=== PATIENT | female | born 1960 | race Caucasian/White ===

== ENCOUNTER → 2018-03-16 09:05 | Outpatient (CLI) | payer MEDICARE, BC, SELFPAY ==
--- NOTE | 2018-03-16 09:10 | US_ITS ---
US abdomen limited History: Ordering Physician:Montana Ibarra MD Patient Age: 57 years Comparison:None Findings: Pancreas:Unremarkable. No obvious mass or abnormal fluid collection. No ductal dilatation Liver:There is increased echogenicity of the liver with poor through transmission of sound consistent with fatty liver. Right Kidney:Unremarkable. Normal size and echogenicity. No hydronephrosis Gallbladder:No gallstones, gallbladder wall thickening, pericholecystic fluid, or biliary dilatation. There is a mild amount sludge within the gallbladder questioned clinical significance. Common bile duct is normal at 4 mm. Impression: 1. Hepatic steatosis. 2. No gallstones evident. Small amount of nonspecific gallbladder sludge
== END ==
PROVIDERS: PCP Internal Medicine Adolescent Medicine; Visit Provider Internal Medicine Adolescent Medicine
DX: R10.11 Right upper quadrant pain (principal)
CPT/HCPCS: 76705

== ENCOUNTER 2018-06-10 13:46 | Inpatient (IN) ==
--- NOTE | 2018-06-10 14:17 | Emergency Department Note ---
ED Disposition Clinical Impression: COPD exacerbation, Influenza B, Hypoxemia Disposition: Admitted As Inpatient Condition on Discharge: Fair Referrals: Mango Albert MD [Primary Care Provider] - - Critical Care Critical Care Time: Yes Attestation: On 06/10/18, the high probability of a clinically significant, sudden or life threatening deterioration of the following system(s) required my full and direct attention, intervention and personal management. The time I documented below is in addition to time spent performing reported procedures but includes the following listed in this critical care notation. Total Critical Care Time: 37 Vital system(s) involved:: Respiratory Failure My critical care processes included: Assessment & monitoring of V/S, Initial and Re-exams, Data Review/Interpretation, Coordinating Care, Medication Orders and management, Documentation Medical Decision Making - Papa Inquiry Pt receiving controlled substance: No Vital Signs: 06/10/18 14:02 06/10/18 14:15 06/10/18 16:16 Temperature 99.9 F H 101.1 F H 98.9 F Temperature Source Oral Oral Oral Pulse Rate [Left Radial] 101 H 82 Pulse Rate [Right Radial] 104 H Respiratory Rate 21 28 H 22 Blood Pressure [Right Arm] 131/63 136/65 116/80 Blood Pressure Mean [Right Arm] 85 88 92 Blood Pressure Source [Right Arm] Automatic Cuff Automatic Cuff Blood Pressure Position [Right Arm] Sitting Sitting 02 Sat by Pulse Oximetry 88 L 88 L 91 L Oxygen Delivery Method Room Air Room Air Room Air Oxygen Flow Rate (LPM) 06/10/18 16:35 06/10/18 17:02 06/10/18 17:40 Temperature Temperature Source Pulse Rate [Left Radial] 91 H Pulse Rate [Right Radial] Respiratory Rate Blood Pressure [Right Arm] 113/57 L 113/60 Blood Pressure Mean [Right Arm] 75 77 Blood Pressure Source [Right Arm] Automatic Cuff Automatic Cuff Blood Pressure Position [Right Arm] Sitting Sitting 02 Sat by Pulse Oximetry 91 L 92 L 87 L Oxygen Delivery Method Room Air Room Air Room Air Oxygen Flow Rate (LPM) 06/10/18 17:41 Temperature Temperature Source Pulse Rate [Left Radial] Pulse Rate [Right Radial] Respiratory Rate Blood Pressure [Right Arm] Blood Pressure Mean [Right Arm] Blood Pressure Source [Right Arm] Blood Pressure Position [Right Arm] 02 Sat by Pulse Oximetry 93 L Oxygen Delivery Method Nasal Cannula Oxygen Flow Rate (LPM) 3 - Lab Data Lab Results 06/10/18 14:15: Influenza Type A Ag Negative, Influenza Type B Ag Positive A 06/10/18 14:23: WBC 11.4 H, RBC 4.47, Hgb 14.1, Hct 42.8, MCV 95.6, MCH 31.5 H, MCHC 32.9, RDW 13.2, Plt Count 241, MPV 6.7 L, Neut % (Auto) 85.7 H, Lymph % (A uto) 9.5 L, [place] % (Auto) 4.4, Eos % (Auto) 0.1, Baso % (Auto) 0.2, Neut # (Auto) 9.7 H, Lymph # (Auto) 1.1, [place] # (Auto) 0.5, Eos # (Auto) 0.0, Baso # (Auto) 0.0, Total Counted 100, Neutrophils % (Manual) 88 H, Lymphocytes % (Manual) 2 L, Atypical Lymphs % 3.0, Monocytes % (Manual) 7, Platelet Estimate Normal, Stomatocytes 1+ 06/10/18 14:23: Sodium 133 L, Potassium 3.8, Chloride 96 L, Carbon Dioxide 26, Anion Gap 14.8, BUN 11, Creatinine 0.93, Estimated Creat Clear 113, Estimated GFR 62, Est GFR ( Amer) 75, Glucose 105, Calcium 8.8, Total Bilirubin 0.8, AST 27, ALT 38, Alkaline Phosphatase 77, Total Protein 7.9, Albumin 3.3 L, Globulin 4.6 H, Albumin/Globulin Ratio 0.7 L 06/10/18 14:23: Lactate 1.2 Result diagrams: 06/10/18 14:23 06/10/18 14:23 Orders (Tests/Meds): ED MEDICATIONS Generic Name Dose Route Start Last Admin Trade Name Freq PRN Reason Stop Dose Admin Sodium Chloride 10 ml 06/10/18 15:01 06/10/18 15:09 Saline Flush 10ml Syringe IV 07/10/18 15:00 10 ml NEEDED PRN Administration Maintain IV Site Discontinued Medications Generic Name Dose Route Start Last Admin Trade Name Freq PRN Reason Stop Dose Admin Acetaminophen 1,000 mg 06/10/18 14:20 06/10/18 14:30 Tylenol 500mg Tablet PO 06/10/18 14:21 1,000 mg ONCE ONE Administration Albuterol/Ipratropium 3 ml 06/10/18 16:37 06/10/18 16:38 Duoneb 3ml Neb IH 06/10/18 16:38 3 ml ONCE ONE Administration Methylprednisolone Sodium Succinate 125 mg 06/10/18 15:02 06/10/18 15:08 Solu-Medrol 125mg/2ml Vial IV 06/10/18 15:03 125 mg ONCE ONE Administration Ondansetron HCl 4 mg 06/10/18 15:12 06/10/18 15:20 Zofran 4mg/2ml Vial IV 06/10/18 15:13 4 mg ONCE ONE Administration Oseltamivir Phosphate 75 mg 06/10/18 15:12 06/10/18 15:26 Tamiflu 75mg Capsule PO 06/10/18 15:13 75 mg ONCE ONE Administration ORDERS Category Date Time Status Blood Culture Stat Micro 06/10/18 14:23 Received - Radiology Data #1 Image(s): Chest Image Reviewed: Yes I reviewed the patient's radiology image Atelectasis in the bases, no acute disease C7 - Physician Consults Physician Consulted: Bety Time: 18:06 Reason -: Admission Comment/Response: Agrees to admit the patient to the hospital. We discussed the patient's clinical information, including history, exam, laboratory and radiology results and ED course. Per hospital procedure, I will write temporary bridge inpatient orders on the patient. Specific orders requested by the admitting physician: No antibiotics. Continue oxygen, nebulizer treatments, steroids - Reevaluation(s) Time: 17:41 Reevaluation #1: Patient states she feels better, however I placed her on room air and her pulse ox went down to 87%. I recommend admission. General Adult HPI - General Stated complaint: SOA cough congested Time Seen by Provider: 06/10/18 14:17 Mode of Arrival: Wheelchair Source of Information: Patient Limitations: No Limitations Description of Symptoms (Recalled from ER Triage Doc. by RN): PT C/O SOA, COUGHING, HEADACHE, FEVER, BODYACHES, CHILLS THAT STARTED LAST NIGHT. PT REPORTS SHE HAS HAD A VIRUS FOR 2 WEEKS AND WAS EXPOSED TO THE FLU LAST WEEK. - History of Present Illness HPI narrative: Productive cough, fever, headache, body aches, rhinorrhea since last night. Prior to that has had URI symptoms for about 2 weeks. Went to the urgent treatment center, positive flu tests in the urgent treatment center, then sent here. Patient has a history of COPD. She is on Spiriva, pro-air, and Advair inhalers. She is not on oxygen at home. She is a smoker. She did not have a flu shot this year. - Related Data Home Medications Medication Instructions Recorded Confirmed Albuterol Sulfate [Proair Hfa 2 puff INHALATION Q6 06/10/18 06/10/18 90mcg/puff Inh] Atorvastatin Calcium [Atorvastatin 80 mg PO DAILY 06/10/18 06/10/18 80mg Tab] Citalopram Hydrobromide [Celexa 20 mg PO DAILY 06/10/18 06/10/18 20mg Tablet] Montelukast Sodium [Montelukast 10 mg PO DAILY 06/10/18 06/10/18 10mg Tab] Pantoprazole Sodium [Protonix 40mg 40 mg PO DAILY 06/10/18 06/10/18 tablet] Tiotropium [place] [Spiriva 1 puff INHALATION Q6 06/10/18 06/10/18 18mcg/puff inhaler] Trazodone HCl 50 mg PO HS 06/10/18 06/10/18 Allergies Allergy/AdvReac Type Severity Reaction Status Date / Time cephalexin [From KEFLEX] Allergy Mild Verified 06/10/18 14:30 Penicillins Allergy Mild Verified 06/10/18 14:22 [facility] History - Hepatitis A Screen Drug use history?: No High risk sexual behaviors?: No History of sexually transmitted infection?: No Currently employed?: No Childcare worker?: No Do you have indoor plumbing?: Yes Do you have electricity?: Yes Attestation statement:: This patient has been screened for Hepatitis A risk factors. I have reviewed the patient's past medical history: Yes - Social History Smoking Status: Current every day smoker Tobacco Type: cigarettes # Packs/Day (cigarettes): 1 Alcohol Intake: never Occupational Status: other - Psychiatric History Expresses thoughts of harming self/others: None Suicide Plan Description: No Plan ROS Obtained: Yes All systems reviewed & no additional complaints - Constitutional Constitutional: Reports body ache, Reports chills, Reports fever(s) - ENT Ears, Nose, Mouth, and Throat: Reports nasal discharge, Denies sore throat - Cardiovascular Cardiovascular: Denies chest pain - Respiratory Respiratory: Yes cough, Yes dyspnea, Yes excessive phlegm production - Gastrointestinal Gastrointestingal: Denies: diarrhea, vomiting Physical Exam - General General appearance: alert, in no apparent distress - Head Head exam: atraumatic, normocephalic - Eye Eye exam: Present: normal appearance, PERRL, EOMI - ENT ENT exam: Present: normal exam, normal oropharynx, mucous membranes moist - Neck Neck exam: Present: normal inspection, full ROM, trachea midline. Absent: meningismus - Chest Chest inspection: Present: normal inspection, symmetric chest wall rise - Respiratory Respiratory exam: Present: normal lung sounds bilaterally, wheezes. Absent: respiratory distress - Cardiovascular Cardiovascular exam: Present: normal rhythm, tachycardia, normal heart sounds - Abdominal Exam Abdominal exam: Present: soft. Absent: distention, tenderness - Extremities Exam Extremities exam: Present: normal inspection, full ROM - Neurological Exam Neurological exam: Present: alert, oriented X3 - Psychiatric Psychiatric exam: Present: normal affect, normal mood - Skin Skin exam: Present: warm, dry
[2018-06-10 14:42] LABS: Basophils % 0.2 % (0.1-2.0); Eosinophils % 0.1 % (0.1-12.0); Hematocrit 42.8 % (37.0-47.0); Hemoglobin 14.1 g/dL (12.2-16.2); Lymphocytes # 1.1 K/mm3 (0.7-4.5); Lymphocytes % 9.5 % (10-50); Mean Corpuscular HGB Conc 32.9 g/dL (31.8-35.4); Mean Corpuscular Hemoglobin 31.5 pg (27.0-31.2); Mean Corpuscular Volume 95.6 fl (81-99); Mean Platelet Volume 6.7 fl (7.4-10.4); Monocytes # 0.5 K/mm3 (0.1-1.0); Monocytes % 4.4 % (1.7-9.3); Neutrophils # 9.7 K/mm3 (1.8-7.8); Neutrophils % 85.7 % (37.0-80.0); Platelet Count 241 K/mm3 (142-424); Red Blood Count 4.47 M/mm3 (4.20-5.40); Red Cell Distribution Width 13.2 % (11.5-17.5); White Blood Count 11.4 K/mm3 (4.8-10.8)
[2018-06-10 14:56] LABS: Albumin Level 3.3 gm/dL (3.4-5.0); Albumin/Globulin Ratio 0.7 (1.1-1.8); Anion Gap 14.8 mEq/L (5-15); Bilirubin,Total 0.8 mg/dL (0.2-1.0); Calcium 8.8 mg/dL (8.5-10.1); Globulin 4.6 gm/dl (1.3-3.2); Potassium 3.8 mmoL/L (3.5-5.1); Total Protein,Serum 7.9 gm/dL (6.4-8.2)
[2018-06-10 15:01] LABS: Lymphocytes % 2 % (10-50); Monocytes % 7 % (2-9); Neutrophils % 88 % (42-76); Total Cells Counted 100
[2018-06-10 15:02] LABS: Stomatocytes 1+
--- NOTE | 2018-06-11 07:31 | Pharmacy Consult Notes ---
[facility] Pharmacy VTE Monitoring - Patient Demographics Admission date: 06/10/18 Report Date: 06/11/18 Time: 07:31 Allergies/Adverse Reactions: Patient Allergies cephalexin [From KEFLEX] Allergy (Mild, Verified 06/10/18 14:30) Penicillins Allergy (Mild, Verified 06/10/18 14:22) Height: 1.65 m Weight: 107.728 kg Patient Problems: Current Active Problems COPD exacerbation (Acute) Influenza B (Acute) Hypoxemia (Acute) - VTE Risk Labs: VTE Related Lab Results Hgb 14.1 g/dL (12.2-16.2) 06/10/18 14:23 Hct 42.8 % (37.0-47.0) 06/10/18 14:23 Plt Count 241 K/mm3 (142-424) 06/10/18 14:23 BUN 11 mg/dL (7-18) 06/10/18 14:23 Creatinine 0.93 mg/dL (0.55-1.02) 06/10/18 14:23 Estimated Creat Clear 113 mL/min (50-200) 06/10/18 14:23 Was VTE Risk Assessment Performed: Yes VTE Score: 5 VTE Risk Level: Low Risk - Prophylaxis VTE Prophylaxis Ordered?: Yes Types of VTE Prophylaxis: TEDS Knee High Location of Applied Device: Bilateral Lower Extremeties - VTE Diagnosis Confirmed Treatment or plan recommended: Continue Current Treatment
--- NOTE | 2018-06-11 08:24 | H&P/Discharge Summary ---
General - General Admission date:: 06/10/18 Discharge date: 06/11/18 *Admission Date: 06/10/18 *Chief complaint: Cough/shortness of air *History of present illness: 57-year-old white female with COPD, who is on ICS/lama/laba inhaler therapy at home who came to the emergency department with cough, wheezing and shortness of air. Found to have positive influenza B titer, chest x-ray was clear, but was wheezing and mildly hypoxic and was admitted to the hospital for oxygen therapy, IV fluids and nebulizer treatments with pulmonary toilet. [facility] History I have reviewed the patient's past medical history: Yes Medical History: Reports:: Chronic Obstructive Pulmonary Disease (COPD), Hyperlipidemia Denies:: Cancer, Diabetes Mellitus Type 1, Diabetes Mellitus Type 2, MRSA *Have you ever received a pneumonia vaccine?: Yes *Have you received a flu vaccine this season?: No Other Medical History: Reports: Hypothyroidism Comment:: Sleep apnea Laterality Cases: Bilateral: Carpal Tunnel Release, Other Other Surgeries: Yes: Colonoscopy, Dilation and Curettage, EGD, Other Amputation: No Fractures: No - *Social History Educational Level: Completed High School Smoking Status: Current every day smoker Tobacco Type: cigarettes # Packs/Day (cigarettes): 1 Alcohol Intake: never *Occupational Status:: disabled Housing: other Household Members: other *Travel in the last 8 weeks: None - Psychiatric History Expresses thoughts of harming self/others: None Suicide Plan Description: No Plan Family Hx:: Cancer, Diabetes, Hyperlipidemia, Hypertension, Stroke Review of Systems - Review of Systems Review of systems:: pertinent systems reviewed and negative unless documented below - Constitutional Reports body ache(s), Reports chills, Reports fever(s), Denies anorexia - Eyes Denies blind spots, Denies blurry vision - ENT Denies abnormal hearing - *Cardiovascular Reports shortness of breath, Reports shortness of breath with activity, Denies chest pain, Denies chest pain at rest, Denies generalized swelling, Denies irregular heart rhythm - *Respiratory Reports chest congestion, Reports cough, Reports shortness of breath, Reports shortness of breath with activity, Denies change in phlegm color - *Gastrointestinal Denies abdominal pain, Denies belching, Denies bloating - *Musculoskeletal Denies abnormal walking, Denies joint pain - Integumentary/Breasts Denies hair loss, Denies bleeding lesions Exam Vital signs and Labs for Last 24 Hours: Temp Pulse Resp BP Pulse Ox 98.1 F 75 18 106/54 L 90 L 06/11/18 04:00 06/11/18 06:02 06/11/18 04:00 06/11/18 04:00 06/11/18 06:02 Laboratory Results - last 24 hr 06/10/18 14:15: Influenza Type A Ag Negative, Influenza Type B Ag Positive A 06/10/18 14:23: WBC 11.4 H, RBC 4.47, Hgb 14.1, Hct 42.8, MCV 95.6, MCH 31.5 H, MCHC 32.9, RDW 13.2, Plt Count 241, MPV 6.7 L, Neut % (Auto) 85.7 H, Lymph % (Auto) 9.5 L, [place] % (Auto) 4.4, Eos % (Auto) 0.1, Baso % (Auto) 0.2, Neut # (Auto) 9.7 H, Lymph # (Auto) 1.1, [place] # (Auto) 0.5, Eos # (Auto) 0.0, Baso # (Auto) 0.0, Total Counted 100, Neutrophils % (Manual) 88 H, Lymphocytes % (Ma nual) 2 L, Atypical Lymphs % 3.0, Monocytes % (Manual) 7, Platelet Estimate Normal, Stomatocytes 1+ 06/10/18 14:23: Sodium 133 L, Potassium 3.8, Chloride 96 L, Carbon Dioxide 26, Anion Gap 14.8, BUN 11, Creatinine 0.93, Estimated Creat Clear 113, Estimated GFR 62, Est GFR ( Amer) 75, Glucose 105, Calcium 8.8, Total Bilirubin 0.8, AST 27, ALT 38, Alkaline Phosphatase 77, Total Protein 7.9, Albumin 3.3 L, Globulin 4.6 H, Albumin/Globulin Ratio 0.7 L 06/10/18 14:23: Lactate 1.2 I & O for Last 24 hours: Intake & Output 06/08/18 06/09/18 06/10/18 06/11/18 11:59 11:59 11:59 11:59 Intake Total 260 / 260 Balance 260 / 260 Weight 237 lb 8 oz Microbiology Reports for the Last 24 Hours: Microbiology 06/11/18 04:30 Sputum - Expectorated Sputum Gram Stain - Final Narrative: Patient is pleasant. Talkative. On room air and able to complete sentences. Eating breakfast well. ENT exam clear. No JVD. Lungs have some rhonchi but symmetric air movement with minimal expiratory wheezing. No crackles. Heart rate regular. No edema, no clubbing, no rash. Abdomen soft. Cranial nerves symmetric, peripheral nerve exam intact. Hospital Course Hospital Course: Patient was admitted overnight. This morning oxygen requirement is improving. Able to eat well and talk without shortness of air. Plan okay to discharge patient home on prednisone, Tamiflu for flu coverage and duo nebs. Short-term follow-up in our office. Results Labs on day of discharge: Labs from last 24 hours 06/10/18 06/10/18 06/10/18 14:23 14:23 14:23 WBC 11.4 H RBC 4.47 Hgb 14.1 Hct 42.8 MCV 95.6 MCH 31.5 H MCHC 32.9 RDW 13.2 Plt Count 241 MPV 6.7 L Neut % (Auto) 85.7 H Lymph % (Auto) 9.5 L [place] % (Auto) 4.4 Eos % (Auto) 0.1 Baso % (Auto) 0.2 Neut # (Auto) 9.7 H Lymph # (Auto) 1.1 [place] # (Auto) 0.5 Eos # (Auto) 0.0 Baso # (Auto) 0.0 Total Counted 100 Neutrophils % (Manual) 88 H Lymphocytes % (Manual) 2 L Atypical Lymphs % 3.0 Monocytes % (Manual) 7 Platelet Estimate Normal Stomatocytes 1+ Sodium 133 L Potassium 3.8 Chloride 96 L Carbon Dioxide 26 Anion Gap 14.8 BUN 11 Creatinine 0.93 Estimated Creat Clear 113 Estimated GFR 62 Est GFR ( Amer) 75 Glucose 105 Lactate 1.2 Calcium 8.8 Total Bilirubin 0.8 AST 27 ALT 38 Alkaline Phosphatase 77 Total Protein 7.9 Albumin 3.3 L Globulin 4.6 H Albumin/Globulin Ratio 0.7 L Influenza Type A Ag Influenza Type B Ag 06/10/18 14:15 WBC RBC Hgb Hct MCV MCH MCHC RDW Plt Count MPV Neut % (Auto) Lymph % (Auto) [place] % (Auto) Eos % (Auto) Baso % (Auto) Neut # (Auto) Lymph # (Auto) [place] # (Auto) Eos # (Auto) Baso # (Auto) Total Counted Neutrophils % (Manual) Lymphocytes % (Manual) Atypical Lymphs % Monocytes % (Manual) Platelet Estimate Stomatocytes Sodium Potassium Chloride Carbon Dioxide Anion Gap BUN Creatinine Estimated Creat Clear Estimated GFR Est GFR ( Amer) Glucose Lactate Calcium Total Bilirubin AST ALT Alkaline Phosphatase Total Protein Albumin Globulin Albumin/Globulin Ratio Influenza Type A Ag Negative Influenza Type B Ag Positive A DS: Diagnosis - Discharge Diagnosis (1) COPD exacerbation Status: Acute (2) Hypoxemia Status: Acute (3) Influenza B Status: Acute Discharge Medications - Medications for Discharge Home Medication List at Discharge: No Action Trazodone HCl 25 - 50 mg PO HS Tiotropium [place] [Spiriva 18mcg/puff inhaler] 1 puff INHALATION Q6H Pantoprazole Sodium [Protonix 40mg tablet] 40 mg PO DAILY Montelukast Sodium [Montelukast 10mg Tab] 10 mg PO HS Atorvastatin Calcium [Atorvastatin 80mg Tab] 80 mg PO DAILY Albuterol Sulfate [Proair Hfa 90mcg/puff Inh] 2 puff INHALATION Q6H Levothyroxine Sodium [Levothyroxine 150mcg (0.15mg) Tab] 150 mcg PO DAILY Citalopram Hydrobromide [Celexa] 40 mg PO DAILY Disposition Disposition: Home, Self-Care
== END 2018-06-11 10:21 | disposition home or self-care (01) | DRG 195 ==
LOC: UTC 13:46 → 2ND 18:21
PROVIDERS: ADMIT Internal Medicine Adolescent Medicine; ATTEND Internal Medicine Adolescent Medicine
CPT/HCPCS: J2405

== ENCOUNTER → 2018-12-13 08:12 | Outpatient (CLI) | payer MEDICARE, BC, SELFPAY ==
[2018-12-13 13:48] LABS: Hemoglobin A1C 6.2 % (0.0-7.0)
[2018-12-13 14:28] LABS: Alanine Aminotransferase 40 U/L (12-78); Albumin Level 3.5 gm/dL (3.4-5.0); Albumin/Globulin Ratio 0.9 (1.1-1.8); Alkaline Phosphatase 85 U/L (46-116); Anion Gap 13.3 mEq/L (5-15); Aspartate Amino Transferase 18 U/L (15-37); Bilirubin,Total 0.3 mg/dL (0.2-1.0); Blood Urea Nitrogen 12 mg/dL (7-18); Calcium 8.9 mg/dL (8.5-10.1); Carbon Dioxide 30 mmol/L (21.0-32.0); Chloride 102 mmol/L (98-107); Chol/HDL Ratio 2.8 (1-3.5); Cholesterol 160 mg/dL (140-200); Creatinine,Serum 0.82 mg/dL (0.55-1.02); Estimated Glomerular Filt Rate 71 ml/min (>60); GFR (African American) 86 ML/MIN (>60); Globulin 3.9 gm/dl (1.3-3.2); Glucose 100 mg/dL (74-106); HDL Cholesterol 57 mg/dL (29-89); LDL Cholesterol 87 mg/dL (0-130); Potassium 4.3 mmoL/L (3.5-5.1); Sodium 141 mmol/L (136-145); Thyroid Stimulating Hormone 3.87 uIU/ml (0.358-3.740); Total Protein,Serum 7.4 gm/dL (6.4-8.2); Triglycerides 81 mg/dL (30-200); VLDL Cholesterol 16 mg/dL (0-40)
== END ==
PROVIDERS: PCP Internal Medicine Adolescent Medicine; Visit Provider Internal Medicine Adolescent Medicine
DX: E11.69 Type 2 diabetes mellitus with other specified complication (principal); E78.2 Mixed hyperlipidemia; E03.9 Hypothyroidism, unspecified
CPT/HCPCS: 36415; 80053; 80061; 83036; 84443

== ENCOUNTER 2019-04-19 16:22 | Observation (INO) ==
--- NOTE | 2019-04-19 16:29 | Emergency Department Note ---
ED Disposition Clinical Impression: Acute exacerbation of chronic obstructive pulmonary disease (COPD), Hypoxia, Respiratory distress Right lower lobe pneumonia Qualifiers: Pneumonia type: due to unspecified organism Qualified Code(s): J18.9 - Pneumonia, unspecified organism Disposition: Admitted as Observation Condition on Discharge: Fair (Stable) Time of Disposition: 17:44 - Critical Care Critical Care Time: No Attestation: On 04/19/19, the high probability of a clinically significant, sudden or life threatening deterioration of the following system(s) required my full and direct attention, intervention and personal management. The time I documented below is in addition to time spent performing reported procedures but includes the following listed in this critical care notation. Medical Decision Making - Medical Records Medical records reviewed: Yes: I reviewed the patient's medical records. - Papa Inquiry Pt receiving controlled substance: No Papa was queried for this patient: No Vital Signs: 04/19/19 16:23 04/19/19 17:49 04/19/19 18:00 Temperature 99.9 F H Temperature Source Oral Pulse Rate 105 H Pulse Rate [Right] 110 H 100 H Respiratory Rate 26 H 24 Blood Pressure [Right Arm] 135/69 145/73 H Blood Pressure Mean [Right Arm] 91 97 Blood Pressure Source [Right Arm] Automatic Cuff Blood Pressure Position [Right Arm] Supine 02 Sat by Pulse Oximetry 91 L 93 L Oxygen Delivery Method Room Air Nasal Cannula Nasal Cannula Oxygen Flow Rate (LPM) 2 - Lab Data Lab Results 04/19/19 16:00: Troponin I < 0.02 04/19/19 16:00: WBC 15.3 H, RBC 4.50, Hgb 14.0, Hct 43.0, MCV 95.5, MCH 31.1, MCHC 32.6, RDW 13.7, Plt Count 301, MPV 7.7, Neut % (Auto) 79.8, Lymph % (Auto) 14.4, [place] % (Auto) 4.5, Eos % (Auto) 0.9, Baso % (Auto) 0.4, Neut # (Auto) 12.2 H, Lymph # (Auto) 2.2, [place] # (Auto) 0.7, Eos # (Auto) 0.1, Baso # (Auto) 0.1, Total Counted 100, Neutrophils % (Manual) 74, Band Neutrophils % 2.0, Lymphocytes % (Manual) 20, Monocytes % (Manual) 4, Platelet Estimate Normal, RBC Morphology Normal 04/19/19 16:00: Sodium 141, Potassium 4.2, Chloride 104, Carbon Dioxide 29, Anion Gap 12.2, BUN 10, Creatinine 1.04 H, Estimated Creat Clear 52, Estimated GFR 54 L, Est GFR ( Amer) 66, Glucose 105, Calcium 8.7 04/19/19 16:00: B-Natriuretic Peptide 30 04/19/19 16:00: Magnesium 1.8, Total Bilirubin 0.4, Direct Bilirubin 0.1, Indirect Bilirubin 0.3, AST 21, ALT 45, Alkaline Phosphatase 84, Total Protein 7.7, Albumin 3.5 04/19/19 16:32: Specimen Source Right radial, O2 % room air, ABG pH 7.43, ABG pCO2 42.0, ABG pO2 55.9 L, ABG HCO3 27.4 H, ABG Total CO2 28.7 H, ABG O2 Saturation 90, ABG Base Excess 3.1 H, Hardeep Test Acceptable 04/19/19 16:46: Influenza Type A Ag Negative, Influenza Type B Ag Negative 04/19/19 16:53: Urine Color Yellow, Urine Appearance Clear, Urine pH 7.0, Ur Specific [place] 1.020, Urine Protein Trace, Urine Glucose (UA) Negative, Urine Ketones Negative, Urine Blood 3+, Urine Nitrate Negative, Urine Bilirubin Negative, Urine Urobilinogen 1.0, Ur Leukocyte Esterase Trace, Urine RBC 10-20, Urine WBC 10-20, Ur Squamous Epith Cells 5-10, Amorphous Sediment Trace, Urine Bacteria None 04/19/19 17:04: Lactate 1.1 Result diagrams: 04/19/19 16:00 04/19/19 16:00 Orders (Tests/Meds): ED MEDICATIONS Generic Name Dose Route Start Last Admin Trade Name Freq PRN Reason Stop Dose Admin Levofloxacin/Dextrose 750 mg in 150 mls @ 100 mls/hr 04/19/19 17:45 04/19/19 17:38 Levofloxacin 750mg/150ml Premix IV 05/03/19 17:44 100 mls/hr Q24H WILTON Administration Protocol Sodium Chloride 10 ml 04/19/19 17:22 04/19/19 17:47 Rad-Saline Flush 10ml Syringe IV 05/19/19 17:21 10 ml NEEDED PRN Administration Maintain IV Site Sodium Chloride 10 ml 04/19/19 17:34 04/19/19 17:47 Rad-Saline Flush 10ml Syringe IV 05/19/19 17:33 10 ml NEEDED PRN Administration Maintain IV Site Discontinued Medications Generic Name Dose Route Start Last Admin Trade Name Kamq PRN Reason Stop Dose Admin Acetaminophen 1,000 mg 04/19/19 16:59 04/19/19 17:04 Tylenol 500mg Tablet PO 04/19/19 17:00 1,000 mg ONCE ONE Administration Albuterol Sulfate 10 mg 04/19/19 16:32 04/19/19 17:22 Albuterol 0.083% 2.5mg/3ml Neb IH 04/19/19 16:33 10 mg ONCE ONE Administration Ioversol 70 ml 04/19/19 17:22 04/19/19 17:35 Rad-Optiray 350 100ml Vial IV 04/19/19 17:23 70 ml ONCE ONE Administration Protocol Ioversol 70 ml 04/19/19 17:34 04/19/19 17:47 Rad-Optiray 350 100ml Vial IV 04/19/19 17:35 70 ml ONCE ONE Administration Protocol Methylprednisolone Sodium Succinate 125 mg 04/19/19 16:33 04/19/19 16:43 Solu-Medrol 125mg/2ml Vial IV 04/19/19 16:34 125 mg ONCE ONE Administration Ondansetron HCl 4 mg 04/19/19 16:30 04/19/19 16:43 Zofran 4mg/2ml Vial IV 04/19/19 16:31 4 mg ONCE ONE Administration Sodium Chloride 10 ml 04/19/19 17:22 04/19/19 17:35 Rad-Ns 50ml Vial IV 04/19/19 17:23 10 ml ONCE ONE Administration ORDERS Category Date Time Status CT Chest w/PE protocol [CT angio chest] Stat Cat Scan 04/19/19 16:34 Taken XR chest portable Stat Exams 04/19/19 16:30 Taken Troponin I Q3H Lab 04/19/19 19:30 Ordered Troponin I Q3H Lab 04/19/19 22:30 Ordered Blood Culture Stat Micro 04/19/19 17:04 Received Urine Culture Stat Micro 04/19/19 16:53 Received ECG Request by /Nse Stat Y 04/19/19 16:30 Ordered - Radiology Data #1 Image(s): Chest Image Reviewed: Yes I reviewed the patient's radiology image Patient's chest x-ray preliminarily read by myself: No free air. No effusion. Blunting of right costophrenic angle. Some haziness to the left costophrenic angle and a left lower lung field area laterally. - CT Data CT Scan: Chest Time Received: 18:29 Findings Narrative: CT angiography chest with IV contrast impression: 1. No discrete pulmonary emboli are seen, although enhancement is less than optimal. 2. Suspected right lower lobe infiltrate/infection, although more extensive pleural parenchymal scarring may have this appearance as well. 3. There is a 1.4 cm retro-cobbledpretracheal lymph node. 4. A follow-up exam is suggested if symptoms persist. - ECG Data Tracing #1 I reviewed this ECG and interpreted as documented below: (EKG at 4:27 PM showed sinus tachycardia with a rate of [address]-T changes noted.) Medical Decision Narrative: 16:46 I have evaluated this patient. EKG performed which showed a sinus tachycardia but otherwise was normal. Portable chest x-ray and cardiopulmonary labs ordered. I have also ordered an albuterol 10 mg nebulizer treatment to be given continuously over 1 hour. I have also ordered Solu-Medrol 125 mg IV push. 17:31 I have discussed this patient's case with her PCP Dr. Albert, will accept care/admission of this patient to observation. I have ordered Levaquin 750 mg IV piggyback, IV steroids and neb treatments for this patient. 18:30 patient reassessed and she appears improved also though she is still having end expiratory wheezing. She is ventilating better. I have discussed results of work-up, diagnosis and care plan with patient to include admission. Patient understands, agrees and all questions answered. Patient will now be admitted. Resp/SOB HPI - General Chief Complaint: Shortness of Breath/Dyspnea Stated Complaint: SOA Time Seen by Provider: 04/19/19 16:22 Mode of Arrival: EMS Source of Information: Patient, EMS Limitations: No Limitations - History of Present Illness Patient is here in emergency room from home via EMS complaining of shortness of breath. Patient has longstanding history of COPD. She does smoke. Patient states that she was down visiting family in [place] and started not feeling well yesterday. Patient states that she has had a productive cough with nasty phlegm since Monday. She began using Mucinex Monday night. She states that she pretty much laid around in bed all day yesterday because she did not feel well. She was driven home today here to [place]. Patient denies having any chest pain. She states that her shortness of breath is gotten worse and that she does have significant dyspnea on exertion. No fever. No chest pain. No abdominal pain. - Related Data Home Medications Medication Instructions Recorded Confirmed Albuterol Sulfate [Proair Hfa 2 puff INHALATION Q6H 06/10/18 06/11/18 90mcg/puff Inh] Atorvastatin Calcium [Atorvastatin 80 mg PO DAILY 06/10/18 06/10/18 80mg Tab] Montelukast Sodium [Montelukast 10 mg PO HS 06/10/18 06/11/18 10mg Tab] Pantoprazole Sodium [Protonix 40mg 40 mg PO DAILY 06/10/18 06/10/18 tablet] Tiotropium [place] [Spiriva 1 puff INHALATION Q6H 06/10/18 06/11/18 18mcg/puff inhaler] Trazodone HCl 25 - 50 mg PO HS 06/10/18 06/11/18 Citalopram Hydrobromide [Celexa] 40 mg PO DAILY 06/11/18 06/11/18 Levothyroxine Sodium 150 mcg PO DAILY 06/11/18 06/11/18 [Levothyroxine 150mcg (0.15mg) Tab] Previous Rx's Medication Instructions Recorded Ipratropium/Albuterol Sulfate 3 ml IH TID PRN #90 neb 06/11/18 [Duoneb 3mL neb] Oseltamivir Phosphate [Tamiflu 75 mg PO BID #10 capsule 06/11/18 75mg Capsule] Allergies Allergy/AdvReac Type Severity Reaction Status Date / Time cephalexin [From [facility]] Allergy Mild Verified 06/10/18 14:30 Penicillins Allergy Mild Verified 06/10/18 14:22 [facility] History - Hepatitis A Screen Drug use history?: No Attestation statement:: This patient has been screened for Hepatitis A risk factors. I have reviewed the patient's past medical history: Yes Medical History: Reports:: Chronic Obstructive Pulmonary Disease (COPD), Hyperlipidemia Denies:: Cancer, Diabetes Mellitus Type 1, Diabetes Mellitus Type 2, MRSA Other Medical History: Reports: Hypothyroidism Comment: Sleep apnea Laterality Cases: Bilateral: Carpal Tunnel Release, Other Other Surgeries: Yes: Colonoscopy, Dilation and Curettage, EGD, Other Amputation: No Fractures: No - Social History Smoking Status: Current every day smoker Tobacco Type: cigarettes # Packs/Day (cigarettes): 1 Alcohol Intake: never Occupational Status: disabled Housing: other Household Members: other Family Hx:: Cancer, Diabetes, Hyperlipidemia, Hypertension, Stroke ROS Obtained: Yes All systems reviewed & no additional complaints - Constitutional Constitutional: Reports system reviewed and no additional complaints, except as docu, Denies chills, Reports fatigue (The past 24 hours), Denies fever(s) - Eyes Eyes: Reports system reviewed and no additional complaints, except as docu - ENT Ears, Nose, Mouth, and Throat: Reports system reviewed and no additional complaints, except as docu - Cardiovascular Cardiovascular: Reports system reviewed and no additional complaints, except as docu, Reports as per HPI, Denies chest pain, Reports dyspnea, Reports dyspnea on exertion, Denies leg edema - Respiratory Respiratory: Yes system reviewed and no additional complaints, except as docu, Yes as per HPI, Yes cough (Cough is been productive with discolored phlegm.), Yes dyspnea, Yes dyspnea on exertion - Gastrointestinal Gastrointestingal: Reports: system reviewed and no additional complaints, except as docu, as per HPI. Denies: abdominal pain, nausea, vomiting - Genitourinary Female Genitourinary: Reports system reviewed and no additional complaints, except as docu, Reports as per HPI, Reports urinary frequency, Reports other (Dysuria) - Musculoskeletal Musculoskeletal: Reports system reviewed and no additional complaints, except as docu - Integumentary/Breasts Skin/Breast: Reports system reviewed and no additional complaints, except as docu - Neurologic Neurologic: Reports system reviewed and no additional complaints, except as docu - Endocrine Endocrine: Reports system reviewed and no additional complaints, except as docu - Hematologic/Lymphatic Henatologic/Lymphatic: Reports system reviewed and no additional complaints, except as docu - Allergic/Immunologic Allergic/Immunologic: Reports system reviewed and no additional complaints, except as docu Physical Exam - General General appearance: alert, other (Patient appears mildly dyspneic.) - Head Head exam: atraumatic, normocephalic, normal inspection - Eye Eye exam: Present: PERRL, EOMI - ENT ENT exam: Present: mucous membranes moist, other (No drainage from ears or nares.) - Neck Neck exam: Present: full ROM, trachea midline - Chest Chest inspection: Present: normal inspection, symmetric chest wall rise - Respiratory Respiratory exam: Present: other (She has noted have equally diminished breath sounds bilaterally with end expiratory wheezing at the bibasilar area posteriorly skilled nursing up. Patient's cough is harsh and rhonchus.) - Cardiovascular Cardiovascular exam: Present: tachycardia, normal heart sounds. Absent: sys tolic murmur, rubs, gallop, clicks - Abdominal Exam Abdominal exam: Present: soft, normal bowel sounds, other (Obese). Absent: distention, tenderness, guarding, rebound - Extremities Exam Extremities exam: Present: normal inspection, full ROM. Absent: tenderness, pedal edema, calf tenderness - Neurological Exam Neurological exam: Present: alert, oriented X3, CN II-XII intact - Psychiatric Psychiatric exam: Present: normal mood, anxious (Mildly) - Skin Skin exam: Present: warm, dry, intact. Absent: rash, diaphoresis
[2019-04-19 16:41] LABS: Basophils # 0.1 K/mm3 (0-0.2); Basophils % 0.4 % (0.1-2.0); Eosinophils # 0.1 K/mm3 (0.0-0.4); Eosinophils % 0.9 % (0.1-12.0); Lymphocytes # 2.2 K/mm3 (0.7-4.5); Lymphocytes % 14.4 % (10-50); Mean Corpuscular HGB Conc 32.6 g/dL (31.8-35.4); Mean Corpuscular Volume 95.5 fl (81-99); Mean Platelet Volume 7.7 fl (7.4-10.4); Monocytes # 0.7 K/mm3 (0.1-1.0); Monocytes % 4.5 % (1.7-9.3); Neutrophils # 12.2 K/mm3 (1.8-7.8); Neutrophils % 79.8 % (37.0-80.0); Platelet Count 301 K/mm3 (142-424); Red Cell Distribution Width 13.7 % (11.5-17.5); White Blood Count 15.3 K/mm3 (4.8-10.8)
[2019-04-19 16:46] LABS: ABG Base Excess 3.1 mmol/L (-2.4-2.3); ABG HCO3 27.4 mmhg (22.0-26.0); ABG Oxygen Saturation 90 % (90-100); ABG PH 7.43 mmol/L (7.35-7.45); ABG PO2 55.9 mmhg (80-100); ABG TCO2 28.7 mmhg (23-27)
[2019-04-19 16:48] LABS: Allen's Test Acceptable; Oxygen room air %
[2019-04-19 16:53] LABS: Lymphocytes % 20 % (10-50); Monocytes % 4 % (2-9); Neutrophils % 74 % (42-76); RBC Morphology Normal; Total Cells Counted 100
[2019-04-19 16:54] LABS: Anion Gap 12.2 mEq/L (5-15); Calcium 8.7 mg/dL (8.5-10.1)
[2019-04-19 16:57] LABS: Albumin Level 3.5 gm/dL (3.4-5.0); Bilirubin,Direct 0.1 mg/dL (0.0-0.2); Bilirubin,Indirect 0.3 mg/dL (0.0-0.9); Bilirubin,Total 0.4 mg/dL (0.2-1.0); Total Protein,Serum 7.7 gm/dL (6.4-8.2)
[2019-04-19 16:59] LABS: Microscopic, Urine URINE MICROSCOPIC (MICROSCOPIC)
[2019-04-19 17:01] LABS: Appearance,Urine CLEAR (Clear); Bilirubin,Urine Negative (Negative); Blood, Urine 3+ (Negative); Color,Urine YELLOW (Yellow); Glucose,Urine (UA) Negative (Negative); Ketones,Urine Negative (Negative); Leukocyte Esterase,Urine TRACE (Negative); Protein,Urine TRACE (Negative)
[2019-04-19 17:11] LABS: Amorphous Sediment,Urine Trace /lpf
[2019-04-20 07:24] LABS: Basophils % 0.1 % (0.1-2.0); Hematocrit 41.7 % (37.0-47.0); Hemoglobin 13.1 g/dL (12.2-16.2); Lymphocytes # 1.2 K/mm3 (0.7-4.5); Lymphocytes % 8.6 % (10-50); Mean Corpuscular HGB Conc 31.5 g/dL (31.8-35.4); Mean Platelet Volume 7.7 fl (7.4-10.4); Monocytes # 0.3 K/mm3 (0.1-1.0); Monocytes % 2.3 % (1.7-9.3); Neutrophils # 12.4 K/mm3 (1.8-7.8); Platelet Count 314 K/mm3 (142-424); Red Blood Count 4.21 M/mm3 (4.20-5.40); Red Cell Distribution Width 13.5 % (11.5-17.5); White Blood Count 13.9 K/mm3 (4.8-10.8)
[2019-04-20 07:32] LABS: Anion Gap 13.1 mEq/L (5-15); Calcium 8.5 mg/dL (8.5-10.1)
[2019-04-20 07:46] LABS: Lymphocytes % 7 % (10-50); Monocytes % 2 % (2-9); Neutrophils % 91 % (42-76); RBC Morphology Normal; Total Cells Counted 100
--- NOTE | 2019-04-20 09:08 | History & Physical Report ---
*Admission Date: 04/19/19 *Chief complaint: Cough/shortness of air *History of present illness: 58-year-old white female, afflicted with COPD, nicotine abuse and morbid obesity presented to the emergency department with cough, congestion, shortness of air and was found to be hypoxic. CTA revealed no evidence of pulmonary embolism but did reveal infiltrate in the right chest and significant evidence of pulmonary scarring, COPD and some very nonspecific pulmonary nodules. Given her wheezing, need for repetitive neb treatments and significant comorbidities she is admitted to hospital for further diagnostic testing and inpatient therapy. [facility] History I have reviewed the patient's past medical history: Yes Medical History: Reports:: Chronic Obstructive Pulmonary Disease (COPD), Hyperlipidemia Denies:: Cancer, Diabetes Mellitus Type 1, Diabetes Mellitus Type 2, MRSA *Have you ever received a pneumonia vaccine?: Yes *Have you received a flu vaccine this season?: Yes Other Medical History: Reports: Hypothyroidism, Liver Disease Laterality Cases: Bilateral: Carpal Tunnel Release, Other Other Surgeries: Yes: Colonoscopy, Dilation and Curettage, EGD, Tubal Ligation, Other Amputation: No Fractures: No - *Social History Educational Level: Completed High School Smoking Status: Current every day smoker Tobacco Type: cigarettes # Packs/Day (cigarettes): 1 Alcohol Intake: never *Occupational Status:: disabled Housing: other Household Members: other *Travel in the last 8 weeks: Inside the [place] Family Hx:: Cancer, Coronary Artery Disease, Diabetes, Heart Attack, Hyperlipidemia, Hypertension, Stroke, Thyroid Disorder Review of Systems - Review of Systems Review of systems:: pertinent systems reviewed and negative unless documented below - Constitutional Denies anorexia, Denies body ache(s) - Eyes Denies blind spots, Denies blurry vision - ENT Denies abnormal hearing, Denies dizziness, Denies dry mouth - *Cardiovascular Reports shortness of breath, Reports shortness of breath with activity, Denies chest pain, Denies chest pain with activity - *Respiratory Reports change in phlegm color, Reports chest congestion, Reports cough, Reports shortness of breath, Reports excessive phlegm production - *Gastrointestinal Denies abdominal pain, Denies change in stools - *Genitourinary Denies abnormal periods - *Musculoskeletal Denies abnormal walking Meds Home Medications Medication Instructions Recorded Confirmed Type Albuterol Sulfate [Proair Hfa 2 puff INHALATION Q6H 06/10/04/19/19 History 90mcg/puff Inh] Atorvastatin Calcium [Atorvastatin 80 mg PO HS 06/10/18 04/19/19 History 80mg Tab] Montelukast Sodium [Montelukast 10 mg PO HS 06/10/18 04/19/19 History 10mg Tab] Pantoprazole Sodium [Protonix 40mg 40 mg PO HS 06/10/18 04/19/19 History tablet] Citalopram Hydrobromide [Celexa] 40 mg PO HS 06/11/18 04/19/19 History Ipratropium/Albuterol Sulfate 3 ml IH TID PRN #90 neb 06/11/18 04/19/19 Rx [Duoneb 3mL neb] Levothyroxine Sodium 150 mcg PO DAILY 06/11/18 04/19/19 History [Levothyroxine 150mcg (0.15mg) Tab] Acyclovir [Zovirax 400mg tablet] 400 mg PO HS 04/19/19 04/19/19 History Fluticasone Propion/Salmeterol 1 each IH BID 04/19/19 04/19/19 History [[place] 250-50 Inhub] Umeclidinium [place] [Incruse 62.5 mcg IH DAILY 04/19/19 04/19/19 History Ellipta] Allergies Allergy/AdvReac Type Severity Reaction Status Date / Time cephalexin [[facility]] Allergy Mild Verified 06/10/18 14:30 Penicillins Allergy Mild Verified 06/10/18 14:22 Exam Vital signs and Labs for Last 24 Hours: Temp Pulse Resp BP Pulse Ox 97.5 F L 80 18 149/80 H 92 L 04/20/19 08:00 04/20/19 08:04 04/20/19 08:04 04/20/19 08:00 04/20/19 08:04 Laboratory Results - last 24 hr 04/19/19 16:00: Troponin I < 0.02 04/19/19 16:00: WBC 15.3 H, RBC 4.50, Hgb 14.0, Hct 43.0, MCV 95.5, MCH 31.1, MCHC 32.6, RDW 13.7, Plt Count 301, MPV 7.7, Neut % (Auto) 79.8, Lymph % (Auto) 14.4, [place] % (Auto) 4.5, Eos % (Auto) 0.9, Baso % (Auto) 0.4, Neut # (Auto) 12.2 H, Lymph # (Auto) 2.2, [place] # (Auto) 0.7, Eos # (Auto) 0.1, Baso # (Auto) 0.1, Total Counted 100, Neutrophils % (Manual) 74, Band Neutrophils % 2.0, Lymphocytes % (Manual) 20, Monocytes % (Manual) 4, Platelet Estimate Normal, RBC Morphology Normal 04/19/19 16:00: Sodium 141, Potassium 4.2, Chloride 104, Carbon Dioxide 29, Anion Gap 12.2, BUN 10, Creatinine 1.04 H, Estimated Creat Clear 52, Estimated GFR 54 L, Est GFR ( Amer) 66, Glucose 105, Calcium 8.7 04/19/19 16:00: B-Natriuretic Peptide 30 04/19/19 16:00: Magnesium 1.8, Total Bilirubin 0.4, Direct Bilirubin 0.1, Indirect Bilirubin 0.3, AST 21, ALT 45, Alkaline Phosphatase 84, Total Protein 7.7, Albumin 3.5 04/19/19 16:32: Specimen Source Right radial, O2 % room air, ABG pH 7.43, ABG pCO2 42.0, ABG pO2 55.9 L, ABG HCO3 27.4 H, ABG Total CO2 28.7 H, ABG O2 Saturation 90, ABG Base Excess 3.1 H, Hardeep Test Acceptable 04/19/19 16:46: Influenza Type A Ag Negative, Influenza Type B Ag Negative 04/19/19 16:53: Urine Color Yellow, Urine Appearance Clear, Urine pH 7.0, Ur Specific [place] 1.020, Urine Protein Trace, Urine Glucose (UA) Negative, Urine Ketones Negative, Urine Blood 3+, Urine Nitrate Negative, Urine Bilirubin Negative, Urine Urobilinogen 1.0, Ur Leukocyte Esterase Trace, Urine RBC 10-20, Urine WBC 10-20, Ur Squamous Epith Cells 5-10, Amorphous Sediment Trace, Urine Bacteria None 04/19/19 17:04: Lactate 1.1 04/19/19 19:41: Troponin I < 0.02 04/19/19 22:44: Troponin I < 0.02 04/20/19 06:50: WBC 13.9 H, RBC 4.21, Hgb 13.1, Hct 41.7, MCV 99.0, MCH 31.2, MCHC 31.5 L, RDW 13.5, Plt Count 314, MPV 7.7, Neut % (Auto) 89.0 H, Lymph % (Auto) 8.6 L, [place] % (Auto) 2.3, Eos % (Auto) 0.0 L, Baso % (Auto) 0.1, Neut # (Auto) 12.4 H, Lymph # (Auto) 1.2, [place] # (Auto) 0.3, Eos # (Auto) 0.0, Baso # (Auto) 0.0, Total Counted 100, Neutrophils % (Manual) 91 H, Lymphocytes % (Manual) 7 L, Monocytes % (Manual) 2, Platelet Estimate Normal, RBC Morphology Normal 04/20/19 06:50: Sodium 134 L, Potassium 4.1, Chloride 100, Carbon Dioxide 25, Anion Gap 13.1, BUN 11, Creatinine 0.96, Estimated Creat Clear 57, Estimated GFR 59, Est GFR ( Amer) 72, Glucose 241 H D, Calcium 8.5 I & O for Last 24 hours: Intake & Output 04/17/19 04/18/19 04/19/19 04/20/19 11:59 11:59 11:59 11:59 Intake Total 2203 / 2203 Output Total 600 / 600 Balance 1603 / 1603 Weight 252 lb 2 oz Microbiology Reports for the Last 24 Hours: Microbiology 04/19/19 17:55 Sputum - Endotracheal Wash Gram Stain - Final Narrative: Patient is awake, alert, oriented x3. Sitting up in the bed. Coughing up significant amounts of green/tia sputum. No JVD but her obesity limits accuracy of her exam. Heart rate regular. Abdomen soft, obesity noted. No edema or clubbing. Patient's lungs have diffuse wheezing, but better air entry than described yesterday in the ER note. Crackles and rhonchi in both middle lung arauz. Assessment and Plan (1) Morbid obesity Current visit: Yes Status: Acute Category: Medical Code(s): E66.01 - Morbid (severe) obesity due to excess calories Complicates all aspects of her care (2) Pulmonary nodules Current visit: Yes Status: Acute Category: Medical Code(s): R91.8 - Other nonspecific abnormal finding of lung field Nonspecific on CT, but will warrant further follow-up as an outpatient (3) Personal history of nicotine dependence Current visit: Yes Status: Acute Category: Medical Code(s): Z87.891 - Personal history of nicotine dependence Complicates her care, discussed cessation. Start nicotine patch (4) COPD exacerbation Current visit: Yes Status: Acute Category: Medical Code(s): J44.1 - Chronic obstructive pulmonary disease with (acute) exacerbation Requires IV steroids, antibiotics and enhanced pulmonary toilet. (5) Hypoxia Current visit: Yes Status: Acute Category: Medical Code(s): R09.02 - Hypoxemia Improving, continue oxygen supplementation (6) Respiratory distress Current visit: Yes Status: Acute Category: Medical Code(s): R06.03 - Acute respiratory distress (7) Right lower lobe pneumonia Current visit: Yes Status: Acute Qualifiers: Pneumonia type: due to unspecified organism Qualified Code(s): J18.9 - Pneumonia, unspecified organism Category: Medical Code(s): J18.9 - Pneumonia, unspecified organism Antibiotics on board. Await culture results.
--- NOTE | 2019-04-20 13:16 | Pharmacy Consult Notes ---
[facility] Pharmacy VTE Monitoring - Patient Demographics Admission date: 04/20/19 Report Date: 04/20/19 Time: 13:15 Allergies/Adverse Reactions: Patient Allergies cephalexin [From KEFLEX] Allergy (Mild, Verified 06/10/18 14:30) Penicillins Allergy (Mild, Verified 06/10/18 14:22) Height: 1.65 m Weight: 114.362 kg Patient Problems: Current Active Problems COPD exacerbation (Acute) Hypoxia (Acute) Respiratory distress (Acute) Right lower lobe pneumonia (Acute) Morbid obesity (Acute) Pulmonary nodules (Acute) Personal history of nicotine dependence (Acute) - VTE Risk Labs: VTE Related Lab Results Hgb 13.1 g/dL (12.2-16.2) 04/20/19 06:50 Hct 41.7 % (37.0-47.0) 04/20/19 06:50 Plt Count 314 K/mm3 (142-424) 04/20/19 06:50 BUN 11 mg/dL (7-18) 04/20/19 06:50 Creatinine 0.96 mg/dL (0.55-1.02) 04/20/19 06:50 Estimated Creat Clear 57 mL/min (50-200) 04/20/19 06:50 Was VTE Risk Assessment Performed: Yes VTE Score: 4 VTE Risk Level: Low Risk - Prophylaxis Types of VTE Prophylaxis: TEDS Knee High ([place] ORDER PLACED)
--- NOTE | 2019-04-20 19:06 | Electrocardiograph Report ---
APPROVED REPORT Exam: Resting ECG HR:105 bpm ECG Measurements Heart Rate 105 AXES MN 146 P 63 QRSd 84 QRS 49 QT 356 T59 QTc 470 <Conclusion> Sinus tachycardia Otherwise normal ECG Electronically signed by : Mango Albert, 04/20/2019 19:05:23
[2019-04-21 06:15] LABS: Basophils # 0.1 K/mm3 (0-0.2); Basophils % 0.2 % (0.1-2.0); Eosinophils % 0.2 % (0.1-12.0); Hematocrit 39.6 % (37.0-47.0); Hemoglobin 12.7 g/dL (12.2-16.2); Lymphocytes # 1.8 K/mm3 (0.7-4.5); Lymphocytes % 8.6 % (10-50); Mean Corpuscular Volume 95.4 fl (81-99); Mean Platelet Volume 7.3 fl (7.4-10.4); Monocytes # 0.8 K/mm3 (0.1-1.0); Monocytes % 3.6 % (1.7-9.3); Neutrophils # 18.2 K/mm3 (1.8-7.8); Neutrophils % 87.4 % (37.0-80.0); Platelet Count 365 K/mm3 (142-424); Red Blood Count 4.15 M/mm3 (4.20-5.40); Red Cell Distribution Width 13.6 % (11.5-17.5); White Blood Count 20.8 K/mm3 (4.8-10.8)
[2019-04-21 06:26] LABS: Lymphocytes % 5 % (10-50); Neutrophils % 88 % (42-76); RBC Morphology Normal; Total Cells Counted 100
--- NOTE | 2019-04-21 08:53 | Progress Note ---
Internal Medicine - PN: Subj *Date: 04/21/19 *Time: 08:52 Interval history: Overall patient has improved per nursing staff and per her report, sputum production is somewhat less. Less wheezing. Less tightness. Has been able to transition to the chair without significant shortness of air. Exam Vital signs and Labs for Last 24 Hours: Temp Pulse Resp BP Pulse Ox 97.6 F 89 20 140/77 92 L 04/21/19 08:00 04/21/19 08:00 04/21/19 08:00 04/21/19 08:00 04/21/19 08:00 Laboratory Results - last 24 hr 04/21/19 05:55: WBC 20.8 H* D, RBC 4.15 L, Hgb 12.7, Hct 39.6, MCV 95.4, MCH 30 .5, MCHC 32.0, RDW 13.6, Plt Count 365, MPV 7.3 L, Neut % (Auto) 87.4 H, Lymph % (Auto) 8.6 L, [place] % (Auto) 3.6, Eos % (Auto) 0.2, Baso % (Auto) 0.2, Neut # (Auto) 18.2 H, Lymph # (Auto) 1.8, [place] # (Auto) 0.8, Eos # (Auto) 0.0, Baso # (Auto) 0.1, Total Counted 100, Neutrophils % (Manual) 88 H, Band Neutrophils % 7.0, Lymphocytes % (Manual) 5 L, Platelet Estimate Normal, RBC Morphology Normal I & O for Last 24 hours: Intake & Output 04/18/19 04/19/19 04/20/19 04/21/19 11:59 11:59 11:59 11:59 Intake Total 2203 / 2203 2339 / 2339 Output Total 600 / 600 1250 / 1250 Balance 1603 / 1603 1089 / 1089 Weight 252 lb 2 oz 255 lb Microbiology Reports for the Last 24 Hours: Microbiology 04/19/19 17:55 Sputum - Endotracheal Wash Gram Stain - Final 04/19/19 17:55 Sputum - Endotracheal Wash Sputum Culture - Preliminary 04/19/19 16:53 Urine,Clean Catch Urine Culture - Preliminary NO GROWTH AFTER 24 HOURS Narrative: Still oxygen requiring. Still with wheezing and crackles in both lower lung arauz however tightness is much better and air movement is better. No tracheal deviation. Heart rate regular without murmurs. No clubbing, edema or cyanosis. Abdomen soft, obese. ENT exam otherwise clear. Assessment and Plan (1) Morbid obesity Current visit: Yes Status: Acute Category: Medical Code(s): E66.01 - Morb id (severe) obesity due to excess calories (2) Pulmonary nodules Current visit: Yes Status: Acute Category: Medical Code(s): R91.8 - Other nonspecific abnormal finding of lung field (3) Personal history of nicotine dependence Current visit: Yes Status: Acute Category: Medical Code(s): Z87.891 - Personal history of nicotine dependence (4) COPD exacerbation Current visit: Yes Status: Acute Category: Medical Code(s): J44.1 - Chron ic obstructive pulmonary disease with (acute) exacerbation (5) Hypoxia Current visit: Yes Status: Acute Category: Medical Code(s): R09.02 - Hypoxemia (6) Respiratory distress Current visit: Yes Status: Acute Category: Medical Code(s): R06.03 - Acute respiratory distress (7) Right lower lobe pneumonia Current visit: Yes Status: Acute Qualifiers: Pneumonia type: due to unspecified organism Qualified Code(s): J18.9 - Pneumonia, unspecified organism Category: Medical Code(s): J18.9 - Pneumonia, unspecified organism - Assessment and plan all Dx Assessment and Plan for all problems:: Overall improving but still requiring inpatient antibiotics, await sensitivity panels to assess for suitable transition to p.o. antibiotics at home. Transition from IV to p.o. steroids. Continue oxygen therapy and enhanced pulmonary toilet given her significant sputum production.
[2019-04-22 06:19] LABS: Anion Gap 12.8 mEq/L (5-15)
[2019-04-22 06:21] LABS: Basophils % 0.2 % (0.1-2.0); Eosinophils % 0.1 % (0.1-12.0); Hematocrit 40.2 % (37.0-47.0); Hemoglobin 12.6 g/dL (12.2-16.2); Lymphocytes # 2.3 K/mm3 (0.7-4.5); Lymphocytes % 13.5 % (10-50); Mean Corpuscular HGB Conc 31.3 g/dL (31.8-35.4); Mean Corpuscular Volume 96.4 fl (81-99); Mean Platelet Volume 7.2 fl (7.4-10.4); Monocytes # 0.9 K/mm3 (0.1-1.0); Monocytes % 5.3 % (1.7-9.3); Neutrophils # 13.8 K/mm3 (1.8-7.8); Neutrophils % 80.9 % (37.0-80.0); Platelet Count 343 K/mm3 (142-424); Red Blood Count 4.17 M/mm3 (4.20-5.40); Red Cell Distribution Width 13.6 % (11.5-17.5)
--- NOTE | 2019-04-22 08:22 | Discharge Summary ---
General - General Admission date:: 04/19/19 Discharge date: 04/22/19 HPI HPI: 58-year-old white female, afflicted with COPD, nicotine abuse and morbid obesity presented to the emergency department with cough, congestion, shortness of air and was found to be hypoxic. CTA revealed no evidence of pulmonary embolism but did reveal infiltrate in the right chest and significant evidence of pulmonary scarring, COPD and some very nonspecific pulmonary nodules. Given her wheezing, need for repetitive neb treatments and significant comorbidities she is admitted to hospital for further diagnostic testing and inpatient therapy. Hospital Course Hospital Course: Patient was admitted, placed on levofloxacin and did well, tolerated this medication well, placed on high-dose steroids, wheezing improved, sputum hector lawson was impressive and helped her feel much better with better air movement in her lungs. Blood cultures negative, sputum cultures nondiagnostic at the time of discharge. She improved very nicely, oxygen requirements diminished and this morning she was back to baseline at rest. She will be discharged home with antibiotics, steroids, nicotine patch after tobacco cessation counseling was accomplished and meds for her nebulizer machine. Advised her to take nebs 4 times daily. We will follow her up in our offices in [place] on . Objective Vital signs: Temp Pulse Resp BP Pulse Ox 97.6 F 98 H 17 137/73 90 L 04/22/19 04:00 04/22/19 05:12 04/22/19 04:00 04/22/19 04:00 04/22/19 05:12 Narrative: Patient up in chair, no distress, 92% oxygenation on room air. Oropharynx clear, no JVD but obesity limits her exam accuracy. Heart rate regular. Lungs much better with fairly good air entry. Minimal rhonchi with forced expiration. No edema or clubbing. Neurologically intact. Abdomen soft Results Labs on day of discharge: Labs from last 24 hours 04/22/19 04/22/19 05:28 05:28 WBC 17.0 H RBC 4.17 L Hgb 12.6 Hct 40.2 MCV 96.4 MCH 30.1 MCHC 31.3 L RDW 13.6 Plt Count 343 MPV 7.2 L Neut % (Auto) 80.9 H Lymph % (Auto) 13.5 [place] % (Auto) 5.3 Eos % (Auto) 0.1 Baso % (Auto) 0.2 Neut # (Auto) 13.8 H Lymph # (Auto) 2.3 [place] # (Auto) 0.9 Eos # (Auto) 0.0 Baso # (Auto) 0.0 Sodium 143 Potassium 3.8 Chloride 105 Carbon Dioxide 29 Anion Gap 12.8 BUN 14 D Creatinine 0.99 Estimated Creat Clear 55 Estimated GFR 57 L Est GFR ( Amer) 69 Glucose 162 H Calcium 8.0 L Preliminary micro results at discharge 04/19/19 17:04 Blood Culture - Preliminary Blood NO GROWTH AFTER 48 HOURS 04/19/19 17:04 Blood Culture - Preliminary Blood NO GROWTH AFTER 48 HOURS 04/19/19 17:55 Sputum Culture - Preliminary Sputum - Endotracheal Wash DS: Diagnosis - Discharge Diagnosis (1) Morbid obesity Status: Chronic (2) Pulmonary nodules Status: Chronic Problem details: Will need follow-up CT scan in 3 months as an outpatient (3) Personal history of nicotine dependence Status: Chronic (4) COPD exacerbation Status: Acute (5) Hypoxia Status: Acute (6) Respiratory distress Status: Acute (7) Right lower lobe pneumonia Status: Acute Discharge Plan - Patient Discharge Instructions ACTIVITY: Continue current activity DIET: low fat, low cholesterol Patient Instructions: DI for Chronic Obstructive Pulmonary Disease, DI for Pneumonia -- Adult - Follow up Plan Follow up with: Aubrie Ramírez APRN [Nurse Practitioner] - 04/25/19 Disposition: Home, Self-Alf Medications: Home Medications Medication Instructions Recorded Confirmed Type Albuterol Sulfate [Proair Hfa 2 puff INHALATION Q6H 06/10/18 04/19/19 History 90mcg/puff Inh] Atorvastatin Calcium [Atorvastatin 80 mg PO HS 06/10/18 04/19/19 History 80mg Tab] Montelukast Sodium [Montelukast 10 mg PO HS 06/10/18 04/19/19 History 10mg Tab] Pantoprazole Sodium [Protonix 40mg 40 mg PO HS 06/10/18 04/19/19 History tablet] Citalopram Hydrobromide [Celexa] 40 mg PO HS 06/11/18 04/19/19 History Levothyroxine Sodium 150 mcg PO DAILY 06/11/18 04/19/19 History [Levothyroxine 150mcg (0.15mg) Tab] Acyclovir [Zovirax 400mg tablet] 400 mg PO HS 04/19/19 04/19/19 History Fluticasone Propion/Salmeterol 1 each IH BID 04/19/19 04/19/19 History [Wixela 250-50 Inhub] Umeclidinium [place] [Incruse 62.5 mcg IH DAILY 04/19/19 04/19/19 History Ellipta] Ipratropium/Albuterol Sulfate 3 ml IH TID PRN #90 neb 04/22/19 Rx [Duoneb 3mL neb] Nicotine [Nicotine Patch 21 mg TD DAILY #30 patch 04/22/19 Rx 21mg/24hrs] levoFLOXacin [Levaquin 500mg 500 mg PO DAILY #7 tab 04/22/19 Rx tab] predniSONE [Deltasone 20mg 20 mg PO BID 7 Days #14 tab 04/22/19 Rx tablet] Prescriptions/Medication Reconciliation: New levoFLOXacin [Levaquin 500mg tab] 500 mg PO DAILY #7 tab predniSONE [Deltasone 20mg tablet] 20 mg PO BID 7 Days #14 tab Nicotine [Nicotine Patch 21mg/24hrs] 21 mg TD DAILY #30 patch Continued Pantoprazole Sodium [Protonix 40mg tablet] 40 mg PO HS Montelukast Sodium [Montelukast 10mg Tab] 10 mg PO HS Atorvastatin Calcium [Atorvastatin 80mg Tab] 80 mg PO HS Albuterol Sulfate [Proair Hfa 90mcg/puff Inh] 2 puff INHALATION Q6H Acyclovir [Zovirax 400mg tablet] 400 mg PO HS Levothyroxine Sodium [Levothyroxine 150mcg (0.15mg) Tab] 150 mcg PO DAILY Citalopram Hydrobromide [Celexa] 40 mg PO HS Umeclidinium [place] [Incruse Ellipta] 62.5 mcg IH DAILY Fluticasone Propion/Salmeterol [Wixela 250-50 Inhub] 1 each IH BID Ipratropium/Albuterol Sulfate [Duoneb 3mL neb] 3 ml IH TID PRN #90 neb PRN Reason: Wheezing - Problem Reconciliation Problems Reviewed?: Yes
[2019-04-22 09:02] LABS: Lymphocytes % 12 % (10-50); Monocytes % 6 % (2-9); Neutrophils % 82 % (42-76); RBC Morphology Normal; Total Cells Counted 100
== END 2019-04-22 12:14 | disposition home or self-care (01) ==
LOC: ER 16:22 → 2ND 16:22
PROVIDERS: ADMIT Internal Medicine Adolescent Medicine; ATTEND Internal Medicine Adolescent Medicine
CPT/HCPCS: 36415; 71010; 71045; 71275; 80048; 80076; 81001; 82803; 83605; 83735; 83880; 84484; 85007; 85025; 87040; 87070; 87086; 87205; 87275; 87276; 93005; 94640; 94761; 96367; 96374; 96375; 99284; G0378; J1956; J2405; Q9967

== ENCOUNTER 2020-04-06 07:02 | Observation (INO) | payer MEDICARE, BC, SELFPAY ==
[2020-04-06] VITALS (16 sets, daily range): BP systolic 126–154; BP diastolic 72–88; PULSE 85–105; RESP 16–26; TEMP 36.6–37.1; O2SAT 90–96; BMI 40.4; BMI 39.5
--- NOTE | 2020-04-06 07:04 | ECG_ITS ---
APPROVED REPORT Exam: Resting ECG HR:100 bpm ECG Measurements Heart Rate 100 AXES NV 154 P 68 QRSd 70 QRS 39 QT 348 T 57 QTc 448 Conclusion Normal sinus rhythm Nonspecific ST abnormality Abnormal ECG Electronically signed by : Mango Albert, 04/06/2020 22:43:29
--- NOTE | 2020-04-06 07:16 | XR_ITS ---
PROCEDURE: XR CHEST 2V CLINICAL HISTORY: soa Shortness of air, smoker COMPARISON: CR CXR CHEST(2 VIEWS-NOT PORTABLE) from 03/30/2015 CR CXR2V XR chest 2V from 06/10/2018 CR XR CHEST PORTABLE from 04/19/[address] ANGIO CHEST from 04/19/2019 FINDINGS: The cardiomediastinal silhouette and pulmonary vascularity are within normal limits. The lungs are clear without infiltrates, suspicious nodules, or pleural effusions. Changes of COPD. No acute bony findings. IMPRESSION: COPD. No change with no acute finding Dictated by: Hardeep Norton MD 04/06/2020 10:07 Hardeep Norton MD in [place] 04/06/2020 10:07
--- NOTE | 2020-04-06 07:19 | HMH.EDSOB ---
ED Disposition Clinical Impression: Acute exacerbation of chronic obstructive airways disease, Viral pneumonitis, Personal history of nicotine dependence, Severe sepsis with acute organ dysfunction Obesity Qualifiers: Obesity type: due to excess calories Obesity classification: adult class 3 (BMI >= 40) Serious obesity comorbidity presence: with serious comorbidity Body mass index: BMI 40.0-44.9 Qualified Code(s): E66.01 - Morbid (severe) obesity due to excess calories; Z68.41 - Body mass index [BMI]40.0-44.9, adult Respiratory failure with hypercapnia Qualifiers: Chronicity: acute on chronic Qualified Code(s): J96.22 - Acute and chronic respiratory failure with hypercapnia Disposition: Admitted As Inpatient Condition on Discharge: Good Referrals: Mango Albert MD [Primary Care Provider] - - Critical Care Critical Care Time: No Attestation: On 04/06/20, the high probability of a clinically significant, sudden or life threatening deterioration of the following system(s) required my full and direct attention, intervention and personal management. The time I documented below is in addition to time spent performing reported procedures but includes the following listed in this critical care notation. Medical Decision Making - Medical Records Medical records reviewed: Yes: I reviewed the patient's medical records. - Papa Inquiry Pt receiving controlled substance: No Vital Signs: 04/06/20 07:03 04/06/20 07:45 04/06/20 08:10 Temperature 98.7 F Temperature Source Oral Pulse Rate [Right] 105 H 94 H 95 H Respiratory Rate 26 H 18 22 Blood Pressure [Left Arm] 150/88 H 142/88 H 153/85 H Blood Pressure Mean [Left Arm] 108 106 107 Blood Pressure Source [Left Arm] Automatic Cuff Automatic Cuff Automatic Cuff Blood Pressure Position [Left Arm] Sitting Sitting Sitting 02 Sat by Pulse Oximetry 90 L 92 L 90 L Oxygen Delivery Method Room Air Nasal Cannula Oxygen Flow Rate (LPM) 2 04/06/20 08:51 04/06/20 09:44 Temperature Temperature Source Pulse Rate [Right] 93 H 95 H Respiratory Rate 22 20 Blood Pressure [Left Arm] 132/76 152/75 H Blood Pressure Mean [Left Arm] 94 100 Blood Pressure Source [Left Arm] Automatic Cuff Automatic Cuff Blood Pressure Position [Left Arm] Sitting 02 Sat by Pulse Oximetry 93 L 92 L Oxygen Delivery Method Nasal Cannula Nasal Cannula Oxygen Flow Rate (LPM) 2 3 - Lab Data Lab results reviewed: Yes: I reviewed the patient's lab results. Lab Results 04/06/20 07:00: WBC 12.8 H, RBC 4.82, Hgb 15.5, Hct 46.4, MCV 96.4, MCH 32.2 H, MCHC 33.4, RDW 14.3, Plt Count 301, MPV 7.0 L, Neut % (Auto) 73.5, Lymph % (Auto) 18.7, [place] % (Auto) 5.3, Eos % (Auto) 2.1, Baso % (Auto) 0.4, Neut # (Auto) 9.4 H, Lymph # (Auto) 2.4, [place] # (Auto) 0.7, Eos # (Auto) 0.3, Baso # (Auto) 0.1 04/06/20 07:00: Sodium 136, Potassium 4.1, Chloride 96 L, Carbon Dioxide 30, Anion Gap 14.1, BUN 8, Creatinine 0.80, Estimated Creat Clear 130, Estimated GFR 73, Est GFR ( Amer) 89, Glucose 119 H, Calcium 9.4, Total Bilirubin 0.7, AST 34, ALT 34, Alkaline Phosphatase 108, Troponin I < 0.01, C-Reactive Protein 26.3 H, Total Protein 8.3 H, Albumin 4.4, Globulin 3.9 H, Albumin/Globulin Ratio 1.1 04/06/20 07:00: SARS-CoV-2 IgG Ab (Rapid) Negative, SARS-CoV-2 IgM Ab (Rapid) Negative 04/06/20 07:00: ESR 18 04/06/20 07:00: Procalcitonin 0.113 04/06/20 07:16: Specimen Source Right radial, O2 % 1 lpm nc, ABG pH 7.38, ABG pCO2 47.9 H, ABG pO2 57.2 L, ABG HCO3 27.4 H, ABG Total CO2 28.9 H, ABG O2 Saturation 91, ABG Base Excess 2.2, Hardeep Test Acceptable 04/06/20 07:20: Chlamy pneumoniae PCR Not detected, Adenovirus (PCR) Not detected, B. pertussis DNA (PCR) Not detected, Coronavirus OC43 (PCR) Not detected, Coronavirus HKU1 (PCR) Not detected, Coronavirus 229E (PCR) Not detected, SARS-CoV-2 (PCR) Not detected, Coronavirus NL63 (PCR) Not detected, Human Metapneumovir PCR Not detected, Influenza A (H1) PCR Not detected, Influ A (H1N1/09) PCR
[2020-04-06 07:33] LABS: Adenovirus,PCR Not Detected (NotDetected); Bordetella Pertussis Not Detected (NotDetected); Chlamydophila Pneumoniae, PCR Not Detected (NotDetected); Coronavirus 19, PCR Not Detected (NotDetected); Coronavirus 229E Not Detected (NotDetected); Coronavirus NL63 Not Detected (NotDetected); Coronavirus OC43 Not Detected (NotDetected); Coronovirus HKU1,PCR Not Detected (NotDetected); Human Metapneumovirus Not Detected (NotDetected); Influenza A, PCR Not Detected (NotDetected); Influenza AH1, 2009 Not Detected (NotDetected); Influenza AH1, PCR Not Detected (NotDetected); Influenza AH3,PCR Not Detected (NotDetected); Influenza B, PCR Not Detected (NotDetected); Mycoplasma Pneumoniae, PCR Not Detected (NotDetected); Parainfluenza 1, PCR Not Detected (NotDetected); Parainfluenza 2, PCR Not Detected (NotDetected); Parainfluenza 3, PCR Not Detected (NotDetected); Parainfluenza 4, PCR Not Detected (NotDetected); Respiratory Syncytial Virus Not Detected (NotDetected)
[2020-04-06 07:48] LABS: Basophils # 0.1 K/mm3 (0-0.2); Basophils % 0.4 % (0.1-2.0); Eosinophils # 0.3 K/mm3 (0.0-0.4); Eosinophils % 2.1 % (0.1-12.0); Hematocrit 46.4 % (37.0-47.0); Hemoglobin 15.5 g/dL (12.2-16.2); Lymphocytes # 2.4 K/mm3 (0.7-4.5); Lymphocytes % 18.7 % (10-50); Mean Corpuscular HGB Conc 33.4 g/dL (31.8-35.4); Mean Corpuscular Hemoglobin 32.2 pg (27.0-31.2); Mean Corpuscular Volume 96.4 fl (81-99); Monocytes # 0.7 K/mm3 (0.1-1.0); Monocytes % 5.3 % (1.7-9.3); Neutrophils # 9.4 K/mm3 (1.8-7.8); Neutrophils % 73.5 % (37.0-80.0); Platelet Count 301 K/mm3 (142-424); Red Blood Count 4.82 M/mm3 (4.20-5.40); Red Cell Distribution Width 14.3 % (11.5-17.5); White Blood Count 12.8 K/mm3 (4.8-10.8)
[2020-04-06 07:59] LABS: Alanine Aminotransferase 34 U/L (12-78); Albumin Level 4.4 g/dl (3.5-5.0); Albumin/Globulin Ratio 1.1 (1.1-1.8); Alkaline Phosphatase 108 U/L (38-126); Anion Gap 14.1 mEq/L (5-15); Aspartate Amino Transferase 34 U/L (14-36); Bilirubin,Total 0.7 mg/dl (0.2-1.3); Blood Urea Nitrogen 8 mg/dl (7-17); Calcium 9.4 mg/dl (8.4-10.2); Carbon Dioxide 30 mmol/L (22.0-30.0); Chloride 96 mmol/L (98-107); Creatinine Clearance Estimated 130 mL/min (50-200); Estimated Glomerular Filt Rate 73 ml/min (>60); GFR (African American) 89 ML/MIN (>60); Globulin 3.9 g/dL (1.3-3.2); Glucose 119 mg/dl (74-100); Potassium 4.1 mmoL/L (3.5-5.1); Sodium 136 mmol/L (136-145); Total Protein,Serum 8.3 g/dl (6.3-8.2)
[2020-04-06 08:02] LABS: ABG Base Excess 2.2 mmol/L (-2.4-2.3); ABG HCO3 27.4 mmhg (22.0-26.0); ABG Oxygen Saturation 91 % (90-100); ABG PCO2 47.9 mmhg (35.0-45.0); ABG PH 7.38 mmol/L (7.35-7.45); ABG PO2 57.2 mmhg (80-100); ABG TCO2 28.9 mmhg (23-27)
[2020-04-06 08:04] LABS: C-Reactive Protein 26.3 mg/L (0-4)
[2020-04-06 08:05] LABS: Allen's Test Acceptable; Oxygen 1 LPM NC %; Source Right Radial
[2020-04-06 08:19] LABS: Coronavirus 19 IgG Antibody Negative (Negative); Coronavirus 19 IgM Antibody Negative (Negative); Procalcitonin 0.113 ng/mL (0.0-2.0)
[2020-04-06 08:20] LABS: Troponin I < 0.01 ng/ml (0.00-0.034)
[2020-04-06 08:28] LABS: Erythrocyte Sedimentation Rate 18 mm/hr (0-30)
[2020-04-06 08:50] LABS: Rhinovirus/Enterovirus Detected (NotDetected)
[2020-04-06 10:47] LABS: Lactic Acid 1.2 mmol/L (0.7-2.1)
[2020-04-06 10:57] LABS: NT Pro Brain Natriuretic Pep. 68.7 pg/mL (0-125)
[2020-04-06 11:04] LABS: Troponin I < 0.01 ng/ml (0.00-0.034)
[2020-04-06 11:04] LABS: Mycoplasma Pneumo IGM (Rapid) Non-Reactive (Non-Reactiv)
--- NOTE | 2020-04-06 11:04 | PC.NURSE ---
Notified care management of admission
--- NOTE | 2020-04-06 11:08 | PC.NURSE ---
Dr Cohn notified of Lactic results, stated patient was ok to be admitted without severe sepsis. Notified Care management.
--- NOTE | 2020-04-06 12:05 | CA_ITS ---
APPROVED REPORT EXAM: Comprehensive 2D, Doppler, and color-flow Echocardiogram Hide Splitter: REI MATHEWS Ht: 5 ft 5 in Wt: 243lbs BSA: 2.15 BP: 142/88 mmHg Indications: COPD, SOA, CHF, Smoker Echo Enhancing Agent Comments: Technically difficult exam: extra large body habitus with lung impedence 2D Dimensions LVOT 2.04 cm (M/F) 1.5-2.5 M-Mode Dimensions LA Diam 3.67 cm (1.9-4.0) LVDd 4.95 cm (3.5-5.7) Ao Diam 2.90 cm (2.0-3.7) LVDs 2.98 cm (3.5-5.7) PWd 1.00 cm (0.6-1.1) EF (Teich) 70.20% EPSs 0.81 cm FS 39.80% EDV (Teich) 115.50 mL ESV (Teich) 34.40 mL LV Diastology E Decel Time 200.00 (160-240 msec) E/A Ratio 1.00 MED E' 8.00 (< 7 cm/sec) MED A' 9.70 cm/s E'/MED E' Ratio 13.05 (>14) LAT E' 8.60 (<10 cm/sec) LAT A' 11.50 cm/s E/LAT E' Ratio 12.14 (>14) Aortic Valve AoV Peak Gabino. 143.00 (50-130 cm/s) AO Peak GR. 8.20 mmHg AO Mean GR. 4.80 (<5 mmHg) AO VTI 30.42 (18-25 cm) Mitral Valve MV E Max Gabino. 104.00 (40-130 cm/s) MV A Velocity 104.00 (40-130 cm/s) E/A Ratio 1.00 MV Decel. Time 200.00 (160-240 ms) MV PHT 59.00 ms Left Ventricle Technically difficult study because of the patient fact in poor acoustic windows, a repeat study with Definity contrast is recommended. Left atrium is mildly enlarged, left ventricle is normal size, mild concentric left ventricular hypertrophy visually estimated ejection fraction probably between 45 to 50%, segmental wall motion abnormalities cannot be excluded. Grade 1 diastolic dysfunction seen without tissue Doppler evidence of raise left atrial pressure. Right Ventricle Right atrium and right ventricle are mildly enlarged with normal contractility. Aortic Valve Aortic valve is minimally thickened and fibrosed, there is no aortic stenosis or aortic insufficiency. Mitral Valve Mitral valve is grossly normal, there is mild mitral regurgitation. Tricuspid Valve Tricuspid valve is grossly normal, there is mild tricuspid regurgitation, tricuspid regurgitation jet velocity is inadequate for calculation of the right ventricular systolic pressure. Pulmonic Valve Pulmonic valve is poorly visualized. Great Vessels Aortic root is normal size. Pericardium No significant pericardial effusion noted. Conclusion 1. Technically difficult study because of the patient factors and poor acoustic windows. Repeat study with Definity contrast is recommended. 2. Mildly biatrial enlargement, normal left ventricular size, mild concentric left ventricular hypertrophy, visually estimated ejection fraction between 45 to 50%, segmental wall motion abnormality cannot be excluded, grade 1 diastolic dysfunction seen without tissue Doppler evidence of raise left atrial pressure. 3. Mildly enlarged right ventricle with normal contractility. 4. Mild mitral and tricuspid regurgitation. 5. No significant pericardial effusion noted. Electronically signed by : Dennis Grant, 04/07/2020 05:57:00
--- NOTE | 2020-04-06 12:15 | PC.NURSE ---
Contacted House to see when bed would be available. Stated it should be shortly.
--- NOTE | 2020-04-06 12:18 | P.CONPHA_ITS ---
[facility] Pharmacy VTE Monitoring - Patient Demographics Admission date: 04/06/20 Report Date: 04/06/20 Time: 12:18 Allergies/Adverse Reactions: Patient Allergies cephalexin [From KEFLEX] Allergy (Mild, Verified 06/10/18 14:30) Penicillins Allergy (Mild, Verified 06/10/18 14:22) Height: 1.65 m Weight: 110.223 kg Patient Problems: Current Active Problems Personal history of nicotine dependence (Chronic) Acute exacerbation of chronic obstructive airways disease (Acute) Obesity (Acute) Viral pneumonitis (Acute) Respiratory failure with hypercapnia (Acute) Severe sepsis with acute organ dysfunction (Acute) - VTE Risk Labs: VTE Related Lab Results Hgb 15.5 g/dL (12.2-16.2) 04/06/20 07:00 Hct 46.4 % (37.0-47.0) 04/06/20 07:00 Plt Count 301 K/mm3 (142-424) 04/06/20 07:00 BUN 8 mg/dl (7-17) 04/06/20 07:00 Creatinine 0.80 mg/dl (0.52-1.04) 04/06/20 07:00 Estimated Creat Clear 130 mL/min (50-200) 04/06/20 07:00 - Prophylaxis VTE Prophylaxis Ordered?: Yes Types of VTE Prophylaxis: TEDS Knee High Location of Applied Device: Bilateral Lower Extremeties
--- NOTE | 2020-04-06 13:00 | PC.NURSE ---
Contacted 2nd floor to let them know patient was ready
--- NOTE | 2020-04-06 13:12 | PC.NURSE ---
patient has arrived to floor
[2020-04-06 14:11] LABS: Troponin I < 0.01 ng/ml (0.00-0.034)
--- NOTE | 2020-04-06 14:53 | HMH.PHAINT ---
MEDICATION RECONCILIATION COMPLETED ON PATIENT USING EXTERNAL FILL HISTORY FROM PHARMACY AND LIST FROM MD OFFICE. -BISI MICHAELD
--- NOTE | 2020-04-06 17:22 | HMH.HP ---
*Admission Date: 04/06/20 *Chief complaint: Cough/dyspnea *History of present illness: 59-year-old white female with history of asthma, does not use oxygen at home, does have nebulizer treatments at home but rarely uses them, who over the past couple of days become progressively more dyspneic, minimal chills, some other viral symptoms like nasal drainage. Came to the emergency department, leukocytosis was noted, relative hypoxia with oxygen requirement was noted-new for her, chest x-ray with patchy perihilar infiltrates. Coated testing was negative but PCR panel showed evidence of rhinitis/enterovirus-consistent with her clinical presentation of viral pneumonia and she was admitted to hospital for supportive care. [facility] History I have reviewed the patient's past medical history: Yes Medical History: Reports:: Chronic Obstructive Pulmonary Disease (COPD), Hyperlipidemia Denies:: Cancer, Diabetes Mellitus Type 1, Diabetes Mellitus Type 2, MRSA *Have you ever received a pneumonia vaccine?: Yes *Have you received a flu vaccine this season?: Yes Other Medical History: Reports: Hypothyroidism, Liver Disease, Thyroid Disease Laterality Cases: Bilateral: Carpal Tunnel Release, Other Other Surgeries: Yes: Colonoscopy, Dilation and Curettage, EGD, Tubal Ligation, Other Amputation: No Fractures: No - *Social History Last grade of school completed: High school graduate Smoking Status: Current every day smoker Tobacco Type: cigarettes # Packs/Day (cigarettes): 1 Alcohol Intake: never *Occupational Status:: disabled Housing: house Household Members: other *Travel in the last 8 weeks: None Family Hx:: No significant family history Review of Systems - Review of Systems Review of systems:: pertinent systems reviewed and negative unless documented below - *Respiratory Reports change in phlegm color, Reports shortness of breath, Reports shortness of breath with activity, Reports excessive phlegm production - *Neurologic Denies headache(s) Meds Home Medications Medication Instructions Recorded Confirmed Type Atorvastatin Calcium [Lipitor 80mg 80 mg PO HS 06/10/18 04/06/20 History Tab] Pantoprazole Sodium [Protonix 40mg 40 mg PO HS 06/10/18 04/06/20 History tablet] Citalopram Hydrobromide [Celexa] 40 mg PO HS 06/11/18 04/06/20 History Acyclovir [Zovirax 400mg tablet] 400 mg PO DAILY 04/19/19 04/06/20 History Fluticasone Propion/Salmeterol 1 puff IH BID 04/19/19 04/06/20 History [Wixela 250-50 Inhub] Umeclidinium [place] [Incruse 1 puff IH DAILY 04/19/19 04/06/20 History Ellipta] Albuterol Sulfate [Albuterol 2 puffs IH Q6HP PRN 04/06/20 04/06/20 History Sulfate Hfa] Buspirone HCl [Buspar 10mg 10 mg PO BID 04/06/20 04/06/20 History tablet] Levothyroxine Sodium 200 mcg PO DAILY 04/06/20 04/06/20 History [Levothyroxine 200mcg (0.2mg) Tab] Montelukast Sodium [Singulair 10mg 10 mg PO PM 04/06/20 04/06/20 History tablet] Allergies Allergy/AdvReac Type Severity Reaction Status Date / Time cephalexin [From Kionix] Allergy Mild Verified 06/10/18 14:30 Penicillins Allergy Mild Verified 06/10/18 14:22 Exam Vital signs and Labs for Last 24 Hours: Temp Pulse Resp BP Pulse Ox 98.6 F 85 17 148/83 H 93 L 04/06/20 13:25 04/06/20 14:40 04/06/20 13:25 04/06/20 13:25 04/06/20 14:40 Laboratory Results - last 24 hr 04/06/20 07:00: WBC 12.8 H, RBC 4.82, Hgb 15.5, Hct 46.4, MCV 96.4, MCH 32.2 H, MCHC 33.4, RDW 14.3, Plt Count 301, MPV 7.0 L, Neut % (Auto) 73.5, Lymph % (Auto) 18.7, [place] % (Auto) 5.3, Eos % (Auto) 2.1, Baso % (Auto) 0.4, Neut # (Auto) 9.4 H, Lymph # (Auto) 2.4, [place] # (Auto) 0.7, Eos # (Auto) 0.3, Baso # (Auto) 0.1 04/06/20 07:00: Sodium 136, Potassium 4.1, Chloride 96 L, Carbon Dioxide 30, Anion Gap 14.1, BUN 8, Creatinine 0.80, Estimated Creat Clear 130, Estimated GFR 73, Est GFR ( Amer) 89, Glucose 119 H, Calcium 9.4, Total Bilirubin 0.7, AST 34, ALT 34, Alkaline Ph
--- NOTE | 2020-04-06 17:25 | PC.NURSE ---
since arrival to floor patient has done well. no complaints. on 2l nasal cannula. rings out as needed. vitals stable. lungs noted to have some ronchi through out.
[2020-04-07] VITALS (9 sets, daily range): BP systolic 123–148; BP diastolic 60–79; PULSE 80–107; RESP 17–24; TEMP 36.4–36.8; O2SAT 90–92; BMI 40.0
--- NOTE | 2020-04-07 05:08 | PC.NURSE ---
pt has rested on and off t/o shift, has been tearful at times talking about family, expiratory wheezing heard on right, remains on 2L NC with O2 sat of 91%, respiration rate 19-24, no complaints of SOA or chest pain, HR 80-87
[2020-04-07 07:10] LABS: Basophils # 0.1 K/mm3 (0-0.2); Basophils % 0.3 % (0.1-2.0); Hematocrit 46.9 % (37.0-47.0); Hemoglobin 15.3 g/dL (12.2-16.2); Lymphocytes # 1.5 K/mm3 (0.7-4.5); Lymphocytes % 9.6 % (10-50); Mean Corpuscular HGB Conc 32.7 g/dL (31.8-35.4); Mean Corpuscular Volume 97.9 fl (81-99); Mean Platelet Volume 7.1 fl (7.4-10.4); Monocytes # 0.5 K/mm3 (0.1-1.0); Monocytes % 3.2 % (1.7-9.3); Neutrophils # 13.5 K/mm3 (1.8-7.8); Neutrophils % 86.8 % (37.0-80.0); Platelet Count 303 K/mm3 (142-424); Red Blood Count 4.79 M/mm3 (4.20-5.40); Red Cell Distribution Width 14.3 % (11.5-17.5); White Blood Count 15.6 K/mm3 (4.8-10.8)
[2020-04-07 07:16] LABS: MANUAL DIFFERENTIAL MANUAL DIFFERENTIAL (MANUAL DIFF)
[2020-04-07 07:26] LABS: Blood Urea Nitrogen 12 mg/dl (7-17); Calcium 9.4 mg/dl (8.4-10.2); Carbon Dioxide 30 mmol/L (22.0-30.0); Chloride 98 mmol/L (98-107); Creatinine Clearance Estimated 74 mL/min (50-200); Estimated Glomerular Filt Rate 85 ml/min (>60); GFR (African American) 103 ML/MIN (>60); Glucose 181 mg/dl (74-100); Magnesium 2.2 mg/dl (1.6-2.3); Sodium 134 mmol/L (136-145)
--- NOTE | 2020-04-07 08:18 | HMH.ACPN2 ---
Internal Medicine - PN: Subj *Date: 04/07/20 *Time: 08:18 Interval history: Ms. recio doing well this morning. Continues to complain of feeling fatigued and short of breath. Had a breathing treatment this morning but still feels quite tight. Tolerating breakfast, ambulating independently but dyspneic with exertion. Afebrile overnight. No nausea, vomiting, chest pain, diarrhea. Exam Vital signs and Labs for Last 24 Hours: Temp Pulse Resp BP Pulse Ox 97.8 F 96 H 24 123/60 91 L 04/07/20 04:00 04/07/20 06:07 04/07/20 04:00 04/07/20 04:00 04/07/20 06:07 Laboratory Results - last 24 hr 04/06/20 07:00: Troponin I < 0.01 04/06/20 07:00: SARS-CoV-2 IgG Ab (Rapid) Negative, SARS-CoV-2 IgM Ab (Rapid) Negative 04/06/20 07:00: ESR 18 04/06/20 07:00: Procalcitonin 0.113 04/06/20 07:00: Mycoplasma pneumon IgM Non-reactive 04/06/20 07:20: Chlamy pneumoniae PCR Not detected, Adenovirus (PCR) Not detected, B. pertussis DNA (PCR) Not detected, Coronavirus OC43 (PCR) Not detected, Coronavirus HKU1 (PCR) Not detected, Coronavirus 229E (PCR) Not detected, SARS-CoV-2 (PCR) Not detected, Coronavirus NL63 (PCR) Not detected, Human Metapneumovir PCR Not detected, Influenza A (H1) PCR Not detected, Influ A (H1N1/09) PCR Not detected, Influenza A (H3) PCR Not detected, Influenza Type A (PCR) Not detected, Influenza Type B (PCR) Not detected, M. pneumoniae (PCR) Not detected, Parainfluenza 1 (PCR) Not detected, Parainfluenza 2 (PCR) Not detected, Parainfluenza 3 (PCR) Not detected, Parainfluenza 4 (PCR) Not detected, RSV (PCR) Not detected, Entero/Rhino (PCR) Detected A 04/06/20 10:30: Troponin I < 0.01 04/06/20 10:30: NT-Pro-B Natriuret Pep 68.7 04/06/20 10:30: Lactate 1.2 04/06/20 13:30: Troponin I < 0.01 04/07/20 06:47: WBC 15.6 H, RBC 4.79, Hgb 15.3, Hct 46.9, MCV 97.9, MCH 32.0 H, MCHC 32.7, RDW 14.3, Plt Count 303, MPV 7.1 L, Neut % (Auto) 86.8 H, Lymph % (Auto) 9.6 L, Toole % (Auto) 3.2, Eos % (Auto) 0.0 L, Baso % (Auto) 0.3, Neut # (Auto) 13.5 H, Lymph # (Auto) 1.5, Toole # (Auto) 0.5, Eos # (Auto) 0.0, Baso # (Auto) 0.1 04/07/20 06:47: Sodium 134 L, Potassium 5.0 D, Chloride 98, Carbon Dioxide 30, Anion Gap 11.0, BUN 12 D, Creatinine 0.70, Estimated Creat Clear 74, Estimated GFR 85, Est GFR ( Amer) 103, Glucose 181 H D, Calcium 9.4, Magnesium 2.2 I & O for Last 24 hours: Intake & Output 04/04/20 04/05/20 04/06/20 04/07/20 23:59 23:59 23:59 23:59 Intake Total 1540 / 1660 907 / 907 Output Total 700 / 700 Balance 1540 / 1660 207 / 207 Weight 107.728 kg 109.032 kg - Constitutional mild distress, morbidly obese - *Routine HEENT Exam Head: Present: normocephalic Eye: Present: EOMI, PERRL ENT: Present: mucous membranes moist - *Routine Neck Exam Present: supple. Absent: lymphadenopathy - *Routine Respiratory Exam Present: prolonged expiratory phase, wheezes, diminished air movement. Absent: crackles - *Routine Cardiovascular Exam Present: RRR - *Routine Abdominal Exam Present: soft, normoactive bowel sounds. Absent: tenderness - *Routine Extremities Exam Absent: cyanosis, clubbing, edema - *Routine Skin Exam Present: warm. Absent: rash - *Routine Neurological Exam Present: alert, oriented X3 Assessment and Plan (1) Acute exacerbation of chronic obstructive airways disease Status: Acute Category: Medical Code(s): J44.1 - Chronic obstructive pulmonary disease with (acute) exacerbation (2) Obesity Status: Acute Qualifiers: Obesity type: due to excess calories Obesity classification: adult class 3 (BMI >= 40) Serious obesity comorbidity presence: with serious comorbidity Body mass index: BMI 40.0-44.9 Qualified Code(s): E66.01 - Morbid (severe) obesity due to excess calories; Z68.41 - Body mass index [BMI]40.0-44.9, adult Category: Medical Code(s): E66.9 - Obesity, unspecified Complicates all aspects of her care (3) Viral pneumonitis Status: Acute Category:
[2020-04-07 08:32] LABS: Eosinophils % 1 % (0-3); Lymphocytes % 10 % (10-50); Monocytes % 3 % (2-9); Neutrophils % 84 % (42-76); Platelet Estimate Normal; RBC Morphology Normal; Total Cells Counted 100
--- NOTE | 2020-04-07 19:59 | PC.NURSE ---
patient has done well this shift. patient is independent in room, lung arauz are not as tight as this morning. has had no complaints. appetite is good. vitals have been stable.
[2020-04-08 00:16] VITALS: PULSE 91
[2020-04-08 04:00] VITALS: BP 137/78; PULSE 56; RESP 18; TEMP 36.6; O2SAT 91
[2020-04-08 06:00] VITALS: BMI 40.0
[2020-04-08 06:08] VITALS: PULSE 82; PULSE 85; O2SAT 91
--- NOTE | 2020-04-08 06:24 | PC.NURSE ---
Pt is A&Ox4. Pt remains in droplet precautions for positive entero rhinovirus. Expiratory wheezing heard t/o all lung arauz per auscultation. Dry, non productive cough noted. Active bowel sounds in all 4 quads. No BM noted this shift. No other acute changes or complaints at this time.
[2020-04-08 07:36] LABS: Basophils # 0.1 K/mm3 (0-0.2); Basophils % 0.4 % (0.1-2.0); Eosinophils % 0.1 % (0.1-12.0); Hematocrit 47.3 % (37.0-47.0); Hemoglobin 14.8 g/dL (12.2-16.2); Lymphocytes # 1.9 K/mm3 (0.7-4.5); Lymphocytes % 10.1 % (10-50); Mean Corpuscular HGB Conc 31.3 g/dL (31.8-35.4); Mean Corpuscular Hemoglobin 30.9 pg (27.0-31.2); Mean Corpuscular Volume 98.6 fl (81-99); Mean Platelet Volume 7.3 fl (7.4-10.4); Monocytes # 0.9 K/mm3 (0.1-1.0); Monocytes % 4.9 % (1.7-9.3); Neutrophils # 15.6 K/mm3 (1.8-7.8); Neutrophils % 84.6 % (37.0-80.0); Platelet Count 324 K/mm3 (142-424); Red Blood Count 4.79 M/mm3 (4.20-5.40); Red Cell Distribution Width 14.4 % (11.5-17.5); White Blood Count 18.5 K/mm3 (4.8-10.8)
[2020-04-08 07:44] LABS: Anion Gap 11.5 mEq/L (5-15); Blood Urea Nitrogen 13 mg/dl (7-17); Carbon Dioxide 31 mmol/L (22.0-30.0); Chloride 95 mmol/L (98-107); Creatinine Clearance Estimated 74 mL/min (50-200); Estimated Glomerular Filt Rate 85 ml/min (>60); GFR (African American) 103 ML/MIN (>60); Glucose 141 mg/dl (74-100); Potassium 4.5 mmoL/L (3.5-5.1); Sodium 133 mmol/L (136-145)
[2020-04-08 07:57] LABS: MANUAL DIFFERENTIAL MANUAL DIFFERENTIAL (MANUAL DIFF)
[2020-04-08 08:00] VITALS: BP 145/76; PULSE 94; RESP 19; TEMP 36.9; O2SAT 88
--- NOTE | 2020-04-08 08:04 | HMH.DCSUM ---
General - General Admission date:: 04/06/20 Discharge date: 04/08/20 HPI HPI: 59-year-old white female with history of asthma, does not use oxygen at home, does have nebulizer treatments at home but rarely uses them, who over the past couple of days become progressively more dyspneic, minimal chills, some other viral symptoms like nasal drainage. Came to the emergency department, leukocytosis was noted, relative hypoxia with oxygen requirement was noted-new for her, chest x-ray with patchy perihilar infiltrates. Coated testing was negative but PCR panel showed evidence of rhinitis/enterovirus-consistent with her clinical presentation of viral pneumonia and she was admitted to hospital for supportive care. Hospital Course Hospital Course: Patient was admitted, placed on intravenous fluids, steroids and covered with azithromycin for atypical pathogens although the diagnosis of rhinovirus/enterovirus pneumonia was made. Patient improved slowly but in a stepwise fashion. Gram-positive diplococci were seen on her sputum Gram stain, culture pending this morning. This morning she is better, less wheezing, able to do her daily/self-care activities. She does have an oxygen requirement, with room air saturation of 88%. Plan will be to discharge home on 2 L nasal cannula. I will cover the possible pneumococcal pneumonia with cefdinir and azithromycin and we will send home on steroids. Refill her nebulizers, close follow-up in our office in 2 days. Objective Vital signs: Temp Pulse Resp BP Pulse Ox 97.8 F 85 18 137/78 91 L 04/08/20 04:00 04/08/20 06:08 04/08/20 04:00 04/08/20 04:00 04/08/20 06:08 no acute distress, morbidly obese - *Routine HEENT Exam Head: Present: normocephalic Eye: Present: EOMI, PERRL ENT: Present: mucous membranes moist - *Routine Neck Exam Present: supple - *Routine Respiratory Exam Present: wheezes (Minimal expiratory wheezes but much better than admission) - *Routine Cardiovascular Exam Present: RRR - *Routine Abdominal Exam Present: soft, normoactive bowel sounds. Absent: tenderness - *Routine Extremities Exam Absent: cyanosis, clubbing, edema - *Routine Skin Exam Present: warm. Absent: rash - Detailed Eye Exam Eyelids: Bilateral normal inspection Results Labs on day of discharge: Labs from last 24 hours 04/08/20 04/08/20 04/07/20 07:18 07:18 06:47 WBC 18.5 H RBC 4.79 Hgb 14.8 Hct 47.3 H MCV 98.6 MCH 30.9 MCHC 31.3 L RDW 14.4 Plt Count 324 MPV 7.3 L Neut % (Auto) 84.6 H Lymph % (Auto) 10.1 Hamilton % (Auto) 4.9 Eos % (Auto) 0.1 Baso % (Auto) 0.4 Neut # (Auto) 15.6 H Lymph # (Auto) 1.9 Hamilton # (Auto) 0.9 Eos # (Auto) 0.0 Baso # (Auto) 0.1 Total Counted 100 Neutrophils % (Manual) 84 H Band Neutrophils % 2.0 Lymphocytes % (Manual) 10 Monocytes % (Manual) 3 Eosinophils % (Manual) 1 Platelet Estimate Normal RBC Morphology Normal Sodium 133 L Potassium 4.5 Chloride 95 L Carbon Dioxide 31 H Anion Gap 11.5 BUN 13 Creatinine 0.70 Estimated Creat Clear 74 Estimated GFR 85 Est GFR ( Amer) 103 Glucose 141 H Calcium 9.0 DS: Diagnosis - Discharge Diagnosis (1) Acute exacerbation of chronic obstructive airways disease Status: Acute (2) Obesity Status: Chronic (3) Viral pneumonitis Status: Acute (4) Hypothyroid Status: Chronic Discharge Plan - Patient Discharge Instructions ACTIVITY: Continue current activity DIET: continue same diet - Follow up Plan Follow up with: Aubrie Ramírez APRN [Nurse Practitioner] - 04/10/20 Disposition: Home, Self-Alf Medications: Home Medications Medication Instructions Recorded Confirmed Type Atorvastatin Calcium [Lipitor 80mg 80 mg PO HS 06/10/18 04/06/20 History Tab] Pantoprazole Sodium [Protonix 40mg 40 mg PO HS 06/10/18
[2020-04-08 09:08] LABS: Lymphocytes % 9 % (10-50); Monocytes % 8 % (2-9); Neutrophils % 83 % (42-76); Total Cells Counted 100
[2020-04-08 09:09] LABS: Platelet Estimate Normal; RBC Morphology Normal
--- NOTE | 2020-04-08 09:09 | SW/DCPLANNER ---
PATIENT IS DISCHARGING HOME TODAY AND HAS A NEED FOR HOME 02... A PORTABLE TANK WILL BE DELIVERED TO HER ROOM PRIOR TO HER DISCHARGING HOME.. PATIENT CHOSE [facility] TO DELIVER THIS ...
== END 2020-04-08 10:45 | disposition home or self-care (01) ==
LOC: ER 10:03 → 2ND 14:16
PROVIDERS: Internal Medicine Adolescent Medicine; Admitting Provider Internal Medicine Adolescent Medicine; Emergency Provider Emergency Medicine; PCP Internal Medicine Adolescent Medicine; Visit Provider Internal Medicine Adolescent Medicine
DX: J44.1 Chronic obstructive pulmonary disease with (acute) exacerbation (principal); J96.01 Acute respiratory failure with hypoxia; B97.89 Other viral agents as the cause of diseases classified elsewhere; J12.89 Other viral pneumonia; E78.5 Hyperlipidemia, unspecified; E03.9 Hypothyroidism, unspecified; Z88.0 Allergy status to penicillin; Z88.8 Allergy status to other drugs, medicaments and biological substances; E66.01 Morbid (severe) obesity due to excess calories; Z68.41 Body mass index [BMI] 40.0-44.9, adult; Z79.51 Long term (current) use of inhaled steroids; Z79.899 Other long term (current) drug therapy; R07.9 Chest pain, unspecified; R06.9 Unspecified abnormalities of breathing
CPT/HCPCS: 36415; 71046; 80048; 80053; 82803; 83605; 83735; 83880; 84145; 84484; 85007; 85025; 85651; 86140; 86328; 86738; 87070; 87205; 87581; 87633; 87798; 93005; 93306; 94640; 96365; 96366; 96375; 99284; G0378; J0456; U0003

== ENCOUNTER → 2020-05-18 13:08 | Outpatient (CLI) | payer MEDICARE, BC, SELFPAY ==
--- NOTE | 2020-05-18 13:11 | CT_ITS ---
PROCEDURE: CT CHEST WO CON CLINICAL INDICATION: Tobacco abuse, mucopurulent chronic bronchitis Current smoker, Copd, Soa always, productive couch Prior cta chest 04/19/19 COMPARISON: CT CT ANGIO CHEST from 04/19/2019 TECHNIQUE: Axial images obtained with sagittal and coronal reformats. All CT scans at the facility use one or more dose reduction, viz: automated exposure control, ma/kV adjustment per patient size (including targeted exams where dose is matched to indication, i.e. head), or iterative reconstruction technique. FINDINGS: There are scattered small mediastinal lymph nodes which do not appear significantly changed.. No mediastinal or hilar mass or adenopathy. There are centrilobular emphysematous changes with COPD and scattered areas of scarring. There are few scattered small bilateral pulmonary opacities which are not significantly changed. Largest nodular opacities in the right upper lobe at 4 mm. There is some scarring in the right upper lobe posteriorly minimal nodularity is present in the right lower lobe posteriorly and medially and may be due to an area of scarring in the subpleural region image 43,44 and 45. No effusions or infiltrates. No central obstructing lesions. There is some nodularity involving the bronchus intermedius posteriorly on the right and could be due to some posterior layering mucus. This is seen on image 38 series 3 and measures approximately 3 mm. Minimal ground-glass attenuation is noted in the right lower lobe posteriorly and medially in the subpleural region. There is some stranding mucus in the left mainstem bronchus distally. There is a 4 mm noncalcified nodule in the superior segment of the right lower lobe not readily apparent on the previous exam. Image 34 series 3 Upper abdominal images show mild enlargement of the adrenal glands not significantly changed consistent with adenomatous involvement. No acute bony findings. IMPRESSION: 1. Centrilobular emphysema with COPD and scattered areas of scarring with stable small bilateral subpleural and parenchymal opacities which are mostly stable. A 4 mm nodules present in the superior segment of the right lower lobe not previously identified. Stability may be confirmed with follow-up 2. Small nodular opacity along the posterior aspect of the bronchus intermedius which could be due to some posterior layering mucus. Some stranding mucous is also noted in the left mainstem bronchus distally 3. Minimal ground-glass attenuation in the right lower lobe posteriorly Dictated by: Hardeep Norton MD 05/19/2020 11:48 Hardeep Norton MD in [place] 05/19/2020 11:48
== END ==
PROVIDERS: PCP Internal Medicine Adolescent Medicine; Visit Provider Nurse Practitioner Family
DX: J41.1 Mucopurulent chronic bronchitis (principal); Z72.0 Tobacco use
CPT/HCPCS: 71250

== ENCOUNTER → 2020-06-12 09:50 | Outpatient (CLI) | payer MEDICARE, BC, SELFPAY ==
[2020-06-12 14:06] LABS: Anion Gap 10.5 mEq/L (5-15); Blood Urea Nitrogen 9 mg/dl (7-17); Carbon Dioxide 31 mmol/L (22.0-30.0); Chloride 99 mmol/L (98-107); Estimated Glomerular Filt Rate 85 ml/min (>60); GFR (African American) 103 ML/MIN (>60); Glucose 90 mg/dl (74-100); Potassium 4.5 mmoL/L (3.5-5.1); Sodium 136 mmol/L (136-145)
[2020-06-12 14:14] LABS: Basophils # 0.1 K/mm3 (0-0.2); Basophils % 0.6 % (0.1-2.0); Eosinophils # 0.3 K/mm3 (0.0-0.4); Eosinophils % 3.1 % (0.1-12.0); Hematocrit 43.1 % (37.0-47.0); Hemoglobin 13.1 g/dL (12.2-16.2); Lymphocytes # 2.5 K/mm3 (0.7-4.5); Lymphocytes % 23.9 % (10-50); Mean Corpuscular HGB Conc 30.5 g/dL (31.8-35.4); Mean Corpuscular Hemoglobin 29.3 pg (27.0-31.2); Mean Corpuscular Volume 96.1 fl (81-99); Mean Platelet Volume 7.2 fl (7.4-10.4); Monocytes # 0.5 K/mm3 (0.1-1.0); Neutrophils % 67.4 % (37.0-80.0); Platelet Count 314 K/mm3 (142-424); Red Blood Count 4.48 M/mm3 (4.20-5.40); Red Cell Distribution Width 13.2 % (11.5-17.5); White Blood Count 10.4 K/mm3 (4.8-10.8)
[2020-06-12 14:35] LABS: Coronavirus 19 IgG Antibody Negative (Negative); Coronavirus 19 IgM Antibody Negative (Negative)
== END ==
PROVIDERS: Visit Provider Urology
DX: E66.01 Morbid (severe) obesity due to excess calories (principal); I42.9 Cardiomyopathy, unspecified; J44.9 Chronic obstructive pulmonary disease, unspecified; R06.00 Dyspnea, unspecified; R42 Dizziness and giddiness; Z68.41 Body mass index [BMI] 40.0-44.9, adult; Z82.49 Family history of ischemic heart disease and other diseases of the circulatory system; Z01.818 Encounter for other preprocedural examination; Z20.822 Contact with and (suspected) exposure to COVID-19
CPT/HCPCS: 36415; 80048; 85025; 86328

== ENCOUNTER 2020-06-15 07:47 | Day surgery (SDC) | payer MEDICARE, BC, SELFPAY ==
[2020-06-15] VITALS (11 sets, daily range): BP systolic 115–140; BP diastolic 58–80; PULSE 82–96; RESP 12–20; O2SAT 91–98; BMI 41.9
--- NOTE | 2020-06-15 07:03 | IR_ITS ---
APPROVED REPORT [facility] Manager: RADHA Hernandez RT (R) PROCEDURES Left heart catheterization Left ventriculogram Selective coronary angiogram INDICATION Angina pectoris, Abnormal echocardiogram with reduced ejection fraction Informed consent was obtained prior to the procedure. COMPLICATIONS None Estimated Blood Loss: Less than 10mls TECHNIQUE One percent lidocaine used to anesthetize the right anterior aspect of the wrist. The right radial artery was accessed via the Seldinger technique. A 6 Spanish sheath was placed in the right radial artery. 2.5 mg of verapamil, 800 mcg of nitroglycerin, 1mg Lidocaine and 5000 U Heparin were given through the arterial sheath. The trap catheter was also used to perform left heart catheterization, left ventriculogram and selective coronary angiogram. At the end of the procedure the sheath was removed good hemostasis was achieved using Traclet band, patient was transferred to the postop holding area in stable condition. ANGIOGRAPHIC RESULTS The left main artery Normal The left anterior descending artery Normal The circumflex artery Normal The right coronary artery Dominant normal The JOHN ventriculogram reveals Normal 65% The left ventricular end-diastolic pressure 22 mmHg IMPRESSION Normal coronary arteries Normal ejection fraction by LV gram Moderately elevated LVEDP consistent with diastolic dysfunction PLAN 1. Medical management Electronically signed by : Hernan Espitia, 06/15/2020 10:36:25
== END 2020-06-15 13:25 | disposition home or self-care (01) ==
LOC: CATHLAB 07:49
PROVIDERS: PCP Internal Medicine Adolescent Medicine; Visit Provider Internal Medicine
DX: E66.01 Morbid (severe) obesity due to excess calories (principal); I42.9 Cardiomyopathy, unspecified; J44.9 Chronic obstructive pulmonary disease, unspecified; R06.00 Dyspnea, unspecified; R42 Dizziness and giddiness; R93.1 Abnormal findings on diagnostic imaging of heart and coronary circulation; Z82.49 Family history of ischemic heart disease and other diseases of the circulatory system; Z79.51 Long term (current) use of inhaled steroids; Z79.899 Other long term (current) drug therapy; Z72.0 Tobacco use
CPT/HCPCS: 93458; 99152; C1725; C1769; J1644; Q9967

== ENCOUNTER → 2020-07-15 09:55 | Outpatient (CLI) | payer MEDICARE, BC, SELFPAY | PROVIDERS: PCP Internal Medicine Adolescent Medicine; Visit Provider Internal Medicine Pulmonary Disease | DX: R06.00 Dyspnea, unspecified (principal) | CPT/HCPCS: 94060; 94618; 94726; 94729 ==

== ENCOUNTER → 2020-07-24 11:31 | Outpatient (CLI) | payer MEDICARE, BC, SELFPAY ==
[2020-07-24 12:26] LABS: Chloride 90 mmol/L (98-107)
[2020-07-24 12:27] LABS: Sodium 129 mmol/L (136-145)
[2020-07-24 12:29] LABS: Blood Urea Nitrogen 8 mg/dl (7-17); Estimated Glomerular Filt Rate 85 ml/min (>60); GFR (African American) 103 ML/MIN (>60)
[2020-07-24 12:30] LABS: Calcium 9.4 mg/dl (8.4-10.2); Carbon Dioxide 28 mmol/L (22.0-30.0); Glucose 126 mg/dl (74-100)
== END ==
PROVIDERS: Visit Provider Physician Assistant
DX: E66.01 Morbid (severe) obesity due to excess calories (principal); I42.9 Cardiomyopathy, unspecified; J44.9 Chronic obstructive pulmonary disease, unspecified; R06.00 Dyspnea, unspecified; R93.1 Abnormal findings on diagnostic imaging of heart and coronary circulation; R94.30 Abnormal result of cardiovascular function study, unspecified; Z82.49 Family history of ischemic heart disease and other diseases of the circulatory system; Z68.41 Body mass index [BMI] 40.0-44.9, adult
CPT/HCPCS: 36415; 80048

== ENCOUNTER → 2020-08-06 10:20 | Outpatient (CLI) | payer MEDICARE, BC, SELFPAY ==
[2020-08-06 11:02] LABS: Chloride 92 mmol/L (98-107); Sodium 131 mmol/L (136-145)
[2020-08-06 11:04] LABS: Blood Urea Nitrogen 6 mg/dl (7-17); Estimated Glomerular Filt Rate 85 ml/min (>60); GFR (African American) 103 ML/MIN (>60)
[2020-08-06 11:05] LABS: Calcium 9.6 mg/dl (8.4-10.2); Carbon Dioxide 31 mmol/L (22.0-30.0); Glucose 135 mg/dl (74-100)
== END ==
PROVIDERS: Nurse Practitioner Family; Visit Provider Physician Assistant
DX: I10 Essential (primary) hypertension (principal); J44.9 Chronic obstructive pulmonary disease, unspecified
CPT/HCPCS: 36415; 80048

== ENCOUNTER → 2021-03-05 15:50 | Outpatient (CLI) | payer MEDICARE, BC, SELFPAY ==
[2021-03-05 16:30] LABS: Chloride 92 mmol/L (98-107)
[2021-03-05 16:31] LABS: Potassium 3.9 mmoL/L (3.5-5.1); Sodium 135 mmol/L (136-145)
[2021-03-05 16:33] LABS: Alanine Aminotransferase 54 U/L (12-78); Alkaline Phosphatase 107 U/L (38-126); Anion Gap 11.9 mEq/L (5-15); Aspartate Amino Transferase 58 U/L (14-36); Bilirubin,Total 0.4 mg/dl (0.2-1.3); Blood Urea Nitrogen 8 mg/dl (7-17); Carbon Dioxide 35 mmol/L (22.0-30.0); Estimated Glomerular Filt Rate 85 ml/min (>60); GFR (African American) 103 ML/MIN (>60)
[2021-03-05 16:34] LABS: Albumin Level 4.2 g/dl (3.5-5.0); Albumin/Globulin Ratio 1.4 (1.1-1.8); Calcium 9.4 mg/dl (8.4-10.2); Chol/HDL Ratio 3.9 (1-3.5); Cholesterol 176 mg/dl (140-200); Globulin 3.1 g/dL (1.3-3.2); Glucose 109 mg/dl (74-100); HDL Cholesterol 45 mg/dl (40-60); Total Protein,Serum 7.3 g/dl (6.3-8.2); Triglycerides 134 mg/dl (30-150); VLDL Cholesterol 27 mg/dL (0-40)
[2021-03-05 16:46] LABS: Direct LDL Cholesterol 110.36 mg/dL (100-129)
[2021-03-05 17:05] LABS: Thyroid Stimulating Hormone 1.79 uIU/mL (0.465-4.68)
[2021-03-05 18:46] LABS: Hemoglobin A1C 6.1 % (4.0-6.0)
== END ==
PROVIDERS: Visit Provider Internal Medicine Adolescent Medicine
DX: E11.69 Type 2 diabetes mellitus with other specified complication (principal); E78.2 Mixed hyperlipidemia; E03.9 Hypothyroidism, unspecified
CPT/HCPCS: 80053; 80061; 83036; 84443

== ENCOUNTER → 2021-09-13 15:10 | Outpatient (CLI) | payer MEDICARE, BC, SELFPAY ==
--- NOTE | 2021-09-13 15:16 | CT_ITS ---
FINAL REPORT CLINICAL HISTORY: TOBACCO ABUSE, smoker, 8 cigs a day for 40+ years, copd, emphysema, silica exposure COMPARISON: April 19, 2019 and May 18, 2020 FINDINGS: Low-Dose Chest CT CTDI vol (mGy): 2.90 DLP (mGy-cm): 104.73 Axial images were obtained from the lung apex to the mid abdomen by computed tomography. Low-dose protocol was utilized. FINDINGS: CHEST: There is no axillary adenopathy. There is no hilar or mediastinal adenopathy. The heart is proper size. There is no pericardial or pleural effusion. Limited images of the upper abdomen demonstrate bilateral adrenal gland enlargement favoring adenomas. Lung window images demonstrate mild changes of emphysema and mild pulmonary scarring. There are multiple less than 5 mm nodules which are stable. There is a new 7 mm right lower lobe nodule on image 54. IMPRESSION: New 7 mm right lower lobe nodule. Lung RADS category 4A. Recommend 3 month follow-up low-dose chest CT. Reviewed, Interpreted and Dictated by Víctor Negron III, MD Transcribed by Linda Abdi Authenticated and [facility]
== END ==
PROVIDERS: PCP Internal Medicine Adolescent Medicine; Visit Provider Nurse Practitioner Family
DX: Z87.891 Personal history of nicotine dependence (principal); Z12.2 Encounter for screening for malignant neoplasm of respiratory organs
CPT/HCPCS: 71271

== ENCOUNTER 2021-12-16 13:52 | Emergency (ER) | payer MEDICARE, BC, SELFPAY ==
[2021-12-16 14:00] VITALS: BP 126/39; PULSE 96; RESP 22; O2SAT 95; BMI 44.1
--- NOTE | 2021-12-16 14:06 | XR_ITS ---
FINAL REPORT TECHNIQUE: Chest PA & Lateral CLINICAL HISTORY: SOB COMPARISON: April 06, 2020 FINDINGS: 2 views of the chest were performed. The heart size is normal. The mediastinum is within normal limits. There are mild chronic changes in the lungs. There is no acute cardiopulmonary process. There are no pleural effusions. There is no pneumothorax. The bony thorax appears intact. IMPRESSION: No acute cardiopulmonary process. Reviewed, Interpreted and Dictated by Kristopher Breen MD Transcribed by Sanjeev Seth Authenticated and [facility]
[2021-12-16 14:50] VITALS: BP 131/69; PULSE 84; RESP 24; TEMP 36.7; O2SAT 95; BMI 44.1
--- NOTE | 2021-12-16 15:17 | EXP.UTC ---
Discharge Plan Disposition Patient Disposition: Home, Self-Care Condition: Good Prescriptions Prescriptions: New azithromycin [Zithromax Z-Oscar] 250 mg tablet See Rx Instructions .ROUTE .COMPLEX 5 Days Qty: 6 0RF Rx Instructions: For 250 mg dose pack: take 500 mg today (day 1), then 250 mg for 4 days (days 2-5) No Action venlafaxine 75 mg capsule,extended release 24hr 75 mg PO DAILY verapamil 180 mg capsule,ext rel. pellets 24 hr 180 mg PO DAILY Qty: 90 3RF bisoprolol fumarate 10 mg tablet 10 mg PO DAILY Qty: 90 3RF albuterol sulfate 90 mcg/actuation HFA aerosol inhaler 1 inh INHALATION QID PRN (Reason: shortness of breath or wheezing) 90 Days Qty: 8.5 3RF ipratropium-albuterol 0.5 mg-3 mg(2.5 mg base)/3 mL solution for nebulization 3 ml INHALATION QID PRN (Reason: shortness of breath or wheezing) Qty: 90 6RF Trelegy Ellipta 200-62.5-25 mcg blister with device 1 inh INHALATION DAILY 90 Days Qty: 60 3RF losartan-hydrochlorothiazide 50-12.5 mg tablet 1 tab PO DAILY Qty: 90 3RF buspirone 10 MG tablet 10 mg PO BID montelukast 10 MG tablet 10 mg PO PM levothyroxine 200 mcg tablet 175 mcg PO DAILY atorvastatin 80 MG tablet 80 mg PO HS pantoprazole 40 MG tablet,delayed release (DR/EC) 40 mg PO HS acyclovir 400 MG tablet 400 mg PO DAILY Referrals Follow up/Referrals: Mango Albert MD [Primary Care Provider] - See instructions Activity Restrictions/Add. Instructions Additional Instructions/Restrictions: *Monitor Temp, Over the counter Motrin or Tylenol as directed/as needed Tylenol every 4 hours and Motrin every 6 hours (as long as your family doctor has told you that you can take it) for fever or pain. and straight to ER if unable to lower temp less than 101.0 after medication given *Warm salt water gargles may help to soothe the throat *Throat Lozenges? *Warm fluids like tea with honey may help to soothe the throat? *Sleep elevated *Humidifier/Vaporizer Follow up IMMEDIATELY for new or worsening symptoms or no Noticeable improvement over the next 48-72 hours. 911 for difficulty breathing or swallowing Clinical Impressions Clinical Impression: Sinusitis Instructions Patient Instructions: Sinuspauline, DI for Sinusitis Discharge ED Provider: Lorelei Alfonso [facility] – [place] HPI General Stated complaint: SOA Mode of Arrival: Ambulatory Source of Information: Patient Limitations: No Limitations Time Seen by Provider: 12/16/21 15:17 Description of Symptoms (Recalled from Triage Doc. by RN): PATIENT C/O SOA, CONGESTION, AND COUGH. SHE STATES THAT SYMPTOMS STARTED 2 WEEKS AGO AND HAS GOTTEN WORSE THE PAST 2 DAYS HEENT Symptoms (Recalled from RN notes): No Resp Symptoms (Recalled from RN notes): Yes Skin Symptoms (Recalled from RN notes): No MS Symptoms (Recalled from RN notes): No Functional Status (Recalled from RN notes): WNL History of Present Illness Provider Complaint: Patient states that for the last 2 weeks she has been having sinus congestion and pressure States that she thought it was just allergies but now she is having drainage in the back of her throat that is causing her to cough States that she hasnt been coughing anything up but the drainage made her cough so much earlier that she felt a little SOA but not now States that she thought it was just allergies but now worried she may have a sinus infection Related Data Home Medications Medication Instructions Recorded Confirmed atorvastatin 80 mg tablet 80 mg PO HS Cholesterol 06/10/18 08/31/21 pantoprazole 40 mg tablet,delayed 40 mg PO HS GERD 06/10/18 08/31/21 release acyclovir 400 mg tablet 400 mg PO DAILY Infection 04/19/19 08/31/21 buspirone 10 mg tablet 10 mg PO BID MOOD 04/06/20 08/31/21 montelukast 10 mg tablet 10 mg PO PM Breathing problems 04/06/20 08/31/21 levothyroxine 200 mcg tablet 175 mcg PO DAILY THYROID 06/10/20 08/31/21 venlafaxine
[2021-12-16 15:55] VITALS: BP 131/69; PULSE 84; RESP 24; TEMP 36.7; O2SAT 95
== END 2021-12-16 16:02 | disposition home or self-care (01) ==
LOC: ER 13:59 → UTC 13:59 → ER 14:00 → UTC 14:02
PROVIDERS: Emergency Provider Nurse Practitioner; PCP Internal Medicine Adolescent Medicine
DX: R06.02 Shortness of breath (principal); R42 Dizziness and giddiness; R94.31 Abnormal electrocardiogram [ECG] [EKG]; R09.81 Nasal congestion; R00.0 Tachycardia, unspecified; R05.9 Cough, unspecified; I10 Essential (primary) hypertension; I51.9 Heart disease, unspecified; E78.5 Hyperlipidemia, unspecified; E11.9 Type 2 diabetes mellitus without complications; J44.9 Chronic obstructive pulmonary disease, unspecified; F32.A Depression, unspecified; F41.9 Anxiety disorder, unspecified; F17.210 Nicotine dependence, cigarettes, uncomplicated; Z79.51 Long term (current) use of inhaled steroids; Z79.899 Other long term (current) drug therapy; Z88.0 Allergy status to penicillin; Z88.1 Allergy status to other antibiotic agents; Z88.3 Allergy status to other anti-infective agents; Z82.49 Family history of ischemic heart disease and other diseases of the circulatory system
CPT/HCPCS: 71046; 96372; 99213; G0463

== ENCOUNTER → 2022-01-03 15:25 | Outpatient (CLI) | payer MEDICARE, BC, SELFPAY ==
--- NOTE | 2022-01-03 15:29 | CT_ITS ---
FINAL REPORT TECHNIQUE: Axial images were obtained from the lung apex to the mid abdomen by computed tomography. Coronal reformatted images were obtained. This study was performed with techniques to keep radiation doses as low as reasonably achievable, (ALARA). Individualized dose reduction techniques using automated exposure control or adjustment of mA and/or kV according to the patient''s size were employed. CLINICAL HISTORY: PULMONARY NODULE COMPARISON: September 13, 2021 FINDINGS: There is no axillary adenopathy. There is no hilar or mediastinal adenopathy. Heart size is normal. There is no pericardial or pleural effusion. On the lung window images there are moderate changes of emphysema with mild pulmonary scarring. There is a new left upper lobe nodule measuring 6 mm, well seen on image 36. There has been interval resolution of a 7 mm nodule in the right lower lobe seen on the prior exam. There are several other less than 5 mm pulmonary nodules which are visually stable. Limited images of the upper abdomen demonstrate fatty infiltration of the liver. There is bilateral adrenal gland enlargement favoring adenomas. IMPRESSION: New 6 mm left upper lobe nodule, most likely inflammatory but recommend follow-up in 6 months. Interval resolution of 7 mm nodule in right lower lobe. Several other less than 5 mm pulmonary nodules visually stable. Reviewed, Interpreted and Dictated by Víctor Negron III, MD Transcribed by Linda Abdi Authenticated and [facility]
== END ==
PROVIDERS: PCP Internal Medicine Adolescent Medicine; Visit Provider Nurse Practitioner Family
DX: R91.1 Solitary pulmonary nodule (principal)
CPT/HCPCS: 71250

== ENCOUNTER 2022-04-03 17:15 | Emergency (ER) | payer MEDICARE, BC, SELFPAY ==
[2022-04-03 17:16] VITALS: BP 139/94; PULSE 104; RESP 19; TEMP 37.2; O2SAT 94; BMI 45.7
--- NOTE | 2022-04-03 17:55 | ECG_ITS ---
APPROVED REPORT Exam: Resting ECG HR:103 bpm ECG Measurements Heart Rate 103 AXES AR 148 P 56 QRSd 82 QRS 48 QT 311 T 60 QTc 371 Conclusion SINUS TACHYCARDIA NONSPECIFIC ST & T-WAVE ABNORMALITY ABNORMAL RHYTHM ECG UNCONFIRMED REPORT Electronically signed by : Mango Albert MD 04/04/2022 19:24:55
--- NOTE | 2022-04-03 17:57 | XR_ITS ---
PROCEDURE INFORMATION: Exam: XR Chest Exam date and time: 04/03/2022 6:14 PM Age: 61 years old Clinical indication: Shortness of breath; Additional info: SOB TECHNIQUE: Imaging protocol: Radiologic exam of the chest. Views: 1 view. COMPARISON: CT CHEST WO CON 01/03/2022 3:29 PM FINDINGS: Lungs: Unremarkable. No consolidation. Pleural spaces: Unremarkable. No pleural effusion. No pneumothorax. Heart/Mediastinum: Unremarkable. No cardiomegaly. Bones/joints: Unremarkable. IMPRESSION: No acute findings.
[2022-04-03 18:03] VITALS: BP 129/65; PULSE 100; O2SAT 95
[2022-04-03 18:06] LABS: Basophils # 0.1 K/mm3 (0-0.2); Basophils % 0.4 % (0.1-2.0); Eosinophils # 0.2 K/mm3 (0.0-0.4); Hematocrit 35.3 % (37.0-47.0); Hemoglobin 11.5 g/dL (12.2-16.2); Lymphocytes # 2.2 K/mm3 (0.7-4.5); Mean Corpuscular HGB Conc 32.6 g/dL (31.8-35.4); Mean Corpuscular Hemoglobin 31.5 pg (27.0-31.2); Mean Corpuscular Volume 96.5 fl (81-99); Mean Platelet Volume 7.5 fl (7.4-10.4); Monocytes # 0.7 K/mm3 (0.1-1.0); Monocytes % 4.5 % (1.7-9.3); Neutrophils # 12.3 K/mm3 (1.8-7.8); Neutrophils % 80.1 % (37.0-80.0); Platelet Count 343 K/mm3 (142-424); Red Blood Count 3.65 M/mm3 (4.20-5.40); Red Cell Distribution Width 13.2 % (11.5-17.5); White Blood Count 15.4 K/mm3 (4.8-10.8)
[2022-04-03 18:08] LABS: Alanine Aminotransferase 45 U/L (12-78); Albumin Level 4.2 g/dl (3.5-5.0); Albumin/Globulin Ratio 1.1 (1.1-1.8); Alkaline Phosphatase 82 U/L (38-126); Anion Gap 11.8 mEq/L (5-15); Aspartate Amino Transferase 34 U/L (14-36); Bilirubin,Total 0.7 mg/dl (0.2-1.3); Blood Urea Nitrogen 10 mg/dl (7-17); Calcium 8.7 mg/dl (8.4-10.2); Carbon Dioxide 35 mmol/L (22.0-30.0); Chloride 91 mmol/L (98-107); Creatinine Clearance Estimated 52 mL/min (50-200); Estimated Glomerular Filt Rate 63 ml/min (>60); GFR (African American) 77 ML/MIN (>60); Globulin 3.9 g/dL (1.3-3.2); Glucose 128 mg/dl (74-100); Potassium 3.8 mmoL/L (3.5-5.1); Sodium 134 mmol/L (136-145); Total Protein,Serum 8.1 g/dl (6.3-8.2)
[2022-04-03 18:16] LABS: Lactic Acid 2.8 mmol/L (0.7-2.1)
[2022-04-03 18:17] LABS: MANUAL DIFFERENTIAL MANUAL DIFFERENTIAL (MANUAL DIFF)
[2022-04-03 18:21] LABS: Troponin I < 0.01 ng/ml (0.00-0.034)
[2022-04-03 18:27] LABS: Lymphocytes % 9 % (10-50); Monocytes % 2 % (2-9); Neutrophils % 82 % (42-76); Platelet Estimate Normal; RBC Morphology Normal; Total Cells Counted 100; Toxic Granulation 1+
[2022-04-03 18:31] VITALS: BP 125/67; PULSE 98; O2SAT 93
[2022-04-03 18:36] LABS: Reflex Lactic Add Lactic Reflex
[2022-04-03 19:01] VITALS: BP 139/61; PULSE 101; O2SAT 95
[2022-04-03 19:31] VITALS: BP 118/74; PULSE 96; O2SAT 94
[2022-04-03 19:40] VITALS: BP 118/74; PULSE 96; RESP 19; TEMP 36.7; O2SAT 95
--- NOTE | 2022-04-03 23:30 | HMH.EDGENADL ---
Discharge Plan Disposition Patient Disposition: Home, Self-Care Condition: Good Prescriptions Prescriptions: New azithromycin 500 mg tablet 500 mg PO DAILY 4 Days Qty: 4 0RF No Action venlafaxine 75 mg capsule,extended release 24hr 75 mg PO DAILY bisoprolol fumarate 10 mg tablet 10 mg PO DAILY Qty: 90 3RF albuterol sulfate 90 mcg/actuation HFA aerosol inhaler 1 inh INHALATION QID PRN (Reason: shortness of breath or wheezing) 90 Days Qty: 8.5 3RF ipratropium-albuterol 0.5 mg-3 mg(2.5 mg base)/3 mL solution for nebulization 3 ml INHALATION QID PRN (Reason: shortness of breath or wheezing) Qty: 90 6RF Trelegy Ellipta 200-62.5-25 mcg blister with device 1 inh INHALATION DAILY 90 Days Qty: 60 3RF losartan-hydrochlorothiazide 50-12.5 mg tablet 1 tab PO DAILY Qty: 90 3RF verapamil 180 mg capsule,ext rel. pellets 24 hr 180 mg PO DAILY Qty: 90 1RF buspirone 10 MG tablet 10 mg PO BID montelukast 10 MG tablet 10 mg PO PM levothyroxine 200 mcg tablet 175 mcg PO DAILY atorvastatin 80 MG tablet 80 mg PO HS pantoprazole 40 MG tablet,delayed release (DR/EC) 40 mg PO HS acyclovir 400 MG tablet 400 mg PO DAILY azithromycin [Zithromax Z-Oscar] 250 mg tablet See Rx Instructions .ROUTE .COMPLEX 5 Days Qty: 6 0RF Rx Instructions: For 250 mg dose pack: take 500 mg today (day 1), then 250 mg for 4 days (days 2-5) Referrals Follow up/Referrals: Provider,Referral, MD [Primary Care Provider] - See instructions Clinical Impressions Clinical Impression: COPD exacerbation Discharge ED Provider: Ellis Rodríguez General Adult HPI General Chief complaint: Shortness of Breath/Dyspnea Stated complaint: soa Time Seen by Provider: 04/03/22 17:35 Mode of Arrival: Wheelchair Source of Information: Patient Limitations: No Limitations Description of Symptoms (Recalled from ER Triage Doc. by RN): PT STATES SHE HAS HAD INCREASED SHORTNESS OF BREATH AND A PRODUCTIVE COUGH SINCE YESTERDAY History of Present Illness HPI narrative: Patient presents for evaluation of increased productive cough and shortness of breath. Patient has past history of COPD and frequent COPD exacerbations. She is now requiring more oxygen than she normally does at home. Related Data Home Medications Medication Instructions Recorded Confirmed atorvastatin 80 mg tablet 80 mg PO HS Cholesterol 06/10/18 03/15/22 pantoprazole 40 mg tablet,delayed 40 mg PO HS GERD 06/10/18 03/15/22 release acyclovir 400 mg tablet 400 mg PO DAILY Infection 04/19/19 03/15/22 buspirone 10 mg tablet 10 mg PO BID MOOD 04/06/20 03/15/22 montelukast 10 mg tablet 10 mg PO PM Breathing problems 04/06/20 03/15/22 levothyroxine 200 mcg tablet 175 mcg PO DAILY THYROID 06/10/20 03/15/22 venlafaxine 75 mg capsule,extended 75 mg PO DAILY 10/26/20 03/15/22 release 24 hr Previous Rx's Medication Instructions Recorded albuterol sulfate 90 mcg/actuation 1 inh inhalation QID PRN shortness 08/12/20 aerosol inhaler of breath or wheezing 90 days #8.5 grams fluticasone fur. 200 mcg-umeclid 1 inh inhalation DAILY 90 days #60 08/12/20 62.5 mcg-vilant 25 mcg ea inhalat.powder (Trelegy Ellipta) ipratropium 0.5 mg-albuterol 3 mg 3 ml inhalation QID PRN shortness 08/12/20 (2.5 mg base)/3 mL nebulization of breath or wheezing #90 mL soln bisoprolol fumarate 10 mg tablet 10 mg PO DAILY #90 tabs 08/31/21 losartan 50 mg-hydrochlorothiazide 1 tab PO DAILY #90 tabs 10/25/21 12.5 mg tablet azithromycin 250 mg tablet See Rx Instructions PO .COMPLEX 5 12/16/21 (Zithromax Z-Oscar) days #6 tabs verapamil 180 mg 24 hr 180 mg PO DAILY #90 caps 02/23/22 capsule,extended release azithromycin 500 mg tablet 500 mg PO DAILY COPD exacerbation 04/03/22 4 days #4 tabs Allergies Allergy/AdvReac Type Severity Reaction Status Date / Time cephalexin [From KEFLEX] Allergy Mild Verified 03/15/22 10:35 Penicillins All
== END 2022-04-03 19:43 | disposition home or self-care (01) ==
PROVIDERS: Emergency Provider Emergency Medicine
DX: J44.1 Chronic obstructive pulmonary disease with (acute) exacerbation (principal); F41.9 Anxiety disorder, unspecified; E11.9 Type 2 diabetes mellitus without complications; I50.30 Unspecified diastolic (congestive) heart failure; I11.0 Hypertensive heart disease with heart failure; E78.5 Hyperlipidemia, unspecified; Z82.49 Family history of ischemic heart disease and other diseases of the circulatory system; Z87.440 Personal history of urinary (tract) infections; F17.210 Nicotine dependence, cigarettes, uncomplicated
CPT/HCPCS: 71045; 80053; 83605; 84484; 85007; 85025; 87040; 93005; 96361; 96374; 96375; 99285; J2405

== ENCOUNTER 2023-01-12 09:01 | Emergency (ER) | payer MEDICARE, BC, SELFPAY ==
--- NOTE | 2023-01-12 09:01 | ECG_ITS ---
APPROVED REPORT Exam: Resting ECG HR:87 bpm ECG Measurements Heart Rate 87 AXES AK 175 P 70 QRSd 98 QRS 68 QT 369 T 72 QTc 413 Conclusion SINUS RHYTHM NONSPECIFIC T-WAVE ABNORMALITY BORDERLINE ECG UNCONFIRMED REPORT Electronically signed by : Mango Albert MD 01/12/2023 10:08:19
[2023-01-12 09:02] VITALS: BP 136/72; PULSE 88; RESP 22; TEMP 36.7; O2SAT 89; BMI 54.1
--- NOTE | 2023-01-12 09:05 | PC.NURSE ---
PT PLACED ON HOME O2 AT 3.5L/NC, ROOM AIR SAT 89%
--- NOTE | 2023-01-12 09:22 | XR_ITS ---
FINAL REPORT TECHNIQUE: Single view chest CLINICAL HISTORY: dyspnea copd x 3+ years former smoker COMPARISON: 04/03/2022 FINDINGS: A single view of the chest was obtained. The heart and mediastinum are within normal limits. There is right base opacity favored represent atelectasis or pneumonia. There is no pneumothorax. Osseous structures are unremarkable. IMPRESSION: Right base opacity, favor atelectasis or pneumonia. Reviewed, Interpreted and Dictated by Víctor Negron III, MD Transcribed by Sandy Osman Authenticated and [facility]
--- NOTE | 2023-01-12 09:24 | HMH.EDGENADL ---
Discharge Plan Disposition Patient Disposition: Home, Self-Care Prescriptions Prescriptions: New doxycycline hyclate 100 mg capsule 100 mg PO BID 10 Days Qty: 20 0RF benzonatate 100 mg capsule 100 mg PO TID PRN (Reason: cough) 5 Days Qty: 20 0RF albuterol sulfate 90 mcg/actuation HFA aerosol inhaler 4 inh inhalation Q4H PRN (Reason: shortness of breath or wheezing) Qty: 8.5 0RF Rx Instructions: 4 puffs every 4 hours for 48 hours then as needed for shortness of breath or wheezing following No Action venlafaxine 75 mg capsule,extended release 24hr 75 mg PO DAILY albuterol sulfate 90 mcg/actuation HFA aerosol inhaler 1 inh INHALATION QID PRN (Reason: shortness of breath or wheezing) 90 Days Qty: 8.5 3RF ipratropium-albuterol 0.5 mg-3 mg(2.5 mg base)/3 mL solution for nebulization 3 ml INHALATION QID PRN (Reason: shortness of breath or wheezing) Qty: 90 6RF Trelegy Ellipta 200-62.5-25 mcg blister with device 1 inh INHALATION DAILY 90 Days Qty: 60 3RF hydrochlorothiazide 25 mg tablet 25 mg PO DAILY Qty: 90 3RF losartan 50 mg tablet 50 mg PO DAILY Qty: 90 3RF bisoprolol fumarate 10 mg tablet See Rx Instructions .ROUTE .COMPLEX Qty: 90 3RF Dose Instruction: TAKE 1 TABLET BY MOUTH DAILY Rx Instructions: TAKE 1 TABLET BY MOUTH DAILY verapamil 180 mg capsule,ext rel. pellets 24 hr See Rx Instructions .ROUTE .COMPLEX Qty: 90 3RF Dose Instruction: TAKE 1 CAPSULE BY MOUTH ONCE DAILY Rx Instructions: TAKE 1 CAPSULE BY MOUTH ONCE DAILY buspirone 10 MG tablet 10 mg PO BID montelukast 10 MG tablet 10 mg PO PM levothyroxine 200 mcg tablet 200 mcg PO DAILY atorvastatin 80 MG tablet 80 mg PO HS pantoprazole 40 MG tablet,delayed release (DR/EC) 40 mg PO HS acyclovir 400 MG tablet 400 mg PO DAILY Referrals Follow up/Referrals: Provider,Referral, MD [Referring] - See instructions Activity Restrictions/Add. Instructions Additional Instructions/Restrictions: Turn with any worsening shortness of breath or other concerns. Clinical Impressions Clinical Impression: COPD exacerbation Discharge ED Provider: Farooq,J Blake General Adult HPI General Chief complaint: Shortness of Breath/Dyspnea Stated complaint: SOB Time Seen by Provider: 01/12/23 09:16 History of Present Illness HPI narrative: Patient is a 62-year-old female here with chest tightness and difficulty breathing and increased wheezing. She states she has a history of COPD exacerbation and this is what it feels like to her. She states that she never leaves her home she is not concerned about being exposed to any viral pathogen specifically any COVID or flu and she would not like to have a swab today. She states she called her primary care doctor had an azithromycin Z-Oscar that was called in without any significant improvement she states she normally requires steroids when she has these types of exacerbations. She denies any lower extremity swelling getting hemoptysis any fevers or chills any history of DVT or PE etc. Related Data Home Medications Medication Instructions Recorded Confirmed atorvastatin 80 mg tablet 80 mg PO HS Cholesterol 06/10/18 10/18/22 pantoprazole 40 mg tablet,delayed 40 mg PO HS GERD 06/10/18 10/18/22 release acyclovir 400 mg tablet 400 mg PO DAILY Infection 04/19/19 10/18/22 buspirone 10 mg tablet 10 mg PO BID MOOD 04/06/20 10/18/22 montelukast 10 mg tablet 10 mg PO PM Breathing problems 04/06/20 10/18/22 venlafaxine 75 mg capsule,extended 75 mg PO DAILY 10/26/20 10/18/22 release 24 hr levothyroxine 200 mcg tablet 200 mcg PO DAILY THYROID 10/18/22 10/18/22 Previous Rx's Medication Instructions Recorded albuterol sulfate 90 mcg/actuation 1 inh inhalation QID PRN shortness 08/12/20 aerosol inhaler of breath or wheezing 90 days #8.5 grams fluticasone fur. 200 mcg-umeclid 1 inh inhalation DAILY 90 days #
--- NOTE | 2023-01-12 09:29 | PC.NURSE ---
XR AT BEDSIDE
[2023-01-12 09:31] VITALS: BP 133/68; PULSE 86; RESP 20; O2SAT 98
[2023-01-12 09:34] LABS: Basophils % 0.3 % (0.1-2.0); Eosinophils # 0.1 K/mm3 (0.0-0.4); Eosinophils % 1.4 % (0.1-12.0); Hematocrit 31.5 % (37.0-47.0); Lymphocytes # 1.6 K/mm3 (0.7-4.5); Lymphocytes % 16.2 % (10-50); Mean Corpuscular HGB Conc 35.1 g/dL (31.8-35.4); Mean Corpuscular Hemoglobin 32.9 pg (27.0-31.2); Mean Corpuscular Volume 93.7 fl (81-99); Mean Platelet Volume 7.2 fl (7.4-10.4); Monocytes # 0.5 K/mm3 (0.1-1.0); Monocytes % 4.7 % (1.7-9.3); Neutrophils # 7.8 K/mm3 (1.8-7.8); Neutrophils % 77.4 % (37.0-80.0); Platelet Count 290 K/mm3 (142-424); Red Blood Count 3.36 M/mm3 (4.20-5.40); Red Cell Distribution Width 14.1 % (11.5-17.5); White Blood Count 10.1 K/mm3 (4.8-10.8)
[2023-01-12 09:36] LABS: Chloride 85 mmol/L (98-107); Sodium 128 mmol/L (136-145)
[2023-01-12 09:37] LABS: Potassium 4.4 mmoL/L (3.5-5.1)
[2023-01-12 09:39] LABS: Alanine Aminotransferase 62 U/L (12-78); Albumin Level 4.3 g/dl (3.5-5.0); Albumin/Globulin Ratio 1.1 (1.1-1.8); Alkaline Phosphatase 76 U/L (38-126); Anion Gap 10.4 mEq/L (5-15); Aspartate Amino Transferase 63 U/L (14-36); Bilirubin,Total 0.5 mg/dl (0.2-1.3); Blood Urea Nitrogen 14 mg/dl (7-17); Carbon Dioxide 37 mmol/L (22.0-30.0); Creatinine Clearance Estimated 52 mL/min (50-200); Estimated Glomerular Filt Rate 72 ml/min (>60); GFR (African American) 88 ML/MIN (>60); Globulin 3.8 g/dL (1.3-3.2); Total Protein,Serum 8.1 g/dl (6.3-8.2)
[2023-01-12 09:40] LABS: Calcium 8.8 mg/dl (8.4-10.2); Glucose 142 mg/dl (74-100)
[2023-01-12 09:49] LABS: NT Pro Brain Natriuretic Pep. 325 pg/mL (0-125)
[2023-01-12 10:08] LABS: Troponin I < 0.01 ng/ml (0.00-0.034)
[2023-01-12 10:35] VITALS: BP 136/79; PULSE 82; RESP 18; TEMP 36.7; O2SAT 96
== END 2023-01-12 10:35 | disposition home or self-care (01) ==
PROVIDERS: Emergency Provider Student in an Organized Health Care Education/Training Program; PCP Nurse Practitioner Family
DX: J44.1 Chronic obstructive pulmonary disease with (acute) exacerbation (principal); R06.02 Shortness of breath; F17.210 Nicotine dependence, cigarettes, uncomplicated; E78.5 Hyperlipidemia, unspecified; I10 Essential (primary) hypertension; F41.9 Anxiety disorder, unspecified; F32.A Depression, unspecified
CPT/HCPCS: 71045; 80053; 83880; 84484; 85025; 93005; 96372; 96374; 99284

== ENCOUNTER 2023-04-20 13:50 | Outpatient (CLI) | payer MEDICARE, BC, SELFPAY ==
--- NOTE | 2023-04-20 14:07 | XR_ITS ---
FINAL REPORT CLINICAL HISTORY: wheezing x 3 weeks smoker x 50 yrs copd asthma FINDINGS: TWO-VIEW CHEST The heart size is normal. The mediastinum is normal. There are mild chronic changes at the bases. There is no pneumothorax. IMPRESSION: No acute cardiopulmonary process. Reviewed, Interpreted and Dictated by Kristopher Breen MD Transcribed by Amber Gupta Authenticated and [facility]
[2023-04-20 14:40] LABS: Basophils # 0.1 K/mm3 (0-0.2); Basophils % 0.4 % (0.1-2.0); Eosinophils # 0.2 K/mm3 (0.0-0.4); Eosinophils % 1.6 % (0.1-12.0); Hematocrit 33.1 % (37.0-47.0); Hemoglobin 11.1 g/dL (12.2-16.2); Lymphocytes # 2.8 K/mm3 (0.7-4.5); Lymphocytes % 20.2 % (10-50); Mean Corpuscular HGB Conc 33.7 g/dL (31.8-35.4); Mean Corpuscular Hemoglobin 31.7 pg (27.0-31.2); Mean Platelet Volume 7.7 fl (7.4-10.4); Monocytes # 0.7 K/mm3 (0.1-1.0); Neutrophils % 72.8 % (37.0-80.0); Platelet Count 361 K/mm3 (142-424); Red Blood Count 3.52 M/mm3 (4.20-5.40); Red Cell Distribution Width 13.4 % (11.5-17.5); White Blood Count 13.8 K/mm3 (4.8-10.8)
[2023-04-20 14:55] LABS: Chloride 96 mmol/L (98-107); Sodium 136 mmol/L (136-145)
[2023-04-20 14:56] LABS: Potassium 3.7 mmoL/L (3.5-5.1)
[2023-04-20 14:58] LABS: Blood Urea Nitrogen 13 mg/dl (7-17); Estimated Glomerular Filt Rate 63 ml/min (>60); GFR (African American) 77 ML/MIN (>60)
[2023-04-20 14:59] LABS: Anion Gap 15.7 mEq/L (5-15); Carbon Dioxide 28 mmol/L (22.0-30.0); Glucose 91 mg/dl (74-100)
== END 2023-04-20 23:59 ==
LOC: LAB 13:51
PROVIDERS: PCP Nurse Practitioner Family; Visit Provider Nurse Practitioner
DX: E66.9 Obesity, unspecified (principal); E78.5 Hyperlipidemia, unspecified; I10 Essential (primary) hypertension; J44.9 Chronic obstructive pulmonary disease, unspecified; R06.00 Dyspnea, unspecified; R06.2 Wheezing; R94.30 Abnormal result of cardiovascular function study, unspecified; Z68.41 Body mass index [BMI] 40.0-44.9, adult
CPT/HCPCS: 36415; 71046; 80048; 85025

== ENCOUNTER 2023-05-05 10:39 | Outpatient (CLI) | payer MEDICARE, BC, SELFPAY ==
--- NOTE | 2023-05-05 10:39 | CA_ITS ---
APPROVED REPORT EXAM: Comprehensive 2D, Doppler, and color-flow Echocardiogram Embroidery Supervisor: Miguelina Sanon, RCS, RVS Ht: 5 ft 4 in Wt: 268lbs BSA: 2.22 BP: 140/68 mmHg Indications: COPD, Home O2, HTN, HLD, LAMBERT, Abn GXT 2D Dimensions IVSd 1.19 cm LVEF (Visual) 59.50 % PWd 1.29 cm LA Volume 58.70 mL LVDd 5.41 cm LA Volume Index 25.60 mL/m2 (M/F) 16-34 LVDs 3.68 cm EF AP4 34.20 % Left Atrium 3.68 cm GL Strain -21.0 % M-Mode Dimensions RVDd 3.01 cm (0.9-2.6) LVDd 4.84 cm (3.5-5.7) LVDs 3.16 cm (3.5-5.7) IVSd 1.30 cm (0.6-1.1) PWd 1.07 cm (0.6-1.1) EF (Teich) 63.80% EPSs 0.72 cm FS 34.70% EDV (Teich) 109.60 mL TAPSE 3.01 (<1.7) ESV (Teich) 39.70 mL LV Diastology E Decel Time 210 (160-240 msec) E/A Ratio 1.11 MED A' 9.60 cm/s LAT A' 11.10 cm/s Pulm Vein s 83.00 cm/sec Pulm Vein d 30.00 cm/sec Ar-A Duration 110.00 msec Aortic Valve LACEY Index 0.83 cm2/m2 AoV Peak Gabino. 161.0 (50-130 cm/s) AO Peak GR. 10.40 mmHg AO Mean GR. 6.00 (<5 mmHg) AO VTI 33.7 (18-25 cm) LACEY (VTI) 1.89 (2.5-4.5 cm2) Mitral Valve MV A Velocity 104.0 (40-130 cm/s) E/A Ratio 1.11 MV Mean Gr. 3.50 (<2mmHg) Tricuspid Valve TR P. Velocity 209.00 cm/s RAP Estimate 10.00 mmHg RVSP 27.40 mmHg Left Ventricle The left ventricle is normal size. The left ventricular systolic function is normal. The left ventricular ejection fraction is within the normal range. There is normal left ventricular wall thickness. There is normal LV segmental wall motion. The left ventricular diastolic function is normal. LVEF is 55%. Right Ventricle The right ventricle is mildly dilated. The right ventricular systolic function is normal. Atria The left atrium size is normal. The right atrium size is normal. There is no Doppler evidence of interatrial shunt. Aortic Valve The aortic valve is mildly thickened. There is no aortic valvular stenosis. Trace aortic regurgitation. Mitral Valve The mitral valve leaflets are mildly thickened. No evidence of mitral valve stenosis. Mild mitral regurgitation. Tricuspid Valve The tricuspid valve leaflets are thin and pliable. Mild tricuspid regurgitation. RVSP is 20-25 mmHg. Pulmonic Valve The pulmonic valve is not well-visualized. Mild pulmonic regurgitation. Great Vessels The aortic root is normal in size. The ascending aorta is not well-visualized. IVC is normal in size and collapses >50% with inspiration. Pericardium There is no pericardial effusion. Other Information Study Quality: Technically Difficult Conclusion Technically difficult study due to poor acoustic windows. Normal biventricular systolic function. Mild RV dilation. Mild MR, mild TR, mild PI. Electronically signed by : Denice Osullivan MD 05/08/2023 12:44:32
== END 2023-05-05 23:59 ==
LOC: RT 10:39
PROVIDERS: PCP Nurse Practitioner Family; Visit Provider Nurse Practitioner
DX: E66.9 Obesity, unspecified (principal); E78.5 Hyperlipidemia, unspecified; I10 Essential (primary) hypertension; J44.9 Chronic obstructive pulmonary disease, unspecified; R06.00 Dyspnea, unspecified; R06.2 Wheezing; R94.30 Abnormal result of cardiovascular function study, unspecified; R94.31 Abnormal electrocardiogram [ECG] [EKG]; Z68.41 Body mass index [BMI] 40.0-44.9, adult
CPT/HCPCS: 93306

== ENCOUNTER 2023-05-11 14:00 | Outpatient (CLI) | payer MEDICARE, BC, SELFPAY ==
[2023-05-11 15:00] LABS: Alanine Aminotransferase 41 U/L (12-78); Alkaline Phosphatase 71 U/L (38-126); Anion Gap 10.9 mEq/L (5-15); Aspartate Amino Transferase 43 U/L (14-36); Bilirubin,Direct 0.2 mg/dl (0.0-0.4); Bilirubin,Indirect 0.3 mg/dL (0.0-0.9); Bilirubin,Total 0.5 mg/dl (0.2-1.3); Bilirubin,Unconjugated 0.3 mg/dL (0.0-1.1); Blood Urea Nitrogen 12 mg/dl (7-17); Calcium 9.2 mg/dl (8.4-10.2); Carbon Dioxide 35 mmol/L (22.0-30.0); Chloride 95 mmol/L (98-107); Chol/HDL Ratio 4.5 (1-3.5); Cholesterol 180 mg/dl (140-200); Estimated Glomerular Filt Rate 63 ml/min (>60); GFR (African American) 77 ML/MIN (>60); Glucose 104 mg/dl (74-100); HDL Cholesterol 40 mg/dl (40-60); Magnesium 1.8 mg/dl (1.6-2.3); Potassium 3.9 mmoL/L (3.5-5.1); Sodium 137 mmol/L (136-145); Total Protein,Serum 7.3 g/dl (6.3-8.2); Triglycerides 148 mg/dl (30-150); VLDL Cholesterol 30 mg/dL (0-40)
[2023-05-11 19:32] LABS: Basophils % 0.2 % (0.1-2.0); Eosinophils # 0.2 K/mm3 (0.0-0.4); Hematocrit 33.8 % (37.0-47.0); Hemoglobin 11.2 g/dL (12.2-16.2); Lymphocytes # 2.2 K/mm3 (0.7-4.5); Lymphocytes % 20.1 % (10-50); Mean Corpuscular Hemoglobin 31.1 pg (27.0-31.2); Mean Corpuscular Volume 94.3 fl (81-99); Mean Platelet Volume 8.8 fl (7.4-10.4); Monocytes # 0.6 K/mm3 (0.1-1.0); Monocytes % 5.2 % (1.7-9.3); Neutrophils # 7.8 K/mm3 (1.8-7.8); Neutrophils % 72.5 % (37.0-80.0); Platelet Count 348 K/mm3 (142-424); Red Blood Count 3.59 M/mm3 (4.20-5.40); Red Cell Distribution Width 13.4 % (11.5-17.5); White Blood Count 10.8 K/mm3 (4.8-10.8)
== END 2023-05-11 23:59 ==
PROVIDERS: PCP Nurse Practitioner Family; Visit Provider Nurse Practitioner Family
DX: E78.5 Hyperlipidemia, unspecified (principal); I10 Essential (primary) hypertension; I51.89 Other ill-defined heart diseases; R06.00 Dyspnea, unspecified; R94.30 Abnormal result of cardiovascular function study, unspecified; R94.31 Abnormal electrocardiogram [ECG] [EKG]
CPT/HCPCS: 36415; 80048; 80061; 80076; 83735; 85025

== ENCOUNTER 2023-08-14 13:09 | Emergency (ER) | payer MEDICARE, BC, SELFPAY ==
[2023-08-14 13:10] VITALS: BP 115/56; PULSE 90; RESP 22; TEMP 36.6; O2SAT 93; BMI 42.4
[2023-08-14 13:38] VITALS: BP 107/54; PULSE 87; O2SAT 93
--- NOTE | 2023-08-14 14:00 | ED_ITS ---
Discharge Plan Disposition Patient Disposition: Home, Self-Care Prescriptions Prescriptions: No Action venlafaxine 75 mg capsule,extended release 24hr 75 mg PO DAILY furosemide [Lasix] 20 mg tablet 20 mg PO DAILY Qty: 30 5RF amlodipine 5 mg tablet PO levothyroxine 25 mcg tablet PO albuterol sulfate 90 mcg/actuation HFA aerosol inhaler 1 inh INHALATION QID PRN (Reason: shortness of breath or wheezing) 90 Days Qty: 8.5 3RF ipratropium-albuterol 0.5 mg-3 mg(2.5 mg base)/3 mL solution for nebulization 3 ml INHALATION QID PRN (Reason: shortness of breath or wheezing) Qty: 90 6RF Trelegy Ellipta 200-62.5-25 mcg blister with device 1 inh INHALATION DAILY 90 Days Qty: 60 3RF losartan 50 mg tablet 50 mg PO DAILY Qty: 90 3RF bisoprolol fumarate 10 mg tablet See Rx Instructions .ROUTE .COMPLEX Qty: 90 3RF Dose Instruction: TAKE 1 TABLET BY MOUTH DAILY Rx Instructions: TAKE 1 TABLET BY MOUTH DAILY verapamil 180 mg capsule,ext rel. pellets 24 hr See Rx Instructions .ROUTE .COMPLEX Qty: 90 3RF Dose Instruction: TAKE 1 CAPSULE BY MOUTH ONCE DAILY Rx Instructions: TAKE 1 CAPSULE BY MOUTH ONCE DAILY buspirone 10 MG tablet 10 mg PO BID montelukast 10 MG tablet 10 mg PO PM levothyroxine 200 mcg tablet 200 mcg PO DAILY doxycycline hyclate 100 mg capsule 100 mg PO BID 10 Days Qty: 20 0RF benzonatate 100 mg capsule 100 mg PO TID PRN (Reason: cough) 5 Days Qty: 20 0RF albuterol sulfate 90 mcg/actuation HFA aerosol inhaler 4 inh inhalation Q4H PRN (Reason: shortness of breath or wheezing) Qty: 8.5 0RF Rx Instructions: 4 puffs every 4 hours for 48 hours then as needed for shortness of breath or wheezing following atorvastatin 80 MG tablet 80 mg PO HS pantoprazole 40 MG tablet,delayed release (DR/EC) 40 mg PO HS acyclovir 400 MG tablet 400 mg PO DAILY Referrals Follow up/Referrals: Aubrie Garza, ROLL[employer]INTER [Primary Care Provider] - See instructions Activity Restrictions/Add. Instructions Additional Instructions/Restrictions: Please take your breathing treatments every 4 hours for the next 48 hours continue your doxycycline and you are given a long-acting steroid today. Please discuss with Marylu whether or not they can replace your oxygen concentrator at home and continue to use your alternative 1 until that is been fixed. Return to the emergency room with any significant worsening of your symptoms. I also recommend that you take your home pulse oximeter to your doctor's appointment next to make sure it is calibrated appropriately as he most likely had a false reading today as well. Clinical Impressions Clinical Impression: Breakage of medical center representative, Acute exacerbation of chronic obstructive pulmonary disease Discharge ED Provider: Nate Farooq General Adult HPI General Chief complaint: Shortness of Breath/Dyspnea Stated complaint: Low O2 Time Seen by Provider: 08/14/23 13:48 Mode of Arrival: Wheelchair Source of Information: Patient Limitations: No Limitations Description of Symptoms (Recalled from ER Triage Doc. by RN): 63 F presents from home with complaints of increased shortness of air for approximatley 1 week. She spoke to her PCP who prescribed an oral antibiotic for an allergy flair up. Patient wears 3.5 L/NC for COPD. She turned her oxygen up from 3.5 L to 6L since Monday and her oxygen saturation was only 79%-85%. NAD otherwise. History of Present Illness HPI narrative: Patient is a 63-year-old female presenting today with concern for her medical devices not working appropriately at home. She states she felt short of breath and noticed that she did not feel any airflow coming through her oxygen concentrator at which point she changed the tubing and ultimately changed to her secondary device at which point she started to feel better. However she had a home pulse oximeter and could not get her readings anywhere above 79%. This is never been calibrated externally. She called her primary care doctor they called in doxycycline on also asked for steroids but states she did not get any steroids which she states normally make her feel better. She also felt as though she had some allergy type symptoms. She currently states that she feels better than normal has not had increasing cough shortness of breath or wheezing but specifically asked for steroids at the moment. Related Data Home Medications Medication Instructions Recorded Confirmed atorvastatin 80 mg tablet 80 mg PO HS Cholesterol 06/10/18 05/11/23 pantoprazole 40 mg tablet,delayed 40 mg PO HS GERD 06/10/18 05/11/23 release acyclovir 400 mg tablet 400 mg PO DAILY Infection 04/19/19 05/11/23 buspirone 10 mg tablet 10 mg PO BID MOOD 04/06/20 05/11/23 montelukast 10 mg tablet 10 mg PO PM Breathing problems 04/06/20 05/11/23 venlafaxine 75 mg capsule,extended 75 mg PO DAILY 10/26/20 05/11/23 release 24 hr levothyroxine 200 mcg tablet 200 mcg PO DAILY THYROID 10/18/22 05/11/23 amlodipine 5 mg tablet mg PO 05/11/23 05/11/23 levothyroxine 25 mcg tablet mcg PO 05/11/23 05/11/23 Previous Rx's Medication Instructions Recorded albuterol sulfate 90 mcg/actuation 1 inh inhalation QID PRN shortness 08/12/20 aerosol inhaler of breath or wheezing 90 days #8.5 grams fluticasone fur. 200 mcg-umeclid 1 inh inhalation DAILY 90 days #60 08/12/20 62.5 mcg-vilant 25 mcg ea inhalat.powder (Trelegy Ellipta) ipratropium 0.5 mg-albuterol 3 mg 3 ml inhalation QID PRN shortness 08/12/20 (2.5 mg base)/3 mL nebulization of breath or wheezing #90 mL soln losartan 50 mg tablet 50 mg PO DAILY #90 tabs 11/04/22 bisoprolol fumarate 10 mg tablet See Rx Instructions .Route 12/20/22 .COMPLEX #90 tabs verapamil 180 mg 24 hr See Rx Instructions .Route 12/30/22 capsule,extended release .COMPLEX #90 caps albuterol sulfate 90 mcg/actuation 4 inh inhalation Q4H PRN shortness 01/12/23 aerosol inhaler of breath or wheezing #8.5 grams benzonatate 100 mg capsule 100 mg PO TID PRN cough 5 days #20 01/12/23 caps doxycycline hyclate 100 mg capsule 100 mg PO BID 10 days #20 caps 01/12/23 furosemide 20 mg tablet (Lasix) 20 mg PO DAILY #30 tabs 04/20/23 Allergies Allergy/AdvReac Type Severity Reaction Status Date / Time cephalexin [From KEFLEX] Allergy Mild Verified 05/11/23 13:33 Penicillins Allergy Mild Verified 05/11/23 13:33 [facility] Disclaimer: The information contained in this section may have been updated after the patient was seen, as this information can be updated by other users. Medical History Abnormal echocardiogram Anxiety Asthma COPD (chronic obstructive pulmonary disease) Depression Diabetes mellitus, type 2 Dizziness Dyspnea Elevated left ventricular end-diastolic pressure (LVEDP) Family history of heart disease Hyperlipidemia Hypertension Sinus tachycardia Urinary tract infection Social History Smoking Status: Current every day smoker tobacco type: cigarettes packs per day: 1 second hand exposure: Yes alcohol intake: never current occupational status: unemployed Travel in the last 8 weeks: Inside the [place] household members: other housing: house caffeine: Yes ROS Obtained: Yes All systems reviewed & no additional complaints except as documented Physical Exam General General appearance: alert and in no apparent distress Respiratory Respiratory exam: Present wheezes (Scant diffuse expiratory wheezing); Absent normal lung sounds bilaterally, respiratory distress, accessory muscle use or prolonged expiratory phase Cardiovascular Cardiovascular exam: Present regular rate and normal rhythm Neurological Exam Neurological exam: Present alert and oriented X3 Medical Decision Making Papa Inquiry Pt receiving controlled substance: No Vital Signs: 08/14/23 13:10 08/14/23 13:38 Temperature 98 F Temperature Source Oral Pulse Rate 87 Pulse Rate [Left] 90 Respiratory Rate 22 Blood Pressure 107/54 L Blood Pressure [Right Arm] 115/56 L Blood Pressure Mean [Right Arm] 75 Blood Pressure Source [Right Arm] Automatic Cuff Blood Pressure Position [Right Arm] Sitting 02 Sat by Pulse Oximetry 93 L 93 L Oxygen Delivery Method Nasal Cannula Oxygen Flow Rate (LPM) 3.5 Medical Decision Narrative: Very well-appearing 63-year-old female on her home 3 L nasal cannula oxygen saturations in the low 90s which is normal for her at this point. It sounds as if her oxygen concentration device at home was not working appropriately but she does have an alternative that she is currently using. I also believe that her home pulse oximeter was not getting a good reading I advised that she take this back to her doctor's office or back here to have it calibrated or to discard it. She is comfortable going back home she will call Marylu and see if she can have her original oxygen concentrator replaced. She did specifically asked for some steroid she has some scant wheezing was symptomatic a few days ago but do not feel that there is significant harm associated with this so I did give her a dose of dexamethasone. She was already started on doxycycline which she will continue. No further indication for viral workup or alternative explanation workup at this point. She was discharged in stable condition with return precautions emphasized. Critical Care Critical Care Time Critical Care Time: No
[2023-08-14] MEDS: DEXAMETHASONE 4MG/ML 5ML MDV 10 MG PO (14:02)
[2023-08-14 14:05] VITALS: BP 131/70; PULSE 76; RESP 20; TEMP 36.9; O2SAT 93
== END 2023-08-14 14:05 | disposition home or self-care (01) ==
PROVIDERS: Emergency Provider Student in an Organized Health Care Education/Training Program; PCP Nurse Practitioner Family
DX: J44.1 Chronic obstructive pulmonary disease with (acute) exacerbation (principal); Z99.81 Dependence on supplemental oxygen; F17.210 Nicotine dependence, cigarettes, uncomplicated
CPT/HCPCS: 99283

== ENCOUNTER 2023-08-19 21:30 | Emergency (ER) | payer MEDICARE, BC, SELFPAY ==
[2023-08-19 21:31] VITALS: BP 157/84; PULSE 99; RESP 20; TEMP 36.8; O2SAT 93; BMI 42.4
--- NOTE | 2023-08-19 21:47 | CT_ITS ---
PROCEDURE INFORMATION: Exam: CTA Chest With Contrast Exam date and time: 08/19/2023 10:56 PM Age: 63 years old Clinical indication: Shortness of breath; Additional info: Hemoptysis/cp/soa TECHNIQUE: Imaging protocol: Computed tomographic angiography of the chest with contrast. Exam focused on the arteries. 3D rendering (Not supervised by radiologist): MIP and/or 3D reconstructed images were created by the technologist. Radiation optimization: All CT scans at this facility use at least one of these dose optimization techniques: automated exposure control; mA and/or kV adjustment per patient size (includes targeted exams where dose is matched to clinical indication); or iterative reconstruction. Contrast material: ISOVUE; Contrast volume: 70 ml; Contrast route: INTRAVENOUS (IV); COMPARISON: CT ANGIO CHEST 04/19/2019 5:13 PM FINDINGS: Pulmonary arteries: Normal. No pulmonary emboli. Aorta: Unremarkable. No aortic aneurysm. No aortic dissection. Lungs: There are moderate emphysematous changes. There is mild reticular interstitial disease present. Stable scarring is present at the lung apices. There is a suspected right infrahilar mass, measuring approximately 3 cm, occluding the right lower lobe bronchus and causing complete right lower lobe collapse. Pleural spaces: There is a trace right pleural effusion. Heart: Unremarkable. No cardiomegaly. No pericardial effusion. Lymph nodes: Mediastinal lymphadenopathy with right paratracheal lymph node image 47 series 5 measuring 3.3 x 4.1 cm in subcarinal lymph node image 65 measuring 4.5 x 5.6 cm. 1.7 x 2.2 cm left axillary lymph node image 32 series 5. There is a prominent portacaval lymph node image 130 series 5 measuring 1.3 x 2.9 cm. Adrenal glands: There is adrenal hyperplasia noted which is similar to the prior exam however, there is a new 14 mm left adrenal nodule. Bones/joints: Unremarkable. No acute fracture. Soft tissues: Unremarkable. Other findings: Respiratory motion degrades the images. IMPRESSION: 1. Complete collapse of the right lower lobe secondary to right infrahilar mass which measures approximately 3 cm in size. There is associated significant mediastinal lymphadenopathy and a trace right pleural effusion. The finding are consistent with primary lung malignancy with local metastases. 2. New 14 mm left adrenal nodule may represent a metastatic lesion. 3. Enlarged left axillary and portacaval lymph nodes may represent metastatic disease. COMMENTS: The presence of pulmonary emphysema on CT is an independent risk factor for lung cancer. In the absence of a history or active diagnosis of lung cancer, it is recommended that this patient with emphysema be evaluated for enrollment in a low dose CT lung cancer screening program.
--- NOTE | 2023-08-19 21:48 | ECG_ITS ---
APPROVED REPORT Exam: Resting ECG HR:87 bpm ECG Measurements Heart Rate 87 AXES IL 165 P 67 QRSd 94 QRS 28 QT 385 T 55 QTc 429 Conclusion SINUS RHYTHM NORMAL ECG Electronically signed by : OCTAVIANO DWYER, 08/20/2023 00:53:00
--- NOTE | 2023-08-19 21:59 | ED_ITS ---
Discharge Plan Disposition Patient Disposition: Xfer Short-Term Hosp Condition: Fair Prescriptions Prescriptions: No Action venlafaxine 75 mg capsule,extended release 24hr 75 mg PO DAILY furosemide [Lasix] 20 mg tablet 20 mg PO DAILY Qty: 30 5RF amlodipine 5 mg tablet PO levothyroxine 25 mcg tablet PO albuterol sulfate 90 mcg/actuation HFA aerosol inhaler 1 inh INHALATION QID PRN (Reason: shortness of breath or wheezing) 90 Days Qty: 8.5 3RF ipratropium-albuterol 0.5 mg-3 mg(2.5 mg base)/3 mL solution for nebulization 3 ml INHALATION QID PRN (Reason: shortness of breath or wheezing) Qty: 90 6RF Trelegy Ellipta 200-62.5-25 mcg blister with device 1 inh INHALATION DAILY 90 Days Qty: 60 3RF losartan 50 mg tablet 50 mg PO DAILY Qty: 90 3RF bisoprolol fumarate 10 mg tablet See Rx Instructions .ROUTE .COMPLEX Qty: 90 3RF Dose Instruction: TAKE 1 TABLET BY MOUTH DAILY Rx Instructions: TAKE 1 TABLET BY MOUTH DAILY verapamil 180 mg capsule,ext rel. pellets 24 hr See Rx Instructions .ROUTE .COMPLEX Qty: 90 3RF Dose Instruction: TAKE 1 CAPSULE BY MOUTH ONCE DAILY Rx Instructions: TAKE 1 CAPSULE BY MOUTH ONCE DAILY buspirone 10 MG tablet 10 mg PO BID montelukast 10 MG tablet 10 mg PO PM levothyroxine 200 mcg tablet 200 mcg PO DAILY doxycycline hyclate 100 mg capsule 100 mg PO BID 10 Days Qty: 20 0RF benzonatate 100 mg capsule 100 mg PO TID PRN (Reason: cough) 5 Days Qty: 20 0RF albuterol sulfate 90 mcg/actuation HFA aerosol inhaler 4 inh inhalation Q4H PRN (Reason: shortness of breath or wheezing) Qty: 8.5 0RF Rx Instructions: 4 puffs every 4 hours for 48 hours then as needed for shortness of breath or wheezing following atorvastatin 80 MG tablet 80 mg PO HS pantoprazole 40 MG tablet,delayed release (DR/EC) 40 mg PO HS acyclovir 400 MG tablet 400 mg PO DAILY Referrals Follow up/Referrals: Aubrie Garza, [employer] [Primary Care Provider] - See instructions Clinical Impressions Clinical Impression: Lung mass, Compression atelectasis, Pleural effusion, Hemoptysis Discharge ED Provider: Kyler Ramsey General Adult HPI General Chief complaint: Upper Respiratory Infection Stated complaint: Coughing up blood Time Seen by Provider: 08/19/23 21:41 Mode of Arrival: Wheelchair Source of Information: Patient Limitations: No Limitations Description of Symptoms (Recalled from ER Triage Doc. by RN): Pt. presented to ED c/o coughing up blood 10-15 times today. reports blood clots dark in color, denies increased shotness of air. On 3 Liter O2 per NC at baseline History of Present Illness HPI narrative: This patient is a 63-year-old female with a history of COPD on 3.75 L nasal cannula at home, hypertension, hyperlipidemia, morbid obesity, and recent evaluation for COPD exacerbation 08/14/2023 presenting with concern for hemoptysis. Patient states that today, she began coughing up blood 10-15 times a day. She states that it small clots that are dark in color. No increase shortness of breath. She is stable on her home oxygen. She does note some pressure in her chest that she feels like a discomfort, but no other concerns noted. She denies any history of blood clots, clotting disorders, calf pain or swelling. She denies any use of anticoagulation. On medical record review, she was evaluated here 08/14/2023 for upper respiratory symptoms and was prescribed doxycycline and prednisone for upper respiratory infection. She reports she is still taking these. Related Data Home Medications Medication Instructions Recorded Confirmed atorvastatin 80 mg tablet 80 mg PO HS Cholesterol 06/10/18 05/11/23 pantoprazole 40 mg tablet,delayed 40 mg PO HS GERD 06/10/18 05/11/23 release acyclovir 400 mg tablet 400 mg PO DAILY Infection 04/19/19 05/11/23 buspirone 10 mg tablet 10 mg PO BID MOOD 04/06/20 05/11/23 montelukast 10 mg tablet 10 mg PO PM Breathing problems 04/06/20 05/11/23 venlafaxine 75 mg capsule,extended 75 mg PO DAILY 10/26/20 05/11/23 release 24 hr levothyroxine 200 mcg tablet 200 mcg PO DAILY THYROID 10/18/22 05/11/23 amlodipine 5 mg tablet mg PO 05/11/23 05/11/23 levothyroxine 25 mcg tablet mcg PO 05/11/23 05/11/23 Previous Rx's Medication Instructions Recorded albuterol sulfate 90 mcg/actuation 1 inh inhalation QID PRN shortness 08/12/20 aerosol inhaler of breath or wheezing 90 days #8.5 grams fluticasone fur. 200 mcg-umeclid 1 inh inhalation DAILY 90 days #60 08/12/20 62.5 mcg-vilant 25 mcg ea inhalat.powder (Trelegy Ellipta) ipratropium 0.5 mg-albuterol 3 mg 3 ml inhalation QID PRN shortness 08/12/20 (2.5 mg base)/3 mL nebulization of breath or wheezing #90 mL soln losartan 50 mg tablet 50 mg PO DAILY #90 tabs 11/04/22 bisoprolol fumarate 10 mg tablet See Rx Instructions .Route 12/20/22 .COMPLEX #90 tabs verapamil 180 mg 24 hr See Rx Instructions .Route 12/30/22 capsule,extended release .COMPLEX #90 caps albuterol sulfate 90 mcg/actuation 4 inh inhalation Q4H PRN shortness 01/12/23 aerosol inhaler of breath or wheezing #8.5 grams benzonatate 100 mg capsule 100 mg PO TID PRN cough 5 days #20 01/12/23 caps doxycycline hyclate 100 mg capsule 100 mg PO BID 10 days #20 caps 01/12/23 furosemide 20 mg tablet (Lasix) 20 mg PO DAILY #30 tabs 04/20/23 Allergies Allergy/AdvReac Type Severity Reaction Status Date / Time cephalexin [From KEFLEX] Allergy Mild Verified 05/11/23 13:33 Penicillins Allergy Mild Verified 05/11/23 13:33 [facility] Disclaimer: The information contained in this section may have been updated after the patient was seen, as this information can be updated by other users. Medical History Depression Anxiety Urinary tract infection Diabetes mellitus, type 2 Asthma Hyperlipidemia Hypertension Sinus tachycardia Elevated left ventricular end-diastolic pressure (LVEDP) Abnormal echocardiogram Family history of heart disease Dizziness Dyspnea COPD (chronic obstructive pulmonary disease) Social History Smoking Status: Former smoker tobacco type: cigarettes packs per day: 1 second hand exposure: Yes alcohol intake: never current occupational status: unemployed Travel in the last 8 weeks: Inside the [place] household members: other housing: house caffeine: Yes ROS Obtained: Yes All systems reviewed & no additional complaints except as documented Physical Exam General General appearance: alert, in no apparent distress and obese Head Head exam: atraumatic and normocephalic Eye Eye exam: Present normal appearance, PERRL and EOMI ENT ENT exam: Present normal exam, normal oropharynx, mucous membranes moist and normal external ear exam Neck Neck exam: Present normal inspection, full ROM and trachea midline; Absent tenderness Chest Chest inspection: Present normal inspection and symmetric chest wall rise; Absent tenderness Respiratory Respiratory exam: Present normal lung sounds bilaterally and other (Stable on home oxygen with normal breath sounds bilaterally. No increased work of breathing.); Absent respiratory distress, wheezes, stridor or accessory muscle use Cardiovascular Cardiovascular exam: Present regular rate and normal rhythm Abdominal Exam Abdominal exam: Present soft; Absent distention, tenderness or guarding Extremities Exam Extremities exam: Present normal inspection, full ROM and normal capillary refill; Absent tenderness or edema Back Exam Back exam: Present normal inspection and full ROM; Absent tenderness Neurological Exam Neurological exam: Present alert, oriented X3, CN II-XII intact and normal gait; Absent motor sensory deficit Psychiatric Psychiatric exam: Present normal affect and normal mood Skin Skin exam: Present warm and dry Medical Decision Making Medical Records Medical records reviewed: Yes I reviewed the patient's medical records. Papa Inquiry Pt receiving controlled substance: No Vital Signs: 08/19/23 21:31 Temperature 98.2 F Temperature Source Oral Pulse Rate [Right Radial] 99 H Respiratory Rate 20 Blood Pressure [Right Arm] 157/84 H Blood Pressure Mean [Right Arm] 108 Blood Pressure Source [Right Arm] Automatic Cuff Blood Pressure Position [Right Arm] Sitting 02 Sat by Pulse Oximetry 93 L Oxygen Delivery Method Nasal Cannula Lab Data Lab results reviewed: Yes I reviewed the patient's lab results. Lab Results 08/19/23 21:45: WBC 14.0 H, RBC 4.24, Hgb 12.3, Hct 38.9, MCV 91.8, MCH 29.0, M CHC 31.6 L, RDW 14.8, Plt Count 373, MPV 9.0, Neut % (Auto) 73.3, Lymph % (Auto) 19.8, [place] % (Auto) 4.5, Eos % (Auto) 1.6, Baso % (Auto) 0.7, Neut # (Auto) 10.3 H, Lymph # (Auto) 2.8, [place] # (Auto) 0.6, Eos # (Auto) 0.2, Baso # (Auto) 0.1, PT 10.5, INR 0.97, APTT 20.2 L, Sodium 136, Potassium 3.9, Chloride 91 L, Carbon Dioxide 36 H, Anion Gap 12.9, BUN 13, Creatinine 0.80, Estimated Creat Clear 51, Estimated GFR 72, Est GFR ( Amer) 87, Glucose 125 H, Calcium 8.9, Total Bilirubin 0.7, AST 49 H, ALT 34, Alkaline Phosphatase 79, Troponin I < 0.01, T otal Protein 8.3 H, Albumin 4.0, Globulin 4.3 H, Albumin/Globulin Ratio 0.9 L 08/19/23 21:45 08/19/23 21:45 Orders (Tests/Meds): ED MEDICATIONS Generic Name Dose Route Start Last Admin Trade Name Freq PRN Reason Stop Dose Admin Sodium Chloride 10 ml 08/19/23 23:02 08/19/23 23:03 Sodium Chloride 0.9% 10ml Syr (Rad Only) IV 09/18/23 23:01 10 ml NEEDED PRN Administration Maintain IV Site Discontinued Medications Generic Name Dose Route Start Last Admin Trade Name Freq PRN Reason Stop Dose Admin Iopamidol 70 ml 08/19/23 23:02 08/19/23 23:03 Iopamidol-370 (76%);100ml Bottle IV 08/19/23 23:03 70 ml ONCE ONE Administration Sodium Chloride 50 ml 08/19/23 23:02 08/19/23 23:03 0.9 % Sodium Chloride 50 Ml Vial IV 08/19/23 23:03 50 ml ONCE ONE Administration ORDERS Category Date Time Status CT angio chest PE protocol Stat Cat Scan 08/19/23 21:47 Completed Activated Partial Thrombo Time Stat Lab 08/19/23 21:45 Completed Complete Blood Count Auto Diff Stat Lab 08/19/23 21:45 Completed Comprehensive Metabolic Panel Stat Lab 08/19/23 21:45 Completed Prothrombin Time INR Stat Lab 08/19/23 21:45 Completed Troponin I Q3H Lab 08/20/23 01:00 Ordered Troponin I Q3H Lab 08/20/23 04:00 Ordered Troponin I Stat Lab 08/19/23 21:45 Completed ECG Data Tracing #1: I reviewed this ECG and interpreted as documented below: Normal sinus rhythm with a ventricular rate of [address] changes concerning for ischemia. Normal axis and intervals. ECG initial impression date: 08/19/23 ECG initial impression time: 22:05 HEART Score History (anamnesis): Slightly suspicious ECG: Normal Age: 45-65 years Risk factors: 3 or more risk factors Medical Decision Narrative: In summary, this patient is a 63-year-old female presenting to the Emergency Department for evaluation of hemoptysis. Differential diagnoses considered include but are not limited to bronchitis, bronchiectasis, PE, pneumonia, respiratory failure. Ruling out the most morbid conditions drove assessment. It should be noted patient's history includes COPD on 3 L nasal cannula which is not at goal therapy, as she is currently being treated for COPD exacerbation. This complicates all aspects of care by increasing patient's risk for morbidity. I reviewed patient's past medical records and noted recent evaluation for this as per HPI as well as prior evaluations by cardiology in the past. On exam, the patient is nontoxic-appearing with no increased work of breathing. She is alert and oriented and GCS of 15. She is doing well on her home oxygen. Workup included CBC, CMP, troponin, PT, PTT, EKG, and CTA PE protocol. I independently interpreted CTA prior to the radiologist read and noted lung mass with pleural effusion. Please see their read for final interpretation. Radiology notes concern for spiculated infrahilar mass that is causing compressive atelectasis with collapse of her right lower lobe and pleural effusion. Labs were obtained that demonstrated mild leukocytosis in the setting of steroid use without other acutely concerning abnormality. On reassessment, patient is resting comfortably. I had a long discussion with her regarding the findings. She stated she is not sure if she would ever want to undergo cancer treatment, as she watched her brother go through that. I advised that with the collapse of her lung and her significant pleural effusion as well as her symptoms consisting of moderate hemoptysis, I would recommend transfer for at least evaluation to come up with a further plan. She is agreeable. I had an indirect discussion with Dr. Wu at [facility] who accepted the patient for transfer for further evaluation and management. She was transported by EMS in stable condition Critical Care Critical Care Time Critical Care Time: No
[2023-08-19 22:13] LABS: Basophils # 0.1 K/mm3 (0-0.2); Basophils % 0.7 % (0.1-2.0); Eosinophils # 0.2 K/mm3 (0.0-0.4); Eosinophils % 1.6 % (0.1-12.0); Hematocrit 38.9 % (37.0-47.0); Hemoglobin 12.3 g/dL (12.2-16.2); Lymphocytes # 2.8 K/mm3 (0.7-4.5); Lymphocytes % 19.8 % (10-50); Mean Corpuscular HGB Conc 31.6 g/dL (31.8-35.4); Mean Corpuscular Volume 91.8 fl (81-99); Monocytes # 0.6 K/mm3 (0.1-1.0); Monocytes % 4.5 % (1.7-9.3); Neutrophils # 10.3 K/mm3 (1.8-7.8); Neutrophils % 73.3 % (37.0-80.0); Platelet Count 373 K/mm3 (142-424); Red Blood Count 4.24 M/mm3 (4.20-5.40); Red Cell Distribution Width 14.8 % (11.5-17.5)
[2023-08-19 22:16] LABS: Alanine Aminotransferase 34 U/L (12-78); Albumin/Globulin Ratio 0.9 (1.1-1.8); Alkaline Phosphatase 79 U/L (38-126); Aspartate Amino Transferase 49 U/L (14-36); Bilirubin,Total 0.7 mg/dl (0.2-1.3); Blood Urea Nitrogen 13 mg/dl (7-17); Calcium 8.9 mg/dl (8.4-10.2); Chloride 91 mmol/L (98-107); Creatinine Clearance Estimated 51 mL/min (50-200); Estimated Glomerular Filt Rate 72 ml/min (>60); GFR (African American) 87 ML/MIN (>60); Globulin 4.3 g/dL (1.3-3.2); Glucose 125 mg/dl (74-100); Potassium 3.9 mmoL/L (3.5-5.1); Sodium 136 mmol/L (136-145); Total Protein,Serum 8.3 g/dl (6.3-8.2)
[2023-08-19 22:23] LABS: Anion Gap 12.9 mEq/L (5-15); Carbon Dioxide 36 mmol/L (22.0-30.0)
[2023-08-19 22:44] LABS: Troponin I < 0.01 ng/ml (0.00-0.034)
[2023-08-19 22:51] LABS: Activated Partial Thrombo Time 20.2 seconds (22.8-30.6); INR 0.97 (0.9-1.1); Prothrombin Time 10.5 seconds (10.1-12.5)
[2023-08-19] MEDS: IOPAMIDOL-370 (76%);100ML BOTTLE 70 ML IV (23:03)
[2023-08-19] MEDS: SODIUM CHLORIDE 0.9% 10ML SYR (RAD ONLY) 10 ML IV (23:03)
[2023-08-19] MEDS: 0.9 % SODIUM CHLORIDE 50 ML VIAL IV (23:03)
--- NOTE | 2023-08-20 00:15 | PC.NURSE ---
Contacted in regards to a transfer. They will call back.
--- NOTE | 2023-08-20 01:14 | PC.NURSE ---
Report given to Debbie BERMUDEZ at [facility].
[2023-08-20 01:43] VITALS: BP 143/71; PULSE 87; RESP 17; TEMP 36.6; O2SAT 95
== END 2023-08-20 01:46 | disposition short-term general hospital (02) ==
PROVIDERS: Emergency Medicine; Emergency Provider Emergency Medicine; PCP Nurse Practitioner Family
DX: R04.2 Hemoptysis (principal); J98.11 Atelectasis; J90 Pleural effusion, not elsewhere classified; R91.8 Other nonspecific abnormal finding of lung field; R07.89 Other chest pain; J44.9 Chronic obstructive pulmonary disease, unspecified; I10 Essential (primary) hypertension; E78.5 Hyperlipidemia, unspecified; Z99.81 Dependence on supplemental oxygen; Z87.891 Personal history of nicotine dependence; E66.01 Morbid (severe) obesity due to excess calories; Z68.41 Body mass index [BMI] 40.0-44.9, adult
CPT/HCPCS: 71275; 80053; 84484; 85025; 85610; 85730; 93005; 99284; Q9967

== ENCOUNTER 2023-09-14 12:55 | Outpatient (CLI) | payer MEDICARE, BC, SELFPAY ==
[2023-09-14 13:02] VITALS: BMI 41.8
--- NOTE | 2023-09-14 13:09 | PC.NURSE ---
1309-collected labs via venipuncture stick in right ac with butterfly needle;pt d/c home md to call with results
[2023-09-14 13:20] LABS: Basophils % 0.8 % (0.1-2.0); Eosinophils % 0.8 % (0.1-12.0); Hematocrit 31.4 % (37.0-47.0); Lymphocytes # 1.4 K/mm3 (0.7-4.5); Lymphocytes % 71.5 % (10-50); MANUAL DIFFERENTIAL MANUAL DIFFERENTIAL (MANUAL DIFF); Mean Corpuscular Hemoglobin 29.7 pg (27.0-31.2); Mean Corpuscular Volume 92.7 fl (81-99); Mean Platelet Volume 9.2 fl (7.4-10.4); Monocytes # 0.1 K/mm3 (0.1-1.0); Monocytes % 4.2 % (1.7-9.3); Neutrophils # 0.5 K/mm3 (1.8-7.8); Neutrophils % 22.8 % (37.0-80.0); Platelet Count 165 K/mm3 (142-424); Red Blood Count 3.38 M/mm3 (4.20-5.40); Red Cell Distribution Width 15.6 % (11.5-17.5)
[2023-09-14 13:30] LABS: Chloride 97 mmol/L (98-107); Potassium 3.4 mmoL/L (3.5-5.1); Sodium 138 mmol/L (136-145)
[2023-09-14 13:33] LABS: Alanine Aminotransferase 68 U/L (12-78); Albumin Level 3.7 g/dl (3.5-5.0); Albumin/Globulin Ratio 1.2 (1.1-1.8); Alkaline Phosphatase 103 U/L (38-126); Anion Gap 7.4 mEq/L (5-15); Aspartate Amino Transferase 35 U/L (14-36); Bilirubin,Total 0.2 mg/dl (0.2-1.3); Blood Urea Nitrogen 9 mg/dl (7-17); Carbon Dioxide 37 mmol/L (22.0-30.0); Creatinine Clearance Estimated 51 mL/min (50-200); Estimated Glomerular Filt Rate 72 ml/min (>60); GFR (African American) 87 ML/MIN (>60); Total Protein,Serum 6.7 g/dl (6.3-8.2)
[2023-09-14 13:34] LABS: Glucose 138 mg/dl (74-100)
[2023-09-14 13:52] LABS: Hypochromasia 1+; Lymphocytes % 72 % (10-50); Monocytes % 4 % (2-9); Neutrophils % 20 % (42-76); Platelet Estimate Normal; Total Cells Counted 25
== END 2023-09-14 13:10 | disposition home or self-care (01) ==
LOC: INF 12:56
PROVIDERS: PCP Internal Medicine Adolescent Medicine; Visit Provider Internal Medicine Medical Oncology
DX: C34.31 Malignant neoplasm of lower lobe, right bronchus or lung (principal); F17.290 Nicotine dependence, other tobacco product, uncomplicated
CPT/HCPCS: 36415; 80053; 85007; 85025; 85027

== ENCOUNTER 2023-09-25 09:59 | Outpatient (CLI) | payer MEDICARE, BC, SELFPAY ==
[2023-09-25] VITALS (14 sets, daily range): BP systolic 127–154; BP diastolic 63–88; PULSE 78–102; RESP 18–19; TEMP 36.4; O2SAT 99; BMI 41.8
[2023-09-25 10:31] LABS: Basophils % 0.4 % (0.1-2.0); Eosinophils % 0.3 % (0.1-12.0); Hematocrit 29.8 % (37.0-47.0); Hemoglobin 9.9 g/dL (12.2-16.2); Lymphocytes # 1.3 K/mm3 (0.7-4.5); Lymphocytes % 15.8 % (10-50); Mean Corpuscular HGB Conc 33.3 g/dL (31.8-35.4); Mean Corpuscular Volume 90.3 fl (81-99); Mean Platelet Volume 7.1 fl (7.4-10.4); Monocytes # 0.4 K/mm3 (0.1-1.0); Monocytes % 5.2 % (1.7-9.3); Neutrophils # 6.3 K/mm3 (1.8-7.8); Neutrophils % 78.3 % (37.0-80.0); Platelet Count 595 K/mm3 (142-424); Red Cell Distribution Width 17.2 % (11.5-17.5)
[2023-09-25 10:36] LABS: Chloride 90 mmol/L (98-107); Potassium 3.7 mmoL/L (3.5-5.1); Sodium 131 mmol/L (136-145)
[2023-09-25 10:39] LABS: Alanine Aminotransferase 31 U/L (12-78); Albumin Level 3.7 g/dl (3.5-5.0); Albumin/Globulin Ratio 1.2 (1.1-1.8); Alkaline Phosphatase 105 U/L (38-126); Anion Gap 8.7 mEq/L (5-15); Aspartate Amino Transferase 34 U/L (14-36); Bilirubin,Total 0.4 mg/dl (0.2-1.3); Blood Urea Nitrogen 6 mg/dl (7-17); Carbon Dioxide 36 mmol/L (22.0-30.0); Creatinine Clearance Estimated 51 mL/min (50-200); Estimated Glomerular Filt Rate 72 ml/min (>60); GFR (African American) 87 ML/MIN (>60); Globulin 3.2 g/dL (1.3-3.2); Total Protein,Serum 6.9 g/dl (6.3-8.2)
[2023-09-25 10:40] LABS: Calcium 8.7 mg/dl (8.4-10.2); Glucose 133 mg/dl (74-100)
[2023-09-25] MEDS: ONDANSETRON 4MG ODT 16 MG (11:10)
[2023-09-25] MEDS: DEXAMETHASONE 4MG TABLET 12 MG (11:10)
[2023-09-25] MEDS: 0.9 % SODIUM CHLORIDE 100 ML IV (11:10)
[2023-09-25] MEDS: APREPITANT 125MG/80MG TRIFOLD PACK 1 PACKET PO (11:10)
[2023-09-25] MEDS: SODIUM CHLORIDE 0.9% IV ×3 (11:43→13:34)
[2023-09-25] MEDS: ETOPOSIDE IV (11:43)
[2023-09-25] MEDS: CARBOPLATIN IV (12:52)
[2023-09-25] MEDS: ATEZOLIZUMAB IV (13:34)
== END 2023-09-25 15:00 | disposition home or self-care (01) ==
LOC: INF 10:00
PROVIDERS: PCP Internal Medicine Adolescent Medicine; Visit Provider Internal Medicine Medical Oncology
DX: C34.31 Malignant neoplasm of lower lobe, right bronchus or lung (principal); F17.290 Nicotine dependence, other tobacco product, uncomplicated; Z51.11 Encounter for antineoplastic chemotherapy; Z79.634 Long term (current) use of topoisomerase inhibitor; Z79.899 Other long term (current) drug therapy
CPT/HCPCS: 80053; 85025; 96413; 96415; 96417; J8501; J9022; J9045; J9181

== ENCOUNTER 2023-09-26 10:11 | Outpatient (CLI) | payer MEDICARE, BC, SELFPAY ==
[2023-09-26] MEDS: ONDANSETRON 4MG ODT 16 MG (10:30)
[2023-09-26] MEDS: [UNRECOGNIZED DRUG - SUPPLY] 1 EACH NOTAPPLIC (10:37)
[2023-09-26] MEDS: 0.9 % SODIUM CHLORIDE 50 ML 100 ML IV (10:38)
[2023-09-26] MEDS: ETOPOSIDE IV (11:00)
[2023-09-26] MEDS: SODIUM CHLORIDE 0.9% IV (11:00)
[2023-09-26 11:07] VITALS: BP 130/63; PULSE 80; RESP 18; TEMP 36.6; O2SAT 95
[2023-09-26 11:15] VITALS: BP 139/67; PULSE 77; RESP 18
[2023-09-26 11:30] VITALS: BP 133/74; PULSE 75; RESP 18
[2023-09-26 11:45] VITALS: BP 146/69; PULSE 75; RESP 18
[2023-09-26 12:20] VITALS: BP 138/73; PULSE 76; RESP 18; O2SAT 98
== END 2023-09-26 12:20 | disposition home or self-care (01) ==
LOC: INF 10:12
PROVIDERS: PCP Internal Medicine Adolescent Medicine; Visit Provider Internal Medicine Medical Oncology
DX: C34.31 Malignant neoplasm of lower lobe, right bronchus or lung (principal); F17.290 Nicotine dependence, other tobacco product, uncomplicated; Z79.634 Long term (current) use of topoisomerase inhibitor; Z51.11 Encounter for antineoplastic chemotherapy
CPT/HCPCS: 96413; J9181

== ENCOUNTER 2023-09-27 09:57 | Outpatient (CLI) | payer MEDICARE, BC, SELFPAY ==
[2023-09-27] MEDS: ONDANSETRON 4MG ODT 16 MG SL (10:15)
[2023-09-27] MEDS: SODIUM CHLORIDE 0.9% 50ML BAG 50 ML IV (10:24)
[2023-09-27] MEDS: SODIUM CHLORIDE 0.9% 10ML FLUSH SYRINGE 10 ML IV (10:24)
[2023-09-27] MEDS: SODIUM CHLORIDE 0.9% IV (10:41)
[2023-09-27] MEDS: ETOPOSIDE IV (10:41)
[2023-09-27 10:45] VITALS: BP 131/68; PULSE 78; RESP 18; TEMP 36.6; O2SAT 97
[2023-09-27 11:00] VITALS: BP 116/72; PULSE 77
[2023-09-27 11:15] VITALS: BP 124/70; PULSE 76
[2023-09-27 11:30] VITALS: BP 128/63; PULSE 72
[2023-09-27 11:50] VITALS: BP 131/64; PULSE 75
--- NOTE | 2023-09-27 12:55 | DIET.NUTRFU ---
Received consult for 1st dose of chemo, left message and contact information for any dietary concerns. Reviewing chart she has lost weight down 6% in 5moonths with CBW 113kg.
== END 2023-09-27 12:00 | disposition home or self-care (01) ==
LOC: INF 09:58
PROVIDERS: PCP Internal Medicine Adolescent Medicine; Visit Provider Internal Medicine Medical Oncology
DX: C34.31 Malignant neoplasm of lower lobe, right bronchus or lung (principal); F17.290 Nicotine dependence, other tobacco product, uncomplicated; Z79.634 Long term (current) use of topoisomerase inhibitor; Z51.11 Encounter for antineoplastic chemotherapy
CPT/HCPCS: 96413; J9181

== ENCOUNTER 2023-10-16 09:00 | Outpatient (CLI) | payer MEDICARE, BC, SELFPAY ==
--- NOTE | 2023-10-16 09:06 | CT_ITS ---
FINAL REPORT TECHNIQUE: After the administration of intravenous contrast, axial images through the chest were performed by computed tomography.This study was performed with techniques to keep radiation doses as low as reasonably achievable, (ALARA). Individualized dose reduction techniques using automated exposure control or adjustment of mA and/or kV according to the patient''s size were employed. CLINICAL HISTORY: lung cancer, follow-up COMPARISON: 08/19/2023 FINDINGS: Emphysema is noted. There is resolved right lower lobe collapse compared to the prior exam. There is a soft tissue mass of the right subcarinal and right infrahilar regions which is significantly improved. The residual lesion measures 26 x 17 mm and previously measured 59 x 37 mm. There is necrotic appearing lower right paratracheal adenopathy measuring 26 x 19 mm which previously measured 48 x 35 mm. Other right paratracheal lymph nodes show significant improvement. A small pericardial effusion has increased from the prior exam. There is left axillary adenopathy measuring 10 x 9 mm that previously measured 22 x 18 mm. IMPRESSION: 1. Significant improvement in right hilar/mediastinal mass with resolved postobstructive changes. 2. Other sites of adenopathy, improved. 3. No new sites of disease. Reviewed, Interpreted and Dictated by Stone Donnelly MD Transcribed by Gretchen Diaz Authenticated and [facility]
--- NOTE | 2023-10-16 09:06 | CT_ITS ---
FINAL REPORT TECHNIQUE: Oral and IV contrast enhanced exam. This study was performed with techniques to keep radiation doses as low as reasonably achievable (ALARA). Individualized dose reduction techniques using automated exposure control or adjustment of mA and/or kV according to the patient's size were employed. CLINICAL HISTORY: LUNG CANCER FINDINGS: Abdomen: There is mild bilateral adrenal enlargement which is nonspecific. Right adrenal thickening measures up to 10 mm. This is unchanged and likely represents hyperplasia. There is a new hyperdense nodule in the left adrenal gland measuring 7 mm. This is nonspecific. The gallbladder is unremarkable. Remaining solid abdominal organs are unremarkable. There is an enlarged central abdominal wall hernia containing fat. No bowel obstruction is present. There is no free air. No fluid collection is seen. There is no adenopathy. Pelvis: The appendix is normal. The uterus and ovaries are unremarkable. No bowel wall thickening is present. There is no free fluid. There is a small right inguinal hernia containing fat. IMPRESSION: Interval development of nonspecific 7 mm left adrenal nodule could represent metastatic disease, including treated metastasis, or an adenoma. Continued follow-up is recommended. Reviewed, Interpreted and Dictated by Stone Donnelly MD Transcribed by Gretchen Diaz Authenticated and [facility]
[2023-10-16] MEDS: BARIUM SULFATE(READI-CAT2);450ML BOTTLE 450 ML PO (09:47)
[2023-10-16] MEDS: IOPAMIDOL-370 (76%);100ML BOTTLE 75 ML IV (09:47)
[2023-10-16] MEDS: SODIUM CHLORIDE 0.9% 10ML SYR (RAD ONLY) 10 ML IV (09:47)
== END 2023-10-16 23:59 | disposition home or self-care (01) ==
LOC: RAD 09:01
PROVIDERS: PCP Internal Medicine Adolescent Medicine; Visit Provider Internal Medicine Medical Oncology
DX: C34.91 Malignant neoplasm of unspecified part of right bronchus or lung (principal); E11.9 Type 2 diabetes mellitus without complications; Z79.899 Other long term (current) drug therapy
CPT/HCPCS: 71260; 74177; Q9967

== ENCOUNTER 2023-10-17 08:55 | Outpatient (CLI) | payer MEDICARE, BC, SELFPAY ==
[2023-10-17 09:13] VITALS: BMI 41.8
[2023-10-17 09:30] LABS: Basophils # 0.1 K/mm3 (0-0.2); Basophils % 0.8 % (0.1-2.0); Eosinophils % 0.2 % (0.1-12.0); Hematocrit 26.9 % (37.0-47.0); Hemoglobin 8.7 g/dL (12.2-16.2); Lymphocytes # 2.4 K/mm3 (0.7-4.5); Lymphocytes % 27.1 % (10-50); Mean Corpuscular HGB Conc 32.3 g/dL (31.8-35.4); Mean Corpuscular Hemoglobin 29.9 pg (27.0-31.2); Mean Corpuscular Volume 92.5 fl (81-99); Mean Platelet Volume 8.2 fl (7.4-10.4); Monocytes # 0.8 K/mm3 (0.1-1.0); Monocytes % 8.7 % (1.7-9.3); Neutrophils # 5.7 K/mm3 (1.8-7.8); Neutrophils % 63.3 % (37.0-80.0); Platelet Count 605 K/mm3 (142-424); Red Cell Distribution Width 19.9 % (11.5-17.5)
[2023-10-17 09:38] LABS: Alanine Aminotransferase 45 U/L (12-78); Albumin Level 3.9 g/dl (3.5-5.0); Albumin/Globulin Ratio 1.1 (1.1-1.8); Alkaline Phosphatase 84 U/L (38-126); Anion Gap 10.3 mEq/L (5-15); Aspartate Amino Transferase 40 U/L (14-36); Bilirubin,Total 0.4 mg/dl (0.2-1.3); Blood Urea Nitrogen 14 mg/dl (7-17); Calcium 9.1 mg/dl (8.4-10.2); Carbon Dioxide 32 mmol/L (22.0-30.0); Chloride 98 mmol/L (98-107); Creatinine Clearance Estimated 51 mL/min (50-200); Estimated Glomerular Filt Rate 63 ml/min (>60); GFR (African American) 76 ML/MIN (>60); Globulin 3.7 g/dL (1.3-3.2); Glucose 122 mg/dl (74-100); Potassium 3.3 mmoL/L (3.5-5.1); Sodium 137 mmol/L (136-145); Total Protein,Serum 7.6 g/dl (6.3-8.2)
[2023-10-17] MEDS: APREPITANT 125MG/80MG TRIFOLD PACK 1 PACKET PO (10:09)
[2023-10-17] MEDS: DEXAMETHASONE 4MG TABLET 12 MG (10:09)
[2023-10-17] MEDS: ONDANSETRON 4MG ODT 16 MG (10:09)
[2023-10-17] MEDS: 0.9 % SODIUM CHLORIDE 100 ML 25 ML IV (10:10)
[2023-10-17] MEDS: 0.9 % SODIUM CHLORIDE 100 ML 200 ML IV (10:41)
[2023-10-17] MEDS: ATEZOLIZUMAB IV (10:41)
[2023-10-17] MEDS: SODIUM CHLORIDE 0.9% IV ×3 (10:41→13:01)
[2023-10-17 10:45] VITALS: BP 131/65; PULSE 81; RESP 18; TEMP 36.8; O2SAT 99
[2023-10-17 11:34] LABS: Total Iron Binding Capacity 284 ug/dL (265-497)
[2023-10-17 11:50] VITALS: BP 130/62; PULSE 85
[2023-10-17] MEDS: ETOPOSIDE IV (11:52)
[2023-10-17 11:55] VITALS: BP 131/61; PULSE 87
[2023-10-17 12:02] LABS: Ferritin 201 ng/ml (11.1-264)
[2023-10-17 13:00] VITALS: BP 137/72; PULSE 84
[2023-10-17] MEDS: CARBOPLATIN IV (13:01)
[2023-10-17 13:40] VITALS: BP 135/83; PULSE 87
[2023-10-17 16:19] LABS: Iron 58 ug/dL (37-170)
== END 2023-10-17 13:50 | disposition home or self-care (01) ==
PROVIDERS: PCP Internal Medicine Adolescent Medicine; Visit Provider Internal Medicine Medical Oncology
DX: C34.31 Malignant neoplasm of lower lobe, right bronchus or lung (principal); F17.290 Nicotine dependence, other tobacco product, uncomplicated; Z79.634 Long term (current) use of topoisomerase inhibitor; Z79.899 Other long term (current) drug therapy; Z51.11 Encounter for antineoplastic chemotherapy; Z51.12 Encounter for antineoplastic immunotherapy
CPT/HCPCS: 80053; 82728; 83540; 83550; 85025; 96413; 96415; 96417; J8501; J9022; J9045; J9181

== ENCOUNTER 2023-10-18 10:33 | Outpatient (CLI) | payer MEDICARE, BC, SELFPAY ==
[2023-10-18] MEDS: SODIUM CHLORIDE 0.9% 10ML FLUSH SYRINGE 10 ML IV (11:00)
[2023-10-18] MEDS: ONDANSETRON 4MG ODT 16 MG SL (11:00)
[2023-10-18] MEDS: SODIUM CHLORIDE 0.9% IV (11:30)
[2023-10-18] MEDS: ETOPOSIDE IV (11:30)
[2023-10-18 11:40] VITALS: BP 141/68; PULSE 78; RESP 18; TEMP 36.7; O2SAT 100
[2023-10-18] MEDS: 0.9 % SODIUM CHLORIDE 50 ML 25 ML IV (11:40)
[2023-10-18 11:55] VITALS: BP 123/62; PULSE 75
[2023-10-18 12:10] VITALS: BP 131/56; PULSE 71
[2023-10-18 12:25] VITALS: BP 136/64; PULSE 75
[2023-10-18 12:40] VITALS: BP 129/66; PULSE 74
[2023-10-18 12:50] VITALS: BP 131/63; PULSE 75
== END 2023-10-18 13:10 | disposition home or self-care (01) ==
LOC: INF 10:35
PROVIDERS: PCP Internal Medicine Medical Oncology; Visit Provider Internal Medicine Medical Oncology
DX: Z51.11 Encounter for antineoplastic chemotherapy (principal); C34.90 Malignant neoplasm of unspecified part of unspecified bronchus or lung; Z79.899 Other long term (current) drug therapy
CPT/HCPCS: 96413; J9181

== ENCOUNTER 2023-10-19 10:41 | Outpatient (CLI) | payer MEDICARE, BC, SELFPAY ==
[2023-10-19] MEDS: SODIUM CHLORIDE 0.9% 50ML BAG 50 ML IV (10:50)
[2023-10-19] MEDS: ONDANSETRON 4MG ODT 16 MG SL (10:50)
[2023-10-19] MEDS: SODIUM CHLORIDE 0.9% 10ML FLUSH SYRINGE 10 ML IV (10:50)
[2023-10-19] MEDS: ETOPOSIDE IV (11:16)
[2023-10-19] MEDS: SODIUM CHLORIDE 0.9% IV (11:16)
[2023-10-19 11:25] VITALS: BP 132/59; PULSE 81; RESP 18; TEMP 36.7; O2SAT 100
[2023-10-19 11:40] VITALS: BP 129/64; PULSE 79
[2023-10-19 11:55] VITALS: BP 132/62; PULSE 84
[2023-10-19 12:10] VITALS: BP 133/67; PULSE 84
[2023-10-19 12:25] VITALS: BP 138/56; PULSE 87
== END 2023-10-19 12:35 | disposition home or self-care (01) ==
LOC: INF 10:42
PROVIDERS: Visit Provider Internal Medicine Medical Oncology
DX: Z51.11 Encounter for antineoplastic chemotherapy (principal); Z79.899 Other long term (current) drug therapy; C34.90 Malignant neoplasm of unspecified part of unspecified bronchus or lung
CPT/HCPCS: 96413; J9181

== ENCOUNTER 2023-11-07 08:53 | Outpatient (CLI) | payer MEDICARE, BC, SELFPAY ==
[2023-11-07] VITALS (19 sets, daily range): BP systolic 111–131; BP diastolic 52–80; PULSE 81–93; RESP 16–20; TEMP 36.3–36.8; O2SAT 97–99; BMI 38.9
[2023-11-07 09:23] LABS: Basophils % 0.4 % (0.1-2.0); Eosinophils % 0.7 % (0.1-12.0); Hematocrit 22.2 % (37.0-47.0); Hemoglobin 7.1 g/dL (12.2-16.2); Lymphocytes # 1.7 K/mm3 (0.7-4.5); Lymphocytes % 25.3 % (10-50); Mean Corpuscular Hemoglobin 31.6 pg (27.0-31.2); Mean Corpuscular Volume 98.8 fl (81-99); Mean Platelet Volume 7.7 fl (7.4-10.4); Monocytes # 0.5 K/mm3 (0.1-1.0); Monocytes % 7.1 % (1.7-9.3); Neutrophils # 4.4 K/mm3 (1.8-7.8); Neutrophils % 66.5 % (37.0-80.0); Platelet Count 369 K/mm3 (142-424); Red Blood Count 2.24 M/mm3 (4.20-5.40); Red Cell Distribution Width 23.3 % (11.5-17.5); White Blood Count 6.6 K/mm3 (4.8-10.8)
[2023-11-07 09:31] LABS: Albumin Level 3.9 g/dl (3.5-5.0); Chloride 97 mmol/L (98-107); Potassium 3.3 mmoL/L (3.5-5.1); Sodium 135 mmol/L (136-145)
[2023-11-07 09:33] LABS: Blood Urea Nitrogen 3 mg/dl (7-17); Creatinine Clearance Estimated 95 mL/min (50-200); Estimated Glomerular Filt Rate 63 ml/min (>60); GFR (African American) 76 ML/MIN (>60)
[2023-11-07 09:34] LABS: Alanine Aminotransferase 34 U/L (12-78); Albumin/Globulin Ratio 1.1 (1.1-1.8); Alkaline Phosphatase 95 U/L (38-126); Anion Gap 9.3 mEq/L (5-15); Aspartate Amino Transferase 35 U/L (14-36); Bilirubin,Total 0.6 mg/dl (0.2-1.3); Calcium 8.3 mg/dl (8.4-10.2); Carbon Dioxide 32 mmol/L (22.0-30.0); Globulin 3.4 g/dL (1.3-3.2); Glucose 131 mg/dl (74-100); Total Protein,Serum 7.3 g/dl (6.3-8.2)
[2023-11-07 10:04] LABS: Thyroid Stimulating Hormone 0.13 uIU/mL (0.465-4.68)
[2023-11-07] MEDS: 0.9 % SODIUM CHLORIDE 250 ML 25 ML IV (10:15)
== END 2023-11-07 23:59 | disposition home or self-care (01) ==
LOC: INF 08:54
PROVIDERS: PCP Internal Medicine Adolescent Medicine; Visit Provider Internal Medicine Medical Oncology
DX: C34.90 Malignant neoplasm of unspecified part of unspecified bronchus or lung (principal); Z79.899 Other long term (current) drug therapy
CPT/HCPCS: 36430; 80053; 84443; 85025; 86850; P9016

== ENCOUNTER 2023-11-08 09:47 | Outpatient (CLI) | payer MEDICARE, BC, SELFPAY ==
[2023-11-08] VITALS (13 sets, daily range): BP systolic 126–144; BP diastolic 58–73; PULSE 79–88; RESP 18; TEMP 36.7; O2SAT 98
== END 2023-11-08 13:30 | disposition home or self-care (01) ==
LOC: INF 09:48
PROVIDERS: PCP Internal Medicine Adolescent Medicine; Visit Provider Internal Medicine Medical Oncology
DX: Z51.11 Encounter for antineoplastic chemotherapy (principal); C34.11 Malignant neoplasm of upper lobe, right bronchus or lung; C79.31 Secondary malignant neoplasm of brain; Z79.634 Long term (current) use of topoisomerase inhibitor; Z79.899 Other long term (current) drug therapy; Z87.891 Personal history of nicotine dependence
CPT/HCPCS: 96413; 96415; 96417; J8501; J8540; J9022; J9045; J9181; Q0162

== ENCOUNTER 2023-11-09 09:37 | Outpatient (CLI) | payer MEDICARE, BC, SELFPAY ==
[2023-11-09] MEDS: ONDANSETRON 4MG ODT 16 MG SL (09:58)
[2023-11-09] MEDS: SODIUM CHLORIDE 0.9% 50ML BAG 50 ML IV (09:59)
[2023-11-09] MEDS: SODIUM CHLORIDE 0.9% IV (10:29)
[2023-11-09] MEDS: ETOPOSIDE IV (10:29)
[2023-11-09 10:35] VITALS: BP 106/56; PULSE 83; RESP 18; TEMP 36.8; O2SAT 98
[2023-11-09 10:50] VITALS: BP 125/66; PULSE 71
[2023-11-09 11:05] VITALS: BP 125/63; PULSE 74
[2023-11-09 11:20] VITALS: BP 129/70; PULSE 76
[2023-11-09 11:40] VITALS: BP 125/66; PULSE 71
== END 2023-11-09 23:59 | disposition home or self-care (01) ==
LOC: INF 09:38
PROVIDERS: PCP Internal Medicine Adolescent Medicine; Visit Provider Internal Medicine Medical Oncology
DX: Z51.11 Encounter for antineoplastic chemotherapy (principal); C34.90 Malignant neoplasm of unspecified part of unspecified bronchus or lung; Z79.899 Other long term (current) drug therapy
CPT/HCPCS: 96413; J7030; J9181; Q0162

== ENCOUNTER 2023-11-10 09:37 | Outpatient (CLI) | payer MEDICARE, BC, SELFPAY ==
[2023-11-10] MEDS: ONDANSETRON 4MG ODT 16 MG SL (09:45)
[2023-11-10] MEDS: SODIUM CHLORIDE 0.9% 50ML BAG 50 ML IV (09:45)
[2023-11-10] MEDS: SODIUM CHLORIDE 0.9% IV (10:18)
[2023-11-10] MEDS: ETOPOSIDE IV (10:18)
[2023-11-10 10:25] VITALS: BP 128/65; PULSE 85; RESP 18; TEMP 36.7; O2SAT 98
[2023-11-10] MEDS: SODIUM CHLORIDE 0.9% 10ML FLUSH SYRINGE 10 ML IV (10:28)
[2023-11-10 10:40] VITALS: BP 131/72; PULSE 84
[2023-11-10 10:55] VITALS: BP 142/73; PULSE 79
[2023-11-10 11:10] VITALS: BP 130/68; PULSE 82
[2023-11-10 11:25] VITALS: BP 134/75; PULSE 81
== END 2023-11-10 11:35 | disposition home or self-care (01) ==
LOC: INF 09:39
PROVIDERS: PCP Internal Medicine Adolescent Medicine; Visit Provider Internal Medicine Medical Oncology
DX: C34.90 Malignant neoplasm of unspecified part of unspecified bronchus or lung (principal)
CPT/HCPCS: 96413; J7030; J9181; Q0162

== ENCOUNTER 2023-11-23 09:04 | Outpatient (CLI) | payer MEDICARE, BC, SELFPAY ==
--- NOTE | 2023-11-23 09:08 | CT_ITS ---
FINAL REPORT TECHNIQUE: After the administration of oral and intravenous contrast, axial images were obtained through the abdomen and pelvis by computed tomography. The study was performed with techniques to keep radiation dose as low as reasonably achievable, (ALARA). Individual dose reduction techniques using automated exposure control or adjustment of mA and/or kV according to the patient's size were employed. CLINICAL HISTORY: lung cancer COMPARISON: 10/16/2023 FINDINGS: Abdomen: The lung bases are clear. The liver parenchyma is homogeneous. The gallbladder is present. The spleen is at the upper limits of normal in size. The pancreas is unremarkable. Lobular nodules are noted in the adrenals bilaterally consistent with benign adenomas. The kidneys are unremarkable. There is a fat containing midline anterior abdominal wall hernia. Hernia defect measures 2.3 cm and contains only fat. The aorta is normal in caliber. There is no free fluid or adenopathy. Pelvis: The appendix is not identified. The urinary bladder is unremarkable. The uterus is present lies midline. There is no free fluid or adenopathy. IMPRESSION: Hernia with a 2.4 cm defect in the anterior abdominal wall. Stable multiple nodules in the adrenals bilaterally. These could represent adenomas or treated metastases. Continued follow-up recommended. Reviewed, Interpreted and Dictated by Kristopher Breen MD Transcribed by Millie Barclay Authenticated and . [facility]
--- NOTE | 2023-11-23 09:09 | CT_ITS ---
FINAL REPORT TECHNIQUE: Routine axial images were obtained from the lung apices to below the diaphragm following IV contrast administration. Individualized dose reduction techniques using automated exposure control or adjustment of the mA and/or kV according to the patient size were employed. CLINICAL HISTORY: LUNG CANCER COMPARISON: 10/16/2023 FINDINGS: The mediastinal vasculature is adequately opacified. There are right paratracheal lymph nodes measuring up to 2.1 x 1.5 cm and previously measured 2.8 x 2.3 cm. The previously noted infiltrate of soft tissue in the right hilum and subcarinal region has improved. Scarring is noted at the lung apices. There are moderate changes of centrilobular emphysema. Calcified granulomas are noted in the right lung base. There is a small pericardial effusion measuring 1.2 cm in depth, more evident than on the prior exam. IMPRESSION: Improved soft tissue masses in the right paratracheal, right hilar, and subcarinal regions consistent with resolving neoplasia. Slight increase in size of pericardial effusion. Reviewed, Interpreted and Dictated by Kristopher Breen MD Transcribed by Millie Barclay Authenticated and [facility]
[2023-11-23] MEDS: SODIUM CHLORIDE 0.9% 10ML SYR (RAD ONLY) 10 ML IV (09:55)
[2023-11-23] MEDS: IOPAMIDOL-370 (76%);100ML BOTTLE 75 ML IV (09:55)
== END 2023-11-23 23:59 | disposition home or self-care (01) ==
LOC: RAD 09:05
PROVIDERS: PCP Internal Medicine Adolescent Medicine; Visit Provider Internal Medicine Medical Oncology
DX: C34.90 Malignant neoplasm of unspecified part of unspecified bronchus or lung (principal)
CPT/HCPCS: 71260; 74177; Q9967

== ENCOUNTER 2023-11-28 08:55 | Outpatient (CLI) | payer MEDICARE, BC, SELFPAY ==
[2023-11-28] VITALS (8 sets, daily range): BP systolic 135–177; BP diastolic 67–81; PULSE 82–85; RESP 18–19; TEMP 36.6; O2SAT 98–99; BMI 38.2
[2023-11-28 09:17] LABS: Basophils % 0.5 % (0.1-2.0); Eosinophils % 0.2 % (0.1-12.0); Hematocrit 22.3 % (37.0-47.0); Hemoglobin 7.2 g/dL (12.2-16.2); Lymphocytes # 1.3 K/mm3 (0.7-4.5); Mean Corpuscular HGB Conc 32.5 g/dL (31.8-35.4); Mean Corpuscular Hemoglobin 32.1 pg (27.0-31.2); Mean Corpuscular Volume 98.7 fl (81-99); Mean Platelet Volume 9.6 fl (7.4-10.4); Monocytes # 0.4 K/mm3 (0.1-1.0); Monocytes % 8.1 % (1.7-9.3); Neutrophils # 3.2 K/mm3 (1.8-7.8); Neutrophils % 64.2 % (37.0-80.0); Platelet Count 190 K/mm3 (142-424); Red Blood Count 2.26 M/mm3 (4.20-5.40); Red Cell Distribution Width 21.5 % (11.5-17.5); White Blood Count 4.9 K/mm3 (4.8-10.8)
[2023-11-28 09:29] LABS: Alanine Aminotransferase 41 U/L (12-78); Albumin Level 3.7 g/dl (3.5-5.0); Albumin/Globulin Ratio 0.9 (1.1-1.8); Alkaline Phosphatase 97 U/L (38-126); Anion Gap 9.9 mEq/L (5-15); Aspartate Amino Transferase 40 U/L (14-36); Bilirubin,Total 0.8 mg/dl (0.2-1.3); Blood Urea Nitrogen 3 mg/dl (7-17); Calcium 7.9 mg/dl (8.4-10.2); Carbon Dioxide 31 mmol/L (22.0-30.0); Chloride 97 mmol/L (98-107); Creatinine Clearance Estimated 94 mL/min (50-200); Estimated Glomerular Filt Rate 72 ml/min (>60); GFR (African American) 87 ML/MIN (>60); Glucose 146 mg/dl (74-100); Sodium 135 mmol/L (136-145); Total Protein,Serum 7.7 g/dl (6.3-8.2)
[2023-11-28 09:30] LABS: Potassium 2.9 mmoL/L (3.5-5.1)
--- NOTE | 2023-11-28 10:20 | PC.NURSE ---
1020-k.maria fernanda sweet here to witness type and cross collected by winston young
== END 2023-11-28 13:05 | disposition home or self-care (01) ==
LOC: INF 08:56
PROVIDERS: Visit Provider Internal Medicine Medical Oncology
DX: Z51.11 Encounter for antineoplastic chemotherapy (principal); C34.11 Malignant neoplasm of upper lobe, right bronchus or lung; C79.31 Secondary malignant neoplasm of brain; Z79.899 Other long term (current) drug therapy
CPT/HCPCS: 80053; 85025; 86850; 96366; 96367; 96413; J9022

== ENCOUNTER 2023-11-29 09:05 | Outpatient (CLI) | payer MEDICARE, BC, SELFPAY ==
[2023-11-29] VITALS (17 sets, daily range): BP systolic 109–148; BP diastolic 53–77; PULSE 80–93; RESP 17–19; TEMP 36.2–36.6; O2SAT 98–100
[2023-11-29] MEDS: SODIUM CHLORIDE 0.9% 250ML BAG 250 ML IV (09:30)
== END 2023-11-29 14:30 | disposition home or self-care (01) ==
LOC: INF 09:07
PROVIDERS: PCP Nurse Practitioner Family; Visit Provider Internal Medicine Medical Oncology
DX: Z51.11 Encounter for antineoplastic chemotherapy (principal); C34.90 Malignant neoplasm of unspecified part of unspecified bronchus or lung; Z79.899 Other long term (current) drug therapy
CPT/HCPCS: 36430; P9016

== ENCOUNTER 2023-12-06 09:21 | Outpatient (CLI) | payer MEDICARE, BC, SELFPAY ==
[2023-12-06 09:22] VITALS: BMI 36.9
--- NOTE | 2023-12-06 09:23 | PC.NURSE ---
0923-collected labs via venipuncture stick in right ac butterfly needle;pt to wait on results.
[2023-12-06 09:41] LABS: Alanine Aminotransferase 29 U/L (12-78); Albumin Level 3.8 g/dl (3.5-5.0); Albumin/Globulin Ratio 0.9 (1.1-1.8); Alkaline Phosphatase 98 U/L (38-126); Anion Gap 7.7 mEq/L (5-15); Aspartate Amino Transferase 37 U/L (14-36); Bilirubin,Total 1.2 mg/dl (0.2-1.3); Blood Urea Nitrogen 4 mg/dl (7-17); Calcium 8.6 mg/dl (8.4-10.2); Carbon Dioxide 33 mmol/L (22.0-30.0); Chloride 99 mmol/L (98-107); Creatinine Clearance Estimated 90 mL/min (50-200); Estimated Glomerular Filt Rate 72 ml/min (>60); GFR (African American) 87 ML/MIN (>60); Globulin 4.2 g/dL (1.3-3.2); Glucose 129 mg/dl (74-100); Potassium 3.7 mmoL/L (3.5-5.1); Sodium 136 mmol/L (136-145)
== END 2023-12-06 09:58 | disposition home or self-care (01) ==
LOC: INF 09:22
PROVIDERS: PCP Internal Medicine Adolescent Medicine; Visit Provider Internal Medicine Medical Oncology
DX: C34.00 Malignant neoplasm of unspecified main bronchus (principal)
CPT/HCPCS: 36415; 80053

== ENCOUNTER 2023-12-14 12:44 | Outpatient (CLI) | payer MEDICARE, BC, SELFPAY ==
--- NOTE | 2023-12-14 | MR_ITS ---
FINAL REPORT CLINICAL HISTORY: LUNG CANCER, eval for mets COMPARISON: None FINDINGS: Multiplanar MR imaging of the brain was performed without and with contrast. Mild global atrophy is present. There are several enhancing lesions in the cerebellar hemispheres bilaterally, the largest in the superior left cerebellum, 8 mm, best seen on image #22 of series 10. There is also a posterior left cerebellar enhancing lesion, 8 mm in size, with peripheral enhancement best seen on image #9 of series 9. There is a third 4 mm superior right cerebellar enhancing mass, image #22 of series 10. There is a right occipital lobe 3 mm enhancing mass, image 14 of series 9. There is a 2 mm medial left occipital enhancing lesion, image #12 of series 9. No abnormal extra-axial fluid collection is seen. There is no evidence of shift of the midline structures. No area of abnormal restricted diffusion is identified. Normal major vessel vascular flow voids are noted. There is extensive abnormal signal in the mastoid air cells bilaterally consistent with mastoiditis. IMPRESSION: At least 5 enhancing lesions in the cerebellum and occipital lobes bilaterally, the left measuring 8 mm in size. These are worrisome for metastases in this patient with a clinical history of lung cancer. Extensive normal signal in the mastoid air cells bilaterally, consistent with mastoiditis. Reviewed, Interpreted and Dictated by Kristopher Breen MD Transcribed by Lawanda Del Toro Authenticated and . [facility]
[2023-12-14] MEDS: GADOTERIDOL INJ 20ML SYRINGE 21 ML IV (13:27)
[2023-12-14] MEDS: SODIUM CHLORIDE 0.9% 10ML SYR (RAD ONLY) 10 ML IV (13:27)
== END 2023-12-14 23:59 | disposition home or self-care (01) ==
LOC: RAD 12:44
PROVIDERS: PCP Internal Medicine Adolescent Medicine; Visit Provider Internal Medicine Medical Oncology
DX: C34.90 Malignant neoplasm of unspecified part of unspecified bronchus or lung (principal)
CPT/HCPCS: 70553; A9576

== ENCOUNTER 2023-12-19 09:20 | Outpatient (CLI) | payer MEDICARE, BC, SELFPAY ==
[2023-12-19 09:24] VITALS: BMI 36.9
[2023-12-19 09:40] LABS: Basophils % 0.3 % (0.1-2.0); Eosinophils # 0.2 K/mm3 (0.0-0.4); Eosinophils % 1.9 % (0.1-12.0); Hematocrit 29.9 % (37.0-47.0); Hemoglobin 9.8 g/dL (12.2-16.2); Lymphocytes # 1.4 K/mm3 (0.7-4.5); Lymphocytes % 12.6 % (10-50); Mean Corpuscular HGB Conc 32.7 g/dL (31.8-35.4); Mean Corpuscular Hemoglobin 33.8 pg (27.0-31.2); Mean Corpuscular Volume 103.5 fl (81-99); Mean Platelet Volume 7.1 fl (7.4-10.4); Monocytes # 0.5 K/mm3 (0.1-1.0); Monocytes % 4.8 % (1.7-9.3); Neutrophils # 8.8 K/mm3 (1.8-7.8); Neutrophils % 80.5 % (37.0-80.0); Platelet Count 232 K/mm3 (142-424); Red Blood Count 2.89 M/mm3 (4.20-5.40); Red Cell Distribution Width 18.7 % (11.5-17.5)
[2023-12-19 09:43] LABS: Chloride 97 mmol/L (98-107)
[2023-12-19 09:44] LABS: Albumin Level 4.4 g/dl (3.5-5.0); Potassium 3.2 mmoL/L (3.5-5.1); Sodium 134 mmol/L (136-145)
[2023-12-19 09:46] LABS: Blood Urea Nitrogen 6 mg/dl (7-17); Creatinine Clearance Estimated 90 mL/min (50-200); Estimated Glomerular Filt Rate 56 ml/min (>60); GFR (African American) 68 ML/MIN (>60)
[2023-12-19 09:47] LABS: Alanine Aminotransferase 33 U/L (12-78); Alkaline Phosphatase 94 U/L (38-126); Anion Gap 7.2 mEq/L (5-15); Aspartate Amino Transferase 40 U/L (14-36); Bilirubin,Total 1.4 mg/dl (0.2-1.3); Calcium 9.1 mg/dl (8.4-10.2); Carbon Dioxide 33 mmol/L (22.0-30.0); Globulin 4.2 g/dL (1.3-3.2); Glucose 139 mg/dl (74-100); Total Protein,Serum 8.6 g/dl (6.3-8.2)
== END 2023-12-19 10:00 | disposition home or self-care (01) ==
LOC: INF 09:22
PROVIDERS: Visit Provider Internal Medicine Medical Oncology
DX: R91.8 Other nonspecific abnormal finding of lung field (principal)
CPT/HCPCS: 36415; 80053; 85025

== ENCOUNTER 2024-01-11 09:19 | Outpatient (CLI) | payer MEDICARE, BC, SELFPAY ==
[2024-01-11 09:25] VITALS: BMI 34.9
[2024-01-11 09:36] LABS: Basophils % 0.5 % (0.1-2.0); Eosinophils # 0.3 K/mm3 (0.0-0.4); Eosinophils % 4.2 % (0.1-12.0); Hematocrit 30.3 % (37.0-47.0); Hemoglobin 10.3 g/dL (12.2-16.2); Lymphocytes % 14.2 % (10-50); Mean Corpuscular Hemoglobin 34.2 pg (27.0-31.2); Mean Corpuscular Volume 100.6 fl (81-99); Mean Platelet Volume 7.5 fl (7.4-10.4); Monocytes # 0.3 K/mm3 (0.1-1.0); Monocytes % 4.5 % (1.7-9.3); Neutrophils # 5.4 K/mm3 (1.8-7.8); Neutrophils % 76.5 % (37.0-80.0); Platelet Count 242 K/mm3 (142-424); Red Blood Count 3.01 M/mm3 (4.20-5.40); Red Cell Distribution Width 15.6 % (11.5-17.5); White Blood Count 7.1 K/mm3 (4.8-10.8)
[2024-01-11 09:47] LABS: Albumin Level 4.2 g/dl (3.5-5.0); Chloride 96 mmol/L (98-107); Sodium 139 mmol/L (136-145)
[2024-01-11 09:50] LABS: Alanine Aminotransferase 30 U/L (12-78); Albumin/Globulin Ratio 1.1 (1.1-1.8); Alkaline Phosphatase 76 U/L (38-126); Aspartate Amino Transferase 31 U/L (14-36); Bilirubin,Total 0.8 mg/dl (0.2-1.3); Blood Urea Nitrogen 5 mg/dl (7-17); Calcium 9.3 mg/dl (8.4-10.2); Carbon Dioxide 34 mmol/L (22.0-30.0); Creatinine Clearance Estimated 85 mL/min (50-200); Estimated Glomerular Filt Rate 63 ml/min (>60); GFR (African American) 76 ML/MIN (>60); Glucose 137 mg/dl (74-100); Total Protein,Serum 8.2 g/dl (6.3-8.2)
[2024-01-11 10:07] LABS: T4 (Thyroxine) 16.5 ug/dl (5.53-11.0)
[2024-01-11 10:21] LABS: Thyroid Stimulating Hormone 1.57 uIU/mL (0.465-4.68)
[2024-01-11] MEDS: ATEZOLIZUMAB IV (10:32)
[2024-01-11] MEDS: SODIUM CHLORIDE 0.9% IV (10:32)
[2024-01-11] MEDS: SODIUM CHLORIDE 0.9% 50ML BAG 50 ML IV (10:32)
[2024-01-11 10:40] VITALS: BP 119/72; PULSE 79; RESP 18; O2SAT 99
[2024-01-11 11:55] VITALS: BP 155/84; PULSE 78; RESP 18; O2SAT 99
== END 2024-01-11 11:55 | disposition home or self-care (01) ==
LOC: INF 09:21
PROVIDERS: Visit Provider Internal Medicine Medical Oncology
DX: R91.8 Other nonspecific abnormal finding of lung field (principal); Z79.899 Other long term (current) drug therapy
CPT/HCPCS: 80053; 84436; 84443; 85025; 96413; J9022

== ENCOUNTER 2024-02-01 08:50 | Outpatient (CLI) | payer MEDICARE, BC, SELFPAY ==
[2024-02-01 09:14] LABS: Basophils % 0.4 % (0.1-2.0); Eosinophils # 0.2 K/mm3 (0.0-0.4); Eosinophils % 2.6 % (0.1-12.0); Hematocrit 32.9 % (37.0-47.0); Hemoglobin 11.4 g/dL (12.2-16.2); Lymphocytes # 1.5 K/mm3 (0.7-4.5); Lymphocytes % 17.6 % (10-50); Mean Corpuscular HGB Conc 34.7 g/dL (31.8-35.4); Mean Corpuscular Hemoglobin 34.8 pg (27.0-31.2); Mean Corpuscular Volume 100.4 fl (81-99); Mean Platelet Volume 7.4 fl (7.4-10.4); Monocytes # 0.4 K/mm3 (0.1-1.0); Monocytes % 4.8 % (1.7-9.3); Neutrophils # 6.2 K/mm3 (1.8-7.8); Neutrophils % 74.6 % (37.0-80.0); Platelet Count 254 K/mm3 (142-424); Red Blood Count 3.28 M/mm3 (4.20-5.40); White Blood Count 8.3 K/mm3 (4.8-10.8)
[2024-02-01 09:17] LABS: Albumin Level 4.3 g/dl (3.5-5.0); Chloride 98 mmol/L (98-107); Potassium 3.5 mmoL/L (3.5-5.1); Sodium 137 mmol/L (136-145)
[2024-02-01 09:20] LABS: Alanine Aminotransferase 25 U/L (12-78); Alkaline Phosphatase 90 U/L (38-126); Anion Gap 12.5 mEq/L (5-15); Aspartate Amino Transferase 29 U/L (14-36); Bilirubin,Total 0.7 mg/dl (0.2-1.3); Blood Urea Nitrogen 9 mg/dl (7-17); Calcium 9.4 mg/dl (8.4-10.2); Carbon Dioxide 30 mmol/L (22.0-30.0); Estimated Glomerular Filt Rate 63 ml/min (>60); GFR (African American) 76 ML/MIN (>60); Globulin 4.1 g/dL (1.3-3.2); Glucose 131 mg/dl (74-100); Total Protein,Serum 8.4 g/dl (6.3-8.2)
[2024-02-01 09:52] LABS: Thyroid Stimulating Hormone 0.48 uIU/mL (0.465-4.68)
[2024-02-01] MEDS: ATEZOLIZUMAB IV (10:38)
[2024-02-01] MEDS: SODIUM CHLORIDE 0.9% IV (10:38)
[2024-02-01] MEDS: SODIUM CHLORIDE 0.9% 50ML BAG 50 ML IV (10:38)
[2024-02-01 10:45] VITALS: BP 145/73; PULSE 78; RESP 19; O2SAT 99
[2024-02-01 11:55] VITALS: BP 150/84; PULSE 75; RESP 19; O2SAT 99
[2024-02-01 12:34] LABS: Free T4 (Free Thyroxine) 1.95 ng/dl (0.78-2.19)
== END 2024-02-01 11:55 | disposition home or self-care (01) ==
LOC: INF 08:51
PROVIDERS: PCP Internal Medicine Adolescent Medicine; Visit Provider Internal Medicine Medical Oncology
DX: E07.9 Disorder of thyroid, unspecified (principal); C34.90 Malignant neoplasm of unspecified part of unspecified bronchus or lung
CPT/HCPCS: 80053; 84439; 84443; 85025; 96413; J9022

== ENCOUNTER 2024-02-20 07:09 | Outpatient (CLI) | payer MEDICARE, BC, SELFPAY ==
--- NOTE | 2024-02-20 07:17 | CT_ITS ---
FINAL REPORT TECHNIQUE: Thin section axial images were obtained through the abdomen after intravenous contrast. Oral contrast was given. Reconstruction images were obtained from the axial data. Exam was performed using dose reduction techniques. CLINICAL HISTORY: efficacy HX OF LUNG CANCER COMPARISON: 11/23/2023 FINDINGS: The liver is homogeneous. The gallbladder is present. The spleen and pancreas are unremarkable. Bilateral adrenal nodules are unchanged. There is no hydronephrosis or solid renal mass. Abdominal GI tract is without acute abnormality. Mildly enlarged portal lymph nodes are unchanged. There is a stable fat-containing ventral hernia above the umbilicus. The appendix is unremarkable. The uterus is unremarkable for age. There is no evidence of pelvic lymphadenopathy or ascites. IMPRESSION: Stable nodules. Stable, mildly enlarged portal lymph nodes. Additional chronic findings. No new abnormality. Reviewed, Interpreted and Dictated by Carmen Hermosillo MD Transcribed by Amber Gupta Authenticated and [facility]
--- NOTE | 2024-02-20 07:17 | CT_ITS ---
FINAL REPORT TECHNIQUE: Thin section axial images were obtained from the thoracic inlet through the upper abdomen after intravenous contrast injection. Reconstruction images were obtained from the axial data. Exam was performed using dose reduction technique. CLINICAL HISTORY: efficacy HX OF LUNG CANCER COMPARISON: 11/23/2023 FINDINGS: There is no evidence of active Richard lymphadenopathy. There has been interval improvement in the precarinal lymphadenopathy now measuring 15 mm, previously measured 21 mm on remeasurement. Right paratracheal lymph node is nearly completely resolved. Mildly enlarged right hilar lymph node is stable. Subcarinal lymphadenopathy has improved. There is no pleural effusion. There has been no change in the pericardial effusion. Changes of emphysema are identified. Bilateral upper lobe scar is unchanged. There is a right lower lobe subpleural nodule measuring 5 mm well-seen on image 57, stable. There is a 4 mm left lower lobe subpleural nodule well-seen on image 59, stable. New, subpleural nodule is seen in the right costophrenic angle. Finding is best seen on image 68. There is mild compression deformity of an upper thoracic vertebral body which is stable. IMPRESSION: Improved lymphadenopathy. Stable pericardial effusion. New, right costophrenic angle nodular opacity which could be atelectasis. Recommend chest CT follow-up in 3 months. Reviewed, Interpreted and Dictated by Carmen eHrmosillo MD Transcribed by Amber Gupta Authenticated and [facility]
[2024-02-20] MEDS: SODIUM CHLORIDE 0.9% 10ML SYR (RAD ONLY) 10 ML IV (08:40)
[2024-02-20] MEDS: IOPAMIDOL-370 (76%);100ML BOTTLE 75 ML IV (08:41)
--- NOTE | 2024-02-20 09:00 | PC.NURSE ---
pt didnt needed anything today to early for labs for appt next week
== END 2024-02-20 09:00 | disposition home or self-care (01) ==
PROVIDERS: PCP Internal Medicine Adolescent Medicine; Visit Provider Internal Medicine Medical Oncology
DX: R91.8 Other nonspecific abnormal finding of lung field (principal)
CPT/HCPCS: 71260; 74177; Q9967

== ENCOUNTER 2024-02-29 10:09 | Outpatient (CLI) | payer MEDICARE, BC, SELFPAY ==
[2024-02-29 10:11] VITALS: BMI 33.2
[2024-02-29 10:31] LABS: Basophils # 0.1 K/mm3 (0-0.2); Basophils % 0.8 % (0.1-2.0); Eosinophils # 0.2 K/mm3 (0.0-0.4); Eosinophils % 2.7 % (0.1-12.0); Hematocrit 33.9 % (37.0-47.0); Hemoglobin 11.9 g/dL (12.2-16.2); Lymphocytes # 1.5 K/mm3 (0.7-4.5); Lymphocytes % 19.7 % (10-50); Mean Corpuscular HGB Conc 35.1 g/dL (31.8-35.4); Mean Corpuscular Hemoglobin 34.5 pg (27.0-31.2); Mean Corpuscular Volume 98.3 fl (81-99); Mean Platelet Volume 7.3 fl (7.4-10.4); Monocytes # 0.4 K/mm3 (0.1-1.0); Monocytes % 5.9 % (1.7-9.3); Neutrophils # 5.4 K/mm3 (1.8-7.8); Neutrophils % 70.9 % (37.0-80.0); Platelet Count 263 K/mm3 (142-424); Red Blood Count 3.45 M/mm3 (4.20-5.40); Red Cell Distribution Width 13.7 % (11.5-17.5); White Blood Count 7.6 K/mm3 (4.8-10.8)
[2024-02-29 10:34] LABS: Albumin Level 4.2 g/dl (3.5-5.0); Chloride 98 mmol/L (98-107)
[2024-02-29 10:35] LABS: Potassium 3.4 mmoL/L (3.5-5.1); Sodium 138 mmol/L (136-145)
[2024-02-29 10:37] LABS: Alanine Aminotransferase 20 U/L (12-78); Anion Gap 9.4 mEq/L (5-15); Aspartate Amino Transferase 27 U/L (14-36); Blood Urea Nitrogen 7 mg/dl (7-17); Carbon Dioxide 34 mmol/L (22.0-30.0); Creatinine Clearance Estimated 81 mL/min (50-200); Estimated Glomerular Filt Rate 63 ml/min (>60); GFR (African American) 76 ML/MIN (>60)
[2024-02-29 10:38] LABS: Albumin/Globulin Ratio 1.1 (1.1-1.8); Alkaline Phosphatase 81 U/L (38-126); Bilirubin,Total 0.5 mg/dl (0.2-1.3); Calcium 9.2 mg/dl (8.4-10.2); Globulin 3.8 g/dL (1.3-3.2); Glucose 103 mg/dl (74-100)
[2024-02-29 11:09] LABS: Thyroid Stimulating Hormone 0.45 uIU/mL (0.465-4.68)
[2024-02-29] MEDS: ATEZOLIZUMAB IV (11:49)
[2024-02-29] MEDS: SODIUM CHLORIDE 0.9% IV (11:49)
[2024-02-29] MEDS: SODIUM CHLORIDE 0.9% 50ML BAG 50 ML IV (11:49)
[2024-02-29 12:05] VITALS: BP 135/78; PULSE 79; RESP 18; TEMP 36.4; O2SAT 99
[2024-02-29 13:15] VITALS: BP 145/75; PULSE 77; RESP 18; O2SAT 99
[2024-03-01 14:12] LABS: Adrenocorticotropic Hormone 12.3 pg/mL (7.2-63.3)
== END 2024-02-29 13:15 | disposition home or self-care (01) ==
LOC: INF 10:10
PROVIDERS: PCP Internal Medicine Adolescent Medicine; Visit Provider Internal Medicine Medical Oncology
DX: C34.90 Malignant neoplasm of unspecified part of unspecified bronchus or lung (principal); Z79.899 Other long term (current) drug therapy
CPT/HCPCS: 80053; 82024; 82533; 84443; 85025; 96413; J9022

== ENCOUNTER 2024-03-15 13:57 | Outpatient (CLI) | payer MEDICARE, BC, SELFPAY ==
--- NOTE | 2024-03-15 13:58 | MR_ITS ---
FINAL REPORT TECHNIQUE: Multiplanar MR, without and with gadolinium enhancement CLINICAL HISTORY: hx lung and brain cancer. COMPARISON: 12/14/2023 FINDINGS: Diffusion sequences show no signal abnormality to indicate acute infarct. There are multiple enhancing lesions in the cerebellum, greater on the left than on the right, presumed metastases in this patient with known lung carcinoma. There is a ring-enhancing lesion in the posterior left cerebellum best seen on image #21, measuring 7 mm in size, stable. There is a second ring-enhancing lesion in the superior left cerebellum best seen on image #18, measuring 8 mm in size, also stable. There is a stable small right occipital enhancing lesion, 3 mm in size. There is evidence of a prior left occipital craniotomy with encephalomalacia, unchanged. There is mild left cerebellar and occipital lobe edema, stable. There is a single new 2 mm focus of enhancement in the right frontal lobe, best seen on image #18 of the axial images. There is no evidence of hemorrhage. The ventricles are normal in size. IMPRESSION: One new enhancing 2 mm focus is present in the right frontal lobe, best seen on image #18 of the axial images. No other new metastases are seen. The other metastases are stable without evidence of hemorrhage or significant mass effect. Reviewed, Interpreted and Dictated by Stone Donnelly MD Transcribed by Lawanda Del Toro Authenticated and [facility]
[2024-03-15] MEDS: SODIUM CHLORIDE 0.9% 10ML SYR (RAD ONLY) 10 ML IV (15:04)
[2024-03-15] MEDS: GADOTERIDOL INJ 20ML SYRINGE 18 ML IV (15:04)
== END 2024-03-15 23:59 | disposition home or self-care (01) ==
LOC: RAD 13:58
PROVIDERS: PCP Internal Medicine Adolescent Medicine; Visit Provider Internal Medicine Medical Oncology
DX: R91.8 Other nonspecific abnormal finding of lung field (principal); Z85.841 Personal history of malignant neoplasm of brain; Z85.118 Personal history of other malignant neoplasm of bronchus and lung
CPT/HCPCS: 70553; A9576

== ENCOUNTER 2024-03-21 10:06 | Outpatient (CLI) | payer MEDICARE, BC, SELFPAY ==
[2024-03-21 10:32] LABS: Hemoglobin 11.2 g/dL (12.2-16.2); Red Blood Count 3.37 M/mm3 (4.20-5.40); White Blood Count 7.1 K/mm3 (4.8-10.8)
[2024-03-21 10:33] LABS: Basophils % 0.4 % (0.1-2.0); Eosinophils % 2.7 % (0.1-12.0); Hematocrit 33.8 % (37.0-47.0); Lymphocytes % 18.7 % (10-50); Mean Corpuscular HGB Conc 33.1 g/dL (31.8-35.4); Mean Corpuscular Hemoglobin 33.2 pg (27.0-31.2); Mean Corpuscular Volume 100.3 fl (81-99); Mean Platelet Volume 8.3 fl (7.4-10.4); Monocytes % 7.5 % (1.7-9.3); Neutrophils % 70.4 % (37.0-80.0); Platelet Count 182 K/mm3 (142-424); Red Cell Distribution Width 12.4 % (11.5-17.5)
[2024-03-21 10:34] LABS: Eosinophils # 0.2 K/mm3 (0.0-0.4); Lymphocytes # 1.3 K/mm3 (0.7-4.5); Monocytes # 0.5 K/mm3 (0.1-1.0)
[2024-03-21 10:54] LABS: Albumin Level 4.3 g/dl (3.5-5.0); Chloride 97 mmol/L (98-107); Potassium 3.8 mmoL/L (3.5-5.1); Sodium 134 mmol/L (136-145)
[2024-03-21 10:57] LABS: Alanine Aminotransferase 23 U/L (12-78); Albumin/Globulin Ratio 1.2 (1.1-1.8); Alkaline Phosphatase 84 U/L (38-126); Anion Gap 7.8 mEq/L (5-15); Aspartate Amino Transferase 27 U/L (14-36); Bilirubin,Total 0.5 mg/dl (0.2-1.3); Blood Urea Nitrogen 12 mg/dl (7-17); Carbon Dioxide 33 mmol/L (22.0-30.0); Estimated Glomerular Filt Rate 72 ml/min (>60); GFR (African American) 87 ML/MIN (>60); Globulin 3.7 g/dL (1.3-3.2)
[2024-03-21 10:58] LABS: Calcium 9.5 mg/dl (8.4-10.2); Glucose 99 mg/dl (74-100)
[2024-03-21] MEDS: SODIUM CHLORIDE 0.9% IV (11:12)
[2024-03-21] MEDS: ATEZOLIZUMAB IV (11:12)
[2024-03-21] MEDS: SODIUM CHLORIDE 0.9% 50ML BAG 50 ML IV (11:12)
[2024-03-21 11:15] VITALS: BP 126/84; PULSE 77; RESP 18; TEMP 36.7; O2SAT 97
[2024-03-21 11:30] VITALS: BP 117/64; PULSE 72
[2024-03-21 11:45] VITALS: BP 130/68; PULSE 68
[2024-03-21 12:00] VITALS: BP 137/71; PULSE 72
[2024-03-21 12:18] VITALS: BP 133/70; PULSE 70
== END 2024-03-21 12:25 | disposition home or self-care (01) ==
LOC: INF 10:07
PROVIDERS: Visit Provider Internal Medicine Medical Oncology
DX: C34.90 Malignant neoplasm of unspecified part of unspecified bronchus or lung (principal)
CPT/HCPCS: 80053; 85025; 96413; J9022

== ENCOUNTER 2024-04-11 09:45 | Outpatient (CLI) | payer MEDICARE, BC, SELFPAY ==
[2024-04-11 09:48] VITALS: BMI 33.3
[2024-04-11 10:24] LABS: Basophils % 0.4 % (0.1-2.0); Eosinophils # 0.2 K/mm3 (0.0-0.4); Eosinophils % 1.9 % (0.1-12.0); Hematocrit 33.3 % (37.0-47.0); Hemoglobin 11.4 g/dL (12.2-16.2); Lymphocytes # 1.3 K/mm3 (0.7-4.5); Lymphocytes % 15.9 % (10-50); Mean Corpuscular HGB Conc 34.2 g/dL (31.8-35.4); Mean Corpuscular Hemoglobin 33.7 pg (27.0-31.2); Mean Corpuscular Volume 98.5 fl (81-99); Mean Platelet Volume 8.8 fl (7.4-10.4); Monocytes # 0.6 K/mm3 (0.1-1.0); Monocytes % 6.9 % (1.7-9.3); Neutrophils # 6.3 K/mm3 (1.8-7.8); Neutrophils % 74.7 % (37.0-80.0); Platelet Count 203 K/mm3 (142-424); Red Blood Count 3.38 M/mm3 (4.20-5.40); Red Cell Distribution Width 12.6 % (11.5-17.5); White Blood Count 8.4 K/mm3 (4.8-10.8)
[2024-04-11 10:34] LABS: Albumin Level 4.5 g/dl (3.5-5.0); Chloride 94 mmol/L (98-107); Sodium 133 mmol/L (136-145)
[2024-04-11 10:35] LABS: Potassium 4.1 mmoL/L (3.5-5.1)
[2024-04-11 10:37] LABS: Alanine Aminotransferase 24 U/L (12-78); Alkaline Phosphatase 80 U/L (38-126); Anion Gap 12.1 mEq/L (5-15); Aspartate Amino Transferase 32 U/L (14-36); Bilirubin,Total 0.6 mg/dl (0.2-1.3); Blood Urea Nitrogen 9 mg/dl (7-17); Carbon Dioxide 31 mmol/L (22.0-30.0); Creatinine Clearance Estimated 81 mL/min (50-200); Estimated Glomerular Filt Rate 101 ml/min (>60); GFR (African American) 122 ML/MIN (>60)
[2024-04-11 10:38] LABS: Albumin/Globulin Ratio 1.3 (1.1-1.8); Calcium 9.6 mg/dl (8.4-10.2); Globulin 3.6 g/dL (1.3-3.2); Glucose 101 mg/dl (74-100); Total Protein,Serum 8.1 g/dl (6.3-8.2)
[2024-04-11] MEDS: SODIUM CHLORIDE 0.9% 50ML BAG 50 ML IV (11:20)
[2024-04-11] MEDS: ATEZOLIZUMAB IV (11:20)
[2024-04-11] MEDS: SODIUM CHLORIDE 0.9% IV (11:20)
[2024-04-11 11:25] VITALS: BP 138/69; PULSE 72; RESP 17; O2SAT 100
[2024-04-11 11:40] VITALS: BP 145/75; PULSE 70; RESP 16
[2024-04-11 11:55] VITALS: BP 139/78; PULSE 70; RESP 16
[2024-04-11 12:10] VITALS: BP 140/77; PULSE 70; RESP 16
[2024-04-11 12:25] VITALS: BP 150/81; PULSE 73; RESP 17
== END 2024-04-11 12:40 | disposition home or self-care (01) ==
LOC: INF 09:46
PROVIDERS: PCP Internal Medicine Adolescent Medicine; Visit Provider Internal Medicine Medical Oncology
DX: R91.8 Other nonspecific abnormal finding of lung field (principal)
CPT/HCPCS: 80053; 85025; 96413; J9022

== ENCOUNTER 2024-04-29 12:46 | Outpatient (CLI) | payer MEDICARE, BC, SELFPAY ==
--- NOTE | 2024-04-29 12:53 | MR_ITS ---
FINAL REPORT CLINICAL HISTORY: Oncology Radiation. F/U MRI BRAIN FROM 03/15/2024 COMPARISON: 03/23/2024 FINDINGS: Multiplanar MR imaging of the brain was performed without and with contrast. There is moderate abnormal signal noted in the deep white matter bilaterally, without enhancement after contrast administration. There is a small focus of increased signal in the right occipital lobe on diffusion-weighted images, however this is not seen on the ADC images and likely represents T2 shine through. There is a tiny focus of enhancement in the right parietal white matter, best seen on image #18 of series 7, stable. There is a 4 mm enhancing right occipital cortical mass, best seen on image #14 of series 11, also stable. There are 2 contiguous lesions in the superior left cerebellum that measure up to 9 mm in size, the more inferior of which is slightly more conspicuous than seen on the prior exam. There is a tiny superior right cerebellar enhancing focus, best seen on image #17 of series 12, slightly more conspicuous as well. No abnormal extra-axial fluid collection is seen. The ventricular size is within normal limits. There is no evidence of shift of the midline structures. The posterior fossa and brainstem have an unremarkable appearance. No area of abnormal restricted diffusion is identified. Normal major vessel vascular flow voids are noted. IMPRESSION: Multiple small enhancing foci are present in the right parietal white matter and in the cerebellum bilaterally, most of which are stable in size. 2 of the lesions as described above are slightly more conspicuous than seen on the prior exam. Reviewed, Interpreted and Dictated by Kristopher Breen MD Transcribed by Lawanda Del Toro Authenticated and [facility]
[2024-04-29] MEDS: GADOTERIDOL INJ 20ML SYRINGE 17 ML IV (13:48)
[2024-04-29] MEDS: SODIUM CHLORIDE 0.9% 10ML SYR (RAD ONLY) 10 ML IV (13:48)
== END 2024-04-29 23:59 | disposition home or self-care (01) ==
LOC: RAD 12:47
PROVIDERS: PCP Internal Medicine Adolescent Medicine; Visit Provider Internal Medicine Medical Oncology
DX: C34.90 Malignant neoplasm of unspecified part of unspecified bronchus or lung (principal)
CPT/HCPCS: 70553; A9576

== ENCOUNTER 2024-05-02 09:56 | Outpatient (CLI) | payer MEDICARE, BC, SELFPAY ==
[2024-05-02 09:58] VITALS: BMI 32.4
[2024-05-02 10:29] LABS: Basophils % 0.5 % (0.1-2.0); Eosinophils # 0.2 K/mm3 (0.0-0.4); Eosinophils % 2.2 % (0.1-12.0); Hematocrit 34.5 % (37.0-47.0); Hemoglobin 11.1 g/dL (12.2-16.2); Lymphocytes # 1.4 K/mm3 (0.7-4.5); Lymphocytes % 16.3 % (10-50); Mean Corpuscular HGB Conc 32.2 g/dL (31.8-35.4); Mean Corpuscular Hemoglobin 32.3 pg (27.0-31.2); Mean Corpuscular Volume 100.3 fl (81-99); Monocytes # 0.5 K/mm3 (0.1-1.0); Monocytes % 5.8 % (1.7-9.3); Neutrophils # 6.5 K/mm3 (1.8-7.8); Neutrophils % 74.9 % (37.0-80.0); Platelet Count 232 K/mm3 (142-424); Red Blood Count 3.44 M/mm3 (4.20-5.40); Red Cell Distribution Width 12.6 % (11.5-17.5); White Blood Count 8.7 K/mm3 (4.8-10.8)
[2024-05-02 10:35] LABS: Albumin Level 4.2 g/dl (3.5-5.0); Chloride 95 mmol/L (98-107); Sodium 139 mmol/L (136-145)
[2024-05-02 10:36] LABS: Potassium 4.1 mmoL/L (3.5-5.1)
[2024-05-02 10:38] LABS: Alanine Aminotransferase 21 U/L (12-78); Albumin/Globulin Ratio 1.1 (1.1-1.8); Alkaline Phosphatase 90 U/L (38-126); Aspartate Amino Transferase 24 U/L (14-36); Bilirubin,Total 0.5 mg/dl (0.2-1.3); Blood Urea Nitrogen 12 mg/dl (7-17); Creatinine Clearance Estimated 79 mL/min (50-200); Estimated Glomerular Filt Rate 84 ml/min (>60); GFR (African American) 102 ML/MIN (>60); Globulin 3.8 g/dL (1.3-3.2)
[2024-05-02 10:39] LABS: Calcium 9.2 mg/dl (8.4-10.2); Glucose 98 mg/dl (74-100)
[2024-05-02 10:45] LABS: Anion Gap 15.1 mEq/L (5-15); Carbon Dioxide 33 mmol/L (22.0-30.0)
[2024-05-02 11:10] LABS: Thyroid Stimulating Hormone 0.39 uIU/mL (0.465-4.68)
[2024-05-02] MEDS: SODIUM CHLORIDE 0.9% 50ML BAG 50 ML IV (11:29)
[2024-05-02] MEDS: ATEZOLIZUMAB IV (11:30)
[2024-05-02] MEDS: SODIUM CHLORIDE 0.9% IV (11:30)
[2024-05-02 11:35] VITALS: BP 113/67; PULSE 70; RESP 17; TEMP 35.5; O2SAT 99
[2024-05-02 11:50] VITALS: BP 94/54; PULSE 77; RESP 17
[2024-05-02 12:05] VITALS: BP 116/55; PULSE 74; RESP 16
[2024-05-02 12:20] VITALS: BP 106/56; PULSE 76; RESP 16
[2024-05-02 12:35] VITALS: BP 119/58; PULSE 74; RESP 16
== END 2024-05-02 12:50 | disposition home or self-care (01) ==
LOC: INF 09:58
PROVIDERS: PCP Internal Medicine Adolescent Medicine; Visit Provider Internal Medicine Medical Oncology
DX: C34.11 Malignant neoplasm of upper lobe, right bronchus or lung (principal); Z79.899 Other long term (current) drug therapy; Z51.11 Encounter for antineoplastic chemotherapy
CPT/HCPCS: 80053; 82024; 82533; 84443; 85025; 96413; J9022

== ENCOUNTER 2024-05-22 13:03 | Outpatient (CLI) | payer MEDICARE, BC, SELFPAY ==
--- NOTE | 2024-05-22 13:07 | CT_ITS ---
FINAL REPORT TECHNIQUE: Axial CT with contrast with 3-D MIP reconstruction This study was performed with techniques to keep radiation doses as low as reasonably achievable, (ALARA). Individualized dose reduction techniques using automated exposure control or adjustment of mA and/or kV according to the patient''s size were employed. CLINICAL HISTORY: LUNG CANCER COMPARISON: 02/20/2024 FINDINGS: There are small clustered nodules in the right lower lobe which are new from prior exam. This is best seen on images 55-56 and measure up to 4 mm. Soft tissue nodule in the right lower lobe peribronchial region on image 55 measures 16 mm which is new/increased from prior exam. There is mild right apical scarring. There is right precarinal adenopathy measuring 16 x 13 mm, previously measured 20 x 18 mm. There is an improved pericardial effusion. There is no pleural effusion. There is no pneumothorax. IMPRESSION: New nodularity within the right lung which may be neoplastic or inflammatory. Recommend chest CT with contrast follow-up in 3 months. Nodules are too small for imaging guided biopsy. Reviewed, Interpreted and Dictated by Stone Donnelly MD Transcribed by Sandy Osman Authenticated and [facility]
--- NOTE | 2024-05-22 13:07 | CT_ITS ---
FINAL REPORT TECHNIQUE: After the administration of intravenous contrast, axial images were obtained through the abdomen and pelvis by computed tomography. This study was performed with technique to keep radiation doses as low as reasonably achievable, (ALARA). Individualized dose reduction techniques using automated exposure control or adjustment of the MA and/or KV according to the patient's size were employed. CLINICAL HISTORY: LUNG CANCER COMPARISON: 02/20/2024 FINDINGS: Abdomen: The liver is normal in size and attenuation. The spleen is unremarkable. There is stable, mild adrenal enlargement which is nonspecific. The pancreas is unremarkable. The kidneys enhance appropriately. The aorta is normal in caliber. There is no free fluid. There are stable, mildly enlarged portacaval lymph nodes which are likely benign. Central abdominal wall hernia containing fat is again seen. Hernia sac measures 7.2 cm, unchanged. Pelvis: The appendix is normal. Uterus is normal for patient's age. The urinary bladder is unremarkable. There is no free fluid or adenopathy. IMPRESSION: Stable exam without evidence of metastatic disease Reviewed, Interpreted and Dictated by Stone Donnelly MD Transcribed by Sandy Osman Authenticated and [facility]
[2024-05-22] MEDS: SODIUM CHLORIDE 0.9% 10ML SYR (RAD ONLY) 10 ML IV (13:41)
[2024-05-22] MEDS: BARIUM SULFATE(READI-CAT2);450ML BOTTLE 450 ML PO (13:41)
[2024-05-22] MEDS: IOPAMIDOL-370 (76%);100ML BOTTLE 75 ML IV (13:41)
== END 2024-05-22 23:59 | disposition home or self-care (01) ==
LOC: RAD 13:05
PROVIDERS: PCP Internal Medicine Adolescent Medicine; Visit Provider Internal Medicine Medical Oncology
DX: C34.91 Malignant neoplasm of unspecified part of right bronchus or lung (principal)
CPT/HCPCS: 71260; 74177; Q9967

== ENCOUNTER 2024-05-23 09:09 | Outpatient (CLI) | payer MEDICARE, BC, SELFPAY ==
[2024-05-23 09:11] VITALS: BMI 32.1
[2024-05-23 09:33] LABS: Basophils % 0.4 % (0.1-2.0); Eosinophils # 0.2 K/mm3 (0.0-0.4); Eosinophils % 2.1 % (0.1-12.0); Hematocrit 32.5 % (37.0-47.0); Hemoglobin 10.6 g/dL (12.2-16.2); Lymphocytes # 1.4 K/mm3 (0.7-4.5); Lymphocytes % 19.1 % (10-50); Mean Corpuscular HGB Conc 32.6 g/dL (31.8-35.4); Mean Corpuscular Hemoglobin 31.9 pg (27.0-31.2); Mean Corpuscular Volume 97.9 fl (81-99); Mean Platelet Volume 8.2 fl (7.4-10.4); Monocytes # 0.5 K/mm3 (0.1-1.0); Monocytes % 7.1 % (1.7-9.3); Platelet Count 180 K/mm3 (142-424); Red Blood Count 3.32 M/mm3 (4.20-5.40); Red Cell Distribution Width 12.5 % (11.5-17.5); White Blood Count 7.1 K/mm3 (4.8-10.8)
[2024-05-23 09:47] LABS: Alanine Aminotransferase 22 U/L (12-78); Albumin Level 4.3 g/dl (3.5-5.0); Albumin/Globulin Ratio 1.2 (1.1-1.8); Alkaline Phosphatase 77 U/L (38-126); Anion Gap 7.8 mEq/L (5-15); Aspartate Amino Transferase 24 U/L (14-36); Bilirubin,Total 0.3 mg/dl (0.2-1.3); Blood Urea Nitrogen 9 mg/dl (7-17); Calcium 9.3 mg/dl (8.4-10.2); Carbon Dioxide 36 mmol/L (22.0-30.0); Chloride 95 mmol/L (98-107); Creatinine Clearance Estimated 79 mL/min (50-200); Estimated Glomerular Filt Rate 84 ml/min (>60); GFR (African American) 102 ML/MIN (>60); Globulin 3.6 g/dL (1.3-3.2); Glucose 132 mg/dl (74-100); Potassium 3.8 mmoL/L (3.5-5.1); Sodium 135 mmol/L (136-145); Total Protein,Serum 7.9 g/dl (6.3-8.2)
[2024-05-23] MEDS: ATEZOLIZUMAB IV (10:39)
[2024-05-23] MEDS: SODIUM CHLORIDE 0.9% IV (10:39)
[2024-05-23] MEDS: SODIUM CHLORIDE 0.9% 50ML BAG 50 ML IV (10:40)
[2024-05-23 10:45] VITALS: BP 134/68; PULSE 72; RESP 18; TEMP 36.7; O2SAT 98
[2024-05-23 12:00] VITALS: BP 132/72; PULSE 78; RESP 18; O2SAT 98
== END 2024-05-23 12:10 | disposition home or self-care (01) ==
LOC: INF 09:11
PROVIDERS: PCP Internal Medicine Adolescent Medicine; Visit Provider Internal Medicine Medical Oncology
DX: R91.8 Other nonspecific abnormal finding of lung field (principal); Z79.899 Other long term (current) drug therapy
CPT/HCPCS: 80053; 82024; 82533; 84443; 85025; 96413; J9022

== ENCOUNTER 2024-06-13 08:39 | Outpatient (CLI) | payer MEDICARE, BC, SELFPAY ==
[2024-06-13 08:43] VITALS: BMI 32.3
[2024-06-13 09:09] LABS: Basophils % 0.2 % (0.1-2.0); Eosinophils # 0.3 K/mm3 (0.0-0.4); Eosinophils % 2.8 % (0.1-12.0); Hemoglobin 12.2 g/dL (12.2-16.2); Lymphocytes # 1.4 K/mm3 (0.7-4.5); Lymphocytes % 15.6 % (10-50); Mean Corpuscular Hemoglobin 32.4 pg (27.0-31.2); Mean Corpuscular Volume 98.1 fl (81-99); Mean Platelet Volume 8.4 fl (7.4-10.4); Monocytes # 0.5 K/mm3 (0.1-1.0); Monocytes % 5.5 % (1.7-9.3); Neutrophils # 6.7 K/mm3 (1.8-7.8); Neutrophils % 75.8 % (37.0-80.0); Platelet Count 205 K/mm3 (142-424); Red Blood Count 3.77 M/mm3 (4.20-5.40); Red Cell Distribution Width 12.4 % (11.5-17.5); White Blood Count 8.9 K/mm3 (4.8-10.8)
[2024-06-13 09:58] LABS: Albumin Level 4.7 g/dl (3.5-5.0); Chloride 94 mmol/L (98-107); Potassium 4.1 mmoL/L (3.5-5.1); Sodium 138 mmol/L (136-145)
[2024-06-13 10:01] LABS: Alanine Aminotransferase 21 U/L (12-78); Albumin/Globulin Ratio 1.1 (1.1-1.8); Alkaline Phosphatase 91 U/L (38-126); Anion Gap 9.1 mEq/L (5-15); Aspartate Amino Transferase 23 U/L (14-36); Bilirubin,Total 0.4 mg/dl (0.2-1.3); Blood Urea Nitrogen 11 mg/dl (7-17); Calcium 9.5 mg/dl (8.4-10.2); Carbon Dioxide 39 mmol/L (22.0-30.0); Creatinine Clearance Estimated 79 mL/min (50-200); Estimated Glomerular Filt Rate 84 ml/min (>60); GFR (African American) 102 ML/MIN (>60); Globulin 4.1 g/dL (1.3-3.2); Glucose 91 mg/dl (74-100); Total Protein,Serum 8.8 g/dl (6.3-8.2)
[2024-06-13] MEDS: SODIUM CHLORIDE 0.9% IV (10:29)
[2024-06-13] MEDS: SODIUM CHLORIDE 0.9% 50ML BAG 50 ML IV (10:29)
[2024-06-13] MEDS: SODIUM CHLORIDE 0.9% 10ML FLUSH SYRINGE 10 ML IV (10:29)
[2024-06-13] MEDS: ATEZOLIZUMAB IV (10:29)
[2024-06-13 10:32] LABS: Thyroid Stimulating Hormone 0.18 uIU/mL (0.465-4.68)
[2024-06-13 10:38] VITALS: BP 138/63; PULSE 66; RESP 18; TEMP 36.7; O2SAT 100
[2024-06-13 11:40] VITALS: BP 131/68; PULSE 75; RESP 18; TEMP 36.7; O2SAT 98
[2024-06-14 14:12] LABS: Adrenocorticotropic Hormone 12.6 pg/mL (7.2-63.3)
== END 2024-06-13 11:45 | disposition home or self-care (01) ==
LOC: INF 08:40
PROVIDERS: PCP Internal Medicine Adolescent Medicine; Visit Provider Internal Medicine Medical Oncology
DX: C34.90 Malignant neoplasm of unspecified part of unspecified bronchus or lung (principal); Z79.899 Other long term (current) drug therapy
CPT/HCPCS: 80053; 82024; 82533; 84443; 85025; 96413; J9022

== ENCOUNTER 2024-07-04 09:15 | Outpatient (CLI) | payer MEDICARE, BC, SELFPAY ==
[2024-07-04 09:17] VITALS: BMI 32.3
[2024-07-04 09:30] LABS: Basophils # 0.1 K/mm3 (0-0.2); Basophils % 0.5 % (0.1-2.0); Eosinophils # 0.3 K/mm3 (0.0-0.4); Eosinophils % 2.6 % (0.1-12.0); Hemoglobin 11.3 g/dL (12.2-16.2); Lymphocytes # 1.6 K/mm3 (0.7-4.5); Lymphocytes % 15.9 % (10-50); Mean Corpuscular HGB Conc 32.3 g/dL (31.8-35.4); Mean Corpuscular Hemoglobin 31.7 pg (27.0-31.2); Mean Platelet Volume 8.2 fl (7.4-10.4); Monocytes # 0.6 K/mm3 (0.1-1.0); Monocytes % 6.5 % (1.7-9.3); Neutrophils # 7.3 K/mm3 (1.8-7.8); Neutrophils % 74.3 % (37.0-80.0); Nucleated Red Blood Cells # 0 10^3/uL; Nucleated Red Blood Cells % 0 %; Platelet Count 199 K/mm3 (142-424); Red Blood Count 3.57 M/mm3 (4.20-5.40); Red Cell Distribution Width 12.2 % (11.5-17.5); Red Cell Distribution Width-SD 44.1 fL; White Blood Count 9.9 K/mm3 (4.8-10.8)
[2024-07-04 09:45] LABS: Albumin Level 3.9 g/dl (3.5-5.0); Chloride 92 mmol/L (98-107); Potassium 4.1 mmoL/L (3.5-5.1); Sodium 135 mmol/L (136-145)
[2024-07-04 09:48] LABS: Alanine Aminotransferase 19 U/L (12-78); Alkaline Phosphatase 80 U/L (38-126); Aspartate Amino Transferase 25 U/L (14-36); Bilirubin,Total 0.4 mg/dl (0.2-1.3); Blood Urea Nitrogen 7 mg/dl (7-17); Calcium 9.2 mg/dl (8.4-10.2); Creatinine Clearance Estimated 79 mL/min (50-200); Estimated Glomerular Filt Rate 84 ml/min (>60); GFR (African American) 102 ML/MIN (>60); Glucose 105 mg/dl (74-100); Total Protein,Serum 7.9 g/dl (6.3-8.2)
[2024-07-04 09:54] LABS: Anion Gap 13.1 mEq/L (5-15); Carbon Dioxide 34 mmol/L (22.0-30.0)
[2024-07-04 10:19] LABS: Thyroid Stimulating Hormone 6.83 uIU/mL (0.465-4.68)
[2024-07-04] MEDS: SODIUM CHLORIDE 0.9% IV (10:44)
[2024-07-04] MEDS: ATEZOLIZUMAB IV (10:44)
[2024-07-04 11:30] VITALS: BP 135/80; PULSE 77
[2024-07-04] MEDS: SODIUM CHLORIDE 0.9% 50ML BAG 50 ML IV (12:07)
[2024-07-04] MEDS: SODIUM CHLORIDE 0.9% 10ML FLUSH SYRINGE 10 ML IV (12:07)
--- OUTSIDE RECORDS SUMMARY | 2024-07-04 23:04 | XMS_ITS | Data Portability ---
Author Organization [place] [facility] Address [address] [place] [address] Care Team Providers Care Vice President Global Digital Marketing Name Role Phone LALIT PAINTER Referring Provider [phone] RENETTA MAZARIEGOS Radiation Oncologist Assessment Encounter Date Assessment Date Assessment LastModified by Organization Details LastModified Time 10/02/2023 10/02/2023 Radiation Therapy Current Dose:2700 Dose Planned:3000 CHEMOTHERAPYyes last week: Type: REVIEWED: Port Film: Y Dosimetry: Y Isodose: Y [email or web address] Not available 10/02/2023 13:57:00 10/03/2023 10/03/2023 Treatment summary: She was treated with whole-brain radiation with IMRT technique utilizing 6 mV photon beam with hippocampal shielding utilizing 2 arcs received a dose of 3000 cGy delivered by 10 fractions between 09/19/2023 and completed on 10/03/2023. Will return to see us in 1 month for follow-up. Later on she might be candidate for possible consolidation therapy for her lung primary depending on response to chemotherapy. Thanks for allowing us participate in the care of this pleasant patient. [email or web address] Not available 10/03/2023 14:02:25 11/06/2023 11/06/2023 Patient doing reasonably well continued to have severe COPD getting 4 cycles of chemotherapy tomorrow she will check with Dr. Painter about future timing of repeat MRI of the brain has a follow-up as well as CT scan of the chest. In the meantime will see her in 2 months for a follow-up unless she had new developments such as progression of brain metastasis. Also she had good the response to chemotherapy she might be a candidate for adjuvant radiation to her residual disease in the lung. Interview and review of records lasted for 30 minutes. Thanks for allowing us participate in the care of this pleasant patient. [email or web address] Not available 11/06/2023 13:37:05 01/10/2024 01/10/2024 Patient continued to be followed by Dr. Patel will return to see us in 3 months will obtain results of recent MRI of the brain in the future she might need local radiation for residual disease in the lung. Interview and review of records lasted for 30 minutes. Thanks for allowing us participate in the care of this pleasant patient. We reviewed her MRI report on 12/14/2023 showing marked improvement in the previously noted lesions in the brain other lesions are also smaller in size was at least 5 enhancing lesions in the cerebellum and occipital lobes bilaterally the left measure 8 mm in size. At this time will not consider additional brain radiation unless she had more symptoms or focal neurological signs. [email or web address] Not available 01/10/2024 14:10:44 04/04/2024 04/04/2024 Case was discussed with Dr. Painter. The new lesion in the right frontal lobe is too small for consideration of additional stereotactic therapy since benefit might be small might cause some risk at this time we will continue on surveillance she will return to see us in 1 month for a follow-up with a repeat MRI of the brain with and without contrast if there is progression of the lesion right frontal lobe or other new lesions she might be considered for additional therapy for brain metastasis. In the meantime if her primary is controlled with the immunotherapy she might be candidate for consolidation radiation therapy to residual disease in the lungs. Patient is agreeable with this planning. Interview and review her records lasted for 40 minutes. Thanks for allowing us participate in the care of this pleasant patient. [email or web address] Not available 04/04/2024 12:32:20 Plan of Treatment Reminders Order Date Submit Date Provider Last Modified By Organization Details Last Modified Time Details Appointments None recorded. Lab None recorded. Referral None recorded. Procedures None recorded. Surgeries None recorded. Imaging MRI, brain, w/wo contrast - To be scheduled on or around 05/02/20242024 [id number] [facility] [address], [place], [address], 10:17:19 Medication Orders Magic Mouthwash w/ Nystatin 2023 024 [facility], [address] [facility] [place], [id number], 15:28:47 Patient TargetsNo targets recorded. Patient Instructions Encounter Date Encounter Id Patient Instructions Last Modified By Organization Details Last Modified Time 10/02/2023 [id number] Patient tolerating treatments well apart she developed oral mucositis with some blisters in her mouth not related to her brain radiation however she had chemotherapy by Dr. Painter last week they give her magic formula but she was not able to get it from the pharmacy we will order another 1 for her today she will finish her radiation therapy to the brain tomorrow she had no headaches continued to use oxygen continuously. [email or web address] Not available 10/02/2023 13:58:17 Reason for Referral None Reported. Results Created Date Observation Date Name Description Value Unit Range Abnormal Flag Note LastModifiedBy Organization Detail LastModifiedTime 01/10/20 24 12/14/2023 MRI, brain + brain stem, w/ contr ast No observ ation record ed. [facility] Director [facility] Financial Services [address], [place], [address], 01/10/2024 14:01:21 04/16/19 25 03/15/2024 MRI, brain , w/wo contr ast No observ ation record ed. [email or web address] Not Available 03/28 09:44:05 05/24/19 25 04/29/2024 MRI, brain , w/wo contr ast No observ ation record ed. [facility] Director [facility] Financial Services [address], [place], [address], 05/27/2024 07:48:22 Result Notes None recorded. Problems Name Problem SNOMED Code Status Onset Date Resolution Date Notes Provider Name and Address Organization Details Recorded Time Small cell carcinoma of lung 620814930 Active 024 CASEY Acevedo - KATHIE - [place] & [place] 4 09:44:19 Metastatic malignant neoplasm to brain 25283960 Active 024 CASEY Acevedo [facility] & [place] 4 09:44:41 Acute mucositis 284100987 Active 024 CASEY Acevedo [facility] & [place] 4 13:51:43 Problem Notes None recorded. Procedures Surgical History Date Name Laterality Status Provider Name and Address Organization Details Recorded Time 08/31/19 24 endoscopic endobronchial ultrasonography guided transbronchial needle aspiration of mediastinal lymph node completed Fatoumata VÁZQUEZ [facility] & [place] 09/08/2023 10:42:33 08/21/19 24 craniotomy completed Fatoumata VÁZQUEZ [facility] & [place] 09/08/2023 10:42:09 Carpal tunnel surgery completed Fatoumata VÁZQUEZ [facility] & [place] 09/08/2023 10:41:49 Imaging Results Imaging Date Name Status LastModified by Organiz ation Details LastModified Time 12/14/2023 MRI, brain + brain stem, w/ contrast [facility] Director Of Patient Financial Services [address], [place], [address], 01/10/2024 14:01:21 03/15/2024 MRI, brain, [facility] Information not available 04/16/2024 09:44:05 04/29/2024 MRI, brain, w/wo contrast active [facility] Director Of Patient Financial Services [address], [place], [address], 05/27/2024 07:48:22 Procedure Notes None recorded. Medical Equipment None Reported. Allergies Allergen ID Allergen Name Allergen Category Reaction Reaction Severity Criticality Documentation Date Start Date Code Code System Note Provider Name and Address Organization Details Recorded Time 599842 Product containin g penicilli n (product) medicatio n Not available Not available Not available 09/08/2023 62044 8001 SNOMED CASEY Acevedo [facility] & [place] 4 13:53:29 939836 Keflex medicatio n Not available Not available Not available 09/08/202381267 7 RxNorm Fatoumata weller [place] - [facility] - [place] & [place] 4 10:54:06 Medications Name Sig Start Date Stop Date Status Note LastModified by Organization Details LastModified Time Magic Mouthwash w/ Nystatin 10 ml PO Swish and Swallow every 3 hrs PRN 2023 active Not Available Not Available Not Avai lable maalox/diph enhydramine 12.5/5/ lidocaine 2% visc SWISH AND SWALLOW 10ML EVERY THREE HOURS NEEDED active Not Available Not Available No t Available losartan 50 mg tablet active Not Available Not Available No t Available levothyroxi ne 175 mcg tablet active Not Available Not Available Not Available atorvastati n 80 mg tablet active Not Available Not Available Not Available nystatin 100,000 unit/mL oral suspension USE 5 ML BY MOUTH 4 TIMES DAILY FOR 15 DAYS active Not Available Not Available No t Available potassium chloride ER 10 mEq capsule,ext ended release active Not Available Not Available Not Available venlafaxine ER 75 mg capsule,ext ended release 24 hr active Not Available Not Available Not Available doxycycline hyclate 100 mg capsule active Not Available Not Available N ot Available ipratropium 0.5 mg-albutero l 3 mg (2.5 mg base)/3 mL nebulizatio n soln active Not Available Not Available Not Available cetirizine 10 mg tablet Take 1 tablet every day by oral route. active Not Available Not Available No t Available azithromyci n 250 mg tablet TAKE 2 TABLETS BY MOUTH ON DAY 1, AND THEN TAKE 1 TABLET BY MOUTH ONCE A DAY ON DAY 2 THROUGH DAY 5 active Not Available Not Available No t Available nystatin 100,000 unit/gram topical ointment active Not Available Not Available Not Available fluconazole 150 mg tablet active Not Available Not Available Not Available ondansetron HCl 8 mg tablet TAKE 1 TABLET BY MOUTH TWICE DAILY TAKE ON DAY 4 OF CYCLE AND THEN TAKE NEEDED active Not Available Not Available No t Available famotidine 40 mg tablet TAKE 1 TABLET BY MOUTH ONCE DAILY AT BEDTIME active Not Available Not Available No t Available prednisone 20 mg tablet TAKE 3 TABLETS BY MOUTH ONCE DAILY FOR 2 DAYS, THEN 2 TABLETS ONCE DAILY FOR 2 DAYS, THEN 1 TABLET ONCE DAILY FOR 1 DAY 11/05 completed Not Available Not Available Not Available clonazepam 0.5 mg tablet active Not Available Not Available Not Available potassium chloride ER 10 mEq tablet,exte nded release active Not Available Not Available Not Available amlodipine 5 mg tablet active Not Available Not Available Not Available prochlorper azine maleate 10 mg tablet TAKE 1 TABLET BY MOUTH EVERY 6 HOURS NEEDED FOR NAUSEA AND VOMITING active Not Available Not Available No t Available acyclovir 400 mg tablet active Not Available Not Available Not Available levothyroxi ne 25 mcg tablet active Not Available Not Available Not Available bisoprolol fumarate 10 mg tablet active Not Available Not Available No t Available bisoprolol fumarate 5 mg tablet TAKE 1 TABLET BY MOUTH ONCE DAILY AT NIGHT FOR 21 DAYS active Not Available Not Available No t Available verapamil ER 180 mg 24 hr capsule,ext ended release active Not Available Not Available Not Available potassium chloride ER 20 mEq tablet,exte nded release(par t/cryst) active Not Available Not Available Not Available benzonatate 100 mg capsule active Not Available Not Available Not Available doxycycline monohydrate 100 mg capsule TAKE 1 CAPSULE BY MOUTH TWICE DAILY FOR 10 DAYS active Not Available Not Available No t Available dexamethaso ne 2 mg tablet TAKE 1 TABLET BY MOUTH ONCE DAILY FOR 7 DAYS 11/05 completed Not Available Not Available Not Available pantoprazol e 40 mg tablet,chun yed release active Not Available Not Available Not Available dexamethaso ne 4 mg tablet active Not Available Not Available Not Available buspirone 10 mg tablet TAKE 1 TABLET BY MOUTH THREE TIMES DAILY active Not Available Not Available No t Available montelukast 10 mg tablet active Not Available Not Available Not Available levothyroxi ne 200 mcg tablet active Not Available Not Available Not Available hydrochloro thiazide 25 mg tablet active Not Available Not Available No t Available furosemide 20 mg tablet 11/05 completed Not Available Not Available Not Available methylpredn isolone 4 mg tablets in a dose pack active Not Available Not Available Not Available albuterol sulfate HFA 90 mcg/actuati on aerosol inhaler active Not Available Not Available Not Available losartan 50 mg-hydrochl orothiazide 12.5 mg tablet active Not Available Not Available Not Available ketoconazol e 2 % topical cream active Not Available Not Available Not Available losartan 100 mg tablet TAKE 1 TABLET BY MOUTH ONCE DAILY AT NIGHT FOR 21 DAYS active Not Available Not Available No t Available doxycycline hyclate 100 mg tablet active Not Available Not Available No t Available amoxicillin 875 mg-ok alves clavulanate 125 mg tablet TAKE 1 TABLET BY MOUTH TWICE DAILY FOR 1 DAY active Not Available Not Available No t Available oxycodone 5 mg tablet TAKE 1 TABLET BY MOUTH EVERY 4 HOURS NEEDED FOR MODERATE OR SEVERE PAIN (FIRST DO TYLENOL) FOR UP TO 3 DAYS active Not Available Not Available No t Available Vitamin B1 TAKE 1 DAILY 11/05 completed Not Available Not Available Not Available Vitamin B12 1 TAB DAILY 11/05 completed Not Available Not Available Not Available sodium chloride 1,000 mg soluble tablet TAKE 1 TABLET BY MOUTH TWICE DAILY WITH MEALS active Not Available Not Available No t Available naloxone 4 mg/actuatio n nasal spray ADMINISTE R A SINGLE SPRAY IN ONE NOSTRIL UPON SIGNS OF OPIOID OVERDOSE. CALL 911. REPEAT AFTER 3 MINUTES IF NO RESPONSE. active Not Available Not Available No t Available Ozempic 0.25 mg or 0.5 mg (2 mg/1.5 mL) subcutaneou s pen injector 11/05 completed Not Available Not Available Not Available Trelegy Ellipta 200 mcg-62.5 mcg-25 mcg powder for inhalation active Not Available Not Available N ot Available Vitals Date Recorded Oxygen saturation Oxygen saturation in Arterial blood by Pulse oximetry Inhaled oxygen flow rate Heart rate Respiratory rate Systolic blood pressure Diastolic blood pressure Provider Name and Address Organization Details Last Updated DateTime 4 95 % 95 % 4 L/min 86 /min 19 /min 119 mm[Hg] 66 mm[Hg] Fatoumata VÁZQUEZ [facility] 4 13:45:57 Date Recorded Body weight Body temperature Oxygen saturation Oxygen saturation in Arterial blood by Pulse oximetry Heart rate Respiratory rate Systolic blood pressure Diastolic blood pressure Provider Name and Address Organization Details Last Updated DateTime 4 338119. 68 g 97.5 [degF] 98 % 98 % 96 /min 19 /min 125 mm[Hg] 67 mm[Hg] Fatoumata Ron [facility] 4 13:28:04 Date Recorded Body temperature Oxygen saturation Oxygen saturation in Arterial blood by Pulse oximetry Inhaled oxygen flow rate Heart rate Respiratory rate Systolic blood pressure Diastolic blood pressure Provider Name and Address Organization Details Last Updated DateTime 4 97 [degF] 99 % 99 % 3 L/min 82 /min 20 /min 125 mm[Hg] 68 mm[Hg] Fatoumata Lozada [facility] & [place] 4 13:52:57 Date Recorded Body weight Body temperature Oxygen saturation Oxygen saturation in Arterial blood by Pulse oximetry Heart rate Respiratory rate Systolic blood pressure Diastolic blood pressure Provider Name and Address Organization Details Last Updated DateTime 5 56639.2 2 g 97.3 [degF] 95 % 95 % 87 /min 19 /min 154 mm[Hg] 72 mm[Hg] Fatoumatabeth Lozada [facility] & [place] 5 12:14:43 Social History Question Answer Notes LastModified by Organizat ion Details LastModified Time Tobacco Smoking Status Former Smoker Fatoumatabeth Lozada [facility] & [place] 09/08/2023 10:41:23 Do You Or Have You Ever Used E-cigarettes Or Vape? Current User Of Electronic Cigarettes Information not available 09/08/2023 When Did You Quit Smoking? 1-5yearssincel astcigarette 6 Months Ago Information not available 09/08/2023 What Was The Date Of Your Most Recent Tobacco Screening? 09/08/2023 Information not available 09/08/2023 What Is Your Current Pack Years? 30ormorepackye ars 75 Pack Years Information not available 09/08/2023 At What Age Did You Start Smoking Tobacco? 12 Information not available 09/08/2023 How Much Tobacco Do You Smoke? No Information not available 09/08/2023 Has Tobacco Cessation Counseling Been Provided? No Information not available 09/08/2023 How Many Years Have You Smoked Tobacco? 50 Information not available 09/08/2023 Do You Or Have You Ever Used Any Other Forms Of Tobacco Or Nicotine? Yes Information not available 09/08/2023 Sex: Unknown Functional Status None recorded. Mental Status None recorded. Family History Relationship Description Onset Age of this Age Resolved Age Notes LastModified by Organization Details LastModified Time Mother Malignant tumor of breast 85 nparkerrose Not available 08/25 10:38:50 Father Malignant tumor of lung 65 nparkerrose Not available 08/25 10:39:15 Brother Diabetes mellitus nparkerrose Not available 08/25 10:39:33 Sister Diabetes mellitus nparkerrose Not available 08/25 10:39:34 Medical History Condition Response None Y Gynecological HistoryNo gynecological history recorded. Obstetrics History GPAL:G 0 P 0 0 0 0 Past Encounters Encounter ID Performer Location Encounter Start Date Encounter Closed Date Diagnosis/Indication Diagnosis SNOMED-CT Code Diagnosis ICD10 Code Diagnosis Note [id number] [facility] [address] [facility] 09/08/[facility]23 09:37:05 09/08/2023 10:46:00 Small cell carcinoma of lung 070172932 C34.90 Metastatic malignant neoplasm to brain 87296096 C79.31 [id number] Renetta Mazariegos MD [place] [address] 8 09/13/2023 13:19:24 09/13/2023 15:32:20 Metastatic malignant neoplasm to brain 09107613 C79.31 Small cell carcinoma of lung 421324527 C34.90 [id number] [facility] [place] [address] 8 09/19/2023 13:36:21 09/19/2023 14:37:37 Small cell carcinoma of lung 494359690 C34.90 Metastatic malignant neoplasm to brain 74389369 C79.31 [id number] Renetta Mazariegos MD [place] [address] 8 09/20/2023 13:28:45 09/20/2023 14:17:44 Metastatic malignant neoplasm to brain 08838359 C79.31 Small cell carcinoma of lung 179246302 C34.90 [id number] Renetta Mazariegos MD [place] [address] 8 09/21/2023 13:39:23 09/21/2023 14:06:20 Small cell carcinoma of lung 935035698 C34.90 Metastatic malignant neoplasm to brain 24175210 C79.31 [id number] Renetta Mazariegos MD [place] [address] 8 09/24/2023 10:05:25 09/24/2023 10:59:16 Metastatic malignant neoplasm to brain 43262477 C79.31 Small cell carcinoma of lung 502606554 C34.90 [id number] Renetta Mazariegos MD [place] [address] 8 09/25/2023 08:19:34 09/25/2023 09:39:32 Small cell carcinoma of lung 041399178 C34.90 Metastatic malignant neoplasm to brain 10106653 C79.31 [id number] Renetta Mazariegos MD [place] [address] 8 09/22/2023 10:50:20 09/22/2023 11:24:40 Metastatic malignant neoplasm to brain 15713267 C79.31 [id number] Renetta Mazariegos MD [place] [address] 8 09/26/2023 08:24:03 09/26/2023 09:27:30 Metastatic malignant neoplasm to brain 72014206 C79.31 Small cell carcinoma of lung 341052025 C34.90 [id number] Renetta Mazariegos MD [place] [address] 8 09/27/2023 08:12:42 09/27/2023 11:08:08 Small cell carcinoma of lung 860288532 C34.90 Metastatic malignant neoplasm to brain 31515040 C79.31 [id number] Renetta Mazariegos MD [place] [address] 8 10/02/2023 13:36:53 10/02/2023 14:14:11 Small cell carcinoma of lung 323474260 C34.90 Metastatic malignant neoplasm to brain 90841613 C79.31 Acute mucositis 54823134 8 K12.30 [id number] Renetta Mazariegos MD [place] [address] 8 10/03/2023 13:36:12 10/03/2023 15:41:36 Small cell carcinoma of lung 871420578 C34.90 Metastatic malignant neoplasm to brain 91815000 C79.31 [id number] Renetta Mazariegos MD [place] [address] 8 11/06/2023 13:00:38 11/06/2023 14:00:15 Small cell carcinoma of lung 362541662 C34.90 Metastatic malignant neoplasm to brain 28587513 C79.31 [id number] Renetta Mazariegos MD [place] [address] 8 01/10/2024 13:38:12 01/10/2024 15:03:23 Metastatic malignant neoplasm to brain 91827281 C79.31 Small cell carcinoma of lung 866943943 C34.90 [id number] Renetta Mazariegos MD [place] [address] 8 04/04/2024 11:58:19 04/04/2024 12:41:56 Metastatic malignant neoplasm to brain 71043630 C79.31 Small cell carcinoma of lung 360414538 C34.90 Health Concerns Section Related Observation LastModified by Organization Detai ls LastModified Time None Recorded Concern Status LastModified by Organization Details LastModified Time None Recorded Advance Directives Directive None Recorded Payers Encounter Date Sequence Insurance Name Policy Number Policy Richards Covered Member ID Richards Member ID Guarantor Name 10/02/2023 2 [place] [id number] Shantal Stanford [id number] Shantal Stanford 10/02/2023 1 [place] Shantal Stanford [id number] Shantal Stanford 10/03/2023 2 [place] [id number] Shantal Welch Bach [id number] Shantal Stanford 10/03/2023 1 [place] Shantal L Bach [id number] Shantal Stanford 11/06/2023 2 [place] [id number] Shantal L Bach [id number] Shantal Stanford 11/06/2023 1 [place] Shantal L Bach [id number] Shantal Stanford 01/10/2024 2 [place] [id number] Shantal L Bach [id number] Shantal Stanford 01/10/2024 1 [place] Shantal L Bach [id number] Shantal Stanford 04/04/2024 2 [place] [id number] Shantal L Bach [id number] Shantal Stanford 04/04/2024 1 [place] Shantal Welch Bach [id number] Shantal Stanford Notes Date Note Type Note Provider Name and Address Organization Details Recorded Time 10/03/2023 text/html Patient complete d her radiation and was well tolerated with no side effects.She will return to see us in 1 month for a follow-up where she continue her chemotherapy under the care of Dr. 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 Painter tomorrow for the 4 cycles she continued to have severe COPD using oxygen 24 hours has no cough no hemoptysis no chest pain no headaches except pain in the left occipital sites at post previous craniotomy she has no focal sensory or motor changes no other complaints. 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 Painter the results will be obtained she is going to see Dr. Orozco tomorrow probably will be restarted on immunotherapy had history of COPD on 24 hour use of oxygen no significant headaches no visual disturbance no motor or sensory changes in the upper or lower limbs. eRnetta Mazariegos MD [address], [place], [address], [facility] & [place] 01/10/2024 14:10:49 04/04/2024 text/html Thanks Dr. Painter for allowing us to evaluate Mrs. 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 Recent MRI of the brain with and without contrast on 03/15/2024 as a follow-up showed other metastatic previously treated lesions are stable without evidence of hemorrhage or significant mass effect whenever there was a new enhancing 2 mm focus in the right frontal lobe. Patient came to see us for possibility of any need for additional radiation therapy to the brain especially the right frontal lobe 2 mm lesions. Patient had no new symptoms apart from numbness in the outer to fingers of both hands she has no headaches no visual disturbance no cough she remain on oxygen 24 hours a day for her COPD no difficulty walking. No memory loss. Renetta Mazariegos MD [address], [place], [address], [place] [facility] & [place] 04/04/2024 12:32:39 OBGyn Episode No OBEpisode recorded.
== END 2024-07-04 12:08 | disposition home or self-care (01) ==
LOC: INF 09:16
PROVIDERS: PCP Internal Medicine Adolescent Medicine; Visit Provider Internal Medicine Medical Oncology
DX: Z51.11 Encounter for antineoplastic chemotherapy (principal); C34.11 Malignant neoplasm of upper lobe, right bronchus or lung
CPT/HCPCS: 80053; 82024; 82533; 84443; 85025; 96413; J7050; J9022

== ENCOUNTER 2024-07-05 15:04 | Inpatient (IN) | payer MEDICARE, BC, SELFPAY ==
[2024-07-05] VITALS (9 sets, daily range): BP systolic 98–125; BP diastolic 53–62; PULSE 72–121; RESP 18–29; TEMP 36.7–37.4; O2SAT 93–98; BMI 33.3; BMI 33.6
--- NOTE | 2024-07-05 15:25 | ECG_ITS ---
APPROVED REPORT Exam: Resting ECG HR:118 bpm ECG Measurements Heart Rate [address] 152 P -44 QRSd 94 QRS 39 QT 434 T 63 QTc 504 Conclusion Sinus tachycardia No obvious acute ischemic change Electronically signed by : SINAN FERGUSON, 07/05/2024 19:51:24
--- NOTE | 2024-07-05 15:27 | XR_ITS ---
FINAL REPORT CLINICAL HISTORY: weak, unsteady COMPARISON: 04/20/2023 FINDINGS: Consolidation in the right upper lobe abutting the minor fissure is compatible with pneumonia. The left lung is clear. Mediastinum is unremarkable. Heart size is normal. IMPRESSION: Lobar pneumonia right upper lobe. Continued chest imaging follow-up recommended. Reviewed, Interpreted and Dictated by Stone Donnelly MD Transcribed by Millie Barclay Authenticated and [facility]
[2024-07-05 15:40] LABS: Microscopic, Urine URINE MICROSCOPIC (MICROSCOPIC)
--- NOTE | 2024-07-05 15:41 | CT_ITS ---
PROCEDURE INFORMATION: Exam: CT Head Without And With Contrast Exam date and time: 07/05/2024 4:40 PM Age: 63 years old Clinical indication: Altered mental status/memory loss; Additional info: Fall, AMS, screen for progression of disease TECHNIQUE: Imaging protocol: Computed tomography of the head without and with contrast. Radiation optimization: All CT scans at this facility use at least one of these dose optimization techniques: automated exposure control; mA and/or kV adjustment per patient size (includes targeted exams where dose is matched to clinical indication); or iterative reconstruction. Contrast material: ISOVUE; Contrast volume: 100 ml; Contrast route: IV; COMPARISON: No relevant prior studies available. FINDINGS: Brain: No acute intracranial hemorrhage. No midline shift or significant intracranial mass effect. No definite pathologic intracranial enhancement. There is asymmetric low density at the left cerebellum. Small focus of left occipital lobe encephalomalacia. Cerebral ventricles: No ventriculomegaly. Paranasal sinuses: Mild paranasal sinus disease. Mastoid air cells: Partial opacification of the bilateral mastoid air cells. Bones: Left calvarial postoperative change. No acute fracture. Soft tissues: Unremarkable. IMPRESSION: 1. Metastatic disease described on report for MRI brain dated 04/29/2024 poorly demonstrated on current study secondary to technique. MRI brain with and without may be considered. 2. Asymmetric low density at the left cerebellum. This would also be better evaluated with MRI. 3. Negative for acute intracranial hemorrhage.
[2024-07-05 15:42] LABS: Basophils # 0.1 K/mm3 (0-0.2); Basophils % 0.3 % (0.1-2.0); Hematocrit 31.2 % (37.0-47.0); Hemoglobin 10.3 g/dL (12.2-16.2); Lymphocytes % 4.4 % (10-50); Mean Corpuscular Hemoglobin 32.1 pg (27.0-31.2); Mean Corpuscular Volume 97.2 fl (81-99); Mean Platelet Volume 8.7 fl (7.4-10.4); Monocytes # 1.3 K/mm3 (0.1-1.0); Monocytes % 5.8 % (1.7-9.3); Neutrophils # 20.3 K/mm3 (1.8-7.8); Neutrophils % 88.4 % (37.0-80.0); Nucleated Red Blood Cells # 0 10^3/uL; Nucleated Red Blood Cells % 0 %; Platelet Count 182 K/mm3 (142-424); Red Blood Count 3.21 M/mm3 (4.20-5.40); Red Cell Distribution Width 12.8 % (11.5-17.5); Red Cell Distribution Width-SD 45.5 fL; White Blood Count 22.9 K/mm3 (4.8-10.8)
[2024-07-05 15:44] LABS: MANUAL DIFFERENTIAL MANUAL DIFFERENTIAL (MANUAL DIFF)
[2024-07-05 15:44] LABS: VBG Base Excess 1.7 mmol/L (-2.4-2.3); VBG HCO3 25.9 mmol/L (23-30); VBG Oxygen Saturation 96.3 % (50-70); VBG PH 7.44 mmol/L (7.31-7.41); VBG PO2 84.2 mmol/L (28-40); VBG Total CO2 27.1 mmol/L (23-27)
[2024-07-05 15:45] LABS: Appearance,Urine CLEAR (Clear); Blood, Urine Negative (Negative); Color,Urine YELLOW (Yellow); Glucose,Urine (UA) Negative (Negative); Ketones,Urine 1+ (Negative); Leukocyte Esterase,Urine Negative (Negative); Nitrate,Urine Negative (Negative); Protein,Urine 2+ (Negative)
[2024-07-05 15:48] LABS: Specific Gravity, Urine 1.025 (1.005-1.030)
[2024-07-05 15:52] LABS: Albumin Level 3.9 g/dl (3.5-5.0); Chloride 89 mmol/L (98-107); Sodium 129 mmol/L (136-145)
[2024-07-05 15:54] LABS: Lactate Venous 4.2 mmol/L (0.4-2.0)
[2024-07-05 15:55] LABS: Alanine Aminotransferase 31 U/L (12-78); Alkaline Phosphatase 64 U/L (38-126); Aspartate Amino Transferase 37 U/L (14-36); Bilirubin,Total 1.3 mg/dl (0.2-1.3); Blood Urea Nitrogen 24 mg/dl (7-17); Calcium 8.5 mg/dl (8.4-10.2); Carbon Dioxide 29 mmol/L (22.0-30.0); Creatinine Clearance Estimated 35 mL/min (50-200); Estimated Glomerular Filt Rate 21 ml/min (>60); GFR (African American) 26 ML/MIN (>60); Globulin 3.9 g/dL (1.3-3.2); Glucose 117 mg/dl (74-100); Total Protein,Serum 7.8 g/dl (6.3-8.2)
[2024-07-05 16:01] LABS: Activated Partial Thrombo Time 29.7 seconds (22.8-30.6)
[2024-07-05 16:02] LABS: Magnesium 0.9 mg/dl (1.6-2.3)
[2024-07-05 16:03] LABS: INR 1.11 (0.9-1.1); Prothrombin Time 12.3 seconds (10.1-12.5)
[2024-07-05 16:05] LABS: Bilirubin,Urine 1+ (Negative)
[2024-07-05 16:11] LABS: Troponin I < 0.01 ng/ml (0.00-0.034)
[2024-07-05] MEDS: MAGNESIUM OXIDE 400MG TABLET 800 MG PO (16:12)
[2024-07-05] MEDS: LACTATED RINGERS 1000ML 1,710 ML 855 ML IV (16:12)
[2024-07-05 16:14] LABS: T4 (Thyroxine) 7.1 ug/dl (5.53-11.0)
--- NOTE | 2024-07-05 16:23 | HMH.EDGENADL ---
Discharge Plan Disposition Patient Disposition: Admitted Chief Complaint: Weakness Prescriptions Prescriptions: No Action fluconazole 150 mg tablet 150 mg PO Q3D Qty: 3 0RF amlodipine 5 mg tablet 5 mg PO DAILY clonazepam 0.5 mg tablet 0.5 mg PO DAILY losartan 100 mg tablet 100 mg PO DAILY naloxone 4 mg/actuation spray,non-aerosol 4 mg intranasal DIRECTED losartan 50 mg tablet 50 mg PO DAILY venlafaxine 75 mg capsule,extended release 24hr 75 mg PO QAM bisoprolol fumarate 5 mg tablet 5 mg PO DAILY levothyroxine 175 mcg tablet 175 mcg PO DAILY Qty: 90 3RF albuterol sulfate 90 mcg/actuation HFA aerosol inhaler 1 inh INHALATION QID PRN (Reason: shortness of breath or wheezing) 90 Days Qty: 8.5 3RF ipratropium-albuterol 0.5 mg-3 mg(2.5 mg base)/3 mL solution for nebulization 3 ml INHALATION QID PRN (Reason: shortness of breath or wheezing) Qty: 90 6RF Trelegy Ellipta 200-62.5-25 mcg blister with device 1 inh INHALATION DAILY 90 Days Qty: 60 3RF acyclovir 400 mg tablet 400 mg PO DAILY Qty: 30 5RF Rx Instructions: take one tablet daily buspirone 10 MG tablet 10 mg PO BID montelukast 10 MG tablet 10 mg PO PM albuterol sulfate 90 mcg/actuation HFA aerosol inhaler 4 inh inhalation Q4H PRN (Reason: shortness of breath or wheezing) Qty: 8.5 0RF Rx Instructions: 4 puffs every 4 hours for 48 hours then as needed for shortness of breath or wheezing following atorvastatin 80 MG tablet 80 mg PO HS pantoprazole 40 MG tablet,delayed release (DR/EC) 40 mg PO HS bisoprolol fumarate 10 mg tablet 10 mg PO DAILY verapamil 180 mg capsule,ext rel. pellets 24 hr 180 mg PO DAILY potassium chloride 20 mEq tablet,ER particles/crystals 30 meq PO DAILY Referrals Follow up/Referrals: Mango Albert MD [Primary Care Provider] - See instructions Clinical Impressions Clinical Impression: Sepsis, Right upper lobe pneumonia, Acute hyponatremia, Hypomagnesemia Print Language Print Language: Samoan Discharge ED Provider: Jerman Cuadra General Adult HPI General Chief complaint: Weakness Stated complaint: unsteady gait,confused,fell Time Seen by Provider: 07/05/24 15:17 Mode of Arrival: Wheelchair Source of Information: Patient and Relative Description of Symptoms (Recalled from ER Triage Doc. by RN): pt presents to ED with sister for inability to walk, confusion, weakness. symptoms began yesterday. History of Present Illness HPI narrative: Please note that above description of symptoms, in this electronic medical record under categorization of recalled from ER triage doctor by RN are reflective of an initial nursing assessment, however, is not reflective of my full history and physical exam that was personally taken and clarified. Consequentially, this preceding description of symptoms, which may include the patient's categorized chief complaint in the EMR, do not reflect my personal clinical impression, and the ultimate description of history of present illness and patient stated complaints should be deferred to this section of the note. Unless stated otherwise or congruent with this section of the note, additional signs, symptoms, or incongruence should be interpreted as inaccurate with my clinical impression. Related Data Home Medications ?Medication ?Instructions ?Recorded ?Confirmed atorvastatin 80 mg tablet 80 mg PO HS Cholesterol 06/10/18 07/04/24 pantoprazole 40 mg tablet,delayed 40 mg PO HS GERD 06/10/18 07/04/24 release buspirone 10 mg tablet 10 mg PO BID MOOD 04/06/20 07/04/24 montelukast 10 mg tablet 10 mg PO PM Breathing problems 04/06/20 07/04/24 amlodipine 5 mg tablet 5 mg PO DAILY 05/11/23 07/04/24 clonazepam 0.5 mg tablet 0.5 mg PO DAILY 09/06/23 07/04/24 losartan 100 mg tablet 100 mg PO DAILY 09/06/23 07/04/24 naloxone 4 mg/actuation nasal spray 4 mg intranasal DIRECTED 09/06/23 07/04/24 bisoprolol fumarate 5 mg tablet 5 mg PO DAILY 11/28/23 07/04/24 losartan 50 mg tablet 50 mg PO DAILY 11/28/23 07/04/24 venlafaxine 75 mg capsule,extended 75 mg PO QAM 11/28/23 07/04/24 release 24 hr bisoprolol fumarate 10 mg tablet 10 mg PO DAILY 05/02/24 07/04/24 potassium chloride 20 mEq 30 meq PO DAILY 05/02/24 07/04/24 tablet,extended release(part/cryst) verapamil 180 mg 24 hr 180 mg PO DAILY 05/02/24 07/04/24 capsule,extended release Previous Rx's ?Medication ?Instructions ?Recorded albuterol sulfate 90 mcg/actuation 1 inh inhalation QID PRN shortness 08/12/20 aerosol inhaler of breath or wheezing 90 days #8.5 grams fluticasone fur. 200 mcg-umeclid 1 inh inhalation DAILY 90 days #60 08/12/20 62.5 mcg-vilant 25 mcg ea inhalat.powder (Trelegy Ellipta) ipratropium 0.5 mg-albuterol 3 mg 3 ml inhalation QID PRN shortness 08/12/20 (2.5 mg base)/3 mL nebulization of breath or wheezing #90 mL soln albuterol sulfate 90 mcg/actuation 4 inh inhalation Q4H PRN shortness 01/12/23 aerosol inhaler of breath or wheezing #8.5 grams levothyroxine 175 mcg tablet 175 mcg PO DAILY thyroid #90 tabs 11/29/23 acyclovir 400 mg tablet 400 mg PO DAILY Infection #30 tabs 12/06/23 fluconazole 150 mg tablet 150 mg PO Q3D 3 doses #3 tabs 04/11/24 Allergies Allergy/AdvReac Type Severity Reaction Status Date / Time cephalexin (From KEFLEX) Allergy Mild Verified 07/04/24 09:51 Penicillins Allergy Mild Verified 07/04/24 09:51 [facility] Disclaimer: The information contained in this section may have been updated after the patient was seen, as this information can be updated by other users. Medical History Depression Anxiety Urinary tract infection Diabetes mellitus, type 2 Asthma Hyperlipidemia Hypertension Sinus tachycardia Elevated left ventricular end-diastolic pressure (LVEDP) Abnormal echocardiogram Family history of heart disease Dizziness Dyspnea COPD (chronic obstructive pulmonary disease) Surgical History History of thyroid surgery History of surgery on upper extremity History of tubal ligation H/O dilation and curettage Family History Other Asthma COPD (chronic obstructive pulmonary disease) Cancer Diabetes Heart attack Hypertension Stroke Social History Smoking Status: Former smoker tobacco type: cigarettes packs per day: 1 second hand exposure: Yes alcohol intake: never current occupational status: unemployed Travel in the last 8 weeks: None household members: other housing: house caffeine: Yes Have you lived/traveled outside US in past 30 days?: No Contact w/someone who lives/traveled outside US past 30 days?: No Exposure to someone with infectious disease in past 14 days?: No Do you have a fever (greater than 100.4 F or 38 C)?: No Have you tested positive for COVID-19: No Exposed to someone with COVID-19 in past 14 days?: No Do you have a sore throat?: No Do you have a cough?: No Do you have any weakness?: No Do you have any diarrhea?: No Are you experiencing any unusual bleeding?: No Do you have any muscle aches/pain?: No Do you have any abdominal pain?: No Are you experiencing loss of taste or smell?: No Other Medical History Have you received the Flu Vaccine for this season: Yes Have you received the Pneumonia Vaccine: No ROS Obtained: Yes All systems reviewed & no additional complaints except as documented Physical Exam General General appearance: alert and in no apparent distress Head Head exam: atraumatic and normocephalic Eye Eye exam: Present normal appearance, PERRL and EOMI Neck Neck exam: Present normal inspection, full ROM and trachea midline Respiratory Respiratory exam: Present wheezes (Isolated wheezes right upper lobe anteriorly and posteriorly); Absent respiratory distress, stridor, accessory muscle use or prolonged expiratory phase Cardiovascular Cardiovascular exam: Present normal rhythm, tachycardia and other (Pulses equal symmetric in upper and lower extremities) Abdominal Exam Abdominal exam: Present soft; Absent distention, tenderness or pulsatile mass Extremities Exam Extremities exam: Absent edema Neurological Exam Neurological exam: Present alert, oriented X3 and CN II-XII intact; Absent motor sensory deficit Skin Skin exam: Present warm and dry; Absent diaphoresis or erythema Medical Decision Making Medical Records Medical records reviewed: Yes I reviewed the patient's medical records. Screening: Per USPSTF and CDC recommendations, given the prevalence of disease in our region, it is our hospital?s policy to screen for HIV and viral Hepatitis for all patients aged 18 and over and those with ongoing risk factors. Papa Inquiry Pt receiving controlled substance: No Papa was queried for this patient: No Vital Signs: 07/05/24 15:39 07/05/24 16:00 07/05/24 16:30 Temperature 99.4 F Temperature Source Oral Pulse Rate 121 H 112 H Pulse Rate [Left Radial] 118 H Respiratory Rate 29 H 20 Blood Pressure 100/57 L 101/61 L Blood Pressure [Right Arm] 117/62 Blood Pressure Mean [Right Arm] 80 02 Sat by Pulse Oximetry 97 95 97 Oxygen Delivery Method Nasal Cannula Room Air Room Air Oxygen Flow Rate (LPM) 4 Lab Data Lab Results 07/05/24 15:35: WBC 22.9 H* D, RBC 3.21 L, Hgb 10.3 L, Hct 31.2 L, MCV 97.2, MCH 32.1 H, MCHC 33.0, RDW 12.8, Plt Count 182, MPV 8.7, Neut % (Auto) 88.4 H, Lymph % (Auto) 4.4 L, [place] % (Auto) 5.8, Eos % (Auto) 0.0 L, Baso % (Auto) 0.3, Neut # (Auto) 20.3 H, Lymph # (Auto) 1.0, [place] # (Auto) 1.3 H, Eos # (Auto) 0.0, Baso # (Auto) 0.1, Total Counted 100, Neutrophils % (Manual) 76, Band Neutrophils % 3.0, Lymphocytes % (Manual) 7 L, Monocytes % (Manual) 6, Metamyelocytes % 5.0 H, Myelocytes % 3 H, Platelet Estimate Normal, Giant Platelets 1+, Polychromasia 1+, Poikilocytosis 1+, Basophilic Stippling 1+, Target Cells 1+, Stomatocytes 1+, PT 12.3, INR 1.11 H, APTT 29.7, Sodium 129 L, Potassium 4.0, Chloride 89 L, Carbon Dioxide 29, Anion Gap 15.0, BUN 24 H D, Creatinine 2.30 H D, Estimated Creat Clear 35, Estimated GFR 21 L, Est GFR ( Amer) 26 L D, Glucose 117 H, Calcium 8.5, Magnesium 0.9 L, Total Bilirubin 1.3, AST 37 H D, ALT 31 D, Alkaline Phosphatase 64, Troponin I < 0.01, Total Protein 7.8, Albumin 3.9, Globulin 3.9 H, Albumin/Globulin Ratio 1.0 L, TSH 5.65 H, Thyroxine (T4) 7.1, HCV Ab NEEL w/Rflx PCR Qn Negative, HIV Ag/Ab Combo Qual Negative 07/05/24 15:39: VBG pH 7.44 H, VBG pCO2 39.0, VBG pO2 84.2 H, VBG HCO3 25.9, VBG Total CO2 27.1 H, VBG O2 Saturation 96.3 H, VBG Base Excess 1.7, VBG Lactic Acid 4.2 H, Urine Color Yellow, Urine Appearance Clear, Urine pH 5.0, Ur Specific [place] 1.025, Urine Protein 2+ A, Urine Glucose (UA) Negative, Urine Ketones 1+, Urine Blood Negative, Urine Nitrate Negative, Urine Bilirubin 1+ A, Urine Urobilinogen 1.0, Ur Leukocyte Esterase Negative, Urine RBC None, Urine WBC 5-10, Ur Squamous Epith Cells 3-5, Calcium Oxalate Crystal 1+, Urine Bacteria 4+, Fine Granular Casts 3-5, Coarse Granular Casts 3-5 07/05/24 15:35 07/05/24 15:35 Orders (Tests/Meds): ED MEDICATIONS Generic Name Dose Route Start Last Admin Trade Name Freq PRN Reason Stop Dose Admin Lactated Ringer's 1,710 mls @ 855 mls/hr 07/05/24 15:49 07/05/24 16:12 Lactated Ringer's 1000 Ml Bag 30 ml/kg infuse over 2 hr (1710 ml) 07/05/24 17:48 855 mls/hr IV Administration .Q2H ONE Vancomycin/PEG/NA[place]/Lysine/Water 1.5 gm in 300 mls @ 150 mls/hr 07/05/24 16:00 Vancomycin 1.5gm/300ml (Peg) Premix IV 07/05/24 17:59 ONCE ONE Miscellaneous 1 each 07/05/24 16:00 07/05/24 16:36 Vancomycin Consult Request NOTAPPLIC 08/04/24 15:59 1 each [facility] Administration Discontinued Medications Generic Name Dose Route Start Last Admin Trade Name Freq PRN Reason Stop Dose Admin Lactated Ringer's 1,000 mls @ 999 mls/hr 07/05/24 15:31 07/05/24 16:05 Lactated Ringer's 1000 Ml Bag IV 07/05/24 16:31 Not Given .Q1H1M ONE Levofloxacin/Dextrose 750 mg in 150 mls @ 100 mls/hr 07/05/24 15:49 Levofloxacin 750mg/150ml Premix IV 07/05/24 17:18 ONCE ONE Metronidazole 500 mg in 100 mls @ 100 mls/hr 07/05/24 15:49 07/05/24 16:54 Flagyl 500mg/100ml Ivpb IV 07/05/24 16:48 100 mls/hr ONCE ONE Administration Magnesium Sulfate 2 gm in 50 mls @ 50 mls/hr 07/05/24 16:02 07/05/24 16:30 Magnesium Sulfate 2gm/50ml Premix IV 07/05/24 17:01 50 mls/hr ONCE ONE Administration Magnesium Sulfate 2 gm in 50 mls @ 50 mls/hr 07/05/24 16:03 07/05/24 17:40 Magnesium Sulfate 2gm/50ml Premix IV 07/05/24 17:02 50 mls/hr ONCE ONE Administration Iopamidol 100 ml 07/05/24 16:45 07/05/24 16:46 Iopamidol-370 (76%);100ml Bottle IV 07/05/24 16:46 100 ml ONCE ONE Administration Magnesium Oxide 800 mg 07/05/24 16:02 07/05/24 16:12 Magnesium Oxide 400mg Tablet PO 07/05/24 16:03 800 mg ONCE ONE Administration Sodium Chloride 10 ml 07/05/24 16:45 07/05/24 16:46 Sodium Chloride 0.9% 10ml Syr (Rad Only) IV 07/05/24 16:46 10 ml ONCE ONE Administration ORDERS Category Date Time Status CT head/brain wo/w con Stat Cat Scan 07/05/24 15:41 Completed XR chest portable Stat Exams 07/05/24 15:27 Completed Complete Blood Count Auto Diff Stat Lab 07/05/24 15:35 Completed Comprehensive Metabolic Panel Stat Lab 07/05/24 15:35 Completed HIV Combo Stat Lab 07/05/24 15:35 Completed Hepatitis C Ab Qual. W/ RFX Stat Lab 07/05/24 15:35 Completed Magnesium Stat Lab 07/05/24 15:35 Completed PT INR [Prothrombin Time INR] Stat Lab 07/05/24 15:35 Completed PTT [Activated Partial Thrombo Time] Stat Lab 07/05/24 15:35 Completed T4 (Thyroxine) Stat Lab 07/05/24 15:35 Completed TSH [Thyroid Stimulating Hormone] Stat Lab 07/05/24 15:35 Completed Troponin I Q3H Lab 07/05/24 18:30 Ordered Troponin I Q3H Lab 07/05/24 21:30 Ordered Troponin I Stat Lab 07/05/24 15:35 Completed Urinalysis and Microscopic Stat Lab 07/05/24 15:39 Completed Blood Culture Stat Micro 07/05/24 16:25 Received Urine Culture Stat Micro 07/05/24 15:39 Received Venous Blood Gas Stat RT 07/05/24 15:39 Completed Medical Decision Narrative: 63-year-old female history of high tension hyperlipidemia, COPD, 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 Family states that patient has been getting progressively weak over the past few days. Yesterday, family walked in and saw patient laying on the floor with her back and head against a chair. Patient has been acting normally, but has been extremely weak, intermittently confused, and not really eating or drinking much. Patient denies any current symptoms. History was obtained via conversation with patient and family. On arrival, patient hemodynamically stable, alert, oriented to person and place, appropriate, GCS 15, moving all extremities spontaneously, pupils equal and reactive to light. Full physical exam performed and significant for chronically ill-appearing female no acute distress. Isolated right upper lobe wheezes, otherwise normal breath sounds. Abdomen is soft, nontender, nondistended. Cardiac exam tachycardic, but no murmurs gallops or rubs. No lower extremity edema.. Differential includes pneumonia, UTI, sepsis, metabolic abnormality, endocrinologic abnormality, progression of disease, intracranial hemorrhage, intracranial mass, among others. Patient placed on continuous cardiac monitoring and continuous pulse ox with initial blood pressure 117/62, heart rate 118, saturation 97% on 4 L nasal cannula breathing about 30 times per minute. Independent interpretation of EKG shows sinus tachycardia 118 bpm with VA 152, QRS 94, QTc 504. No acute ischemic change and normal axis. Chest x-ray performed. On independent interpretation, patient has a large lobar pneumonia in the right upper lobe. Patient was given sepsis fluid bolus, vancomycin, Levaquin, Flagyl for symptomatic management and correction of underlying abnormalities. Workup independently interpreted and significant for leukocytosis nearly 23,000 with elevated neutrophils and monocytes. Patient's coags normal. VBG with mild alkalosis, but normal CO2, normal bicarb. Lactic acidosis of 4.2. Patient also has mild hyponatremia acutely 129 down from 135 just yesterday. Creatinine elevated at 2.3 and BUN 24. Patient's magnesium low at 0.9, this was repleted IV and p.o. with 4 g IV and 800 mg p.o. magnesium oxide. Urinalysis nonactionable. On independent interpretation of CT imaging, no intracranial abnormality. See radiology read for full review of final results. On reevaluation, patient vital signs significantly improved including blood pressure and heart rate. Still mentating appropriately. Tissue perfusion reassessment performed within 3 hours, patient mentating, following commands, good capillary refill and hemodynamically stable. Hospital medicine contacted and case was discussed at length for admission for altered mental status, weakness in the setting of lobar pneumonia, hypomagnesemia and hyponatremia. Because patient high risk for clinical decompensation, deemed appropriate for inpatient admission. Results were relayed to patient who voiced understanding and patient was agreeable to inpatient admission and management. Patient was admitted to the hospital for further definitive management. Over Short And Damage Clerk disclaimer Much of this encounter note is an electronic finisher merchant products spoken language to printed text. Electronic finisher merchant products of the spoken language may permit errors. Although I have reviewed the note, some errors may still exist. Critical Care Critical Care Time Critical Care Time: Yes (sepsis) Attestation: On 07/05/24, the high probability of a clinically significant, sudden or life threatening deterioration of the following system(s) required my full and direct attention, intervention and personal management. The time I documented below is in addition to time spent performing reported procedures but includes the following listed in this critical care notation. Total Time Total Critical Care Time: 35
[2024-07-05 16:27] LABS: Thyroid Stimulating Hormone 5.65 uIU/mL (0.465-4.68)
[2024-07-05] MEDS: MAGNESIUM SULFATE IN WATER 2 GM/50 ML PIGGYBACK IV ×2 (16:30→17:40)
[2024-07-05 16:34] LABS: Bacteria,Urine 4+ /lpf; Calcium Oxalate Crystals,Urine 1+ /lpf
[2024-07-05] MEDS: VANCOMYCIN CONSULT REQUEST 1 EACH NOTAPPLIC (16:36)
[2024-07-05] MEDS: SODIUM CHLORIDE 0.9% 10ML SYR (RAD ONLY) 10 ML IV (16:46)
[2024-07-05] MEDS: IOPAMIDOL-370 (76%);100ML BOTTLE 100 ML IV (16:46)
[2024-07-05] MEDS: METRONIDAZ/SOD CHL 500 MG/100 ML PIGGYBACK 100 MG IV (16:54)
[2024-07-05 17:07] LABS: HIV Combo NEGATIVE (Negative)
[2024-07-05 17:15] LABS: Hepatitis C Ab Qual. W/ RFX NEGATIVE (Negative)
[2024-07-05 17:21] LABS: Lymphocytes % 7 % (10-50); Monocytes % 6 % (2-9); Total Cells Counted 100
[2024-07-05 17:22] LABS: Platelet Estimate Normal; Poikilocytosis 1+
[2024-07-05 17:23] LABS: Basophilic Stippling 1+; Stomatocytes 1+; Target Cells 1+
[2024-07-05 17:24] LABS: Polychromasia 1+
[2024-07-05 17:25] LABS: Giant Platelets 1+; Myelocytes % 3 (0-1); Neutrophils % 76 % (42-76)
[2024-07-05] MEDS: LEVOFLOXACIN/D5W 750 MG/150 ML 750 MG/150 ML PIGGYBACK 100 MG IV (18:17)
--- NOTE | 2024-07-05 18:18 | PC.NURSE ---
report called to pedrito on second floor
--- NOTE | 2024-07-05 18:37 | PC.NURSE ---
arrived by stretcher from ED
--- NOTE | 2024-07-05 18:45 | PC.NURSE ---
. speaking with patient.
[2024-07-05 19:13] LABS: Troponin I < 0.01 ng/ml (0.00-0.034)
--- NOTE | 2024-07-05 19:15 | PC.NURSE ---
Aox 3, up with assistance times 2 to chair, bed alarm active, 20g l ac sl, 20g r ac LR @ 5O, report give to night nurse.
[2024-07-05 19:53] LABS: Reflex Lactic Add Lactic Reflex
[2024-07-05] MEDS: VANCOMYCIN/WATER FOR INJ (PEG) 1.5 GM/300 ML PIGGYBACK IV (20:48)
--- NOTE | 2024-07-05 21:15 | PC.NURSE ---
Patient is unsure of medications she takes at home, stated sister has access to medications, called sister, sister looked throughout house and is unsure of where her medications and she has no idea what she takes. Med rec completed based on external list.
--- NOTE | 2024-07-05 21:18 | PC.NURSE ---
Patient alert and oriented. When asking admission questions, ask who patient would want use to call if she could not maker her own decisions, patient stated nobody.
[2024-07-05 22:07] LABS: Troponin I < 0.01 ng/ml (0.00-0.034)
[2024-07-05 23:38] LABS: Reflex Lactic (2 hrs) Add Lactic Reflex
[2024-07-06] VITALS (9 sets, daily range): BP systolic 110–137; BP diastolic 57–70; PULSE 90–106; RESP 16–18; TEMP 36.4–36.8; O2SAT 92–98; BMI 34.0
[2024-07-06 00:10] LABS: Lactic Acid Follow up (RFLX 2) 2.5 mmol/L (0.7-2.1)
--- NOTE | 2024-07-06 03:11 | P.HP_ITS ---
<Statement entered by Aditya Hawthorne MD - 07/06/24 14:07> I personally examined the patient and agree with the plan of care as outlined by the [employer]. History of Present Illness *Admission Date: 07/05/24 *Reason for visit:: Generalized weakness *History of present illness: A 63-year-old female with a history of hyperlipidemia, chronic obstructive pulmonary disease, stage IV lung cancer with brain metastases, type 2 diabetes, congestive heart failure, and hypothyroidism presents with weakness, a fall, and altered mental status. Family reports the patient has become progressively weaker over the past few days. Yesterday, they found her lying on the floor with her back and head against a chair. They note she has been acting normally but is extremely weak, intermittently confused, and has had minimal oral intake of food or fluids. The patient denies any current symptoms. History was obtained from both the patient and family, who are deemed reliable. On examination, the patient is hemodynamically stable, alert, and oriented to person and place, with a [place] Coma Scale of 15. She is moving all extremities spontaneously, with pupils equal and reactive to light. Vital signs include blood pressure 117/62 mmHg, heart rate 118 bpm, oxygen saturation 97% on 4 L nasal cannula, and respiratory rate of 30 breaths per minute. Physical exam reveals a chronically ill-appearing female in no acute distress. Lung exam shows isolated right upper lobe wheezes with otherwise normal breath sounds. Abdomen is soft, nontender, and nondistended. Cardiac exam is notable for tachycardia without murmurs, gallops, or rubs. No lower extremity edema is present. Diagnostic workup reveals leukocytosis of 22,900 with elevated neutrophils (88.4%) and monocytes (1.3 absolute). Venous blood gas shows mild alkalosis (pH 7.44), normal pCO2 (39 mmHg), normal bicarbonate (25.9 mmol/L), and elevated lactic acid (4.2 mmol/L). Electrolytes demonstrate hyponatremia (sodium 129 mmol/L, down from 135 mmol/L yesterday) and low magnesium (0.9 mg/dL). Renal function is impaired with creatinine 2.3 mg/dL, BUN 24 mg/dL, and estimated GFR 21 mL/min/1.73m?. Thyroid function tests show elevated TSH (5.65 mIU/L) with normal T4 (7.1 mcg/dL). Coagulation studies are normal (INR 1.11, APTT 29.7 seconds). . Electrocardiogram shows sinus tachycardia at 118 bpm with prolonged QTc (504 ms) but no ischemic changes. Chest X-ray and chest CT, independently interpreted, reveal right upper lobe consolidation consistent with pneumonia, with new small nodules in the right lung noted on CT, possibly neoplastic or inflammatory. Head CT shows no acute intracranial hemorrhage, with known brain metastases poorly visualized (previously seen on MRI 04/29/2024) and asymmetric low density in the left cerebellum, better evaluated with MRI. In the emergency department, the patient received a sepsis fluid bolus, intravenous vancomycin, levofloxacin, and metronidazole for suspected pneumonia and sepsis. Magnesium was repleted with 4 g intravenous magnesium sulfate and 800 mg oral magnesium oxide for hypomagnesemia. On reevaluation, vital signs have improved, including blood pressure and heart rate, with the patient mentating appropriately, following commands, and demonstrating good capillary refill. [facility] Disclaimer: The information contained in this section may have been updated after the patient was seen, as this information can be updated by other users. Medical History Metastasis to brain Lung cancer Depression Anxiety Urinary tract infection Asthma Hyperlipidemia Hypertension Sinus tachycardia Elevated left ventricular end-diastolic pressure (LVEDP) Abnormal echocardiogram Family history of heart disease Dizziness Dyspnea COPD (chronic obstructive pulmonary disease) Surgical History History of thyroid surgery History of surgery on upper extremity History of tubal ligation H/O dilation and curettage Family History Other Asthma COPD (chronic obstructive pulmonary disease) Cancer Diabetes Heart attack Hypertension Stroke Social History (Updated 07/05/24 @ 19:22 by Caroline Paulino RN) Smoking Status: Former smoker tobacco type: cigarettes packs per day: 1 second hand exposure: Yes alcohol intake: never current occupational status: unemployed Travel in the last 8 weeks: None household members: other housing: house caffeine: Yes Have you lived/traveled outside [place] in past 30 days?: No Contact w/someone who lives/traveled outside [place] past 30 days?: No Exposure to someone with infectious disease in past 14 days?: No Do you have a fever (greater than 100.4 F or 38 C)?: No Have you tested positive for COVID-19: No Exposed to someone with COVID-19 in past 14 days?: No Do you have a sore throat?: No Do you have a cough?: No Do you have any weakness?: No Are you experiencing any nausea/vomitting?: No Do you have any diarrhea?: No Are you experiencing any unusual bleeding?: No Do you have any muscle aches/pain?: No Do you have any abdominal pain?: No Are you experiencing loss of taste or smell?: No Other Medical History Have you received the Flu Vaccine for this season: No Have you received the Pneumonia Vaccine: No Review of Systems Review of Systems Review of systems (narrative): 13 point review of systems negative except as listed in [facility] Meds Home Medications and Allergies Home Medications ?Medication ?Instructions ?Recorded ?Confirmed ?Type atorvastatin 80 mg tablet 80 mg PO HS Cholesterol 06/10/18 07/04/24 History pantoprazole 40 mg tablet,delayed 40 mg PO HS GERD 06/10/18 07/05/24 History release buspirone 10 mg tablet 10 mg PO BID MOOD 04/06/20 07/05/24 History montelukast 10 mg tablet 10 mg PO PM Breathing problems 04/06/20 07/05/24 History albuterol sulfate 90 mcg/actuation 1 inh inhalation QID PRN shortness 08/12/20 07/04/24 Rx aerosol inhaler of breath or wheezing 90 days #8.5 grams fluticasone fur. 200 mcg-umeclid 1 inh inhalation DAILY 90 days #60 08/12/20 07/05/24 Rx 62.5 mcg-vilant 25 mcg ea inhalat.powder (Trelegy Ellipta) ipratropium 0.5 mg-albuterol 3 mg 3 ml inhalation QID PRN shortness 08/12/20 07/05/24 Rx (2.5 mg base)/3 mL nebulization of breath or wheezing #90 mL soln albuterol sulfate 90 mcg/actuation 4 inh inhalation Q4H PRN shortness 01/12/23 07/04/24 Rx aerosol inhaler of breath or wheezing #8.5 grams amlodipine 5 mg tablet 5 mg PO DAILY 05/11/23 07/04/24 History clonazepam 0.5 mg tablet 0.5 mg PO DAILY 09/06/23 07/05/24 History losartan 100 mg tablet 100 mg PO DAILY 09/06/23 07/04/24 History naloxone 4 mg/actuation nasal spray 4 mg intranasal DIRECTED 09/06/23 07/04/24 History bisoprolol fumarate 5 mg tablet 5 mg PO DAILY 11/28/23 07/05/24 History losartan 50 mg tablet 50 mg PO DAILY 11/28/23 07/04/24 History venlafaxine 75 mg capsule,extended 75 mg PO QAM 11/28/23 07/05/24 History release 24 hr levothyroxine 175 mcg tablet 175 mcg PO DAILY thyroid #90 tabs 11/29/23 07/05/24 Rx acyclovir 400 mg tablet 400 mg PO DAILY Infection #30 tabs 12/06/23 07/04/24 Rx fluconazole 150 mg tablet 150 mg PO Q3D 3 doses #3 tabs 04/11/24 07/04/24 Rx bisoprolol fumarate 10 mg tablet 10 mg PO DAILY 05/02/24 07/04/24 History potassium chloride 20 mEq 30 meq PO DAILY 05/02/24 07/04/24 History tablet,extended release(part/cryst) verapamil 180 mg 24 hr 180 mg PO DAILY 05/02/24 07/04/24 History capsule,extended release New Prescriptions to Start Prescriptions: Allergies Allergy/AdvReac Type Severity Reaction Status Date / Time cephalexin (From [employer] Allergy Mild Verified 07/04/24 09:51 Penicillins Allergy Mild Verified 07/04/24 09:51 Exam Data for Last 24 hours Vital signs and Labs for Last 24 Hours: Temp Pulse Resp BP Pulse Ox O2 Del Method O2 Flow Rate 98.1 F 108 H 18 125/59 L 96 Nasal Cannula 4 07/05/24 23:48 07/05/24 23:48 07/05/24 23:48 07/05/24 23:48 07/05/24 23:48 07/05/24 23:48 07/05/24 23:48 Laboratory Results - last 24 hr 07/05/24 15:35: WBC 22.9 H* D, RBC 3.21 L, Hgb 10.3 L, Hct 31.2 L, MCV 97.2, MCH 32.1 H, MCHC 33.0, RDW 12.8, Plt Count 182, MPV 8.7, Neut % (Auto) 88.4 H, Lymph % (Auto) 4.4 L, Williams % (Auto) 5.8, Eos % (Auto) 0.0 L, Baso % (Auto) 0.3, Neut # (Auto) 20.3 H, Lymph # (Auto) 1.0, Williams # (Auto) 1.3 H, Eos # (Auto) 0.0, Baso # (Auto) 0.1, Total Counted 100, Neutrophils % (Manual) 76, Band Neutrophils % 3.0, Lymphocytes % (Manual) 7 L, Monocytes % (Manual) 6, Metamyelocytes % 5.0 H, Myelocytes % 3 H, Platelet Estimate Normal, Giant Platelets 1+, Polychromasia 1+, Poikilocytosis 1+, Basophilic Stippling 1+, Target Cells 1+, Stomatocytes 1+, PT 12.3, INR 1.11 H, APTT 29.7, Sodium 129 L, Potassium 4.0, Chloride 89 L, Carbon Dioxide 29, Anion Gap 15.0, BUN 24 H D, Creatinine 2.30 H D, Estimated Creat Clear 35, Estimated GFR 21 L, Est GFR ( Amer) 26 L D, Glucose 117 H , Calcium 8.5, Magnesium 0.9 L, Total Bilirubin 1.3, AST 37 H D, ALT 31 D, Alkaline Phosphatase 64, Troponin I < 0.01, Total Protein 7.8, Albumin 3.9, Glob ulin 3.9 H, Albumin/Globulin Ratio 1.0 L, TSH 5.65 H, Thyroxine (T4) 7.1, HCV Ab NEEL w/Rflx PCR Qn Negative, HIV Ag/Ab Combo Qual Negative 07/05/24 15:39: VBG pH 7.44 H, VBG pCO2 39.0, VBG pO2 84.2 H, VBG HCO3 25.9, VBG Total CO2 27.1 H, VBG O2 Saturation 96.3 H, VBG Base Excess 1.7, VBG Lactic Acid 4.2 H, Urine Color Yellow, Urine Appearance Clear, Urine pH 5.0, Ur Specific [place] 1.025, Urine Protein 2+ A, Urine Glucose (UA) Negative, Urine Ketones 1+, Urine Blood Negative, Urine Nitrate Negative, Urine Bilirubin 1+ A, Urine Urobilinogen 1.0, Ur Leukocyte Esterase Negative, Urine RBC None, Urine WBC 5- 10, Ur Squamous Epith Cells 3-5, Calcium Oxalate Crystal 1+, Urine Bacteria 4+, Fine Granular Casts 3-5, Coarse Granular Casts 3-5 07/05/24 18:29: Troponin I < 0.01 07/05/24 21:32: Lactate 3.0 H, Troponin I < 0.01 07/05/24 23:50: Lactate 2.5 H I & O for Last 24 hours: Intake & Output 07/03/24 07/04/24 07/05/24 07/06/24 23:59 23:59 23:59 23:59 Output Total 0 / 0 Balance 0 / 0 Weight 91.626 kg Constitutional Constitutional: obese and chronically ill appearing *Routine HEENT Exam Head: Present normocephalic Eye: Present EOMI and PERRL ENT: Present mucous membranes moist *Routine Neck Exam Neck: Present supple; Absent lymphadenopathy *Routine Respiratory Exam Respiratory: Present decreased breath sounds (Right upper lobe) *Routine Cardiovascular Exam Cardiovascular: Present tachycardia *Routine Abdominal Exam Abdominal: Present soft, normoactive bowel sounds and obese; Absent tenderness *Routine Rectal Exam Rectal:: deferred *Routine Genitalia Exam Genitalia:: deferred *Routine Extremities Exam Extremities: Absent cyanosis, clubbing or edema *Routine Skin Exam Skin: Present warm; Absent rash *Routine Neurological Exam Neurological: Present alert and oriented X3 Assessment and Plan *Assessment and plan (1) Hypomagnesemia: Status: Acute Category: Medical Code(s): E83.42 - Hypomagnesemia (2) Acute hyponatremia: Status: Acute Category: Medical Code(s): E87.1 - Hypo-osmolality and hyponatremia (3) Right upper lobe pneumonia: Status: Acute Category: Medical Code(s): J18.9 - Pneumonia, unspecified organism (4) Sepsis: Status: Acute Category: Medical Code(s): A41.9 - Sepsis, unspecified organism (5) Lung mass: Status: Acute Category: Medical Code(s): R91.8 - Other nonspecific abnormal finding of lung field (6) Acute exacerbation of chronic obstructive pulmonary disease: Status: Acute Category: Medical Code(s): J44.1 - Chronic obstructive pulmonary disease with (acute) exacerbation (7) Hypothyroid: Status: Chronic Qualifiers: Hypothyroidism type: acquired Qualified Code(s): E03.9 - Hypothyroidism, unspecified Category: Medical Code(s): E03.9 - Hypothyroidism, unspecified Plan * Right Upper Lobe Pneumonia: Right upper lobe consolidation on chest X-ray and CT, with leukocytosis (WBC 22,900, 88.4% neutrophils), tachycardia (heart rate 118 bpm), and lactic acidosis (4.2 mmol/L), indicative of bacterial pneumonia in a patient with stage IV lung cancer and COPD. * Continue intravenous vancomycin, levofloxacin, and metronidazole for broad- spectrum coverage of community-acquired and healthcare-associated pneumonia, pending culture results. * Maintain oxygen at 4 L nasal cannula to keep saturation above 92%, titrating as needed. * Monitor respiratory rate and oxygen requirements every 4 hours. * Obtain sputum culture to guide antibiotic therapy. * Repeat chest X-ray in 48 hours or sooner if clinical deterioration. * Consult pulmonology for management given underlying lung cancer and COPD. * Sepsis (Suspected, Secondary to Pneumonia): Elevated lactate (4.2 mmol/L), leukocytosis, and tachycardia meeting sepsis criteria, with improvement post- fluid bolus. * Administer additional 30 mL/kg normal saline bolus if lactate remains elevated or hypotension recurs. * Monitor lactate every 4?6 hours until normalized (<2 mmol/L). * Assess tissue perfusion (capillary refill, mentation) every 3?4 hours. * Continue broad-spectrum antibiotics as above. * Check blood cultures for growth. * Altered Mental Status and Weakness: Intermittent confusion and progressive weakness over days, with recent fall, in a patient with brain metastases; head CT shows no acute hemorrhage but notes asymmetric low density in the left cerebellum and poorly visualized metastases, suggesting possible contribution from malignancy or metabolic issues. * Monitor neurological status every 8 hours, assessing orientation and [place] Coma Scale. * Order brain MRI with and without contrast, as recommended by radiology, to evaluate cerebellar abnormality and metastases. * Consider dexamethasone 4 mg IV daily for possible peritumoral edema, pending clinical findings * Implement fall precautions (bed alarms, low bed, nonslip socks). * Stage IV Lung Cancer with Brain Metastases: Known metastatic disease with new right lung nodules on chest CT (possibly neoplastic or inflammatory) and brain metastases poorly seen on CT, with cerebellar low density requiring MRI follow-up. * Consult oncology for inpatient evaluation, including management of new nodules and brain metastases. * Follow up chest CT with contrast in 3 months, as recommended, to reassess nodules. * Discuss goals of care with patient and family, given high-risk prognosis. * Coordinate with pulmonology for symptom management. * Hyponatremia (Sodium 129 mmol/L): Acute drop from 135 mmol/L yesterday, likely due to syndrome of inappropriate antidiuretic hormone secretion (SIADH) from lung cancer, pneumonia, or CHF, with poor oral intake. * Restrict free water intake to 1 L/day. * Administer normal saline at maintenance rate, avoiding rapid correction. * Recheck sodium every 6?8 hours, targeting correction rate <8 mmol/L per 24 hours. * Consult endocrinology if no improvement or SIADH confirmed. * Hypomagnesemia (Magnesium 0.9 mg/dL): Low magnesium, potentially contributing to weakness and prolonged QTc (504 ms). * Continue repletion with 2 g intravenous magnesium sulfate every 8 hours until level >1.8 mg/dL. * Administer 400 mg oral magnesium oxide twice daily for maintenance. * Recheck magnesium level in 12 hours. * Monitor electrocardiogram for QTc changes; consider switching levofloxacin to alternative if QTc worsens. * Acute Kidney Injury (Creatinine 2.3 mg/dL, GFR 21 mL/min/1.73m?): Elevated creatinine and BUN (24 mg/dL), likely prerenal from dehydration or sepsis, in a patient with diabetes and CHF. * Continue normal saline resuscitation as needed for sepsis and hyponatremia. * Monitor urine output every 4 hours, targeting >0.5 mL/kg/hour. * Recheck creatinine and BUN in 12?24 hours. * Avoid nephrotoxic agents (contrast dye, nonsteroidal anti-inflammatory drugs). * Mild Anemia (Hemoglobin 10.3 g/dL, Hematocrit 31.2%): Chronic anemia, likely anemia of chronic disease from lung cancer, with no active bleeding. * Observe without transfusion, given hemodynamic stability. * Recheck complete blood count in 24 hours to ensure stability. * Plan outpatient workup with iron studies and erythropoietin levels if persistent. * Hypothyroidism (TSH 5.65 mIU/L, T4 7.1 mcg/dL): Mildly elevated TSH with normal T4, suggesting subclinical hypothyroidism or inadequate levothyroxine dosing. * Review home levothyroxine dose and confirm compliance. * Recheck TSH and free T4 in 24?48 hours if clinically indicated. * Congestive Heart Failure: No signs of decompensation (no edema, normal breath sounds aside from pneumonia), but at risk given tachycardia and comorbidities. * Monitor for fluid overload (daily weights, intake/output). * Continue home diuretic regimen unless renal function worsens. * Recheck B-type natriuretic peptide if dyspnea or edema develops. * Type 2 Diabetes: Glucose mildly elevated (117 mg/dL), with minimal oral intake. * Monitor fingerstick glucose ACHS * Administer sliding-scale insulin * Reorder home regimen * Resume home diabetes regimen once oral intake improves. * Chronic Obstructive Pulmonary Disease: Stable on 4 L oxygen, with right upper lobe wheezes likely due to pneumonia. * Administer albuterol-ipratropium nebulizer every 4 hours as needed for wheezing. * Monitor respiratory status with pneumonia management. * Consult pulmonology as above. Disposition: * Admit to hospital medicine service for management of pneumonia, sepsis, and altered mental status. * Maintain continuous cardiac monitoring and pulse oximetry. * Monitor vital signs per unit standard * Offer acetaminophen as needed for discomfort, avoiding sedatives. * Consult dietitian for nutritional support to improve oral intake. * Educate patient and family on diagnoses, inpatient plan, and prognosis.
[2024-07-06] MEDS: IPRATROPIUM/ALBUTEROL 3 ML NEB IH ×2 (03:15→07:16)
[2024-07-06] MEDS: LACTATED RINGERS 1000ML 1,000 ML 75 ML IV (03:53)
[2024-07-06 06:32] LABS: POC Glucose,Bedside 117 (70-110)
--- NOTE | 2024-07-06 06:40 | INFXCTL.NOTE ---
patient desats with ambulation or activity.
--- NOTE | 2024-07-06 06:54 | PC.NURSE ---
patient has fluctuated between 3.5-5L NC
[2024-07-06 07:08] LABS: Basophils % 0.2 % (0.1-2.0); Eosinophils % 0.1 % (0.1-12.0); Hematocrit 28.3 % (37.0-47.0); Hemoglobin 9.4 g/dL (12.2-16.2); Lymphocytes # 1.2 K/mm3 (0.7-4.5); Mean Corpuscular HGB Conc 33.2 g/dL (31.8-35.4); Mean Corpuscular Volume 96.3 fl (81-99); Mean Platelet Volume 8.7 fl (7.4-10.4); Monocytes # 0.8 K/mm3 (0.1-1.0); Monocytes % 4.3 % (1.7-9.3); Neutrophils # 16.6 K/mm3 (1.8-7.8); Neutrophils % 86.8 % (37.0-80.0); Nucleated Red Blood Cells # 0 10^3/uL; Nucleated Red Blood Cells % 0 %; Platelet Count 164 K/mm3 (142-424); Red Blood Count 2.94 M/mm3 (4.20-5.40); Red Cell Distribution Width 12.6 % (11.5-17.5); Red Cell Distribution Width-SD 44.3 fL; White Blood Count 19.1 K/mm3 (4.8-10.8)
[2024-07-06 07:16] LABS: MANUAL DIFFERENTIAL MANUAL DIFFERENTIAL (MANUAL DIFF)
[2024-07-06 08:22] LABS: Chloride 88 mmol/L (98-107); Potassium 3.6 mmoL/L (3.5-5.1); Sodium 128 mmol/L (136-145)
[2024-07-06 08:25] LABS: Blood Urea Nitrogen 23 mg/dl (7-17); Creatinine Clearance Estimated 75 mL/min (50-200); Estimated Glomerular Filt Rate 50 ml/min (>60); GFR (African American) 61 ML/MIN (>60); Magnesium 2.1 mg/dl (1.6-2.3)
[2024-07-06 08:26] LABS: Anion Gap 11.6 mEq/L (5-15); Calcium 8.3 mg/dl (8.4-10.2); Carbon Dioxide 32 mmol/L (22.0-30.0); Glucose 105 mg/dl (74-100)
--- NOTE | 2024-07-06 08:42 | EXP.PHA.CONS ---
Pharmacy Consult Date: 07/06/24 Time: 08:42 Referring provider: DR. CHAMBERLAIN Reason for Consult:: VANCOMYCIN DOSING Allergies Allergy/AdvReac Type Severity Reaction Status Date / Time cephalexin (From KEFLEX) Allergy Mild Verified 07/04/24 09:51 Penicillins Allergy Mild Verified 07/04/24 09:51 Home Medications ?Medication ?Instructions ?Recorded ?Confirmed ?Type atorvastatin 80 mg tablet 80 mg PO HS Cholesterol 06/10/18 07/04/24 History pantoprazole 40 mg tablet,delayed 40 mg PO HS GERD 06/10/18 07/05/24 History release buspirone 10 mg tablet 10 mg PO BID MOOD 04/06/20 07/05/24 History montelukast 10 mg tablet 10 mg PO PM Breathing problems 04/06/20 07/05/24 History albuterol sulfate 90 mcg/actuation 1 inh inhalation QID PRN shortness 08/12/20 07/04/24 Rx aerosol inhaler of breath or wheezing 90 days #8.5 grams fluticasone fur. 200 mcg-umeclid 1 inh inhalation DAILY 90 days #60 08/12/20 07/05/24 Rx 62.5 mcg-vilant 25 mcg ea inhalat.powder (Trelegy Ellipta) ipratropium 0.5 mg-albuterol 3 mg 3 ml inhalation QID PRN shortness 08/12/20 07/05/24 Rx (2.5 mg base)/3 mL nebulization of breath or wheezing #90 mL soln albuterol sulfate 90 mcg/actuation 4 inh inhalation Q4H PRN shortness 01/12/23 07/04/24 Rx aerosol inhaler of breath or wheezing #8.5 grams amlodipine 5 mg tablet 5 mg PO DAILY 05/11/23 07/04/24 History clonazepam 0.5 mg tablet 0.5 mg PO DAILY 09/06/23 07/05/24 History losartan 100 mg tablet 100 mg PO DAILY 09/06/23 07/04/24 History naloxone 4 mg/actuation nasal spray 4 mg intranasal DIRECTED 09/06/23 07/04/24 History bisoprolol fumarate 5 mg tablet 5 mg PO DAILY 11/28/23 07/05/24 History losartan 50 mg tablet 50 mg PO DAILY 11/28/23 07/04/24 History venlafaxine 75 mg capsule,extended 75 mg PO QAM 11/28/23 07/05/24 History release 24 hr levothyroxine 175 mcg tablet 175 mcg PO DAILY thyroid #90 tabs 11/29/23 07/05/24 Rx acyclovir 400 mg tablet 400 mg PO DAILY Infection #30 tabs 12/06/23 07/04/24 Rx fluconazole 150 mg tablet 150 mg PO Q3D 3 doses #3 tabs 04/11/24 07/04/24 Rx bisoprolol fumarate 10 mg tablet 10 mg PO DAILY 05/02/24 07/04/24 History potassium chloride 20 mEq 30 meq PO DAILY 05/02/24 07/04/24 History tablet,extended release(part/cryst) verapamil 180 mg 24 hr 180 mg PO DAILY 05/02/24 07/04/24 History capsule,extended release New Prescriptions to Start Prescriptions: Height: 1.65 m Weight: 92.533 kg Laboratory Results:: Laboratory Results - last 24 hr 07/05/24 15:35: WBC 22.9 H* D, RBC 3.21 L, Hgb 10.3 L, Hct 31.2 L, MCV 97.2, MCH 32.1 H, MCHC 33.0, RDW 12.8, Plt Count 182, MPV 8.7, Neut % (Auto) 88.4 H, Lymph % (Auto) 4.4 L, Brewster % (Auto) 5.8, Eos % (Auto) 0.0 L, Baso % (Auto) 0.3, Neut # (Auto) 20.3 H, Lymph # (Auto) 1.0, Brewster # (Auto) 1.3 H, Eos # (Auto) 0.0, Baso # (Auto) 0.1, Total Counted 100, Neutrophils % (Manual) 76, Band Neutrophils % 3.0, Lymphocytes % (Manual) 7 L, Monocytes % (Manual) 6, Metamyelocytes % 5.0 H, Myelocytes % 3 H, Platelet Estimate Normal, Giant Platelets 1+, Polychromasia 1+, Poikilocytosis 1+, Basophilic Stippling 1+, Target Cells 1+, Stomatocytes 1+, PT 12.3, INR 1.11 H, APTT 29.7, Sodium 129 L, Potassium 4.0, Chloride 89 L, Carbon Dioxide 29, Anion Gap 15.0, BUN 24 H D, Creatinine 2.30 H D, Estimated Creat Clear 35, Estimated GFR 21 L, Est GFR ( Amer) 26 L D, Glucose 117 H, Calcium 8.5, Magnesium 0.9 L, Total Bilirubin 1.3, AST 37 H D, ALT 31 D, Alkaline Phosphatase 64, Troponin I < 0.01, Total Protein 7.8, Albumin 3.9, Globulin 3.9 H, Albumin/Globulin Ratio 1.0 L, TSH 5.65 H, Thyroxine (T4) 7.1, HCV Ab NEEL w/Rflx PCR Qn Negative, HIV Ag/Ab Combo Qual Negative 07/05/24 15:39: VBG pH 7.44 H, VBG pCO2 39.0, VBG pO2 84.2 H, VBG HCO3 25.9, VBG Total CO2 27.1 H, VBG O2 Saturation 96.3 H, VBG Base Excess 1.7, VBG Lactic Acid 4.2 H, Urine Color Yellow, Urine Appearance Clear, Urine pH 5.0, Ur Specific [place] 1.025, Urine Protein 2+ A, Urine Glucose (UA) Negative, Urine Ketones 1+, Urine Blood Negative, Urine Nitrate Negative, Urine Bilirubin 1+ A, Urine Urobilinogen 1.0, Ur Leukocyte Esterase Negative, Urine RBC None, Urine WBC 5-10, Ur Squamous Epith Cells 3-5, Calcium Oxalate Crystal 1+, Urine Bacteria 4+, Fine Granular Casts 3-5, Coarse Granular Casts 3-5 07/05/24 18:29: Troponin I < 0.01 07/05/24 21:32: Lactate 3.0 H, Troponin I < 0.01 07/05/24 23:50: Lactate 2.5 H 07/06/24 06:15: POC Glucose 117 H 07/06/24 06:40: WBC 19.1 H, RBC 2.94 L, Hgb 9.4 L, Hct 28.3 L, MCV 96.3, MCH 32.0 H, MCHC 33.2, RDW 12.6, Plt Count 164, MPV 8.7, Neut % (Auto) 86.8 H, Lymph % (Auto) 6.0 L, Brewster % (Auto) 4.3, Eos % (Auto) 0.1, Baso % (Auto) 0.2, Neut # (Auto) 16.6 H, Lymph # (Auto) 1.2, Brewster # (Auto) 0.8, Eos # (Auto) 0.0, Baso # (Auto) 0.0, Sodium 128 L, Potassium 3.6, Chloride 88 L, Carbon Dioxide 32 H, Anion Gap 11.6, BUN 23 H, Creatinine 1.10 H D, Estimated Creat Clear 75, Estimated GFR 50 L, Est GFR ( Amer) 61 D, Glucose 105 H, Calcium 8.3 L, Magnesium 2.1 D Medical History: Medical History (Updated 07/05/24 @ 19:22 by Caroline Paulino RN) Metastasis to brain Lung cancer Depression Anxiety Urinary tract infection Asthma Hyperlipidemia Hypertension Sinus tachycardia Elevated left ventricular end-diastolic pressure (LVEDP) Abnormal echocardiogram Family history of heart disease Dizziness Dyspnea COPD (chronic obstructive pulmonary disease) Assessment and Plan Assessment and plan all Dx Assessment and Plan for all problems:: Pharmacokinetic dosing service Objective: Patient: Floor: Age: 63 yo Serum creatinine: 2.30 mg/dL Height: 65.0 Inches Weight (kg): 92.5 Assessment: IBW (kg): 57.00 Dosing wt(kg): 92.5 Estimated Creatinine clearance (ml/min): 22.2 CRCL method: Cockcroft and Gault using ibw(default). Drug selected: Vancomycin Loading dose (mg): Vd (liters): 74.0 (factor used: 0.8 L/kg) Balwinder (hr-1): 0.023 Half life (hrs): 30.14 CLvanco=?? 1.702 L/hr Recommended dose: 1250 mg Interval: 36 hrs Infusion time (hrs): 2.0 Predicted peak (mcg/mL): 29.3 Predicted trough (mcg/mL): 13.40 Total body weight is being used for vancomycin dosing. Recommendations: Give Vancomycin 1250 mg q 36 hrs with an expected Cpeak of 29.3 mcg/ml and an expected Ctrough of 13.40 mcg/ml AUC 0-24 /LARRY Data: LARRY 0.5 mcg/mL:?? AUC/LARRY:? 979.2 LARRY 1.0 mcg/mL:?? AUC/LARRY:? 489.6 --------- LARRY 1.5 mcg/mL:?? AUC/LARRY:? 326.4 LARRY 2.0 mcg/mL:?? AUC/LARRY:? 244.8 Thank you for the consult, will continue to follow. -VICENTE HAMEED, BISID
[2024-07-06] MEDS: LEVOTHYROXINE 175MCG (0.175MG) TAB 175 MCG PO (08:54)
[2024-07-06] MEDS: AMLODIPINE 5MG TABLET 5 MG PO (08:54)
[2024-07-06] MEDS: FLUTICASONE/UMECLIDIN/VILANTER 200/62.5/25MCG INHALER 1 PUFF IH (08:54)
[2024-07-06] MEDS: MEROPENEM 1 GM in 0.9 % SODIUM CHLORIDE 100 ML IV ×2 (08:54→20:20)
[2024-07-06 09:52] LABS: Procalcitonin 8.39 ng/mL (0.0-2.0)
--- NOTE | 2024-07-06 09:56 | HMH.PHAINT1 ---
Pharmacy Intervention Comments: MEDICATION RECONCILIATION COMPLETED ON PATIENT USING EXTERNAL FILL HISTORY FROM PHARMACY. -VICENTE HAMEED, BISID
[2024-07-06 10:00] LABS: Lymphocytes % 14 % (10-50); Monocytes % 6 % (2-9); Neutrophils % 51 % (42-76); RBC Morphology Normal; Total Cells Counted 100
[2024-07-06 10:01] LABS: Platelet Estimate Normal
[2024-07-06 11:39] LABS: POC Glucose,Bedside 120 (70-110)
[2024-07-06] MEDS: VENLAFAXINE XR 75MG CAPSULE 75 MG PO (12:32)
[2024-07-06] MEDS: BUSPIRONE HCL 10 MG TABLET PO ×2 (12:32→20:20)
[2024-07-06] MEDS: VERAPAMIL SR 180MG TABLET 180 MG PO (12:32)
[2024-07-06 12:39] LABS: Hemoglobin A1C 4.6 % (4.0-6.0)
--- NOTE | 2024-07-06 13:21 | HMH.PTEV ---
Physical Therapy Evaluation Rehab PT IP Evaluation Start: 07/06/24 12:03 Freq: ONCE Status: Active Protocol: Document 07/06/24 13:06 HARRIETTRUDY (Rec: 07/06/24 13:21 JOSIAHCLEVELANDTRUDY [id number]) Subjective/History History History Per H&P, A 63-year-old female with a history of hyperlipidemia, chronic obstructive pulmonary disease, stage IV lung cancer with brain metastases, type 2 diabetes, congestive heart failure, and hypothyroidism presents with weakness, a fall , and altered mental status. Family reports the patient has become progressively weaker over the past few days. Yesterday, they found her lying on the floor with her back and head against a chair. They note she has been acting normally but is extremely weak, intermittently confused, and has had minimal oral intake of food or fluids. The patient denies any current symptoms. History was obtained from both the patient and family, who are deemed reliable. Subjective Subjective Pt is alert and oriented to PPT. Pt reports that she lives in an apartment with her sister. She reports that her sister does all of the cooking /cleaning. Pt reports that she has a walker, cane and wheelchair. She reports that she occasionally uses the wheelchair but not the other devices. The pt reports that she has had a few falls in the past few months but her recent fall was the worst. Pt reports that she thinks she will start using the walker. New diagnosis of cancer in past 12 No months? [facility] [address] [address] How much help from another person do you currently need... Turning from your back to your side None while in a flat bed without using bedrails? Moving from lying on back to sitting on None the side of a flat bed without using bedrails? Moving to and from a bed to a chair ( A little including a wheelchair)? Standing up from a chair using your arms A little ? (e.g., wheelchair, bedside chair) Walking in hospital room? A little Climbing 3-5 steps with a railing? A little Mobility Score 20 Mobility Level [facility] Mobility Calculator Mobility 6 Walk 10 steps or more Rehab PT IP Eval Objective Appearance Patient Behavior Appropriate,Patient Baseline Patient Orientation Person,Place,Time Difficulty following instructions none Speech Pattern Clear,Patient Baseline Ambulation Patient Able to Ambulate Yes Ambulation Observation IP General Gait Pattern Observation Shuffling Step Ambulation Distance (feet) 8 Ambulation Assistive Device None Ambulation Ability Contact Guard/Hand Hold Balance Ability to Arise Able, uses arms to help Sitting Balance Steady, safe Standing Balance Steady, wide stance Dynamic Sitting Balance Ability Normal Dynamic Standing Balance Ability Good Transfers Bed Transfer Ability Supervision/Stand by Chair Transfer Ability Contact Guard/Hand Hold Sit to Stand Bed Transfer Ability Contact Guard/Hand Hold Sit to Stand Chair Transfer Ability Contact Guard/Hand Hold Rehab PT IP prob,goals,plan Problems Date of Evaluation: 07/06/24 PT IP Problems Bed Mobility,Transfers,Gait, Balance,Self care,Safety Rehab Potential Rehab Potential Good Equipment Needs Assistive Devices None / NA Plan PT Intervention Plan Bed Mobility,Transfers,Gait, Balance,Self care,Safety, Therapeutic Exercise PT Plan Frequency BID Duration LOS Discharge Goals Bed Transfer Ability Independent Sit to Stand Chair Transfer Ability Independent Ambulation Assistive Device None Ambulation Distance (feet) 100 Discharge Plan PT Discharge Plan PT is recommending discharge to home with home health, upon discharge from the hospital. Pt would also benefit from skilled PT during her acute stay to help pt return to [facility] and to prevent further injury /falls. Eval Complexity Eval Charge Codes 81704 - High Complexity PHYSICIAN CERTIFICATION: I certify the specified therapy services for Shantal Stanford are required, authorized, and reviewed every 30 days.
--- OUTSIDE RECORDS SUMMARY | 2024-07-06 14:29 | XMS_ITS | Data Portability ---
Author Organization [place] - [facility] Address [address] [place] [address] Care Team Providers Care Pipeline Gang Supervisor Name Role Phone LALIT PAINTER Referring Provider RENETTA MAZARIEGOS Radiation Oncologist Assessment Encounter Date [...] be scheduled on or around 05/02/20242024 [address] [place] [id number] [facility] [address], [place], [address], 10:17:19 Medication Orders Magic Mouthwash w/ Nystatin 2023 024 [facility], [address] [facility] [place], [id number], 15:28:47 Patient TargetsNo targets recorded. Patient Instructions Encounter Date Encounter Id Patient Instructions Last Modified By Organization Details Last Modified Time 10/02/2023 [id number] Patient tolerating treatments well apart she developed [...] contr ast No observ ation [facility] ed. [facility] [address] [place] [address], [place], [id number], 01/10/2024 14:01:21 04/16/19 25 03/15/2024 MRI, brain , w/wo contr ast No observ ation record ed. [email or web address] Not Available 03/28 09:44:05 05/24/19 25 04/29/2024 MRI, brain , w/wo contr ast No observ ation [facility] ed. [facility] [employer] [address], [place], [id number], 05/27/2024 07:48:22 Result Notes None recorded. Problems Name Problem SNOMED Code Status Onset Date Resolution Date Notes Provider Name and Address Organization Details Recorded Time Small cell carcinoma of lung 790526094 Active 024 CASEY Acevedo - KATH[place] - [place] & [place] 4 09:44:19 Metastatic malignant neoplasm to brain 07703632 Active 024 CASEY Acevedo [facility] & [place] 4 09:44:41 Acute mucositis 913729834 Active 024 CASEY Acevedo [facility] & [place] 4 13:51:43 Problem Notes None recorded. Procedures Surgical History Date Name Laterality Status Provider Name and Address Organization Details Recorded Time 08/31/19 24 endoscopic endobronchial ultrasonography guided transbronchial needle aspiration of mediastinal lymph node completed Fatoumata VÁZQUEZ [facility] & [place] 09/08/2023 10:42:33 08/21/19 24 craniotomy completed Fatoumata VÁZQUEZ [facility] & [place] 09/08/2023 10:42:09 Carpal tunnel surgery completed Fatoumata VÁZQUEZ [facility] & [place] 09/08/2023 10:41:49 Imaging Results Imaging Date Name Status LastModified by Organiz ation Details LastModified Time 12/14/2023 MRI, brain + brain stem, w/ contrast [facility] [employer] [address], [place], [address], 01/10/2024 14:01:21 03/15/2024 [facility], brain, w/wo [facility] not available 04/16/2024 09:44:05 04/29/2024 MRI, brain, w/wo contrast active [facility] [employer] [address], [place], [address], 05/27/2024 07:48:22 Procedure Notes None recorded. Medical Equipment None Reported. Allergies Allergen ID Allergen Name Allergen Category Reaction Reaction Severity Criticality Documentation Date Start Date Code Code System Note Provider Name and Address Organization Details Recorded Time 122623 Product containin g penicilli n (product) medicatio n Not available Not available Not available 09/08/2023 43997 8001 SNOMED CASEY Acevedo [facility] & [place] 4 13:53:29 296371 Keflex medicatio n Not available Not available Not available 09/08/202353354 7 RxNorm Fatoumata weller MD - [facility] - [place] & [place] 4 10:54:06 Medications Name Sig Start Date [...] /min 119 mm[Hg] 66 mm[Hg] Fatoumata VÁZQUEZ [facility] 4 13:45:57 Date Recorded Body weight Body temperature Oxygen saturation Oxygen saturation in Arterial blood by Pulse oximetry Heart rate Respiratory rate Systolic blood pressure Diastolic blood pressure Provider Name and Address Organization Details Last Updated DateTime 4 616025. 68 g 97.5 [degF] 98 % 98 % 96 /min 19 /min 125 mm[Hg] 67 mm[Hg] Fatoumata Ron [facility] 4 13:28:04 Date Recorded Body temperature Oxygen saturation Oxygen saturation in Arterial blood by Pulse oximetry Inhaled oxygen flow rate Heart rate Respiratory rate Systolic blood pressure Diastolic blood pressure Provider Name and Address Organization Details Last Updated DateTime 4 97 [degF] 99 % 99 % 3 L/min 82 /min 20 /min 125 mm[Hg] 68 mm[Hg] Fatoumata Lozada [facility] & [place] 4 13:52:57 Date Recorded Body weight Body temperature Oxygen saturation Oxygen saturation in Arterial blood by Pulse oximetry Heart rate Respiratory rate Systolic blood pressure Diastolic blood pressure Provider Name and Address Organization Details Last Updated DateTime 5 24615.2 2 g 97.3 [degF] 95 % 95 % 87 /min 19 /min 154 mm[Hg] 72 mm[Hg] Fatoumatabeth Lozada [facility] & [place] 5 12:14:43 Social History Question Answer Notes LastModified by Organizat ion Details LastModified Time Tobacco Smoking Status Former Smoker Fatoumatabeth Lozada [facility] & [place] 09/08/2023 10:41:23 Do You Or Have You [...] SNOMED-CT Code Diagnosis ICD10 Code Diagnosis Note [id number] [facility] [address] 8 09/08/2023 09:37:05 09/08/2023 10:46:00 Small cell carcinoma of lung 535920616 C34.90 Metastatic malignant neoplasm to brain 26989285 C79.31 [id number] Renetta Mazariegos [place] [address] 8 09/13/2023 13:19:24 09/13/2023 15:32:20 Metastatic malignant neoplasm to brain 94764447 C79.31 Small cell carcinoma of lung 493117384 C34.90 [id number] [facility] [place] [address] 8 09/19/2023 13:36:21 09/19/2023 14:37:37 Small cell carcinoma of lung 392784985 C34.90 Metastatic malignant neoplasm to brain 21393633 C79.31 [id number] Renetta Mazariegos [place] [address] 8 09/20/2023 13:28:45 09/20/2023 14:17:44 Metastatic malignant neoplasm to brain 28500660 C79.31 Small cell carcinoma of lung 123514883 C34.90 [id number] Renetta Mazariegos MD [place] [address] 8 09/21/2023 13:39:23 09/21/2023 14:06:20 Small cell carcinoma of lung 373398632 C34.90 Metastatic malignant neoplasm to brain 73236943 C79.31 [id number] Renetta Mazariegos MD [place] [address] 8 09/24/2023 10:05:25 09/24/2023 10:59:16 Metastatic malignant neoplasm to brain 72363645 C79.31 Small cell carcinoma of lung 261340043 C34.90 [id number] Renetta Mazariegos MD [place] [address] 8 09/25/2023 08:19:34 09/25/2023 09:39:32 Small cell carcinoma of lung 013078646 C34.90 Metastatic malignant neoplasm to brain 05866440 C79.31 [id number] Renetta Mazariegos MD [place] [address] 8 09/22/2023 10:50:20 09/22/2023 11:24:40 Metastatic malignant neoplasm to brain 18254884 C79.31 [id number] Renetta Mazariegos MD [place] [address] 8 09/26/2023 08:24:03 09/26/2023 09:27:30 Metastatic malignant neoplasm to brain 55613610 C79.31 Small cell carcinoma of lung 416352899 C34.90 [id number] Renetta Mazariegos MD [place] [address] 8 09/27/2023 08:12:42 09/27/2023 11:08:08 Small cell carcinoma of lung 726440027 C34.90 Metastatic malignant neoplasm to brain 50174070 C79.31 [id number] Renetta Mazariegos MD [place] [address] 8 10/02/2023 13:36:53 10/02/2023 14:14:11 Small cell carcinoma of lung 980821452 C34.90 Metastatic malignant neoplasm to brain 70574858 C79.31 Acute mucositis 08123512 8 K12.30 [id number] Renetta Mazariegos MD [place] [address] 8 10/03/2023 13:36:12 10/03/2023 15:41:36 Small cell carcinoma of lung 651366389 C34.90 Metastatic malignant neoplasm to brain 74916246 C79.31 [id number] Renetta Mazariegos MD [place] [address] 8 11/06/2023 13:00:38 11/06/2023 14:00:15 Small cell carcinoma of lung 634077218 C34.90 Metastatic malignant neoplasm to brain 73741938 C79.31 [id number] Renetta Mazariegos MD [place] [address] 8 01/10/2024 13:38:12 01/10/2024 15:03:23 Metastatic malignant neoplasm to brain 88748482 C79.31 Small cell carcinoma of lung 867898859 C34.90 [id number] Renetta Mazariegos MD [place] [address] 8 04/04/2024 11:58:19 04/04/2024 12:41:56 Metastatic malignant neoplasm to brain 08733952 C79.31 Small cell carcinoma of lung 398872324 C34.90 Health Concerns Section Related Observation LastModified by Organization Detai ls LastModified Time None Recorded Concern Status LastModified by Organization Details LastModified Time None Recorded Advance Directives Directive None Recorded Payers Encounter Date Sequence Insurance Name Policy Number Policy Richards Covered Member ID Richards Member ID Guarantor Name 10/02/2023 2 [place] [id number] Shantal Stanford [id number] Shantal Stanford 10/02/2023 1 [place] Shantal Stanford [id number] Shantal Stanford 10/03/2023 2 [place] [id number] Shantal Welch Bach [id number] Shantal Stanford 10/03/2023 1 [place] Shantal L Bach [id number] Shantal Stanford 11/06/2023 2 [place] [id number] Shantal L Bach [id number] Shantal Stanford 11/06/2023 1 [place] Shantal L Bach [id number] Shantal Stanford 01/10/2024 2 [place] [id number] Shantal L Bach [id number] Shantal Stanford 01/10/2024 1 [place] Shantal L Bach [id number] Shantal Stanford 04/04/2024 2 [place] [id number] Shantal L Bach [id number] Shantal Stanford 04/04/2024 1 [place] Shantal Welch Bach [id number] Shantal Stanford Notes Date Note Type [...] 24 hours a day. Renetta Mazariegos MD [address] [place] [address],[address], [place], [address], [place] [facility] [place] [facility] [place] 10/03/2023 14:02:36 11/06/2023 text/html Patient is here [...] changes no other complaints. Renetta Mazariegos MD [address] [place] [address],[address], [place], [address], [facility] & [place] 11/06/2023 13:38:36 01/10/2024 text/html Patient is here [...] changes in the upper or lower limbs. Renetta Mazariegos MD [address], [place], [address], [facility] & [place] 01/10/2024 14:10:49 04/04/2024 text/html Thanks Dr. Painter [...] No memory loss. Renetta Mazariegos MD [address] [facility],[address], [place], [address], [place] [facility] & [place] 04/04/2024 12:32:39 OBGyn Episode No OBEpisode recorded.
--- NOTE | 2024-07-06 17:37 | P.PN_ITS ---
Subjective *Date: 07/06/24 *Time: 17:37 Interval history: Patient feels slightly better today, improved energy. Still requiring 3.5 L nasal cannula. Continue IV vancomycin, meropenem. Exam Data for Last 24 hours Vital signs and Labs for Last 24 Hours: Temp Pulse Resp BP Pulse Ox O2 Del Method O2 Flow Rate 97.8 F 90 18 118/70 94 L Nasal Cannula 3.5 07/06/24 16:00 07/06/24 16:00 07/06/24 16:00 07/06/24 16:00 07/06/24 16:00 07/06/24 16:00 07/06/24 15:00 Laboratory Results - last 24 hr 07/05/24 18:29: Troponin I < 0.01 07/05/24 21:32: Lactate 3.0 H, Troponin I < 0.01 07/05/24 23:50: Lactate 2.5 H 07/06/24 06:15: POC Glucose 117 H 07/06/24 06:40: WBC 19.1 H, RBC 2.94 L, Hgb 9.4 L, Hct 28.3 L, MCV 96.3, MCH 32.0 H, MCHC 33.2, RDW 12.6, Plt Count 164, MPV 8.7, Neut % (Auto) 86.8 H, Lymph % (Auto) 6.0 L, [place] % (Auto) 4.3, Eos % (Auto) 0.1, Baso % (Auto) 0.2, Neut # (Auto) 16.6 H, Lymph # (Auto) 1.2, [place] # (Auto) 0.8, Eos # (Auto) 0.0, Baso # (Auto) 0.0, Total Counted 100, Neutrophils % (Manual) 51, Band Neutrophils % 29.0 H, Lymphocytes % (Manual) 14, Monocytes % (Manual) 6, Platelet Estimate Normal, RBC Morphology Normal, Sodium 128 L, Potassium 3.6, Chloride 88 L, Carbon Dioxide 32 H, Anion Gap 11.6, BUN 23 H, Creatinine 1.10 H D, Estimated Creat Clear 75, Estimated GFR 50 L, Est GFR ( Amer) 61 D, Glucose 105 H, Hemoglobin A1c 4.6, Calcium 8.3 L, Magnesium 2.1 D, Procalcitonin 8.39 H, Free T4 1.00 04/12/25 11:30: POC Glucose 120 H I & O for Last 24 hours: Intake & Output 07/03/24 07/04/24 07/05/24 07/06/24 23:59 23:59 23:59 23:59 Intake Total 750 / 750 Output Total 0 / 0 0 / 0 Balance 0 / 540 750 / 750 Weight 91.626 kg 92.533 kg Microbiology Reports for the Last 24 Hours: Microbiology 07/05/24 16:25 Blood Blood Culture - Preliminary NO GROWTH AFTER 24 HOURS 07/05/24 16:10 Blood Blood Culture - Preliminary NO GROWTH AFTER 24 HOURS Assessment and Plan *Assessment and plan (1) Acute hyponatremia: Status: Acute Category: Medical Code(s): E87.1 - Hypo-osmolality and hyponatremia (2) Right upper lobe pneumonia: Status: Acute Category: Medical Code(s): J18.9 - Pneumonia, unspecified organism (3) Sepsis: Status: Acute Category: Medical Code(s): A41.9 - Sepsis, unspecified organism (4) Lung mass: Status: Acute Category: Medical Code(s): R91.8 - Other nonspecific abnormal finding of lung field (5) Acute exacerbation of chronic obstructive pulmonary disease: Status: Acute Category: Medical Code(s): J44.1 - Chronic obstructive pulmonary disease with (acute) exacerbation (6) Hypothyroid: Status: Chronic Qualifiers: Hypothyroidism type: acquired Qualified Code(s): E03.9 - Hypothyroidism, unspecified Category: Medical Code(s): E03.9 - Hypothyroidism, unspecified Plan Shantal Stanford is a 63-year-old female with a medical history of metastatic lung cancer to brain who presented with generalized weakness, shortness of breath and was admitted for sepsis secondary to right upper lobe pneumonia. #Acute hypoxic respiratory failure #Sepsis #Community-acquired pneumonia #Metastatic small cell lung carcinoma #Generalized weakness ? Progressive weakness over the past week, was not able to get up from floor after a fall. ? Unfortunately, patient has extensive small cell lung carcinoma with suspected metastasis to the brain. Follows with Dr. Painter and is on maintenance atezolizumab. At this time, patient would like to continue chemotherapy. ? CXR shows right upper lobe pneumonia, initial WBC 23. Procalcitonin today 8.39. ? WBC improving to 19 today, patient also feels better. Continues to require 3.5 L nasal cannula, wean as tolerated. ? Continue vancomycin, meropenem day 1 (allergic to penicillins, cephalosporins). ? Follow-up MRSA screen, sputum, blood, urine culture. Sputum will be induced. ? Follow-up CBC, CMP, ESR, CRP, procalcitonin in the morning. ? PT recommended home health on discharge. #Hyponatremia #Suspected SIADH ? Sodium 128 today, suspect SIADH from pneumonia/lung cancer. ? Encourage p.o. intake. ? Follow-up urine, serum osmolarity. #WILBER ? Creatinine 1.4 initially, improved to 1.1 with IV fluid resuscitation. #COPD ? Continue home Trelegy. DuoNebs as needed. #Hypothyroidism ? Continue home levothyroxine 175 mcg. TSH slightly elevated 5.65, but acceptable in the setting of acute illness. #HFpEF ? Currently euvolemic. Hold diuretics in the setting of sepsis. #Type 2 diabetes ? Hemoglobin A1c 4.6%. Supratherapeutic for age, risk of hypoglycemia especially in the setting of insulin use. ? Discontinue sliding scale insulin, ACHS glucose checks. ? Recommend discontinuing home insulin. #Anxiety/depression ? Continue home buspirone, venlafaxine. #GERD ? Continue home PPI. DNR DVT prophylaxis: Lovenox 40 mg
[2024-07-06] MEDS: PANTOPRAZOLE 40MG TABLET 40 MG PO (20:20)
[2024-07-06] MEDS: MONTELUKAST SODIUM 10MG TAB 10 MG PO (20:20)
[2024-07-06 20:47] LABS: MRSA DNA PCR Negative (Negative)
[2024-07-07] VITALS (7 sets, daily range): BP systolic 109–143; BP diastolic 56–78; PULSE 80–98; RESP 16–18; TEMP 36.4–36.7; O2SAT 92–98; BMI 33.4
--- NOTE | 2024-07-07 04:15 | PC.NURSE ---
Patient is alert and oriented. She was observed to have eyes closed, respirations even/unlabored on 3.5 L of oxygen via nasal cannula, and no apparent distress throughout the majority of the night. Upon assessment, she stated that she feels much better compared to yesterday. She did complain of shortness of breath once earlier this shift, and she requested to have a breathing treatment. Duoneb was given once per MAY with a satisfactory outcome. Patient reports having a nonproductive cough at this time; sputum sample remains uncollected thus far. Upon auscultation of her lungs, coarse crackles were heard in the left, diminished sounds heard throughout. Heart and bowel sounds within normal findings. Normal sinus rhythm on telemetry. Afebrile. A firm, painless herniation was noted across the patient's upper abdomen. The patient stated that she has been having a poor appetite since cancer treatment regimen. Patient has been getting up with minimal assistance and is using a walker during ambulation; she tolerates this well. At this time, the patient is resting in bed without any further complaints. No new needs at this time. Bed alarm on. Call light within reach.
[2024-07-07] MEDS: LEVOTHYROXINE 175MCG (0.175MG) TAB 175 MCG PO (06:28)
[2024-07-07] MEDS: FLUTICASONE/UMECLIDIN/VILANTER 200/62.5/25MCG INHALER 1 PUFF IH (07:00)
[2024-07-07 07:56] LABS: Basophils % 0.2 % (0.1-2.0); Eosinophils # 0.1 K/mm3 (0.0-0.4); Eosinophils % 0.7 % (0.1-12.0); Hemoglobin 9.7 g/dL (12.2-16.2); Lymphocytes # 0.8 K/mm3 (0.7-4.5); Lymphocytes % 5.5 % (10-50); Mean Corpuscular HGB Conc 32.3 g/dL (31.8-35.4); Mean Corpuscular Hemoglobin 31.4 pg (27.0-31.2); Mean Corpuscular Volume 97.1 fl (81-99); Mean Platelet Volume 8.9 fl (7.4-10.4); Monocytes # 0.6 K/mm3 (0.1-1.0); Neutrophils # 13.6 K/mm3 (1.8-7.8); Neutrophils % 88.6 % (37.0-80.0); Nucleated Red Blood Cells # 0 10^3/uL; Nucleated Red Blood Cells % 0 %; Platelet Count 183 K/mm3 (142-424); Red Blood Count 3.09 M/mm3 (4.20-5.40); Red Cell Distribution Width 12.7 % (11.5-17.5); Red Cell Distribution Width-SD 45.5 fL; White Blood Count 15.3 K/mm3 (4.8-10.8)
[2024-07-07 08:04] LABS: MANUAL DIFFERENTIAL MANUAL DIFFERENTIAL (MANUAL DIFF)
[2024-07-07 08:13] LABS: Chloride 90 mmol/L (98-107)
[2024-07-07 08:14] LABS: Albumin Level 3.2 g/dl (3.5-5.0); Potassium 3.2 mmoL/L (3.5-5.1); Sodium 134 mmol/L (136-145)
[2024-07-07 08:16] LABS: Alanine Aminotransferase 18 U/L (12-78); Anion Gap 9.2 mEq/L (5-15); Aspartate Amino Transferase 28 U/L (14-36); Bilirubin,Total 0.6 mg/dl (0.2-1.3); Blood Urea Nitrogen 14 mg/dl (7-17); Carbon Dioxide 38 mmol/L (22.0-30.0); Creatinine Clearance Estimated 82 mL/min (50-200); Estimated Glomerular Filt Rate 84 ml/min (>60); GFR (African American) 102 ML/MIN (>60)
[2024-07-07 08:17] LABS: Albumin/Globulin Ratio 0.9 (1.1-1.8); Alkaline Phosphatase 82 U/L (38-126); Calcium 8.6 mg/dl (8.4-10.2); Globulin 3.5 g/dL (1.3-3.2); Glucose 124 mg/dl (74-100); Total Protein,Serum 6.7 g/dl (6.3-8.2)
[2024-07-07 08:39] LABS: C-Reactive Protein 346.5 mg/L (0-4)
[2024-07-07] MEDS: VENLAFAXINE XR 75MG CAPSULE 75 MG PO (09:00)
[2024-07-07] MEDS: BUSPIRONE HCL 10 MG TABLET PO ×2 (09:00→12:07)
[2024-07-07] MEDS: VERAPAMIL SR 180MG TABLET 180 MG PO (09:00)
[2024-07-07] MEDS: MEROPENEM 1 GM in 0.9 % SODIUM CHLORIDE 100 ML IV (09:00)
[2024-07-07 09:01] LABS: Erythrocyte Sedimentation Rate 131 mm/hr (0-30)
[2024-07-07 09:55] LABS: Procalcitonin 5.36 ng/mL (0.0-2.0)
[2024-07-07 09:58] LABS: Lymphocytes % 4 % (10-50); Monocytes % 4 % (2-9); Neutrophils % 72 % (42-76); Total Cells Counted 100
[2024-07-07 09:59] LABS: Platelet Estimate Normal; RBC Morphology Normal
[2024-07-07] MEDS: IPRATROPIUM/ALBUTEROL 3 ML NEB IH (10:42)
[2024-07-07] MEDS: SODIUM CHLORIDE 3% 15ML NEB 3 ML IH (10:42)
--- NOTE | 2024-07-07 12:18 | EXP.DC.SUM ---
General Admission date:: 07/05/24 HPI HPI HPI: A 63-year-old female with a history of hyperlipidemia, chronic obstructive pulmonary disease, stage IV lung cancer with brain metastases, type 2 diabetes, congestive heart failure, and hypothyroidism presents with weakness, a fall, and altered mental status. Family reports the patient has become progressively weaker over the past few days. Yesterday, they found her lying on the floor with her back and head against a chair. They note she has been acting normally but is extremely weak, intermittently confused, and has had minimal oral intake of food or fluids. The patient denies any current symptoms. History was obtained from both the patient and family, who are deemed reliable. On examination, the patient is hemodynamically stable, alert, and oriented to person and place, with a Ruth Coma Scale of 15. She is moving all extremities spontaneously, with pupils equal and reactive to light. Vital signs include blood pressure 117/62 mmHg, heart rate 118 bpm, oxygen saturation 97% on 4 L nasal cannula, and respiratory rate of 30 breaths per minute. Physical exam reveals a chronically ill-appearing female in no acute distress. Lung exam shows isolated right upper lobe wheezes with otherwise normal breath sounds. Abdomen is soft, nontender, and nondistended. Cardiac exam is notable for tachycardia without murmurs, gallops, or rubs. No lower extremity edema is present. Diagnostic workup reveals leukocytosis of 22,900 with elevated neutrophils (88.4%) and monocytes (1.3 absolute). Venous blood gas shows mild alkalosis (pH 7.44), normal pCO2 (39 mmHg), normal bicarbonate (25.9 mmol/L), and elevated lactic acid (4.2 mmol/L). Electrolytes demonstrate hyponatremia (sodium 129 mmol/L, down from 135 mmol/L yesterday) and low magnesium (0.9 mg/dL). Renal function is impaired with creatinine 2.3 mg/dL, BUN 24 mg/dL, and estimated GFR 21 mL/min/1.73m?. Thyroid function tests show elevated TSH (5.65 mIU/L) with normal T4 (7.1 mcg/dL). Coagulation studies are normal (INR 1.11, APTT 29.7 seconds). . Electrocardiogram shows sinus tachycardia at 118 bpm with prolonged QTc (504 ms) but no ischemic changes. Chest X-ray and chest CT, independently interpreted, reveal right upper lobe consolidation consistent with pneumonia, with new small nodules in the right lung noted on CT, possibly neoplastic or inflammatory. Head CT shows no acute intracranial hemorrhage, with known brain metastases poorly visualized (previously seen on MRI 04/29/2024) and asymmetric low density in the left cerebellum, better evaluated with MRI. In the emergency department, the patient received a sepsis fluid bolus, intravenous vancomycin, levofloxacin, and metronidazole for suspected pneumonia and sepsis. Magnesium was repleted with 4 g intravenous magnesium sulfate and 800 mg oral magnesium oxide for hypomagnesemia. On reevaluation, vital signs have improved, including blood pressure and heart rate, with the patient mentating appropriately, following commands, and demonstrating good capillary refill. Hospital Course Hospital Course Hospital Course: Shantal Stanford is a 63-year-old female with a medical history of metastatic lung cancer to brain who presented with generalized weakness, shortness of breath and was admitted for sepsis secondary to right upper lobe pneumonia. # Chronic hypoxic respiratory failure #Sepsis #Community-acquired pneumonia #Metastatic small cell lung carcinoma #Generalized weakness ? Progressive weakness over the past week, was not able to get up from floor after a fall. ? Unfortunately, patient has extensive small cell lung carcinoma with suspected metastasis to the brain. Follows with Dr. Painter and is on maintenance atezolizumab. At this time, patient would like to continue chemotherapy. ? CXR shows right upper lobe pneumonia, initial WBC 23. Procalcitonin today 8.39. ? Likely improved with vancomycin, meropenem. MRSA screen, blood cultures negative. Insignificant sputum output for culture. ? Discharged with levofloxacin for 4 more days. On baseline oxygen 3.5 L. ? PT recommended home health on discharge. ? Continue regular follow-ups with Dr. Painter with oncology. #WILBER ? Creatinine 1.4 initially, improved to 1.1 with IV fluid resuscitation. #COPD ? Continue home Trelegy. #Hypothyroidism ? Continue home levothyroxine 175 mcg. TSH slightly elevated 5.65, but acceptable in the setting of acute illness. #HFpEF ? Currently euvolemic. Continue home regimen. #Anxiety/depression ? Continue home buspirone, venlafaxine. #GERD ? Continue home PPI. Total time spent on discharge: 32 minutes on chart review, counseling, documentation, and direct care with patient. Exam Data for Last 24 hours Vital signs and Labs for Last 24 Hours: Temp Pulse Resp BP Pulse Ox O2 Del Method O2 Flow Rate 97.9 F 87 17 109/56 L 97 Nasal Cannula 4 07/07/24 12:06 07/07/24 12:06 07/07/24 12:06 07/07/24 12:06 07/07/24 12:06 07/07/24 12:06 07/07/24 12:06 Laboratory Results - last 24 hr 07/06/24 04:06: Urine Sodium 11.0 L 07/06/24 06:40: Hemoglobin A1c 4.6, Free T4 1.00 07/06/24 18:11: MRSA (PCR) Negative 07/07/24 06:55: WBC 15.3 H, RBC 3.09 L, Hgb 9.7 L, Hct 30.0 L, MCV 97.1, MCH 31.4 H, MCHC 32.3, RDW 12.7, Plt Count 183, MPV 8.9, Neut % (Auto) 88.6 H, Lymph % (Auto) 5.5 L, [place] % (Auto) 4.0, Eos % (Auto) 0.7, Baso % (Auto) 0.2, Neut # (Auto) 13.6 H, Lymph # (Auto) 0.8, [place] # (Auto) 0.6, Eos # (Auto) 0.1, Baso # (Auto) 0.0, Total Counted 100, Neutrophils % (Manual) 72, Band Neutrophils % 20.0 H, Lymphocytes % (Manual) 4 L, Monocytes % (Manual) 4, Platelet Estimate Normal, RBC Morphology Normal, ESR 131 H, Sodium 134 L, Potassium 3.2 L, Chloride 90 L, Carbon Dioxide 38 H, Anion Gap 9.2, BUN 14 D, Creatinine 0.70 D, Estimated Creat Clear 82, Estimated GFR 84, Est GFR ( Amer) 102 D, Glucose 124 H, Calcium 8.6, Magnesium 2.0, Total Bilirubin 0.6, AST 28, ALT 18 D, Alkaline Phosphatase 82, C-Reactive Protein 346.5 H, Total Protein 6.7, Albumin 3.2 L, Globulin 3.5 H, Albumin/Globulin Ratio 0.9 L, Procalcitonin 5.36 H I & O for Last 24 hours: Intake & Output 07/04/24 07/05/24 07/06/24 07/07/24 23:59 23:59 23:59 23:59 Intake Total 1050 / 1330 280 / 280 Output Total 0 / 0 0 / 0 0 / 0 Balance 0 / 540 1050 / 1330 280 / 280 Weight 91.626 kg 92.533 kg 90.945 kg Microbiology Reports for the Last 24 Hours: Microbiology 07/05/24 16:25 Blood Blood Culture - Preliminary NO GROWTH AFTER 24 HOURS 07/05/24 16:10 Blood Blood Culture - Preliminary NO GROWTH AFTER 24 HOURS Constitutional Constitutional: no acute distress *Routine HEENT Exam Head: Present normocephalic Eye: Present EOMI and PERRL ENT: Present mucous membranes moist *Routine Neck Exam Neck: Present supple; Absent lymphadenopathy *Routine Respiratory Exam Respiratory: Present crackles *Routine Cardiovascular Exam Cardiovascular: Present RRR *Routine Abdominal Exam Abdominal: Present soft and normoactive bowel sounds; Absent tenderness *Routine Extremities Exam Extremities: Absent cyanosis, clubbing or edema *Routine Skin Exam Skin: Present warm; Absent rash *Routine Neurological Exam Neurological: Present alert and oriented X3 Results Data Completed and Pending Labs on day of discharge: Labs from last 24 hours 07/07/24 07/06/24 07/06/24 06:55 18:11 06:40 WBC 15.3 H RBC 3.09 L Hgb 9.7 L Hct 30.0 L MCV 97.1 MCH 31.4 H MCHC 32.3 RDW 12.7 Plt Count 183 MPV 8.9 Neut % (Auto) 88.6 H Lymph % (Auto) 5.5 L [place] % (Auto) 4.0 Eos % (Auto) 0.7 Baso % (Auto) 0.2 Neut # (Auto) 13.6 H Lymph # (Auto) 0.8 [place] # (Auto) 0.6 Eos # (Auto) 0.1 Baso # (Auto) 0.0 Total Counted 100 Neutrophils % (Manual) 72 Band Neutrophils % 20.0 H Lymphocytes % (Manual) 4 L Monocytes % (Manual) 4 Platelet Estimate Normal RBC Morphology Normal ESR 131 H Sodium 134 L Potassium 3.2 L Chloride 90 L Carbon Dioxide 38 H Anion Gap 9.2 BUN 14 D Creatinine 0.70 D Estimated Creat Clear 82 Estimated GFR 84 Est GFR ( Amer) 102 D Glucose 124 H Hemoglobin A1c 4.6 Calcium 8.6 Magnesium 2.0 Total Bilirubin 0.6 AST 28 ALT 18 D Alkaline Phosphatase 82 C-Reactive Protein 346.5 H Total Protein 6.7 Albumin 3.2 L Globulin 3.5 H Albumin/Globulin Ratio 0.9 L Procalcitonin 5.36 H Free T4 1.00 Urine Sodium MRSA (PCR) Negative 07/06/24 04:06 WBC RBC Hgb Hct MCV MCH MCHC RDW Plt Count MPV Neut % (Auto) Lymph % (Auto) [place] % (Auto) Eos % (Auto) Baso % (Auto) Neut # (Auto) Lymph # (Auto) [place] # (Auto) Eos # (Auto) Baso # (Auto) Total Counted Neutrophils % (Manual) Band Neutrophils % Lymphocytes % (Manual) Monocytes % (Manual) Platelet Estimate RBC Morphology ESR Sodium Potassium Chloride Carbon Dioxide Anion Gap BUN Creatinine Estimated Creat Clear Estimated GFR Est GFR ( Amer) Glucose Hemoglobin A1c Calcium Magnesium Total Bilirubin AST ALT Alkaline Phosphatase C-Reactive Protein Total Protein Albumin Globulin Albumin/Globulin Ratio Procalcitonin Free T4 Urine Sodium 11.0 L MRSA (PCR) Preliminary micro results at discharge 07/05/24 16:25 Blood Culture - Preliminary Blood NO GROWTH AFTER 24 HOURS 07/05/24 16:10 Blood Culture - Preliminary Blood NO GROWTH AFTER 24 HOURS DS: Diagnosis Discharge Diagnosis (1) Acute hyponatremia: Status: Acute Code(s): E87.1 - Hypo-osmolality and hyponatremia (2) Right upper lobe pneumonia: Status: Acute Code(s): J18.9 - Pneumonia, unspecified organism (3) Sepsis: Status: Acute Code(s): A41.9 - Sepsis, unspecified organism (4) Lung mass: Status: Acute Code(s): R91.8 - Other nonspecific abnormal finding of lung field (5) Acute exacerbation of chronic obstructive pulmonary disease: Status: Acute Code(s): J44.1 - Chronic obstructive pulmonary disease with (acute) exacerbation (6) Hypothyroid: Status: Chronic Code(s): E03.9 - Hypothyroidism, unspecified Qualifiers: Hypothyroidism type: acquired Qualified Code(s): E03.9 - Hypothyroidism, unspecified Meds Home Medications and Allergies Home Medications ?Medication ?Instructions ?Recorded ?Confirmed ?Type pantoprazole 40 mg tablet,delayed 40 mg PO HS 06/10/18 07/05/24 History release buspirone 10 mg tablet 10 mg PO TID 04/06/20 07/06/24 History montelukast 10 mg tablet 10 mg PO HS 04/06/20 07/06/24 History fluticasone fur. 200 mcg-umeclid 1 inh inhalation DAILY 90 days #60 08/12/20 07/05/24 Rx 62.5 mcg-vilant 25 mcg ea inhalat.powder (Trelegy Ellipta) clonazepam 0.5 mg tablet 0.5 mg PO BIDP PRN Anxiety 09/06/23 07/06/24 History bisoprolol fumarate 5 mg tablet 5 mg PO DAILY 11/28/23 07/05/24 History venlafaxine 75 mg capsule,extended 75 mg PO DAILY 11/28/23 07/06/24 History release 24 hr levothyroxine 175 mcg tablet 175 mcg PO DAILY thyroid #90 tabs 11/29/23 07/05/24 Rx ipratropium 0.5 mg-albuterol 3 mg 3 ml inhalation QIDP PRN shortness 07/06/24 07/06/24 History (2.5 mg base)/3 mL nebulization of breath or wheezing soln verapamil 180 mg 24 hr 180 mg PO DAILY 07/06/24 07/06/24 History capsule,extended release levofloxacin 750 mg tablet 750 mg PO 1100 4 days #4 tabs 07/07/24 Rx New Prescriptions to Start Prescriptions: levofloxacin Aditya Hawthorne Allergies Allergy/AdvReac Type Severity Reaction Status Date / Time cephalexin (From KEFLEX) Allergy Mild Verified 07/04/24 09:51 Penicillins Allergy Mild Verified 07/04/24 09:51 Discharge Plan Disposition Patient Disposition: Home Health Service Condition: Fair Discharge Order Discharge Orders: Discharge Order (Routine); Ordered 07/07/24 Ordered By: Aditya Hawthorne Follow up Plan Follow up with: Mahendra Painter MD [Staff Physician] - Enter time for follow up Prescriptions/Medication Reconciliation: New levofloxacin 750 mg Tablet 750 mg PO 1100 4 Days Qty: 4 0RF Continued clonazepam 0.5 mg tablet 0.5 mg PO BIDP PRN (Reason: Anxiety) venlafaxine 75 mg capsule,extended release 24hr 75 mg PO DAILY levothyroxine 175 mcg tablet 175 mcg PO DAILY Qty: 90 3RF Trelegy Ellipta 200-62.5-25 mcg blister with device 1 inh INHALATION DAILY 90 Days Qty: 60 3RF buspirone 10 MG tablet 10 mg PO TID montelukast 10 MG tablet 10 mg PO HS pantoprazole 40 MG tablet,delayed release (DR/EC) 40 mg PO HS verapamil 180 mg capsule,ext rel. pellets 24 hr 180 mg PO DAILY Patient Comments: TAKE 1 CAPSULE BY MOUTH ONCE DAILY ipratropium-albuterol 0.5 mg-3 mg(2.5 mg base)/3 mL solution for nebulization 3 ml INHALATION QIDP PRN (Reason: shortness of breath or wheezing) Held bisoprolol fumarate 5 mg tablet 5 mg PO DAILY Hold Instructions: Resume on 07/21/24. Your blood pressure and heart rate were stable without this medication. Please talk to your PCP before restarting this medication. Problem Reconciliation Problems Reviewed?: Yes Patient Discharge Instructions Patient Instructions: Pneumonia--Adult, Sepsis Print Language: Danish Providers Primary Care Provider: Mango Albert Admit Provider: Aditya Hawthorne Attending Provider: Aditya Hawthorne
[2024-07-07] MEDS: levoFLOXacin 750 MG TABLET PO (12:35)
[2024-07-07] MEDS: POTASSIUM CHLORIDE 20MEQ TAB 40 MEQ PO (12:38)
--- NOTE | 2024-07-08 09:53 | SW/DCPLANNER ---
Addendum entered by Georgiana Plummer 07/08/24 11:57: [facility] is able to accept patient. Original Note: Spoke with patient on the phone. Patient stated that she is doing well. patient stated that she hasnt called yet to schedule a follow up appointment with Dr Painter but plans on doing so here later. Patient stated that she is going to have someone go and pickle sorter her medicine from [facility]. Patient stated that she has no concerns or questions at this time. Eber Reed Spoke with patient stated that she is interested in home health services and that she doesnt have a preference on where to send her info to. I will send her information to [facility] and update when i hear back to see if they can accpet patient. Eber Reed
--- NOTE | 2024-07-08 15:33 | PC.NURSE ---
Jessica in lab called stating they were unable to run osmolarity. Dr. Hawthorne notified.
[2024-07-10 06:37] LABS: Osmolality, Urine 235 mOsmol/kg (.)
== END 2024-07-07 15:29 | disposition home health service (06) | DRG 871 ==
LOC: ER 17:47 → 2ND 18:21 → ER 18:56 → 2ND 07-06 06:11
PROVIDERS: Nurse Practitioner Family; Admitting Provider Student in an Organized Health Care Education/Training Program; Emergency Provider Emergency Medicine; PCP Internal Medicine Adolescent Medicine; Visit Provider Student in an Organized Health Care Education/Training Program
DX: A41.9 Sepsis, unspecified organism (principal); J18.9 Pneumonia, unspecified organism; E87.1 Hypo-osmolality and hyponatremia; J44.1 Chronic obstructive pulmonary disease with (acute) exacerbation; C34.90 Malignant neoplasm of unspecified part of unspecified bronchus or lung; C79.31 Secondary malignant neoplasm of brain; I50.30 Unspecified diastolic (congestive) heart failure; N17.9 Acute kidney failure, unspecified; E83.42 Hypomagnesemia; R91.8 Other nonspecific abnormal finding of lung field; E03.9 Hypothyroidism, unspecified; Z77.22 Contact with and (suspected) exposure to environmental tobacco smoke (acute) (chronic); E78.5 Hyperlipidemia, unspecified; I11.0 Hypertensive heart disease with heart failure; R00.0 Tachycardia, unspecified; D72.829 Elevated white blood cell count, unspecified; F41.9 Anxiety disorder, unspecified; F32.A Depression, unspecified; K21.9 Gastro-esophageal reflux disease without esophagitis; E11.9 Type 2 diabetes mellitus without complications; E66.9 Obesity, unspecified; Z74.1 Need for assistance with personal care; R53.1 Weakness; R41.82 Altered mental status, unspecified; Z91.81 History of falling; Z98.890 Other specified postprocedural states; Z82.49 Family history of ischemic heart disease and other diseases of the circulatory system; Z82.3 Family history of stroke; Z80.9 Family history of malignant neoplasm, unspecified; Z83.3 Family history of diabetes mellitus; Z82.5 Family history of asthma and other chronic lower respiratory diseases; Z79.51 Long term (current) use of inhaled steroids; Z79.890 Hormone replacement therapy; Z79.899 Other long term (current) drug therapy; Z88.1 Allergy status to other antibiotic agents; Z88.0 Allergy status to penicillin; Z68.33 Body mass index [BMI] 33.0-33.9, adult; Z99.89 Dependence on other enabling machines and devices; Z79.60 Long term (current) use of unspecified immunomodulators and immunosuppressants
CPT/HCPCS: 36415; 70470; 71045; 80048; 80053; 81001; 82803; 82962; 83036; 83605; 83735; 83930; 83935; 84145; 84436; 84439; 84443; 84484; 84540; 85007; 85025; 85610; 85651; 85730; 86140; 86803; 87040; 87070; 87086; 87205; 87389; 87641; 93005; 94640; 97163; 99291; J1836; J1956; J2185; J3372; J3475; J7120; Q9967

== ENCOUNTER 2024-07-16 13:41 | Outpatient (CLI) | payer MEDICARE, BC, SELFPAY ==
--- OUTSIDE RECORDS SUMMARY | 2024-07-16 13:44 | XMS_ITS | Data Portability ---
Author Organization [place] - [facility] Address [address] [place] [address] Care Team Providers Care Ticket Scheduler Name Role Phone LALIT PAINTER Referring Provider RENETTA MAZARIEGOS Radiation Oncologist [phone] Assessment Encounter Date Assessment Date Assessment LastModified [...] be scheduled on or around 05/02/20242024 025 [place] [id number] [facility] [address], [place], [address], 10:17:19 Medication Orders Magic Mouthwash w/ Nystatin 2023 024 [facility], [address] [facility] [place], [id number], 15:28:47 Patient TargetsNo targets recorded. Patient Instructions Encounter Date Encounter Id Patient Instructions Last Modified By Organization Details Last Modified Time 10/02/2023 [id number] Patient tolerating treatments well apart she developed [...] contr ast No observ ation [facility]. [facility] [address], [place], [id number], 01/10/2024 14:01:21 04/16/19 25 03/15/2024 MRI, brain , w/wo contr ast No observ ation record ed. nparkerrose Not Available 03/28 09:44:05 05/24/19 25 04/29/2024 MRI, brain , w/wo contr ast No observ ation [facility]. [facility] [address], [place], [address], 05/27/2024 07:48:22 Result Notes None recorded. Problems Name Problem SNOMED Code Status Onset Date Resolution Date Notes Provider Name and Address Organization Details Recorded Time Small cell carcinoma of lung 563329078 Active 024 CASEY Acevedo - KATH[place] - [place] & [place] 4 09:44:19 Metastatic malignant neoplasm to brain 40189526 Active 024 CASEY Acevedo [facility] & [place] 4 09:44:41 Acute mucositis 070688532 Active 024 CASEY Acevedo [facility] & [place] 4 13:51:43 Problem Notes None recorded. Procedures Surgical History Date Name Laterality Status Provider Name and Address Organization Details Recorded Time 08/31/19 24 endoscopic endobronchial ultrasonography guided transbronchial needle aspiration of mediastinal lymph node completed Fatoumata VÁZQUEZ [facility] & [place] 09/08/2023 10:42:33 08/21/19 24 craniotomy completed Fatoumata VÁZQUEZ [facility] & [place] 09/08/2023 10:42:09 Carpal tunnel surgery completed Fatoumata VÁZQUEZ [facility] & [place] 09/08/2023 10:41:49 Imaging Results Imaging Date Name Status LastModified by Organiz ation Details LastModified Time 12/14/2023 MRI, brain + brain stem, w/ contrast [facility] Dairy Equipment Specialist [address], [place], [address], 01/10/2024 14:01:21 03/15/2024 MRI, brain, w/wo contrast [facility] not available 04/16/2024 09:44:05 04/29/2024 MRI, brain, w/wo contrast active [facility] Dairy Equipment Specialist [address], [place], [address], 05/27/2024 07:48:22 Procedure Notes None recorded. Medical Equipment None Reported. Allergies Allergen ID Allergen Name Allergen Category Reaction Reaction Severity Criticality Documentation Date Start Date Code Code System Note Provider Name and Address Organization Details Recorded Time 493339 Product containin g penicilli n (product) medicatio n Not available Not available Not available 09/08/2023 29290 8001 SNOMED CASEY Acevedo [facility] & [place] 4 13:53:29 056279 Keflex medicatio n Not available Not available Not available 09/08/202304507 7 RxNorm Fatoumata weller [place] [facility] - [place] & [place] 4 10:54:06 Medications Name Sig Start Date [...] /min 119 mm[Hg] 66 mm[Hg] Fatoumata VÁZQUEZ [facility] 4 13:45:57 Date Recorded Body weight Body temperature Oxygen saturation Oxygen saturation in Arterial blood by Pulse oximetry Heart rate Respiratory rate Systolic blood pressure Diastolic blood pressure Provider Name and Address Organization Details Last Updated DateTime 4 865399. 68 g 97.5 [degF] 98 % 98 % 96 /min 19 /min 125 mm[Hg] 67 mm[Hg] Fatoumata Ron [facility] 4 13:28:04 Date Recorded Body temperature Oxygen saturation Oxygen saturation in Arterial blood by Pulse oximetry Inhaled oxygen flow rate Heart rate Respiratory rate Systolic blood pressure Diastolic blood pressure Provider Name and Address Organization Details Last Updated DateTime 4 97 [degF] 99 % 99 % 3 L/min 82 /min 20 /min 125 mm[Hg] 68 mm[Hg] Fatoumata Lozada [facility] & [place] 4 13:52:57 Date Recorded Body weight Body temperature Oxygen saturation Oxygen saturation in Arterial blood by Pulse oximetry Heart rate Respiratory rate Systolic blood pressure Diastolic blood pressure Provider Name and Address Organization Details Last Updated DateTime 5 14661.2 2 g 97.3 [degF] 95 % 95 % 87 /min 19 /min 154 mm[Hg] 72 mm[Hg] Fatoumatabeth Lozada [facility] & [place] 5 12:14:43 Social History Question Answer Notes LastModified by Organizat ion Details LastModified Time Tobacco Smoking Status Former Smoker Fatoumatabeth Lozada [facility] & [place] 09/08/2023 10:41:23 Do You Or Have You [...] SNOMED-CT Code Diagnosis ICD10 Code Diagnosis Note [id number] [facility] [address] 8 09/08/2023 09:37:05 09/08/2023 10:46:00 Small cell carcinoma of lung 972036265 C34.90 Metastatic malignant neoplasm to brain 55362176 C79.31 [id number] Renetta Mazariegos MD [place] [address] 8 09/13/2023 13:19:24 09/13/2023 15:32:20 Metastatic malignant neoplasm to brain 10570021 C79.31 Small cell carcinoma of lung 626381739 C34.90 [id number] [facility] [place] [address] 8 09/19/2023 13:36:21 09/19/2023 14:37:37 Small cell carcinoma of lung 934539870 C34.90 Metastatic malignant neoplasm to brain 75020052 C79.31 [id number] Renetta Mazariegos MD [place] [address] 8 09/20/2023 13:28:45 09/20/2023 14:17:44 Metastatic malignant neoplasm to brain 50883770 C79.31 Small cell carcinoma of lung 835972442 C34.90 [id number] Renetta Mazariegos MD [place] [address] 8 09/21/2023 13:39:23 09/21/2023 14:06:20 Small cell carcinoma of lung 964339024 C34.90 Metastatic malignant neoplasm to brain 75632153 C79.31 [id number] Renetta Mazariegos MD [place] [address] 8 09/24/2023 10:05:25 09/24/2023 10:59:16 Metastatic malignant neoplasm to brain 28872239 C79.31 Small cell carcinoma of lung 794452203 C34.90 [id number] Renetta Mazariegos MD [place] [address] 8 09/25/2023 08:19:34 09/25/2023 09:39:32 Small cell carcinoma of lung 643966011 C34.90 Metastatic malignant neoplasm to brain 87153996 C79.31 [id number] Renetta Mazariegos MD [place] [address] 8 09/22/2023 10:50:20 09/22/2023 11:24:40 Metastatic malignant neoplasm to brain 37266780 C79.31 [id number] Renetta Mazariegos MD [place] [address] 8 09/26/2023 08:24:03 09/26/2023 09:27:30 Metastatic malignant neoplasm to brain 19130191 C79.31 Small cell carcinoma of lung 370407889 C34.90 [id number] Renetta aMzariegos MD [place] [address] 8 09/27/2023 08:12:42 09/27/2023 11:08:08 Small cell carcinoma of lung 950343727 C34.90 Metastatic malignant neoplasm to brain 28311483 C79.31 [id number] Renetta Mazariegos MD [place] [address] 8 10/02/2023 13:36:53 10/02/2023 14:14:11 Small cell carcinoma of lung 633565822 C34.90 Metastatic malignant neoplasm to brain 39592858 C79.31 Acute mucositis 86086312 8 K12.30 [id number] Renetta Mazariegos MD [place] [address] 8 10/03/2023 13:36:12 10/03/2023 15:41:36 Small cell carcinoma of lung 170080450 C34.90 Metastatic malignant neoplasm to brain 03700552 C79.31 [id number] Renetta Mazariegos MD [place] [address] 8 11/06/2023 13:00:38 11/06/2023 14:00:15 Small cell carcinoma of lung 097652816 C34.90 Metastatic malignant neoplasm to brain 56116235 C79.31 [id number] Renetta Mazariegos MD [place] [address] 8 01/10/2024 13:38:12 01/10/2024 15:03:23 Metastatic malignant neoplasm to brain 94807383 C79.31 Small cell carcinoma of lung 426653988 C34.90 [id number] Renetta Mazariegos MD [place] [address] 8 04/04/2024 11:58:19 04/04/2024 12:41:56 Metastatic malignant neoplasm to brain 78507968 C79.31 Small cell carcinoma of lung 362090520 C34.90 Health Concerns Section Related Observation LastModified by Organization Detai ls LastModified Time None Recorded Concern Status LastModified by Organization Details LastModified Time None Recorded Advance Directives Directive None Recorded Payers Encounter Date Sequence Insurance Name Policy Number Policy Richards Covered Member ID Richards Member ID Guarantor Name 10/02/2023 2 [place] [id number] Shantal Stanford [id number] Shantal Stanford 10/02/2023 1 [place] Shantal Stanford [id number] Shantal Stanford 10/03/2023 2 [place] [id number] Shantal Welch Bach [id number] Shantal Stanford 10/03/2023 1 [place] Shantal L Bach [id number] Shantal Stanford 11/06/2023 2 [place] [id number] Shantal L Bach [id number] Shantal Stanford 11/06/2023 1 [place] Shantal L Bach [id number] Shantal Stanford 01/10/2024 2 [place] [id number] Shantal L Bach [id number] Shantal Stanford 01/10/2024 1 [place] Shantal L Bach [id number] Shantal Stanford 04/04/2024 2 [place] [id number] Shantal L Bach [id number] Shantal Stanford 04/04/2024 1 [place] Shantal Welch Bach [id number] Shantal Stanford Notes Date Note Type [...] 24 hours a day. Renetta Mazariegos MD [address] [place] [address],[address], [place], [address], [place] [facility] & [place] 10/03/2023 14:02:36 11/06/2023 text/html Patient is here [...] changes no other complaints. Renetta Mazariegos MD [address] [place] [address],[address], [place], [address], [facility] & [place] 11/06/2023 13:38:36 01/10/2024 text/html Patient is here [...] or lower limbs. Renetta Mazariegos MD [address] [facility] [address], [place], [address], [facility] & [place] 01/10/2024 14:10:49 04/04/2024 text/html Thanks Dr. Painter [...] No memory loss. Renetta Mazariegos MD [address] [facility],[address], [place], [address], [place] [facility] [facility] & [place] 04/04/2024 12:32:39 OBGyn Episode No OBEpisode recorded.
--- NOTE | 2024-07-16 14:00 | MR_ITS ---
FINAL REPORT CLINICAL HISTORY: F/U lung AND BRAIN cancer COMPARISON: 04/29/2024 FINDINGS: Multiplanar MR imaging of the brain was performed without and with contrast. Midline structures are intact. There is abnormal signal throughout the white matter bilaterally consistent with chronic microvascular ischemia. Tiny focus of enhancement previously seen in the right parietal lobe is not visualized on today's exam. There is a small enhancing focus in the right occipital lobe measuring 4 mm on image 13 of series 10 which is stable. There is a tiny focus of enhancement in the superior right cerebellar hemisphere seen on image 6 of series 10 which is also stable. There are 2 contiguous foci in the superior left cerebellar hemisphere extending to the tentorium on axial imaging measuring up to 14 x 8 mm. This is best seen on series 10, image 7 and is slightly larger than on prior exam. There is mucoperiosteal thickening of the maxillary sinuses. Abnormal signal seen in the mastoid air cells consistent with chronic mastoiditis. IMPRESSION: Lesions of the left cerebellar hemisphere which have increased from prior exam likely due to progressive metastatic disease. Reviewed, Interpreted and Dictated by Kristopher Breen MD Transcribed by Sandy Osman Authenticated and [facility]
[2024-07-16] MEDS: GADOTERIDOL INJ 20ML SYRINGE 18 ML IV (14:32)
[2024-07-16] MEDS: SODIUM CHLORIDE 0.9% 10ML SYR (RAD ONLY) 10 ML IV (14:32)
== END 2024-07-16 23:59 | disposition home or self-care (01) ==
LOC: RAD 13:42
PROVIDERS: PCP Internal Medicine Adolescent Medicine; Visit Provider Internal Medicine Medical Oncology
DX: C34.91 Malignant neoplasm of unspecified part of right bronchus or lung (principal)
CPT/HCPCS: 70553; A9576

== ENCOUNTER 2024-07-18 09:28 | Outpatient (CLI) | payer MEDICARE, BC, SELFPAY ==
--- OUTSIDE RECORDS SUMMARY | 2024-07-18 09:31 | XMS_ITS | Data Portability ---
Author Organization [place] - [facility] Address [address] [place] [address] Care Team Providers Care Ball Warper Tender Name Role Phone LALIT PAINTER Referring Provider [...] be scheduled on or around 05/02/20242024 025 [place] [address] [facility] [address], [place], [address], 10:17:19 Medication Orders Magic Mouthwash w/ Nystatin 2023 024 [facility], [address] [facility] [place], [id number], 15:28:47 Patient TargetsNo targets recorded. Patient Instructions Encounter Date Encounter Id Patient Instructions Last Modified By Organization Details Last Modified Time 10/02/2023 [id number] Patient tolerating treatments well apart she developed [...] contr ast No observ ation [facility]. [facility] [address], [place], [address], 01/10/2024 14:01:21 04/16/19 25 03/15/2024 MRI, brain , w/wo contr ast No observ ation record ed. nparkerrose Not Available 03/28 09:44:05 05/24/19 25 04/29/2024 MRI, brain , w/wo contr ast No observ ation [facility] ed. [facility] [address], [place], [address], 05/27/2024 07:48:22 Result Notes None recorded. Problems Name Problem SNOMED Code Status Onset Date Resolution Date Notes Provider Name and Address Organization Details Recorded Time Small cell carcinoma of lung 729703233 Active 024 CASEY Acevedo - KATHIE - [place] & [place] 4 09:44:19 Metastatic malignant neoplasm to brain 81528994 Active 024 CASEY Acevedo [facility] & [place] 4 09:44:41 Acute mucositis 357053023 Active 024 CASEY Acevedo [facility] & [place] 4 13:51:43 Problem Notes None recorded. Procedures Surgical History Date Name Laterality Status Provider Name and Address Organization Details Recorded Time 08/31/19 24 endoscopic endobronchial ultrasonography guided transbronchial needle aspiration of mediastinal lymph node completed Fatoumata VÁZQUEZ [facility] & [place] 09/08/2023 10:42:33 08/21/19 24 craniotomy completed Fatoumata VÁZQUEZ [facility] & [place] 09/08/2023 10:42:09 Carpal tunnel surgery completed Fatoumata VÁZQUEZ [facility] & [place] 09/08/2023 10:41:49 Imaging Results Imaging Date Name Status LastModified by Organiz ation Details LastModified Time 12/14/2023 MRI, brain + brain stem, w/ contrast [facility] Transit Operations Supervisor [address], [place], [address], 01/10/2024 14:01:21 03/15/2024 MRI, brain, w/wo contrast [facility] Information not available 04/16/2024 09:44:05 04/29/2024 MRI, brain, w/wo contrast active [facility] Transit Operations Supervisor [address], [place], [address], 05/27/2024 07:48:22 Procedure Notes None recorded. Medical Equipment None Reported. Allergies Allergen ID Allergen Name Allergen Category Reaction Reaction Severity Criticality Documentation Date Start Date Code Code System Note Provider Name and Address Organization Details Recorded Time 207364 Product containin g penicilli n (product) medicatio n Not available Not available Not available 09/08/2023 71828 8001 SNOMED CASEY Acevedo [facility] & [place] 4 13:53:29 951758 Keflex medicatio n Not available Not available Not available 09/08/202368655 7 RxNorm Fatoumata weller [place] [facility] - [place] & [place] 4 10:54:06 Medications Name Sig Start Date [...] /min 119 mm[Hg] 66 mm[Hg] Fatoumata VÁZQUEZ [facility] 4 13:45:57 Date Recorded Body weight Body temperature Oxygen saturation Oxygen saturation in Arterial blood by Pulse oximetry Heart rate Respiratory rate Systolic blood pressure Diastolic blood pressure Provider Name and Address Organization Details Last Updated DateTime 4 895355. 68 g 97.5 [degF] 98 % 98 % 96 /min 19 /min 125 mm[Hg] 67 mm[Hg] Fatoumata Ron LPNT [facility] 4 13:28:04 Date Recorded Body temperature Oxygen saturation Oxygen saturation in Arterial blood by Pulse oximetry Inhaled oxygen flow rate Heart rate Respiratory rate Systolic blood pressure Diastolic blood pressure Provider Name and Address Organization Details Last Updated DateTime 4 97 [degF] 99 % 99 % 3 L/min 82 /min 20 /min 125 mm[Hg] 68 mm[Hg] Fatoumata Lozada [facility] & [place] 4 13:52:57 Date Recorded Body weight Body temperature Oxygen saturation Oxygen saturation in Arterial blood by Pulse oximetry Heart rate Respiratory rate Systolic blood pressure Diastolic blood pressure Provider Name and Address Organization Details Last Updated DateTime 5 01394.2 2 g 97.3 [degF] 95 % 95 % 87 /min 19 /min 154 mm[Hg] 72 mm[Hg] Fatoumatabeth Lozada [facility] & [place] 5 12:14:43 Social History Question Answer Notes LastModified by Organizat ion Details LastModified Time Tobacco Smoking Status Former Smoker Fatoumatabeth Lozada [facility] & [place] 09/08/2023 10:41:23 Do You Or Have You [...] SNOMED-CT Code Diagnosis ICD10 Code Diagnosis Note [id number] [facility] [address] 8 09/08/2023 09:37:05 09/08/2023 10:46:00 Small cell carcinoma of lung 482868701 C34.90 Metastatic malignant neoplasm to brain 31567072 C79.31 [id number] Renetta Mazariegos MD [place] [address] 8 09/13/2023 13:19:24 09/13/2023 15:32:20 Metastatic malignant neoplasm to brain 32244157 C79.31 Small cell carcinoma of lung 296145554 C34.90 [id number] [facility] [place] [address] 8 09/19/2023 13:36:21 09/19/2023 14:37:37 Small cell carcinoma of lung 622373688 C34.90 Metastatic malignant neoplasm to brain 46408093 C79.31 [id number] Renetta Mazariegos MD [place] [address] 8 09/20/2023 13:28:45 09/20/2023 14:17:44 Metastatic malignant neoplasm to brain 92826645 C79.31 Small cell carcinoma of lung 799930275 C34.90 [id number] Renetta Mazariegos MD [place] [address] 8 09/21/2023 13:39:23 09/21/2023 14:06:20 Small cell carcinoma of lung 374999921 C34.90 Metastatic malignant neoplasm to brain 89530279 C79.31 [id number] Renetta Mazariegos MD [place] [address] 8 09/24/2023 10:05:25 09/24/2023 10:59:16 Metastatic malignant neoplasm to brain 88053497 C79.31 Small cell carcinoma of lung 264683734 C34.90 [id number] Renetta Mazariegos MD [place] [address] 8 09/25/2023 08:19:34 09/25/2023 09:39:32 Small cell carcinoma of lung 059822364 C34.90 Metastatic malignant neoplasm to brain 42235287 C79.31 [id number] Renetta Mazariegos MD [place] [address] 8 09/22/2023 10:50:20 09/22/2023 11:24:40 Metastatic malignant neoplasm to brain 32723775 C79.31 [id number] Renetta Mazariegos MD [place] [address] 8 09/26/2023 08:24:03 09/26/2023 09:27:30 Metastatic malignant neoplasm to brain 06340825 C79.31 Small cell carcinoma of lung 919712220 C34.90 [id number] Renetta Mazariegos MD [place] [address] 8 09/27/2023 08:12:42 09/27/2023 11:08:08 Small cell carcinoma of lung 499397071 C34.90 Metastatic malignant neoplasm to brain 28063964 C79.31 [id number] Renetta Mazariegos MD [place] [address] 8 10/02/2023 13:36:53 10/02/2023 14:14:11 Small cell carcinoma of lung 822721303 C34.90 Metastatic malignant neoplasm to brain 99088898 C79.31 Acute mucositis 35819444 8 K12.30 [id number] Renetta Mazariegos MD [place] [address] 8 10/03/2023 13:36:12 10/03/2023 15:41:36 Small cell carcinoma of lung 603727909 C34.90 Metastatic malignant neoplasm to brain 08005757 C79.31 [id number] Renetta Mazariegos MD [place] [address] 8 11/06/2023 13:00:38 11/06/2023 14:00:15 Small cell carcinoma of lung 475237284 C34.90 Metastatic malignant neoplasm to brain 26105996 C79.31 [id number] Renetta Mazariegos MD [place] [address] 8 01/10/2024 13:38:12 01/10/2024 15:03:23 Metastatic malignant neoplasm to brain 31605636 C79.31 Small cell carcinoma of lung 110163506 C34.90 [id number] Renetta Mazariegos MD [place] [address] 8 04/04/2024 11:58:19 04/04/2024 12:41:56 Metastatic malignant neoplasm to brain 90237714 C79.31 Small cell carcinoma of lung 495637243 C34.90 Health Concerns Section Related Observation LastModified by Organization Detai ls LastModified Time None Recorded Concern Status LastModified by Organization Details LastModified Time None Recorded Advance Directives Directive None Recorded Payers Encounter Date Sequence Insurance Name Policy Number Policy Richards Covered Member ID Richards Member ID Guarantor Name 10/02/2023 2 [place] [id number] Shantal Stanford [id number] Shantal Stanford 10/02/2023 1 [place] Shantal Stanford [id number] Shantal Stanford 10/03/2023 2 [place] [id number] Shantal Welch Bach [id number] Shantal Stanford 10/03/2023 1 [place] Shantal L Bach [id number] Shantal Stanford 11/06/2023 2 [place] [id number] Shantal L Bach [id number] Shantal Stanford 11/06/2023 1 [place] Shantal L Bach [id number] Shantal Stanford 01/10/2024 2 [place] [id number] Shantal L Bach [id number] Shantal Stanford 01/10/2024 1 [place] Shantal L Bach [id number] Shantal Stanford 04/04/2024 2 [place] [id number] Shantal L Bach [id number] Shantal Stanford 04/04/2024 1 [place] Shantal Welch Bach [id number] Shantal Stanford Notes Date Note Type [...] 24 hours a day. Renetta Mazariegos MD [address] [place] [address],[address], [place], [address], [place] & [place] 10/03/2023 14:02:36 11/06/2023 text/html Patient is here [...] changes no other complaints. Renetta Mazariegos MD [address] [place] [address],[address], [place], [address], [facility] & [place] 11/06/2023 13:38:36 01/10/2024 text/html Patient is here [...] or lower limbs. Renetta Mazariegos MD [address], [place], [address], [facility] & [place] 01/10/2024 14:10:49 04/04/2024 text/html Thanks Dr. Painter [...] No memory loss. Renetta Mazariegos MD [address] [facility],[address], [place], [address], [place] [facility] [facility] & [place] 04/04/2024 12:32:39 OBGyn Episode No OBEpisode recorded.
[2024-07-18] MEDS: IOPAMIDOL-370 (76%);100ML BOTTLE 75 ML IV (09:51)
[2024-07-18] MEDS: SODIUM CHLORIDE 0.9% 10ML SYR (RAD ONLY) 10 ML IV (09:51)
--- NOTE | 2024-07-18 10:00 | CT_ITS ---
FINAL REPORT TECHNIQUE: Thin section axial images were obtained from the thoracic inlet through the upper abdomen after intravenous contrast injection. Reconstruction images were obtained from the axial data. Exam was performed using dose reduction technique. This study was performed with techniques to keep radiation doses as low as reasonably achievable (ALARA). Individualized dose reduction techniques using automated exposure control or adjustment of mA and/or kV according to the patient's size were employed. CLINICAL HISTORY: lung cancer COMPARISON: 05/22/2024 FINDINGS: There is no axillary lymphadenopathy. There is a large precarinal lymph node measuring 21 mm, was previously 17. There is a right hilar node as well, 22 mm in size, was previously 14. There is no left hilar adenopathy. There is no pleural effusion. A small pericardial effusion is present, increased since the prior exam. The left lung is clear. There has been interval development of ground glass opacities and airspace disease in the right upper lobe, more pronounced inferiorly and posteriorly, consistent with pneumonia. There is a right lower lobe nodule seen on image #54 of series 4, which measures 16 mm, was previously 17 mm. There is a cluster of nodules in the right lower lobe that were new on the prior CT of 05/22/2024, which are stable in appearance. There is a subpleural nodule on image #57 in the right lower lobe is unchanged. No acute osseous abnormality. IMPRESSION: New right upper lobe pneumonia, with lymphadenopathy that is favored to be reactive. Recommend [address] to confirm resolution. Otherwise stable exam when compared to prior. Reviewed, Interpreted and Dictated by Carmen Hermosillo MD Transcribed by Lawanda Del Toro Authenticated and [facility][1]
--- NOTE | 2024-07-18 10:00 | CT_ITS ---
FINAL REPORT TECHNIQUE: Thin section axial images are obtained through the abdomen and pelvis after intravenous contrast. Reconstruction images were obtained from the axial data. Exam was performed using dose reduction techniques. This study was performed with techniques to keep radiation doses as low as reasonably achievable (ALARA). Individualized dose reduction techniques using automated exposure control or adjustment of mA and/or kV according to the patient's size were employed. CLINICAL HISTORY: Lung Cancer COMPARISON: 05/22/2024 FINDINGS: LIVER: Homogeneous. No focal lesion. The mildly enlarged periportal lymph nodes remain unchanged. GALLBLADDER/BILIARY SYSTEM: Gallbladder is present. No gallstones. No biliary dilatation. SPLEEN: Unremarkable. PANCREAS: Unremarkable. ADRENALS: There are stable bilateral adrenal nodules. KIDNEYS/URETERS/BLADDER: No hydronephrosis, renal mass, or renal stone. Unremarkable urinary bladder. GI TRACT: No small bowel obstruction or dilatation. The appendix is not visualized, however there are no secondary signs of adjacent inflammatory change. Diverticulosis of the colon is noted, without evidence of acute diverticulitis. PELVIC ORGANS: The uterus is present. LYMPH NODES/RETROPERITONEUM/MESENTERY: No lymphadenopathy. No abdominal aortic aneurysm. ABDOMINAL WALL: There is a stable midline ventral hernia containing only fat, above the umbilicus. FREE FLUID: No ascites. BONES: No acute osseous abnormality. IMPRESSION: Stable bilateral adrenal nodules. Mildly enlarged periportal lymph nodes, unchanged since the prior CT. Reviewed, Interpreted and Dictated by Carmen Hermosillo MD Transcribed by Lawanda Del Toro Authenticated and [facility]
== END 2024-07-18 23:59 | disposition home or self-care (01) ==
LOC: RAD 09:29
PROVIDERS: PCP Internal Medicine Adolescent Medicine; Visit Provider Internal Medicine Medical Oncology
DX: C34.91 Malignant neoplasm of unspecified part of right bronchus or lung (principal)
CPT/HCPCS: 71260; 74177; Q9967

== ENCOUNTER 2024-07-25 09:13 | Outpatient (CLI) | payer MEDICARE, BC, SELFPAY ==
--- OUTSIDE RECORDS SUMMARY | 2024-07-25 09:16 | XMS_ITS | Data Portability ---
Author Organization [place] - [facility] Address [address] [place] [address] Care Team Providers Care Answering Service Operator Name Role Phone LALIT PAINTER Referring Provider DEBBI LAWSON Radiation Oncologist Assessment Encounter Date Assessment Date [...] Organization Details Last Modified Time Details Appointments OV EST 15 2024 01:30P Kevon Lawson MD Not available Not available Not available Lab None recorded. Referral None recorded. Procedures None recorded. Surgeries None recorded. Imaging MRI, brain, w/wo contrast - To be scheduled on or around 5 2024 025 [facility], [address] [facility] [address], [place], [address], 05/24/2024 10:17:19 Medication Orders Magic Mouthwash w/ Nystatin 2023 024 LAURA Aden [facility], [facility], [address] [place] [address] Sudhakar Andersen[place], [id number], 10/02/2023 15:28:47 Patient TargetsNo targets recorded. Patient Instructions Encounter Date Encounter Id Patient Instructions Last Modified By Organization Details Last Modified Time 10/02/2023 [id number] Patient tolerating treatments well apart she developed [...] contr ast No observ ation record ed. [email or web address] [facility] [address] [place] [address] [address] [place], [address], 01/10/2024 14:01:21 04/16/19 25 03/15/2024 MRI, brain , w/wo contr ast No observ ation record ed. [email or web address] Not Available 03/28 09:44:05 05/24/19 25 04/29/2024 MRI, brain , w/wo contr ast No observ ation record ed. [facility] [address], [place], [address], 05/27/2024 07:48:22 07/19/19 25 07/16/2024 MRI, brain , w/wo contr ast No observ ation record ed. [place] [address], [place], [address], 07/18/2024 11:24:43 Result Notes None recorded. Problems Name Problem SNOMED Code Status Onset Date Resolution Date Notes Provider Name and Address Organization Details Recorded Time Small cell carcinoma of lung 390208771 Active 024 Fatoumata weller, [place] [facility] - [place] & [place] 4 09:44:19 Metastatic malignant neoplasm to brain 16402837 Active 024 Fatoumata weller, [place] - [facility] - [place] [facility] [place] 4 09:44:41 Acute mucositis 535361306 Active 024 Fatoumata weller, [place] [facility] - [place] [facility] [place] 4 13:51:43 Problem Notes None recorded. Procedures Surgical History Date Name Laterality Status Provider Name and Address Organization Details Recorded Time 08/31/19 24 endoscopic endobronchial ultrasonography guided transbronchial needle aspiration of mediastinal lymph node completed Fatoumatabeth Ron [facility] - [place] [facility] [place] 09/08/2023 10:42:33 08/21/19 24 craniotomy completed Fatoumata Ron [facility] - [place] [facility] [place] 09/08/2023 10:42:09 Carpal tunnel surgery completed Fatoumata Ron [facility] - [place] [facility] [place] 09/08/2023 10:41:49 Imaging Results Imaging Date Name Status LastModified by Organiz ation Details LastModified Time 12/14/2023 MRI, brain + brain stem, w/ contrast completed [email or web address] [facility] [address], [place], [id number], 01/10/2024 14:01:21 03/15/2024 MRI, brain, w/wo contrast completed Information not available 04/16/2024 09:44:05 04/29/2024 MRI, brain, w/wo contrast active [facility] [address], [place], [address], 05/27/2024 07:48:22 07/16/2024 MRI, brain, w/wo contrast completed [facility] [address], [place], [place], [address], 07/18/2024 11:24:43 Procedure Notes None recorded. Medical Equipment None Reported. Allergies Allergen ID Allergen Name Allergen Category Reaction Reaction Severity Criticality Documentation Date Start Date Code Code System Note Provider Name and Address Organization Details Recorded Time 930848 Product containin g penicilli n (product) medicatio n Not available Not available Not available 09/08/2023 19790 8001 SNOMED Fatoumata weller, [place] - [facility] & [place] 4 13:53:29 288471 Keflex medicatio n Not available Not available Not available 09/08/2023 02470 7 RxNorm Fatoumata weller, [place] - [facility] & [place] 4 10:54:06 Medications Name Sig Start Date [...] Available Not Available pantoprazol e 40 mg tablet,chnu yed release active Not Available Not Available [...] Not Available No t Available amoxicillin 875 mg-potassiu m clavulanate 125 mg tablet TAKE 1 TABLET [...] 19 /min 119 mm[Hg] 66 mm[Hg] Fatoumata PEÑA [facility] [place] 4 13:45:57 Date Recorded Body weight Body temperature Oxygen saturation Oxygen saturation in Arterial blood by Pulse oximetry Heart rate Respiratory rate Systolic blood pressure Diastolic blood pressure Provider Name and Address Organization Details Last Updated DateTime 4 409322. 68 g 97.5 [degF] 98 % 98 % 96 /min 19 /min 125 mm[Hg] 67 mm[Hg] Fatoumata PEÑA [facility] & [place] 4 13:28:04 Date Recorded Body temperature Oxygen saturation Oxygen saturation in Arterial blood by Pulse oximetry Inhaled oxygen flow rate Heart rate Respiratory rate Systolic blood pressure Diastolic blood pressure Provider Name and Address Organization Details Last Updated DateTime 4 97 [degF] 99 % 99 % 3 L/min 82 /min 20 /min 125 mm[Hg] 68 mm[Hg] Fatoumatabeth Lozada [facility] & [place] 4 13:52:57 Date Recorded Body weight Body temperature Oxygen saturation Oxygen saturation in Arterial blood by Pulse oximetry Heart rate Respiratory rate Systolic blood pressure Diastolic blood pressure Provider Name and Address Organization Details Last Updated DateTime 5 57587.2 2 g 97.3 [degF] 95 % 95 % 87 /min 19 /min 154 mm[Hg] 72 mm[Hg] Fatoumata Lozada [facility] & [place] 5 12:14:43 Social History Question Answer Notes LastModified by Organizat ion Details LastModified Time Tobacco Smoking Status Former Smoker Fatoumata Lozada [facility] & [place] 09/08/2023 10:41:23 Do You Or Have You [...] [email or web address] Not available 08/25 10:38:50 Father Malignant neoplasm of lung 65 [email or web address] Not available 08/25 [...] SNOMED-CT Code Diagnosis ICD10 Code Diagnosis Note [id number] [facility] [address] [address] 09/08/2023 09:37:05 09/08/2023 10:46:00 Small cell carcinoma of lung 010737528 C34.90 Metastatic malignant neoplasm to brain 95752964 C79.31 [id number] MD ALBERTO Cast [place] [address] [place] [address] 09/13/2023 13:19:24 09/13/2023 15:32:20 Metastatic malignant neoplasm to brain 08581696 C79.31 Small cell carcinoma of lung 008502912 C34.90 [id number] MD ALBERTO [facility] [address] [address] 09/19/2023 13:36:21 09/19/2023 14:37:37 Small cell carcinoma of lung 543059023 C34.90 Metastatic malignant neoplasm to brain 40734231 C79.31 [id number] Debbi Lawson MD [place] [address] 8 09/20/2023 13:28:45 09/20/2023 14:17:44 Metastatic malignant neoplasm to brain 34090388 C79.31 Small cell carcinoma of lung 176210409 C34.90 [id number] Debbi Lawson MD [place] [address] 8 09/21/2023 13:39:23 09/21/2023 14:06:20 Small cell carcinoma of lung 190637051 C34.90 Metastatic malignant neoplasm to brain 59697849 C79.31 [id number] Debbi Lawson MD [place] [address] 8 09/24/2023 10:05:25 09/24/2023 10:59:16 Metastatic malignant neoplasm to brain 28522738 C79.31 Small cell carcinoma of lung 229171630 C34.90 [id number] Debbi Lawson MD [place] [address] 8 09/25/2023 08:19:34 09/25/2023 09:39:32 Small cell carcinoma of lung 933937592 C34.90 Metastatic malignant neoplasm to brain 84479734 C79.31 [id number] Debbi Lawson MD [place] [address] 8 09/22/2023 10:50:20 09/22/2023 11:24:40 Metastatic malignant neoplasm to brain 90627018 C79.31 [id number] Debbi Lawson MD [place] [address] 8 09/26/2023 08:24:03 09/26/2023 09:27:30 Metastatic malignant neoplasm to brain 26893390 C79.31 Small cell carcinoma of lung 496821325 C34.90 [id number] Debbi Lawson MD [place] [address] 8 09/27/2023 08:12:42 09/27/2023 11:08:08 Small cell carcinoma of lung 547544275 C34.90 Metastatic malignant neoplasm to brain 33191728 C79.31 [id number] Debbi Lawson MD [place] [address] 8 10/02/2023 13:36:53 10/02/2023 14:14:11 Small cell carcinoma of lung 783052903 C34.90 Metastatic malignant neoplasm to brain 07490429 C79.31 Acute mucositis 29191884 8 K12.30 [id number] Debbi Lawson MD [place] [address] 8 10/03/2023 13:36:12 10/03/2023 15:41:36 Small cell carcinoma of lung 592747722 C34.90 Metastatic malignant neoplasm to brain 53536203 C79.31 [id number] Debbi Lawson MD [place] [address] 8 11/06/2023 13:00:38 11/06/2023 14:00:15 Small cell carcinoma of lung 743377845 C34.90 Metastatic malignant neoplasm to brain 55410439 C79.31 [id number] Debbi Lawson MD [place] [address] 8 01/10/2024 13:38:12 01/10/2024 15:03:23 Metastatic malignant neoplasm to brain 17397621 C79.31 Small cell carcinoma of lung 967334896 C34.90 [id number] Debbi Lawson MD [place] [address] 8 04/04/2024 11:58:19 04/04/2024 12:41:56 Metastatic malignant neoplasm to brain 69520610 C79.31 Small cell carcinoma of lung 101731533 C34.90 Health Concerns Section Related Observation LastModified by Organization Detai ls LastModified Time None Recorded Concern Status LastModified by Organization Details LastModified Time None Recorded Advance Directives Directive None Recorded Payers Encounter Date Sequence Insurance Name Policy Number Policy Richards Covered Member ID Richards Member ID Guarantor Name 10/02/2023 2 [place] [id number] Shantal Welch Bach [id number] Shantal Stanford 10/02/2023 1 [place] Shantal Stanford [id number] Shantal Stanford 10/03/2023 2 [place] [id number] Shantal Stanford [id number] Shantal Stanford 10/03/2023 1 [place] Shantal Stanford [id number] Shantal Stanford 11/06/2023 2 [place] [id number] Shantal Stanford [id number] Shantal Stanford 11/06/2023 1 [place] Shantal Welch Bach [id number] Shantal Stanford 01/10/2024 2 [place] [id number] Shantal Stanford [id number] Shantal Stanford 01/10/2024 1 [place] Shantal Welch Bach [id number] Shantal Stanford 04/04/2024 2 [place] [id number] Shantal Stanford [id number] Shantal Stanford 04/04/2024 1 [place] Shantal Welch Bach [id number] Shantal Stanford Notes Date Note Type [...] to use oxygen 24 hours a day. Debbi Lawson MD [address] [place] [address],[address], [place], [address], [facility] 10/03/2023 14:02:36 11/06/2023 text/html Patient is here [...] sensory or motor changes no other complaints. Debbi Lawson MD [address] [place] [address],[address], [place], [address], [facility] & [place] 11/06/2023 13:38:36 01/10/2024 text/html Patient is here [...] changes in the upper or lower limbs. Debbi Lawson MD [address] [place] [address],[address], [place], [address], [facility] & [place] 01/10/2024 14:10:49 04/04/2024 text/html Thanks Dr. Painter [...] COPD no difficulty walking. No memory loss. Debbi Lawson MD [address] [place] [address],[address], [place], [address], [place] [facility] & [place] 04/04/2024 12:32:39 OBGyn Episode No OBEpisode recorded.
[2024-07-25 09:30] VITALS: BMI 33.4
[2024-07-25 10:35] LABS: Basophils % 0.3 % (0.1-2.0); Eosinophils # 0.2 Kmm3 (0.0-0.4); Eosinophils % 2.3 % (0.1-12.0); Hemoglobin 9.9 g/dL (12.2-16.2); Lymphocytes # 1.2 K/mm3 (0.7-4.5); Lymphocytes % 17.7 % (10-50); Mean Corpuscular HGB Conc 31.9 g/dL (31.8-35.4); Mean Corpuscular Hemoglobin 30.8 pg (27.0-31.2); Mean Corpuscular Volume 96.6 fl (81-99); Mean Platelet Volume 8.2 fl (7.4-10.4); Monocytes # 0.6 K/mm3 (0.1-1.0); Monocytes % 8.8 % (1.7-9.3); Neutrophils # 4.8 K/mm3 (1.8-7.8); Neutrophils % 70.6 % (37.0-80.0); Nucleated Red Blood Cells # 0 10^3/uL; Nucleated Red Blood Cells % 0 %; Platelet Count 269 K/mm3 (142-424); Red Blood Count 3.21 M/mm3 (4.20-5.40); Red Cell Distribution Width 12.8 % (11.5-17.5); Red Cell Distribution Width-SD 45.7 fL; White Blood Count 6.9 K/mm3 (4.8-10.8)
[2024-07-25 10:46] LABS: Alanine Aminotransferase 13 U/L (12-78); Alkaline Phosphatase 86 U/L (38-126); Anion Gap 5.2 mEq/L (5-15); Aspartate Amino Transferase 22 U/L (14-36); Bilirubin,Total 0.5 mg/dl (0.2-1.3); Blood Urea Nitrogen 8 mg/dl (7-17); Calcium 9.3 mg/dl (8.4-10.2); Carbon Dioxide 36 mmol/L (22.0-30.0); Chloride 97 mmol/L (98-107); Creatinine Clearance Estimated 82 mL/min (50-200); Estimated Glomerular Filt Rate 72 ml/min (>60); GFR (African American) 87 ML/MIN (>60); Globulin 3.9 g/dL (1.3-3.2); Glucose 99 mg/dl (74-100); Potassium 4.2 mmoL/L (3.5-5.1); Sodium 134 mmol/L (136-145); Total Protein,Serum 7.9 g/dl (6.3-8.2)
[2024-07-25] MEDS: SODIUM CHLORIDE 0.9% IV (11:15)
[2024-07-25] MEDS: ATEZOLIZUMAB IV (11:15)
[2024-07-25 11:17] LABS: Thyroid Stimulating Hormone 4.12 uIU/mL (0.465-4.68)
[2024-07-25 11:20] VITALS: BP 138/71; PULSE 78; RESP 18; TEMP 36.7; O2SAT 99
[2024-07-25 11:50] VITALS: BP 134/63; PULSE 74
[2024-07-25 12:20] VITALS: BP 130/65; PULSE 73; RESP 18; TEMP 36.7; O2SAT 99
== END 2024-07-25 23:59 | disposition home or self-care (01) ==
LOC: INF 09:15
PROVIDERS: PCP Internal Medicine Adolescent Medicine; Visit Provider Internal Medicine Medical Oncology
DX: R91.8 Other nonspecific abnormal finding of lung field (principal); Z79.899 Other long term (current) drug therapy
CPT/HCPCS: 80053; 82533; 84443; 85025; 96413; J9022

== ENCOUNTER 2024-08-13 10:53 | Outpatient (CLI) | payer MEDICARE, BC, SELFPAY ==
--- OUTSIDE RECORDS SUMMARY | 2024-08-13 10:56 | XMS_ITS | Data Portability ---
Author Organization [place] - [facility] Address [address] [place] [address] Care Team Providers Care Central Station Operator Name Role Phone LALIT PAINTER Referring Provider [phone] RENETTA LAWSON Radiation Oncologist Assessment Encounter Date Assessment Date Assessment LastModified by Organization Details LastModified Time 10/03/2023 10/03/2023 Treatment summary: She was treated [...] pleasant patient. [email or web address] Not available 04/04/2024 12:32:20 07/25/2024 07/25/2024 Case was discussed with Dr. Patel who saw her this morning because of minimal changes in the recent MRI with a history of previous whole-brain radiation stable lung disease at this time there is no need to consider her for additional brain radiation 2 small sites of lesions in the cerebellum however repeat MRI be done in the future if this progressed will consider her for palliative brain radiotherapy. Patient will return to see us in 2 months for a follow-up. Interview and review of records lasted for 30 minutes. Thanks for allowing us participate in the care of this pleasant patient. [email or web address] Not available 07/25/2024 13:59:40 Plan of Treatment Reminders Order Date Submit Date Provider Last Modified By Organization Details Last Modified Time Details Appointments None recorded. Lab None recorded. Referral None recorded. Procedures None recorded. Surgeries None recorded. Imaging MRI, brain, w/wo contrast - To be scheduled on or around 05/02/20242024 025 [facility] [address], [place], [address], 10:17:19 Medication Orders None recorded. Patient TargetsNo targets recorded. Patient InstructionsNo instructions recorded. Reason for Referral None Reported. Results Created Date Observation Date Name Description Value Unit Range Abnormal Flag Note LastModifiedBy Organization Detail LastModifiedTime 01/10/20 24 12/14/2023 MRI, brain + brain stem, w/ contr ast No observ ation record ed. [email or web address] Critical Power Technician [address] [place] [address] [address], [place], [address], 01/10/2024 14:01:21 04/16/19 25 03/15/2024 MRI, brain , w/wo contr ast No observ ation record ed. [email or web address] Not Available 03/28 09:44:05 05/24/19 25 04/29/2024 MRI, brain , w/wo contr ast No observ ation record ed. [facility] Critical Power Technician [address] [place] [address] [address], [place], [address], 05/27/2024 07:48:22 07/19/19 25 07/16/2024 MRI, brain , w/wo contr ast No observ ation record ed. [address], [place], [address], 07/18/2024 11:24:43 Result Notes None recorded. Problems Name Problem SNOMED Code Status Onset Date Resolution Date Notes Provider Name and Address Organization Details Recorded Time Small cell carcinoma of lung 903658543 Active 024 CASEY Acevedo - [place] & [place] 4 09:44:19 Metastatic malignant neoplasm to brain 48972687 Active 024 CASEY Acevedo - [place] [facility] [place] 4 09:44:41 Acute mucositis 173274237 Active 024 CASEY Acevedo - [facility] & [place] 13:51:43 Problem Notes None recorded. Procedures Surgical History Date Name Laterality Status Provider Name and Address Organization Details Recorded Time 08/31/19 24 endoscopic endobronchial ultrasonography guided transbronchial needle aspiration of mediastinal lymph node completed Fatoumata PEÑA - [facility] & [place] 09/08/2023 10:42:33 08/21/19 24 craniotomy completed Fatoumata PEÑA - [facility] & [place] 09/08/2023 10:42:09 Carpal tunnel surgery completed Fatoumata Ron [facility] & [place] 09/08/2023 10:41:49 Imaging Results Imaging Date Name Status LastModified by Organiz ation Details LastModified Time 12/14/2023 MRI, brain + brain stem, w/ contrast completed [email or web address] [facility] Critical Power Technician [address], [place], [address], 01/10/2024 14:01:21 03/15/2024 MRI, brain, w/wo contrast completed Information not available 04/16/2024 09:44:05 04/29/2024 MRI, brain, w/wo contrast active [facility] Critical Power Technician [address], [place], [address], 05/27/2024 07:48:22 07/16/2024 MRI, brain, w/wo contrast completed [facility] [address], [place], [address], 07/18/2024 11:24:43 Procedure Notes None recorded. Medical Equipment None Reported. Allergies Allergen ID Allergen Name Allergen Category Reaction Reaction Severity Criticality Documentation Date Start Date Code Code System Note Provider Name and Address Organization Details Recorded Time 554044 Product containin g penicilli n (product) medicatio n Not available Not available Not available 09/08/2023 53796 8001 SNOMED CASEY Acevedo [facility] - [place] [facility] [place] 4 13:53:29 022565 Keflex medicatio n Not available Not available Not available 09/08/202357104 7 RxNorm CASEY Acevedo - [facility] - [place] [facility] [place] 4 10:54:06 Medications Name Sig Start Date Stop Date Status Note LastModified by Organization Details LastModified Time Magic Mouthwash w/ Nystatin 10 ml PO Swish and Swallow every 3 hrs PRN 07/25 completed Not Available Not Available Not Available maalox/diph enhydramine 12.5/5/ lidocaine 2% visc SWISH AND SWALLOW 10ML EVERY THREE HOURS NEEDED 07/25 completed Not Available Not Available Not Available losartan 50 mg tablet 07/25 completed Not Available Not Available Not Available levothyroxi ne 175 mcg tablet 07/25 completed Not Available Not Available Not Available atorvastati n 80 mg tablet active Not Available Not Available Not Available nystatin 100,000 unit/mL oral suspension USE 5 ML BY MOUTH 4 TIMES DAILY FOR 15 DAYS 07/25 completed Not Available Not Available Not Available potassium chloride ER 10 mEq capsule,ext ended release 07/25 completed Not Available Not Available Not Available venlafaxine ER 75 mg capsule,ext ended release 24 hr active Not Available Not Available Not Available doxycycline hyclate 100 mg capsule 07/25 completed Not Available Not Available Not Available ipratropium 0.5 mg-albutero l 3 mg [...] TABLET BY MOUTH ONCE DAILY AT BEDTIME 07/25 completed Not Available Not Available Not Available prednisone 20 mg tablet TAKE 3 TABLETS BY MOUTH ONCE DAILY FOR 2 DAYS, THEN 2 TABLETS ONCE DAILY FOR 2 DAYS, THEN 1 TABLET ONCE DAILY FOR 1 DAY 11/05 completed Not Available Not Available Not Available clonazepam 0.5 mg tablet active Not Available Not Available Not Available potassium chloride ER 10 mEq tablet,exte nded release 07/25 completed Not Available Not Available Not Available amlodipine 5 mg tablet 07/25 completed Not Available Not Available Not Available prochlorper azine maleate 10 mg tablet TAKE 1 TABLET BY MOUTH EVERY 6 HOURS NEEDED FOR NAUSEA AND VOMITING active Not Available Not Available No t Available acyclovir 400 mg tablet 07/25 completed Not Available Not Available Not Available levothyroxi ne 25 mcg tablet 07/25 completed Not Available Not Available Not Available bisoprolol fumarate 10 mg tablet 07/25 completed Not Available Not Available Not Available bisoprolol fumarate 5 mg tablet TAKE 1 TABLET BY MOUTH ONCE DAILY AT NIGHT FOR 21 DAYS 07/25 completed Not Available Not Available Not Available verapamil ER 180 mg 24 hr capsule,ext ended release active Not Available Not Available Not Available potassium chloride ER 20 mEq tablet,exte nded release(par t/cryst) 07/25 completed Not Available Not Available Not Available benzonatate 100 mg capsule active Not Available Not Available Not Available doxycycline monohydrate 100 mg capsule TAKE 1 CAPSULE BY MOUTH TWICE DAILY FOR 10 DAYS 07/25 completed Not Available Not Available Not Available dexamethaso ne 2 mg tablet TAKE 1 TABLET BY MOUTH ONCE DAILY FOR 7 DAYS 11/05 completed Not Available Not Available Not Available pantoprazol e 40 mg tablet,chun yed release active Not Available Not Available Not Available levothyroxi ne 125 mcg tablet Take 1 tablet every day by oral route. active Not Available Not Available No t Available dexamethaso ne 4 mg tablet 07/25 completed Not Available Not Available Not Available buspirone 10 mg tablet TAKE 1 TABLET BY MOUTH THREE TIMES DAILY active Not Available Not Available No t Available montelukast 10 mg tablet active Not Available Not Available Not Available levothyroxi ne 200 mcg tablet 07/25 completed Not Available Not Available Not Available hydrochloro thiazide 25 mg tablet 07/25 completed Not Available Not Available Not Available furosemide 20 mg tablet 11/05 completed Not Available Not Available Not Available methylpredn isolone 4 mg tablets in a dose pack 07/25 completed Not Available Not Available Not Available albuterol sulfate HFA 90 mcg/actuati on aerosol inhaler active Not Available Not Available Not Available losartan 50 mg-hydrochl orothiazide 12.5 mg tablet 07/25 completed Not Available Not Available Not Available ketoconazol e 2 % topical cream active Not Available Not Available Not Available losartan 100 mg tablet TAKE 1 TABLET BY MOUTH ONCE DAILY AT NIGHT FOR 21 DAYS 07/25 completed Not Available Not Available Not Available doxycycline hyclate 100 mg tablet 07/25 completed Not Available Not Available Not Available amoxicillin 875 mg-potassiu m clavulanate 125 mg tablet TAKE 1 TABLET BY MOUTH TWICE DAILY FOR 1 DAY 07/25 completed Not Available Not Available Not Available oxycodone 5 mg tablet TAKE 1 [...] TABLET BY MOUTH TWICE DAILY WITH MEALS 07/25 completed Not Available Not Available Not Available naloxone 4 mg/actuatio n nasal spray [...] Available N ot Available Vitals Date Recorded Body weight Body temperature Oxygen saturation Oxygen saturation in Arterial blood by Pulse oximetry Heart rate Respiratory rate Systolic blood pressure Diastolic blood pressure Provider Name and Address Organization Details Last Updated DateTime 140197. 68 g 97.5 [degF] 98 % 98 % 96 /min 19 /min 125 mm[Hg] 67 mm[Hg] Fatoumata PEÑA [facility] & [place] 4 13:28:04 Date Recorded Body temperature Oxygen saturation Oxygen saturation in Arterial blood by Pulse oximetry Inhaled oxygen flow rate Heart rate Respiratory rate Systolic blood pressure Diastolic blood pressure Provider Name and Address Organization Details Last Updated DateTime 4 97 [degF] 99 % 99 % 3 L/min 82 /min 20 /min 125 mm[Hg] 68 mm[Hg] Fatoumata PEÑA [facility] & [place] 4 13:52:57 Date Recorded Body weight Body temperature Oxygen saturation Oxygen saturation in Arterial blood by Pulse oximetry Heart rate Respiratory rate Systolic blood pressure Diastolic blood pressure Provider Name and Address Organization Details Last Updated DateTime 5 59280.2 2 g 97.3 [degF] 95 % 95 % 87 /min 19 /min 154 mm[Hg] 72 mm[Hg] Fatoumata PEÑA [facility] & [place] 5 12:14:43 Date Recorded Body weight Body temperature Oxygen saturation Oxygen saturation in Arterial blood by Pulse oximetry Inhaled oxygen flow rate Heart rate Respiratory rate Systolic blood pressure Diastolic blood pressure Provider Name and Address Organization Details Last Updated DateTime 5 87361.3 g 97.2 [degF] 95 % 95 % 3 L/min 84 /min 19 /min 143 mm[Hg] 69 mm[Hg] Fatoumatabeth PEÑA [facility] & [place] 5 13:51:00 Social History Question Answer Notes LastModified by Organizat ion Details LastModified Time Tobacco Smoking Status Former Smoker Fatoumata Lozada [facility] [place] [facility] & [place] 09/08/2023 10:41:23 When Did You Quit Smoking? 1-5yearssin celastcigar ette 6 Months Ago Information not available 09/08/2023 What Was The Date Of Your Most Recent Tobacco Screening? 09/08/2023 Information not available 09/08/2023 What Is Your Current Pack Years? 30ormorepac kyears 75 Pack Years Information not available 09/08/2023 At What Age Did You Start Smoking Tobacco? 12 Information not available 09/08/2023 How Much Tobacco Do You Smoke? No Information not available 09/08/2023 Has Tobacco Cessation Counseling Been Provided? No Information not available 09/08/2023 How Many Years Have You Smoked Tobacco? 50 Information not available 09/08/2023 Sex: Unknown Functional Status Question Answer Note LastModified by Organizat ion Details LastModified Time Do you or have you ever used any other forms of tobacco or nicotine? Yes Information not available 09/08/2023 Do you or have you ever used e-cigarettes or vape? Current user of electronic cigarettes Information not available 09/08/2023 Mental Status None recorded. Family History Relationship [...] SNOMED-CT Code Diagnosis ICD10 Code Diagnosis Note [id number] MD ALBERTO [address] [place] [address] 09/08/2023 09:37:05 09/08/2023 10:46:00 Small cell carcinoma of lung 795412739 C34.90 Metastatic malignant neoplasm to brain 82238954 C79.31 [id number] MD ALBERTO [address] [place] [address] 09/13/2023 13:19:24 09/13/2023 15:32:20 Metastatic malignant neoplasm to brain 95198541 C79.31 Small cell carcinoma of lung 474563982 C34.90 [id number] Renetta Lawson MD [place] [address] 8 09/19/2023 13:36:21 09/19/2023 14:37:37 Small cell carcinoma of lung 959889149 C34.90 Metastatic malignant neoplasm to brain 70281067 C79.31 [id number] Renetta Lawson MD [place] [address] 8 09/20/2023 13:28:45 09/20/2023 14:17:44 Metastatic malignant neoplasm to brain 53519619 C79.31 Small cell carcinoma of lung 077673075 C34.90 [id number] Renetta Lawson MD [place] [address] 8 09/21/2023 13:39:23 09/21/2023 14:06:20 Small cell carcinoma of lung 446112573 C34.90 Metastatic malignant neoplasm to brain 24317283 C79.31 [id number] Renetta Lawson MD [place] [address] 8 09/24/2023 10:05:25 09/24/2023 10:59:16 Metastatic malignant neoplasm to brain 52279609 C79.31 Small cell carcinoma of lung 480055152 C34.90 [id number] Renetta Lawson MD [place] [address] 8 09/25/2023 08:19:34 09/25/2023 09:39:32 Small cell carcinoma of lung 865556184 C34.90 Metastatic malignant neoplasm to brain 97007796 C79.31 [id number] Renetta Lawson MD [place] [address] 8 09/22/2023 10:50:20 09/22/2023 11:24:40 Metastatic malignant neoplasm to brain 05720703 C79.31 [id number] Renetta Lawson MD [place] [address] 8 09/26/2023 08:24:03 09/26/2023 09:27:30 Metastatic malignant neoplasm to brain 38317508 C79.31 Small cell carcinoma of lung 559682421 C34.90 [id number] Renetta Lawson MD [place] [address] 8 09/27/2023 08:12:42 09/27/2023 11:08:08 Small cell carcinoma of lung 116746944 C34.90 Metastatic malignant neoplasm to brain 51833814 C79.31 [id number] Renetta Lawson MD [place] [address] 8 10/02/2023 13:36:53 10/02/2023 14:14:11 Small cell carcinoma of lung 371018003 C34.90 Metastatic malignant neoplasm to brain 66702413 C79.31 Acute mucositis 93130311 8 K12.30 [id number] Renetta Lawson MD [place] [address] 8 10/03/2023 13:36:12 10/03/2023 15:41:36 Small cell carcinoma of lung 444380330 C34.90 Metastatic malignant neoplasm to brain 44574861 C79.31 [id number] Renetta Lawson MD [place] [address] 8 11/06/2023 13:00:38 11/06/2023 14:00:15 Small cell carcinoma of lung 781501026 C34.90 Metastatic malignant neoplasm to brain 40253496 C79.31 [id number] Renetta Lawson MD [place] [address] 8 01/10/2024 13:38:12 01/10/2024 15:03:23 Metastatic malignant neoplasm to brain 36788725 C79.31 Small cell carcinoma of lung 645759170 C34.90 [id number] [facility] [address] [place] [address] 04/04/2024 11:58:19 04/04/2024 12:41:56 Metastatic malignant neoplasm to brain 08753685 C79.31 Small cell carcinoma of lung 678440026 C34.90 [id number] [facility] [address] [place] [address] 07/25/2024 13:49:05 07/25/2024 14:07:17 Metastatic malignant neoplasm to brain 10381976 C79.31 Small cell carcinoma of lung 379720222 C34.90 Health Concerns Section Related Observation LastModified by Organization Detai ls LastModified Time None Recorded Concern Status LastModified by Organization Details LastModified Time None Recorded Advance Directives Directive None Recorded Payers Insurance Date Sequence Insurance Name Policy Number Policy Richards Covered Member ID Richards Member ID Guarantor Name 07/25/2024 1 [place] Shantal Stanford [id number] Shantal Stanford 07/25/2024 [place] Shantal Stanford [id number] Shantal Stanford 07/25/2024 2 [place] [id number] Shantal Stanford [id number] Shantal Stanford Notes Date Note Type Note [...] use oxygen 24 hours a day. Renetta Lawson MD [address] [place] [address],[address], [place], [address], [facility] & [place] 10/03/2023 14:02:36 11/06/2023 text/html Patient is here [...] or motor changes no other complaints. Renetta Lawson MD [address] [place] [address],[address], [place], [address], [facility] & [place] 11/06/2023 13:38:36 01/10/2024 text/html Patient is here [...] in the upper or lower limbs. Renetta Lawson MD [address] [place] [address] Drive,[address], [place], [address], [facility] & [place] 01/10/2024 14:10:49 04/04/2024 text/html Thanks Dr. Painter [...] no difficulty walking. No memory loss. 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 Painter recent MRI of the brain on 07/16/2024 showed a small enhancing focus in the right occipital lobe measuring 4 mm and a tiny focus of enhancement in the superior right cerebellar hemisphere which is also stable and 2 contiguous foci in the superior left cerebellar hemisphere measuring up 14 x 8 mm patient continued to use oxygen 24 hours had no cough no headache no visual disturbance no sensory or motor changes in the upper or lower limbs. Renetta Lawson MD [address], [place], [address], [facility] - [facility] & [place] 07/25/2024 13:59:51 OBGyn Episode No OBEpisode recorded.
--- OUTSIDE RECORDS SUMMARY | 2024-08-13 10:57 | XMS_ITS | Continuity of Care Document ---
Author Organization [place] - [place] - [facility] Address [address] [place] [address] Care Team Providers Care Bark Peeler Name Role Phone LALIT PAINTER Referring Provider [phone] RENETTA [place]SON Radiation Oncologist [phone] Assessment Encounter Date Assessment Date Assessment LastModified by Organization Details LastModified Time 07/25/2024 07/25/2024 Case was discussed with Dr. [...] Details Last Modified Time Details Appointments None record ed. Lab None record ed. Referral None record ed. Procedures None record ed. Surgeries None record ed. Imaging None record ed. Medication Orders None record ed. Patient TargetsNo targets recorded. Patient InstructionsNo instructions recorded. Reason for Referral None Reported. Results Created Date Observation Date Name Description Value Unit Range Abnormal Flag Note LastModifiedBy Organization Detail LastModifiedTime 07/19/1907/16/2024 MRI, brain , w/wo contr ast No observ ation record ed. [facility] [address], [place], [address], 07/18/2024 11:24:43 Result Notes None recorded. Problems Name Problem SNOMED Code Status Onset Date Resolution Date Notes Provider Name and Address Organization Details Recorded Time Small cell carcinoma of lung 944454515 Active 024 CASEY Acevedo [facility] & [place] 4 09:44:19 Metastatic malignant neoplasm to brain 38118330 Active 024 CASEY Acevedo [facility] & [place] 4 09:44:41 Acute mucositis 316886990 Active 024 CASEY Acevedo [facility] & [place] 4 13:51:43 Problem Notes None recorded. Procedures Surgical History Date Name Laterality Status Provider Name and Address Organization Details Recorded Time 08/31/19 24 endoscopic endobronchial ultrasonography guided transbronchial needle aspiration of mediastinal lymph node completed Fatoumata VÁZQUEZ [facility] & [place] 09/08/2023 10:42:33 08/21/19 24 craniotomy completed Fatoumata VÁZQUEZ [facility] & [place] 09/08/2023 10:42:09 Carpal tunnel surgery completed Fatoumata VÁZQUEZ [facility] & [place] 09/08/2023 10:41:49 Imaging Results None recorded. Procedure Notes None recorded. Medical Equipment None Reported. Allergies Allergen ID Allergen Name Allergen Category Reaction Reaction Severity Criticality Documentation Date Start Date Code Code System Note Provider Name and Address Organization Details Recorded Time 874633 Product containin g penicilli n (product) medicatio n Not available Not available Not available 09/08/2023 81867 8001 SNOMED CASEY Acevedo [facility] & [place] 4 13:53:29 816503 Keflex medicatio n Not available Not available Not available 09/08/202338286 7 RxNorm CASEY Acevedo [place] & [place] 4 10:54:06 Medications Name Sig [...] Available Not Available Not Available amoxicillin 875 mg-ok m clavulanate 125 mg tablet TAKE 1 [...] Address Organization Details Last Updated DateTime 5 78923.3 g 97.2 [degF] 95 % 95 % 3 L/min 84 /min 19 /min 143 mm[Hg] 69 mm[Hg] Fatoumata VÁZQUEZ [facility] & [place] 13:51:00 Social History Question Answer Notes LastModified by Organizat ion Details LastModified Time Tobacco Smoking Status Former [facility] [place] 09/08/2023 10:41:23 When Did You Quit Smoking? 1-5yearssin celastcizaida ette 6 Months Ago Information not available 09/08/2023 What Was The Date Of Your Most Recent Tobacco Screening? 09/08/2023 Information not available 09/08/2023 What Is Your Current Pack Years? 30ormorepaestephania miless 75 Pack Years Information not available 09/08/2023 [...] SNOMED-CT Code Diagnosis ICD10 Code Diagnosis Note [id number] MD ALBERTO [facility] [address] [place] [address] 07/25/2024 13:49:05 07/25/2024 14:07:17 Metastatic malignant neoplasm to brain 94260063 C79.31 Small cell carcinoma of lung 793369568 C34.90 Health Concerns Section Related Observation LastModified by Organization Detai ls LastModified Time None Recorded Concern Status LastModified by Organization Details LastModified Time None Recorded Payers Encounter Date Sequence Insurance Name Policy Number Policy Richards Covered Member ID Richards Member ID Guarantor Name 07/25/2024 2 [place] [id number] Shantal Stanford [id number] Shantal Stanford 07/25/2024 1 [place] Shantal Stanford [id number] Shantal Stanford Notes Date Note Type Note Provider Name and Address Organization Details Recorded Time 07/25/2024 text/html Patient is here for a [...] 3 weeks ago she was hospitalized at [facility] with pneumonia and sepsis she improved CT [...] or lower limbs. Renetta Lawson MD [address] [facility],[address], [place], [address], [facility] - [place] & [place] 07/25/2024 13:59:51 OBGyn Episode No OBEpisode recorded.
[2024-08-13 11:34] LABS: Basophils # 0.1 K/mm3 (0-0.2); Basophils % 0.6 % (0.1-2.0); Eosinophils # 0.2 Kmm3 (0.0-0.4); Eosinophils % 2.6 % (0.1-12.0); Hematocrit 31.7 % (37.0-47.0); Hemoglobin 9.9 g/dL (12.2-16.2); Immature Granulocytes # 0.02 10^3uL; Immature Granulocytes % 0.3 %; Lymphocytes % 12.9 % (10-50); Mean Corpuscular HGB Conc 31.2 g/dL (31.8-35.4); Mean Corpuscular Volume 96.1 fl (81-99); Mean Platelet Volume 8.9 fl (7.4-10.4); Monocytes # 0.5 K/mm3 (0.1-1.0); Monocytes % 5.8 % (1.7-9.3); Neutrophils # 6.2 K/mm3 (1.8-7.8); Neutrophils % 77.8 % (37.0-80.0); Nucleated Red Blood Cells # 0.02 10^3/uL; Nucleated Red Blood Cells % 0.3 %; Platelet Count 249 K/mm3 (142-424); Red Cell Distribution Width 13.3 % (11.5-17.5); Red Cell Distribution Width-SD 47.2 fL
[2024-08-13 11:37] LABS: Albumin Level 4.2 g/dl (3.5-5.0); Chloride 94 mmol/L (98-107); Sodium 135 mmol/L (136-145)
[2024-08-13 11:38] LABS: Potassium 3.3 mmoL/L (3.5-5.1)
[2024-08-13 11:40] LABS: Alanine Aminotransferase 18 U/L (12-78); Albumin/Globulin Ratio 1.1 (1.1-1.8); Alkaline Phosphatase 89 U/L (38-126); Anion Gap 11.3 mEq/L (5-15); Aspartate Amino Transferase 26 U/L (14-36); Bilirubin,Total 0.3 mg/dl (0.2-1.3); Blood Urea Nitrogen 8 mg/dl (7-17); Calcium 9.2 mg/dl (8.4-10.2); Carbon Dioxide 33 mmol/L (22.0-30.0); Estimated Glomerular Filt Rate 84 ml/min (>60); GFR (African American) 102 ML/MIN (>60); Globulin 3.9 g/dL (1.3-3.2); Glucose 107 mg/dl (74-100); Total Protein,Serum 8.1 g/dl (6.3-8.2)
[2024-08-13 12:11] LABS: Thyroid Stimulating Hormone 6.37 uIU/mL (0.465-4.68)
[2024-08-13] MEDS: ATEZOLIZUMAB IV (12:16)
[2024-08-13] MEDS: SODIUM CHLORIDE 0.9% IV (12:16)
[2024-08-13 12:20] VITALS: BP 148/68; PULSE 70; RESP 18; O2SAT 96
[2024-08-13] MEDS: SODIUM CHLORIDE 0.9% 50ML BAG 50 ML IV (12:20)
[2024-08-13 13:25] VITALS: BP 158/90; PULSE 75; RESP 19; O2SAT 96
[2024-08-14 14:47] LABS: Adrenocorticotropic Hormone 10.2 pg/mL (7.2-63.3)
== END 2024-08-13 13:25 | disposition home or self-care (01) ==
LOC: INF 10:55
PROVIDERS: PCP Internal Medicine Adolescent Medicine; Visit Provider Internal Medicine Medical Oncology
DX: R91.8 Other nonspecific abnormal finding of lung field (principal); Z79.899 Other long term (current) drug therapy
CPT/HCPCS: 80053; 82024; 82533; 84443; 85025; 96413; J9022

== ENCOUNTER 2024-09-05 11:31 | Outpatient (CLI) | payer MEDICARE, BC, SELFPAY ==
[2024-09-05 11:35] VITALS: BMI 32.1
--- NOTE | 2024-09-05 12:02 | PC.NURSE ---
Pt presents prior to md appt for iv/labs. Iv attempted x 2 sticks-1 to each ac. Iv obtained blood return, but unable to thread catheter. Blood drawn for labs as ordered per md and specimen sent to lab for analysis. Unable to obtain iv access at this time, sites secured with 2x2 gauze and coban. Pt to attend md appt and return for scheduled tx. Will reevaluate for iv access once pt returns.
[2024-09-05 12:05] LABS: Basophils % 0.4 % (0.1-2.0); Eosinophils # 0.3 Kmm3 (0.0-0.4); Eosinophils % 3.9 % (0.1-12.0); Hematocrit 32.6 % (37.0-47.0); Hemoglobin 10.4 g/dL (12.2-16.2); Immature Granulocytes # 0.02 10^3uL; Immature Granulocytes % 0.3 %; Lymphocytes # 1.2 K/mm3 (0.7-4.5); Lymphocytes % 16.1 % (10-50); Mean Corpuscular HGB Conc 31.9 g/dL (31.8-35.4); Mean Corpuscular Hemoglobin 30.1 pg (27.0-31.2); Mean Corpuscular Volume 94.2 fl (81-99); Mean Platelet Volume 8.8 fl (7.4-10.4); Monocytes # 0.6 K/mm3 (0.1-1.0); Neutrophils # 5.1 K/mm3 (1.8-7.8); Neutrophils % 71.3 % (37.0-80.0); Nucleated Red Blood Cells # 0 10^3/uL; Nucleated Red Blood Cells % 0 %; Platelet Count 220 K/mm3 (142-424); Red Blood Count 3.46 M/mm3 (4.20-5.40); Red Cell Distribution Width 13.5 % (11.5-17.5); Red Cell Distribution Width-SD 46.6 fL; White Blood Count 7.1 K/mm3 (4.8-10.8)
[2024-09-05 12:19] LABS: Alanine Aminotransferase 20 U/L (12-78); Albumin Level 4.4 g/dl (3.5-5.0); Albumin/Globulin Ratio 0.9 (1.1-1.8); Alkaline Phosphatase 77 U/L (38-126); Anion Gap 6.3 mEq/L (5-15); Aspartate Amino Transferase 32 U/L (14-36); Bilirubin,Total 0.7 mg/dl (0.2-1.3); Blood Urea Nitrogen 9 mg/dl (7-17); Calcium 9.1 mg/dl (8.4-10.2); Carbon Dioxide 37 mmol/L (22.0-30.0); Chloride 93 mmol/L (98-107); Creatinine Clearance Estimated 76 mL/min (50-200); Estimated Glomerular Filt Rate 84 ml/min (>60); GFR (African American) 102 ML/MIN (>60); Globulin 4.9 g/dL (1.3-3.2); Glucose 89 mg/dl (74-100); Potassium 4.3 mmoL/L (3.5-5.1); Sodium 132 mmol/L (136-145); Total Protein,Serum 9.3 g/dl (6.3-8.2)
[2024-09-05 12:50] LABS: Thyroid Stimulating Hormone 5.43 uIU/mL (0.465-4.68)
[2024-09-05] MEDS: SODIUM CHLORIDE 0.9% 50ML BAG 50 ML IV (13:10)
[2024-09-05] MEDS: SODIUM CHLORIDE 0.9% 10ML FLUSH SYRINGE 10 ML IV (13:10)
--- OUTSIDE RECORDS SUMMARY | 2024-09-05 13:19 | XMS_ITS | Data Portability ---
Author Organization [place] - [facility] Address [address] [place] [address] Care Team Providers Care Truck Trailer Mechanic Name Role Phone LALIT PAINTER Referring Provider RENETTA LAWSON Radiation Oncologist Assessment Encounter Date [...] be scheduled on or around 05/02/20242024 025 [facility] [address], [place], [address], 10:17:19 Medication Orders None recorded. Patient TargetsNo targets recorded. Patient InstructionsNo instructions recorded. Reason for Referral None Reported. Results Created Date Observation Date Name Description Value Unit Range Abnormal Flag Note LastModifiedBy Organization Detail LastModifiedTime 01/10/20 24 12/14/2023 MRI, brain + brain stem, w/ contr ast No observ ation record ed. [email or web address] [employer] [address] [place] [address] [address], [place], [address], 01/10/2024 14:01:21 04/16/19 25 03/15/2024 MRI, brain , w/wo contr ast No observ ation record ed. [email or web address] Not Available 03/28 09:44:05 05/24/19 25 04/29/2024 MRI, brain , w/wo contr ast No observ ation record ed. [facility] [employer]ap [employer] Architect [address] [place] [address] [address], [place], [address], 05/27/2024 07:48:22 07/19/19 25 07/16/2024 MRI, brain , w/wo contr ast No observ ation record ed. [address], [place], [address], 07/18/2024 11:24:43 Result Notes None recorded. Problems Name Problem SNOMED Code Status Onset Date Resolution Date Notes Provider Name and Address Organization Details Recorded Time Small cell carcinoma of lung 912433570 Active 024 CASEY Acevedo - [place] & [place] 4 09:44:19 Metastatic malignant neoplasm to brain 28920320 Active 024 CASE[place] Acevedo - [place] & [place] 4 09:44:41 Acute mucositis 460984339 Active 024 CASEY Acevedo [facility] & [place] 4 13:51:43 Problem Notes None recorded. Procedures Surgical History Date Name Laterality Status Provider Name and Address Organization Details Recorded Time 08/31/19 24 endoscopic endobronchial ultrasonography guided transbronchial needle aspiration of mediastinal lymph node completed Fatoumata VÁZQUEZ [facility] & [place] 09/08/2023 10:42:33 08/21/19 24 craniotomy completed Fatoumata VÁZQUEZ [facility] & [place] 09/08/2023 10:42:09 Carpal tunnel surgery completed Fatoumata VÁZQUEZ [facility] & [place] 09/08/2023 10:41:49 Imaging Results None recorded. Procedure Notes None recorded. Medical Equipment None Reported. Allergies Allergen ID Allergen Name Allergen Category Reaction Reaction Severity Criticality Documentation Date Start Date Code Code System Note Provider Name and Address Organization Details Recorded Time 004691 Product containin g penicilli n (product) medicatio n Not available Not available Not available 09/08/2023 59092 8001 SNOMED CASEY Acevedo [facility] & [place] 4 13:53:29 155149 Keflex medicatio n Not available Not available Not available 09/08/2023 15234 7 RxNorm CASEY Acevedo [facility] & [place] 4 10:54:06 Medications Name Sig Start Date Stop Date Status Note LastModified by Organization Details LastModified Time maalox/diph enhydramine 12.5/5/ lidocaine 2% visc SWISH AND SWALLOW 10ML EVERY THREE HOURS NEEDED 07/25 completed Not Available Not Available Not Available Magic Mouthwash w/ Nystatin 10 ml PO [...] Address Organization Details Last Updated DateTime 5 25382.2 2 g 97.3 [degF] 95 % 95 % 87 /min 19 /min 154 mm[Hg] 72 mm[Hg] Fatoumata PEÑA [facility] 5 12:14:43 Date Recorded Body weight Body temperature Oxygen saturation Oxygen saturation in Arterial blood by Pulse oximetry Inhaled oxygen flow rate Heart rate Respiratory rate Systolic blood pressure Diastolic blood pressure Provider Name and Address Organization Details Last Updated DateTime 5 29681.3 g 97.2 [degF] 95 % 95 % 3 L/min 84 /min 19 /min 143 mm[Hg] 69 mm[Hg] Fatoumata PEÑA [facility] 5 13:51:00 Date Recorded Body weight Body temperature Oxygen saturation Oxygen saturation in Arterial blood by Pulse oximetry Heart rate Respiratory rate Systolic blood pressure Diastolic blood pressure Provider Name and Address Organization Details Last Updated DateTime 4 759057. 68 g 97.5 [degF] 98 % 98 % 96 /min 19 /min 125 mm[Hg] 67 mm[Hg] Fatoumata PEÑA [facility] & [place] 4 13:28:04 Date Recorded Body temperature Oxygen saturation Oxygen saturation in Arterial blood by Pulse oximetry Inhaled oxygen flow rate Heart rate Respiratory rate Systolic blood pressure Diastolic blood pressure Provider Name and Address Organization Details Last Updated DateTime 4 97 [degF] 99 % 99 % 3 L/min 82 /min 20 /min 125 mm[Hg] 68 mm[Hg] Fatoumata PEÑA [facility] & [place] 4 13:52:57 Social History Question Answer Notes LastModified by Organizat ion Details LastModified Time Tobacco Smoking Status Former Smoker Fatoumata Lozada [facility] & [place] 09/08/2023 10:41:23 When Did You Quit Smoking? [...] SNOMED-CT Code Diagnosis ICD10 Code Diagnosis Note [id number] [facility] [place] [address] 8 09/08/2023 09:37:05 09/08/2023 10:46:00 Small cell carcinoma of lung 745170383 C34.90 Metastatic malignant neoplasm to brain 88628044 C79.31 [id number] Renetta Lawson MD [place] [address] 8 09/13/2023 13:19:24 09/13/2023 15:32:20 Metastatic malignant neoplasm to brain 54592367 C79.31 Small cell carcinoma of lung 564887744 C34.90 [id number] Renetta Lawson MD [place] [address] 8 09/19/2023 13:36:21 09/19/2023 14:37:37 Small cell carcinoma of lung 459579483 C34.90 Metastatic malignant neoplasm to brain 20209573 C79.31 [id number] [facility] [place] [address] 8 09/20/2023 13:28:45 09/20/2023 14:17:44 Metastatic malignant neoplasm to brain 98445785 C79.31 Small cell carcinoma of lung 628534725 C34.90 [id number] Renetta Lawson MD [place] [address] 8 09/21/2023 13:39:23 09/21/2023 14:06:20 Small cell carcinoma of lung 647512835 C34.90 Metastatic malignant neoplasm to brain 76342064 C79.31 [id number] Renetta Lawson MD [place] [address] 8 09/24/2023 10:05:25 09/24/2023 10:59:16 Metastatic malignant neoplasm to brain 24348294 C79.31 Small cell carcinoma of lung 622588838 C34.90 [id number] Renetta Lawson MD [place] [address] 8 09/25/2023 08:19:34 09/25/2023 09:39:32 Small cell carcinoma of lung 933745630 C34.90 Metastatic malignant neoplasm to brain 07862400 C79.31 [id number] Renetta Lawson MD [place] [address] 8 09/22/2023 10:50:20 09/22/2023 11:24:40 Metastatic malignant neoplasm to brain 64083046 C79.31 [id number] Renetta Lawson MD [place] [address] 8 09/26/2023 08:24:03 09/26/2023 09:27:30 Metastatic malignant neoplasm to brain 80628086 C79.31 Small cell carcinoma of lung 772132116 C34.90 [id number] Renetta Lawson MD [place] [address] 8 09/27/2023 08:12:42 09/27/2023 11:08:08 Small cell carcinoma of lung 308108408 C34.90 Metastatic malignant neoplasm to brain 88324127 C79.31 [id number] Renetta Lawson MD [place] [address] 8 10/02/2023 13:36:53 10/02/2023 14:14:11 Small cell carcinoma of lung 974547101 C34.90 Metastatic malignant neoplasm to brain 88570846 C79.31 Acute mucositis 72919622 8 K12.30 [id number] Renetta Lawson MD [place] [address] 8 10/03/2023 13:36:12 10/03/2023 15:41:36 Small cell carcinoma of lung 234420170 C34.90 Metastatic malignant neoplasm to brain 85088010 C79.31 [id number] Renetta Lawson MD [place] [address] 8 11/06/2023 13:00:38 11/06/2023 14:00:15 Small cell carcinoma of lung 577226640 C34.90 Metastatic malignant neoplasm to brain 70692655 C79.31 [id number] Renetta Lawson MD [place] [address] 8 01/10/2024 13:38:12 01/10/2024 15:03:23 Metastatic malignant neoplasm to brain 30717065 C79.31 Small cell carcinoma of lung 306170917 C34.90 [id number] Renetta Lawson MD [place] [address] 8 04/04/2024 11:58:19 04/04/2024 12:41:56 Metastatic malignant neoplasm to brain 02384806 C79.31 Small cell carcinoma of lung 940203053 C34.90 [id number] Renetta Lawson MD [place] [address] 8 07/25/2024 13:49:05 07/25/2024 14:07:17 Metastatic malignant neoplasm to brain 30179072 C79.31 Small cell carcinoma of lung 383356369 C34.90 Health Concerns Section Related Observation LastModified by Organization Detai ls LastModified Time None Recorded Concern Status LastModified by Organization Details LastModified Time None Recorded Advance Directives Directive None Recorded Payers Insurance Date Sequence Insurance Name Policy Number Policy Richards Covered Member ID Richards Member ID Guarantor Name 07/25/2024 1 [place] Shantal Stanford [id number] Shantalarvin Stanford 07/25/2024 [place] - [place] Shantal Stanford [id number] Shantal Abdoulaye 07/25/2024 2 [place] [id number] Shantal Stanford [id number] Shantal Abdoulaye Notes Date Note Type Note Provider Name [...] 24 hours a day. Renetta Lawson MD [address] [place] [address],[address], [place], [address], [facility] 10/03/2023 14:02:36 11/06/2023 text/html Patient is here [...] changes no other complaints. Renetta Lawson MD [address] [place] [address],[address], [place], [address], [facility] & [place] 11/06/2023 13:38:36 01/10/2024 text/html Patient is [...] upper or lower limbs. Renetta Lawson MD [facility] [employer] [facility],[address], [place], [address], [facility] 01/10/2024 14:10:49 04/04/2024 text/html Thanks Dr. Painter [...] walking. No memory loss. Renetta Lawson MD [address] [facility],[address], [place], [address], [place] [facility] & [place] 04/04/2024 12:32:39 07/25/2024 text/html Patient is here [...] 3 weeks ago she was hospitalized at [facility] with pneumonia and sepsis she [...] upper or lower limbs. Renetta Lawson MD [address] [place] [address],[address], [place], [address], [place] [facility] & [place] 07/25/2024 13:59:51 OBGyn Episode No OBEpisode recorded.
--- OUTSIDE RECORDS SUMMARY | 2024-09-05 13:19 | XMS_ITS | Continuity of Care Document ---
Author Organization [place] - [place] [facility] Address [address] [place] [address] Care Team Providers Care Turf Farmer Name Role Phone LALIT PAINTER Referring Provider RENETTA LAWSON Radiation Oncologist Assessment Encounter Date Assessment Date Assessment LastModified by Organization Details LastModified Time 07/25/2024 07/25/2024 Case was discussed with Dr. Paetl who saw her this morning because of [...] No observ ation record ed. [facility] [address], [place], [address], 07/18/2024 11:24:43 Result Notes None recorded. Problems Name Problem SNOMED Code Status Onset Date Resolution Date Notes Provider Name and Address Organization Details Recorded Time Small cell carcinoma of lung 197071257 Active 024 [place] Acevedo [facility] & [place] 4 09:44:19 Metastatic malignant neoplasm to brain 81758539 Active 024 CASEY Acevedo [facility] & [place] 4 09:44:41 Acute mucositis 739271135 Active 024 CASEY Acevedo [facility] & [place] 4 13:51:43 Problem Notes None recorded. Procedures Surgical History Date Name Laterality Status Provider Name and Address Organization Details Recorded Time 08/31/19 24 endoscopic endobronchial ultrasonography guided transbronchial needle aspiration of mediastinal lymph node completed Fatoumata VÁZQUEZ [facility] & [place] 09/08/2023 10:42:33 08/21/19 24 craniotomy completed Fatoumata VÁZQUEZ [facility] & [place] 09/08/2023 10:42:09 Carpal tunnel surgery completed Fatoumata VÁZQUEZ [facility] & [place] 09/08/2023 10:41:49 Imaging Results None recorded. Procedure Notes None recorded. Medical Equipment None Reported. Allergies Allergen ID Allergen Name Allergen Category Reaction Reaction Severity Criticality Documentation Date Start Date Code Code System Note Provider Name and Address Organization Details Recorded Time 637449 Product containin g penicilli n (product) medicatio n Not available Not available Not available 09/08/2023 96777 8001 SNOMED CASEY Acevedo [facility] & [place] 4 13:53:29 008551 Keflex medicatio n Not available Not available Not available 09/08/202371540 7 RxNorm CASEY Acevedo [place] & [place] 4 10:54:06 Medications Name Sig Start Date [...] Address Organization Details Last Updated DateTime 5 49632.3 g 97.2 [degF] 95 % 95 % 3 L/min 84 /min 19 /min 143 mm[Hg] 69 mm[Hg] Fatoumata VÁZQUEZ [facility] & [place] 13:51:00 Social History Question Answer Notes LastModified by Organizat ion Details LastModified Time Tobacco Smoking Status Former Smoker [facility] & [place] 09/08/2023 10:41:23 When Did You Quit Smoking? [...] SNOMED-CT Code Diagnosis ICD10 Code Diagnosis Note [id number] MD [facility] [address] [place] [address] 07/25/2024 13:49:05 07/25/2024 14:07:17 Metastatic malignant neoplasm to brain 03671745 C79.31 Small cell carcinoma of lung 187209046 C34.90 Health Concerns Section Related Observation LastModified by Organization Detai ls LastModified Time None Recorded Concern Status LastModified by Organization Details LastModified Time None Recorded Payers Encounter Date Sequence Insurance Name Policy Number Policy Richards Covered Member ID Richards Member ID Guarantor Name 07/25/2024 2 [place] [id number] Shantal Rebekah Stanford [id number] Shantal Stanford 07/25/2024 1 [place] Shantal Stanford [id number] Shantal Stanford Notes Date Note Type [...] 3 weeks ago she was hospitalized at [facility] with pneumonia and sepsis she [...] lower limbs. Renetta Lawson MD [address] [facility],[address], [place], [address], [place] & [place] 07/25/2024 13:59:51 OBGyn Episode No OBEpisode recorded.
[2024-09-05 13:28] VITALS: BP 143/75; PULSE 87; RESP 22; TEMP 36.7; O2SAT 97
[2024-09-05] MEDS: ATEZOLIZUMAB IV (13:28)
[2024-09-05] MEDS: SODIUM CHLORIDE 0.9% IV (13:28)
[2024-09-05 13:58] VITALS: BP 140/76; PULSE 80; RESP 22; O2SAT 97
[2024-09-05 14:45] VITALS: BP 143/80; PULSE 77; RESP 20; O2SAT 96
== END 2024-09-05 14:45 | disposition home or self-care (01) ==
LOC: INF 11:33
PROVIDERS: PCP Internal Medicine Adolescent Medicine; Visit Provider Internal Medicine Medical Oncology
DX: C34.90 Malignant neoplasm of unspecified part of unspecified bronchus or lung (principal); R91.8 Other nonspecific abnormal finding of lung field; Z79.899 Other long term (current) drug therapy
CPT/HCPCS: 80053; 82533; 84443; 85025; 96413; J9022

== ENCOUNTER 2024-09-26 09:40 | Outpatient (CLI) | payer MEDICARE, BC, SELFPAY ==
--- OUTSIDE RECORDS SUMMARY | 2024-06-29 17:30 | XMS_ITS ---
Author Organization [facility] Address [address] [place] [address] Care Team Providers Care [employer] Principal Name Role Phone Mango Albert Primary Care Provider Migration, Provider Unavailable Unavailable Allergies Allergen (clinical drug ingredient) Drug/Non Drug Allergy documented on EMR Reaction Allergy Type Onset Date Status levetiracetam Keppra Unknown Drug Allergy Act farideh Penicillin Unknown Drug Allergy Active REAS[facility] FOR VISIT [facility] Encounter Medications Medication SIG (Take, Route, Frequency, Duration) Notes Start Date End Date Status Vitamin D3 25 MCG 1 tab(s) orally once a day Active Vitamin B1 50 MG 1 TAB(S) ORALLY ONCE A DAY *Please review and pick correct strength-formulat ion from [employer] options. If intended option is not shown, [...] MOUTH INHALED EVERY 2 HOURS DIRECTED . AUTOMOTIVE MANUFACTURER RECOMMENDS NOT TO EXCEED 12 INHALATIONS A [...] a day; Duration: 90 days Active Nystatin 604726 UNIT/ML 5 ML orally 4 times a day; Duration: 15 days swish and swallow 09/22/2023 Active Nystatin 947690 UNIT/GM 1 denise applied topically 2 times a day 09/14/2023 Active Protonix 40 MG TAKE 1 TABLET BY MOUTH DAILY orally once a day; Duration: 90 days Active Atorvastatin Calcium 80 MG 1 tab(s) orally once a day; Duration: 90 Active Euthyrox 200 MCG (0.2 MG) 1 TAB(S) ORALLY ONCE A DAY; Duration: 90 DAYS *Please review and pick correct strength-formulat ion from [employer] options. If intended option is not shown, discontinue and re-order from Quick Search* Active Synthroid 25 MCG 1 tab(s) orally once a day; Duration: 90 days Active Trelegy Ellipta 200 MCG-62.5 MCG-25 MCG/INH 1 PUFF(S) INHALED ONCE A DAY; Duration: 90 DAYS *Please review and pick correct strength-formulat ion from [employer] options. If intended option is not shown, [...] Active Encounters Encounter Location Date Provider Diagnosis [facility] [address] [facility] [address] [place] [address] 06/29/2024 Provider Migration Depression with anxiety F41.8 [...] MOUTH INHALED EVERY 2 HOURS DIRECTED . AUTOMOTIVE MANUFACTURER RECOMMENDS NOT TO EXCEED 12 INHALATIONS A [...] once a day; Duration: 90 days Nystatin 438875 UNIT/ML 5 ML orally 4 times a [...] Duration: 90 days 12/25/2023 Progress Notes * Sahntal LEON LDOB:1960 (64 yo F)Acc No.[id number]:06/29/2024 Patient: Shantal POTTER Provider: Cody Oneil :1960 A ge:63 Y S ex:Female Date:06/29/2024 Address:[address] [place], [place] [id number] Pcp:Mango Albert Subjective: * Chief Complaints: * 1 . [facility] En[facility]. * Medical History: * Medications: [...] *Please review and pick correct strength-formulation from [facility] options. If intended option is not shown, [...] *Please review and pick correct strength-formulation from [employer] options. If intended option is not shown, discontinue and re-order from Quick Search*, Taking Famotidine 40 MG Tablet 1 tab(s) orally once a day (at bedtime) , Taking Trelegy Ellipta 200 MCG-62.5 MCG-25 MCG/INH POWDER 1 PUFF(S) INHALED ONCE A DAY , Notes to Pharmacist: *Please review and pick correct [facility]ulation from [facility] options. If intended option is not shown, discontinue and re-order from Quick Search*, Taking Nystatin 710844 UNIT/GM Ointment 1 denise applied topically 2 [...] 3. S ore throat Start Nystatin Suspension, 128715 UNIT/ML, 5 ML, orally, 4 times a [...] MOUTH INHALED EVERY 2 HOURS DIRECTED . AUTOMOTIVE MANUFACTURER RECOMMENDS NOT TO EXCEED 12 INHALATIONS A [...] Electronic signature of Prov ider Migration on 09/26/2024 at 09:47 AM EDT Sign off status: Pending * Provider: Cody albright Migration Date: 0 06/29/2024 Generated for Printi ng/Corinna/Melitting on: 0 09/26/2024 09:47 AM EDT
--- OUTSIDE RECORDS SUMMARY | 2024-09-26 09:47 | XMS_ITS ---
Author Organization Healthcare Address [address] [place] [address] Care Team Providers Care Intake Rn Name Role Phone Mango Albert MD Primary Care Provider [phone] Active Problems Problem Noted Date Diagnosed Date Small cell lung cancer 09/02/2023 Acute cough 08/28/2023 Hemoptysis 08/20/2023 Class III obesity with body mass index (BMI) of 40.0 or higher 08/20/2023 Neoplasm, metastatic 08/20/2023 Current Treatment and Therapy Plans No current plan information found. Past Treatment and Therapy Plans Oncology Treatment Plan Name Start Date Discontinue Date Treatment Medications Discontinue Reason Plan Provider Cycles CARBOplatin / Etoposide Daily x 3 / Atezolizumab Every 21 Days 09/03/2023 12/05/2023 atezolizumab (Tecentriq)CARB Oplatin (Paraplatin)CAR BOplatin (Paraplatin) IVPB (by AUC: GOG-COCKCROFT GAULT)Etoposide (Toposar)etopos rickey (Vepesid) IVPB Other (See Comments) Rachael Everett MD 1 of 4 cycles started
--- OUTSIDE RECORDS SUMMARY | 2024-09-26 09:48 | XMS_ITS | Clinical Summary ---
Author Organization [facility] Address [address] [place] [address] Care Team Providers Care Component Assembler Name Role Phone Mango Albert MD Primary Care Provider [phone] Allergies Active Allergy Reactions Criticality Noted Date Comments Cephalexin Nausea Medium 08/20/2023 Penicillins Nausea Medium 08/20/2023 Medications acyclovir (Zovirax) 400 MG tablet Take 1 tablet (400 mg) by mouth every night. 4 Active albuterol 108 (90 Base) MCG/ACT inhaler Inhale 2 puffs every 4 (four) hours if needed for wheezing or shortness of breath. 4 Active amLODIPine (Norvasc) 5 MG tablet Take 1 tablet (5 mg) by mouth every night. 4 Active atorvastatin (Lipitor) 80 MG tablet Take 1 tablet (80 mg) by mouth every night. 4 Active clonazePAM (KlonoPIN) 0.5 MG tablet Take 1 tablet (0.5 mg) by mouth 2 (two) times a day. 4 Active Trelegy Ellipta 200-62.5-25 MCG/ACT aerosol powder Inhale 1 puff 1 (one) time each day in the morning. 4 Active ipratropium-al buterol (Duo-Neb) 0.5-2.5 mg/3 mL nebulizer solution Take 3 mL by nebulization every 6 (six) hours if needed for wheezing or shortness of breath. 4 Active levothyroxine (Synthroid, Levoxyl) 200 MCG tablet Take 1 tablet (200 mcg) by mouth 1 (one) time each day before breakfast. Combine with 1 tablet of levothyroxine 25mcg for a total of 225mcg every morning. 4 Active levothyroxine (Synthroid, Levoxyl) 25 MCG tablet Take 1 tablet (25 mcg) by mouth 1 (one) time each day before breakfast. Combine with 1 tablet of levothyroxine 200mcg for a total of 225mcg every morning. 4 Active venlafaxine XR (Effexor-XR) 75 MG 24 hr capsule Take 1 capsule (75 mg) by mouth every night. 4 Active pantoprazole (Protonix) 40 MG EC tablet Take 1 tablet (40 mg) by mouth every night. 4 Active montelukast (Singulair) 10 MG tablet Take 1 tablet (10 mg) by mouth every night. 4 Active Multiple Vitamins-Denham als (multivitamin with minerals) tablet Take 1 tablet by mouth 1 (one) time each day. Active Cholecalcifero l (D3 PO) Take 1 capsule by mouth 1 (one) time each day. Active Thiamine HCl (B-1 PO) Take 1 tablet by mouth 1 (one) time each day. Active Cyanocobalamin (B-12 PO) Take 1 tablet by mouth 1 (one) time each day. Active cetirizine (ZyrTEC) 10 MG tablet Take 1 tablet (10 mg) by mouth every night. Active fluticasone (Flonase) 50 MCG/ACT nasal spray Administer 2 sprays into each nostril every night. Shake gently. Before first use, prime pump. After use, clean tip and replace cap. Active busPIRone (Buspar) 10 MG tablet Take 1 tablet (10 mg) by mouth 2 (two) times a day. 4 Active losartan (Cozaar) 100 MG tablet Take 1 tablet (100 mg) by mouth every night for 21 days. 21 tablet 4 Active bisoprolol (Zebeta) 5 MG tablet Take 1 tablet (5 mg) by mouth every night for 21 days. 21 tablet 4 Active dexamethasone (Decadron) 2 MG tablet Take 1 tablet (2 mg) by mouth 1 (one) time each day for 7 days. 7 tablet 4 Active naloxone (Narcan) 4 mg/0.1 mL nasal spray 1. Give 1 spray in nostril for no/slow breathing or cannot wake after opioid use 2. Call 911 3. Repeat in other nostril if symptoms continue 1 each 4 Active Active Problems Problem Noted Date Diagnosed Date Small cell lung cancer 09/02/2023 Acute cough 08/28/2023 Hemoptysis 08/20/2023 Class III obesity with body mass index (BMI) of 40.0 or higher 08/20/2023 Neoplasm, metastatic 08/20/2023 Immunizations Immunization Administration Dates Next Due Influenza, injectable, quadrivalent, preservativ e free 01/12/2023,12/20/2018 Influenza, recombinant, quad rivalent, injectable, preservative free 02/26/2021,11/26/2019 Erasto COVID-19 Vaccine (Blue Cap) 18+ 11/27/19 21 Pneumococcal Conjugate PCV 13 04/10/2017 Social History Tobacco Use Types Packs/Day Years Used Date Smoking Tobacco: Former Cigarettes Smokeless Tobacco: Never Tobacco Cessation:Counseling Given: Not Answered Alcohol Use Standard Drinks/Week Comments Never 0 (1 standard drink = 0.6 oz pur e alcohol) Humiliation, Afraid, Rape, and Kick questionnair e Answer Date Recorded Within the last year, have y ou been afraid of your partner or ex-partner? No 08/27/2023 Within the last year, have y ou been humiliated or emotionally abused in other ways by your partner or ex-partner? No Within the last year, have y ou been kicked, hit, slapped, or otherwise physically hurt by your partner or ex-partner? No 08/27/2023 Within the last year, have y ou been raped or forced to have any kind of sexual activity by your partner or ex-partner? No 08/27/2023 Hunger Vital Sign Answer Date Recorded Within the past 12 months, y ou worried that your food would run out before you got the money to buy more. Never true 08/27/19 24 Within the past 12 months, t he food you bought just didn't last and you didn't have money to get more. Never true 08/27/2023 PRAPARE - Transportation Answer Date Re corded In the past 12 months, has l ack of transportation kept you from medical appointments or from getting medications? No 04/2023 In the past 12 months, has l ack of transportation kept you from meetings, work, or from getting things needed for daily living? No 08/27/2023 Housing Stability Vital Sign Answer Cristian e Recorded In the last 12 months, was t here a time when you were not able to pay the mortgage or rent on time? No 08/27/2023 [address] of Places Lived in the Last Year Not on f ile 08/27/2023 In the last 12 months, was t here a time when you did not have a steady place to sleep or slept in a jail (including now)? No 08/27/2023 Utilities Answer Date Recorded In the past 12 months has th e electric, gas, oil, or water company threatened to shut off services in your home? No 08/27/2023 Comments No Sex and Gender Information Value Date Recorded Sex Assigned at Female 08/21/2023 12:54 AM EDT Legal Sex Female 7:30 PM EDT Gender Identity Female 08/21/2023 12:54 AM EDT Sexual Orientation Not on file Last Filed Vital Signs Vital Sign Reading Time Taken Comments Blood Pressure 137/78 09/05/2023 2:00 PM EDT Pulse 85 09/05/2023 2:00 PM EDT Temperature 36.4 C (97.5 F) 09/05/2023 2:00 PM EDT Respiratory Rate 18 09/05/2023 11:13 AM EDT Oxygen Saturation 95% 09/05/2023 2:00 PM EDT Inhaled Oxygen Concentration - - Weight 114 kg (251 lb 8.7 oz) 08/31/2023 5:17 PM EDT Height 165.1 cm (5' 5 ) 08/21/2023 7:45 AM EDT Body Mass Index 41.86 08/21/2023 7:45 AM EDT Plan of Treatment Health Maintenance Due Date Last Done Comments [facility]-Bone Density Scan 1959 [facility]-Depression Screening 1959 [facility]-Medicare Annual Wellness (AWV) 1960 [facility]-/Child/Adol SDOH Screenings 1960 [facility]- SDOH Screenings 07/31/1977 [facility]-Adult SDOH Screenings 07/31/1977 [facility]-DTaP,Tdap,and Td Vaccines (1 - Tdap) 07/31/1978 [facility]-Zoster Vaccines (1 of 2) 07/31/1978 [facility]-Pap Smear 07/31/1980 [facility]-Cervical Cancer Screening 07/31/1989 [facility]-HPV/Cotest 07/31/1989 CT Colonography 07/31/2004 Colonoscopy 07/31/2004 FIT-DNA 07/31/2004 FIT 07/31/2004 FOBT 07/31/2004 Sigmoidoscopy 07/31/2004 [facility]-Colorectal Cancer Screening 07/31/2004 [facility]-Breast Cancer Screening 07/31/2009 [facility]-Pneumococcal Vaccine: 50+ Years (2 of 2 - PPSV23) 06/05/2017 04/10/2017 [facility]-RSV Vaccine: 60+ Years or (1 - Risk 60-74 years 1-dose series) 2019 [id number]-58 Vaccine (2 - Erasto risk series) 12/24/2020 11/26/2020 [facility]-Influenza Vaccine (#1) 11/25/202401/12, 02/26/2021, 11/26/2019, Additional history exists [facility]-Hepatitis C Screening Completed 08/20/2023 [facility]-Obesity Intervention Completed 08/20/2023 HPV Vaccines Aged Out No longer eligi ble based on patient's age to complete this topic [facility]-HIB Vaccines Aged Out No longer e ligible based on patient's age to complete this topic [facility]-Hepatitis A Vaccines Aged Out No longer eligible based on patient's age to complete this topic [facility]-IPV Vaccines Aged Out No longer e ligible based on patient's age to complete this topic [facility]-Rotavirus Vaccines Aged Out No lo nger eligible based on patient's age to complete this topic Medical Devices Implanted Type Area Certified Phlebotomist Device Identifier Shelf Expiration Date Model / Serial / Lot Graft Dura Repair 2x2 Synthecel - [id number] Implanted:Qty: 1 on 08/23/2023 by Nahum Peterson MD at [facility] Left: Brain [employer] [id number] 10/24/2025 [id number] / / [id number] Cover, Neuro Ketan Lp 17mm - [id number] Implanted:Qty: 1 on 08/23/2023 by Nahum Peterson MD at [facility]-[id number] / / Plate, 2 Hole Low Profile - [id number] Implanted:Qty: 1 on 08/23/2023 by Nahum Peterson MD at [facility]-[id number] / / Screw Ti Matrixneuro Selfdrill 4mm - [id number] Implanted:Qty: 1 on 08/23/2023 by Nahum Peterson MD at [facility]247954 [id number] .[id number] / / Procedures Procedure Name Priority Date/Time Associated Diagnosis Comments HEPATITIS C ANTIBODY - ED W/REFLEX TO HCV QUANT PCR STAT 08/20/2023 6:36 AM EDT from Last 3 Months or Most Recently Relevant to Health Maintenance Results * Hepatitis C Antibody - ED (08/20/2023 6:36 AM EDT) Hepatitis C Antibody Negative Negative 08/20/2023 7:37 AM EDT [facility] Blood Venous blood specimen / Unknown Venipuncture / Unknown 08/20/2023 6:36 AM EDT 08/20/2023 6:58 AM EDT Neftaly Botello MD LAB BLOOD ORDERABLES Final Re sult [facility] [address] [place] [address] from Last 3 Months or Most Recently Relevant to Health Maintenance Insurance MEDICARE ANTHEM Advance Directives * Full Code (Latest Code Status on File) Date Activated Date Inactivated Comments 08/20/2023 1:42 PM 09/05/2023 7:24 PM Question Answer Comments Patient has decision-making capacity? Yes Care Teams Component Assembler Relationship Specialty Start Date End Date Mango Albert MD [address] [place] [address] PCP - General Internal Medicine 08/20/23
--- OUTSIDE RECORDS SUMMARY | 2024-09-26 09:48 | XMS_ITS | Patient Health Record ---
Author Organization [facility] Address [address] [facility] [address] [facility] [address] [place] [address] Care Team Providers Care Breaster Name Role Phone Mango Albert Primary Care Provider [phone] Aubrie Garza Unavailable [phone] Migration, Provider Unavailable Unavailable Allergies Allergen (clinical drug ingredient) Drug/Non Drug Allergy documented on EMR Reaction Allergy Type Onset Date Status levetiracetam Keppra Unknown Drug Allergy Act farideh Penicillin Unknown Drug Allergy Active Reason For Referral No Information Medications Medication SIG (Take, Route, Frequency, Duration) Notes Start Date End Date Status Trelegy Ellipta 200-62.5-25 MCG/ACT USE 1 INHALATION BY MOUTH ONCE DAILY; Duration: 90 Active Euthyrox 125 MCG 1 TAB(S) ORALLY ONCE A DAY; Duration: 90 days *Please review and pick correct strength-formulatio n from [facility] [employer] options. If intended option is not shown, discontinue and re-order from Quick Search* Active Venlafaxine HCl ER 75 MG TAKE 1 CAPSULE BY MOUTH ONCE DAILY; Duration: 90 Active clonazePAM 0.5 MG 1 tab(s) orally 2 times a day; Duration: 90 days 12/25/2023 Active Ipratropium-Albutero l 0.5-2.5 (3) MG/3ML 3 mL by nebulizer 4 times a day; Duration: 90 days Active Atorvastatin Calcium 80 MG 1 tab(s) orally once a day; Duration: 90 Active Pantoprazole Sodium 40 MG TAKE 1 TABLET BY MOUTH ONCE DAILY; Duration: 90 Active oxyCODONE HCl 5 MG 1 tab(s) orally every 6 hours prn; Duration: 30 days Metastatic lung cancer pain 07/22/2024 Active busPIRone HCl 10 MG 1 tab(s) orally 3 times a day; Duration: 90 days Active Potassium 99 MG 1 tablet Orally Once a day Active Montelukast Sodium 10 MG TAKE 1 TABLET BY MOUTH ONCE DAILY; Duration: 90 Active Atezolizumab 840 MG/14ML as directed Intravenous Active Albuterol Sulfate HFA 108 (90 Base) MCG/ACT 1 puff as needed Inhalation every 4 hrs; Duration: 30 days Active Immunizations Vaccine Route Administration Date Status Comme [facility] Prevnar PCV-13 (Pneumococcal conjugate 13) IM Intramuscular 04/10/2017 Administered Pneumovax 23 IM Intramuscular 12/22/2015 Administered Influenza (Fluzone)--Medicare only IM Intramuscular 12/22/2015 Administered FLUZONE 6MO - OLDER IM Intramuscular 12/20/2018 Administer ed Flublok IM Intramuscular 11/26/2019 Administered Flublok IM Intramuscular 02/26/2021 Administered Social History Tobacco Use: Social History Observation Description Date Details (start date - stop date) Former Smoker NA - NA Smoking: Question Answer Notes Are you a: former smoker How long has it been since you last smoked? < 1 month Section Notes: Lives with a room mate. Lives with a room mate. Lives with a room mate. Lives with a room mate. Lives with a room mate. Lives with a room mate. Lives with a room mate. Lives with a room mate. Lives with a room mate. Lives with a room mate. Lives with a room mate. Lives with a room mate. Lives with a room mate. Lives with a room mate. Lives with a room mate. Lives with a room mate. Lives with a room mate. Lives with a room mate. Lives with a room mate. Lives with a room mate. Lives with a room mate. Lives with a room mate. Lives with a room mate. Lives with a room mate. Lives with a room mate. Lives with a room mate. Problems Problem Type SNOMED Code ICD Code Onset Dates Problem Status W/U Status Risk Notes Problem Type 2 diabetes mellitus with other specified complication (E11.69) Active confirmed Problem Mixed hyperlipidemia (294303039) Mixed hyperlipidemia (E78.2) Active confirmed Problem Hypomagnesemia (371461548) Hypomagnesemia (E83.42) Active confirmed Problem Obstructive sleep apnea syndrome (disorder) (62003790) Obstructive sleep apnea (adult) (pediatric) (G47.33) Active confirmed Problem Essential hypertension (83694434) Essential (primary) hypertension (I10) Active confirmed Problem Mucopurulent chronic bronchitis (75433800) Mucopurulent chronic bronchitis (J41.1) Active confirmed Problem Gwbni-te-qfgypku hypoxemic respiratory failure (22753584387411309) Acute and chronic respiratory failure with hypoxia (J96.21) Active confirmed Problem Nicotine dependence (13458425) Personal history of nicotine dependence (Z87.891) Active confirmed Problem Mixed anxiety and depressive disorder (307703739) Depression with anxiety (F41.8) Active confirmed Problem Gastroesophageal reflux disease (982692254) GERD without esophagitis (K21.9) Active confirmed Problem Tobacco abuse (2013442106) Tobacco abuse (Z72.0) Active confirmed Problem Acute exacerbation o f chronic obstructive airways disease (602337744) COPD exacerbation (J44.1) Active confirmed Problem Obese class II (579839130765577) BMI 39.0-39.9,adult (Z68.39) Active confirmed Problem Gastroesophageal reflux disease with esophagitis (disorder) (297798269) GERD with esophagitis (K21.0) Active confirmed Problem COPD - Chronic obstructive pulmonary disease (40663105) Chronic obstructive pulmonary disease, unspecified COPD type (J44.9) Active confirmed Problem Acquired hypothyroidism (720126354) Acquired hypothyroidism (E03.9) Active confirmed Problem Morbid obesity (072956084) Morbid obesity due to excess calories (E66.01) Active confirmed Problem Insomnia disorder related to another mental disorder (45758980) Psychophysiological insomnia (F51.04) Active confirmed Problem Body mass index 40+ - severely obese (974112561) Body mass index (BMI) of 40.1-44.9 in adult (Z68.41) Active confirmed Problem Pulmonary nodule (722456919) Pulmonary nodule (R91.1) Active confirmed Problem Dysphagia (96197568) Dysphagia, unspecified type (R13.10) Active confirmed Problem Obstructive sleep apnea syndrome (88756221) DANNY on CPAP (G47.33) Active confirmed Problem Familial hypercholesterolemia (489246264) Familial hypercholesterolemia (E78.01) Active confirmed Problem Tobacco use (415115260) Tobacco use disorder (F17.200) Active confirmed Problem Acute exacerbation o f chronic obstructive airways disease (994573918) Acute exacerbation of chronic obstructive pulmonary disease (COPD) (J44.1) Active confirmed Problem Chronic obstructive lung disease co-occurrent with acute bronchitis (397045988887321) Acute bronchitis with chronic obstructive pulmonary disease (COPD) (J44.0) Active confirmed Problem Recurrent major depression (09145402) Major depressive disorder, recurrent episode with anxious distress (F33.9) Active confirmed Problem Small cell lung cancer (189847577) Small cell lung cancer (C34.90) Active confirmed Problem Metastasis to brain (46723603) Metastasis to brain (C79.31) Active confirmed Vital Signs Heart Rate 88 /min 07/22/2024 Temperature 97.6 degrees Fahrenheit 07/22/2024 Blood pressure diastolic 72 mm Hg 07/22/2024 Height 5 ft 5 in in 07/22/2024 Blood pressure systolic 126 mm Hg 07/22/2024 Weight 193 lbs 07/22/2024 BMI 32.11 kg/m2 07/22/2024 Encounters Encounter Location Date Provider Diagnosis [facility] [address] [facility] [address] [place] [address] 06/29/2024 Provider Migration Depression with anxiety F41.8 ; Major depressive disorder, recurrent episode with anxious distress F33.9 and Sore throat J02.9 [facility] [address] [address] 07/22/2024 Aubrie McZoees Small cell lung canc er C34.90 ; Encounter for Medicare annual wellness exam Z00.00 ; Metastasis to brain C79.31 ; Depression with anxiety F41.8 ; Type 2 diabetes mellitus with other specified complication E11.69 ; Hyponatremia E87.1 ; Hypomagnesemia E83.42 ; Acquired hypothyroidism E03.9 ; Mixed hyperlipidemia E78.2 ; Obstructive sleep apnea (adult) (pediatric) G47.33 and Essential (primary) hypertension I10 [facility] [address] [facility] [address] [place] [address] 09/29/2023 Mango Albert [facility] [address] [place] [address] 10/02/2023 Mango Besson [facility] [address] [place] [address] 10/04/2023 Mango Besson [facility] [address] [place] [address] 10/06/2023 Mango Besson [facility] [address] [place] [address] 10/11/2023 Mango Besson [facility] [address] [place] [address] 10/17/2023 Aubrie McNees [facility] [address] [place] [address] 10/31/2023 Aubrie McNees [facility] [address] [place] [address] 12/06/2023 Aubrie McNees [facility] [address] [place] [address] 12/25/2023 Mango Besson Major depressive disorder, recurrent episode with anxious distress F33.9 [facility] [address] [place] [address] 12/25/2023 Aubrie McNees [facility] [address] [place] [address] 07/09/2024 Mango Besson [facility] [address] [place] [address] 07/22/2024 Aubrie McNees [facility] [address] [place] [address] 07/22/2024 Mango Besson Assessments Encounter Date Diagnosis (ICD Code) Assessment Notes Treatment Notes Treatment Clinical Notes Section Notes 12/25/2023 Major depressive disorder, recurrent episode with anxious distress (ICD-10 - F33.9) 06/29/2024 Depression with anxiety (ICD-10 - F41.8) 06/29/2024 Major depressive disorder, recurrent episode with anxious distress (ICD-10 - F33.9) 07/22/2024 Encounter for Medicare annual wellness exam (ICD-10 - Z00.00) Declines PVM Immunizations- flu and pneumonia utd 07/22/2024 Small cell lung cancer (ICD-10 - C34.90) Oncology note reviewed Overall has tolerated treatments well so far Keep FU with oncology for infusions Oxycodone PRN CSA updated. rayna report reviewed and is appropriate - discussed ongoing use of controlled medication and safety associated with these medications 07/22/2024 Metastasis to brain (ICD-10 - C79.31) See plan above 06/29/2024 Sore throat (ICD-10 - J02.9) 07/22/2024 Depression with anxiety (ICD-10 - F41.8) Patient is confused about her medications. She believes that she stopped her venalafaxine after discharge from [facility] due to confusion from d/c medication list. Advised her to check her meds against our updated list that we provided her today and call back and let me know. No changes made today. Has klonopin for PRN use 07/22/2024 Type 2 diabetes mellitus with other specified complication (ICD-10 - E11.69) Will check A1c with upcoming oncology labs 07/22/2024 Hyponatremia (ICD-10 - E87.1) Hyponatremia secondary to lung cancer On sodium replacement at home Repeat CMP with upcoming oncology labs. 07/22/2024 Hypomagnesemia (ICD-10 - E83.42) Magnesium replacement during inpatient stay Will repeat with upcoming labs to confirm stability 07/22/2024 Acquired hypothyroidism (ICD-10 - E03.9) Recent TSH around 6 Synthroid increased, will recheck at FU 07/22/2024 Mixed hyperlipidemia (ICD-10 - E78.2) On statin, tolerates well 07/22/2024 Obstructive sleep apnea (adult) (pediatric) (ICD-10 - G47.33) Tolerates CPAP with improvement of daytime somnolence 07/22/2024 Essential (primary) hypertension (ICD-10 - I10) BLood pressure at goal. No indication to restart beta patti at this time Plan Of Treatment Pending Test Test Name Order Date Mammogram : Bilateral 01/15/2018 Mammogram : Bilateral 11/01/2012 H-BUN 12/22/2015 H-CREATININE SERUM 12/22/2015 H-LIPID PANEL 06/19/2014 H-TSH 06/23/2014 C-CMP 06/24/2013 C-CMP 09/05/2016 C-CMP 05/01/2020 C-CMP 05/07/2013 C-LIPID PANEL 05/07/2013 C-LIPID PANEL 05/01/2020 C-LIPID PANEL 06/24/2013 C-LIPID PANEL 09/05/2016 C-TSH 09/05/2016 C-TSH 06/24/2013 C-TSH 08/17/2015 C-TSH 05/07/2013 C-HGBA1C 09/05/2016 C-HGBA1C 07/01/2013 M-Comprehensive Metabolic Panel 09/04/19 22 M-Comprehensive Metabolic Panel 11/23/19 19 M-Comprehensive Metabolic Panel 07/23/19 25 M-Hemoglobin A1C 11/22/2018 M-Hemoglobin A1C 09/03/2021 M-Hemoglobin A1C 07/22/2024 M-Magnesium 07/22/2024 M-Lipid Panel 11/22/2018 M-Lipid Panel 09/03/2021 M-Thyroid Stimulating Hormone 09/03/2021 M-Thyroid Stimulating Hormone 11/22/2018 Insurance Providers Payer Name Payer Address Payer Phone Subscriber Number Group Number Insured Name Patient Relationship to Insured Coverage Start Date Coverage End Date [place] [address] [place] [address] [id number] Shantal Stanford Self - patient is the insured [facility] [address] [place] [address] [id number] Shantal Stanford Self - patient is the insured [employer] [address] [place] [address] ACL Shantal Stanford Self - patient is the insured Medications Administered Medication Instructions Date of Administration Dosage Notes Kenalog 40mg 05/25/2018 40 mg Triamcinolone Acetonide 40mg Injection 02/05/2018 1 mL Triamcinolone Acetonide 40mg Injection 11/22/2018 1 mL Triamcinolone Acetonide 40mg Injection 11/12/2019 1 mL Triamcinolone Acetonide 40mg Injection 01/13/2020 1 mL Triamcinolone Acetonide 40mg Injection 06/12/2020 1 mL Kenalog 12/27/2012 1 Kenalog 07/10/2014 1 Medical (General) History Medical History History ICD Code hypothyroidism COPD Hyperlipidemia GERD Obesity Depression Tobacco abuse DANNY Herpes labialis stage 4 lung and brain cancer Surgical History Surgery Date(Month/Year) partial thyroidectomy D&C tubal ligation carpal tunnel partha hands x3 right shoulder x1 left shoulder x 2 Colonoscopy - NML 2010 2 lesion removed on brain 08/20/23 Hospitalization History Reason Date(Month/Year) [facility] Pneumonia 07/11- - stage 4 cancer 08/17-09/05/2023 rhinovirus 03/2020 [facility]-pneumonia 03/2019 pneumonia 03/2015 COPD 2013 above
--- OUTSIDE RECORDS SUMMARY | 2024-09-26 09:48 | XMS_ITS | Data Portability ---
Author Organization [place] - [facility] Address [address] [place] [address] Care Team Providers Care Cone Cleaner Name Role Phone LALIT PAINTER Referring Provider [...] be scheduled on or around 05/02/20242024 025 [facility], [address] [facility] [address], [place], [address], 10:17:19 Medication Orders None recorded. Patient TargetsNo targets recorded. Patient InstructionsNo instructions recorded. Reason for Referral None Reported. Results Created Date Observation Date Name Description Value Unit Range Abnormal Flag Note LastModifiedBy Organization Detail LastModifiedTime 01/10/20 24 12/14/2023 MRI, brain + brain stem, w/ contr ast No observ ation record ed. [email or web address] Machine Operator Helper [facility] [address], [place], [address], 01/10/2024 14:01:21 04/16/19 25 03/15/2024 MRI, brain , w/wo contr ast No observ ation record ed. [email or web address] Not Available 03/28 09:44:05 05/24/19 25 04/29/2024 MRI, brain , w/wo contr ast No observ ation record ed. [facility] Machine Operator Helper [address] [facility] [address], [place], [address], 05/27/2024 07:48:22 07/19/19 25 07/16/2024 MRI, brain , w/wo contr ast No observ ation record ed. [address], [place], [address], 07/18/2024 11:24:43 Result Notes None recorded. Problems Name Problem SNOMED Code Status Onset Date Resolution Date Notes Provider Name and Address Organization Details Recorded Time Small cell carcinoma of lung 053207169 Active 024 [place] Acevedo - [place] [facility] [place] 4 09:44:19 Metastatic malignant neoplasm to brain 45379579 Active 024 [place] Acevedo [facility] & [place] 4 09:44:41 Acute mucositis 314020221 Active 024 [place] Acevedo [facility] & [place] 4 13:51:43 Problem Notes None recorded. Procedures Surgical History Date Name Laterality Status Provider Name and Address Organization Details Recorded Time 08/31/19 24 endoscopic endobronchial ultrasonography guided transbronchial needle aspiration of mediastinal lymph node completed Fatoumata VÁZQUEZ [facility] & [place] 09/08/2023 10:42:33 08/21/19 24 craniotomy completed Fatoumata VÁZQUEZ [facility] & [place] 09/08/2023 10:42:09 Carpal tunnel surgery completed Fatoumata VÁZQUEZ [facility] & [place] 09/08/2023 10:41:49 Imaging Results None recorded. Procedure Notes None recorded. Medical Equipment None Reported. Allergies Allergen ID Allergen Name Allergen Category Reaction Reaction Severity Criticality Documentation Date Start Date Code Code System Note Provider Name and Address Organization Details Recorded Time 656495 Product containin g penicilli n (product) medicatio n Not available Not available Not available 09/08/2023 99634 8001 SNOMED [place] Acevedo [facility] & [place] 4 13:53:29 018949 Keflex medicatio n Not available Not available Not available 09/08/2023 52693 7 RxNorm [place] Acevedo [facility] & [place] 4 10:54:06 Medications Name Sig Start Date [...] Pulse oximetry Heart rate Respiratory rate Systolic And Diastolic Provider Name and Address Organization Details Last Updated DateTime 5 73672.2 2 g 97.3 [degF] 95 % 95 % 87 /min 19 /min 154/72 mm[Hg] Fatoumata VÁZQUEZ - [facility] 5 12:14:43 Date Recorded Body weight Body temperature Oxygen saturation Oxygen saturation in Arterial blood by Pulse oximetry Inhaled oxygen flow rate Heart rate Respiratory rate Systolic And Diastolic Provider Name and Address Organization Details Last Updated DateTime 5 03742.3 g 97.2 [degF] 95 % 95 % 3 L/min 84 /min 19 /min 143/69 mm[Hg] Fatoumata VÁZQUEZ [facility] 5 13:51:00 Date Recorded Body weight Body temperature Oxygen saturation Oxygen saturation in Arterial blood by Pulse oximetry Heart rate Respiratory rate Systolic And Diastolic Provider Name and Address Organization Details Last Updated DateTime 4 073504. 68 g 97.5 [degF] 98 % 98 % 96 /min 19 /min 125/67 mm[Hg] Fatoumata Ron LPNT [facility] & [place] 4 13:28:04 Date Recorded Body temperature Oxygen saturation Oxygen saturation in Arterial blood by Pulse oximetry Inhaled oxygen flow rate Heart rate Respiratory rate Systolic And Diastolic Provider Name and Address Organization Details Last Updated DateTime 4 97 [degF] 99 % 99 % 3 L/min 82 /min 20 /min 125/68 mm[Hg] Fatoumata PEÑA KATHIE [facility] & [place] 4 13:52:57 Social History Question Answer Notes LastModified by [employer] Details LastModified Time Tobacco Smoking Status Former Smoker Fatoumata Lozada [facility], [place] [facility] [place] 09/08/2023 10:41:23 When Did You Quit Smoking? 1-5yearssin celastcigar ette 6 Months Ago Information not available 09/08/2023 What Was The Date Of Your Most Recent Tobacco Screening? 09/08/2023 Information not available 09/08/2023 What Is Your Current Pack Years? 30ormorepac gingers 75 Pack Years Information not available 09/08/2023 [...] Status Question Answer Note LastModified by [employer] Details LastModified Time Do you or have [...] SNOMED-CT Code Diagnosis ICD10 Code Diagnosis Note [id number] [facility] [place] [address] 8 09/08/2023 09:37:05 09/08/2023 10:46:00 Small cell carcinoma of lung 925899409 C34.90 Metastatic malignant neoplasm to brain 66851659 C79.31 [id number] Renetta Lawson MD [place] [address] 8 09/13/2023 13:19:24 09/13/2023 15:32:20 Metastatic malignant neoplasm to brain 32161080 C79.31 Small cell carcinoma of lung 797140714 C34.90 [id number] Renetta Lawson MD [place] [address] 8 09/19/2023 13:36:21 09/19/2023 14:37:37 Small cell carcinoma of lung 460096742 C34.90 Metastatic malignant neoplasm to brain 31018771 C79.31 [id number] Renetta Lawson MD [place] [address] 8 09/20/2023 13:28:45 09/20/2023 14:17:44 Metastatic malignant neoplasm to brain 78077488 C79.31 Small cell carcinoma of lung 393882862 C34.90 [id number] Renetta Lawson MD [place] [address] 8 09/21/2023 13:39:23 09/21/2023 14:06:20 Small cell carcinoma of lung 547168198 C34.90 Metastatic malignant neoplasm to brain 13949684 C79.31 [id number] Renetta Lawson MD [place] [address] 8 09/24/2023 10:05:25 09/24/2023 10:59:16 Metastatic malignant neoplasm to brain 99801252 C79.31 Small cell carcinoma of lung 681219183 C34.90 [id number] Renetta Lawson MD [place] [address] 8 09/25/2023 08:19:34 09/25/2023 09:39:32 Small cell carcinoma of lung 774518583 C34.90 Metastatic malignant neoplasm to brain 86014393 C79.31 [id number] Renetta Lawson MD [place] [address] 8 09/22/2023 10:50:20 09/22/2023 11:24:40 Metastatic malignant neoplasm to brain 39697681 C79.31 [id number] Renetta Lawson MD [place] [address] 8 09/26/2023 08:24:03 09/26/2023 09:27:30 Metastatic malignant neoplasm to brain 70242397 C79.31 Small cell carcinoma of lung 156530641 C34.90 [id number] Renetta Lawson MD [place] [address] 8 09/27/2023 08:12:42 09/27/2023 11:08:08 Small cell carcinoma of lung 541608141 C34.90 Metastatic malignant neoplasm to brain 56716378 C79.31 [id number] Renetta Lawson MD [place] [address] 8 10/02/2023 13:36:53 10/02/2023 14:14:11 Small cell carcinoma of lung 939867456 C34.90 Metastatic malignant neoplasm to brain 64349390 C79.31 Acute mucositis 75834055 8 K12.30 [id number] Renetta Lawson MD [place] [address] 8 10/03/2023 13:36:12 10/03/2023 15:41:36 Small cell carcinoma of lung 601826704 C34.90 Metastatic malignant neoplasm to brain 62538254 C79.31 [id number] Renetta Lawson MD [place] [address] 8 11/06/2023 13:00:38 11/06/2023 14:00:15 Small cell carcinoma of lung 243093046 C34.90 Metastatic malignant neoplasm to brain 66352990 C79.31 [id number] Renetta Lawson MD [place] [address] 8 01/10/2024 13:38:12 01/10/2024 15:03:23 Metastatic malignant neoplasm to brain 47240914 C79.31 Small cell carcinoma of lung 658657677 C34.90 [id number] Renetta Lawson MD [place] [address] 8 04/04/2024 11:58:19 04/04/2024 12:41:56 Metastatic malignant neoplasm to brain 35973881 C79.31 Small cell carcinoma of lung 307322306 C34.90 [id number] Renetta Lawson MD [place] [address] 8 07/25/2024 13:49:05 07/25/2024 14:07:17 Metastatic malignant neoplasm to brain 28433853 C79.31 Small cell carcinoma of lung 066447591 C34.90 Health Concerns Section Related Observation LastModified by Organization Detai ls LastModified Time None Recorded Concern Status LastModified by Organization Details LastModified Time None Recorded Advance Directives Directive None Recorded Payers Insurance Date Sequence Insurance Name Policy Number Policy Richards Covered Member ID Richards Member ID Guarantor Name 07/25/2024 1 [place] Shantal Stanford [id number] Shantalarvin Stanford 07/25/2024 [place] - [place] ([place]ARE) Shantal Stanford [id number] Shantal Abdoulaye 07/25/2024 2 [place] [id number] Shantal Stanford [id number] Shantal Abdoulaye Notes Date Note Type [...] 24 hours a day. Renetta Lawson MD [address] [place] [address],[address], [place], [address], [facility] 10/03/2023 14:02:36 11/06/2023 text/html Patient is here [...] changes no other complaints. Renetta Lawson MD [address] [place] [address],[address], [place], [address], [facility] & [place] 11/06/2023 13:38:36 01/10/2024 text/html Patient is here [...] upper or lower limbs. Renetta Lawson MD [address] [place] [address],[address], [place], [address], [facility] 01/10/2024 14:10:49 04/04/2024 text/html Thanks Dr. Painter [...] walking. No memory loss. Renetta Lawson MD [address] [place] [address],[address], [place], [address], [place] - LPNT [facility] 04/04/2024 12:32:39 07/25/2024 text/html Patient is here [...] 3 weeks ago she was hospitalized at [facility] with pneumonia and sepsis [...] or lower limbs. Renetta Lawson MD [address] [facility],[address], [place], [address], [place] - LP[facility] & [place] 07/25/2024 13:59:51 OBGyn Episode No OBEpisode recorded.
[2024-09-26 10:17] LABS: Hematocrit 30.6 % (37.0-47.0); Hemoglobin 9.6 g/dL (12.2-16.2); Immature Granulocytes % 0.3 %; Mean Corpuscular HGB Conc 31.4 g/dL (31.8-35.4); Mean Corpuscular Hemoglobin 29.6 pg (27.0-31.2); Mean Corpuscular Volume 94.4 fl (81-99); Nucleated Red Blood Cells % 0 %; Platelet Count 256 K/mm3 (142-424); Red Blood Count 3.24 M/mm3 (4.20-5.40); Red Cell Distribution Width-SD 45.4 fL; White Blood Count 6.5 K/mm3 (4.8-10.8)
[2024-09-26 10:23] LABS: Chloride 90 mmol/L (98-107)
[2024-09-26 10:24] LABS: Albumin Level 4.4 g/dl (3.5-5.0); Potassium 4.2 mmoL/L (3.5-5.1); Sodium 136 mmol/L (136-145)
[2024-09-26 10:26] LABS: Alanine Aminotransferase 15 U/L (12-78); Blood Urea Nitrogen 8 mg/dl (7-17); Creatinine,Serum 0.80 mg/dl (0.52-1.04); Estimated Glomerular Filt Rate 72 ml/min (>60); GFR (African American) 87 ML/MIN (>60)
[2024-09-26 10:27] LABS: Albumin/Globulin Ratio 1.0 (1.1-1.8); Alkaline Phosphatase 82 U/L (38-126); Anion Gap 11.2 mEq/L (5-15); Aspartate Amino Transferase 25 U/L (14-36); Bilirubin,Total 0.4 mg/dl (0.2-1.3); Calcium 9.4 mg/dl (8.4-10.2); Carbon Dioxide 39 mmol/L (22.0-30.0); Globulin 4.5 g/dL (1.3-3.2); Glucose 93 mg/dl (74-100); Total Protein,Serum 8.9 g/dl (6.3-8.2)
[2024-09-26 10:57] LABS: Thyroid Stimulating Hormone 5.00 uIU/mL (0.465-4.68)
[2024-09-26 11:42] VITALS: BP 147/79; PULSE 75; RESP 18; TEMP 36.2; O2SAT 95
[2024-09-26] MEDS: SODIUM CHLORIDE 0.9% IV (11:42)
[2024-09-26] MEDS: ATEZOLIZUMAB IV (11:42)
[2024-09-26] MEDS: SODIUM CHLORIDE 0.9% 10ML FLUSH SYRINGE 10 ML IV (12:01)
[2024-09-26 12:22] VITALS: BP 151/77; PULSE 72; RESP 18; O2SAT 95
[2024-09-26 12:55] VITALS: BP 141/70; PULSE 78; RESP 18; O2SAT 96
== END 2024-09-26 12:55 | disposition home or self-care (01) ==
LOC: INF 09:42
PROVIDERS: PCP Internal Medicine Adolescent Medicine; Visit Provider Internal Medicine Medical Oncology
DX: C34.90 Malignant neoplasm of unspecified part of unspecified bronchus or lung (principal)
CPT/HCPCS: 80053; 82024; 82533; 84443; 85025; 96413; J7050; J9022

== ENCOUNTER 2024-10-10 12:25 | Outpatient (CLI) | payer MEDICARE, BC, SELFPAY ==
--- OUTSIDE RECORDS SUMMARY | 2024-06-29 17:30 | XMS_ITS ---
Author Organization [facility] Address [address] [place] [address] Care Team Providers Care Extras Casting Director Name Role Phone Mango Albert Primary Care Provider [phone] Migration, Provider Unavailable Unavailable Allergies Allergen (clinical drug ingredient) Drug/Non Drug Allergy documented on EMR Reaction Allergy Type Onset Date Status levetiracetam Keppra Unknown Drug Allergy Act farideh Penicillin Unknown Drug Allergy Active REAS[facility] FOR VISIT [facility] Encounter Medications Medication SIG (Take, Route, Frequency, Duration) Notes Start Date End Date Status Vitamin D3 25 MCG 1 tab(s) orally once a day Active Vitamin B1 50 MG 1 TAB(S) ORALLY ONCE A DAY *Please review and pick correct strength-formulat ion from [facility] options. If intended option [...] MOUTH INHALED EVERY 2 HOURS DIRECTED . PAINT SPRAYER SANDBLASTER RECOMMENDS NOT TO EXCEED 12 INHALATIONS A [...] a day; Duration: 90 days Active Nystatin 872477 UNIT/ML 5 ML orally 4 times a day; Duration: 15 days swish and swallow 09/22/2023 Active Nystatin 495629 UNIT/GM 1 denise applied topically 2 times a day 09/14/2023 Active Protonix 40 MG TAKE 1 TABLET BY MOUTH DAILY orally once a day; Duration: 90 days Active Atorvastatin Calcium 80 MG 1 tab(s) orally once a day; Duration: 90 Active Euthyrox 200 MCG (0.2 MG) 1 TAB(S) ORALLY ONCE A DAY; Duration: 90 DAYS *Please review and pick correct strength-formulat ion from [employer] options. If intended option is not shown, discontinue and re-order from Quick Search* Active Synthroid 25 MCG 1 tab(s) orally once a day; Duration: 90 days Active Trelegy Ellipta 200 MCG-62.5 MCG-25 MCG/INH 1 PUFF(S) INHALED ONCE A DAY; Duration: 90 DAYS *Please review and pick correct strength-formulat ion from [employer] options. If intended option is not shown, [...] Active Encounters Encounter Location Date Provider Diagnosis [facility] [place] [address] [facility] [address] [place] [address] 06/29/2024 Provider Migration Depression with anxiety F41.8 [...] MOUTH INHALED EVERY 2 HOURS DIRECTED . PAINT SPRAYER SANDBLASTER RECOMMENDS NOT TO EXCEED 12 INHALATIONS A [...] once a day; Duration: 90 days Nystatin 899703 UNIT/ML 5 ML orally 4 times a [...] * Shantal LEON LDOB:1960 (64 yo F)Acc No.[id number]:06/29/2024 Patient: Shantal POTTER Provider: Cody Oneil :1960 A ge:63 Y S ex:Female Date:06/29/2024 Address:[address] [place], [place] [id number] Pcp:Mango Albert Subjective: * Chief Complaints: * 1 . [facility] En[facility]. * Medical History: * [...] *Please review and pick correct strength-formulation from [facility] options. If intended option is not [...] *Please review and pick correct strength-formulation from [employer] options. If intended option is not shown, discontinue and re-order from Quick Search*, Taking Famotidine 40 MG Tablet 1 tab(s) orally once a day (at bedtime) , Taking Trelegy Ellipta 200 MCG-62.5 MCG-25 MCG/INH POWDER 1 PUFF(S) INHALED ONCE A DAY , Notes to Pharmacist: *Please review and pick correct strength-formulation from [employer] options. If intended option is not shown, discontinue and re-order from Quick Search*, Taking Nystatin 588664 UNIT/GM Ointment 1 denise applied topically 2 [...] 3. S ore throat Start Nystatin Suspension, 664037 UNIT/ML, 5 ML, orally, 4 times a [...] MOUTH INHALED EVERY 2 HOURS DIRECTED . PAINT SPRAYER SANDBLASTER RECOMMENDS NOT TO EXCEED 12 INHALATIONS A [...] Electronic signature of Prov ider Migration on 10/10/2024 at 12:27 PM EDT Sign off status: Pending * Provider: Cody albright Migration Date: 0 06/29/2024 Generated for Printi ng/Corinna/Melitting on: 0 10/10/2024 12:27 PM EDT
--- OUTSIDE RECORDS SUMMARY | 2024-09-03 20:00 | XMS_ITS | Clinical Summary ---
Author Organization Unknown Care Team Providers Care Thread Singer Name Role Phone ARUN NICKERSON, MAREK Unavailable Unavailable DIONISIO RN, OCTAVIANO Unavailable Unavailable JACKLYN ARTISN, STEPH Unavailable Unavailtruong BAKER PT, MAREK Unavailable Unavailable LIDYA BATTERY TECHNICIAN, MIREYA Unavailable Unavailable ELENI OT, DAVID Unavailable Unavailable Payers Payer Name Policy Type Policy Number Effective Date Expira tion Date MEDICARE.[facility] [id number] Problems Condition Name Condition Details Condition Category Status Onset Date Resolution Date Last Treatment Date Treating Clinician Comments PNEUMONIA, UNSPECIFIED ORGANISM Active 07-11 00:00: 00 CHR OBSTRUCTIVE PULMON DISEASE WITH (ACUTE) LOWER RESP INFCT Active 07-11 00:00: 00 CHRONIC OBSTRUCTIVE PULMONARY DISEASE W (ACUTE) EXACERBATION Active 07-11 00:00: 00 ACUTE AND CHRONIC RESPIRATORY FAILURE WITH HYPOXIA Active 07-11 00:00: 00 HYPOMAGNESEM IA Active 07-11 00:00: 00 HYPO-OSMOLAL ITY AND HYPONATREMIA Active 07-11 00:00: 00 MALIGNANT NEOPLASM OF UNSP PART OF UNSP BRONCHUS OR LUNG Active 07-11 00:00: 00 SECONDARY MALIGNANT NEOPLASM OF BRAIN Active 07-11 00:00: 00 ANEMIA IN NEOPLASTIC DISEASE Active 07-11 00:00: 00 HYPERTENSIVE HEART DISEASE WITH HEART FAILURE Active 03-27 00:00: 00 UNSPECIFIED DIASTOLIC (CONGESTIVE) HEART FAILURE Active 03-27 00:00: 00 ACUTE KIDNEY FAILURE, UNSPECIFIED Active 03-27 00:00: 00 TYPE 2 DIABETES MELLITUS WITHOUT COMPLICATION S Active 03-27 00:00: 00 HYPOTHYROIDI SM, UNSPECIFIED Active 03-27 00:00: 00 HYPERLIPIDEM IA, UNSPECIFIED Active 03-27 00:00: 00 DEPRESSION, UNSPECIFIED Active 03-27 00:00: 00 ANXIETY DISORDER, UNSPECIFIED Active 03-27 00:00: 00 GASTRO-ESOPH AGEAL REFLUX DISEASE WITHOUT ESOPHAGITIS Active 03-27 00:00: 00 CARE HOME (CURRENT) USE OF INHALED STEROIDS Active 03-27 00:00: 00 DEPENDENCE ON SUPPLEMENTAL OXYGEN Active 07-11 00:00: 00 PERSONAL HISTORY OF NICOTINE DEPENDENCE Active 03-27 00:00: 00 HISTORY OF FALLING Active 03-27 00:00: 00 Allergies, Adverse Reactions, Alerts Allergy Name Allergy Type Status Severity Reaction(s) Onset Date Inactive Date Treating Clinician Comments KEFLEX Propensity to adverse reactions Active 07-11 10:35: 33 PENICILLINS Propensity to adverse reactions Active 07-11 10:35: 46 Medications Ordered Medication Name Filled Medication Name Start Date Stop Date Current Medication? Ordering Clinician Indication Dosage Frequency Signature (SIG) Comments Components levofloxaci n 750 mg tablet 07-08 00:00: 00 07-18 23:59 :00 No [id number] ANTIBIOTIC 1 tablet DAILY 1 tablet DAILY (route: oral) Med Classific ation: Anti-Infe ctive Agents bisoprolol fumarate 5 mg tablet 06-11 00:00: 00 07-11 00:00 :00 No [id number] Per instruc tions Per instructio ns (route: oral) Med Classific ation: Cardiovas cular Therapy Agents albuterol sulfate HFA 90 mcg/actuati on aerosol inhaler 07-11 00:00: 00 Yes [id number] LUNGS 1 puff EVERY 4 HOURS 1 puff EVERY 4 HOURS (route: inhalation ) Med Classific ation: Respirato ry Therapy Agents atorvastati n 80 mg tablet 07-11 00:00: 00 Yes [id number] CHOLESTEROL 1 tablet DAILY 1 tablet DAILY (route: oral) Med Classific ation: Cardiovas cular Therapy Agents buspirone 10 mg tablet 07-11 00:00: 00 Yes [id number] DEPRESSION 1 tablet 3 TIMES DAILY 1 tablet 3 TIMES DAILY (route: oral) Med Classific ation: Central Nervous System Agents ipratropium 0.5 mg-albutero l 2.5 mg/2.5 mL solution for nebulizatio n 07-11 00:00: 00 Yes [id number] LUNGS 3 mg EVERY 6 HOURS 3 mg EVERY 6 HOURS (route: inhalation ) Med Classific ation: Respirato ry Therapy Agents levothyroxi ne 125 mcg capsule 07-11 00:00: 00 Yes [id number] THYROID 1 capsule DAILY 1 capsule DAILY (route: oral) Med Classific ation: Endocrine montelukast 10 mg tablet 07-11 00:00: 00 Yes [id number] ALLERGIES 1 tablet DAILY 1 tablet DAILY (route: oral) Med Classific ation: Respirato ry Therapy Agents oxycodone 5 mg tablet 07-11 00:00: 00 Yes [id number] PAIN 1 tablet EVERY 6 HOURS 1 tablet EVERY 6 HOURS (route: oral) Med Classific ation: Analgesic , Anti-infl ammatory or Antipyret ic oxygen gas for inhalation 07-11 00:00: 00 Yes [id number] OXYGEN 3.5 Liter O2 - CONTINUOUS 3.5 Liter O2 - CONTINUOUS (route: inhalation ) Med Classific ation: Medical Supplies and Durable Medical Equipment (DME) pantoprazol e 40 mg tablet,chun yed release 07-11 00:00: 00 Yes [id number] REFLUX 1 tablet DAILY 1 tablet DAILY (route: oral) Med Classific ation: Gastroint estinal Therapy Agents potassium chloride ER 20 mEq tablet,exte nded release 07-11 00:00: 00 Yes [id number] SUPPLEMENT 1 tablet DAILY 1 tablet DAILY (route: oral) Med Classific ation: Electroly te Balance-N utritiona l Products Trelegy Ellipta 200 mcg-62.5 mcg-25 mcg powder for inhalation 07-11 00:00: 00 Yes [id number] LUNGS 2 inhalat ion 2 TIMES DAILY 2 inhalation 2 TIMES DAILY (route: inhalation ) Med Classific ation: Respirato ry Therapy Agents venlafaxine 75 mg tablet 07-11 00:00: 00 Yes [id number] DEPRESSION 1 tablet DAILY 1 tablet DAILY (route: oral) Med Classific ation: Central Nervous System Agents Vital Signs Vital Name Observation Time Observation Value Commen ts Temperature 2024-09-04 15:59:00.000 97.2 [degF] Temperature 2024-09-03 12:15:00.000 97.6 [degF] Temperature 2024-08-27 16:15:00.000 97.6 [degF] Temperature 2024-08-27 11:56:00.000 97.4 [degF] Temperature 2024-08-23 09:43:00.000 97.8 [degF] Temperature 2024-08-22 11:38:00.000 97.4 [degF] Temperature 2024-08-09 13:26:00.000 97.4 [degF] Temperature 2024-08-02 09:09:00.000 96.5 [degF] Temperature 2024 10:05:00.000 97.6 [degF] Temperature 2024-07-26 09:08:00.000 97.1 [degF] Temperature 2024-07-19 13:00:00.000 98 [degF] Temperature 2024-07-17 13:16:00.000 97.9 [degF] Temperature 2024-07-12 16:20:00.000 97.7 [degF] Temperature 2024-07-11 19:15:00.000 98.9 [degF] Height 2024-07-11 10:16:08.000 65 [in_us] Pulse 2024-09-04 15:59:00.000 72 /min Pulse 2024-09-03 12:15:00.000 86 /min Pulse 2024-08-27 16:15:00.000 93 /min Pulse 2024-08-27 11:56:00.000 95 /min Pulse 2024-08-23 09:43:00.000 85 /min Pulse 2024-08-22 11:38:00.000 93 /min Pulse 2024-08-09 13:26:00.000 83 /min Pulse 2024-08-02 09:09:00.000 67 /min Pulse 2024 10:05:00.000 88 /min Pulse 2024-07-26 09:08:00.000 86 /min Pulse 2024-07-19 13:00:00.000 100 /min Pulse 2024-07-17 13:16:00.000 74 /min Pulse 2024-07-12 16:20:00.000 87 /min Pulse 2024-07-11 19:15:00.000 100 /min O2 Saturation (%) 2024-09-04 15:59:00.000 100 % O2 Saturation (%) 2024-09-03 12:15:00.000 100 % O2 Saturation (%) 2024-08-27 16:15:00.000 99 % O2 Saturation (%) 2024-08-27 11:56:00.000 99 % O2 Saturation (%) 2024-08-23 09:43:00.000 99 % O2 Saturation (%) 2024-08-22 11:38:00.000 97 % O2 Saturation (%) 2024-08-09 13:26:00.000 99 % O2 Saturation (%) 2024-08-02 09:09:00.000 100 % O2 Saturation (%) 2024 10:05:00.000 99 % O2 Saturation (%) 2024-07-26 09:14:00.000 98 % O2 Saturation (%) 2024-07-19 13:00:00.000 100 % O2 Saturation (%) 2024-07-17 13:16:00.000 98 % O2 Saturation (%) 2024-07-12 16:20:00.000 97 % O2 Saturation (%) 2024-07-11 19:15:00.000 95 % Respirations 2024-09-04 15:59:00.000 16 /min Respirations 2024-09-03 12:15:00.000 20 /min Respirations 2024-08-27 16:15:00.000 18 /min Respirations 2024-08-27 11:56:00.000 18 /min Respirations 2024-08-23 09:43:00.000 18 /min Respirations 2024-08-22 11:38:00.000 16 /min Respirations 2024-08-09 13:26:00.000 18 /min Respirations 2024-08-02 09:09:00.000 17 /min Respirations 2024 10:05:00.000 16 /min Respirations 2024-07-26 09:08:00.000 17 /min Respirations 2024-07-19 13:00:00.000 20 /min Respirations 2024-07-17 13:16:00.000 15 /min Respirations 2024-07-12 16:20:00.000 18 /min Respirations 2024-07-11 19:15:00.000 20 /min Weight (lbs) 2024-09-03 12:22:00.000 190.4 [lb_av] Weight (lbs) 2024-08-27 11:57:00.000 190 [lb_av] Weight (lbs) 2024-08-22 11:42:00.000 190 [lb_av] Weight (lbs) 2024-08-09 13:26:00.000 188 [lb_av] Weight (lbs) 2024-08-02 09:18:00.000 188 [lb_av] Weight (lbs) 2024-07-26 09:15:00.000 189.6 [lb_av] Systolic Blood Pressure 2024-09-04 15:59:00.000 122 mm [Hg] Systolic Blood Pressure 2024-09-03 12:15:00.000 132 mm [Hg] Systolic Blood Pressure 2024-08-27 16:15:00.000 122 mm [Hg] Systolic Blood Pressure 2024-08-27 11:56:00.000 121 mm [Hg] Systolic Blood Pressure 2024-08-23 09:43:00.000 134 mm [Hg] Systolic Blood Pressure 2024-08-22 11:38:00.000 136 mm [Hg] Systolic Blood Pressure 2024-08-09 13:26:00.000 126 mm [Hg] Systolic Blood Pressure 2024-08-02 09:09:00.000 132 mm [Hg] Systolic Blood Pressure 2024 10:05:00.000 124 mm [Hg] Systolic Blood Pressure 2024-07-26 09:08:00.000 128 mm [Hg] Systolic Blood Pressure 2024-07-19 13:00:00.000 122 mm [Hg] Systolic Blood Pressure 2024-07-17 13:16:00.000 122 mm [Hg] Systolic Blood Pressure 2024-07-12 16:20:00.000 122 mm [Hg] Systolic Blood Pressure 2024-07-11 19:15:00.000 128 mm [Hg] Diastolic Blood Pressure 2024-09-04 15:59:00.000 68 mm [Hg] Diastolic Blood Pressure 2024-09-03 12:15:00.000 78 mm [Hg] Diastolic Blood Pressure 2024-08-27 16:15:00.000 72 mm [Hg] Diastolic Blood Pressure 2024-08-27 11:56:00.000 71 mm [Hg] Diastolic Blood Pressure 2024-08-23 09:43:00.000 82 mm [Hg] Diastolic Blood Pressure 2024-08-22 11:38:00.000 72 mm [Hg] Diastolic Blood Pressure 2024-08-09 13:26:00.000 82 mm [Hg] Diastolic Blood Pressure 2024-08-02 09:09:00.000 76 mm [Hg] Diastolic Blood Pressure 2024 10:05:00.000 76 mm [Hg] Diastolic Blood Pressure 2024-07-26 09:08:00.000 72 mm [Hg] Diastolic Blood Pressure 2024-07-19 13:00:00.000 74 mm [Hg] Diastolic Blood Pressure 2024-07-17 13:16:00.000 64 mm [Hg] Diastolic Blood Pressure 2024-07-12 16:20:00.000 74 mm [Hg] Diastolic Blood Pressure 2024-07-11 19:15:00.000 80 mm [Hg] Plan of Treatment Planned Activity Planned Date Details Comments Future Scheduled Test RN TO OBSE RVE, ASSESS, EVALUATE, AND DEVELOP AN INDIVIDUALIZED PLAN OF CARE. AGENCY MAY ACCEPT ORDERS FROM CONSULTING PHYSICIANS LALIT ANSARI. RN TO OBSERVE AND ASSESS, TRANSMISSION BUILDER/TRANSACTION PROCESSOR TO OBSERVE FOR RISK FOR FALLS AND INSTRUCT IN FALL PREVENTION, HOME SAFETY, MEDICATION MANAGEMENT, INFECTION PREVENTION, AND NUTRITION MANAGEMENT. RN/TRANSMISSION BUILDER/TRANSACTION PROCESSOR NURSE MAY PERFORM O2 SATURATION LEVEL ON ADMISSION AND PRN FOR DYSPNEA FOR RN TO ASSESS/TRANSMISSION BUILDER TO OBSERVE PATIENT, WITH NOTIFICATION TO THE PHYSICIAN IF SATURATION IS 90% IN THE ABSENCE OF MORE SPECIFIC PARAMETERS FROM THE PHYSICIAN. AGENCY MAY PERFORM A RESUMPTION OF CARE VISIT FOLLOWING ANY HOSPITAL ADMISSION. RN/TRANSMISSION BUILDER/TRANSACTION PROCESSOR TO MONITOR CO-MORBID CONDITIONS LISTED ON THE PLAN OF CARE AND ANY NEW CONDITIONS THAT PRESENT THEMSELVES DURING THIS EPISODE TO IDENTIFY CHANGES AND INTERVENE TO MINIMIZE COMPLICATIONS. [code = RN TO OBSERVE, ASSESS, EVALUATE, AND DEVELOP AN INDIVIDUALIZED PLAN OF CARE. AGENCY MAY ACCEPT ORDERS FROM CONSULTING PHYSICIANS MAREK DIAS, LALIT AMOS. RN TO OBSERVE AND ASSESS, TRANSMISSION BUILDER/TRANSACTION PROCESSOR TO OBSERVE FOR RISK FOR FALLS AND INSTRUCT IN FALL PREVENTION, HOME SAFETY, MEDICATION MANAGEMENT, INFECTION PREVENTION, AND NUTRITION MANAGEMENT. RN/TRANSMISSION BUILDER/TRANSACTION PROCESSOR NURSE MAY PERFORM O2 SATURATION LEVEL ON ADMISSION AND PRN FOR DYSPNEA FOR RN TO ASSESS/TRANSMISSION BUILDER TO OBSERVE PATIENT, WITH NOTIFICATION TO THE PHYSICIAN IF SATURATION IS 90% IN THE ABSENCE OF MORE SPECIFIC PARAMETERS FROM THE PHYSICIAN. AGENCY MAY PERFORM A RESUMPTION OF CARE VISIT FOLLOWING ANY HOSPITAL ADMISSION. RN/TRANSMISSION BUILDER/TRANSACTION PROCESSOR TO MONITOR CO-MORBID CONDITIONS LISTED ON THE PLAN OF CARE AND ANY NEW CONDITIONS THAT PRESENT THEMSELVES DURING THIS EPISODE TO IDENTIFY CHANGES AND INTERVENE TO MINIMIZE COMPLICATIONS.] Future Scheduled Test MEDICATION MANAGEMENT; RN/TRANSMISSION BUILDER/TRANSACTION PROCESSOR TO REVIEW MEDICATIONS FOR INTERACTIONS, EFFECTIVENESS OF DRUG THERAPY, AND SIGNS/SYMPTOMS OF ADVERSE REACTIONS. MAY INSTRUCT AND REINFORCE MEDICATION TEACHING RELATED TO THE USE OF MEDICATIONS, DOSAGE, FREQUENCY, PURPOSE, SIDE EFFECTS, AND TO REPORT COMPLICATIONS. [code = MEDICATION MANAGEMENT; RN/TRANSMISSION BUILDER/TRANSACTION PROCESSOR TO REVIEW MEDICATIONS FOR INTERACTIONS, EFFECTIVENESS OF DRUG THERAPY, AND SIGNS/SYMPTOMS OF ADVERSE REACTIONS. MAY INSTRUCT AND REINFORCE MEDICATION TEACHING RELATED TO THE USE OF MEDICATIONS, DOSAGE, FREQUENCY, PURPOSE, SIDE EFFECTS, AND TO REPORT COMPLICATIONS.] Future Scheduled Test RISK FOR H OSPITALIZATION; RN TO ASSESS/TEACH, TRANSACTION PROCESSOR/TRANSMISSION BUILDER TO OBSERVE/TEACH PATIENT/CAREGIVER ON RISK FOR HOSPITALIZATION/EMERGENCY ROOM VISITS, TEACH SIGNS AND SYMPTOMS THAT PUT PATIENT AT RISK, WHEN TO NOTIFY NURSE/PHYSICIAN OF COMPLICATIONS/DECLINE, AND WHEN TO CALL 911. [code = RISK FOR HOSPITALIZATION; RN TO ASSESS/TEACH, TRANSACTION PROCESSOR/TRANSMISSION BUILDER TO OBSERVE/TEACH PATIENT/CAREGIVER ON RISK FOR HOSPITALIZATION/EMERGENCY ROOM VISITS, TEACH SIGNS AND SYMPTOMS THAT PUT PATIENT AT RISK, WHEN TO NOTIFY NURSE/PHYSICIAN OF COMPLICATIONS/DECLINE, AND WHEN TO CALL 911.] Future Scheduled Test CARDIOVASC ULAR SYSTEM; RN TO ASSESS/TEACH, TRANSMISSION BUILDER/TRANSACTION PROCESSOR TO OBSERVE/TEACH RELATED TO ALTERED CARDIOVASCULAR STATUS TO MINIMIZE COMPLICATIONS AND REDUCE HOSPITALIZATION. [code = CARDIOVASCULAR SYSTEM; RN TO ASSESS/TEACH, TRANSMISSION BUILDER/TRANSACTION PROCESSOR TO OBSERVE/TEACH RELATED TO ALTERED CARDIOVASCULAR STATUS TO MINIMIZE COMPLICATIONS AND REDUCE HOSPITALIZATION.] Future Scheduled Test HEART FAIL URE; RN TO ASSESS/TEACH, TRANSMISSION BUILDER/TRANSACTION PROCESSOR TO OBSERVE/TEACH CARDIOPULMONARY SYSTEM TO IDENTIFY SIGNS OF DECOMPENSATION AND INTERVENE TO MINIMIZE THE SEVERITY OF FLUID OVERLOAD. OBSERVE PATIENT ABILITY TO MONITOR AND RECORD DAILY WEIGHTS AND VITAL SIGNS, INCLUDING PULSE AND BLOOD PRESSURE; RECORD PATIENT REPORTED WEIGHT, OR WEIGH PATIENT NEEDED. REPORT INCREASED EDEMA OR WEIGHT GAIN OF >2 LBS IN 1 DAY OR >5 LBS IN 1 WEEK OR 5LBS OR MORE OVER TARGET WEIGHT. MAY MEASURE ABDOMINAL GIRTH IF UNABLE TO WEIGH. SCALES AND BP MONITOR TO BE PROVIDED IF NEEDED. [code = HEART FAILURE; RN TO ASSESS/TEACH, TRANSMISSION BUILDER/TRANSACTION PROCESSOR TO OBSERVE/TEACH CARDIOPULMONARY SYSTEM TO IDENTIFY SIGNS OF DECOMPENSATION AND INTERVENE TO MINIMIZE THE SEVERITY OF FLUID OVERLOAD. OBSERVE PATIENT ABILITY TO MONITOR AND RECORD DAILY WEIGHTS AND VITAL SIGNS, INCLUDING PULSE AND BLOOD PRESSURE; RECORD PATIENT REPORTED WEIGHT, OR WEIGH PATIENT NEEDED. REPORT INCREASED EDEMA OR WEIGHT GAIN OF >2 LBS IN 1 DAY OR >5 LBS IN 1 WEEK OR 5LBS OR MORE OVER TARGET WEIGHT. MAY MEASURE ABDOMINAL GIRTH IF UNABLE TO WEIGH. SCALES AND BP MONITOR TO BE PROVIDED IF NEEDED.] Future Scheduled Test HYPERTENSI ON MANAGEMENT; RN TO ASSESS AND TEACH, TRANSMISSION BUILDER/TRANSACTION PROCESSOR TO OBSERVE AND TEACH WARNING SIGNS AND SYMPTOMS TO AVOID HOSPITALIZATION. [code = HYPERTENSION MANAGEMENT; RN TO ASSESS AND TEACH, TRANSMISSION BUILDER/TRANSACTION PROCESSOR TO OBSERVE AND TEACH WARNING SIGNS AND SYMPTOMS TO AVOID HOSPITALIZATION.] Future Scheduled Test RESPIRATOR Y SYSTEM MANAGEMENT; RN TO ASSESS AND TEACH, TRANSMISSION BUILDER/TRANSACTION PROCESSOR TO OBSERVE AND TEACH RELATED TO ALTERED RESPIRATORY STATUS TO MINIMIZE COMPLICATIONS AND REDUCE HOSPITALIZATION. [code = RESPIRATORY SYSTEM MANAGEMENT; RN TO ASSESS AND TEACH, TRANSMISSION BUILDER/TRANSACTION PROCESSOR TO OBSERVE AND TEACH RELATED TO ALTERED RESPIRATORY STATUS TO MINIMIZE COMPLICATIONS AND REDUCE HOSPITALIZATION.] Future Scheduled Test COPD MANAG EMENT; RN TO ASSESS AND TEACH, TRANSMISSION BUILDER/TRANSACTION PROCESSOR TO OBSERVE AND TEACH SIGNS/SYMPTOMS OF COPD EXACERBATION AND PROVIDE EARLY INTERVENTIONS TO MINIMIZE RISK OF HOSPITALIZATION. RN/TRANSMISSION BUILDER/TRANSACTION PROCESSOR TO INSTRUCT ON SELF-CARE MANAGEMENT INCLUDING BREATHING TECHNIQUES, AIRWAY CLEARANCE, AND PROPER USE OF COPD MEDICATIONS. RN TO ASSESS AND TEACH, TRANSMISSION BUILDER/TRANSACTION PROCESSOR TO OBSERVE AND TEACH PATIENT/CAREGIVER ABILITY TO MONITOR AND RECORD VITAL SIGNS INCLUDING PULSE OXIMETRY AND BLOOD PRESSURE. PULSE OXIMETER AND BP MONITOR TO BE PROVIDED IF NEEDED [code = COPD MANAGEMENT; RN TO ASSESS AND TEACH, TRANSMISSION BUILDER/TRANSACTION PROCESSOR TO OBSERVE AND TEACH SIGNS/SYMPTOMS OF COPD EXACERBATION AND PROVIDE EARLY INTERVENTIONS TO MINIMIZE RISK OF HOSPITALIZATION. RN/TRANSMISSION BUILDER/TRANSACTION PROCESSOR TO INSTRUCT ON SELF-CARE MANAGEMENT INCLUDING BREATHING TECHNIQUES, AIRWAY CLEARANCE, AND PROPER USE OF COPD MEDICATIONS. RN TO ASSESS AND TEACH, TRANSMISSION BUILDER/TRANSACTION PROCESSOR TO OBSERVE AND TEACH PATIENT/CAREGIVER ABILITY TO MONITOR AND RECORD VITAL SIGNS INCLUDING PULSE OXIMETRY AND BLOOD PRESSURE. PULSE OXIMETER AND BP MONITOR TO BE PROVIDED IF NEEDED ] Future Scheduled Test ASTHMA MAN AGEMENT; RN TO ASSESS AND TEACH, TRANSMISSION BUILDER/TRANSACTION PROCESSOR TO OBSERVE AND TEACH ASTHMA MANAGEMENT AND PROVIDE EARLY INTERVENTIONS TO MINIMIZE RISK OF HOSPITALIZATION [code = ASTHMA MANAGEMENT; RN TO ASSESS AND TEACH, TRANSMISSION BUILDER/TRANSACTION PROCESSOR TO OBSERVE AND TEACH ASTHMA MANAGEMENT AND PROVIDE EARLY INTERVENTIONS TO MINIMIZE RISK OF HOSPITALIZATION] Future Scheduled Test OXYGEN THE RAPY; RN/TRANSMISSION BUILDER/TRANSACTION PROCESSOR TO INSTRUCT ON OXYGEN MANAGEMENT INCLUDING: ADMINISTRATION AT 3.5L/MIN VIA NC CONTINUOUS, CARE OF EQUIPMENT AND SAFETY. [code = OXYGEN THERAPY; RN/TRANSMISSION BUILDER/TRANSACTION PROCESSOR TO INSTRUCT ON OXYGEN MANAGEMENT INCLUDING: ADMINISTRATION AT 3.5L/MIN VIA NC CONTINUOUS, CARE OF EQUIPMENT AND SAFETY.] Future Scheduled Test SKIN INTEG RITY RN TO ASSESS AND TEACH, TRANSMISSION BUILDER/TRANSACTION PROCESSOR TO OBSERVE AND TEACH INTEGUMENTARY STATUS TO IDENTIFY CHANGES AND INTERVENE TO MINIMIZE COMPLICATIONS. PROVIDE SKILLED TEACHING OF GENERAL WOUND AND SKIN CARE AND PREVENTION RELATED TO POTENTIAL FOR OR ACTUAL ALTERED SKIN INTEGRITY [code = SKIN INTEGRITY RN TO ASSESS AND TEACH, TRANSMISSION BUILDER/TRANSACTION PROCESSOR TO OBSERVE AND TEACH INTEGUMENTARY STATUS TO IDENTIFY CHANGES AND INTERVENE TO MINIMIZE COMPLICATIONS. PROVIDE SKILLED TEACHING OF GENERAL WOUND AND SKIN CARE AND PREVENTION RELATED TO POTENTIAL FOR OR ACTUAL ALTERED SKIN INTEGRITY ] Future Scheduled Test PAIN MANAG EMENT; RN TO ASSESS AND TEACH, TRANSACTION PROCESSOR/TRANSMISSION BUILDER TO OBSERVE AND TEACH AND PROVIDE EDUCATION ON PAIN MANAGEMENT TECHNIQUES. [code = PAIN MANAGEMENT; RN TO ASSESS AND TEACH, TRANSACTION PROCESSOR/TRANSMISSION BUILDER TO OBSERVE AND TEACH AND PROVIDE EDUCATION ON PAIN MANAGEMENT TECHNIQUES.] Future Scheduled Test GENITOURIN VAMSHI MANAGEMENT; RN TO ASSESS AND TEACH, TRANSMISSION BUILDER/TRANSACTION PROCESSOR TO OBSERVE AND TEACH RELATED TO ALTERED GENITOURINARY STATUS TO MINIMIZE COMPLICATIONS AND REDUCE HOSPITALIZATION. [code = GENITOURINARY MANAGEMENT; RN TO ASSESS AND TEACH, TRANSMISSION BUILDER/TRANSACTION PROCESSOR TO OBSERVE AND TEACH RELATED TO ALTERED GENITOURINARY STATUS TO MINIMIZE COMPLICATIONS AND REDUCE HOSPITALIZATION.] Future Scheduled Test URINARY TR ACT INFECTION MANAGEMENT; RN/TRANSACTION PROCESSOR/TRANSMISSION BUILDER TO PROVIDE SKILLED TEACHING AND SELF- CARE MANAGEMENT RELATED TO UTI TO MINIMIZE COMPLICATIONS AND REDUCE THE RISK OF HOSPITALIZATION. [code = URINARY TRACT INFECTION MANAGEMENT; RN/TRANSACTION PROCESSOR/TRANSMISSION BUILDER TO PROVIDE SKILLED TEACHING AND SELF- CARE MANAGEMENT RELATED TO UTI TO MINIMIZE COMPLICATIONS AND REDUCE THE RISK OF HOSPITALIZATION.] Future Scheduled Test FALL REDUC TION MANAGEMENT; RN TO ASSESS AND OBSERVE, TRANSMISSION BUILDER/TRANSACTION PROCESSOR TO OBSERVE FALL RISK FACTORS AND EDUCATE PATIENT/CAREGIVER ON STRATEGIES TO MINIMIZE THE RISK OF FALLING. [code = FALL REDUCTION MANAGEMENT; RN TO ASSESS AND OBSERVE, TRANSMISSION BUILDER/TRANSACTION PROCESSOR TO OBSERVE FALL RISK FACTORS AND EDUCATE PATIENT/CAREGIVER ON STRATEGIES TO MINIMIZE THE RISK OF FALLING.] Future Scheduled Test CANCER MAN AGEMENT; RN TO ASSESS AND TEACH, TRANSACTION PROCESSOR/TRANSMISSION BUILDER TO OBSERVE AND TEACH AND PROVIDE EDUCATION ON CANCER. [code = CANCER MANAGEMENT; RN TO ASSESS AND TEACH, TRANSACTION PROCESSOR/TRANSMISSION BUILDER TO OBSERVE AND TEACH AND PROVIDE EDUCATION ON CANCER.] Future Scheduled Test PRN VISITS ; NUMBER OF RN/TRANSMISSION BUILDER/TRANSACTION PROCESSOR VISITS: 2 RN/TRANSMISSION BUILDER/TRANSACTION PROCESSOR TO PERFORM: CARDIOPULMONARY STATUS FOR THE FOLLOWING REASONS: WEIGHT GAIN, SWELLING, INCREASED SHORTNESS OF BREATH, COUGH, FEVER, CONFUSION, [code = PRN VISITS; NUMBER OF RN/TRANSMISSION BUILDER/TRANSACTION PROCESSOR VISITS: 2 RN/TRANSMISSION BUILDER/TRANSACTION PROCESSOR TO PERFORM: CARDIOPULMONARY STATUS FOR THE FOLLOWING REASONS: WEIGHT GAIN, SWELLING, INCREASED SHORTNESS OF BREATH, COUGH, FEVER, CONFUSION, ] Future Scheduled Test PHYSICAL T HERAPIST TO EVALUATE FOR GAIT ENDURANCE STRENGTH [code = PHYSICAL THERAPIST TO EVALUATE FOR GAIT ENDURANCE STRENGTH ] Future Scheduled Test DIABETES M ANAGEMENT; RN TO ASSESS AND TEACH, TRANSACTION PROCESSOR/TRANSMISSION BUILDER TO OBSERVE AND TEACH INSTRUCTIONS OF DIABETIC CARE TO INCLUDE: DIET LOW CARB, SKIN CARE, SIGNS AND SYMPTOMS OF HYPO/HYPERGLYCEMIA, PROPER ADMINISTRATION OF DIABETIC MEDICATION. RN/TRANSACTION PROCESSOR/TRANSMISSION BUILDER TO INSTRUCT ON DIABETIC FOOT CARE AND MONITOR FOR SKIN LESIONS ON LOWER EXTREMITIES. BLOOD GLUCOSE TESTING PRN FREQ. RN TO ASSESS AND TEACH, TRANSACTION PROCESSOR/TRANSMISSION BUILDER TO OBSERVE AND TEACH PATIENT/CAREGIVER ABILITY TO PERFORM AND RECORD BLOOD GLUCOSE TESTING ORDERED AND TO REPORT ABNORMAL FINDINGS TO PHYSICIAN. RN/TRANSACTION PROCESSOR/TRANSMISSION BUILDER MAY PERFORM BLOOD GLUCOSE TEST NEEDED. RN/TRANSACTION PROCESSOR/TRANSMISSION BUILDER TO REPORT TO PHYSICIAN BLOOD GLUCOSE READINGS GREATER THAN 400 OR LESS THAN 60 RN/TRANSACTION PROCESSOR/TRANSMISSION BUILDER TO INSTRUCT PATIENT ON IMPORTANCE OF HGBA1C MONITORING, KIDNEY FUNCTION TEST, EYE AND FOOT EXAMS. [code = DIABETES MANAGEMENT; RN TO ASSESS AND TEACH, TRANSACTION PROCESSOR/TRANSMISSION BUILDER TO OBSERVE AND TEACH INSTRUCTIONS OF DIABETIC CARE TO INCLUDE: DIET LOW CARB, SKIN CARE, SIGNS AND SYMPTOMS OF HYPO/HYPERGLYCEMIA, PROPER ADMINISTRATION OF DIABETIC MEDICATION. RN/TRANSACTION PROCESSOR/TRANSMISSION BUILDER TO INSTRUCT ON DIABETIC FOOT CARE AND MONITOR FOR SKIN LESIONS ON LOWER EXTREMITIES. BLOOD GLUCOSE TESTING PRN FREQ. RN TO ASSESS AND TEACH, TRANSACTION PROCESSOR/TRANSMISSION BUILDER TO OBSERVE AND TEACH PATIENT/CAREGIVER ABILITY TO PERFORM AND RECORD BLOOD GLUCOSE TESTING ORDERED AND TO REPORT ABNORMAL FINDINGS TO PHYSICIAN. RN/TRANSACTION PROCESSOR/TRANSMISSION BUILDER MAY PERFORM BLOOD GLUCOSE TEST NEEDED. RN/TRANSACTION PROCESSOR/TRANSMISSION BUILDER TO REPORT TO PHYSICIAN BLOOD GLUCOSE READINGS GREATER THAN 400 OR LESS THAN 60 RN/TRANSACTION PROCESSOR/TRANSMISSION BUILDER TO INSTRUCT PATIENT ON IMPORTANCE OF HGBA1C MONITORING, KIDNEY FUNCTION TEST, EYE AND FOOT EXAMS.] Future Scheduled Test AGENCY MAY PERFORM A RESUMPTION OF CARE VISIT FOLLOWING ANY HOSPITAL ADMISSION. PT TO EVALUATE, OBSERVE / ASSESS, AND MONITOR, BATTERY TECHNICIAN TO OBSERVE AND MONITOR, PROVIDE SKILLED THERAPEUTIC INTERVENTION, ACTIVITY, EDUCATION, AND TRAINING TO ADDRESS; PT/BATTERY TECHNICIAN TO PROVIDE GAIT TRAINING FOR IMPROVED MOBILITY AND /OR TO NORMALIZE GAIT PATTERN NEUROMUSCULAR RE-EDUCATION / BALANCE / POSTURAL CONTROL (PT) THERAPEUTIC EXERCISES AND ESTABLISHING A HOME EXERCISE PROGRAM (PT/BATTERY TECHNICIAN) SIT TO/FROM STAND TRANSFERS (PT/BATTERY TECHNICIAN) PT / BATTERY TECHNICIAN TO EDUCATE PATIENT / CAREGIVER ON OXYGEN MANAGEMENT PT / BATTERY TECHNICIAN MAY EDUCATE ON PAIN MANAGEMENT CLINICALLY INDICATED, INCLUDING NON-PHARMACOLOGICAL PAIN REDUCTION TECHNIQUES PT / BATTERY TECHNICIAN TO MONITOR FOR HYPO/HYPERGLYCEMIA AND CONDUCT ROUTINE FOOT INSPECTIONS. RECORD PATIENT REPORTED BLOOD SUGAR LEVELS AND NOTIFY PHYSICIAN AND/OR THE RN CLINICAL P[employer]ING [employer] SUPERVISOR FOR PHYSICIAN NOTIFICATION IF BLOOD SUGAR LEVELS ARE OUTSIDE ORDERED PARAMETERS. TEACH PATIENT/CAREGIVER ON DAILY FOOT INSPECTIONS PT TO ASSESS / BATTERY TECHNICIAN TO MONITOR CARDIO/RESPIRATORY SYSTEM; AND NOTIFY THE PHYSICIAN AND/OR THE RN CLINICAL PICKING [employer]W SUPERVISOR FOR PHYSICIAN NOTIFICATION FOR EARLY SIGNS AND SYMPTOMS OF EXACERBATION OR DETERIORATION. PT/BATTERY TECHNICIAN TO IDENTIFY FALL RISK FACTORS; EDUCATE THE PATIENT/CAREGIVER ON WAYS TO REDUCE FALL RISK FACTORS AND ESTABLISH HOME EXERCISE PROGRAM TO MINIMIZE FALL RISK. MAY TEACH THE PATIENT FLOOR RECOVERY WHEN CLINICALLY APPROPRIATE PT TO ASSESS / BATTERY TECHNICIAN TO MONITOR FOR HEART FAILURE EXACERBATION AND RECORD PATIENT REPORTED WEIGHT, AND NOTIFY THE PHYSICIAN AND/OR THE RN CLINICAL PICKING [employer] SUPERVISOR FOR PHYSICIAN NOTIFICATION OF HF EXACERBATION (2LB WEIGHT GAIN IN 1 DAY, 5LBS IN A WEEK OR 5 LBS OVER BASELINE; INCREASED SOB, EDEMA, NEEDING MORE PILLOWS AT NIGHT, CRACKLES IN BASIS OF THE LUNGS OR PMI SHIFT) [code = AGENCY MAY PERFORM A RESUMPTION OF CARE VISIT FOLLOWING ANY HOSPITAL ADMISSION. PT TO EVALUATE, OBSERVE / ASSESS, AND MONITOR, BATTERY TECHNICIAN TO OBSERVE AND MONITOR, PROVIDE SKILLED THERAPEUTIC INTERVENTION, ACTIVITY, EDUCATION, AND TRAINING TO ADDRESS; PT/BATTERY TECHNICIAN TO PROVIDE GAIT TRAINING FOR IMPROVED MOBILITY AND /OR TO NORMALIZE GAIT PATTERN NEUROMUSCULAR RE-EDUCATION / BALANCE / POSTURAL CONTROL (PT) THERAPEUTIC EXERCISES AND ESTABLISHING A HOME EXERCISE PROGRAM (PT/BATTERY TECHNICIAN) SIT TO/FROM STAND TRANSFERS (PT/BATTERY TECHNICIAN) PT / BATTERY TECHNICIAN TO EDUCATE PATIENT / CAREGIVER ON OXYGEN MANAGEMENT PT / BATTERY TECHNICIAN MAY EDUCATE ON PAIN MANAGEMENT CLINICALLY INDICATED, INCLUDING NON-PHARMACOLOGICAL PAIN REDUCTION TECHNIQUES PT / BATTERY TECHNICIAN TO MONITOR FOR HYPO/HYPERGLYCEMIA AND CONDUCT ROUTINE FOOT INSPECTIONS. RECORD PATIENT REPORTED BLOOD SUGAR LEVELS AND NOTIFY PHYSICIAN AND/OR THE RN CLINICAL PICKING [employer] SUPERVISOR FOR PHYSICIAN NOTIFICATION IF BLOOD SUGAR LEVELS ARE OUTSIDE ORDERED PARAMETERS. TEACH PATIENT/CAREGIVER ON DAILY FOOT INSPECTIONS PT TO ASSESS / BATTERY TECHNICIAN TO MONITOR CARDIO/RESPIRATORY SYSTEM; AND NOTIFY THE PHYSICIAN AND/OR THE RN CLINICAL PICKING [employer] SUPERVISOR FOR PHYSICIAN NOTIFICATION FOR EARLY SIGNS AND SYMPTOMS OF EXACERBATION OR DETERIORATION. PT/BATTERY TECHNICIAN TO IDENTIFY FALL RISK FACTORS; EDUCATE THE PATIENT/CAREGIVER ON WAYS TO REDUCE FALL RISK FACTORS AND ESTABLISH HOME EXERCISE PROGRAM TO MINIMIZE FALL RISK. MAY TEACH THE PATIENT FLOOR RECOVERY WHEN CLINICALLY APPROPRIATE PT TO ASSESS / BATTERY TECHNICIAN TO MONITOR FOR HEART FAILURE EXACERBATION AND RECORD PATIENT REPORTED WEIGHT, AND NOTIFY THE PHYSICIAN AND/OR THE RN CLINICAL PICKING [employer] SUPERVISOR FOR PHYSICIAN NOTIFICATION OF HF EXACERBATION (2LB WEIGHT GAIN IN 1 DAY, 5LBS IN A WEEK OR 5 LBS OVER BASELINE; INCREASED SOB, EDEMA, NEEDING MORE PILLOWS AT NIGHT, CRACKLES IN BASIS OF THE LUNGS OR PMI SHIFT) ] Goal 2024-09-04 Patient Goal - G ET STRENGTH BACK IN HER LEGS Goal Provider Goal - A PLAN OF CARE WILL BE ESTABLISHED THAT MEETS THE PATIENTS NEEDS. PATIENT WILL DEMONSTRATE OXYGEN SATURATION WITHIN NORMAL LIMITS OR PATIENTS OPTIMAL LEVEL ESTABLISHED BY THE PHYSICIAN THROUGHOUT CARE. CHANGES TO CO-MORBID CONDITIONS AND ANY NEW CONDITIONS WILL BE IDENTIFIED AND REPORTED TO THE PHYSICIAN. Goal Provider Goal - PATIENT/CAREGIVER TO VERBALIZE, AND CONSISTENTLY DEMONSTRATE EFFECTIVE, SAFE MANAGEMENT OF MEDICATION INCLUDING KNOWLEDGE OF EFFECTIVENESS, POTENTIAL SIDE EFFECTS AND DRUG REACTIONS AND WHEN TO CONTACT THE APPROPRIATE CARE PROVIDER. PATIENT/CAREGIVER WILL BE ABLE TO VERBALIZE UNDERSTANDING OF MEDICATION REGIMEN AND ACCURATELY TAKE MEDICATIONS PRESCRIBED WITHOUT ADVERSE EFFECTS BY 09/06/24. Goal Provider Goal - PATIENT/CAREGIVER WILL VERBALIZE UNDERSTANDING OF SIGNS AND SYMPTOMS THAT PUT THE PATIENT AT RISK FOR HOSPITALIZATION /EMERGENCY ROOM VISITS, WHEN TO NOTIFY NURSE/PHYSICIAN OF COMPLICATIONS/DECLINE AND WHEN TO CALL 911. Goal Provider Goal - PATIENT / CAREGIVER WILL VERBALIZE/DEMONSTRATE UNDERSTANDING OF MEASURES TO MANAGE ALTERED CARDIOVASCULAR STATUS BY 09/06/24. Goal Provider Goal - PATIENT / CAREGIVER WILL VERBALIZE/DEMONSTRATE AN ABILITY TO ADHERE TO SELF-MANAGEMENT OF HF TO MINIMIZE COMPLICATIONS AND AVOID HOSPITALIZATION BY 09/06/24. Goal Provider Goal - PATIENT / CAREGIVER WILL VERBALIZE/DEMONSTRATE AN ABILITY TO ADHERE TO SELF-MANAGEMENT OF HTN TO MINIMIZE COMPLICATIONS AND AVOID HOSPITALIZATION BY 09/06/24. Goal Provider Goal - PATIENT / CAREGIVER WILL VERBALIZE/DEMONSTRATE UNDERSTANDING OF MEASURES TO MANAGE ALTERED RESPIRATORY STATUS BY 09/06/24. Goal Provider Goal - PATIENT / CAREGIVER WILL VERBALIZE/DEMONSTRATE AN ABILITY TO ADHERE TO SELF-MANAGEMENT OF COPD TO MINIMIZE COMPLICATIONS AND AVOID HOSPITALIZATION BY 09/06/24. Goal Provider Goal - PATIENT/CAREGIVER WILL VERBALIZE/ DEMONSTRATE AN ABILITY TO ADHERE TO SELF-MANAGEMENT OF ASTHMA TO MINIMIZE COMPLICATIONS AND AVOID HOSPITALIZATIONS BY 09/06/24. Goal Provider Goal - PATIENT/CAREGIVER WILL VERBALIZE/DEMONSTRATE UNDERSTANDING OF CARE AND MANAGEMENT OF OXYGEN THERAPY BY 09/06/24. Goal Provider Goal - CHANGES IN SKIN INTEGRITY STATUS WILL BE IDENTIFIED AND REPORTED TO THE PHYSICIAN FOR PROMPT INTERVENTION. PATIENT / CAREGIVER WILL VERBALIZE/DEMONSTRATE ADEQUATE KNOWLEDGE OF INTEGUMENTARY STATUS AND APPROPRIATE MEASURES TO PROMOTE SKIN INTEGRITY AND PREVENT INJURY BY 09/06/24. Goal Provider Goal - PATIENT / CAREGIVER WILL VERBALIZE / DEMONSTRATE UNDERSTANDING OF PAIN CONTROL MEASURES BY 09/06/24. Goal Provider Goal - PATIENT / CAREGIVER WILL VERBALIZE/DEMONSTRATE UNDERSTANDING OF MEASURES TO MANAGE ALTERED GENITOURINARY STATUS BY 09/06/24. Goal Provider Goal - PATIENT/CAREGIVER WILL VERBALIZE/DEMONSTRATE UNDERSTANDING OF CARE AND MANAGEMENT OF URINARY TRACT INFECTION BY 09/06/24. Goal Provider Goal - PATIENT/CAREGIVER WILL VERBALIZE/DEMONSTRATE UNDERSTANDING OF FALL RISK FACTORS AND IMPLEMENT STRATEGIES TO MINIMIZE FALL RISK. PATIENT/CAREGIVER WILL VERBALIZE/DEMONSTRATE AN ABILITY TO ADHERE TO FALL REDUCTION SELF-MANAGEMENT AND LIFE-STYLE CHANGES BY 09/06/24. Goal Provider Goal - PATIENT / CAREGIVER WILL VERBALIZE/DEMONSTRATE UNDERSTANDING OF MEASURES TO MINIMIZE COMPLICATIONS AND REDUCE HOSPITALIZATION RELATED TO CANCER BY 09/06/24. Goal Provider Goal - Goal Provider Goal - Goal Provider Goal - PATIENT / CAREGIVER WILL VERBALIZE / DEMONSTRATE AN ABILITY TO ADHERE TO SELF-MANAGEMENT OF DIABETES MANAGEMENT BY 09/06/24. Goal Provider Goal - PT STG: AMBULATION TO PROGRESS FROM CGA TO SBA AND FROM 20 TO 100FT WITH IMPROVED GAIT PATTERN WITHIN 3 WEEKS. PT LTG: AMB TO PROGRESS TO IND AND SAFE WITH RW ON EVEN AND UNEVEN SURFACES X 300 FT IN ORDER TO SAFELY ACCESS VEHICLE FOR MEDICAL APPTS WITHIN 9 WEEKS. PT LTG: PATIENT WILL DEMONSTRATE REDUCED FALL RISK EVIDENCED BY IMPROVED SELF- SELECTED WALKING SPEED (SSWS CUT SCORE 0.6 TO 0.9 INDICATES MODERATE FALL RISK, 0.6 M/S INDICATES HIGH FALL RISK) FROM 0.4 TO 0.8 M/S WITHIN 9 WEEKS. PT STG: COMPLETE A TUG TEST WITHIN 4 WEEKS. PT STG: IND WITH HEP WITHIN 2 WEEKS. PT STG: LLE TO PROGRESS FROM -3 TO 3/5 WITHIN 4 WEEKS. PT LTG: PATIENT WILL DEMONSTRATE INCREASED STRENGTH OF BILATERAL LOWER EXTREMITIES TO +3/5 THROUGHOUT WITHIN 9 WEEKS IN ORDER TO SAFELY COMPLETE MOBILITY AND ADL'S. PT STG: PATIENT WILL DEMONSTRATE IMPROVED ABILITY TO PERFORM SIT TO/FROM STAND TRANSFERS TO REDUCE THE RISK OF SKIN BREAKDOWN AND REDUCE FALL RISK FROM CGA TO SBA WITHIN 3 WEEKS. PT LTG: TRANSFERS TO PROGRESS TO IND AND SAFE WITHIN 7 WEEKS. PT GOAL: PATIENT/CAREGIVER WILL DEMONSTRATE UNDERSTANDING OF OXYGEN SAFETY, CARE, AND MANAGEMENT BY END OF EPISODE AND PATIENT WILL MAINTAIN SAFE OXYGEN LEVELS DURING ACTIVITY PT GOAL: PATIENT WILL DEMONSTRATE UNDERSTANDING OF PAIN MANAGEMENT TECHNIQUES EVIDENCED BY REDUCED PAIN WITHIN 4 WEEKS. PATIENTS BLOOD SUGAR WILL REMAIN WELL CONTROLLED WITH SELF-MANAGEMENT THROUGHOUT EPISODE OF CARE. PT LTG: PATIENT WILL NOT EXPERIENCE CARDIAC OR RESPIRATORY COMPLICATIONS THROUGHOUT THE EPISODE OF CARE. PT LTG: PATIENT/CAREGIVER WILL DEMONSTRATE ADHERENCE TO FALL REDUCTION SELF-MANAGEMENT AND REDUCING FALL RISK FACTORS TO MINIMIZE FALL RISK BY END OF EPISODE. PT GOAL: PATIENTS HEART FAILURE WILL REMAIN WELL CONTROLLED THROUGHOUT EPISODE OF CARE. Reason for Visit INDEPENDENT IN THE HOME Encounters Start Date/Time End Date/Time Encounter Type Admission Type Attending Clinicians [facility] Facility Care Department Encounter ID Discharge Date Discharge Status Discharge Condition Discharge Reason Percent Goals Met 2024-07-11 00:00:00 2024-09-04 00:00:00 Outpatient NEW ADMISSION [facility] [id number] 2024-09-04 00:00:00 DISCHARGE TO HOME OR SELF CARE [facility]DEPENDEN T IN THE HOME HH - NO LONGER REQUIRES SKILLED CARE 90.70
--- OUTSIDE RECORDS SUMMARY | 2024-09-03 20:00 | XMS_ITS | Clinical Summary ---
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 Active 03-27 00:00: 00 SHELTER (CURRENT) USE OF INHALED STEROIDS Active 03-27 [...] 07-08 00:00: 00 07-18 23:59 :00 No [id number] ANTIBIOTIC 1 tablet DAILY 1 tablet DAILY (route: oral) Med Classific ation: Anti-Infe ctive Agents bisoprolol fumarate 5 mg tablet 06-11 00:00: 00 07-11 00:00 :00 No [id number] Per instruc tions Per instructio ns (route: oral) Med Classific ation: Cardiovas cular Therapy Agents albuterol sulfate HFA 90 mcg/actuati on aerosol inhaler 07-11 00:00: 00 Yes [id number] LUNGS 1 puff EVERY 4 HOURS 1 puff EVERY 4 HOURS (route: inhalation ) Med Classific ation: Respirato ry Therapy Agents atorvastati n 80 mg tablet 07-11 00:00: 00 Yes [id number] CHOLESTEROL 1 tablet DAILY 1 tablet DAILY (route: oral) Med Classific ation: Cardiovas cular Therapy Agents buspirone 10 mg tablet 07-11 00:00: 00 Yes [id number] DEPRESSION 1 tablet 3 TIMES DAILY 1 tablet 3 TIMES DAILY (route: oral) Med Classific ation: Central Nervous System Agents ipratropium 0.5 mg-albutero l 2.5 mg/2.5 mL solution for nebulizatio n 07-11 00:00: 00 Yes [id number] LUNGS 3 mg EVERY 6 HOURS 3 mg EVERY 6 HOURS (route: inhalation ) Med Classific ation: Respirato ry Therapy Agents levothyroxi ne 125 mcg capsule 07-11 00:00: 00 Yes [id number] THYROID 1 capsule DAILY 1 capsule DAILY (route: oral) Med Classific ation: Endocrine montelukast 10 mg tablet 07-11 00:00: 00 Yes [id number] ALLERGIES 1 tablet DAILY 1 tablet DAILY (route: oral) Med Classific ation: Respirato ry Therapy Agents oxycodone 5 mg tablet 07-11 00:00: 00 Yes [id number] PAIN 1 tablet EVERY 6 HOURS 1 tablet EVERY 6 HOURS (route: oral) Med Classific ation: Analgesic , Anti-infl ammatory or Antipyret ic oxygen gas for inhalation 07-11 00:00: 00 Yes [id number] OXYGEN 3.5 Liter O2 - CONTINUOUS 3.5 Liter O2 - CONTINUOUS (route: inhalation ) Med Classific ation: Medical Supplies and Durable Medical Equipment (DME) pantoprazol e 40 mg tablet,chun yed release 07-11 00:00: 00 Yes [id number] REFLUX 1 tablet DAILY 1 tablet DAILY (route: oral) Med Classific ation: Gastroint estinal Therapy Agents potassium chloride ER 20 mEq tablet,exte nded release 07-11 00:00: 00 Yes [id number] SUPPLEMENT 1 tablet DAILY 1 tablet DAILY (route: oral) Med Classific ation: Electroly te Balance-N utritiona l Products Trelegy Ellipta 200 mcg-62.5 mcg-25 mcg powder for inhalation 07-11 00:00: 00 Yes [id number] LUNGS 2 inhalat ion 2 TIMES DAILY 2 inhalation 2 TIMES DAILY (route: inhalation ) Med Classific ation: Respirato ry Therapy Agents venlafaxine 75 mg tablet 07-11 00:00: 00 Yes [id number] DEPRESSION 1 tablet DAILY 1 tablet DAILY [...] LALIT ANSARI. RN TO OBSERVE AND ASSESS, SUPERVISOR MALT HOUSE/SSAS DEVELOPER TO OBSERVE FOR RISK FOR FALLS AND INSTRUCT IN FALL PREVENTION, HOME SAFETY, MEDICATION MANAGEMENT, INFECTION PREVENTION, AND NUTRITION MANAGEMENT. RN/SUPERVISOR MALT HOUSE/SSAS DEVELOPER NURSE MAY PERFORM O2 SATURATION LEVEL ON ADMISSION AND PRN FOR DYSPNEA FOR RN TO ASSESS/SUPERVISOR MALT HOUSE TO OBSERVE PATIENT, WITH NOTIFICATION TO THE PHYSICIAN IF SATURATION IS 90% IN THE ABSENCE OF MORE SPECIFIC PARAMETERS FROM THE PHYSICIAN. AGENCY MAY PERFORM A RESUMPTION OF CARE VISIT FOLLOWING ANY HOSPITAL ADMISSION. RN/SUPERVISOR MALT HOUSE/SSAS DEVELOPER TO MONITOR CO-MORBID CONDITIONS LISTED ON THE PLAN OF CARE AND ANY NEW CONDITIONS THAT PRESENT THEMSELVES DURING THIS EPISODE TO IDENTIFY CHANGES AND INTERVENE TO MINIMIZE COMPLICATIONS. [code = RN TO OBSERVE, ASSESS, EVALUATE, AND DEVELOP AN INDIVIDUALIZED PLAN OF CARE. AGENCY MAY ACCEPT ORDERS FROM CONSULTING PHYSICIANS MAREK DIAS, LALIT AMOS. RN TO OBSERVE AND ASSESS, SUPERVISOR MALT HOUSE/SSAS DEVELOPER TO OBSERVE FOR RISK FOR FALLS AND INSTRUCT IN FALL PREVENTION, HOME SAFETY, MEDICATION MANAGEMENT, INFECTION PREVENTION, AND NUTRITION MANAGEMENT. RN/SUPERVISOR MALT HOUSE/SSAS DEVELOPER NURSE MAY PERFORM O2 SATURATION LEVEL ON ADMISSION AND PRN FOR DYSPNEA FOR RN TO ASSESS/SUPERVISOR MALT HOUSE TO OBSERVE PATIENT, WITH NOTIFICATION TO THE PHYSICIAN IF SATURATION IS 90% IN THE ABSENCE OF MORE SPECIFIC PARAMETERS FROM THE PHYSICIAN. AGENCY MAY PERFORM A RESUMPTION OF CARE VISIT FOLLOWING ANY HOSPITAL ADMISSION. RN/SUPERVISOR MALT HOUSE/SSAS DEVELOPER TO MONITOR CO-MORBID CONDITIONS LISTED ON THE PLAN OF CARE AND ANY NEW CONDITIONS THAT PRESENT THEMSELVES DURING THIS EPISODE TO IDENTIFY CHANGES AND INTERVENE TO MINIMIZE COMPLICATIONS.] Future Scheduled Test MEDICATION MANAGEMENT; RN/SUPERVISOR MALT HOUSE/SSAS DEVELOPER TO REVIEW MEDICATIONS FOR INTERACTIONS, EFFECTIVENESS OF DRUG THERAPY, AND SIGNS/SYMPTOMS OF ADVERSE REACTIONS. MAY INSTRUCT AND REINFORCE MEDICATION TEACHING RELATED TO THE USE OF MEDICATIONS, DOSAGE, FREQUENCY, PURPOSE, SIDE EFFECTS, AND TO REPORT COMPLICATIONS. [code = MEDICATION MANAGEMENT; RN/SUPERVISOR MALT HOUSE/SSAS DEVELOPER TO REVIEW MEDICATIONS FOR INTERACTIONS, EFFECTIVENESS OF DRUG THERAPY, AND SIGNS/SYMPTOMS OF ADVERSE REACTIONS. MAY INSTRUCT AND REINFORCE MEDICATION TEACHING RELATED TO THE USE OF MEDICATIONS, DOSAGE, FREQUENCY, PURPOSE, SIDE EFFECTS, AND TO REPORT COMPLICATIONS.] Future Scheduled Test RISK FOR H OSPITALIZATION; RN TO ASSESS/TEACH, SSAS DEVELOPER/SUPERVISOR MALT HOUSE TO OBSERVE/TEACH PATIENT/CAREGIVER ON RISK FOR HOSPITALIZATION/EMERGENCY ROOM VISITS, TEACH SIGNS AND SYMPTOMS THAT PUT PATIENT AT RISK, WHEN TO NOTIFY NURSE/PHYSICIAN OF COMPLICATIONS/DECLINE, AND WHEN TO CALL 911. [code = RISK FOR HOSPITALIZATION; RN TO ASSESS/TEACH, SSAS DEVELOPER/SUPERVISOR MALT HOUSE TO OBSERVE/TEACH PATIENT/CAREGIVER ON RISK FOR HOSPITALIZATION/EMERGENCY ROOM VISITS, TEACH SIGNS AND SYMPTOMS THAT PUT PATIENT AT RISK, WHEN TO NOTIFY NURSE/PHYSICIAN OF COMPLICATIONS/DECLINE, AND WHEN TO CALL 911.] Future Scheduled Test CARDIOVASC ULAR SYSTEM; RN TO ASSESS/TEACH, SUPERVISOR MALT HOUSE/SSAS DEVELOPER TO OBSERVE/TEACH RELATED TO ALTERED CARDIOVASCULAR STATUS TO MINIMIZE COMPLICATIONS AND REDUCE HOSPITALIZATION. [code = CARDIOVASCULAR SYSTEM; RN TO ASSESS/TEACH, SUPERVISOR MALT HOUSE/SSAS DEVELOPER TO OBSERVE/TEACH RELATED TO ALTERED CARDIOVASCULAR STATUS TO MINIMIZE COMPLICATIONS AND REDUCE HOSPITALIZATION.] Future Scheduled Test HEART FAIL URE; RN TO ASSESS/TEACH, SUPERVISOR MALT [employer]SE/SSAS DEVELOPER TO OBSERVE/TEACH CARDIOPULMONARY SYSTEM TO IDENTIFY SIGNS [...] [code = HEART FAILURE; RN TO ASSESS/TEACH, SUPERVISOR MALT [employer]SE/SSAS DEVELOPER TO OBSERVE/TEACH CARDIOPULMONARY SYSTEM TO IDENTIFY SIGNS [...] ON MANAGEMENT; RN TO ASSESS AND TEACH, SUPERVISOR MALT [employer]SE/SSAS DEVELOPER TO OBSERVE AND TEACH WARNING SIGNS AND SYMPTOMS TO AVOID HOSPITALIZATION. [code = HYPERTENSION MANAGEMENT; RN TO ASSESS AND TEACH, SUPERVISOR MALT [employer]SE/SSAS DEVELOPER TO OBSERVE AND TEACH WARNING SIGNS AND SYMPTOMS TO AVOID HOSPITALIZATION.] Future Scheduled Test RESPIRATOR Y SYSTEM MANAGEMENT; RN TO ASSESS AND TEACH, SUPERVISOR MALT [employer]SE/SSAS DEVELOPER TO OBSERVE AND TEACH RELATED TO ALTERED RESPIRATORY STATUS TO MINIMIZE COMPLICATIONS AND REDUCE HOSPITALIZATION. [code = RESPIRATORY SYSTEM MANAGEMENT; RN TO ASSESS AND TEACH, SUPERVISOR MALT HOUSE/SSAS DEVELOPER TO OBSERVE AND TEACH RELATED TO ALTERED RESPIRATORY STATUS TO MINIMIZE COMPLICATIONS AND REDUCE HOSPITALIZATION.] Future Scheduled Test COPD MANAG EMENT; RN TO ASSESS AND TEACH, SUPERVISOR MALT HOUSE/SSAS DEVELOPER TO OBSERVE AND TEACH SIGNS/SYMPTOMS OF COPD EXACERBATION AND PROVIDE EARLY INTERVENTIONS TO MINIMIZE RISK OF HOSPITALIZATION. RN/SUPERVISOR MALT HOUSE/SSAS DEVELOPER TO INSTRUCT ON SELF-CARE MANAGEMENT INCLUDING BREATHING TECHNIQUES, AIRWAY CLEARANCE, AND PROPER USE OF COPD MEDICATIONS. RN TO ASSESS AND TEACH, SUPERVISOR MALT [employer]SE/SSAS DEVELOPER TO OBSERVE AND TEACH PATIENT/CAREGIVER ABILITY TO MONITOR AND RECORD VITAL SIGNS INCLUDING PULSE OXIMETRY AND BLOOD PRESSURE. PULSE OXIMETER AND BP MONITOR TO BE PROVIDED IF NEEDED [code = COPD MANAGEMENT; RN TO ASSESS AND TEACH, SUPERVISOR MALT HOUSE/SSAS DEVELOPER TO OBSERVE AND TEACH SIGNS/SYMPTOMS OF COPD EXACERBATION AND PROVIDE EARLY INTERVENTIONS TO MINIMIZE RISK OF HOSPITALIZATION. RN/SUPERVISOR MALT HOUSE/SSAS DEVELOPER TO INSTRUCT ON SELF-CARE MANAGEMENT INCLUDING BREATHING TECHNIQUES, AIRWAY CLEARANCE, AND PROPER USE OF COPD MEDICATIONS. RN TO ASSESS AND TEACH, SUPERVISOR MALT HOUSE/SSAS DEVELOPER TO OBSERVE AND TEACH PATIENT/CAREGIVER ABILITY TO MONITOR AND RECORD VITAL SIGNS INCLUDING PULSE OXIMETRY AND BLOOD PRESSURE. PULSE OXIMETER AND BP MONITOR TO BE PROVIDED IF NEEDED ] Future Scheduled Test ASTHMA MAN AGEMENT; RN TO ASSESS AND TEACH, SUPERVISOR MALT HOUSE/SSAS DEVELOPER TO OBSERVE AND TEACH ASTHMA MANAGEMENT AND PROVIDE EARLY INTERVENTIONS TO MINIMIZE RISK OF HOSPITALIZATION [code = ASTHMA MANAGEMENT; RN TO ASSESS AND TEACH, SUPERVISOR MALT HOUSE/SSAS DEVELOPER TO OBSERVE AND TEACH ASTHMA MANAGEMENT AND PROVIDE EARLY INTERVENTIONS TO MINIMIZE RISK OF HOSPITALIZATION] Future Scheduled Test OXYGEN THE RAPY; RN/SUPERVISOR MALT HOUSE/SSAS DEVELOPER TO INSTRUCT ON OXYGEN MANAGEMENT INCLUDING: ADMINISTRATION AT 3.5L/MIN VIA NC CONTINUOUS, CARE OF EQUIPMENT AND SAFETY. [code = OXYGEN THERAPY; RN/SUPERVISOR MALT HOUSE/SSAS DEVELOPER TO INSTRUCT ON OXYGEN MANAGEMENT INCLUDING: ADMINISTRATION AT 3.5L/MIN VIA NC CONTINUOUS, CARE OF EQUIPMENT AND SAFETY.] Future Scheduled Test SKIN INTEG RITY RN TO ASSESS AND TEACH, SUPERVISOR MALT HOUSE/SSAS DEVELOPER TO OBSERVE AND TEACH INTEGUMENTARY STATUS TO IDENTIFY CHANGES AND INTERVENE TO MINIMIZE COMPLICATIONS. PROVIDE SKILLED TEACHING OF GENERAL WOUND AND SKIN CARE AND PREVENTION RELATED TO POTENTIAL FOR OR ACTUAL ALTERED SKIN INTEGRITY [code = SKIN INTEGRITY RN TO ASSESS AND TEACH, SUPERVISOR MALT HOUSE/SSAS DEVELOPER TO OBSERVE AND TEACH INTEGUMENTARY STATUS TO IDENTIFY CHANGES AND INTERVENE TO MINIMIZE COMPLICATIONS. PROVIDE SKILLED TEACHING OF GENERAL WOUND AND SKIN CARE AND PREVENTION RELATED TO POTENTIAL FOR OR ACTUAL ALTERED SKIN INTEGRITY ] Future Scheduled Test PAIN MANAG EMENT; RN TO ASSESS AND TEACH, SSAS DEVELOPER/SUPERVISOR MALT HOUSE TO OBSERVE AND TEACH AND PROVIDE EDUCATION ON PAIN MANAGEMENT TECHNIQUES. [code = PAIN MANAGEMENT; RN TO ASSESS AND TEACH, SSAS DEVELOPER/SUPERVISOR MALT HOUSE TO OBSERVE AND TEACH AND PROVIDE EDUCATION ON PAIN MANAGEMENT TECHNIQUES.] Future Scheduled Test GENITOURIN VAMSHI MANAGEMENT; RN TO ASSESS AND TEACH, SUPERVISOR MALT HOUSE/SSAS DEVELOPER TO OBSERVE AND TEACH RELATED TO ALTERED GENITOURINARY STATUS TO MINIMIZE COMPLICATIONS AND REDUCE HOSPITALIZATION. [code = GENITOURINARY MANAGEMENT; RN TO ASSESS AND TEACH, SUPERVISOR MALT HOUSE/SSAS DEVELOPER TO OBSERVE AND TEACH RELATED TO ALTERED GENITOURINARY STATUS TO MINIMIZE COMPLICATIONS AND REDUCE HOSPITALIZATION.] Future Scheduled Test URINARY TR ACT INFECTION MANAGEMENT; RN/SSAS DEVELOPER/SUPERVISOR MALT HOUSE TO PROVIDE SKILLED TEACHING AND SELF- CARE MANAGEMENT RELATED TO UTI TO MINIMIZE COMPLICATIONS AND REDUCE THE RISK OF HOSPITALIZATION. [code = URINARY TRACT INFECTION MANAGEMENT; RN/SSAS DEVELOPER/SUPERVISOR MALT HOUSE TO PROVIDE SKILLED TEACHING AND SELF- CARE MANAGEMENT RELATED TO UTI TO MINIMIZE COMPLICATIONS AND REDUCE THE RISK OF HOSPITALIZATION.] Future Scheduled Test FALL REDUC TION MANAGEMENT; RN TO ASSESS AND OBSERVE, SUPERVISOR MALT HOUSE/SSAS DEVELOPER TO OBSERVE FALL RISK FACTORS AND EDUCATE PATIENT/CAREGIVER ON STRATEGIES TO MINIMIZE THE RISK OF FALLING. [code = FALL REDUCTION MANAGEMENT; RN TO ASSESS AND OBSERVE, SUPERVISOR MALT HOUSE/SSAS DEVELOPER TO OBSERVE FALL RISK FACTORS AND EDUCATE PATIENT/CAREGIVER ON STRATEGIES TO MINIMIZE THE RISK OF FALLING.] Future Scheduled Test CANCER MAN AGEMENT; RN TO ASSESS AND TEACH, SSAS DEVELOPER/SUPERVISOR MALT HOUSE TO OBSERVE AND TEACH AND PROVIDE EDUCATION ON CANCER. [code = CANCER MANAGEMENT; RN TO ASSESS AND TEACH, SSAS DEVELOPER/SUPERVISOR MALT HOUSE TO OBSERVE AND TEACH AND PROVIDE EDUCATION ON CANCER.] Future Scheduled Test PRN VISITS ; NUMBER OF RN/SUPERVISOR MALT HOUSE/SSAS DEVELOPER VISITS: 2 RN/SUPERVISOR MALT HOUSE/SSAS DEVELOPER TO PERFORM: CARDIOPULMONARY STATUS FOR THE FOLLOWING REASONS: WEIGHT GAIN, SWELLING, INCREASED SHORTNESS OF BREATH, COUGH, FEVER, CONFUSION, [code = PRN VISITS; NUMBER OF RN/SUPERVISOR MALT HOUSE/SSAS DEVELOPER VISITS: 2 RN/SUPERVISOR MALT HOUSE/SSAS DEVELOPER TO PERFORM: CARDIOPULMONARY STATUS FOR THE FOLLOWING REASONS: WEIGHT GAIN, SWELLING, INCREASED SHORTNESS OF BREATH, COUGH, FEVER, CONFUSION, ] Future Scheduled Test PHYSICAL T HERAPIST TO EVALUATE FOR GAIT ENDURANCE STRENGTH [code = PHYSICAL THERAPIST TO EVALUATE FOR GAIT ENDURANCE STRENGTH ] Future Scheduled Test DIABETES M ANAGEMENT; RN TO ASSESS AND TEACH, SSAS DEVELOPER/SUPERVISOR MALT HOUSE TO OBSERVE AND TEACH INSTRUCTIONS OF DIABETIC CARE TO INCLUDE: DIET LOW CARB, SKIN CARE, SIGNS AND SYMPTOMS OF HYPO/HYPERGLYCEMIA, PROPER ADMINISTRATION OF DIABETIC MEDICATION. RN/SSAS DEVELOPER/SUPERVISOR MALT HOUSE TO INSTRUCT ON DIABETIC FOOT CARE AND MONITOR FOR SKIN LESIONS ON LOWER EXTREMITIES. BLOOD GLUCOSE TESTING PRN FREQ. RN TO ASSESS AND TEACH, SSAS DEVELOPER/SUPERVISOR MALT HOUSE TO OBSERVE AND TEACH PATIENT/CAREGIVER ABILITY TO PERFORM AND RECORD BLOOD GLUCOSE TESTING ORDERED AND TO REPORT ABNORMAL FINDINGS TO PHYSICIAN. RN/SSAS DEVELOPER/SUPERVISOR MALT HOUSE MAY PERFORM BLOOD GLUCOSE TEST NEEDED. RN/SSAS DEVELOPER/SUPERVISOR MALT HOUSE TO REPORT TO PHYSICIAN BLOOD GLUCOSE READINGS GREATER THAN 400 OR LESS THAN 60 RN/SSAS DEVELOPER/SUPERVISOR MALT HOUSE TO INSTRUCT PATIENT ON IMPORTANCE OF HGBA1C MONITORING, KIDNEY FUNCTION TEST, EYE AND FOOT EXAMS. [code = DIABETES MANAGEMENT; RN TO ASSESS AND TEACH, SSAS DEVELOPER/SUPERVISOR MALT HOUSE TO OBSERVE AND TEACH INSTRUCTIONS OF DIABETIC CARE TO INCLUDE: DIET LOW CARB, SKIN CARE, SIGNS AND SYMPTOMS OF HYPO/HYPERGLYCEMIA, PROPER ADMINISTRATION OF DIABETIC MEDICATION. RN/SSAS DEVELOPER/SUPERVISOR MALT HOUSE TO INSTRUCT ON DIABETIC FOOT CARE AND MONITOR FOR SKIN LESIONS ON LOWER EXTREMITIES. BLOOD GLUCOSE TESTING PRN FREQ. RN TO ASSESS AND TEACH, SSAS DEVELOPER/SUPERVISOR MALT HOUSE TO OBSERVE AND TEACH PATIENT/CAREGIVER ABILITY TO PERFORM AND RECORD BLOOD GLUCOSE TESTING ORDERED AND TO REPORT ABNORMAL FINDINGS TO PHYSICIAN. RN/SSAS DEVELOPER/SUPERVISOR MALT HOUSE MAY PERFORM BLOOD GLUCOSE TEST NEEDED. RN/SSAS DEVELOPER/SUPERVISOR MALT HOUSE TO REPORT TO PHYSICIAN BLOOD GLUCOSE READINGS GREATER THAN 400 OR LESS THAN 60 RN/SSAS DEVELOPER/SUPERVISOR MALT HOUSE TO INSTRUCT PATIENT ON IMPORTANCE OF HGBA1C MONITORING, KIDNEY FUNCTION TEST, EYE AND FOOT EXAMS.] Future Scheduled Test AGENCY MAY PERFORM A RESUMPTION OF CARE VISIT FOLLOWING ANY HOSPITAL ADMISSION. PT TO EVALUATE, OBSERVE / ASSESS, AND MONITOR, WASH OIL COOLER OPERATOR TO OBSERVE AND MONITOR, PROVIDE SKILLED THERAPEUTIC INTERVENTION, ACTIVITY, EDUCATION, AND TRAINING TO ADDRESS; PT/WASH OIL COOLER OPERATOR TO PROVIDE GAIT TRAINING FOR IMPROVED MOBILITY AND /OR TO NORMALIZE GAIT PATTERN NEUROMUSCULAR RE-EDUCATION / BALANCE / POSTURAL CONTROL (PT) THERAPEUTIC EXERCISES AND ESTABLISHING A HOME EXERCISE PROGRAM (PT/WASH OIL COOLER OPERATOR) SIT TO/FROM STAND TRANSFERS (PT/WASH OIL COOLER OPERATOR) PT / WASH OIL COOLER OPERATOR TO EDUCATE PATIENT / CAREGIVER ON OXYGEN MANAGEMENT PT / WASH OIL COOLER OPERATOR MAY EDUCATE ON PAIN MANAGEMENT CLINICALLY INDICATED, INCLUDING NON-PHARMACOLOGICAL PAIN REDUCTION TECHNIQUES PT / WASH OIL COOLER OPERATOR TO MONITOR FOR HYPO/HYPERGLYCEMIA AND CONDUCT ROUTINE FOOT INSPECTIONS. RECORD PATIENT REPORTED BLOOD SUGAR LEVELS AND NOTIFY PHYSICIAN AND/OR THE RN CLINICAL COMMERCIAL CARPENTER FOR PHYSICIAN NOTIFICATION IF BLOOD SUGAR LEVELS ARE OUTSIDE ORDERED PARAMETERS. TEACH PATIENT/CAREGIVER ON DAILY FOOT INSPECTIONS PT TO ASSESS / WASH OIL COOLER OPERATOR TO MONITOR CARDIO/RESPIRATORY SYSTEM; AND NOTIFY THE PHYSICIAN AND/OR THE RN CLINICAL COMMERCIAL CARPENTER FOR PHYSICIAN NOTIFICATION FOR EARLY SIGNS AND SYMPTOMS OF EXACERBATION OR DETERIORATION. PT/WASH OIL COOLER OPERATOR TO IDENTIFY FALL RISK FACTORS; EDUCATE THE PATIENT/CAREGIVER ON WAYS TO REDUCE FALL RISK FACTORS AND ESTABLISH HOME EXERCISE PROGRAM TO MINIMIZE FALL RISK. MAY TEACH THE PATIENT FLOOR RECOVERY WHEN CLINICALLY APPROPRIATE PT TO ASSESS / WASH OIL COOLER OPERATOR TO MONITOR FOR HEART FAILURE EXACERBATION AND RECORD PATIENT REPORTED WEIGHT, AND NOTIFY THE PHYSICIAN AND/OR THE RN CLINICAL COMMERCIAL CARPENTER FOR PHYSICIAN NOTIFICATION OF HF EXACERBATION (2LB WEIGHT GAIN IN 1 DAY, 5LBS IN A WEEK OR 5 LBS OVER BASELINE; INCREASED SOB, EDEMA, NEEDING MORE PILLOWS AT NIGHT, CRACKLES IN BASIS OF THE LUNGS OR PMI SHIFT) [code = AGENCY MAY PERFORM A RESUMPTION OF CARE VISIT FOLLOWING ANY HOSPITAL ADMISSION. PT TO EVALUATE, OBSERVE / ASSESS, AND MONITOR, WASH OIL COOLER OPERATOR TO OBSERVE AND MONITOR, PROVIDE SKILLED THERAPEUTIC INTERVENTION, ACTIVITY, EDUCATION, AND TRAINING TO ADDRESS; PT/WASH OIL COOLER OPERATOR TO PROVIDE GAIT TRAINING FOR IMPROVED MOBILITY AND /OR TO NORMALIZE GAIT PATTERN NEUROMUSCULAR RE-EDUCATION / BALANCE / POSTURAL CONTROL (PT) THERAPEUTIC EXERCISES AND ESTABLISHING A HOME EXERCISE PROGRAM (PT/WASH OIL COOLER OPERATOR) SIT TO/FROM STAND TRANSFERS (PT/WASH OIL COOLER OPERATOR) PT / WASH OIL COOLER OPERATOR TO EDUCATE PATIENT / CAREGIVER ON OXYGEN MANAGEMENT PT / WASH OIL COOLER OPERATOR MAY EDUCATE ON PAIN MANAGEMENT CLINICALLY INDICATED, INCLUDING NON-PHARMACOLOGICAL PAIN REDUCTION TECHNIQUES PT / WASH OIL COOLER OPERATOR TO MONITOR FOR HYPO/HYPERGLYCEMIA AND CONDUCT ROUTINE FOOT INSPECTIONS. RECORD PATIENT REPORTED BLOOD SUGAR LEVELS AND NOTIFY PHYSICIAN AND/OR THE RN CLINICAL COMMERCIAL CARPENTER FOR PHYSICIAN NOTIFICATION IF BLOOD SUGAR LEVELS ARE OUTSIDE ORDERED PARAMETERS. TEACH PATIENT/CAREGIVER ON DAILY FOOT INSPECTIONS PT TO ASSESS / WASH OIL COOLER OPERATOR TO MONITOR CARDIO/RESPIRATORY SYSTEM; AND NOTIFY THE PHYSICIAN AND/OR THE RN CLINICAL COMMERCIAL CARPENTER FOR PHYSICIAN NOTIFICATION FOR EARLY SIGNS AND SYMPTOMS OF EXACERBATION OR DETERIORATION. PT/WASH OIL COOLER OPERATOR TO IDENTIFY FALL RISK FACTORS; EDUCATE THE PATIENT/CAREGIVER ON WAYS TO REDUCE FALL RISK FACTORS AND ESTABLISH HOME EXERCISE PROGRAM TO MINIMIZE FALL RISK. MAY TEACH THE PATIENT FLOOR RECOVERY WHEN CLINICALLY APPROPRIATE PT TO ASSESS / WASH OIL COOLER OPERATOR TO MONITOR FOR HEART FAILURE EXACERBATION AND RECORD PATIENT REPORTED WEIGHT, AND NOTIFY THE PHYSICIAN AND/OR THE RN CLINICAL COMMERCIAL CARPENTER FOR PHYSICIAN NOTIFICATION OF HF EXACERBATION (2LB [...] Date/Time Encounter Type Admission Type Attending Clinicians [facility] Facility Care Department Encounter ID Discharge Date Discharge Status Discharge Condition Discharge Reason Percent Goals Met 2024-07-11 00:00:00 2024-09-04 00:00:00 Outpatient NEW ADMISSION DIONISIOOCTAV[facility] [id number] 2024-09-04 00:00:00 DISCHARGE TO HOME OR SELF CARE INDEPENDEN T IN THE HOME HH - NO LONGER REQUIRES SKILLED CARE 90.70
--- OUTSIDE RECORDS SUMMARY | 2024-10-10 12:27 | XMS_ITS ---
Author Organization Healthcare Address [address] [place] [address] Care Team Providers Care Supervisor Laboratory Name Role Phone Mango Albert MD Primary Care Provider [phone] Active Problems Problem Noted Date Diagnosed Date [...]
--- OUTSIDE RECORDS SUMMARY | 2024-10-10 12:28 | XMS_ITS | Patient Health Record ---
Author Organization [facility] Address [address] [facility] [address] [facility] [address] [place] [address] Care Team Providers Care Silverware Etcher Name Role Phone Mango Albert Primary Care Provider Aubrie Garza Unavailable [phone] Migration, Provider Unavailable Unavailable Allergies Allergen (clinical [...] review and pick correct strength-formulatio n from Media [employer]efined[employer] options. If intended option is not shown, [...] Immunizations Vaccine Route Administration Date Status Comme nts Flublok IM Intramuscular 11/26/2019 Administered Flublok IM Intramuscular 02/26/2021 Administered FLUZONE 6MO - OLDER IM Intramuscular 12/20/2018 Administer ed Influenza (Fluzone)--Medicare only IM Intramuscular 12/22/2015 Administered Pneumovax 23 IM Intramuscular 12/22/2015 Administered Prevnar PCV-13 (Pneumococcal conjugate 13) IM Intramuscular 04/10/2017 Administered Social History Tobacco Use: Social History [...] complication (E11.69) Active confirmed Problem Mixed hyperlipidemia (077272166) Mixed hyperlipidemia (E78.2) Active confirmed Problem Hypomagnesemia (407810976) Hypomagnesemia (E83.42) Active confirmed Problem Obstructive sleep apnea syndrome (disorder) (95259592) Obstructive sleep apnea (adult) (pediatric) (G47.33) Active confirmed Problem Essential hypertension (98660637) Essential (primary) hypertension (I10) Active confirmed Problem Mucopurulent chronic bronchitis (26988551) Mucopurulent chronic bronchitis (J41.1) Active confirmed Problem Hvzrx-cu-ebjvgeb hypoxemic respiratory failure (95847351620007790) Acute and chronic respiratory failure with hypoxia (J96.21) Active confirmed Problem Nicotine dependence (81199057) Personal history of nicotine dependence (Z87.891) Active confirmed Problem Mixed anxiety and depressive disorder (735215926) Depression with anxiety (F41.8) Active confirmed Problem Gastroesophageal reflux disease (565664598) GERD without esophagitis (K21.9) Active confirmed Problem Tobacco abuse (2564347971) Tobacco abuse (Z72.0) Active confirmed Problem Acute exacerbation o f chronic obstructive airways disease (074651299) COPD exacerbation (J44.1) Active confirmed Problem Obese class II (900397023457325) BMI 39.0-39.9,adult (Z68.39) Active confirmed Problem Gastroesophageal reflux disease with esophagitis (disorder) (496542886) GERD with esophagitis (K21.0) Active confirmed Problem COPD - Chronic obstructive pulmonary disease (06257495) Chronic obstructive pulmonary disease, unspecified COPD type (J44.9) Active confirmed Problem Acquired hypothyroidism (484198706) Acquired hypothyroidism (E03.9) Active confirmed Problem Morbid obesity (945788980) Morbid obesity due to excess calories (E66.01) Active confirmed Problem Insomnia disorder related to another mental disorder (48434711) Psychophysiological insomnia (F51.04) Active confirmed Problem Body mass index 40+ - severely obese (275191764) Body mass index (BMI) of 40.1-44.9 in adult (Z68.41) Active confirmed Problem Pulmonary nodule (528394993) Pulmonary nodule (R91.1) Active confirmed Problem Dysphagia (96214603) Dysphagia, unspecified type (R13.10) Active confirmed Problem Obstructive sleep apnea syndrome (81998137) DANNY on CPAP (G47.33) Active confirmed Problem Familial hypercholesterolemia (687985848) Familial hypercholesterolemia (E78.01) Active confirmed Problem Tobacco use (460532998) Tobacco use disorder (F17.200) Active confirmed Problem Acute exacerbation o f chronic obstructive airways disease (125326578) Acute exacerbation of chronic obstructive pulmonary disease (COPD) (J44.1) Active confirmed Problem Chronic obstructive lung disease co-occurrent with acute bronchitis (711491830386335) Acute bronchitis with chronic obstructive pulmonary disease (COPD) (J44.0) Active confirmed Problem Recurrent major depression (28618466) Major depressive disorder, recurrent episode with anxious distress (F33.9) Active confirmed Problem Small cell lung cancer (931738659) Small cell lung cancer (C34.90) Active confirmed Problem Metastasis to brain (36038505) Metastasis to brain (C79.31) Active confirmed Vital Signs Heart Rate 88 /min 07/22/2024 Temperature 97.6 degrees Fahrenheit 07/22/2024 Blood pressure diastolic 72 mm Hg 07/22/2024 Height 5 ft 5 in in 07/22/2024 Blood pressure systolic 126 mm Hg 07/22/2024 Weight 193 lbs 07/22/2024 BMI 32.11 kg/m2 07/22/2024 Encounters Encounter Location Date Provider Diagnosis [facility] [address] [facility] [address] [place] [address] 06/29/2024 Provider Migration Depression with anxiety F41.8 ; Major depressive disorder, recurrent episode with anxious distress F33.9 and Sore throat J02.9 [facility] [address] [address] 07/22/2024 Aubrie McZoees Small cell lung canc er C34.90 ; Encounter for Medicare annual wellness exam Z00.00 ; Metastasis to brain C79.31 ; Depression with anxiety F41.8 ; Type 2 diabetes mellitus with other specified complication E11.69 ; Hyponatremia E87.1 ; Hypomagnesemia E83.42 ; Acquired hypothyroidism E03.9 ; Mixed hyperlipidemia E78.2 ; Obstructive sleep apnea (adult) (pediatric) G47.33 and Essential (primary) hypertension I10 [facility] [address] [place] [address] [facility] [address] [place] [address] 10/11/2023 Mango Albert [facility] [address] [place] [address] 10/17/2023 Aubrie McNees [facility] [address] [place], [place] [address] 10/31/2023 Aubrie McNees [facility] [address] [place] [address] 12/06/2023 Aubrie McNees [facility] [address] [place] [address] 12/25/2023 Mango Beskashmir Major depressive disorder, recurrent episode with anxious distress F33.9 [facility] [address], [place] [address] 12/25/2023 Aubrie McNees [facility] [address] [place] [address] 07/09/2024 Mango Besson [facility] [address] [place] [address] 07/22/2024 Aubrie McNees [facility] [address] [place] [address] 07/22/2024 Mango Albert Assessments Encounter Date Diagnosis (ICD Code) Assessment [...] she stopped her venalafaxine after discharge from [facility] due to confusion from d/c medication [...] 12/22/2015 H-LIPID PANEL 06/19/2014 H-TSH 06/23/2014 C-CMP 05/01/2020 C-CMP 05/07/2013 C-CMP 09/05/2016 C-CMP 06/24/2013 C-LIPID PANEL 05/07/2013 C-LIPID PANEL 09/05/2016 C-LIPID PANEL 06/24/2013 C-LIPID PANEL 05/01/2020 C-TSH 08/17/2015 C-TSH 06/24/2013 C-TSH 05/07/2013 C-TSH 09/05/2016 C-HGBA1C 09/05/2016 C-HGBA1C 07/01/2013 M-Comprehensive Metabolic Panel 07/23/19 25 M-Comprehensive Metabolic Panel 09/04/19 22 M-Comprehensive Metabolic Panel 11/23/19 19 M-Hemoglobin A1C 11/22/2018 M-Hemoglobin A1C 07/22/2024 M-Hemoglobin A1C 09/03/2021 M-Magnesium 07/22/2024 M-Lipid Panel 09/03/2021 M-Lipid Panel 11/22/2018 M-Thyroid Stimulating Hormone 11/22/2018 M-Thyroid Stimulating Hormone 09/03/2021 Insurance Providers Payer Name Payer Address Payer Phone Subscriber Number Group Number Insured Name Patient Relationship to Insured Coverage Start Date Coverage End Date [place] [address] [place] [address] [id number] Shantal Stanford Self - patient is the insured [facility] [address] [place] [address] [id number] Shantal Stanford Self - patient is the insured [employer] [address] [place] [address] ACL Shantal Stanford Self - patient is [...] 08/20/23 Hospitalization History Reason Date(Month/Year) [facility] Pneumonia 07/11- [place] - stage 4 cancer 08/17-09/05/2023 rhinovirus 03/2020 [facility]-pneumonia 03/2019 pneumonia 03/2015 COPD 2013 above
--- OUTSIDE RECORDS SUMMARY | 2024-10-10 12:28 | XMS_ITS | Data Portability ---
Author Organization [place] - [facility] Address [address] [place] [address] Care Team Providers Care Cart Pusher Name Role Phone LALIT PAINTER Referring Provider [...] be scheduled on or around 05/02/20242024 025 [facility], [address] [facility] [address], [place], [address], 10:17:19 Medication Orders None recorded. Patient TargetsNo targets recorded. Patient InstructionsNo instructions recorded. Reason for Referral None Reported. Results Created Date Observation Date Name Description Value Unit Range Abnormal Flag Note LastModifiedBy Organization Detail LastModifiedTime 01/10/20 24 12/14/2023 MRI, brain + brain stem, w/ contr ast No observ ation record ed. [facility] [place] [facility] [address], [place], [address], 01/10/2024 14:01:21 04/16/19 25 03/15/2024 MRI, brain , w/wo contr ast No observ ation record ed. [email or web address] Not Available 03/28 09:44:05 05/24/19 25 04/29/2024 MRI, brain , w/wo contr ast No observ ation record ed. [facility] [place] [address] [facility] [address], [place], [address], 05/27/2024 07:48:22 07/19/19 25 07/16/2024 MRI, brain , w/wo contr ast No observ ation record ed. [address], [place], [address], 07/18/2024 11:24:43 Result Notes None recorded. Problems Name Problem SNOMED Code Status Onset Date Resolution Date Notes Provider Name and Address Organization Details Recorded Time Small cell carcinoma of lung 632405104 Active 024 [place] Ace[place] - [place] & [place] 4 09:44:19 Metastatic malignant neoplasm to brain 25806557 Active 024 [place] Acevedo [facility] & [place] 4 09:44:41 Acute mucositis 804040702 Active 024 [place] [facility] & [place] 4 13:51:43 Problem Notes None recorded. Procedures Surgical History Date Name Laterality Status Provider Name and Address Organization Details Recorded Time 08/31/19 24 endoscopic endobronchial ultrasonography guided transbronchial needle aspiration of mediastinal lymph node completed Fatoumata VÁZQUEZ [facility] & [place] 09/08/2023 10:42:33 08/21/19 24 craniotomy completed Fatoumata VÁZQUEZ [facility] & [place] 09/08/2023 10:42:09 Carpal tunnel surgery completed Fatoumata VÁZQUEZ [facility] & [place] 09/08/2023 10:41:49 Imaging Results None recorded. Procedure Notes None recorded. Medical Equipment None Reported. Allergies Allergen ID Allergen Name Allergen Category Reaction Reaction Severity Criticality Documentation Date Start Date Code Code System Note Provider Name and Address Organization Details Recorded Time 253835 Product containin g penicilli n (product) medicatio n Not available Not available Not available 09/08/2023 29637 8001 SNOMED [place] Acevedo [facility] & [place] 4 13:53:29 495431 Keflex medicatio n Not available Not available Not available 09/08/2023 25019 7 RxNorm [place] [facility] & [place] 4 10:54:06 Medications Name Sig Start Date [...] Address Organization Details Last Updated DateTime 5 55181.2 2 g 97.3 [degF] 95 % 95 % 87 /min 19 /min 154/72 mm[Hg] Fatoumata VÁZQUEZ - [facility] 5 12:14:43 Date Recorded Body weight Body temperature Oxygen saturation Oxygen saturation in Arterial blood by Pulse oximetry Inhaled oxygen flow rate Heart rate Respiratory rate Systolic And Diastolic Provider Name and Address Organization Details Last Updated DateTime 5 95016.3 g 97.2 [degF] 95 % 95 % 3 L/min 84 /min 19 /min 143/69 mm[Hg] Fatoumata VÁZQUEZ [facility] 5 13:51:00 Date Recorded Body weight Body temperature Oxygen saturation Oxygen saturation in Arterial blood by Pulse oximetry Heart rate Respiratory rate Systolic And Diastolic Provider Name and Address Organization Details Last Updated DateTime 4 196903. 68 g 97.5 [degF] 98 % 98 % 96 /min 19 /min 125/67 mm[Hg] Fatoumata Ron LPNT [facility] & [place] 4 13:28:04 Date Recorded Body temperature Oxygen saturation Oxygen saturation in Arterial blood by Pulse oximetry Inhaled oxygen flow rate Heart rate Respiratory rate Systolic And Diastolic Provider Name and Address Organization Details Last Updated DateTime 4 97 [degF] 99 % 99 % 3 L/min 82 /min 20 /min 125/68 mm[Hg] Fatoumata PEÑA KATHIE [facility] & [place] 4 13:52:57 Social History Question Answer Notes LastModified by [employer] Details LastModified Time Tobacco Smoking Status Former Smoker Fatoumata Lozada [facility], [place] [facility] [place] 09/08/2023 10:41:23 When Did You Quit Smoking? [...] Status Question Answer Note LastModified by Organizat Wash[employer] Details LastModified Time Do you or have [...] SNOMED-CT Code Diagnosis ICD10 Code Diagnosis Note [id number] Renetta Lawson MD [facility] [place] [address] 8 09/08/2023 09:37:05 09/08/2023 10:46:00 Small cell carcinoma of lung 229156386 C34.90 Metastatic malignant neoplasm to brain 11616948 C79.31 [id number] Renetta Lawson MD [place] [address] 8 09/13/2023 13:19:24 09/13/2023 15:32:20 Metastatic malignant neoplasm to brain 97793739 C79.31 Small cell carcinoma of lung 847065416 C34.90 [id number] Renetta Lawson MD [place] [address] 8 09/19/2023 13:36:21 09/19/2023 14:37:37 Small cell carcinoma of lung 829998032 C34.90 Metastatic malignant neoplasm to brain 52843027 C79.31 [id number] Renetta Lawson MD [place] [address] 8 09/20/2023 13:28:45 09/20/2023 14:17:44 Metastatic malignant neoplasm to brain 01109201 C79.31 Small cell carcinoma of lung 978458246 C34.90 [id number] Renetta Lawson MD [place] [address] 8 09/21/2023 13:39:23 09/21/2023 14:06:20 Small cell carcinoma of lung 873572045 C34.90 Metastatic malignant neoplasm to brain 53595862 C79.31 [id number] Renetta Lawson MD [place] [address] 8 09/24/2023 10:05:25 09/24/2023 10:59:16 Metastatic malignant neoplasm to brain 18107203 C79.31 Small cell carcinoma of lung 517995853 C34.90 [id number] Renetta Lawson MD [place] [address] 8 09/25/2023 08:19:34 09/25/2023 09:39:32 Small cell carcinoma of lung 454826255 C34.90 Metastatic malignant neoplasm to brain 58590511 C79.31 [id number] Renetta Lawson MD [place] [address] 8 09/22/2023 10:50:20 09/22/2023 11:24:40 Metastatic malignant neoplasm to brain 32479433 C79.31 [id number] Renetta Lawson MD [place] [address] 8 09/26/2023 08:24:03 09/26/2023 09:27:30 Metastatic malignant neoplasm to brain 77688472 C79.31 Small cell carcinoma of lung 140299357 C34.90 [id number] Renetta Lawson MD [place] [address] 8 09/27/2023 08:12:42 09/27/2023 11:08:08 Small cell carcinoma of lung 865032005 C34.90 Metastatic malignant neoplasm to brain 44288540 C79.31 [id number] Renetta Lawson MD [place] [address] 8 10/02/2023 13:36:53 10/02/2023 14:14:11 Small cell carcinoma of lung 208939875 C34.90 Metastatic malignant neoplasm to brain 62521317 C79.31 Acute mucositis 28892169 8 K12.30 [id number] Renetta Lawson MD [place] [address] 8 10/03/2023 13:36:12 10/03/2023 15:41:36 Small cell carcinoma of lung 408842054 C34.90 Metastatic malignant neoplasm to brain 49550728 C79.31 [id number] Renetta Lawson MD [place] [address] 8 11/06/2023 13:00:38 11/06/2023 14:00:15 Small cell carcinoma of lung 181705366 C34.90 Metastatic malignant neoplasm to brain 60581185 C79.31 [id number] Renetta Lawson MD [place] [address] 8 01/10/2024 13:38:12 01/10/2024 15:03:23 Metastatic malignant neoplasm to brain 74714479 C79.31 Small cell carcinoma of lung 187325690 C34.90 [id number] Renetta Lawson MD [place] [address] 8 04/04/2024 11:58:19 04/04/2024 12:41:56 Metastatic malignant neoplasm to brain 48001151 C79.31 Small cell carcinoma of lung 608139355 C34.90 [id number] Renetta Lawson MD [place] [address] 8 07/25/2024 13:49:05 07/25/2024 14:07:17 Metastatic malignant neoplasm to brain 41598222 C79.31 Small cell carcinoma of lung 788705749 C34.90 Health Concerns Section Related Observation LastModified by Organization Detai ls LastModified Time None Recorded Concern Status LastModified by Organization Details LastModified Time None Recorded Advance Directives Directive None Recorded Payers Insurance Date Sequence Insurance Name Policy Number Policy Richards Covered Member ID Richards Member ID Guarantor Name 07/25/2024 1 [place] Shantal Stanford [id number] Shantalarvin Stanford 07/25/2024 [place] - [place] ([place]ARE[place] Shantal Stanford [id number] Shantal Abdoulaye 07/25/2024 2 [place] [id number] Shantal Stanford [id number] Shantal Abdoulaye Notes Date Note Type [...] to use oxygen 24 hours a day. Renetat Lawson MD [address] [place] [address],[address], [place], [address], [facility] 10/03/2023 14:02:36 11/06/2023 text/html Patient [...] changes no other complaints. Renetta Lawson MD [address] [place] [address],[address], [place], [address], [facility] & [place] 11/06/2023 13:38:36 01/10/2024 text/html Patient is here [...] upper or lower limbs. Renetta Lawson MD [address] [place] [address],[address], [place], [address], [facility] 01/10/2024 14:10:49 04/04/2024 text/html Thanks [...] walking. No memory loss. Renetta Lawson MD [address] [place] [address],[address], [place], [address], [place] - LPNT [facility] 04/04/2024 12:32:39 07/25/2024 text/html Patient is here [...] 3 weeks ago she was hospitalized at [facility] with pneumonia and sepsis she improved [...] or lower limbs. Renetta Lawson MD [address] [facility],[address], [place], [address], [place] - LPNT [facility] & [place] 07/25/2024 13:59:51 OBGyn Episode No OBEpisode recorded.
--- OUTSIDE RECORDS SUMMARY | 2024-10-10 12:28 | XMS_ITS | Clinical Summary ---
Author Organization [facility] Address [address] [place] [address] Care Team Providers Care Aws Consultant Name Role Phone Mango Albert MD Primary Care Provider [phone] Allergies Active Allergy Reactions Criticality Noted Date [...] by mouth every night. 4 Active Multiple Vitamins-[place] als (multivitamin with minerals) tablet Take 1 [...] place to sleep or slept in a snf (including now)? No 08/27/2023 Utilities Answer Date [...] - Risk 60-74 years 1-dose series) 2019 [id number] Vaccine (2 - Erasto risk series) 12/24/2020 [...] this topic Medical Devices Implanted Type Area Pet Supplies Salesperson Device Identifier Shelf Expiration Date Model / Serial / Lot Graft Dura Repair 2x2 Synthecel - [id number] Implanted:Qty: 1 on 08/23/2023 by Nahum Peterson MD at [facility] Left: Brain Agrican [id number] 10/24/2025 [id number] .[id number] / / [id number] Cover, Neuro [place] Lp 17mm - [id number] Implanted:Qty: 1 on 08/23/2023 by Nahum Peterson MD at [facility]-544719 [id number] / / Plate, 2 Hole Low Profile - [id number] Implanted:Qty: 1 on 08/23/2023 by Nahum Peterson MD at [facility]-[id number] [id number] / / Screw Ti Matrixneuro Selfdrill 4mm - [id number] Implanted:Qty: 1 on 08/23/2023 by Nahum Peterson MD at [facility]110803 [id number] .[id number] / / Procedures Procedure Name Priority Date/Time Associated Diagnosis Comments HEPATITIS C ANTIBODY - ED W/REFLEX TO HCV QUANT PCR STAT 08/20/2023 6:36 AM EDT from Last 3 Months or Most Recently Relevant to Health Maintenance Results * Hepatitis C Antibody - ED (08/20/2023 6:36 AM EDT) Hepatitis C Antibody Negative Negative 08/20/2023 7:37 AM EDT [facility] Blood Venous blood specimen / Unknown Venipuncture / Unknown 08/20/2023 6:36 AM EDT 08/20/2023 6:58 AM EDT Neftaly Botello MD LAB BLOOD ORDERABLES Final Re sult [facility] [address] [place] [address] from Last 3 Months or Most Recently Relevant to Health Maintenance Insurance MEDICARE ANTHEM Advance Directives * Full Code (Latest Code Status on File) Date Activated Date Inactivated Comments 08/20/2023 1:42 PM 09/05/2023 7:24 PM Question Answer Comments Patient has decision-making capacity? Yes Care Teams Aws Consultant Relationship Specialty Start Date End Date Mango Albert MD [address] [place] [address] PCP - General Internal Medicine 08/20/23
--- NOTE | 2024-10-10 13:00 | MR_ITS ---
FINAL REPORT TECHNIQUE: Multiplanar MR, without and with gadolinium enhancement CLINICAL HISTORY: lung cancer f/u for brain cancer headaches , dizziness 17 ml prohance COMPARISON: 07/16/2024 FINDINGS: Diffusion sequences show no signal abnormality to indicate acute infarct. There is a dominant enhancing lesion in the left central cerebellum. The region of enhancement measures 22 x 16 mm in size, was previously 14 x 8 mm in size. There is also an increase in the adjacent vasogenic edema. There is moderate mass effect on the fourth ventricle which has increased from the prior exam although no evidence of hydronephrosis is identified. There is a small enhancing lesion in the right parietal-occipital area measuring 4 mm in size, stable. There is a small lateral right cerebellar lesion measuring 3 mm, best seen on image #18, similar to the prior exam. No new enhancing lesions are identified. There is enhancement in the left frontal calvarium measuring up to 9 mm in size, stable. There are postoperative changes in the left occipital region with encephalomalacia in the left posterior cerebellum. No recurrent masses are identified. There is confluent periventricular signal identified, that may be secondary to ischemic microvascular change or post therapeutic change. IMPRESSION: 1. Dominant enhancing left central cerebellar lesion has increased in size and is producing more mass effect than seen on the prior exam. 2. The other metastases are stable when compared to the prior exam. Reviewed, Interpreted and Dictated by Stone Donnelly MD Transcribed by Lawanda Del Toro Authenticated and [facility]
[2024-10-10] MEDS: SODIUM CHLORIDE 0.9% 10ML SYR (RAD ONLY) 10 ML IV (13:19)
[2024-10-10] MEDS: GADOTERIDOL INJ 20ML SYRINGE 17 ML IV (13:19)
== END 2024-10-10 23:59 | disposition home or self-care (01) ==
LOC: RAD 12:26
PROVIDERS: PCP Internal Medicine Adolescent Medicine; Visit Provider Internal Medicine Medical Oncology
DX: C34.90 Malignant neoplasm of unspecified part of unspecified bronchus or lung (principal); C79.31 Secondary malignant neoplasm of brain
CPT/HCPCS: 70553; A9576

== ENCOUNTER 2024-10-15 12:31 | Outpatient (CLI) | payer MEDICARE, BC, SELFPAY ==
--- OUTSIDE RECORDS SUMMARY | 2024-10-15 12:34 | XMS_ITS | Clinical Summary ---
Author Organization Healthcare Address [address] [place] [address] Care Team Providers Care Materials Technician Name Role Phone Mango Albert MD Primary Care Provider [phone] Allergies Active Allergy Reactions Criticality Noted Date [...] by mouth every night. 4 Active Multiple Vitamins-[place] als (multivitamin with minerals) tablet Take 1 [...] place to sleep or slept in a senior living (including now)? No 08/27/2023 Utilities Answer Date [...] - Risk 60-74 years 1-dose series) 2019 [id number] Vaccine (2 - Erasto risk series) 12/24/2020 [...] this topic Medical Devices Implanted Type Area Supervisor Smoke Control Device Identifier Shelf Expiration Date Model / Serial / Lot Graft Dura Repair 2x2 Synthecel - [id number] Implanted:Qty: 1 on 08/23/2023 by Nahum Peterson MD at [facility] Left: Brain [id number] [facility]-[id number] 10/24/2025 [id number].400.025 .[id number] / / [id number] Cover, Neuro [place] Lp 17mm - [id number] Implanted:Qty: 1 on 08/23/2023 by Nahum Peterson MD at [facility]-[id number] [id number] / / Plate, 2 Hole Low Profile - [id number] Implanted:Qty: 1 on 08/23/2023 by Nahum Peterson MD at [facility]-[id number] / / Screw Ti Matrixneuro Selfdrill 4mm - [id number] Implanted:Qty: 1 on 08/23/2023 by Nahum Peterson MD at [facility]648072 [id number] .[id number] / / Procedures Procedure Name Priority Date/Time Associated Diagnosis Comments HEPATITIS C ANTIBODY - ED W/REFLEX TO HCV QUANT PCR STAT 08/20/2023 6:36 AM EDT from Last 3 Months or Most Recently Relevant to Health Maintenance Results * Hepatitis C Antibody - ED (08/20/2023 6:36 AM EDT) Hepatitis C Antibody Negative Negative 08/20/2023 7:37 AM EDT [facility] Blood Venous blood specimen / Unknown Venipuncture / Unknown 08/20/2023 6:36 AM EDT 08/20/2023 6:58 AM EDT Neftaly Botello MD LAB BLOOD ORDERABLES Final Re sult [facility] [address] [place] [address] from Last 3 Months or Most Recently Relevant to Health Maintenance Insurance MEDICARE ANTHEM Advance Directives * Full Code (Latest Code Status on File) Date Activated Date Inactivated Comments 08/20/2023 1:42 PM 09/05/2023 7:24 PM Question Answer Comments Patient has decision-making capacity? Yes Care Teams Materials Technician Relationship Specialty Start Date End Date Mango Albert MD [address] [place] [address] PCP - General Internal Medicine 08/20/23
--- OUTSIDE RECORDS SUMMARY | 2024-10-15 12:34 | XMS_ITS ---
Author Organization Healthcare Address [address] [place] [address] Care Team Providers Care Human Resources Operations Manager Name Role Phone Mango Albert MD Primary Care Provider [phone] Active Problems Problem Noted Date Diagnosed Date [...]
--- OUTSIDE RECORDS SUMMARY | 2024-10-15 12:34 | XMS_ITS | Data Portability ---
Author Organization [place] - [facility] Address [address] [place] [address] Care Team Providers Care Lead Sharepoint Developer Name Role Phone LALIT PAINTER Referring Provider [...] be scheduled on or around 05/02/20242024 025 [facility], [address] [facility] [address], [place], [address], 10:17:19 Medication Orders None recorded. Patient TargetsNo targets recorded. Patient InstructionsNo instructions recorded. Reason for Referral None Reported. Results Created Date Observation Date Name Description Value Unit Range Abnormal Flag Note LastModifiedBy Organization Detail LastModifiedTime 01/10/20 24 12/14/2023 MRI, brain + brain stem, w/ contr ast No observ ation record ed. [facility] [place] Former [facility] [address], [place], [address], 01/10/2024 14:01:21 04/16/19 25 03/15/2024 MRI, brain , w/wo contr ast No observ ation record ed. [email or web address] Not Available 03/28 09:44:05 05/24/19 25 04/29/2024 MRI, brain , w/wo contr ast No observ ation record ed. [facility] [place] Former [address] [facility] [address], [place], [address], 05/27/2024 07:48:22 07/19/19 25 07/16/2024 MRI, brain , w/wo contr ast No observ ation record ed. [address], [place], [address], 07/18/2024 11:24:43 Result Notes None recorded. Problems Name Problem SNOMED Code Status Onset Date Resolution Date Notes Provider Name and Address Organization Details Recorded Time Small cell carcinoma of lung 489945476 Active 024 [place] Ace[place] - [place] [facility] [place] 4 09:44:19 Metastatic malignant neoplasm to brain 27452698 Active 024 [place] Acevedo [facility] [place] 4 09:44:41 Acute mucositis 272091361 Active 024 [place] Acevedo [facility] [place] 4 13:51:43 Problem Notes None recorded. Procedures Surgical History Date Name Laterality Status Provider Name and Address Organization Details Recorded Time 08/31/19 24 endoscopic endobronchial ultrasonography guided transbronchial needle aspiration of mediastinal lymph node completed Fatoumata VÁZQUEZ [facility] [place] 09/08/2023 10:42:33 08/21/19 24 craniotomy completed Fatoumata VÁZQUEZ [facility] [place] 09/08/2023 10:42:09 Carpal tunnel surgery completed Fatoumata VÁZQUEZ [facility] [place] 09/08/2023 10:41:49 Imaging Results None recorded. Procedure Notes None recorded. Medical Equipment None Reported. Allergies Allergen ID Allergen Name Allergen Category Reaction Reaction Severity Criticality Documentation Date Start Date Code Code System Note Provider Name and Address Organization Details Recorded Time 475121 Product containin g penicilli n (product) medicatio n Not available Not available Not available 09/08/2023 48239 8001 SNOMED [place] Acevedo [facility] [place] 4 13:53:29 707419 Keflex medicatio n Not available Not available Not available 09/08/2023 95182 7 RxNorm [place] Acevedo [facility] [place] 4 10:54:06 Medications Name Sig [...] Address Organization Details Last Updated DateTime 5 33236.2 2 g 97.3 [degF] 95 % 95 % 87 /min 19 /min 154/72 mm[Hg] Fatoumata VÁZQUEZ - [facility] 5 12:14:43 Date Recorded Body weight Body temperature Oxygen saturation Oxygen saturation in Arterial blood by Pulse oximetry Inhaled oxygen flow rate Heart rate Respiratory rate Systolic And Diastolic Provider Name and Address Organization Details Last Updated DateTime 5 15171.3 g 97.2 [degF] 95 % 95 % 3 L/min 84 /min 19 /min 143/69 mm[Hg] Fatoumata VÁZQUEZ [facility] 5 13:51:00 Date Recorded Body weight Body temperature Oxygen saturation Oxygen saturation in Arterial blood by Pulse oximetry Heart rate Respiratory rate Systolic And Diastolic Provider Name and Address Organization Details Last Updated DateTime 4 239934. 68 g 97.5 [degF] 98 % 98 % 96 /min 19 /min 125/67 mm[Hg] Fatoumata Ron LPNT [facility] [place] 4 13:28:04 Date Recorded Body temperature Oxygen saturation Oxygen saturation in Arterial blood by Pulse oximetry Inhaled oxygen flow rate Heart rate Respiratory rate Systolic And Diastolic Provider Name and Address Organization Details Last Updated DateTime 4 97 [degF] 99 % 99 % 3 L/min 82 /min 20 /min 125/68 mm[Hg] Fatoumata PEÑA KATHIE [facility] [place] 4 13:52:57 Social History Question Answer Notes LastModified by [employer] Details LastModified Time Tobacco Smoking Status Former Smoker Fatoumata Lozada [facility] [place] [facility] [place] 09/08/2023 10:41:23 When Did You [...] Status Question Answer Note LastModified by Organizat [place] Details LastModified Time Do you or have [...] SNOMED-CT Code Diagnosis ICD10 Code Diagnosis Note [id number] [facility] [place] [address] 8 09/08/2023 09:37:05 09/08/2023 10:46:00 Small cell carcinoma of lung 995428078 C34.90 Metastatic malignant neoplasm to brain 35807967 C79.31 [id number] Renetta Lawson MD [place] [address] 8 09/13/2023 13:19:24 09/13/2023 15:32:20 Metastatic malignant neoplasm to brain 84631175 C79.31 Small cell carcinoma of lung 994202651 C34.90 [id number] Renetta Lawson MD [place] [address] 8 09/19/2023 13:36:21 09/19/2023 14:37:37 Small cell carcinoma of lung 477685496 C34.90 Metastatic malignant neoplasm to brain 70013546 C79.31 [id number] Renetta Lawson MD [place] [address] 8 09/20/2023 13:28:45 09/20/2023 14:17:44 Metastatic malignant neoplasm to brain 95380780 C79.31 Small cell carcinoma of lung 146845721 C34.90 [id number] Renetta Lawson MD [place] [address] 8 09/21/2023 13:39:23 09/21/2023 14:06:20 Small cell carcinoma of lung 354822400 C34.90 Metastatic malignant neoplasm to brain 81960682 C79.31 [id number] Renetta Lawson MD [place] [address] 8 09/24/2023 10:05:25 09/24/2023 10:59:16 Metastatic malignant neoplasm to brain 83973142 C79.31 Small cell carcinoma of lung 255108493 C34.90 [id number] Renetta Lawson MD [place] [address] 8 09/25/2023 08:19:34 09/25/2023 09:39:32 Small cell carcinoma of lung 331160169 C34.90 Metastatic malignant neoplasm to brain 30357470 C79.31 [id number] Renetta Lawson MD [place] [address] 8 09/22/2023 10:50:20 09/22/2023 11:24:40 Metastatic malignant neoplasm to brain 22691912 C79.31 [id number] Renetta Lawson MD [place] [address] 8 09/26/2023 08:24:03 09/26/2023 09:27:30 Metastatic malignant neoplasm to brain 43686315 C79.31 Small cell carcinoma of lung 502147851 C34.90 [id number] Renetta Lawson MD [place] [address] 8 09/27/2023 08:12:42 09/27/2023 11:08:08 Small cell carcinoma of lung 328902948 C34.90 Metastatic malignant neoplasm to brain 66628294 C79.31 [id number] Renetta Lawson MD [place] [address] 8 10/02/2023 13:36:53 10/02/2023 14:14:11 Small cell carcinoma of lung 948230806 C34.90 Metastatic malignant neoplasm to brain 22995211 C79.31 Acute mucositis 01163657 8 K12.30 [id number] Renetta Lawson MD [place] [address] 8 10/03/2023 13:36:12 10/03/2023 15:41:36 Small cell carcinoma of lung 186540287 C34.90 Metastatic malignant neoplasm to brain 16330162 C79.31 [id number] Renetta Lawson MD [place] [address] 8 11/06/2023 13:00:38 11/06/2023 14:00:15 Small cell carcinoma of lung 804292835 C34.90 Metastatic malignant neoplasm to brain 99877900 C79.31 [id number] Renetta Lawson MD [place] [address] 8 01/10/2024 13:38:12 01/10/2024 15:03:23 Metastatic malignant neoplasm to brain 66043398 C79.31 Small cell carcinoma of lung 154349997 C34.90 [id number] Renetta Lawson MD [place] [address] 8 04/04/2024 11:58:19 04/04/2024 12:41:56 Metastatic malignant neoplasm to brain 58608019 C79.31 Small cell carcinoma of lung 454724742 C34.90 [id number] Renetta Lawson MD [place] [address] 8 07/25/2024 13:49:05 07/25/2024 14:07:17 Metastatic malignant neoplasm to brain 31622548 C79.31 Small cell carcinoma of lung 249678235 C34.90 Health Concerns Section Related Observation LastModified by Organization Detai ls LastModified Time None Recorded Concern Status LastModified by Organization Details LastModified Time None Recorded Advance Directives Directive None Recorded Payers Insurance Date Sequence Insurance Name Policy Number Policy Richards Covered Member ID Richards Member ID Guarantor Name 07/25/2024 1 [place] Shantal Stanford [id number] Shantalarvin Stanford 07/25/2024 [place] - [place] ([place]ARE) Shantal Stanford [id number] Shantal Abdoulaye 07/25/2024 2 [place]) [id number] Shantal Stanford [id number] Shantal Abdoulaye Notes Date Note Type [...] 24 hours a day. Renetta Lawson MD [address] [place] [address],[address], [place], [address], [facility] 10/03/2023 14:02:36 11/06/2023 text/html Patient is here [...] changes no other complaints. Renetta Lawson MD [address] [place] [address],[address], [place], [address], [facility] & [place] 11/06/2023 13:38:36 01/10/2024 [...] upper or lower limbs. Renetta Lawson MD [address] [place] [address],[address], [place], [address], [facility] 01/10/2024 14:10:49 04/04/2024 text/html Thanks Dr. Painter [...] walking. No memory loss. Renetta Lawson MD [address] [place] [address],[address], [place], [address], [place] - LPNT [facility] 04/04/2024 12:32:39 07/25/2024 text/html Patient is here [...] or lower limbs. Renetta Lawson MD [address] [facility],[address], [place], [address], [place] - LPNT [facility] [place] 07/25/2024 13:59:51 OBGyn Episode No OBEpisode recorded.
[2024-10-15] MEDS: BARIUM SULFATE(READI-CAT2);450ML BOTTLE 450 ML PO (12:57)
[2024-10-15] MEDS: SODIUM CHLORIDE 0.9% 10ML SYR (RAD ONLY) 10 ML IV (12:57)
[2024-10-15] MEDS: IOPAMIDOL-370 (76%);100ML BOTTLE 75 ML IV (12:58)
--- NOTE | 2024-10-15 13:00 | CT_ITS ---
FINAL REPORT TECHNIQUE: After the administration of intravenous contrast, axial images through the chest were performed by computed tomography.This study was performed with techniques to keep radiation doses as low as reasonably achievable, (ALARA). Individualized dose reduction techniques using automated exposure control or adjustment of mA and/or kV according to the patient''s size were employed. CLINICAL HISTORY: lung cancer COMPARISON: 06/29/2023 FINDINGS: Previously seen right upper lobe infiltrate is resolved but there is a component of residual disease. There is minimal ill-defined nodular densities in the bilateral lower lobe posteriorly, new from prior exam. Findings are favored to be inflammatory. Similar densities are seen in the right middle lobe is favored to be inflammatory. Finding is best seen on image 65. There is right hilar adenopathy measuring 35 x 21 mm, previously measured 24 x 16 mm. There is no mediastinal or hilar adenopathy. There is increasing pericardial effusion which is moderate in size. Pericardial fluid overlying the apex measures up to 9 mm in thickness, was 6 mm. There is no pleural effusion. IMPRESSION: Partial improvement of right upper lobe pneumonia. Residual consolidation remains posteriorly. New nodular densities scattered within the lung bases, likely inflammatory nodules. Increasing right hilar adenopathy, nonspecific but may be reactive or neoplastic. Reviewed, Interpreted and Dictated by Stone Donnelly MD Transcribed by Amber Gupta Authenticated and [facility]
--- NOTE | 2024-10-15 13:00 | CT_ITS ---
FINAL REPORT TECHNIQUE: Oral and IV contrast enhanced exam This study was performed with techniques to keep radiation doses as low as reasonably achievable, (ALARA). Individualized dose reduction techniques using automated exposure control or adjustment of mA and/or kV according to the patient''s size were employed. CLINICAL HISTORY: lung cancer COMPARISON: 07/19/2023 FINDINGS: Abdomen: There is stable bilateral adrenal enlargement, favor adenomas or hyperplasia. Remaining solid organs are unremarkable. The gallbladder is unremarkable. No bowel obstruction is present. There is no free air. No fluid collection is seen. There are borderline enlarged portacaval lymph nodes, stable. There is a supraumbilical hernia containing fat, stable from prior exam. Pelvis: The appendix is normal. No mass or adenopathy. There is a small right inguinal hernia. No bowel wall thickening is present. There is no free fluid. IMPRESSION: No acute intra-abdominal findings. No convincing metastatic disease. Reviewed, Interpreted and Dictated by Stone Donnelly MD Transcribed by Amber Gupta Authenticated and . [facility]
== END 2024-10-15 23:59 | disposition home or self-care (01) ==
LOC: RAD 12:32
PROVIDERS: PCP Internal Medicine Adolescent Medicine; Visit Provider Internal Medicine Medical Oncology
DX: C34.90 Malignant neoplasm of unspecified part of unspecified bronchus or lung (principal); J18.9 Pneumonia, unspecified organism; R91.8 Other nonspecific abnormal finding of lung field; R59.0 Localized enlarged lymph nodes
CPT/HCPCS: 71260; 74177; Q9967

== ENCOUNTER 2024-10-17 10:23 | Outpatient (CLI) | payer MEDICARE, BC, SELFPAY ==
--- OUTSIDE RECORDS SUMMARY | 2024-06-29 17:30 | XMS_ITS ---
Author Organization [facility] Address [address] [place] [address] Care Team Providers Care Vocational Coordinator Name Role Phone Mango Albert Primary Care Provider Migration, Provider Unavailable Unavailable Allergies Allergen (clinical drug ingredient) Drug/Non Drug Allergy documented on EMR Reaction Allergy Type Onset Date Status levetiracetam Keppra Unknown Drug Allergy Act farideh Penicillin Unknown Drug Allergy Active [facility]AS[facility] FOR VISIT [facility] Encounter Medications Medication SIG (Take, Route, Frequency, Duration) Notes Start Date End Date Status Vitamin D3 25 MCG 1 tab(s) orally once a day Active Vitamin B1 50 MG 1 TAB(S) ORALLY ONCE A DAY *Please review and pick correct strength-formulat ion from [facility] options. If intended option is not [...] MOUTH INHALED EVERY 2 HOURS DIRECTED . OFFICE ASSISTANCE RECOMMENDS NOT TO EXCEED 12 INHALATIONS A [...] a day; Duration: 90 days Active Nystatin 724815 UNIT/ML 5 ML orally 4 times a day; Duration: 15 days swish and swallow 09/22/2023 Active Nystatin 511619 UNIT/GM 1 denise applied topically 2 times a day 09/14/2023 Active Protonix 40 MG TAKE 1 TABLET BY MOUTH DAILY orally once a day; Duration: 90 days Active Atorvastatin Calcium 80 MG 1 tab(s) orally once a day; Duration: 90 Active Euthyrox 200 MCG (0.2 MG) 1 TAB(S) ORALLY ONCE A DAY; Duration: 90 DAYS *Please review and pick correct strength-formulat ion from [employer] options. If intended option is not shown, discontinue and re-order from Quick Search* Active Synthroid 25 MCG 1 tab(s) orally once a day; Duration: 90 days Active Trelegy Ellipta 200 MCG-62.5 MCG-25 MCG/INH 1 PUFF(S) INHALED ONCE A DAY; Duration: 90 DAYS *Please review and pick correct strength-formulat ion from [employer] options. If intended option is not shown, [...] Active Encounters Encounter Location Date Provider Diagnosis [facility] [place] [address] [facility] [address] [place] [address] 06/29/2024 Provider Migration Depression with anxiety F41.8 [...] MOUTH INHALED EVERY 2 HOURS DIRECTED . OFFICE ASSISTANCE RECOMMENDS NOT TO EXCEED 12 INHALATIONS A [...] once a day; Duration: 90 days Nystatin 111946 UNIT/ML 5 ML orally 4 times a [...] * Shantal LEON LDOB:1960 (64 yo F)Acc No.[id number]:06/29/2024 Patient: Shantal POTTER Provider: Cody Oneil :1960 A ge:63 Y S ex:Female Date:06/29/2024 Address:[address] [place], [place] [id number] Pcp:Mango Albert Subjective: * Chief Complaints: * 1 . [facility] Conversion Encounter. * Medical History: * Medications: [...] *Please review and pick correct strength-formulation from [facility] options. If intended option is not shown, [...] *Please review and pick correct strength-formulation from [employer] options. If intended option is not shown, discontinue and re-order from Quick Search*, Taking Famotidine 40 MG Tablet 1 tab(s) orally once a day (at bedtime) , Taking Trelegy Ellipta 200 MCG-62.5 MCG-25 MCG/INH POWDER 1 PUFF(S) INHALED ONCE A DAY , Notes to Pharmacist: *Please review and pick correct strength-formulation from [employer] options. If intended option is not shown, discontinue and re-order from Quick Search*, Taking Nystatin 151229 UNIT/GM Ointment 1 denise applied topically 2 [...] 3. S ore throat Start Nystatin Suspension, 325851 UNIT/ML, 5 ML, orally, 4 times a [...] MOUTH INHALED EVERY 2 HOURS DIRECTED . OFFICE ASSISTANCE RECOMMENDS NOT TO EXCEED 12 INHALATIONS A [...] Electronic signature of Prov ider Migration on 10/17/2024 at 10:32 AM EDT Sign off status: Pending * Provider: Cody albright Migration Date: 0 06/29/2024 Generated for Printi ng/Corinna/Melitting on: 0 10/17/2024 10:32 AM EDT
--- OUTSIDE RECORDS SUMMARY | 2024-09-03 20:00 | XMS_ITS | Clinical Summary ---
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 03-27 00:00: 00 JAIL (CURRENT) USE OF INHALED STEROIDS Active 03-27 [...] 07-08 00:00: 00 07-18 23:59 :00 No [id number] ANTIBIOTIC 1 tablet DAILY 1 tablet DAILY (route: oral) Med Classific ation: Anti-Infe ctive Agents bisoprolol fumarate 5 mg tablet 06-11 00:00: 00 07-11 00:00 :00 No [id number] Per instruc tions Per instructio ns (route: oral) Med Classific ation: Cardiovas cular Therapy Agents albuterol sulfate HFA 90 mcg/actuati on aerosol inhaler 07-11 00:00: 00 Yes [id number] LUNGS 1 puff EVERY 4 HOURS 1 puff EVERY 4 HOURS (route: inhalation ) Med Classific ation: Respirato ry Therapy Agents atorvastati n 80 mg tablet 07-11 00:00: 00 Yes [id number] CHOLESTEROL 1 tablet DAILY 1 tablet DAILY (route: oral) Med Classific ation: Cardiovas cular Therapy Agents buspirone 10 mg tablet 07-11 00:00: 00 Yes [id number] DEPRESSION 1 tablet 3 TIMES DAILY 1 tablet 3 TIMES DAILY (route: oral) Med Classific ation: Central Nervous System Agents ipratropium 0.5 mg-albutero l 2.5 mg/2.5 mL solution for nebulizatio n 07-11 00:00: 00 Yes [id number] LUNGS 3 mg EVERY 6 HOURS 3 mg EVERY 6 HOURS (route: inhalation ) Med Classific ation: Respirato ry Therapy Agents levothyroxi ne 125 mcg capsule 07-11 00:00: 00 Yes [id number] THYROID 1 capsule DAILY 1 capsule DAILY (route: oral) Med Classific ation: Endocrine montelukast 10 mg tablet 07-11 00:00: 00 Yes [id number] ALLERGIES 1 tablet DAILY 1 tablet DAILY (route: oral) Med Classific ation: Respirato ry Therapy Agents oxycodone 5 mg tablet 07-11 00:00: 00 Yes [id number] PAIN 1 tablet EVERY 6 HOURS 1 tablet EVERY 6 HOURS (route: oral) Med Classific ation: Analgesic , Anti-infl ammatory or Antipyret ic oxygen gas for inhalation 07-11 00:00: 00 Yes [id number] OXYGEN 3.5 Liter O2 - CONTINUOUS 3.5 Liter O2 - CONTINUOUS (route: inhalation ) Med Classific ation: Medical Supplies and Durable Medical Equipment (DME) pantoprazol e 40 mg tablet,chun yed release 07-11 00:00: 00 Yes [id number] REFLUX 1 tablet DAILY 1 tablet DAILY (route: oral) Med Classific ation: Gastroint estinal Therapy Agents potassium chloride ER 20 mEq tablet,exte nded release 07-11 00:00: 00 Yes [id number] SUPPLEMENT 1 tablet DAILY 1 tablet DAILY (route: oral) Med Classific ation: Electroly te Balance-N utritiona l Products Trelegy Ellipta 200 mcg-62.5 mcg-25 mcg powder for inhalation 07-11 00:00: 00 Yes [id number] LUNGS 2 inhalat ion 2 TIMES DAILY 2 inhalation 2 TIMES DAILY (route: inhalation ) Med Classific ation: Respirato ry Therapy Agents venlafaxine 75 mg tablet 07-11 00:00: 00 Yes [id number] DEPRESSION 1 tablet DAILY 1 tablet DAILY [...] LALIT ANSARI. RN TO OBSERVE AND ASSESS, KILN FIRER/INSPECTOR ELEVATORS TO OBSERVE FOR RISK FOR FALLS AND INSTRUCT IN FALL PREVENTION, HOME SAFETY, MEDICATION MANAGEMENT, INFECTION PREVENTION, AND NUTRITION MANAGEMENT. RN/KILN FIRER/INSPECTOR ELEVATORS NURSE MAY PERFORM O2 SATURATION LEVEL ON ADMISSION AND PRN FOR DYSPNEA FOR RN TO ASSESS/KILN FIRER TO OBSERVE PATIENT, WITH NOTIFICATION TO THE PHYSICIAN IF SATURATION IS 90% IN THE ABSENCE OF MORE SPECIFIC PARAMETERS FROM THE PHYSICIAN. AGENCY MAY PERFORM A RESUMPTION OF CARE VISIT FOLLOWING ANY HOSPITAL ADMISSION. RN/KILN FIRER/INSPECTOR ELEVATORS TO MONITOR CO-MORBID CONDITIONS LISTED ON THE PLAN OF CARE AND ANY NEW CONDITIONS THAT PRESENT THEMSELVES DURING THIS EPISODE TO IDENTIFY CHANGES AND INTERVENE TO MINIMIZE COMPLICATIONS. [code = RN TO OBSERVE, ASSESS, EVALUATE, AND DEVELOP AN INDIVIDUALIZED PLAN OF CARE. AGENCY MAY ACCEPT ORDERS FROM CONSULTING PHYSICIANS MAREK DIAS, LALIT AMOS. RN TO OBSERVE AND ASSESS, KILN FIRER/INSPECTOR ELEVATORS TO OBSERVE FOR RISK FOR FALLS AND INSTRUCT IN FALL PREVENTION, HOME SAFETY, MEDICATION MANAGEMENT, INFECTION PREVENTION, AND NUTRITION MANAGEMENT. RN/KILN FIRER/INSPECTOR ELEVATORS NURSE MAY PERFORM O2 SATURATION LEVEL ON ADMISSION AND PRN FOR DYSPNEA FOR RN TO ASSESS/KILN FIRER TO OBSERVE PATIENT, WITH NOTIFICATION TO THE PHYSICIAN IF SATURATION IS 90% IN THE ABSENCE OF MORE SPECIFIC PARAMETERS FROM THE PHYSICIAN. AGENCY MAY PERFORM A RESUMPTION OF CARE VISIT FOLLOWING ANY HOSPITAL ADMISSION. RN/KILN FIRER/INSPECTOR ELEVATORS TO MONITOR CO-MORBID CONDITIONS LISTED ON THE PLAN OF CARE AND ANY NEW CONDITIONS THAT PRESENT THEMSELVES DURING THIS EPISODE TO IDENTIFY CHANGES AND INTERVENE TO MINIMIZE COMPLICATIONS.] Future Scheduled Test MEDICATION MANAGEMENT; RN/KILN FIRER/INSPECTOR ELEVATORS TO REVIEW MEDICATIONS FOR INTERACTIONS, EFFECTIVENESS OF DRUG THERAPY, AND SIGNS/SYMPTOMS OF ADVERSE REACTIONS. MAY INSTRUCT AND REINFORCE MEDICATION TEACHING RELATED TO THE USE OF MEDICATIONS, DOSAGE, FREQUENCY, PURPOSE, SIDE EFFECTS, AND TO REPORT COMPLICATIONS. [code = MEDICATION MANAGEMENT; RN/KILN FIRER/INSPECTOR ELEVATORS TO REVIEW MEDICATIONS FOR INTERACTIONS, EFFECTIVENESS OF DRUG THERAPY, AND SIGNS/SYMPTOMS OF ADVERSE REACTIONS. MAY INSTRUCT AND REINFORCE MEDICATION TEACHING RELATED TO THE USE OF MEDICATIONS, DOSAGE, FREQUENCY, PURPOSE, SIDE EFFECTS, AND TO REPORT COMPLICATIONS.] Future Scheduled Test RISK FOR H OSPITALIZATION; RN TO ASSESS/TEACH, INSPECTOR ELEVATORS/KILN FIRER TO OBSERVE/TEACH PATIENT/CAREGIVER ON RISK FOR HOSPITALIZATION/EMERGENCY ROOM VISITS, TEACH SIGNS AND SYMPTOMS THAT PUT PATIENT AT RISK, WHEN TO NOTIFY NURSE/PHYSICIAN OF COMPLICATIONS/DECLINE, AND WHEN TO CALL 911. [code = RISK FOR HOSPITALIZATION; RN TO ASSESS/TEACH, INSPECTOR ELEVATORS/KILN FIRER TO OBSERVE/TEACH PATIENT/CAREGIVER ON RISK FOR HOSPITALIZATION/EMERGENCY ROOM VISITS, TEACH SIGNS AND SYMPTOMS THAT PUT PATIENT AT RISK, WHEN TO NOTIFY NURSE/PHYSICIAN OF COMPLICATIONS/DECLINE, AND WHEN TO CALL 911.] Future Scheduled Test CARDIOVASC ULAR SYSTEM; RN TO ASSESS/TEACH, KILN FIRER/INSPECTOR ELEVATORS TO OBSERVE/TEACH RELATED TO ALTERED CARDIOVASCULAR STATUS TO MINIMIZE COMPLICATIONS AND REDUCE HOSPITALIZATION. [code = CARDIOVASCULAR SYSTEM; RN TO ASSESS/TEACH, KILN FIRER/INSPECTOR ELEVATORS TO OBSERVE/TEACH RELATED TO ALTERED CARDIOVASCULAR STATUS TO MINIMIZE COMPLICATIONS AND REDUCE HOSPITALIZATION.] Future Scheduled Test HEART FAIL URE; RN TO ASSESS/TEACH, KILN FIRER/INSPECTOR ELEVATORS TO OBSERVE/TEACH CARDIOPULMONARY SYSTEM TO IDENTIFY SIGNS [...] [code = HEART FAILURE; RN TO ASSESS/TEACH, KILN FIRER/INSPECTOR ELEVATORS TO OBSERVE/TEACH CARDIOPULMONARY SYSTEM TO IDENTIFY SIGNS [...] ON MANAGEMENT; RN TO ASSESS AND TEACH, KILN FIRER/INSPECTOR ELEVATORS TO OBSERVE AND TEACH WARNING SIGNS AND SYMPTOMS TO AVOID HOSPITALIZATION. [code = HYPERTENSION MANAGEMENT; RN TO ASSESS AND TEACH, KILN FIRER/INSPECTOR ELEVATORS TO OBSERVE AND TEACH WARNING SIGNS AND SYMPTOMS TO AVOID HOSPITALIZATION.] Future Scheduled Test RESPIRATOR Y SYSTEM MANAGEMENT; RN TO ASSESS AND TEACH, KILN FIRER/INSPECTOR ELEVATORS TO OBSERVE AND TEACH RELATED TO ALTERED RESPIRATORY STATUS TO MINIMIZE COMPLICATIONS AND REDUCE HOSPITALIZATION. [code = RESPIRATORY SYSTEM MANAGEMENT; RN TO ASSESS AND TEACH, KILN FIRER/INSPECTOR ELEVATORS TO OBSERVE AND TEACH RELATED TO ALTERED RESPIRATORY STATUS TO MINIMIZE COMPLICATIONS AND REDUCE HOSPITALIZATION.] Future Scheduled Test COPD MANAG EMENT; RN TO ASSESS AND TEACH, KILN FIRER/INSPECTOR ELEVATORS TO OBSERVE AND TEACH SIGNS/SYMPTOMS OF COPD EXACERBATION AND PROVIDE EARLY INTERVENTIONS TO MINIMIZE RISK OF HOSPITALIZATION. RN/KILN FIRER/INSPECTOR ELEVATORS TO INSTRUCT ON SELF-CARE MANAGEMENT INCLUDING BREATHING TECHNIQUES, AIRWAY CLEARANCE, AND PROPER USE OF COPD MEDICATIONS. RN TO ASSESS AND TEACH, KILN FIRER/INSPECTOR ELEVATORS TO OBSERVE AND TEACH PATIENT/CAREGIVER ABILITY TO MONITOR AND RECORD VITAL SIGNS INCLUDING PULSE OXIMETRY AND BLOOD PRESSURE. PULSE OXIMETER AND BP MONITOR TO BE PROVIDED IF NEEDED [code = COPD MANAGEMENT; RN TO ASSESS AND TEACH, KILN FIRER/INSPECTOR ELEVATORS TO OBSERVE AND TEACH SIGNS/SYMPTOMS OF COPD EXACERBATION AND PROVIDE EARLY INTERVENTIONS TO MINIMIZE RISK OF HOSPITALIZATION. RN/KILN FIRER/INSPECTOR ELEVATORS TO INSTRUCT ON SELF-CARE MANAGEMENT INCLUDING BREATHING TECHNIQUES, AIRWAY CLEARANCE, AND PROPER USE OF COPD MEDICATIONS. RN TO ASSESS AND TEACH, KILN FIRER/INSPECTOR ELEVATORS TO OBSERVE AND TEACH PATIENT/CAREGIVER ABILITY TO MONITOR AND RECORD VITAL SIGNS INCLUDING PULSE OXIMETRY AND BLOOD PRESSURE. PULSE OXIMETER AND BP MONITOR TO BE PROVIDED IF NEEDED ] Future Scheduled Test ASTHMA MAN AGEMENT; RN TO ASSESS AND TEACH, KILN FIRER/INSPECTOR ELEVATORS TO OBSERVE AND TEACH ASTHMA MANAGEMENT AND PROVIDE EARLY INTERVENTIONS TO MINIMIZE RISK OF HOSPITALIZATION [code = ASTHMA MANAGEMENT; RN TO ASSESS AND TEACH, KILN FIRER/INSPECTOR ELEVATORS TO OBSERVE AND TEACH ASTHMA MANAGEMENT AND PROVIDE EARLY INTERVENTIONS TO MINIMIZE RISK OF HOSPITALIZATION] Future Scheduled Test OXYGEN THE RAPY; RN/KILN FIRER/INSPECTOR ELEVATORS TO INSTRUCT ON OXYGEN MANAGEMENT INCLUDING: ADMINISTRATION AT 3.5L/MIN VIA NC CONTINUOUS, CARE OF EQUIPMENT AND SAFETY. [code = OXYGEN THERAPY; RN/KILN FIRER/INSPECTOR ELEVATORS TO INSTRUCT ON OXYGEN MANAGEMENT INCLUDING: ADMINISTRATION AT 3.5L/MIN VIA NC CONTINUOUS, CARE OF EQUIPMENT AND SAFETY.] Future Scheduled Test SKIN INTEG RITY RN TO ASSESS AND TEACH, KILN FIRER/INSPECTOR ELEVATORS TO OBSERVE AND TEACH INTEGUMENTARY STATUS TO IDENTIFY CHANGES AND INTERVENE TO MINIMIZE COMPLICATIONS. PROVIDE SKILLED TEACHING OF GENERAL WOUND AND SKIN CARE AND PREVENTION RELATED TO POTENTIAL FOR OR ACTUAL ALTERED SKIN INTEGRITY [code = SKIN INTEGRITY RN TO ASSESS AND TEACH, KILN FIRER/INSPECTOR ELEVATORS TO OBSERVE AND TEACH INTEGUMENTARY STATUS TO IDENTIFY CHANGES AND INTERVENE TO MINIMIZE COMPLICATIONS. PROVIDE SKILLED TEACHING OF GENERAL WOUND AND SKIN CARE AND PREVENTION RELATED TO POTENTIAL FOR OR ACTUAL ALTERED SKIN INTEGRITY ] Future Scheduled Test PAIN MANAG EMENT; RN TO ASSESS AND TEACH, INSPECTOR ELEVATORS/KILN FIRER TO OBSERVE AND TEACH AND PROVIDE EDUCATION ON PAIN MANAGEMENT TECHNIQUES. [code = PAIN MANAGEMENT; RN TO ASSESS AND TEACH, INSPECTOR ELEVATORS/KILN FIRER TO OBSERVE AND TEACH AND PROVIDE EDUCATION ON PAIN MANAGEMENT TECHNIQUES.] Future Scheduled Test GENITOURIN VAMSHI MANAGEMENT; RN TO ASSESS AND TEACH, KILN FIRER/INSPECTOR ELEVATORS TO OBSERVE AND TEACH RELATED TO ALTERED GENITOURINARY STATUS TO MINIMIZE COMPLICATIONS AND REDUCE HOSPITALIZATION. [code = GENITOURINARY MANAGEMENT; RN TO ASSESS AND TEACH, KILN FIRER/INSPECTOR ELEVATORS TO OBSERVE AND TEACH RELATED TO ALTERED GENITOURINARY STATUS TO MINIMIZE COMPLICATIONS AND REDUCE HOSPITALIZATION.] Future Scheduled Test URINARY TR ACT INFECTION MANAGEMENT; RN/INSPECTOR ELEVATORS/KILN FIRER TO PROVIDE SKILLED TEACHING AND SELF- CARE MANAGEMENT RELATED TO UTI TO MINIMIZE COMPLICATIONS AND REDUCE THE RISK OF HOSPITALIZATION. [code = URINARY TRACT INFECTION MANAGEMENT; RN/INSPECTOR ELEVATORS/KILN FIRER TO PROVIDE SKILLED TEACHING AND SELF- CARE MANAGEMENT RELATED TO UTI TO MINIMIZE COMPLICATIONS AND REDUCE THE RISK OF HOSPITALIZATION.] Future Scheduled Test FALL REDUC TION MANAGEMENT; RN TO ASSESS AND OBSERVE, KILN FIRER/INSPECTOR ELEVATORS TO OBSERVE FALL RISK FACTORS AND EDUCATE PATIENT/CAREGIVER ON STRATEGIES TO MINIMIZE THE RISK OF FALLING. [code = FALL REDUCTION MANAGEMENT; RN TO ASSESS AND OBSERVE, KILN FIRER/INSPECTOR ELEVATORS TO OBSERVE FALL RISK FACTORS AND EDUCATE PATIENT/CAREGIVER ON STRATEGIES TO MINIMIZE THE RISK OF FALLING.] Future Scheduled Test CANCER MAN AGEMENT; RN TO ASSESS AND TEACH, INSPECTOR ELEVATORS/KILN FIRER TO OBSERVE AND TEACH AND PROVIDE EDUCATION ON CANCER. [code = CANCER MANAGEMENT; RN TO ASSESS AND TEACH, INSPECTOR ELEVATORS/KILN FIRER TO OBSERVE AND TEACH AND PROVIDE EDUCATION ON CANCER.] Future Scheduled Test PRN VISITS ; NUMBER OF RN/KILN FIRER/INSPECTOR ELEVATORS VISITS: 2 RN/KILN FIRER/INSPECTOR ELEVATORS TO PERFORM: CARDIOPULMONARY STATUS FOR THE FOLLOWING REASONS: WEIGHT GAIN, SWELLING, INCREASED SHORTNESS OF BREATH, COUGH, FEVER, CONFUSION, [code = PRN VISITS; NUMBER OF RN/KILN FIRER/INSPECTOR ELEVATORS VISITS: 2 RN/KILN FIRER/INSPECTOR ELEVATORS TO PERFORM: CARDIOPULMONARY STATUS FOR THE FOLLOWING REASONS: WEIGHT GAIN, SWELLING, INCREASED SHORTNESS OF BREATH, COUGH, FEVER, CONFUSION, ] Future Scheduled Test PHYSICAL T HERAPIST TO EVALUATE FOR GAIT ENDURANCE STRENGTH [code = PHYSICAL THERAPIST TO EVALUATE FOR GAIT ENDURANCE STRENGTH ] Future Scheduled Test DIABETES M ANAGEMENT; RN TO ASSESS AND TEACH, INSPECTOR ELEVATORS/KILN FIRER TO OBSERVE AND TEACH INSTRUCTIONS OF DIABETIC CARE TO INCLUDE: DIET LOW CARB, SKIN CARE, SIGNS AND SYMPTOMS OF HYPO/HYPERGLYCEMIA, PROPER ADMINISTRATION OF DIABETIC MEDICATION. RN/INSPECTOR ELEVATORS/KILN FIRER TO INSTRUCT ON DIABETIC FOOT CARE AND MONITOR FOR SKIN LESIONS ON LOWER EXTREMITIES. BLOOD GLUCOSE TESTING PRN FREQ. RN TO ASSESS AND TEACH, INSPECTOR ELEVATORS/KILN FIRER TO OBSERVE AND TEACH PATIENT/CAREGIVER ABILITY TO PERFORM AND RECORD BLOOD GLUCOSE TESTING ORDERED AND TO REPORT ABNORMAL FINDINGS TO PHYSICIAN. RN/INSPECTOR ELEVATORS/KILN FIRER MAY PERFORM BLOOD GLUCOSE TEST NEEDED. RN/INSPECTOR ELEVATORS/KILN FIRER TO REPORT TO PHYSICIAN BLOOD GLUCOSE READINGS GREATER THAN 400 OR LESS THAN 60 RN/INSPECTOR ELEVATORS/KILN FIRER TO INSTRUCT PATIENT ON IMPORTANCE OF HGBA1C MONITORING, KIDNEY FUNCTION TEST, EYE AND FOOT EXAMS. [code = DIABETES MANAGEMENT; RN TO ASSESS AND TEACH, INSPECTOR ELEVATORS/KILN FIRER TO OBSERVE AND TEACH INSTRUCTIONS OF DIABETIC CARE TO INCLUDE: DIET LOW CARB, SKIN CARE, SIGNS AND SYMPTOMS OF HYPO/HYPERGLYCEMIA, PROPER ADMINISTRATION OF DIABETIC MEDICATION. RN/INSPECTOR ELEVATORS/KILN FIRER TO INSTRUCT ON DIABETIC FOOT CARE AND MONITOR FOR SKIN LESIONS ON LOWER EXTREMITIES. BLOOD GLUCOSE TESTING PRN FREQ. RN TO ASSESS AND TEACH, INSPECTOR ELEVATORS/KILN FIRER TO OBSERVE AND TEACH PATIENT/CAREGIVER ABILITY TO PERFORM AND RECORD BLOOD GLUCOSE TESTING ORDERED AND TO REPORT ABNORMAL FINDINGS TO PHYSICIAN. RN/INSPECTOR ELEVATORS/KILN FIRER MAY PERFORM BLOOD GLUCOSE TEST NEEDED. RN/INSPECTOR ELEVATORS/KILN FIRER TO REPORT TO PHYSICIAN BLOOD GLUCOSE READINGS GREATER THAN 400 OR LESS THAN 60 RN/INSPECTOR ELEVATORS/KILN FIRER TO INSTRUCT PATIENT ON IMPORTANCE OF HGBA1C MONITORING, KIDNEY FUNCTION TEST, EYE AND FOOT EXAMS.] Future Scheduled Test AGENCY MAY PERFORM A RESUMPTION OF CARE VISIT FOLLOWING ANY HOSPITAL ADMISSION. PT TO EVALUATE, OBSERVE / ASSESS, AND MONITOR, MANAGER OF OPERATIONS TO OBSERVE AND MONITOR, PROVIDE SKILLED THERAPEUTIC INTERVENTION, ACTIVITY, EDUCATION, AND TRAINING TO ADDRESS; PT/MANAGER OF OPERATIONS TO PROVIDE GAIT TRAINING FOR IMPROVED MOBILITY AND /OR TO NORMALIZE GAIT PATTERN NEUROMUSCULAR RE-EDUCATION / BALANCE / POSTURAL CONTROL (PT) THERAPEUTIC EXERCISES AND ESTABLISHING A HOME EXERCISE PROGRAM (PT/MANAGER OF OPERATIONS) SIT TO/FROM STAND TRANSFERS (PT/MANAGER OF OPERATIONS) PT / MANAGER OF OPERATIONS TO EDUCATE PATIENT / CAREGIVER ON OXYGEN MANAGEMENT PT / MANAGER OF OPERATIONS MAY EDUCATE ON PAIN MANAGEMENT CLINICALLY INDICATED, INCLUDING NON-PHARMACOLOGICAL PAIN REDUCTION TECHNIQUES PT / MANAGER OF OPERATIONS TO MONITOR FOR HYPO/HYPERGLYCEMIA AND CONDUCT ROUTINE FOOT INSPECTIONS. RECORD PATIENT REPORTED BLOOD SUGAR LEVELS AND NOTIFY PHYSICIAN AND/OR THE RN CLINICAL COMPONENT DESIGN ENGINEER FOR PHYSICIAN NOTIFICATION IF BLOOD SUGAR LEVELS ARE OUTSIDE ORDERED PARAMETERS. TEACH PATIENT/CAREGIVER ON DAILY FOOT INSPECTIONS PT TO ASSESS / MANAGER OF OPERATIONS TO MONITOR CARDIO/RESPIRATORY SYSTEM; AND NOTIFY THE PHYSICIAN AND/OR THE RN CLINICAL COMPONENT DESIGN ENGINEER FOR PHYSICIAN NOTIFICATION FOR EARLY SIGNS AND SYMPTOMS OF EXACERBATION OR DETERIORATION. PT/MANAGER OF OPERATIONS TO IDENTIFY FALL RISK FACTORS; EDUCATE THE PATIENT/CAREGIVER ON WAYS TO REDUCE FALL RISK FACTORS AND ESTABLISH HOME EXERCISE PROGRAM TO MINIMIZE FALL RISK. MAY TEACH THE PATIENT FLOOR RECOVERY WHEN CLINICALLY APPROPRIATE PT TO ASSESS / MANAGER OF OPERATIONS TO MONITOR FOR HEART FAILURE EXACERBATION AND RECORD PATIENT REPORTED WEIGHT, AND NOTIFY THE PHYSICIAN AND/OR THE RN CLINICAL COMPONENT DESIGN ENGINEER FOR PHYSICIAN NOTIFICATION OF HF EXACERBATION (2LB WEIGHT GAIN IN 1 DAY, 5LBS IN A WEEK OR 5 LBS OVER BASELINE; INCREASED SOB, EDEMA, NEEDING MORE PILLOWS AT NIGHT, CRACKLES IN BASIS OF THE LUNGS OR PMI SHIFT) [code = AGENCY MAY PERFORM A RESUMPTION OF CARE VISIT FOLLOWING ANY HOSPITAL ADMISSION. PT TO EVALUATE, OBSERVE / ASSESS, AND MONITOR, MANAGER OF OPERATIONS TO OBSERVE AND MONITOR, PROVIDE SKILLED THERAPEUTIC INTERVENTION, ACTIVITY, EDUCATION, AND TRAINING TO ADDRESS; PT/MANAGER OF OPERATIONS TO PROVIDE GAIT TRAINING FOR IMPROVED MOBILITY AND /OR TO NORMALIZE GAIT PATTERN NEUROMUSCULAR RE-EDUCATION / BALANCE / POSTURAL CONTROL (PT) THERAPEUTIC EXERCISES AND ESTABLISHING A HOME EXERCISE PROGRAM (PT/MANAGER OF OPERATIONS) SIT TO/FROM STAND TRANSFERS (PT/MANAGER OF OPERATIONS) PT / MANAGER OF OPERATIONS TO EDUCATE PATIENT / CAREGIVER ON OXYGEN MANAGEMENT PT / MANAGER OF OPERATIONS MAY EDUCATE ON PAIN MANAGEMENT CLINICALLY INDICATED, INCLUDING NON-PHARMACOLOGICAL PAIN REDUCTION TECHNIQUES PT / MANAGER OF OPERATIONS TO MONITOR FOR HYPO/HYPERGLYCEMIA AND CONDUCT ROUTINE FOOT INSPECTIONS. RECORD PATIENT REPORTED BLOOD SUGAR LEVELS AND NOTIFY PHYSICIAN AND/OR THE RN CLINICAL COMPONENT DESIGN ENGINEER FOR PHYSICIAN NOTIFICATION IF BLOOD SUGAR LEVELS ARE OUTSIDE ORDERED PARAMETERS. TEACH PATIENT/CAREGIVER ON DAILY FOOT INSPECTIONS PT TO ASSESS / MANAGER OF OPERATIONS TO MONITOR CARDIO/RESPIRATORY SYSTEM; AND NOTIFY THE PHYSICIAN AND/OR THE RN CLINICAL COMPONENT DESIGN ENGINEER FOR PHYSICIAN NOTIFICATION FOR EARLY SIGNS AND SYMPTOMS OF EXACERBATION OR DETERIORATION. PT/MANAGER OF OPERATIONS TO IDENTIFY FALL RISK FACTORS; EDUCATE THE PATIENT/CAREGIVER ON WAYS TO REDUCE FALL RISK FACTORS AND ESTABLISH HOME EXERCISE PROGRAM TO MINIMIZE FALL RISK. MAY TEACH THE PATIENT FLOOR RECOVERY WHEN CLINICALLY APPROPRIATE PT TO ASSESS / MANAGER OF OPERATIONS TO MONITOR FOR HEART FAILURE EXACERBATION AND RECORD PATIENT REPORTED WEIGHT, AND NOTIFY THE PHYSICIAN AND/OR THE RN CLINICAL COMPONENT DESIGN ENGINEER FOR PHYSICIAN NOTIFICATION OF HF EXACERBATION (2LB [...] Date/Time Encounter Type Admission Type Attending Clinicians [facility] Care Department Encounter ID Discharge Date Discharge Status Discharge Condition Discharge Reason Percent Goals Met 2024-07-11 00:00:00 2024-09-04 00:00:00 Outpatient NEW ADMISSION [facility] [id number] 2024-09-04 00:00:00 DISCHARGE TO HOME OR SELF CARE INDEPENDEN T IN THE HOME HH - NO LONGER REQUIRES SKILLED CARE 90.70
--- OUTSIDE RECORDS SUMMARY | 2024-10-17 10:33 | XMS_ITS | Clinical Summary ---
Author Organization Healthcare Address [address] [place] [address] Care Team Providers Care Pump House Operator Name Role Phone Mango Albert MD Primary Care Provider [phone] Allergies Active Allergy Reactions Criticality Noted Date [...] by mouth every night. 4 Active Multiple Vitamins-[place] als (multivitamin with minerals) tablet Take 1 [...] place to sleep or slept in a care home (including now)? No 08/27/2023 Utilities Answer Date [...] - Risk 60-74 years 1-dose series) 2019 [id number] Vaccine (2 - Erasto risk series) 12/24/2020 [...] this topic Medical Devices Implanted Type Area Limehouse Worker Device Identifier Shelf Expiration Date Model / Serial / Lot Graft Dura Repair 2x2 [employer] - [id number] Implanted:Qty: 1 on 08/23/2023 by Nahum Peterson MD at [facility] Left: Brain [employer] [facility]-[id number] 10/24/2025 [id number] .[id number] / / [id number] Cover, Neuro Snelling Lp 17mm - [id number] Implanted:Qty: 1 on 08/23/2023 by Nahum Peterson MD at [facility]-[id number] / / Plate, 2 Hole Low Profile - [id number] Implanted:Qty: 1 on 08/23/2023 by Nahum Peterson MD at [facility]-194536 [id number] / / Screw Ti Matrixneuro Selfdrill 4mm - [id number] Implanted:Qty: 1 on 08/23/2023 by Nahum Peterson MD at [facility]417535 [id number] .[id number] / / Procedures Procedure Name Priority Date/Time Associated Diagnosis Comments HEPATITIS C ANTIBODY - ED W/REFLEX TO HCV QUANT PCR STAT 08/20/2023 6:36 AM EDT from Last 3 Months or Most Recently Relevant to Health Maintenance Results * Hepatitis C Antibody - ED (08/20/2023 6:36 AM EDT) Hepatitis C Antibody Negative Negative 08/20/2023 7:37 AM EDT [facility] Blood Venous blood specimen / Unknown Venipuncture / Unknown 08/20/2023 6:36 AM EDT 08/20/2023 6:58 AM EDT Neftaly Botello MD LAB BLOOD ORDERABLES Final Re sult [facility] [address] [place] [address] from Last 3 Months or Most Recently Relevant to Health Maintenance Insurance MEDICARE ANTHEM Advance Directives * Full Code (Latest Code Status on File) Date Activated Date Inactivated Comments 08/20/2023 1:42 PM 09/05/2023 7:24 PM Question Answer Comments Patient has decision-making capacity? Yes Care Teams Pump House Operator Relationship Specialty Start Date End Date Mango Albert MD [address] [place] [address] PCP - General Internal Medicine 08/20/23
--- OUTSIDE RECORDS SUMMARY | 2024-10-17 10:33 | XMS_ITS | Patient Health Record ---
Author Organization [facility] Address [address] [facility] [address] [facility] [address] [place] [address] Care Team Providers Care Slate Splitter Name Role Phone Mango Albert Primary Care Provider [phone] Aubrie Garza Unavailable [phone] Migration, Provider Unavailable Unavailable Allergies Allergen (clinical [...] review and pick correct strength-formulatio n from get2playan options. If intended option is not shown, [...] Immunizations Vaccine Route Administration Date Status Comme [facility] Prevnar PCV-13 (Pneumococcal conjugate 13) IM [...] complication (E11.69) Active confirmed Problem Mixed hyperlipidemia (848457843) Mixed hyperlipidemia (E78.2) Active confirmed Problem Hypomagnesemia (249187393) Hypomagnesemia (E83.42) Active confirmed Problem Obstructive sleep apnea syndrome (disorder) (62200914) Obstructive sleep apnea (adult) (pediatric) (G47.33) Active confirmed Problem Essential hypertension (90823170) Essential (primary) hypertension (I10) Active confirmed Problem Mucopurulent chronic bronchitis (77296844) Mucopurulent chronic bronchitis (J41.1) Active confirmed Problem Etzrb-fk-mvpnhsj hypoxemic respiratory failure (45179032101870637) Acute and chronic respiratory failure with hypoxia (J96.21) Active confirmed Problem Nicotine dependence (77115593) Personal history of nicotine dependence (Z87.891) Active confirmed Problem Mixed anxiety and depressive disorder (003778998) Depression with anxiety (F41.8) Active confirmed Problem Gastroesophageal reflux disease (241538622) GERD without esophagitis (K21.9) Active confirmed Problem Tobacco abuse (8207732633) Tobacco abuse (Z72.0) Active confirmed Problem Acute exacerbation o f chronic obstructive airways disease (913723059) COPD exacerbation (J44.1) Active confirmed Problem Obese class II (574501428016979) BMI 39.0-39.9,adult (Z68.39) Active confirmed Problem Gastroesophageal reflux disease with esophagitis (disorder) (614099008) GERD with esophagitis (K21.0) Active confirmed Problem COPD - Chronic obstructive pulmonary disease (89561040) Chronic obstructive pulmonary disease, unspecified COPD type (J44.9) Active confirmed Problem Acquired hypothyroidism (168568951) Acquired hypothyroidism (E03.9) Active confirmed Problem Morbid obesity (302316187) Morbid obesity due to excess calories (E66.01) Active confirmed Problem Insomnia disorder related to another mental disorder (76227813) Psychophysiological insomnia (F51.04) Active confirmed Problem Body mass index 40+ - severely obese (169993169) Body mass index (BMI) of 40.1-44.9 in adult (Z68.41) Active confirmed Problem Pulmonary nodule (995299377) Pulmonary nodule (R91.1) Active confirmed Problem Dysphagia (73258584) Dysphagia, unspecified type (R13.10) Active confirmed Problem Obstructive sleep apnea syndrome (99710020) DANNY on CPAP (G47.33) Active confirmed Problem Familial hypercholesterolemia (509544179) Familial hypercholesterolemia (E78.01) Active confirmed Problem Tobacco use (013330392) Tobacco use disorder (F17.200) Active confirmed Problem Acute exacerbation o f chronic obstructive airways disease (195858300) Acute exacerbation of chronic obstructive pulmonary disease (COPD) (J44.1) Active confirmed Problem Chronic obstructive lung disease co-occurrent with acute bronchitis (221699673687951) Acute bronchitis with chronic obstructive pulmonary disease (COPD) (J44.0) Active confirmed Problem Recurrent major depression (09769917) Major depressive disorder, recurrent episode with anxious distress (F33.9) Active confirmed Problem Small cell lung cancer (919384739) Small cell lung cancer (C34.90) Active confirmed Problem Metastasis to brain (02784080) Metastasis to brain (C79.31) Active confirmed Vital Signs Heart Rate 88 /min 07/22/2024 Temperature 97.6 degrees Fahrenheit 07/22/2024 Blood pressure diastolic 72 mm Hg 07/22/2024 Height 5 ft 5 in in 07/22/2024 Blood pressure systolic 126 mm Hg 07/22/2024 Weight 193 lbs 07/22/2024 BMI 32.11 kg/m2 07/22/2024 Encounters Encounter Location Date Provider Diagnosis [facility] [address] [facility] [address] [place] [address] 06/29/2024 Provider Migration Depression with anxiety F41.8 ; Major depressive disorder, recurrent episode with anxious distress F33.9 and Sore throat J02.9 [facility] [place] [address] [address] 07/22/2024 Aubrie Garza Small cell lung canc er C34.90 ; Encounter for Medicare annual wellness exam Z00.00 ; Metastasis to brain C79.31 ; Depression with anxiety F41.8 ; Type 2 diabetes mellitus with other specified complication E11.69 ; Hyponatremia E87.1 ; Hypomagnesemia E83.42 ; Acquired hypothyroidism E03.9 ; Mixed hyperlipidemia E78.2 ; Obstructive sleep apnea (adult) (pediatric) G47.33 and Essential (primary) hypertension I10 [facility] [address] [facility] [address] [place] [address] 10/31/2023 Aubriedenis Garza [facility] [place] [address] [place] [address] [place] [address] 12/06/2023 Aubrie McNees [facility] [place] [address] [facility] [address] [place] [address] 12/25/2023 Mango Albert Major depressive disorder, recurrent episode with anxious distress F33.9 [facility] [place] [address] [facility] [address] [place] [address] 12/25/2023 Aubrie McNees [facility] [address] [place] [address] 07/09/2024 Mango Albert [facility] [address] [place] [address] 07/22/2024 Aubrie MarcoNeavery [facility] [address] [place] [address] 07/22/2024 Mango Albert Assessments Encounter Date Diagnosis [...] 12/22/2015 H-LIPID PANEL 06/19/2014 H-TSH 06/23/2014 C-CMP 09/05/2016 C-CMP 05/07/2013 C-CMP 06/24/2013 C-CMP 05/01/2020 C-LIPID PANEL 05/01/2020 C-LIPID PANEL 05/07/2013 C-LIPID PANEL 09/05/2016 C-LIPID PANEL 06/24/2013 C-TSH 06/24/2013 C-TSH 09/05/2016 C-TSH 08/17/2015 C-TSH 05/07/2013 C-HGBA1C 09/05/2016 C-HGBA1C 07/01/2013 M-Comprehensive Metabolic Panel 09/04/19 22 M-Comprehensive Metabolic Panel 07/23/19 25 M-Comprehensive Metabolic Panel 11/23/19 19 M-Hemoglobin A1C 11/22/2018 M-Hemoglobin A1C 07/22/2024 M-Hemoglobin A1C 09/03/2021 M-Magnesium 07/22/2024 M-Lipid Panel 11/22/2018 M-Lipid Panel 09/03/2021 M-Thyroid Stimulating Hormone 09/03/2021 M-Thyroid Stimulating Hormone 11/22/2018 Insurance Providers Payer Name Payer Address Payer Phone Subscriber Number Group Number Insured Name Patient Relationship to Insured Coverage Start Date Coverage End Date [place] [address] [place] [address] [id number] Shantal Stanford Self - patient is the insured [facility] [address] [place] [address] [id number] Shantal Stanford Self - patient is the insured [facility] [address] [place] [address] [phone] [id number] Shantal Stanford Self - patient is [...] on brain 08/20/23 Hospitalization History Reason Date(Month/Year) [facility] Pneumonia 07/11- [place] - stage 4 cancer 08/17-09/05/2023 rhinovirus 03/2020 [facility]-pneumonia 03/2019 pneumonia 03/2015 COPD 2013 above
--- OUTSIDE RECORDS SUMMARY | 2024-10-17 10:33 | XMS_ITS ---
Author Organization Healthcare Address [address] [place] [address] Care Team Providers Care Glass Belt Sander Name Role Phone Mango Albert MD Primary Care Provider [phone] Active Problems Problem Noted Date Diagnosed Date [...]
[2024-10-17 10:51] LABS: Hematocrit 33.1 % (37.0-47.0); Hemoglobin 10.2 g/dL (12.2-16.2); Immature Granulocytes % 0.3 %; Mean Corpuscular HGB Conc 30.8 g/dL (31.8-35.4); Mean Corpuscular Hemoglobin 29.2 pg (27.0-31.2); Mean Corpuscular Volume 94.8 fl (81-99); Nucleated Red Blood Cells % 0 %; Platelet Count 189 K/mm3 (142-424); Red Blood Count 3.49 M/mm3 (4.20-5.40); Red Cell Distribution Width-SD 47.4 fL; White Blood Count 7.6 K/mm3 (4.8-10.8)
[2024-10-17 10:58] LABS: Albumin Level 4.5 g/dl (3.5-5.0); Chloride 88 mmol/L (98-107); Potassium 3.9 mmoL/L (3.5-5.1); Sodium 133 mmol/L (136-145)
[2024-10-17 11:00] LABS: Blood Urea Nitrogen 11 mg/dl (7-17); Creatinine,Serum 0.70 mg/dl (0.52-1.04); Estimated Glomerular Filt Rate 84 ml/min (>60); GFR (African American) 102 ML/MIN (>60)
[2024-10-17 11:01] LABS: Alanine Aminotransferase 18 U/L (12-78); Albumin/Globulin Ratio 1.0 (1.1-1.8); Alkaline Phosphatase 88 U/L (38-126); Anion Gap 8.9 mEq/L (5-15); Aspartate Amino Transferase 30 U/L (14-36); Bilirubin,Total 0.5 mg/dl (0.2-1.3); Calcium 9.2 mg/dl (8.4-10.2); Carbon Dioxide 40 mmol/L (22.0-30.0); Globulin 4.7 g/dL (1.3-3.2); Glucose 175 mg/dl (74-100); Total Protein,Serum 9.2 g/dl (6.3-8.2)
[2024-10-17 11:31] LABS: Thyroid Stimulating Hormone 10.50 uIU/mL (0.465-4.68)
== END 2024-10-17 11:36 | disposition home or self-care (01) ==
LOC: INF 10:24
PROVIDERS: PCP Internal Medicine Adolescent Medicine; Visit Provider Internal Medicine Medical Oncology
DX: C34.90 Malignant neoplasm of unspecified part of unspecified bronchus or lung (principal); Z79.899 Other long term (current) drug therapy
CPT/HCPCS: 36415; 80053; 82024; 82533; 84443; 85025

== ENCOUNTER 2024-11-06 09:31 | Outpatient (CLI) | payer MEDICARE, BC, SELFPAY ==
--- OUTSIDE RECORDS SUMMARY | 2024-06-29 17:30 | XMS_ITS ---
Author Organization [facility] Address [address] [place] [address] Care Team Providers Care Air Compressor Engineer Name Role Phone Mango Albert Primary Care Provider Migration, Provider Unavailable Unavailable Allergies Allergen (clinical drug ingredient) Drug/Non Drug Allergy documented on EMR Reaction Allergy Type Onset Date Status levetiracetam Keppra Unknown Drug Allergy Act farideh Penicillin Unknown Drug Allergy Active [facility] FOR VISIT [facility] Encounter Medications Medication SIG (Take, Route, Frequency, Duration) Notes Start Date End Date Status Vitamin D3 25 MCG 1 tab(s) orally once a day Active Vitamin B1 50 MG 1 TAB(S) ORALLY ONCE A DAY *Please review and pick correct strength-formulat ion from [facility] options. If intended option is not shown, discontinue and re-order from Quick Search* Active Acyclovir 400 MG 1 tab(s) orally once a day; Duration: 90 days prn Active Vitamin B-12 50 MCG 1 tab(s) orally once a day Active Ipratropium-Albuterol 0.5-2.5 (3) MG/3ML 3 mL by nebulizer 4 times a day; Duration: 90 days Active Prochlorperazine Maleate 10 MG 1 tab(s) orally 3 times a day prn Active ALBUTEROL (EQV-PROVENTIL HFA) 90 MCG/INH USE 2 INHALATIONS BY MOUTH INHALED EVERY 2 HOURS DIRECTED . ROOM MAID RECOMMENDS NOT TO EXCEED 12 INHALATIONS A DAY; Duration: 34 *Please review for potential replacement for e-prescription and drug interaction check* Active oxyCODONE HCl 5 MG 1 tab(s) orally every 6 hours prn; Duration: 30 days Metastatic lung cancer pain 10/04/2023 Active Ondansetron HCl 8 MG 1 tab(s) orally 2 times a day prn Active Narcan 4 MG/0.1ML 1 spray(s) intranasally once 10/06/2023 Active amLODIPine Besylate 5 MG 1 tab(s) orally once a day; Duration: 90 days Active Bisoprolol Fumarate 5 MG 1 tab(s) orally once a day; Duration: 30 days Active busPIRone HCl 10 MG 1 tab(s) orally 3 times a day; Duration: 90 days Active Montelukast Sodium 10 MG 1 tab(s) orally once a day; Duration: 30 day(s) Active Diflucan 150 MG 1 tab(s) orally once today and repeat in 3 days if needed 10/31/2023 Active Losartan Potassium 100 MG 1 tab(s) orally once a day; Duration: 90 days Active Nystatin 340416 UNIT/ML 5 ML orally 4 times a day; Duration: 15 days swish and swallow 09/22/2023 Active Nystatin 900899 UNIT/GM 1 denise applied topically 2 times a day 09/14/2023 Active Protonix 40 MG TAKE 1 TABLET BY MOUTH DAILY orally once a day; Duration: 90 days Active Atorvastatin Calcium 80 MG 1 tab(s) orally once a day; Duration: 90 Active Euthyrox 200 MCG (0.2 MG) 1 TAB(S) ORALLY ONCE A DAY; Duration: 90 DAYS *Please review and pick correct strength-formulat ion from [employer] options. If intended option is not shown, discontinue and re-order from Quick Search* Active Synthroid 25 MCG 1 tab(s) orally once a day; Duration: 90 days Active Trelegy Ellipta 200 MCG-62.5 MCG-25 MCG/INH 1 PUFF(S) INHALED ONCE A DAY; Duration: 90 DAYS *Please review and pick correct strength-formulat ion from [employer] options. If intended option is not shown, discontinue and re-order from Quick Search* Active Famotidine 40 MG 1 tab(s) orally once a day (at bedtime); Duration: 90 days 02/24/2023 Active Effexor XR 75 MG 1 cap(s) orally once a day; Duration: 90 days Active clonazePAM 0.5 MG 1 tab(s) orally 2 times a day; Duration: 90 days 12/25/2023 Active Cetirizine HCl 10 MG 1 tab(s) orally once a day Active OXYLITE OXYGEN DIRECTED DX: COPD DIRECTED *Please review for potential replacement for e-prescription and drug interaction check* 05/19/2020 Active Fluticasone Propionate 50 MCG/ACT 1 spray(s) in each nostril once a day; Duration: 30 days Active Levocetirizine Dihydrochloride 5 MG 1 tab(s) orally once a day (in the evening); Duration: 90 days 06/10/2022 Active Encounters Encounter Location Date Provider Diagnosis [facility] [address] [facility] [address] [place] [address] 06/29/2024 Provider Migration Depression with anxiety F41.8 ; Major depressive disorder, recurrent episode with anxious distress F33.9 and Sore throat J02.9 Assessments Encounter Date Diagnosis (ICD Code) Assessment Notes Treatment Notes Treatment Clinical Notes Section Notes 06/29/2024 Depression with anxiety (ICD-10 - F41.8) 06/29/2024 Major depressive disorder, recurrent episode with anxious distress (ICD-10 - F33.9) 06/29/2024 Sore throat (ICD-10 - J02.9) Plan Of Treatment Medication Medication Name Sig Start Date Stop Date Notes Ipratropium-Albuterol 0.5-2.5 (3) MG/3ML 3 mL by nebulizer 4 times a day; Duration: 90 days ALBUTEROL (EQV-PROVENTIL HFA) 90 MCG/INH USE 2 INHALATIONS BY MOUTH INHALED EVERY 2 HOURS DIRECTED . ROOM MAID RECOMMENDS NOT TO EXCEED 12 INHALATIONS A DAY; Duration: 34 *Please review for potential replacement for e-prescription and drug interaction check* oxyCODONE HCl 5 MG 1 tab(s) orally ever y 6 hours prn; Duration: 30 days 10/04/2023 Metastatic lung cancer pain Narcan 4 MG/0.1ML 1 spray(s) intranasally once 10/06/2023 amLODIPine Besylate 5 MG 1 tab(s) orally once a day; Duration: 90 days Bisoprolol Fumarate 5 MG 1 tab(s) orally once a day; Duration: 30 days busPIRone HCl 10 MG 1 tab(s) orally 3 times a day; Duration: 90 days Montelukast Sodium 10 MG 1 tab(s) orally once a day; Duration: 30 day(s) Diflucan 150 MG 1 tab(s) orally once today and repeat in 3 days if needed 10/31/2023 Losartan Potassium 100 MG 1 tab(s) orally once a day; Duration: 90 days Nystatin 976819 UNIT/ML 5 ML orally 4 times a day; Duration: 15 days 09/22/2023 swish and swallow Protonix 40 MG TAKE 1 TABLET BY KIRILL TH DAILY orally once a day; Duration: 90 days Atorvastatin Calcium 80 MG 1 tab(s) orally once a day; Duration: 90 Effexor XR 75 MG 1 cap(s) orally once a day; Duration: 90 days clonazePAM 0.5 MG 1 tab(s) orally 2 times a day; Duration: 90 days 12/25/2023 Progress Notes * Shantal LEON LDOB:1960 (64 yo F)Acc No.[id number]:06/29/2024 Patient: Shantal POTTER Provider: Cody Oneil :1960 A ge:63 Y S ex:Female Date:06/29/2024 Address:[address] [place], [place] [id number] Pcp:Mango Albert Subjective: * Chief Complaints: * 1 . [facility] En[facility]. * Medical History: * Medications: T aking Prochlorperazine Maleate 10 MG Tablet 1 tab(s) orally 3 times a day prn , Taking Ondansetron HCl 8 MG Tablet 1 tab(s) orally 2 times a day prn , Taking Vitamin D3 25 MCG Tablet 1 tab(s) orally once a day , Taking Acyclovir 400 MG Tablet 1 tab(s) orally once a day , Notes to Pharmacist: prn, Taking Vitamin B1 50 MG TABLET 1 TAB(S) ORALLY ONCE A DAY , Notes to Pharmacist: *Please review and pick correct strength-formulation from [facility] options. If intended option is not shown, discontinue and re-order from Quick Search*, Taking Vitamin B-12 50 MCG Tablet 1 tab(s) orally once a day , Taking Cetirizine HCl 10 MG Tablet 1 tab(s) orally once a day , Taking Fluticasone Propionate 50 MCG/ACT Suspension 1 spray(s) in each nostril once a day , Taking OXYLITE OXYGEN DIRECTED DX: COPD DIRECTED , Notes to Pharmacist: *Please review for potential replacement for e-prescription and drug interaction check*, Taking Levocetirizine Dihydrochloride 5 MG Tablet 1 tab(s) orally once a day (in the evening) , Taking Synthroid 25 MCG Tablet 1 tab(s) orally once a day , Taking Euthyrox 200 MCG (0.2 MG) TABLET 1 TAB(S) ORALLY ONCE A DAY , Notes to Pharmacist: *Please review and pick correct strength-formulation from [employer] options. If intended option is not shown, discontinue and re-order from Quick Search*, Taking Famotidine 40 MG Tablet 1 tab(s) orally once a day (at bedtime) , Taking Trelegy Ellipta 200 MCG-62.5 MCG-25 MCG/INH POWDER 1 PUFF(S) INHALED ONCE A DAY , Notes to Pharmacist: *Please review and pick correct strength-formulation from [employer] options. If intended option is not shown, discontinue and re-order from Quick Search*, Taking Nystatin 266515 UNIT/GM Ointment 1 denise applied topically 2 times a day * Allergies: P enicillin, Keppra. Objective: * Vitals: Assessment: * Assessment: 1. D epression with anxiety - F41.8 2 . M ajor depressive disorder, recurrent episode with anxious distress - F33.9 3 . S ore throat - J02.9 ? Plan: * Treatment: 2. M ajor depressive disorder, recurrent episode with anxious distress Refill clonazePAM Tablet, 0.5 MG, 1 tab(s), orally, 2 times a day, 90 days, 180 Tablet, Refills 1.? 3. S ore throat Start Nystatin Suspension, 666600 UNIT/ML, 5 ML, orally, 4 times a day, 15 days, 1, Refills 0, Notes to Pharmacist: swish and swallow. 4. O thers Refill oxyCODONE HCl Tablet, 5 MG, 1 tab(s), orally, every 6 hours prn, 30 days, 120, Refills 0, Notes to Pharmacist: Metastatic lung cancer pain; S tart Narcan Liquid, 4 MG/0.1ML, 1 spray(s), intranasally, once, 1, Refills 0; S tart ALBUTEROL (EQV-PROVENTIL HFA) AEROSOL, 90 MCG/INH, USE 2 INHALATIONS BY MOUTH INHALED EVERY 2 HOURS DIRECTED . ROOM MAID RECOMMENDS NOT TO EXCEED 12 INHALATIONS A DAY, 34, 13.4 GRAM, Refills 9, Notes to Pharmacist: *Please review for potential replacement for e-prescription and drug interaction check*; S tart Diflucan Tablet, 150 MG, 1 tab(s), orally, once today and repeat in 3 days if needed, 2, Refills 0; S tart Protonix Tablet Delayed Release, 40 MG, TAKE 1 TABLET BY MOUTH DAILY, orally, once a day, 90 days, 90, Refills 2; R efill Losartan Potassium Tablet, 100 MG, 1 tab(s), orally, once a day, 90 days, 90 Tablet, Refills 1;?Refill amLODIPine Besylate Tablet, 5 MG, 1 tab(s), orally, once a day, 90 days, 90 Tablet, Refills 1; R efill Effexor XR Capsule Extended Release 24 Hour, 75 MG, 1 cap(s), orally, once a day, 90 days, 90, Refills 2; S tart Atorvastatin Calcium Tablet, 80 MG, 1 tab(s), orally, once a day, 90, 90, Refills 2; S tart Montelukast Sodium Tablet, 10 MG, 1 tab(s), orally, once a day, 30 day(s), 30, Refills 5; S tart Bisoprolol Fumarate Tablet, 5 MG, 1 tab(s), orally, once a day, 30 days, 30, Refills 7; S tart Ipratropium-Albuterol Solution, 0.5-2.5 (3) MG/3ML, 3 mL, by nebulizer, 4 times a day, 90 days, 1080 ml, Refills 2. * * Electronic signature of Prov ider Migration on 11/06/2024 at 09:34 AM EDT Sign off status: Pending * Provider: Cody albright Migration Date: 0 06/29/2024 Generated for Printi ng/Corinna/Melitting on: 0 11/06/2024 09:34 AM EDT
--- OUTSIDE RECORDS SUMMARY | 2024-10-21 08:00 | XMS_ITS ---
Author Organization [facility] [place] Address [address] [place] [address] Care Team Providers Care Fax Machine Repairer Name Role Phone Mango Albert Primary Care Provider [phone] Aubrie Garza Unavailable [phone] Allergies Allergen (clinical drug ingredient) Drug/Non Drug Allergy documented on EMR Reaction Allergy Type Onset Date Status levetiracetam Keppra Unknown Drug Allergy Act farideh Penicillin Unknown Drug Allergy Active Results Component Value Reference Range Notes COMPREHENSIVE METABOLIC RADHA Welch (30366) Reviewed date:10/22/2024 04:06:15 PM Interpretation: Performing Lab:CB, [facility] Mlha2696 MitteEssex [facility], [facility] HomeCmlwPY[address] Ludwin Sidhu Notes/Report: NON-FASTING; NON-FASTING; NON-FASTING; NON-FASTING; [...] Reviewed date:10/22/2024 04:06:15 PM Interpretation: Performing Lab:ALEKSANDR Aware Labse1355 Mysportsbrands, [employer])XzysMU[address] Ludwin Sidhu Notes/Report: NON-FASTING; NON-FASTING; NON-FASTING; NON-FASTING; NON-FAST MAGNESIUM 1.6 1.5-2.5 mg/dL CBC (INCLUDES DIFF/PLT) (639 9) Reviewed date:10/22/2024 04:06:16 PM Interpretation: Performing Lab:ALEKSANDR HealthMicro-AnchorFreee1355 [employer], [employer])CxocLP[address] Ludwin Sidhu Notes/Report: NON-FASTING; NON-FASTING; NON-FASTING; NON-FASTING; [...] MPV 8.6 7.5-12.5 fL ABSOLUTE NEUTROPHILS 7746 7711-5918 cells/uL ABSOLUTE LYMPHOCYTES 0698 087-1828 cells/uL ABSOLUTE MONOCYTES 508 200-950 cells/uL ABSOLUTE EOSINOPHILS 0 15-500 cells/uL ABSOLUTE BASOPHILS 9 0-200 cells/uL NEUTROPHILS 82.4 LYMPHOCYTES 12.1 MONOCYTES 5.4 EOSINOPHILS 0.0 BASOPHILS 0.1 HEMOGLOBIN A1c (496) Reviewed date:10/22/2024 04:06:16 PM Interpretation: Performing Lab:ALEKSANDR HealthMicro-Tunes.com Wuzs1090 Ygline.comtePenn State Health [facility] Spirit [facility] Center[address] Ludwin Sidhu Notes/Report: NON-FASTING; NON-FASTING; NON-FASTING; NON-FASTING; [...] diagnosis of diabetes in children. According to [place] Diabetes Association (ADA) guidelines, hemoglobin A1c <7.0% represents optimal control in non- diabetic patients. Different metrics may apply to specific patient populations. Standards of Medical Care in Diabetes(ADA). TSH W/REFLEX TO FT4 (71619) Reviewed date:10/22/2024 04:06:16 PM Interpretation: Performing Lab:ALEKSANDR HealthMicro-[place] Wapa0867 Best TeacherEssex County Hospital, St. Gabriel HospitalRclgXX[address] Ludwin Sidhu Notes/Report: NON-FASTING; NON-FASTING; NON-FASTING; NON-FASTING; [...] review and pick correct strength-formulati on from Otto Clavespan options. If intended option is not shown, [...] Vital Signs Temperature 98 degrees Fahrenheit 10/21/2024 Blood pressure systolic 145 mm Hg 10/22/19 25 Blood pressure diastolic 80 mm Hg 025 Heart Rate 92 /min 10/21/2024 Height 5 ft 5 in in 10/21/2024 Weight 188 lbs 10/21/2024 BMI 31.28 kg/m2 10/21/2024 Encounters Encounter Location Date Provider Diagnosis [address] [address] 10/21/2024 Aubrie McNees Small cell lung canc [...] Next Appt Details Follow Up: 3 Months,prn, [place] son: Progress Notes * Shantal LEON LDOB:1960 (64 yo F)Acc No.[id number]:10/21/2024 Progress Notes Patient: Shantal POTTER Provider: Kevon Garza APRN :1960 A ge:64 Y S ex:Female Date:10/21/2024 Address:[address] [place] [address] [address], [place] Pcp:Mango Albert Subjective: * Chief Complaints: [...] a molly , COPD 2012, pneumonia 03/2015, [facility]-pneumonia 03/2019, rhinovirus 03/2020, - stage 4 cancer 08/17-09/05/2023, [facility] Pneumonia 07/11-. * Family History: F ather: [...] *Please review and pick correct strength-formulation from [employer] options. If intended option is not shown, [...] - % * A BSOLUTE NEUTROPHILS 7746 2725-5878 - cells/uL * L YMPHOCYTES 12.1 - % * A BSOLUTE LYMPHOCYTES 8830 078-1244 - cells/uL * M ONOCYTES 5.4 - [...] PM EDT > labs look good Elian [facility] 10/22/2024 04:06:08 PM EDT > pt notifiedThis [...] 12:51:24 PM EDT > labs look good [facility] 10/22/2024 04:06:08 PM EDT > pt notifiedThis lab was reviewed by Evaristo Plummer on 10/22/2024 at 16:06 PM EDT Notes: Will check A1c with upcoming oncology labs??5.?Hyponatremia?LAB: COMPREHENSIVE METABOLIC PANEL (42108)* Value Reference Range G LUCOSE 178 H [...] to labs??7.?Acquired hypothyroidism?LAB: TSH W/REFLEX TO FT4 (78487)* Value Reference Range T SH W/REFLEX TO FT4 3.99 0.40-4.50 - mIU/L * Aubrie Garza 10/23/19 12:51:24 PM EDT > labs look good Evairsto Plummer 10/22/2024 04:06:08 PM EDT > pt [...] true * Provider: Kevon Garza APRN Date: 10/21/2024 Generated for Rasheed park/Corinna/Pedrosmitting on: 11/06/2024 09:34 AM EDT History and Physical Notes * [...]
--- OUTSIDE RECORDS SUMMARY | 2024-11-06 09:35 | XMS_ITS | Clinical Summary ---
Author Organization [facility] Address [address] [place] [address] Care Team Providers Care Investigations Director Name Role Phone Mango Albert MD Primary Care Provider [phone] Allergies Active Allergy Reactions Criticality Noted Date [...] by mouth every night. 4 Active Multiple Vitamins-Car Rental Agent als (multivitamin with minerals) tablet Take 1 [...] place to sleep or slept in a fci (including now)? No 08/27/2023 Utilities Answer Date [...] - Risk 60-74 years 1-dose series) 2019 MKO-CAMEP-99 Vaccine (2 - Erasto risk series) 12/24/2020 [...] this topic Medical Devices Implanted Type Area Wad Blanking Press Adjuster Device Identifier Shelf Expiration Date Model / Serial / Lot Graft Dura Repair 2x2 Synthecel - [id number] Implanted:Qty: 1 on 08/23/2023 by Nahum Peterson MD at [facility] Left: Brain ChorPpay [facility]-[id number] 10/24/2025 [id number] .[id number] / / [id number] Cover, Neuro Ketan Lp 17mm - [id number] Implanted:Qty: 1 on 08/23/2023 by Nahum Peterson MD at [facility]-047191 421.527 / / Plate, 2 Hole Low Profile - [id number] Implanted:Qty: 1 on 08/23/2023 by Nahum Peterson MD at [facility]-[id number] 421.502 / / Screw Ti Matrixneuro Selfdrill 4mm - [id number] Implanted:Qty: 1 on 08/23/2023 by Nahum Peterson MD at [facility]575625 [id number] .[id number] / / Procedures Procedure Name Priority Date/Time Associated Diagnosis Comments HEPATITIS C ANTIBODY - ED W/REFLEX TO HCV QUANT PCR STAT 08/20/2023 6:36 AM EDT from Last 3 Months or Most Recently Relevant to Health Maintenance Results * Hepatitis C Antibody - ED (08/20/2023 6:36 AM EDT) Hepatitis C Antibody Negative Negative 08/20/2023 7:37 AM EDT [facility] Blood Venous blood specimen / Unknown Venipuncture / Unknown 08/20/2023 6:36 AM EDT 08/20/2023 6:58 AM EDT Neftaly Botello MD LAB BLOOD ORDERABLES Final Re sult [facility] [address] [place] [address] from Last 3 Months or Most Recently Relevant to Health Maintenance Insurance MEDICARE ANTHEM Advance Directives * Full Code (Latest Code Status on File) Date Activated Date Inactivated Comments 08/20/2023 1:42 PM 09/05/2023 7:24 PM Question Answer Comments Patient has decision-making capacity? Yes Care Teams Investigations Director Relationship Specialty Start Date End Date Mango Albert MD [address] [place] [address] PCP - General Internal Medicine 08/20/23
--- OUTSIDE RECORDS SUMMARY | 2024-11-06 09:35 | XMS_ITS ---
Author Organization [facility] Address [address] [place] [address] Care Team Providers Care Invoicing Machine Operator Name Role Phone Mango Albert MD Primary Care Provider [phone] Active Problems Problem Noted Date Diagnosed Date [...]
--- OUTSIDE RECORDS SUMMARY | 2024-11-06 09:35 | XMS_ITS | Patient Health Record ---
Author Organization [facility] Address [address] [facility] [address] [place] [address] Care Team Providers Care Fleet Manager Name Role Phone Mango Albert Primary Care Provider [phone] Aubrie Garza Unavailable [phone] Migration, Provider Unavailable Unavailable Allergies Allergen (clinical drug ingredient) Drug/Non Drug Allergy documented on EMR Reaction Allergy Type Onset Date Status levetiracetam Keppra Unknown Drug Allergy Act farideh Penicillin Unknown Drug Allergy Active Results Component Value Reference Range Notes COMPREHENSIVE METABOLIC RADHA Welch (06531) Reviewed date:10/22/2024 04:06:15 PM Interpretation: Performing Lab:CB, [facility] [address], [facility] CenterVlgqJQ[address] Ludwin Sidhu Notes/Report: NON-FASTING; NON-FASTING; NON-FASTING; NON-FASTING; [...] Reviewed date:10/22/2024 04:06:15 PM Interpretation: Performing Lab:ALEKSANDR [employer] [address] [employer], Zevez CorporationTufpSN[address] Ludwin Sidhu Notes/Report: NON-FASTING; NON-FASTING; NON-FASTING; NON-FASTING; NON-FAST MAGNESIUM 1.6 1.5-2.5 mg/dL CBC (INCLUDES DIFF/PLT) (639 9) Reviewed date:10/22/2024 04:06:16 PM Interpretation: Performing Lab:ALEKSANDR [employer]-S[employer]amese[address], Zevez CorporationYnkwAN[address] Ludwin Sidhu Notes/Report: NON-FASTING; NON-FASTING; NON-FASTING; NON-FASTING; [...] MPV 8.6 7.5-12.5 fL ABSOLUTE NEUTROPHILS [phone] cells/uL ABSOLUTE LYMPHOCYTES [phone] cells/uL ABSOLUTE MONOCYTES 508 200-950 cells/uL ABSOLUTE EOSINOPHILS 0 15-500 cells/uL ABSOLUTE BASOPHILS 9 0-200 cells/uL NEUTROPHILS 82.4 LYMPHOCYTES 12.1 MONOCYTES 5.4 EOSINOPHILS 0.0 BASOPHILS 0.1 HEMOGLOBIN A1c (496) Reviewed date:10/22/2024 04:06:16 PM Interpretation: Performing Lab:ALEKSANDR [employer] Nrkw8921 [facility]teP[facility] Health[address] Ludwin Sidhu Notes/Report: NON-FASTING; NON-FASTING; NON-FASTING; NON-FASTING; [...] diagnosis of diabetes in children. According to [place] Diabetes Association (ADA) guidelines, hemoglobin A1c <7.0% represents optimal control in non- diabetic patients. Different metrics may apply to specific patient populations. Standards of Medical Care in Diabetes(ADA). TSH W/REFLEX TO FT4 (11420) Reviewed date:10/22/2024 04:06:16 PM Interpretation: Performing Lab:ALEKSANDR [employer] Dvwu1034 E[facility], [facility] SystemLphsGQ[address] Ludwin Sidhu Notes/Report: NON-FASTING; NON-FASTING; NON-FASTING; NON-FASTING; NON-FAST TSH W/REFLEX TO FT4 3.99 0.40-4.50 mIU/L Reason For Referral No Information Medications Medication SIG (Take, Route, Frequency, Duration) Notes Start Date End Date Status clonazePAM 0.5 MG 1 tab(s) orally 2 times a day; Duration: 90 days 12/25/2023 Active Atorvastatin Calcium 80 MG 1 tab(s) orally once a day; Duration: 90 Active Potassium 99 MG 1 tablet Orally Once a day Active Euthyrox 125 MCG 1 TAB(S) ORALLY ONCE A DAY; Duration: 90 days *Please review and pick correct strength-formulati on from Medispan options. If intended option is not shown, discontinue and re-order from Quick Search* Active Pantoprazole Sodium 40 MG TAKE 1 TABLET BY MOUTH ONCE DAILY; Duration: 90 Active dexAMETHasone 4 MG 1 tablet Orally 3 times a day Active Albuterol Sulfate HFA 108 (90 Base) MCG/ACT 1 puff as needed Inhalation every 4 hrs; Duration: 30 days Active Ipratropium-Albuterol 0.5-2.5 (3) MG/3ML 3 mL by nebulizer 4 times a day; Duration: 90 days Active busPIRone HCl 10 MG 1 tab(s) orally 3 times a day; Duration: 90 days Active Acyclovir 400 MG 1 tablet Orally daily Active Lomotil 2.5-0.025 MG 1 tablet as needed Orally Four times a day; Duration: 30 days As needed 10/21/2024 Active Trelegy Ellipta 200-62.5-25 MCG/ACT USE 1 INHALATION BY MOUTH ONCE DAILY; Duration: 90 Active oxyCODONE HCl 5 MG 1 tab(s) orally every 6 hours prn; Duration: 30 days Metastatic lung cancer pain 10/21/2024 Active Atezolizumab 840 MG/14ML as directed Intravenous Active Venlafaxine HCl ER 75 MG TAKE 1 CAPSULE BY MOUTH ONCE DAILY; Duration: 90 Active Montelukast Sodium 10 MG TAKE 1 TABLET BY MOUTH ONCE DAILY; Duration: 90 Active Immunizations Vaccine Route Administration Date Status Comme [facility] Prevnar PCV-13 (Pneumococcal conjugate 13) IM Intramuscular [...] complication (E11.69) Active confirmed Problem Mixed hyperlipidemia (099121777) Mixed hyperlipidemia (E78.2) Active confirmed Problem Hypomagnesemia (501636709) Hypomagnesemia (E83.42) Active confirmed Problem Obstructive sleep apnea syndrome (disorder) (77242483) Obstructive sleep apnea (adult) (pediatric) (G47.33) Active confirmed Problem Essential hypertension (99031943) Essential (primary) hypertension (I10) Active confirmed Problem Mucopurulent chronic bronchitis (62526414) Mucopurulent chronic bronchitis (J41.1) Active confirmed Problem Wejyr-xg-purwvmv hypoxemic respiratory failure (36845201943812213) Acute and chronic respiratory failure with hypoxia (J96.21) Active confirmed Problem Nicotine dependence (18885680) Personal history of nicotine dependence (Z87.891) Active confirmed Problem Mixed anxiety and depressive disorder (709879238) Depression with anxiety (F41.8) Active confirmed Problem Gastroesophageal reflux disease (593777438) GERD without esophagitis (K21.9) Active confirmed Problem Tobacco abuse (6817585231) Tobacco abuse (Z72.0) Active confirmed Problem Acute exacerbation o f chronic obstructive airways disease (066747233) COPD exacerbation (J44.1) Active confirmed Problem Obese class II (514936928914218) BMI 39.0-39.9,adult (Z68.39) Active confirmed Problem Gastroesophageal reflux disease with esophagitis (disorder) (003160013) GERD with esophagitis (K21.0) Active confirmed Problem COPD - Chronic obstructive pulmonary disease (42484989) Chronic obstructive pulmonary disease, unspecified COPD type (J44.9) Active confirmed Problem Acquired hypothyroidism (569547777) Acquired hypothyroidism (E03.9) Active confirmed Problem Morbid obesity (225639912) Morbid obesity due to excess calories (E66.01) Active confirmed Problem Insomnia disorder related to another mental disorder (77038450) Psychophysiological insomnia (F51.04) Active confirmed Problem Body mass index 40+ - severely obese (703053000) Body mass index (BMI) of 40.1-44.9 in adult (Z68.41) Active confirmed Problem Pulmonary nodule (912553768) Pulmonary nodule (R91.1) Active confirmed Problem Dysphagia (73416988) Dysphagia, unspecified type (R13.10) Active confirmed Problem Obstructive sleep apnea syndrome (45526241) DANNY on CPAP (G47.33) Active confirmed Problem Familial hypercholesterolemia (976590440) Familial hypercholesterolemia (E78.01) Active confirmed Problem Tobacco use (840602296) Tobacco use disorder (F17.200) Active confirmed Problem Acute exacerbation o f chronic obstructive airways disease (742530684) Acute exacerbation of chronic obstructive pulmonary disease (COPD) (J44.1) Active confirmed Problem Chronic obstructive lung disease co-occurrent with acute bronchitis (178817051714845) Acute bronchitis with chronic obstructive pulmonary disease (COPD) (J44.0) Active confirmed Problem Recurrent major depression (19878683) Major depressive disorder, recurrent episode with anxious distress (F33.9) Active confirmed Problem Small cell lung cancer (926938623) Small cell lung cancer (C34.90) Active confirmed Problem Metastasis to brain (76598878) Metastasis to brain (C79.31) Active confirmed Vital Signs Heart Rate 92 /min 10/21/2024 Temperature 98 degrees Fahrenheit 10/21/2024 Blood pressure diastolic 80 mm Hg 10/21/2024 Height 5 ft 5 in in 10/21/2024 Blood pressure systolic 145 mm Hg 10/21/2024 Weight 188 lbs 10/21/2024 BMI 31.28 kg/m2 10/21/2024 Encounters Encounter Location Date Provider Diagnosis [facility] [address] [place] [address] 06/29/2024 Provider Migration Depression with anxiety F41.8 ; Major depressive disorder, recurrent episode with anxious distress F33.9 and Sore throat J02.9 [facility] [address] [address] 07/22/2024 Aubrie McNees Small cell lung canc er C34.90 ; Encounter for Medicare annual wellness exam Z00.00 ; Metastasis to brain C79.31 ; Depression with anxiety F41.8 ; Type 2 diabetes mellitus with other specified complication E11.69 ; Hyponatremia E87.1 ; Hypomagnesemia E83.42 ; Acquired hypothyroidism E03.9 ; Mixed hyperlipidemia E78.2 ; Obstructive sleep apnea (adult) (pediatric) G47.33 and Essential (primary) hypertension I10 [facility] [place] [address] [address] 10/21/2024 Aubrie McNees Small cell lung canc er C34.90 ; Metastasis to brain C79.31 ; Depression with anxiety F41.8 ; Type 2 diabetes mellitus with other specified complication E11.69 ; Hyponatremia E87.1 ; Hypomagnesemia E83.42 ; Acquired hypothyroidism E03.9 ; Mixed hyperlipidemia E78.2 ; Obstructive sleep apnea (adult) (pediatric) G47.33 and Essential (primary) hypertension I10 [facility] [place] [address] [address] 12/06/2023 Aubrie McNees [facility] [place] [address] [address] 12/25/2023 Mango Albert Major depressive disorder, recurrent episode with anxious distress F33.9 [facility] [place] [address] [address] 12/25/2023 Aubrie McNees [facility] [address] [place] [address] 07/09/2024 Mango Besson [facility] [address] [place] [address] 07/22/2024 Aubrie McNees [facility] [address] [place] [address] 07/22/2024 Mango Besson [facility] [address] [place] [address] 10/21/2024 Aubrie McNees [facility] [address] [place] [address] 10/21/2024 Mango Albert [facility] [address] [place] [address] 10/21/2024 Mango Albert Assessments Encounter Date Diagnosis (ICD [...] and safety associated with these medications 10/21/2024 Small cell lung cancer (ICD-10 - C34.90) Oncology note reviewed Overall has tolerated treatments fairly well Add lomotil prn diarrhea. Keep FU with oncology Oxycodone PRN CSA UTD. rayna report reviewed and is appropriate - discussed ongoing use of controlled medication and safety associated with these medications 10/21/2024 Metastasis to brain (ICD-10 - C79.31) See plan above 07/22/2024 Metastasis to brain (ICD-10 - C79.31) See plan above 10/21/2024 Depression with anxiety (ICD-10 - F41.8) Well controlled on current regimen. 06/29/2024 Sore throat (ICD-10 - J02.9) 07/22/2024 Depression with anxiety (ICD-10 - F41.8) Patient is confused about her medications. She believes that she stopped her venalafaxine after discharge from [facility] due to confusion from d/c medication list. Advised her to check her meds against our updated list that we provided her today and call back and let me know. No changes made today. Has klonopin for PRN use 10/21/2024 Type 2 diabetes mellitus with other specified complication (ICD-10 - E11.69) Will check A1c with upcoming oncology labs 10/21/2024 Hyponatremia (ICD-10 - E87.1) Hyponatremia secondary to lung cancer On sodium replacement at home Repeat CMP today 07/22/2024 Type 2 diabetes mellitus with other specified complication (ICD-10 - E11.69) Will check A1c with upcoming oncology labs 07/22/2024 Hyponatremia (ICD-10 - E87.1) Hyponatremia secondary to lung cancer On sodium replacement at home Repeat CMP with upcoming oncology labs. 10/21/2024 Hypomagnesemia (ICD-10 - E83.42) Magnesium level added to labs 10/21/2024 Acquired hypothyroidism (ICD-10 - E03.9) On synthroid, repeat TSH today 07/22/2024 Hypomagnesemia (ICD-10 - E83.42) Magnesium replacement during inpatient stay Will repeat with upcoming labs to confirm stability 07/22/2024 Acquired hypothyroidism (ICD-10 - E03.9) Recent TSH around 6 Synthroid increased, will recheck at FU 10/21/2024 Mixed hyperlipidemia (ICD-10 - E78.2) On statin, tolerates well 10/21/2024 Obstructive sleep apnea (adult) (pediatric) (ICD-10 - G47.33) Tolerates CPAP with improvement of daytime somnolence 07/22/2024 Mixed hyperlipidemia (ICD-10 - E78.2) On statin, tolerates well 07/22/2024 Obstructive sleep apnea (adult) (pediatric) (ICD-10 - G47.33) Tolerates CPAP with improvement of daytime somnolence 10/21/2024 Essential (primary) hypertension (ICD-10 - I10) BLood pressure near goal. Will cont to monitor 07/22/2024 Essential (primary) hypertension (ICD-10 - I10) BLood pressure at goal. No indication to restart beta patti at this time Plan Of Treatment Pending Test Test Name Order Date Mammogram : Bilateral 01/15/2018 Mammogram : Bilateral 11/01/2012 H-BUN 12/22/2015 H-CREATININE SERUM 12/22/2015 H-LIPID PANEL 06/19/2014 H-TSH 06/23/2014 C-CMP 06/24/2013 C-CMP 05/07/2013 C-CMP 09/05/2016 C-CMP 05/01/2020 C-LIPID PANEL 05/01/2020 C-LIPID PANEL 06/24/2013 C-LIPID PANEL 05/07/2013 C-LIPID PANEL 09/05/2016 C-TSH 09/05/2016 C-TSH 06/24/2013 C-TSH 05/07/2013 C-TSH 08/17/2015 C-HGBA1C 07/01/2013 C-HGBA1C 09/05/2016 M-Comprehensive Metabolic Panel 09/04/19 22 M-Comprehensive Metabolic [...] End Date [place] [address] [place] [address] [id number] Shantal Stanford Self - patient is the insured [facility] [address] [place] [address] [phone] [id number] Shantal Stanford Self - patient is the insured [employer] [address] [place] [address] ACL Shantal Stanford Self - patient is [...] brain 08/20/23 Hospitalization History Reason Date(Month/Year) [facility] Pneumonia 07/11- - stage 4 cancer 08/17-09/05/2023 rhinovirus 03/2020 [facility]-pneumonia 03/2019 pneumonia 03/2015 COPD 2013 above
[2024-11-06 09:50] LABS: Hematocrit 32.1 % (37.0-47.0); Hemoglobin 10.4 g/dL (12.2-16.2); Immature Granulocytes % 1.7 %; Mean Corpuscular HGB Conc 32.4 g/dL (31.8-35.4); Mean Corpuscular Hemoglobin 30.5 pg (27.0-31.2); Mean Corpuscular Volume 94.1 fl (81-99); Nucleated Red Blood Cells % 0 %; Platelet Count 161 K/mm3 (142-424); Red Blood Count 3.41 M/mm3 (4.20-5.40); Red Cell Distribution Width-SD 53.7 fL; White Blood Count 10.2 K/mm3 (4.8-10.8)
[2024-11-06 10:05] LABS: Chloride 96 mmol/L (98-107)
[2024-11-06 10:06] LABS: Albumin Level 3.6 g/dl (3.5-5.0); Potassium 4.4 mmoL/L (3.5-5.1); Sodium 130 mmol/L (136-145)
[2024-11-06 10:08] LABS: Blood Urea Nitrogen 26 mg/dl (7-17); Creatinine,Serum 0.60 mg/dl (0.52-1.04); Estimated Glomerular Filt Rate 100 ml/min (>60); GFR (African American) 121 ML/MIN (>60)
[2024-11-06 10:09] LABS: Alanine Aminotransferase 64 U/L (12-78); Albumin/Globulin Ratio 1.3 (1.1-1.8); Alkaline Phosphatase 58 U/L (38-126); Anion Gap 4.4 mEq/L (5-15); Aspartate Amino Transferase 32 U/L (14-36); Bilirubin,Total 0.3 mg/dl (0.2-1.3); Calcium 8.2 mg/dl (8.4-10.2); Carbon Dioxide 34 mmol/L (22.0-30.0); Globulin 2.8 g/dL (1.3-3.2); Glucose 90 mg/dl (74-100); Total Protein,Serum 6.4 g/dl (6.3-8.2)
== END 2024-11-06 09:40 | disposition home or self-care (01) ==
LOC: INF 09:32
PROVIDERS: PCP Internal Medicine Adolescent Medicine; Visit Provider Internal Medicine Medical Oncology
DX: C34.90 Malignant neoplasm of unspecified part of unspecified bronchus or lung (principal)
CPT/HCPCS: 36415; 80053; 85025

== ENCOUNTER 2024-11-11 10:53 | Outpatient (CLI) | payer MEDICARE, BC, SELFPAY ==
[2024-11-11] MEDS: DEXAMETHASONE 4MG TABLET 12 MG (11:04)
[2024-11-11 11:40] VITALS: BP 141/62; PULSE 100; RESP 18; TEMP 36.6; O2SAT 97
[2024-11-11] MEDS: TOPOTECAN HCL IV (11:40)
[2024-11-11] MEDS: SODIUM CHLORIDE 0.9% IV (11:40)
[2024-11-11 11:55] VITALS: BP 132/61; PULSE 102
[2024-11-11 12:15] VITALS: BP 121/65; PULSE 101
[2024-11-11] MEDS: SODIUM CHLORIDE 0.9% 10ML FLUSH SYRINGE 10 ML IV (12:31)
== END 2024-11-11 12:25 | disposition home or self-care (01) ==
LOC: INF 10:54
PROVIDERS: PCP Internal Medicine Adolescent Medicine; Visit Provider Internal Medicine Medical Oncology
DX: C34.90 Malignant neoplasm of unspecified part of unspecified bronchus or lung (principal); Z51.11 Encounter for antineoplastic chemotherapy
CPT/HCPCS: 96413; J8540; J9351

== ENCOUNTER 2024-11-12 10:49 | Outpatient (CLI) | payer MEDICARE, BC, SELFPAY ==
--- OUTSIDE RECORDS SUMMARY | 2024-06-29 17:30 | XMS_ITS ---
Author Organization [facility] Address [address] [place] [address] Care Team Providers Care Inspector Machine Parts Name Role Phone Mango Albert Primary Care Provider [phone] Migration, Provider Unavailable Unavailable Allergies Allergen (clinical drug ingredient) Drug/Non Drug Allergy documented on EMR Reaction Allergy Type Onset Date Status levetiracetam Keppra Unknown Drug Allergy Act farideh Penicillin Unknown Drug Allergy Active REASON FOR VISIT [facility] Encounter Medications Medication SIG (Take, Route, Frequency, Duration) Notes Start Date End Date Status Vitamin D3 25 MCG 1 tab(s) orally once a day Active Vitamin B1 50 MG 1 TAB(S) ORALLY ONCE A DAY *Please review and pick correct strength-formulat ion from [facility] options. If intended option is not [...] MOUTH INHALED EVERY 2 HOURS DIRECTED . MANUFACTURING MAINTENANCE MECHANIC RECOMMENDS NOT TO EXCEED 12 INHALATIONS A [...] a day; Duration: 90 days Active Nystatin 484593 UNIT/ML 5 ML orally 4 times a day; Duration: 15 days swish and swallow 09/22/2023 Active Nystatin 589943 UNIT/GM 1 denise applied topically 2 times a day 09/14/2023 Active Protonix 40 MG TAKE 1 TABLET BY MOUTH DAILY orally once a day; Duration: 90 days Active Atorvastatin Calcium 80 MG 1 tab(s) orally once a day; Duration: 90 Active Euthyrox 200 MCG (0.2 MG) 1 TAB(S) ORALLY ONCE A DAY; Duration: 90 DAYS *Please review and pick correct strength-formulat ion from [employer] options. If intended option is not shown, discontinue and re-order from Quick Search* Active Synthroid 25 MCG 1 tab(s) orally once a day; Duration: 90 days Active Trelegy Ellipta 200 MCG-62.5 MCG-25 MCG/INH 1 PUFF(S) INHALED ONCE A DAY; Duration: 90 DAYS *Please review and pick correct strength-formulat ion from [employer] options. If intended option is not shown, [...] Active Encounters Encounter Location Date Provider Diagnosis [facility] [place] [address] [facility] [address] [place] [address] 06/29/2024 Provider Migration Depression with anxiety F41.8 [...] MOUTH INHALED EVERY 2 HOURS DIRECTED . MANUFACTURING MAINTENANCE MECHANIC RECOMMENDS NOT TO EXCEED 12 INHALATIONS A [...] once a day; Duration: 90 days Nystatin 700529 UNIT/ML 5 ML orally 4 times a [...] * Shantal LEON LDOB:1960 (64 yo F)Acc No.[id number]:06/29/2024 Patient: Shantal POTTER Provider: Cody Oneil :1960 A ge:63 Y S ex:Female Date:06/29/2024 Address:[address] [place], [place] [id number] Pcp:Mango Albert Subjective: * Chief Complaints: * 1 . [facility] En[facility]. * Medical History: * [...] *Please review and pick correct strength-formulation from [facility] options. If intended option is not [...] *Please review and pick correct strength-formulation from [employer] options. If intended option is not shown, discontinue and re-order from Quick Search*, Taking Famotidine 40 MG Tablet 1 tab(s) orally once a day (at bedtime) , Taking Trelegy Ellipta 200 MCG-62.5 MCG-25 MCG/INH POWDER 1 PUFF(S) INHALED ONCE A DAY , Notes to Pharmacist: *Please review and pick correct strength-formulation from [employer] options. If intended option is not shown, discontinue and re-order from Quick Search*, Taking Nystatin 738870 UNIT/GM Ointment 1 denise applied topically 2 [...] 3. S ore throat Start Nystatin Suspension, 560818 UNIT/ML, 5 ML, orally, 4 times a [...] MOUTH INHALED EVERY 2 HOURS DIRECTED . MANUFACTURING MAINTENANCE MECHANIC RECOMMENDS NOT TO EXCEED 12 INHALATIONS A [...] Electronic signature of Prov ider Migration on 11/12/2024 at 10:53 AM EDT Sign off status: Pending * Provider: Cody albright Migration Date: 0 06/29/2024 Generated for Printi ng/Corinna/Melitting on: 0 11/12/2024 10:53 AM EDT
--- OUTSIDE RECORDS SUMMARY | 2024-10-21 08:00 | XMS_ITS ---
Author Organization [facility] [place] Address [address] [place] [address] Care Team Providers Care Metal Control Coordinator Name Role Phone Mango Albert Primary Care Provider Aubrie Garza Unavailable [phone] Allergies Allergen (clinical drug ingredient) Drug/Non Drug Allergy documented on EMR Reaction Allergy Type Onset Date Status levetiracetam Keppra Unknown Drug Allergy Act farideh Penicillin Unknown Drug Allergy Active Results Component Value Reference Range Notes COMPREHENSIVE METABOLIC RADHA Welch (63776) Reviewed date:10/22/2024 04:06:15 PM Interpretation: Performing Lab:CB, [facility] Ghni3119 MitteRaritan Bay [facility] Center, Paynes[facility] HospitalPwboYX[address] Ludwin Sidhu Notes/Report: NON-FASTING; NON-FASTING; NON-FASTING; NON-FASTING; [...] Reviewed date:10/22/2024 04:06:15 PM Interpretation: Performing Lab:ALEKSANDR Covaritye1355 DiabetOmics, MM Local FoodsZpbkMC[address] Ludwin Sidhu Notes/Report: NON-FASTING; NON-FASTING; NON-FASTING; NON-FASTING; NON-FAST MAGNESIUM 1.6 1.5-2.5 mg/dL CBC (INCLUDES DIFF/PLT) (639 9) Reviewed date:10/22/2024 04:06:16 PM Interpretation: Performing Lab:ALEKSANDR CYBERHAWK Innovations-Pinevioe1355 DiabetOmics, MM Local FoodsVwzmVC[address] Ludwin Sidhu Notes/Report: NON-FASTING; NON-FASTING; NON-FASTING; NON-FASTING; [...] MPV 8.6 7.5-12.5 fL ABSOLUTE NEUTROPHILS 7746 4789-1334 cells/uL ABSOLUTE LYMPHOCYTES [phone] cells/uL ABSOLUTE MONOCYTES 508 200-950 cells/uL ABSOLUTE EOSINOPHILS 0 15-500 cells/uL ABSOLUTE BASOPHILS 9 0-200 cells/uL NEUTROPHILS 82.4 LYMPHOCYTES 12.1 MONOCYTES 5.4 EOSINOPHILS 0.0 BASOPHILS 0.1 HEMOGLOBIN A1c (496) Reviewed date:10/22/2024 04:06:16 PM Interpretation: Performing Lab:ALEKSANDR CYBERHAWK Innovations-Bag Borrow or Steal Itey7433 ADC TherapeuticsteGeisinger-Bloomsburg Hospital[address] Ludwin Sidhu Notes/Report: NON-FASTING; NON-FASTING; NON-FASTING; NON-FASTING; [...] diagnosis of diabetes in children. According to [place] Diabetes Association (ADA) guidelines, hemoglobin A1c <7.0% represents optimal control in non- diabetic patients. Different metrics may apply to specific patient populations. Standards of Medical Care in Diabetes(ADA). TSH W/REFLEX TO FT4 (39917) Reviewed date:10/22/2024 04:06:16 PM Interpretation: Performing Lab:ALEKSANDR CYBERHAWK Innovations-V[facility] Xdkt7297 InvariumRaritan Bay Medical Center, [facility] Hospital of MinneapolisHovdWG[address] Ludwin Sidhu Notes/Report: NON-FASTING; NON-FASTING; NON-FASTING; NON-FASTING; [...] review and pick correct strength-formulati on from Exabeamspan options. If intended option is not shown, [...] 10/21/2024 Encounters Encounter Location Date Provider Diagnosis [address] [address] 10/21/2024 Aubrie McNees Small cell lung canc [...] Next Appt Details Follow Up: 3 Months,prn, [place] son: Progress Notes * Shantal LEON LDOB:1960 (64 yo F)Acc No.[id number]:10/21/2024 Progress Notes Patient: Shantal POTTER Provider: Kevon Garza APRN :1960 A ge:64 Y S ex:Female Date:10/21/2024 Address:[address] [place] [address] [address], [place] Pcp:Mango Albert Subjective: * Chief Complaints: [...] a molly , COPD 2012, pneumonia 03/2015, [facility]-pneumonia 03/2019, rhinovirus 03/2020, - stage 4 cancer 08/17-09/05/2023, [facility] Pneumonia 07/11-. * Family History: F ather: [...] *Please review and pick correct strength-formulation from BitX options. If intended option is not shown, [...] - % * A BSOLUTE NEUTROPHILS 7746 8521-1664 - cells/uL * L YMPHOCYTES 12.1 - % * A BSOLUTE LYMPHOCYTES [phone] - cells/uL * M ONOCYTES 5.4 - [...] PM EDT > labs look good Elian [facility] 10/22/2024 04:06:08 PM EDT > pt [...] 12:51:24 PM EDT > labs look good [facility] 10/22/2024 04:06:08 PM EDT > pt notifiedThis lab was reviewed by Evaristo Plummer on 10/22/2024 at 16:06 PM EDT Notes: Will check A1c with upcoming oncology labs??5.?Hyponatremia?LAB: COMPREHENSIVE METABOLIC PANEL (02387)* Value Reference Range G LUCOSE 178 H [...] to labs??7.?Acquired hypothyroidism?LAB: TSH W/REFLEX TO FT4 (69067)* Value Reference Range T SH W/REFLEX TO [...] 0 10/21/2024 Generated for Rasheed park/Corinna/Pedrosmitting on: 0 11/12/2024 10:53 AM EDT History and Physical Notes * [...]
--- OUTSIDE RECORDS SUMMARY | 2024-11-12 10:54 | XMS_ITS | Patient Health Record ---
Author Organization [facility] Address [address] [facility] [address] [place] [address] Care Team Providers Care Director Of Athletics Name Role Phone Mango Albert Primary Care Provider Aubrie Garza Unavailable [phone] Migration, Provider Unavailable Unavailable Allergies Allergen (clinical drug ingredient) Drug/Non Drug Allergy documented on EMR Reaction Allergy Type Onset Date Status levetiracetam Keppra Unknown Drug Allergy Act farideh Penicillin Unknown Drug Allergy Active Results Component Value Reference Range Notes COMPREHENSIVE METABOLIC RADHA Welch ([id number]) Reviewed date:10/22/2024 04:06:15 PM Interpretation: Performing Lab:CB, [facility] [id number], [facility] HospitalXjblXI[address] Ludwin Sidhu Notes/Report: NON-FASTING; NON-FASTING; NON-FASTING; NON-FASTING; [...] Reviewed date:10/22/2024 04:06:15 PM Interpretation: Performing Lab:ALEKSANDR [employer]e[address] [employer], DOMAIN TherapeuticsKsqdNV[address] Ludwin Sidhu Notes/Report: NON-FASTING; NON-FASTING; NON-FASTING; NON-FASTING; NON-FAST MAGNESIUM 1.6 1.5-2.5 mg/dL CBC (INCLUDES DIFF/PLT) (639 9) Reviewed date:10/22/2024 04:06:16 PM Interpretation: Performing Lab:ALEKSANDR Youjia-CrowdyHousee[address] [employer], DOMAIN TherapeuticsHvejSG[address] Ludwin Sidhu Notes/Report: NON-FASTING; NON-FASTING; NON-FASTING; NON-FASTING; [...] MPV 8.6 7.5-12.5 fL ABSOLUTE NEUTROPHILS 7746 7490-0260 cells/uL ABSOLUTE LYMPHOCYTES 9427 960-2405 cells/uL ABSOLUTE MONOCYTES 508 200-950 cells/uL ABSOLUTE EOSINOPHILS 0 15-500 cells/uL ABSOLUTE BASOPHILS 9 0-200 cells/uL NEUTROPHILS 82.4 LYMPHOCYTES 12.1 MONOCYTES 5.4 EOSINOPHILS 0.0 BASOPHILS 0.1 HEMOGLOBIN A1c (496) Reviewed date:10/22/2024 04:06:16 PM Interpretation: Performing Lab:ALEKSANDR [facility] Iyze9165 OfferSavvyteSelect Specialty Hospital - Camp Hill[address] Ludwin Sidhu Notes/Report: NON-FASTING; NON-FASTING; NON-FASTING; NON-FASTING; [...] diagnosis of diabetes in children. According to [place] Diabetes Association (ADA) guidelines, hemoglobin A1c <7.0% represents optimal control in non- diabetic patients. Different metrics may apply to specific patient populations. Standards of Medical Care in Diabetes(ADA). TSH W/REFLEX TO FT4 (38527) Reviewed date:10/22/2024 04:06:16 PM Interpretation: Performing Lab:ALEKSANDR [facility] Cscm1929 OfferSavvyteThe Rehabilitation [facility], [facility] HealthcareNsrxVW[address] Ludwin Sidhu Notes/Report: NON-FASTING; NON-FASTING; NON-FASTING; NON-FASTING; [...] complication (E11.69) Active confirmed Problem Mixed hyperlipidemia (790819665) Mixed hyperlipidemia (E78.2) Active confirmed Problem Hypomagnesemia (691267792) Hypomagnesemia (E83.42) Active confirmed Problem Obstructive sleep apnea syndrome (disorder) (31878301) Obstructive sleep apnea (adult) (pediatric) (G47.33) Active confirmed Problem Essential hypertension (63851883) Essential (primary) hypertension (I10) Active confirmed Problem Mucopurulent chronic bronchitis (43289310) Mucopurulent chronic bronchitis (J41.1) Active confirmed Problem Hmogn-ku-btftezf hypoxemic respiratory failure (12169434641778981) Acute and chronic respiratory failure with hypoxia (J96.21) Active confirmed Problem Nicotine dependence (70590713) Personal history of nicotine dependence (Z87.891) Active confirmed Problem Mixed anxiety and depressive disorder (638261590) Depression with anxiety (F41.8) Active confirmed Problem Gastroesophageal reflux disease (861134802) GERD without esophagitis (K21.9) Active confirmed Problem Tobacco abuse (1500874739) Tobacco abuse (Z72.0) Active confirmed Problem Acute exacerbation o f chronic obstructive airways disease (114229516) COPD exacerbation (J44.1) Active confirmed Problem Obese class II (558796639343342) BMI 39.0-39.9,adult (Z68.39) Active confirmed Problem Gastroesophageal reflux disease with esophagitis (disorder) (469079424) GERD with esophagitis (K21.0) Active confirmed Problem COPD - Chronic obstructive pulmonary disease (45418262) Chronic obstructive pulmonary disease, unspecified COPD type (J44.9) Active confirmed Problem Acquired hypothyroidism (092047370) Acquired hypothyroidism (E03.9) Active confirmed Problem Morbid obesity (992886397) Morbid obesity due to excess calories (E66.01) Active confirmed Problem Insomnia disorder related to another mental disorder (14276757) Psychophysiological insomnia (F51.04) Active confirmed Problem Body mass index 40+ - severely obese (259521507) Body mass index (BMI) of 40.1-44.9 in adult (Z68.41) Active confirmed Problem Pulmonary nodule (944222177) Pulmonary nodule (R91.1) Active confirmed Problem Dysphagia (24657818) Dysphagia, unspecified type (R13.10) Active confirmed Problem Obstructive sleep apnea syndrome (70739190) DANNY on CPAP (G47.33) Active confirmed Problem Familial hypercholesterolemia (730060428) Familial hypercholesterolemia (E78.01) Active confirmed Problem Tobacco use (909265989) Tobacco use disorder (F17.200) Active confirmed Problem Acute exacerbation o f chronic obstructive airways disease (060412879) Acute exacerbation of chronic obstructive pulmonary disease (COPD) (J44.1) Active confirmed Problem Chronic obstructive lung disease co-occurrent with acute bronchitis (669008956865955) Acute bronchitis with chronic obstructive pulmonary disease (COPD) (J44.0) Active confirmed Problem Recurrent major depression (75240503) Major depressive disorder, recurrent episode with anxious distress (F33.9) Active confirmed Problem Small cell lung cancer (806729594) Small cell lung cancer (C34.90) Active confirmed Problem Metastasis to brain (78138902) Metastasis to brain (C79.31) Active confirmed Vital Signs Heart Rate 92 /min 10/21/2024 Temperature 98 degrees Fahrenheit 10/21/2024 Blood pressure diastolic 80 mm Hg 10/21/2024 Height 5 ft 5 in in 10/21/2024 Blood pressure systolic 145 mm Hg 10/21/2024 Weight 188 lbs 10/21/2024 BMI 31.28 kg/m2 10/21/2024 Encounters Encounter Location Date Provider Diagnosis [facility] [address] [place] [address] 06/29/2024 Provider Migration Depression with anxiety F41.8 ; Major depressive disorder, recurrent episode with anxious distress F33.9 and Sore throat J02.9 [facility] [address] [address] 07/22/2024 Aubrie McNees Small cell lung canc er C34.90 ; Encounter for Medicare annual wellness exam Z00.00 ; Metastasis to brain C79.31 ; Depression with anxiety F41.8 ; Type 2 diabetes mellitus with other specified complication E11.69 ; Hyponatremia E87.1 ; Hypomagnesemia E83.42 ; Acquired hypothyroidism E03.9 ; Mixed hyperlipidemia E78.2 ; Obstructive sleep apnea (adult) (pediatric) G47.33 and Essential (primary) hypertension I10 [facility] [place] [address] [address] 10/21/2024 Aubrie McNees Small cell lung canc er C34.90 ; Metastasis to brain C79.31 ; Depression with anxiety F41.8 ; Type 2 diabetes mellitus with other specified complication E11.69 ; Hyponatremia E87.1 ; Hypomagnesemia E83.42 ; Acquired hypothyroidism E03.9 ; Mixed hyperlipidemia E78.2 ; Obstructive sleep apnea (adult) (pediatric) G47.33 and Essential (primary) hypertension I10 [facility] [place] [address] [address] 12/06/2023 Aubrie McNees [facility] [place] [address] [address] 12/25/2023 Mango Albert Major depressive disorder, recurrent episode with anxious distress F33.9 [facility] [place] [address] [address] 12/25/2023 Aubrie McNees [facility] [address] [place] [address] 07/09/2024 Mango Besson [facility] [address] [place] [address] 07/22/2024 Aubrie McNees [facility] [address] [place] [address] 07/22/2024 Mango Besson [facility] [address] [place] [address] 10/21/2024 Aubrie McNees [facility] [address] [place] [address] 10/21/2024 Mangoshonda Albert [facility] [address] [place] [address] 10/21/2024 Mango Albert Assessments Encounter Date Diagnosis [...] - F41.8) Well controlled on current regimen. 07/22/2024 Metastasis to brain (ICD-10 - C79.31) See plan above 06/29/2024 Sore throat (ICD-10 - J02.9) 10/21/2024 Type 2 diabetes mellitus with other specified complication (ICD-10 - E11.69) Will check A1c with upcoming oncology labs 07/22/2024 Depression with anxiety (ICD-10 - F41.8) Patient is confused about her medications. She believes that she stopped her venalafaxine after discharge from [facility] due to confusion from d/c medication list. Advised her to check her meds against our updated list that we provided her today and call back and let me know. No changes made today. Has klonopin for PRN use 10/21/2024 Hyponatremia (ICD-10 - E87.1) Hyponatremia secondary [...] repeat with upcoming labs to confirm stability 10/21/2024 Mixed hyperlipidemia (ICD-10 - E78.2) On statin, tolerates well 07/22/2024 Acquired hypothyroidism (ICD-10 - E03.9) Recent TSH around 6 Synthroid increased, will recheck at FU 10/21/2024 Obstructive sleep apnea (adult) (pediatric) (ICD-10 [...] End Date [place] [place] [address] [id number] Shantal Stanford Self - patient is the insured [facility] [address] [place] [address] [id number] Shantal Stanford Self - patient is the insured [employer] [address] [place] [address] ACL Shantal Stanford Self - patient is [...] 08/20/23 Hospitalization History Reason Date(Month/Year) [facility] Pneumonia 07/11- - stage 4 cancer 08/17-09/05/2023 rhinovirus 03/2020 [facility]-pneumonia 03/2019 pneumonia 03/2015 COPD 2013 above
--- OUTSIDE RECORDS SUMMARY | 2024-11-12 10:54 | XMS_ITS | Clinical Summary ---
Author Organization [facility] Address [address] [place] [address] Care Team Providers Care Wool Hat Flanger Name Role Phone Mango Albert MD Primary Care Provider [phone] Allergies Active Allergy Reactions Criticality Noted Date [...] by mouth every night. 4 Active Multiple Vitamins-Client Experience Manager als (multivitamin with minerals) tablet Take 1 [...] place to sleep or slept in a detention (including now)? No 08/27/2023 Utilities Answer Date [...] - Risk 60-74 years 1-dose series) 2019 [id number]-95 Vaccine (2 - Erasto risk series) 12/24/2020 [...] this topic Medical Devices Implanted Type Area Coremaker Machine Device Identifier Shelf Expiration Date Model / Serial / Lot Graft Dura Repair 2x2 Synthecel - [id number] Implanted:Qty: 1 on 08/23/2023 by Nahum Peterson MD at [facility] Left: Brain Mediastream [facility]-[id number] 10/24/2025 CA.400.025 .01S / / [id number] Cover, Neuro Ketan Lp 17mm - [id number] Implanted:Qty: 1 on 08/23/2023 by Nahum Peterson MD at [facility]-[id number] / / Plate, 2 Hole Low Profile - [id number] Implanted:Qty: 1 on 08/23/2023 by Nahum Peterson MD at [facility]-[id number] [id number] / / Screw Ti Matrixneuro Selfdrill 4mm - [id number] Implanted:Qty: 1 on 08/23/2023 by Nahum Peterson MD at [id number] .[id number] / / Procedures Procedure Name Priority Date/Time Associated Diagnosis Comments HEPATITIS C ANTIBODY - ED W/REFLEX TO HCV QUANT PCR STAT 08/20/2023 6:36 AM EDT from Last 3 Months or Most Recently Relevant to Health Maintenance Results * Hepatitis C Antibody - ED (08/20/2023 6:36 AM EDT) Hepatitis C Antibody Negative Negative 08/20/2023 7:37 AM EDT [facility] Blood Venous blood specimen / Unknown Venipuncture / Unknown 08/20/2023 6:36 AM EDT 08/20/2023 6:58 AM EDT Neftaly Botello MD LAB BLOOD ORDERABLES Final Re sult [facility] [address] [place] [address] from Last 3 Months or Most Recently Relevant to Health Maintenance Insurance MEDICARE ANTHEM Advance Directives * Full Code (Latest Code Status on File) Date Activated Date Inactivated Comments 08/20/2023 1:42 PM 09/05/2023 7:24 PM Question Answer Comments Patient has decision-making capacity? Yes Care Teams Wool Hat Flanger Relationship Specialty Start Date End Date Mango Albert MD [address] [place] [address] PCP - General Internal Medicine 08/20/23
--- OUTSIDE RECORDS SUMMARY | 2024-11-12 10:54 | XMS_ITS ---
Author Organization Healthcare Address [address] [place] [address] Care Team Providers Care Talent Rep Name Role Phone Mango Albert MD Primary Care Provider [phone] Active Problems Problem Noted Date Diagnosed Date [...]
[2024-11-12 11:00] VITALS: BP 129/61; PULSE 82; RESP 20; TEMP 36.7; O2SAT 96
[2024-11-12] MEDS: DEXAMETHASONE 4MG TABLET 12 MG PO (11:00)
[2024-11-12] MEDS: SODIUM CHLORIDE 0.9% IV (11:28)
[2024-11-12] MEDS: TOPOTECAN HCL IV (11:28)
[2024-11-12 11:30] VITALS: BP 138/70; PULSE 85; RESP 20; O2SAT 97
[2024-11-12] MEDS: SODIUM CHLORIDE 0.9% 10ML FLUSH SYRINGE 10 ML IV (11:38)
[2024-11-12 12:20] VITALS: BP 142/72; PULSE 79; RESP 20; O2SAT 97
== END 2024-11-12 12:25 | disposition home or self-care (01) ==
LOC: INF 10:50
PROVIDERS: PCP Internal Medicine Adolescent Medicine; Visit Provider Internal Medicine Medical Oncology
DX: C34.91 Malignant neoplasm of unspecified part of right bronchus or lung (principal); Z51.11 Encounter for antineoplastic chemotherapy
CPT/HCPCS: 96413; J8540; J9351

== ENCOUNTER 2024-11-13 10:46 | Outpatient (CLI) | payer MEDICARE, BC, SELFPAY ==
--- OUTSIDE RECORDS SUMMARY | 2024-06-29 17:30 | XMS_ITS ---
Author Organization [facility] Address [address] [place] [address] Care Team Providers Care Veneer Stapler Name Role Phone Mango Albert Primary Care Provider [phone] Migration, Provider Unavailable Unavailable Allergies Allergen (clinical drug ingredient) Drug/Non Drug Allergy documented on EMR Reaction Allergy Type Onset Date Status levetiracetam Keppra Unknown Drug Allergy Act farideh Penicillin Unknown Drug Allergy Active [facility] FOR VISIT [facility] Encounter Medications Medication SIG (Take, Route, Frequency, Duration) Notes Start Date End Date Status Vitamin D3 25 MCG 1 tab(s) orally once a day Active Vitamin B1 50 MG 1 TAB(S) ORALLY ONCE A DAY *Please review and pick correct strength-formulat ion from [facility] options. If intended option is [...] MOUTH INHALED EVERY 2 HOURS DIRECTED . DRY JANITOR RECOMMENDS NOT TO EXCEED 12 INHALATIONS A [...] a day; Duration: 90 days Active Nystatin 116436 UNIT/ML 5 ML orally 4 times a day; Duration: 15 days swish and swallow 09/22/2023 Active Nystatin 975856 UNIT/GM 1 denise applied topically 2 times a day 09/14/2023 Active Protonix 40 MG TAKE 1 TABLET BY MOUTH DAILY orally once a day; Duration: 90 days Active Atorvastatin Calcium 80 MG 1 tab(s) orally once a day; Duration: 90 Active Euthyrox 200 MCG (0.2 MG) 1 TAB(S) ORALLY ONCE A DAY; Duration: 90 DAYS *Please review and pick correct strength-formulat ion from [employer] options. If intended option is not shown, discontinue and re-order from Quick Search* Active Synthroid 25 MCG 1 tab(s) orally once a day; Duration: 90 days Active Trelegy Ellipta 200 MCG-62.5 MCG-25 MCG/INH 1 PUFF(S) INHALED ONCE A DAY; Duration: 90 DAYS *Please review and pick correct strength-formulat ion from [employer] options. If intended option is not shown, [...] Active Encounters Encounter Location Date Provider Diagnosis [facility] [place] [address] [facility] [address] [place] [address] 06/29/2024 Provider Migration Depression with anxiety F41.8 [...] MOUTH INHALED EVERY 2 HOURS DIRECTED . DRY JANITOR RECOMMENDS NOT TO EXCEED 12 INHALATIONS A [...] once a day; Duration: 90 days Nystatin 678955 UNIT/ML 5 ML orally 4 times a [...] * Shantal LEON LDOB:1960 (64 yo F)Acc No.[id number]:06/29/2024 Patient: Shantal POTTER Provider: Cody Oneil :1960 A ge:63 Y S ex:Female Date:06/29/2024 Address:[address] [place] [address] [place], [place] [id number] Pcp:Mango Albert Subjective: * Chief Complaints: * 1 . [facility]. * Medical History: * Medications: [...] *Please review and pick correct strength-formulation from [facility] options. If intended option is not shown, [...] *Please review and pick correct strength-formulation from [employer] options. If intended option is not shown, discontinue and re-order from Quick Search*, Taking Famotidine 40 MG Tablet 1 tab(s) orally once a day (at bedtime) , Taking Trelegy Ellipta 200 MCG-62.5 MCG-25 MCG/INH POWDER 1 PUFF(S) INHALED ONCE A DAY , Notes to Pharmacist: *Please review and pick correct strength-formulation from [employer] options. If intended option is not shown, discontinue and re-order from Quick Search*, Taking Nystatin 353893 UNIT/GM Ointment 1 denise applied topically 2 [...] 3. S ore throat Start Nystatin Suspension, 079608 UNIT/ML, 5 ML, orally, 4 times a [...] MOUTH INHALED EVERY 2 HOURS DIRECTED . DRY JANITOR RECOMMENDS NOT TO EXCEED 12 INHALATIONS A [...] Electronic signature of Prov ider Migration on 11/13/2024 at 10:55 AM EDT Sign off status: Pending * Provider: Cody albright Migration Date: 0 06/29/2024 Generated for Printi ng/Corinna/Melitting on: 0 11/13/2024 10:55 AM EDT
--- OUTSIDE RECORDS SUMMARY | 2024-10-21 08:00 | XMS_ITS ---
Author Organization [facility] [place] Address [address] [place] [address] Care Team Providers Care Offensive Coordinator Name Role Phone Mango Albert Primary Care Provider Aubrie Garza Unavailable [phone] Allergies Allergen (clinical drug ingredient) Drug/Non Drug Allergy documented on EMR Reaction Allergy Type Onset Date Status levetiracetam Keppra Unknown Drug Allergy Act farideh Penicillin Unknown Drug Allergy Active Results Component Value Reference Range Notes COMPREHENSIVE METABOLIC RADHA Welch (20501) Reviewed date:10/22/2024 04:06:15 PM Interpretation: Performing Lab:[facility], [facility] Mgqc1714 [facility], [facility] Ludwin Sidhu Notes/Report: NON-FASTING; NON-FASTING; NON-FASTING; NON-FASTING; NON-FAST GLUCOSE 178 65-99 mg/dL Fasting reference interval For someone without known diabetes, a glucose value >125 mg/dL indicates that they may have diabetes and this should be confirmed with a follow-up test. UREA NITROGEN (BUN) 18 7-25 mg/dL CREATININE 0.79 0.50-1.05 mg/dL EGFR 83 > OR = 60 mL/min/1.73m2 BUN/CREATININE RATIO SEE NOTE: 6-22 (calc) Not Reported: BUN and Creatinine are within reference range. SODIUM 131 135-146 mmol/L POTASSIUM 3.7 3.5-5.3 mmol/L CHLORIDE 92 98-110 mmol/L CARBON DIOXIDE 28 20-32 mmol/L CALCIUM 9.0 8.6-10.4 mg/dL PROTEIN, TOTAL 7.8 6.1-8.1 g/dL ALBUMIN 3.9 3.6-5.1 g/dL GLOBULIN 3.9 1.9-3.7 g/dL (calc) ALBUMIN/GLOBULIN RATIO 1.0 1.0-2.5 (calc) BILIRUBIN, TOTAL 0.3 0.2-1.2 mg/dL ALKALINE PHOSPHATASE 76 37-153 U/L AST 15 10-35 U/L ALT 13 6-29 U/L MAGNESIUM (622) Reviewed date:10/22/2024 04:06:15 PM Interpretation: Performing Lab:[id number] [employer], [place] LeLcheVU[address] Ludwin Sidhu Notes/Report: NON-FASTING; NON-FASTING; NON-FASTING; NON-FASTING; NON-FAST MAGNESIUM 1.6 1.5-2.5 mg/dL CBC (INCLUDES DIFF/PLT) (639 9) Reviewed date:10/22/2024 04:06:16 PM Interpretation: Performing Lab:[facility] [employer], [place] LeQtdbBL[address] Ludwin Sidhu Notes/Report: NON-FASTING; NON-FASTING; NON-FASTING; NON-FASTING; NON-FAST WHITE BLOOD CELL COUNT 9.4 3.8-10.8 Thousand/ uL RED BLOOD CELL COUNT 3.58 3.80-5.10 Million/uL HEMOGLOBIN 10.5 11.7-15.5 g/dL HEMATOCRIT 34.6 35.0-45.0 % MCV 96.6 80.0-100.0 fL MCH 29.3 27.0-33.0 pg MCHC 30.3 32.0-36.0 g/dL For adults, a slight decrease in the calculated MCHC value (in the range of 30 to 32 g/dL) is most likely not clinically significant; however, it should be interpreted with caution in correlation with other red cell parameters and the patient's clinical condition. RDW 13.3 11.0-15.0 % PLATELET COUNT 279 140-400 Thousand/uL MPV 8.6 7.5-12.5 fL ABSOLUTE NEUTROPHILS [phone] cells/uL ABSOLUTE LYMPHOCYTES 2884 415-1579 cells/uL ABSOLUTE MONOCYTES 508 200-950 cells/uL ABSOLUTE EOSINOPHILS 0 15-500 cells/uL ABSOLUTE BASOPHILS 9 0-200 cells/uL NEUTROPHILS 82.4 LYMPHOCYTES 12.1 MONOCYTES 5.4 EOSINOPHILS 0.0 BASOPHILS 0.1 HEMOGLOBIN A1c (496) Reviewed date:10/22/2024 04:06:16 PM Interpretation: Performing Lab:[facility] [id number] [facility] [place] Ludwin Sidhu Notes/Report: NON-FASTING; NON-FASTING; NON-FASTING; NON-FASTING; NON-FAST HEMOGLOBIN A1c 5.1 <5.7 % For the purpose of screening for the presence of diabetes: <5.7% Consistent with the absence of diabetes 5.7-6.4% Consistent with increased risk for diabetes (prediabetes) > or =6.5% Consistent with diabetes This assay result is consistent with a decreased risk of diabetes. Currently, no consensus exists regarding use of hemoglobin A1c for diagnosis of diabetes in children. According to [place] Diabetes Association (ADA) guidelines, hemoglobin A1c <7.0% represents optimal control in non- diabetic patients. Different metrics may apply to specific patient populations. Standards of Medical Care in Diabetes(ADA). TSH W/REFLEX TO FT4 (86700) Reviewed date:10/22/2024 04:06:16 PM Interpretation: Performing Lab:[facility] [id number] [facility], [facility]XE[address] Ludwin Sidhu Notes/Report: NON-FASTING; NON-FASTING; NON-FASTING; NON-FASTING; NON-FAST TSH W/REFLEX TO FT4 3.99 0.40-4.50 mIU/L REASON FOR VISIT med ck, labs Medications Medication SIG (Take, Route, Frequency, Duration) Notes Start Date End Date Status clonazePAM 0.5 MG 1 tab(s) orally 2 times a day; Duration: 90 days 12/25/2023 Active Atorvastatin Calcium 80 MG 1 tab(s) orally once a day; Duration: 90 Active Euthyrox 125 MCG 1 TAB(S) ORALLY ONCE A DAY; Duration: 90 days *Please review and pick correct strength-formulati on from Kerlinkspan options. If intended option is not shown, discontinue and re-order from Quick Search* Active Ipratropium-Albuterol 0.5-2.5 (3) MG/3ML 3 mL by nebulizer 4 times a day; Duration: 90 days Active busPIRone HCl 10 MG 1 tab(s) orally 3 times a day; Duration: 90 days Active Potassium 99 MG 1 tablet Orally Once a day Active dexAMETHasone 4 MG 1 tablet Orally 3 times a day Active Acyclovir 400 MG 1 tablet Orally daily Active oxyCODONE HCl 5 MG 1 tab(s) orally every 6 hours prn; Duration: 30 days Metastatic lung cancer pain 07/22/2024 Active Atezolizumab 840 MG/14ML as directed Intravenous Active Albuterol Sulfate HFA 108 (90 Base) MCG/ACT 1 puff as needed Inhalation every 4 hrs; Duration: 30 days Active Lomotil 2.5-0.025 MG 1 tablet as needed Orally Four times a day; Duration: 30 days As needed 10/21/2024 Active Trelegy Ellipta 200-62.5-25 MCG/ACT USE 1 INHALATION BY MOUTH ONCE DAILY; Duration: 90 Active Venlafaxine HCl ER 75 MG TAKE 1 CAPSULE BY MOUTH ONCE DAILY; Duration: 90 Active Montelukast Sodium 10 MG TAKE 1 TABLET BY MOUTH ONCE DAILY; Duration: 90 Active Pantoprazole Sodium 40 MG TAKE 1 TABLET BY MOUTH ONCE DAILY; Duration: 90 Active Social History Tobacco Use: Social History Observation Description Date Details (start date - stop date) Former Smoker NA - NA Smoking: Question Answer Notes Are you a: former smoker How long has it been since you last smoked? < 1 month Section Notes: Lives with a room mate. Vital Signs Temperature 98 degrees Fahrenheit 10/21/2024 Heart Rate 92 /min 10/21/2024 Blood pressure systolic 145 mm Hg 10/22/19 25 Blood pressure diastolic 80 mm Hg 025 Height 5 ft 5 in in 10/21/2024 Weight 188 lbs 10/21/2024 BMI 31.28 kg/m2 10/21/2024 Encounters Encounter Location Date Provider Diagnosis [address] [address] 10/21/2024 Aubrie McNees Small cell lung canc er C34.90 ; Metastasis to brain C79.31 ; Depression with anxiety F41.8 ; Type 2 diabetes mellitus with other specified complication E11.69 ; Hyponatremia E87.1 ; Hypomagnesemia E83.42 ; Acquired hypothyroidism E03.9 ; Mixed hyperlipidemia E78.2 ; Obstructive sleep apnea (adult) (pediatric) G47.33 and Essential (primary) hypertension I10 Assessments Encounter Date Diagnosis (ICD Code) Assessment Notes Treatment Notes Treatment Clinical Notes Section Notes 10/21/2024 Small cell lung cancer (ICD-10 - C34.90) Oncology note reviewed Overall has tolerated treatments fairly well Add lomotil prn diarrhea. Keep FU with oncology Oxycodone PRN CSA UTD. rayna report reviewed and is appropriate - discussed ongoing use of controlled medication and safety associated with these medications 10/21/2024 Metastasis to brain (ICD-10 - C79.31) See plan above 10/21/2024 Depression with anxiety (ICD-10 - F41.8) Well controlled on current regimen. 10/21/2024 Type 2 diabetes mellitus with other specified complication (ICD-10 - E11.69) Will check A1c with upcoming oncology labs 10/21/2024 Hyponatremia (ICD-10 - E87.1) Hyponatremia secondary to lung cancer On sodium replacement at home Repeat CMP today 10/21/2024 Hypomagnesemia (ICD-10 - E83.42) Magnesium level added to labs 10/21/2024 Acquired hypothyroidism (ICD-10 - E03.9) On synthroid, repeat TSH today 10/21/2024 Mixed hyperlipidemia (ICD-10 - E78.2) On statin, tolerates well 10/21/2024 Obstructive sleep apnea (adult) (pediatric) (ICD-10 - G47.33) Tolerates CPAP with improvement of daytime somnolence 10/21/2024 Essential (primary) hypertension (ICD-10 - I10) BLood pressure near goal. Will cont to monitor Plan Of Treatment Medication Medication Name Sig Start Date Stop Date Notes Lomotil 2.5-0.025 MG 1 tablet as needed Orally Four times a day; Duration: 30 days 10/21/2024 Treatment Notes Assessment Notes Small cell lung cancer Oncology note reviewed Overall has tolerated treatments fairly well Add lomotil prn diarrhea. Keep FU with oncology Oxycodone PRN CSA CAROLANN. rayna report reviewed and is appropriate - discussed ongoing use of controlled medication and safety associated with these medications Metastasis to brain See plan above Depression with anxiety Well controlled on current regimen. Type 2 diabetes mellitus wit h other specified complication Will check A1c with upcoming oncology labs Hyponatremia Hyponatremia secondary to lung cancer On sodium replacement at home Repeat CMP today Hypomagnesemia Magnesium level adde d to labs Acquired hypothyroidism On synthroid, re peat TSH today Mixed hyperlipidemia On statin, tolerate s well Obstructive sleep apnea (adult) (pediatr ic) Tolerates CPAP with improvement of daytime somnolence Essential (primary) hypertension BLood p ressure near goal. Will cont to monitor Next Appt Details Follow Up: 3 Months,prn, Spivey son: Progress Notes * Shantal LEON LDOB:1960 (64 yo F)Acc No.[id number]:10/21/2024 Progress Notes Patient: Shantal POTTER Provider: Kevon Garza APRN :1960 A ge:64 Y S ex:Female Date:10/21/2024 Address:[address] [place] [address] [address], [place] Pcp:Mango Albert Subjective: * Chief Complaints: * 1 . Med ck. 2. Labs. 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 Denies hemoptysis. Patient is on 3.5L o2 via nasal cannula which she has been on for years. She no longer smokes but is now vaping. On Trelegy for COPD maintenance with albuterol PRN. Follows with Dr. Painter for metastatic lung cancer. S/p chemo and radiation. New brain lesion, dexamethasone recently added. Plans to restart radiation and chemo. C/o right sided chest pain, neck pain and headaches for which she uses oxycodone prn. Would like this refilled today. Diarrhea with chemo in the past, uncontrollable at times. GERD is well controlled. Mood is stable. Depression/anxiety well controlled. Uses Klonopin rarely. Diabetes-not checking FSBS. Weight is down around 100lbs from time of diagnosis. Appetite is stable. Hypothyroidism- on Synthroid, due for TSH check. GERD well controlled on PPI. HTN- no longer on b/p meds. Blood pressure near goal today. No acute concerns. * ROS: R ESPIRATORY: Shortness of breath y es. n o C hest congestion.?Cough y es. C ARDIOLOGY: no D izziness. n o C hest pain. n o P alpitations. n o L eg edema. C ONSTITUTIONAL: Loss of appetite y es. n o F ever. W eakness?yes. W eight loss y es. F atigue y es. D ERMATOLOGY: no R vincent. E NDOCRINOLOGY: Diabetes yes. G ASTROENTEROLOGY: no V omiting. D iarrhea y es. n o C onstipation. H EMATOLOGY/LYMPH: no S wollen glands. n o E asy bruising. ? M USCULOSKELETAL: no J oint stiffness. n o J oint pain. ? N EUROLOGY: no H eadache. n o M sofía loss. P SYCHOLOGY: Depression y es. H igh stress level y es. n o?Sleep disturbances. A nxiety y es. * Medical History: H ypothyroidism, COPD, Hyperlipidemia, GERD, Obesity, Depression, Tobacco abuse, DANNY, Herpes labialis, Stage 4 lung and brain cancer. * Surgical History: p artial thyroidectomy , D&C , tubal ligation , carpal tunnel partha hands x3 , right shoulder x1 , left shoulder x 2 , Colonoscopy - NML 2010, 2 lesion removed on brain 08/20/23. * Hospitalization/Major Diagno stic Procedure: a molly , COPD 2012, pneumonia 03/2015, [facility]-pneumonia 03/2019, rhinovirus 03/2020, - stage 4 cancer 08/17-09/05/2023, [facility] Pneumonia 07/11-. * Family History: F ather: , diagnosed with Cancer. M other: alive, diagnosed with Hypertension, Stroke. P aternal Grand Father: . P aternal Grand Mother: . M aternal Grand Father: . M aternal Grand Mother: . S iblings: alive, 1 brother -accidental, diagnosed with Diabetes. Yeimi servin: alive, 1 son . 3 brother(s) , 7 sister(s) . 1 daughter(s) . . * Social History: S moking A re you a: f ormer smoker, H ow long has it been since you last smoked??< 1 month. R ecreational drug use: no. Exercise: no. Home smoke detector use: yes. Caffeine: yes, frequency: 2 cups coffee daily. Living Will: No. Alcohol: no. Sexually active: no. Travel outside [place]: no. Occupation: disability. Lives with a room mate. * Medications: T aking dexAMETHasone 4 MG Tablet 1 tablet Orally 3 times a day , Taking Acyclovir 400 MG Tablet 1 tablet Orally daily , Taking oxyCODONE HCl 5 MG Tablet 1 tab(s) orally every 6 hours prn , Notes to Pharmacist: Metastatic lung cancer pain, Taking Atezolizumab 840 MG/14ML Solution as directed Intravenous , Taking Potassium 99 MG Tablet 1 tablet Orally Once a day , Taking Euthyrox 125 MCG Tablet 1 TAB(S) ORALLY ONCE A DAY , Notes to Pharmacist: *Please review and pick correct strength-formulation from Flipaste options. If intended option is not shown, discontinue and re-order from Quick Search*, Taking clonazePAM 0.5 MG Tablet 1 tab(s) orally 2 times a day , Taking Atorvastatin Calcium 80 MG Tablet 1 tab(s) orally once a day , Taking Ipratropium-Albuterol 0.5-2.5 (3) MG/3ML Solution 3 mL by nebulizer 4 times a day , Taking busPIRone HCl 10 MG Tablet 1 tab(s) orally 3 times a day , Taking Pantoprazole Sodium 40 MG Tablet Delayed Release TAKE 1 TABLET BY MOUTH ONCE DAILY , Taking Albuterol Sulfate HFA 108 (90 Base) MCG/ACT Aerosol Solution 1 puff as needed Inhalation every 4 hrs , Taking Montelukast Sodium 10 MG Tablet TAKE 1 TABLET BY MOUTH ONCE DAILY , Taking Trelegy Ellipta 200-62.5-25 MCG/ACT Aerosol Powder Breath Activated USE 1 INHALATION BY MOUTH ONCE DAILY , Taking Venlafaxine HCl ER 75 MG Capsule Extended Release 24 Hour TAKE 1 CAPSULE BY MOUTH ONCE DAILY , Medication List reviewed and reconciled with the patient * Allergies: P enicillin, Keppra. Objective: * Vitals: N urse: dw, Pain: 5, Temp: 98, RR: 20, HR: 92, BP: 145/80, Ht: 5 ft 5 in, Wt: 188, BMI:31.28. * Examination: G eneral Examination: General P leasant and Cooperative, NAD on 3 liters. Chest: n ormal shape and expansion. Heart: R RR, No m/r/g/h, Nl S1S2, No JVD, 2(+) symmetric pulses, no LE edema. Lungs: d iminished throughout, faint tight wheeze scattered throughout. Abdomen: S oft, NTND, BSNA, No organomegaly or peritoneal signs.. Neurologic Exam: A lert and oriented x 3, Moves All 4 Extremities Equally,. Skin: w ithout acute rashes. Peripheral pulses: n ormal (2+) bilaterally. neck s upple,, no thyromegaly,, no lymphadenopathy,. Psych N ormal Mood/Affect. Assessment: * Assessment: 1. S mall cell lung cancer - C34.90 (Primary) 2 . M etastasis to brain - C79.31 3 . D epression with anxiety - F41.8 4 . T ype 2 diabetes mellitus with other specified complication - E11.69 5 . H yponatremia - E87.1 6. H ypomagnesemia - E83.42 7 . A cquired hypothyroidism - E03.9 8 . M ixed hyperlipidemia - E78.2 9 . O bstructive sleep apnea (adult) (pediatric) - G47.33 1 0. E ssential (primary) hypertension - I10 Plan: * Treatment: Value Reference Range W MAGY BLOOD CELL COUNT 9.4 3.8-10.8 - Thousan d/uL * R ED BLOOD CELL COUNT 3.58 L 3.80-5.10 - Million/ uL * H EMOGLOBIN 10.5 L 11.7-15.5 - g/dL * H EMATOCRIT 34.6 L 35.0-45.0 - % * M CV 96.6 80.0-100.0 - fL * M CH 29.3 27.0-33.0 - pg * M CHC 30.3 L 32.0-36.0 - g/dL * R DW 13.3 11.0-15.0 - % * P LATELET COUNT 279 140-400 - Thousand/u L * N EUTROPHILS 82.4 - % * A BSOLUTE NEUTROPHILS 7746 3607-7951 - cells/uL * L YMPHOCYTES 12.1 - % * A BSOLUTE LYMPHOCYTES 3265 978-5333 - cells/uL * M ONOCYTES 5.4 - % * A BSOLUTE MONOCYTES 508 200-950 - cells/uL * E OSINOPHILS 0.0 - % * A BSOLUTE EOSINOPHILS 0 L 15-500 - cells/uL * B ASOPHILS 0.1 - % * A BSOLUTE BASOPHILS 9 0-200 - cells/uL * M PV 8.6 7.5-12.5 - fL * Aubrie Garza 10/23/19 12:51:24 PM EDT > labs look good [facility] 10/22/2024 04:06:08 PM EDT > pt notifiedThis lab was reviewed by Evaristo Plummer on 10/22/2024 at 16:06 PM EDT Notes: Oncology note reviewed Overall has tolerated treatments fairly well Add lomotil prn diarrhea. Keep FU with oncology Oxycodone PRN CSA UTD. rayna report reviewed and is appropriate - discussed ongoing use of controlled medicationand safety associated with these medications??2.?Metastasis to brain? Notes: See plan above??3.?Depression with anxiety? Notes: Well controlled on current regimen.??4.?Type 2 diabetes mellitus with other specified complication?LAB: HEMOGLOBIN A1c (496)* Value Reference Range H EMOGLOBIN A1c 5.1 <5.7 - % * Aubrie Garza 10/23/19 12:51:24 PM EDT > labs look good [facility] 10/22/2024 04:06:08 PM EDT > pt notifiedThis lab was reviewed by Evaristo Plummer on 10/22/2024 at 16:06 PM EDT Notes: Will check A1c with upcoming oncology labs??5.?Hyponatremia?LAB: COMPREHENSIVE METABOLIC PANEL (18583)* Value Reference Range G LUCOSE 178 H 65-99 - mg/dL * U BRIE NITROGEN (BUN) 18 7-25 - mg/dL * C REATININE 0.79 0.50-1.05 - mg/dL * B UN/CREATININE RATIO SEE NOTE: 6-22 - (calc) * S ODIUM 131 L 135-146 - mmol/L * P OTASSIUM 3.7 3.5-5.3 - mmol/L * C HLORIDE 92 L 98-110 - mmol/L * C ARBON DIOXIDE 28 20-32 - mmol/L * C ALCIUM 9.0 8.6-10.4 - mg/dL * P ROTEIN, TOTAL 7.8 6.1-8.1 - g/dL * A LBUMIN 3.9 3.6-5.1 - g/dL * G LOBULIN 3.9 H 1.9-3.7 - g/dL (calc ) * A LBUMIN/GLOBULIN RATIO 1.0 1.0-2.5 - (calc) * B ILIRUBIN, TOTAL 0.3 0.2-1.2 - mg/dL * A LKALINE PHOSPHATASE 76 37-153 - U/L * A ST 15 10-35 - U/L * A LT 13 6-29 - U/L * E GFR 83 > OR = 60 - mL/min/1 .73m2 * Aubrie Garza 10/23/19 12:51:24 PM EDT > labs look good Evaristo Plummer 10/22/2024 04:06:08 PM EDT > pt notifiedThis lab was reviewed by Evaristo Plummer on 10/22/2024 at 16:06 PM EDT Notes: Hyponatremia secondary to lung cancer On sodium replacement at home Repeat CMP today??6.?Hypomagnesemia?LAB: MAGNESIUM (622)* Value Reference Range M AGNESIUM 1.6 1.5-2.5 - mg/dL * Aubrie Garza 10/23/19 12:51:24 PM EDT > labs look good Evaristo Plummer 10/22/2024 04:06:08 PM EDT > pt notifiedThis lab was reviewed by Evaristo Plummer on 10/22/2024 at 16:06 PM EDT Notes: Magnesium level added to labs??7.?Acquired hypothyroidism?LAB: TSH W/REFLEX TO FT4 (63144)* Value Reference Range T SH W/REFLEX TO FT4 3.99 0.40-4.50 - mIU/L * Aubrie Garza 10/23/19 12:51:24 PM EDT > labs look good Evaristo Plummer 10/22/2024 04:06:08 PM EDT > pt notifiedThis lab was reviewed by Evaristo Plummer on 10/22/2024 at 16:06 PM EDT Notes: On synthroid, repeat TSH today??8.?Mixed hyperlipidemia? Notes: On statin, tolerates well??9.?Obstructive sleep apnea (adult) (pediatric) ? Notes: Tolerates CPAP with improvement of daytime somnolence??10.?Essential (primary) hypertension? Notes: BLood pressure near goal. Will cont to monitor?? * Follow Up: 3 Months,prn * * Sign off status: Completed true * Provider: Kevon Garza APRN Date: 0 10/21/2024 Generated for Rasheed park/Corinna/Pedrosmitting on: 11/13/2024 10:55 AM EDT History and Physical Notes * HPI (History of Present Illness) Category Sub-Category Detail Notes Category Not es gen 64-year-old fem jama with stage IV lung cancer with metastasis to brain presents today for routine f/u on COPD, HTN, GERD, Anxiety, DANNY, Depression, and Type 2 diabetes, Today, reports SOA and cough are at baseline. Denies hemoptysis. Patient is on 3.5L o2 via nasal cannula which she has been on for years. She no longer smokes but is now vaping. On Trelegy for COPD maintenance with albuterol PRN. Follows with Dr. Painter for metastatic lung cancer. S/p chemo and radiation. New brain lesion, dexamethasone recently added. Plans to restart radiation and chemo. C/o right sided chest pain, neck pain and headaches for which she uses oxycodone prn. Would like this refilled today. Diarrhea with chemo in the past, uncontrollable at times. GERD is well controlled. Mood is stable. Depression/anxiety well controlled. Uses Klonopin rarely. Diabetes-not checking FSBS. Weight is down around 100lbs from time of diagnosis. Appetite is stable. Hypothyroidism- on Synthroid, due for TSH check. GERD well controlled on PPI. HTN- no longer on b/p meds. Blood pressure near goal today. No acute concerns Examination Category Sub-Category Detail Notes Category Not es General Examination HEENT: Heart: RRR, No m/r/g/h, Nl S1S2, No JVD, 2(+) symmetric pulses, no LE edema Lungs: diminished throughou t, faint tight wheeze scattered throughout Abdomen: Soft, NTND, BSNA, No organomegaly or peritoneal signs. Skin: without acute rashes Neurologic Exam: Alert and oriented x 3, Moves All 4 Extremities Equally, Peripheral pulses: normal (2+) bilatera lly Chest: normal shape and exp ansion neck supple,, no thyromeg judith,, no lymphadenopathy, General Pleasant and Coopera tive, NAD on 3 liters Psych Normal Mood/Affect
[2024-11-13] MEDS: DEXAMETHASONE 4MG TABLET 12 MG (10:52)
--- OUTSIDE RECORDS SUMMARY | 2024-11-13 10:56 | XMS_ITS | Clinical Summary ---
Author Organization [facility] Address [address] [place] [address] Care Team Providers Care Vulcanizing Machine Operator Name Role Phone Mango Albert MD Primary Care Provider [phone] Allergies Active Allergy Reactions Criticality Noted Date [...] by mouth every night. 4 Active Multiple Vitamins-Cap Coverer als (multivitamin with minerals) tablet Take 1 [...] place to sleep or slept in a assisted (including now)? No 08/27/2023 Utilities Answer Date [...] - Risk 60-74 years 1-dose series) 2019 [id number]-[id number]-08 Vaccine (2 - Erasto risk series) 12/24/2020 [...] this topic Medical Devices Implanted Type Area Art Director Device Identifier Shelf Expiration Date Model / Serial / Lot Graft Dura Repair 2x2 Synthecel - [id number] Implanted:Qty: 1 on 08/23/2023 by Nahum Peterson MD at [facility] Left: Brain TechTol Imaging [facility]-[id number] 10/24/2025 VT.400.025 .01S / / [id number] Cover, Neuro Ketan Lp 17mm - [id number] Implanted:Qty: 1 on 08/23/2023 by Nahum Peterson MD at [facility]-[id number] / / Plate, 2 Hole Low Profile - [id number] Implanted:Qty: 1 on 08/23/2023 by Nahum Peterson MD at [facility]-[id number] [id number] / / Screw Ti Matrixneuro Selfdrill 4mm - [id number] Implanted:Qty: 1 on 08/23/2023 by Nahum Peterson MD at [id number] [id number] .01 / / Procedures Procedure Name Priority Date/Time Associated Diagnosis Comments HEPATITIS C ANTIBODY - ED W/REFLEX TO HCV QUANT PCR STAT 08/20/2023 6:36 AM EDT from Last 3 Months or Most Recently Relevant to Health Maintenance Results * Hepatitis C Antibody - ED (08/20/2023 6:36 AM EDT) Hepatitis C Antibody Negative Negative 08/20/2023 7:37 AM EDT [facility] Blood Venous blood specimen / Unknown Venipuncture / Unknown 08/20/2023 6:36 AM EDT 08/20/2023 6:58 AM EDT Neftaly Botello MD LAB BLOOD ORDERABLES Final Re sult [facility] [address] [place] [address] from Last 3 Months or Most Recently Relevant to Health Maintenance Insurance MEDICARE ANTHEM Advance Directives * Full Code (Latest Code Status on File) Date Activated Date Inactivated Comments 08/20/2023 1:42 PM 09/05/2023 7:24 PM Question Answer Comments Patient has decision-making capacity? Yes Care Teams Vulcanizing Machine Operator Relationship Specialty Start Date End Date Mango Albert MD [address] [place] [address] PCP - General Internal Medicine 08/20/23
--- OUTSIDE RECORDS SUMMARY | 2024-11-13 10:56 | XMS_ITS | Patient Health Record ---
Author Organization [facility] Address [address] [facility] [address] [place] [address] Care Team Providers Care Field Map Technician Name Role Phone Mango Albert Primary Care Provider Aubrie Garza Unavailable [phone] Migration, Provider Unavailable Unavailable Allergies Allergen (clinical drug ingredient) Drug/Non Drug Allergy documented on EMR Reaction Allergy Type Onset Date Status levetiracetam Keppra Unknown Drug Allergy Act farideh Penicillin Unknown Drug Allergy Active Results Component Value Reference Range Notes COMPREHENSIVE METABOLIC RADHA Welch (36181) Reviewed date:10/22/2024 04:06:15 PM Interpretation: Performing Lab:[facility], [facility] [address], [facility] Hospital[facility]xljTG[address] Ludwin Sidhu Notes/Report: NON-FASTING; NON-FASTING; NON-FASTING; NON-FASTING; [...] Reviewed date:10/22/2024 04:06:15 PM Interpretation: Performing Lab:[facility] Compare[facility]se[address] [employer], Moving Off CampusDqtzWT[address] Ludwin Sidhu Notes/Report: NON-FASTING; NON-FASTING; NON-FASTING; NON-FASTING; NON-FAST MAGNESIUM 1.6 1.5-2.5 mg/dL CBC (INCLUDES DIFF/PLT) (639 9) Reviewed date:10/22/2024 04:06:16 PM Interpretation: Performing Lab:[facility]Case[facility]rixe13[address] [employer], Moving Off CampusRaesXC[address] Ludwin Sidhu Notes/Report: NON-FASTING; NON-FASTING; NON-FASTING; NON-FASTING; [...] MPV 8.6 7.5-12.5 fL ABSOLUTE NEUTROPHILS 7746 1482-6220 cells/uL ABSOLUTE LYMPHOCYTES 6091 777-1304 cells/uL ABSOLUTE MONOCYTES 508 200-950 cells/uL ABSOLUTE EOSINOPHILS 0 15-500 cells/uL ABSOLUTE BASOPHILS 9 0-200 cells/uL NEUTROPHILS 82.4 LYMPHOCYTES 12.1 MONOCYTES 5.4 EOSINOPHILS 0.0 BASOPHILS 0.1 HEMOGLOBIN A1c (496) Reviewed date:10/22/2024 04:06:16 PM Interpretation: Performing Lab:[facility] Fuol[address] [facility] Hospital[address] Ludwin Sidhu Notes/Report: NON-FASTING; NON-FASTING; NON-FASTING; [...] diagnosis of diabetes in children. According to [place] Diabetes Association (ADA) guidelines, hemoglobin A1c <7.0% represents optimal control in non- diabetic patients. Different metrics may apply to specific patient populations. Standards of Medical Care in Diabetes(ADA). TSH W/REFLEX TO FT4 (15332) Reviewed date:10/22/2024 04:06:16 PM Interpretation: Performing Lab:[facility] Upfe[address] [facility] CenterGbupNE[address] Ludwin Sidhu Notes/Report: NON-FASTING; NON-FASTING; NON-FASTING; NON-FASTING; [...] Immunizations Vaccine Route Administration Date Status [facility] Prevnar PCV-13 (Pneumococcal conjugate 13) IM [...] complication (E11.69) Active confirmed Problem Mixed hyperlipidemia (089976450) Mixed hyperlipidemia (E78.2) Active confirmed Problem Hypomagnesemia (278567527) Hypomagnesemia (E83.42) Active confirmed Problem Obstructive sleep apnea syndrome (disorder) (29368780) Obstructive sleep apnea (adult) (pediatric) (G47.33) Active confirmed Problem Essential hypertension (43287803) Essential (primary) hypertension (I10) Active confirmed Problem Mucopurulent chronic bronchitis (71055339) Mucopurulent chronic bronchitis (J41.1) Active confirmed Problem Mkthq-vw-hdeglkt hypoxemic respiratory failure (97631488146950940) Acute and chronic respiratory failure with hypoxia (J96.21) Active confirmed Problem Nicotine dependence (72916002) Personal history of nicotine dependence (Z87.891) Active confirmed Problem Mixed anxiety and depressive disorder (242005726) Depression with anxiety (F41.8) Active confirmed Problem Gastroesophageal reflux disease (435995813) GERD without esophagitis (K21.9) Active confirmed Problem Tobacco abuse (5590244028) Tobacco abuse (Z72.0) Active confirmed Problem Acute exacerbation o f chronic obstructive airways disease (902743592) COPD exacerbation (J44.1) Active confirmed Problem Obese class II (937476763597593) BMI 39.0-39.9,adult (Z68.39) Active confirmed Problem Gastroesophageal reflux disease with esophagitis (disorder) (899890241) GERD with esophagitis (K21.0) Active confirmed Problem COPD - Chronic obstructive pulmonary disease (43654582) Chronic obstructive pulmonary disease, unspecified COPD type (J44.9) Active confirmed Problem Acquired hypothyroidism (639288687) Acquired hypothyroidism (E03.9) Active confirmed Problem Morbid obesity (345237524) Morbid obesity due to excess calories (E66.01) Active confirmed Problem Insomnia disorder related to another mental disorder (05029346) Psychophysiological insomnia (F51.04) Active confirmed Problem Body mass index 40+ - severely obese (413358686) Body mass index (BMI) of 40.1-44.9 in adult (Z68.41) Active confirmed Problem Pulmonary nodule (198340437) Pulmonary nodule (R91.1) Active confirmed Problem Dysphagia (23820514) Dysphagia, unspecified type (R13.10) Active confirmed Problem Obstructive sleep apnea syndrome (85754812) DANNY on CPAP (G47.33) Active confirmed Problem Familial hypercholesterolemia (864095898) Familial hypercholesterolemia (E78.01) Active confirmed Problem Tobacco use (921661841) Tobacco use disorder (F17.200) Active confirmed Problem Acute exacerbation o f chronic obstructive airways disease (479434569) Acute exacerbation of chronic obstructive pulmonary disease (COPD) (J44.1) Active confirmed Problem Chronic obstructive lung disease co-occurrent with acute bronchitis (881444862707215) Acute bronchitis with chronic obstructive pulmonary disease (COPD) (J44.0) Active confirmed Problem Recurrent major depression (81698654) Major depressive disorder, recurrent episode with anxious distress (F33.9) Active confirmed Problem Small cell lung cancer (355530048) Small cell lung cancer (C34.90) Active confirmed Problem Metastasis to brain (36418750) Metastasis to brain (C79.31) Active confirmed Vital Signs Heart Rate 92 /min 10/21/2024 Temperature 98 degrees Fahrenheit 10/21/2024 Blood pressure diastolic 80 mm Hg 10/21/2024 Height 5 ft 5 in in 10/21/2024 Blood pressure systolic 145 mm Hg 10/21/2024 Weight 188 lbs 10/21/2024 BMI 31.28 kg/m2 10/21/2024 Encounters Encounter Location Date Provider Diagnosis [facility] [address] [place] [address] 06/29/2024 Provider Migration Depression with anxiety F41.8 ; Major depressive disorder, recurrent episode with anxious distress F33.9 and Sore throat J02.9 [facility] [address] [address] 07/22/2024 Aubrie McNees Small cell lung canc er C34.90 ; Encounter for Medicare annual wellness exam Z00.00 ; Metastasis to brain C79.31 ; Depression with anxiety F41.8 ; Type 2 diabetes mellitus with other specified complication E11.69 ; Hyponatremia E87.1 ; Hypomagnesemia E83.42 ; Acquired hypothyroidism E03.9 ; Mixed hyperlipidemia E78.2 ; Obstructive sleep apnea (adult) (pediatric) G47.33 and Essential (primary) hypertension I10 [facility] [place] [address] [address] 10/21/2024 Aubrie McNees Small cell lung canc er C34.90 ; Metastasis to brain C79.31 ; Depression with anxiety F41.8 ; Type 2 diabetes mellitus with other specified complication E11.69 ; Hyponatremia E87.1 ; Hypomagnesemia E83.42 ; Acquired hypothyroidism E03.9 ; Mixed hyperlipidemia E78.2 ; Obstructive sleep apnea (adult) (pediatric) G47.33 and Essential (primary) hypertension I10 [facility] [place] [address] [address] 12/06/2023 Aubrie McNees [facility] [place] [address] [address] 12/25/2023 Mango Albert Major depressive disorder, recurrent episode with anxious distress F33.9 [facility] [place] [address] [address] 12/25/2023 Aubrie McNees [facility] [address] [place] [address] 07/09/2024 Mango Besson [facility] [address] [place] [address] 07/22/2024 Aubrie McNees [facility] [address] [place] [address] 07/22/2024 Mango Besson [facility] [address] [place] [address] 10/21/2024 Aubrie McNees [facility] [address] [place] [address] 10/21/2024 Mangoshonda Albert [facility] [address] [place] [address] 10/21/2024 Mango Albert Assessments Encounter Date Diagnosis [...] she stopped her venalafaxine after discharge from [facility] due to confusion from d/c medication [...] PANEL 06/19/2014 H-TSH 06/23/2014 C-CMP 09/05/2016 C-CMP 06/24/2013 C-CMP 05/07/2013 C-CMP 05/01/2020 C-LIPID PANEL 05/01/2020 C-LIPID PANEL 05/07/2013 C-LIPID PANEL 06/24/2013 C-LIPID PANEL 09/05/2016 C-TSH 09/05/2016 C-TSH 08/17/2015 C-TSH 06/24/2013 C-TSH 05/07/2013 C-HGBA1C 07/01/2013 C-HGBA1C 09/05/2016 M-Comprehensive Metabolic Panel 09/04/19 22 M-Comprehensive Metabolic Panel 11/23/19 19 M-Comprehensive Metabolic Panel 07/23/19 25 M-Hemoglobin A1C 07/22/2024 M-Hemoglobin A1C 11/22/2018 M-Hemoglobin A1C 09/03/2021 M-Magnesium 07/22/2024 M-Lipid Panel 11/22/2018 M-Lipid Panel 09/03/2021 M-Thyroid Stimulating Hormone 11/22/2018 M-Thyroid Stimulating Hormone 09/03/2021 Insurance Providers Payer Name Payer Address Payer Phone Subscriber Number Group Number Insured Name Patient Relationship to Insured Coverage Start Date Coverage End Date [place] [address] [place] [address] [id number] Shantal Stanford Self - patient is the insured [facility] [address] [place] [address] [id number] Shantal Stanford Self - patient is the insured [employer] [address] [place] [address] [phone] [id number] Shantal Stanford Self - patient is [...] on brain 08/20/23 Hospitalization History Reason Date(Month/Year) [facility] Pneumonia 07/11- - stage 4 cancer 08/17-09/05/2023 rhinovirus 03/2020 [facility]-pneumonia 03/2019 pneumonia 03/2015 COPD 2013 above
--- OUTSIDE RECORDS SUMMARY | 2024-11-13 10:56 | XMS_ITS ---
Author Organization Healthcare Address [address] [place] [address] Care Team Providers Care Last Inserter Name Role Phone Mango Albert MD Primary Care Provider [phone] Active Problems Problem Noted Date Diagnosed Date [...]
[2024-11-13 11:30] VITALS: BP 152/91; PULSE 84; RESP 19; O2SAT 99
[2024-11-13] MEDS: SODIUM CHLORIDE 0.9% IV (11:30)
[2024-11-13] MEDS: TOPOTECAN HCL IV (11:30)
[2024-11-13 12:15] VITALS: BP 146/85; PULSE 86; RESP 19; O2SAT 99
== END 2024-11-13 12:15 | disposition home or self-care (01) ==
LOC: INF 10:48
PROVIDERS: PCP Internal Medicine Adolescent Medicine; Visit Provider Internal Medicine Medical Oncology
DX: C34.90 Malignant neoplasm of unspecified part of unspecified bronchus or lung (principal); Z51.11 Encounter for antineoplastic chemotherapy
CPT/HCPCS: 96413; J8540; J9351

== ENCOUNTER 2024-11-14 11:02 | Outpatient (CLI) | payer MEDICARE, BC, SELFPAY ==
--- OUTSIDE RECORDS SUMMARY | 2024-06-29 17:30 | XMS_ITS ---
Author Organization [facility] Address [address] [place] [address] Care Team Providers Care Regional Wildlife Agent Name Role Phone Mango Albert Primary Care Provider Migration, Provider Unavailable Unavailable Allergies Allergen (clinical drug ingredient) Drug/Non Drug Allergy documented on EMR Reaction Allergy Type Onset Date Status levetiracetam Keppra Unknown Drug Allergy Act farideh Penicillin Unknown Drug Allergy Active REASON FOR VISIT [facility] Encounter Medications Medication SIG (Take, Route, Frequency, Duration) Notes Start Date End Date Status Vitamin D3 25 MCG 1 tab(s) orally once a day Active Vitamin B1 50 MG 1 TAB(S) ORALLY ONCE A DAY *Please review and pick correct strength-formulat ion from [facility] options. If intended option is not shown, [...] MOUTH INHALED EVERY 2 HOURS DIRECTED . RICE DRIER RECOMMENDS NOT TO EXCEED 12 INHALATIONS A [...] a day; Duration: 90 days Active Nystatin 036056 UNIT/ML 5 ML orally 4 times a day; Duration: 15 days swish and swallow 09/22/2023 Active Nystatin 172072 UNIT/GM 1 denise applied topically 2 times a day 09/14/2023 Active Protonix 40 MG TAKE 1 TABLET BY MOUTH DAILY orally once a day; Duration: 90 days Active Atorvastatin Calcium 80 MG 1 tab(s) orally once a day; Duration: 90 Active Euthyrox 200 MCG (0.2 MG) 1 TAB(S) ORALLY ONCE A DAY; Duration: 90 DAYS *Please review and pick correct strength-formulat ion from [employer] options. If intended option is not shown, discontinue and re-order from Quick Search* Active Synthroid 25 MCG 1 tab(s) orally once a day; Duration: 90 days Active Trelegy Ellipta 200 MCG-62.5 MCG-25 MCG/INH 1 PUFF(S) INHALED ONCE A DAY; Duration: 90 DAYS *Please review and pick correct strength-formulat ion from [employer] options. If intended option is not shown, [...] Active Encounters Encounter Location Date Provider Diagnosis [facility] [place] [address] [facility] [address] [place] [address] 06/29/2024 Provider Migration Depression with anxiety F41.8 [...] MOUTH INHALED EVERY 2 HOURS DIRECTED . RICE DRIER RECOMMENDS NOT TO EXCEED 12 INHALATIONS A [...] once a day; Duration: 90 days Nystatin 294510 UNIT/ML 5 ML orally 4 times a [...] * Shantal LEON LDOB:1960 (64 yo F)Acc No.[id number]:06/29/2024 Patient: Shantal POTTER Provider: Cody Oneil :1960 A ge:63 Y S ex:Female Date:06/29/2024 Address:[address] [place], [place] [phone] Pcp:Mango Albert Subjective: * Chief Complaints: * 1 . [facility] En[facility]. * Medical History: * [...] *Please review and pick correct strength-formulation from [facility] options. If intended option is not [...] *Please review and pick correct strength-formulation from [employer] options. If intended option is not shown, discontinue and re-order from Quick Search*, Taking Famotidine 40 MG Tablet 1 tab(s) orally once a day (at bedtime) , Taking Trelegy Ellipta 200 MCG-62.5 MCG-25 MCG/INH POWDER 1 PUFF(S) INHALED ONCE A DAY , Notes to Pharmacist: *Please review and pick correct strength-formulation from [employer] options. If intended option is not shown, discontinue and re-order from Quick Search*, Taking Nystatin 042890 UNIT/GM Ointment 1 denise applied topically 2 [...] 3. S ore throat Start Nystatin Suspension, 338280 UNIT/ML, 5 ML, orally, 4 times a [...] MOUTH INHALED EVERY 2 HOURS DIRECTED . RICE DRIER RECOMMENDS NOT TO EXCEED 12 INHALATIONS A [...] Electronic signature of Prov ider Migration on 11/14/2024 at 11:11 AM EDT Sign off status: Pending * Provider: Cody albright Migration Date: 0 06/29/2024 Generated for Printi ng/Corinna/Melitting on: 0 11/14/2024 11:11 AM EDT
--- OUTSIDE RECORDS SUMMARY | 2024-10-21 08:00 | XMS_ITS ---
Author Organization [facility] [place] Address [address] [place] [address] Care Team Providers Care Mica Paster Name Role Phone Mango Albert Primary Care Provider Aubrie Garza Unavailable [phone] Allergies Allergen (clinical drug ingredient) Drug/Non Drug Allergy documented on EMR Reaction Allergy Type Onset Date Status levetiracetam Keppra Unknown Drug Allergy Act farideh Penicillin Unknown Drug Allergy Active Results Component Value Reference Range Notes COMPREHENSIVE METABOLIC RADHA Welch (17387) Reviewed date:10/22/2024 04:06:15 PM Interpretation: Performing Lab:CB, [facility] Neug0751 MitteBristol-Myers Squ[facility], [facility] ClinicSjkxIV[address] Ludwin Sidhu Notes/Report: NON-FASTING; NON-FASTING; NON-FASTING; NON-FASTING; [...] Reviewed date:10/22/2024 04:06:15 PM Interpretation: Performing Lab:ALEKSANDR CipherCloude1355 [employer], [employer] OyUgxcOK[address] Ludwin Sidhu Notes/Report: NON-FASTING; NON-FASTING; NON-FASTING; NON-FASTING; NON-FAST MAGNESIUM 1.6 1.5-2.5 mg/dL CBC (INCLUDES DIFF/PLT) (639 9) Reviewed date:10/22/2024 04:06:16 PM Interpretation: Performing Lab:ALEKSANDR FX Bridge-Plasmonixe1355 [employer], [employer] OyRgfrHM[address] Ludwin Sidhu Notes/Report: NON-FASTING; NON-FASTING; NON-FASTING; NON-FASTING; [...] MPV 8.6 7.5-12.5 fL ABSOLUTE NEUTROPHILS 7746 4180-0039 cells/uL ABSOLUTE LYMPHOCYTES 3215 346-6665 cells/uL ABSOLUTE MONOCYTES 508 200-950 cells/uL ABSOLUTE EOSINOPHILS 0 15-500 cells/uL ABSOLUTE BASOPHILS 9 0-200 cells/uL NEUTROPHILS 82.4 LYMPHOCYTES 12.1 MONOCYTES 5.4 EOSINOPHILS 0.0 BASOPHILS 0.1 HEMOGLOBIN A1c (496) Reviewed date:10/22/2024 04:06:16 PM Interpretation: Performing Lab:ALEKSANDR FX Bridge-Novalys Rogn3446 GudvilleteJefferson Abington Hospital[address] Ludwin Sidhu Notes/Report: NON-FASTING; NON-FASTING; NON-FASTING; [...] diagnosis of diabetes in children. According to [place]alese Diabetes Association (ADA) guidelines, hemoglobin A1c <7.0% represents optimal control in non- diabetic patients. Different metrics may apply to specific patient populations. Standards of Medical Care in Diabetes(ADA). TSH W/REFLEX TO FT4 (64578) Reviewed date:10/22/2024 04:06:16 PM Interpretation: Performing Lab:ALEKSANDR [facility] Wgyr4368 FreespeeBristol-My[facility] Squ[facility], [facility] CenterVfpsNG[address] Ludwin Sidhu Notes/Report: NON-FASTING; NON-FASTING; NON-FASTING; NON-FASTING; [...] review and pick correct strength-formulati on from Screenzspan options. If intended option is not shown, [...] 10/21/2024 Encounters Encounter Location Date Provider Diagnosis [address] [address] 10/21/2024 Aubrie McNees Small cell lung canc [...] Next Appt Details Follow Up: 3 Months,prn, [place] son: Progress Notes * Shantal LEON LDOB:1960 (64 yo F)Acc No.[id number]:10/21/2024 Progress Notes Patient: Shantal POTTER Provider: Kevon Garza APRN :1960 A ge:64 Y S ex:Female Date:10/21/2024 Address:[address] [place] [address] [address], [place] Pcp:Mango Albert Subjective: * Chief Complaints: [...] a molly , COPD 2012, pneumonia 03/2015, [facility]-pneumonia 03/2019, rhinovirus 03/2020, - stage 4 cancer 08/17-09/05/2023, [facility] Pneumonia 07/11-. * Family History: [...] *Please review and pick correct strength-formulation from [employer] options. If intended option is not shown, [...] - % * A BSOLUTE NEUTROPHILS 7746 0151-1400 - cells/uL * L YMPHOCYTES 12.1 - % * A BSOLUTE LYMPHOCYTES 5284 267-1390 - cells/uL * M ONOCYTES 5.4 - [...] PM EDT > labs look good Elian [facility] 10/22/2024 04:06:08 PM EDT > pt [...] 12:51:24 PM EDT > labs look good [facility] 10/22/2024 04:06:08 PM EDT > pt notifiedThis lab was reviewed by Evaristo Plummer on 10/22/2024 at 16:06 PM EDT Notes: Will check A1c with upcoming oncology labs??5.?Hyponatremia?LAB: COMPREHENSIVE METABOLIC PANEL (74315)* Value Reference Range G LUCOSE 178 H [...] to labs??7.?Acquired hypothyroidism?LAB: TSH W/REFLEX TO FT4 (62754)* Value Reference Range T SH W/REFLEX TO [...] 10/21/2024 Generated for Rasheed park/Corinna/Pedrosmitting on: 0 11/14/2024 11:10 AM EDT History and Physical Notes * [...]
--- OUTSIDE RECORDS SUMMARY | 2024-11-14 11:11 | XMS_ITS | Clinical Summary ---
Author Organization Healthcare Address [address] [place] [address] Care Team Providers Care Loss Prevention Supervisor Name Role Phone Mango Albert MD Primary Care Provider [phone] Allergies Active Allergy Reactions Criticality Noted Date [...] by mouth every night. 4 Active Multiple Vitamins-Program Facilitator als (multivitamin with minerals) tablet Take 1 [...] place to sleep or slept in a long-term (including now)? No 08/27/2023 Utilities Answer Date [...] - Risk 60-74 years 1-dose series) 2019 [id number]-[id number]-14 Vaccine (2 - Erasto risk series) 12/24/2020 [...] this topic Medical Devices Implanted Type Area Biometrics Experimentalist Device Identifier Shelf Expiration Date Model / Serial / Lot Graft Dura Repair 2x2 Synthecel - [id number] Implanted:Qty: 1 on 08/23/2023 by Nahum Peterson MD at [facility] Left: Brain [place] [employer] [facility]-[id number] 10/24/2025 TN.400.025 .01S / / [id number] Cover, Neuro Ketan Lp 17mm - [id number] Implanted:Qty: 1 on 08/23/2023 by Nahum Peterson MD at [facility]-[id number] [id number] / / Plate, 2 Hole Low Profile - [id number] Implanted:Qty: 1 on 08/23/2023 by Nahum Peterson MD at [facility]-[id number] 421.502 / / Screw Ti Matrixneuro Selfdrill 4mm - [id number] Implanted:Qty: 1 on 08/23/2023 by Nahum Peterson MD at [facility]960563 [id number] .01 / / Procedures Procedure Name Priority Date/Time Associated Diagnosis Comments HEPATITIS C ANTIBODY - ED W/REFLEX TO HCV QUANT PCR STAT 08/20/2023 6:36 AM EDT from Last 3 Months or Most Recently Relevant to Health Maintenance Results * Hepatitis C Antibody - ED (08/20/2023 6:36 AM EDT) Hepatitis C Antibody Negative Negative 08/20/2023 7:[address] [facility] Blood Venous blood specimen / Unknown Venipuncture / Unknown 08/20/2023 6:36 AM EDT 08/20/2023 6:58 AM EDT Neftaly Botello MD LAB BLOOD ORDERABLES Final Re sult [facility] [address] [place] [address] from Last 3 Months or Most Recently Relevant to Health Maintenance Insurance MEDICARE ANTHEM Advance Directives * Full Code (Latest Code Status on File) Date Activated Date Inactivated Comments 08/20/2023 1:42 PM 09/05/2023 7:24 PM Question Answer Comments Patient has decision-making capacity? Yes Care Teams Loss Prevention Supervisor Relationship Specialty Start Date End Date Mango Albert MD [address] [place] [address] PCP - General Internal Medicine 08/20/23
--- OUTSIDE RECORDS SUMMARY | 2024-11-14 11:11 | XMS_ITS ---
Author Organization Healthcare Address [address] [place] [address] Care Team Providers Care Economic Specialist Name Role Phone Mango Albert MD Primary Care Provider [phone] Active Problems Problem Noted Date Diagnosed Date [...]
--- OUTSIDE RECORDS SUMMARY | 2024-11-14 11:11 | XMS_ITS | Patient Health Record ---
Author Organization [facility] [place] Address [address] [facility] [address] [place] [address] Care Team Providers Care Turf Farmer Name Role Phone Mango Albert Primary Care Provider Aubrie Garza Unavailable [phone] Migration, Provider Unavailable Unavailable Allergies Allergen (clinical drug ingredient) Drug/Non Drug Allergy documented on EMR Reaction Allergy Type Onset Date Status levetiracetam Keppra Unknown Drug Allergy Act farideh Penicillin Unknown Drug Allergy Active Results Component Value Reference Range Notes TSH W/REFLEX TO FT4 (78376) Reviewed date:10/22/2024 04:06:16 PM Interpretation: Performing Lab:ALEKSANDR Relaborate-KS12 Mzjq1628 [facility] Notegraphy, NetMinderKtmwIS[address] Ludwin Sidhu Notes/Report: NON-FASTING; NON-FASTING; NON-FASTING; NON-FASTING; NON-FAST TSH W/REFLEX TO FT4 3.99 0.40-4.50 mIU/L HEMOGLOBIN A1c (496) Reviewed date:10/22/2024 04:06:16 PM Interpretation: Performing Lab:ALEKSANDR [employer] D[address] Notegraphy, NetMinderNojpTS[address] Ludwin Sidhu Notes/Report: NON-FASTING; NON-FASTING; NON-FASTING; NON-FASTING; [...] diagnosis of diabetes in children. According to [place] Diabetes Association (ADA) guidelines, hemoglobin A1c <7.0% represents optimal control in non- diabetic patients. Different metrics may apply to specific patient populations. Standards of Medical Care in Diabetes(ADA). CBC (INCLUDES DIFF/PLT) (639 9) Reviewed date:10/22/2024 04:06:16 PM Interpretation: Performing Lab:ALEKSANDR Fix[employer] [facility]-KS12 [id number] [facility] [address], NetMinderIadcRG[address] Ludwin Sidhu Notes/Report: NON-FASTING; NON-FASTING; NON-FASTING; NON-FASTING; [...] MPV 8.6 7.5-12.5 fL ABSOLUTE NEUTROPHILS 7746 0765-5930 cells/uL ABSOLUTE LYMPHOCYTES 4150 225-7661 cells/uL ABSOLUTE MONOCYTES 508 200-950 cells/uL ABSOLUTE EOSINOPHILS 0 15-500 cells/uL ABSOLUTE BASOPHILS 9 0-200 cells/uL NEUTROPHILS 82.4 LYMPHOCYTES 12.1 MONOCYTES 5.4 EOSINOPHILS 0.0 BASOPHILS 0.1 MAGNESIUM (622) Reviewed date:10/22/2024 04:06:15 PM Interpretation: Performing Lab:ALEKSANDR, [facility]-KS12 [address], BioMaxKhkpBT[address] Ludwin Sidhu Notes/Report: NON-FASTING; NON-FASTING; NON-FASTING; NON-FASTING; NON-FAST MAGNESIUM 1.6 1.5-2.5 mg/dL COMPREHENSIVE METABOLIC PANE Rebekah (34584) Reviewed date:10/22/2024 04:06:15 PM Interpretation: Performing Lab:CB, [facility] [address], Solo BañuelosVxgsAC[address] Ludwin Sidhu Notes/Report: NON-FASTING; NON-FASTING; NON-FASTING; NON-FASTING; [...] 15 10-35 U/L ALT 13 6-29 U/L Reason For Referral No Information Medications Medication [...] Immunizations Vaccine Route Administration Date Status Comme [facility] Prevnar PCV-13 (Pneumococcal conjugate 13) IM Intramuscular [...] complication (E11.69) Active confirmed Problem Mixed hyperlipidemia (453548515) Mixed hyperlipidemia (E78.2) Active confirmed Problem Hypomagnesemia (096068868) Hypomagnesemia (E83.42) Active confirmed Problem Obstructive sleep apnea syndrome (disorder) (28751933) Obstructive sleep apnea (adult) (pediatric) (G47.33) Active confirmed Problem Essential hypertension (89103351) Essential (primary) hypertension (I10) Active confirmed Problem Mucopurulent chronic bronchitis (59267914) Mucopurulent chronic bronchitis (J41.1) Active confirmed Problem Sagvw-hw-tjyfvds hypoxemic respiratory failure (46738935461047491) Acute and chronic respiratory failure with hypoxia (J96.21) Active confirmed Problem Nicotine dependence (47646551) Personal history of nicotine dependence (Z87.891) Active confirmed Problem Mixed anxiety and depressive disorder (098390012) Depression with anxiety (F41.8) Active confirmed Problem Gastroesophageal reflux disease (488712719) GERD without esophagitis (K21.9) Active confirmed Problem Tobacco abuse (1020437122) Tobacco abuse (Z72.0) Active confirmed Problem Acute exacerbation o f chronic obstructive airways disease (736019939) COPD exacerbation (J44.1) Active confirmed Problem Obese class II (014762999044673) BMI 39.0-39.9,adult (Z68.39) Active confirmed Problem Gastroesophageal reflux disease with esophagitis (disorder) (122900447) GERD with esophagitis (K21.0) Active confirmed Problem COPD - Chronic obstructive pulmonary disease (35162080) Chronic obstructive pulmonary disease, unspecified COPD type (J44.9) Active confirmed Problem Acquired hypothyroidism (235334356) Acquired hypothyroidism (E03.9) Active confirmed Problem Morbid obesity (954647836) Morbid obesity due to excess calories (E66.01) Active confirmed Problem Insomnia disorder related to another mental disorder (81412583) Psychophysiological insomnia (F51.04) Active confirmed Problem Body mass index 40+ - severely obese (104296992) Body mass index (BMI) of 40.1-44.9 in adult (Z68.41) Active confirmed Problem Pulmonary nodule (783353637) Pulmonary nodule (R91.1) Active confirmed Problem Dysphagia (63789108) Dysphagia, unspecified type (R13.10) Active confirmed Problem Obstructive sleep apnea syndrome (08713494) DANNY on CPAP (G47.33) Active confirmed Problem Familial hypercholesterolemia (431830435) Familial hypercholesterolemia (E78.01) Active confirmed Problem Tobacco use (816476486) Tobacco use disorder (F17.200) Active confirmed Problem Acute exacerbation o f chronic obstructive airways disease (992175441) Acute exacerbation of chronic obstructive pulmonary disease (COPD) (J44.1) Active confirmed Problem Chronic obstructive lung disease co-occurrent with acute bronchitis (905933797673076) Acute bronchitis with chronic obstructive pulmonary disease (COPD) (J44.0) Active confirmed Problem Recurrent major depression (58319910) Major depressive disorder, recurrent episode with anxious distress (F33.9) Active confirmed Problem Small cell lung cancer (115617214) Small cell lung cancer (C34.90) Active confirmed Problem Metastasis to brain (33833799) Metastasis to brain (C79.31) Active confirmed Vital Signs Heart Rate 92 /min 10/21/2024 Temperature 98 degrees Fahrenheit 10/21/2024 Blood pressure diastolic 80 mm Hg 10/21/2024 Height 5 ft 5 in in 10/21/2024 Blood pressure systolic 145 mm Hg 10/21/2024 Weight 188 lbs 10/21/2024 BMI 31.28 kg/m2 10/21/2024 Encounters Encounter Location Date Provider Diagnosis [facility] [place] [address] [place] [address] 06/29/2024 Provider Migration Depression with anxiety F41.8 ; Major depressive disorder, recurrent episode with anxious distress F33.9 and Sore throat J02.9 [facility] [address] [address] 07/22/2024 Aubrie McNees Small cell lung canc er C34.90 ; Encounter for Medicare annual wellness exam Z00.00 ; Metastasis to brain C79.31 ; Depression with anxiety F41.8 ; Type 2 diabetes mellitus with other specified complication E11.69 ; Hyponatremia E87.1 ; Hypomagnesemia E83.42 ; Acquired hypothyroidism E03.9 ; Mixed hyperlipidemia E78.2 ; Obstructive sleep apnea (adult) (pediatric) G47.33 and Essential (primary) hypertension I10 [facility] [address] [address] 10/21/2024 Aubrie McNees Small cell lung canc er C34.90 ; Metastasis to brain C79.31 ; Depression with anxiety F41.8 ; Type 2 diabetes mellitus with other specified complication E11.69 ; Hyponatremia E87.1 ; Hypomagnesemia E83.42 ; Acquired hypothyroidism E03.9 ; Mixed hyperlipidemia E78.2 ; Obstructive sleep apnea (adult) (pediatric) G47.33 and Essential (primary) hypertension I10 [facility] [place] [address] [address] 12/06/2023 Aubrie McNees [facility] [address] [address] 12/25/2023 Mango Albert Major depressive disorder, recurrent episode with anxious distress F33.9 [facility] [place] [address] [address] 12/25/2023 Aubrie McNees [facility] [place] [address] [place] [address] 07/09/2024 Mango Besson [facility] [place] [address] [place] [address] 07/22/2024 Aubrie McNees [facility] [address] [place] [address] 07/22/2024 Mango Besson [facility] [address] [place] [address] 10/21/2024 Aubrie McNees [facility] [place] [address] [place] [address] 10/21/2024 Mangoshonda Albert [facility] [place] [address] [place] [address] 10/21/2024 Mango Albert Assessments Encounter Date Diagnosis [...] she stopped her venalafaxine after discharge from [facility] due to confusion from d/c medication list. [...] End Date [place] [address] [place] [place] [address] [id number] Shantal Stanford Self - patient is the insured [facility] [address] [place] [address] [id number] Shantal Stanford Self - patient is the insured [employer] [address] [place] [address] ACL Shantal Stanford Self - patient is [...] on brain 08/20/23 Hospitalization History Reason Date(Month/Year) [facility] Pneumonia 07/11- - stage 4 cancer 08/17-09/05/2023 rhinovirus 03/2020 [facility]-pneumonia 03/2019 pneumonia 03/2015 COPD 2013 above
[2024-11-14 11:13] VITALS: BP 132/79; PULSE 79; RESP 18; TEMP 36.4; O2SAT 98
[2024-11-14] MEDS: DEXAMETHASONE 4MG TABLET 12 MG PO (11:13)
[2024-11-14] MEDS: SODIUM CHLORIDE 0.9% 10ML FLUSH SYRINGE 10 ML IV (11:14)
[2024-11-14 11:51] VITALS: BP 127/69; PULSE 77; RESP 18; O2SAT 98
[2024-11-14] MEDS: TOPOTECAN HCL IV (11:51)
[2024-11-14] MEDS: SODIUM CHLORIDE 0.9% IV (11:51)
[2024-11-14 12:38] VITALS: BP 123/58; PULSE 92; RESP 18; O2SAT 98
== END 2024-11-14 12:38 | disposition home or self-care (01) ==
LOC: INF 11:09
PROVIDERS: PCP Internal Medicine Adolescent Medicine; Visit Provider Internal Medicine Medical Oncology
DX: C34.91 Malignant neoplasm of unspecified part of right bronchus or lung (principal); Z51.11 Encounter for antineoplastic chemotherapy
CPT/HCPCS: 96413; J8540; J9351

== ENCOUNTER 2024-11-15 10:42 | Outpatient (CLI) | payer MEDICARE, BC, SELFPAY ==
--- OUTSIDE RECORDS SUMMARY | 2024-06-29 17:30 | XMS_ITS ---
Author Organization [facility] Address [address] [place] [address] Care Team Providers Care Manager Development Name Role Phone Mango Albert Primary Care Provider Migration, Provider Unavailable Unavailable Allergies Allergen (clinical drug ingredient) Drug/Non Drug Allergy documented on EMR Reaction Allergy Type Onset Date Status levetiracetam Keppra Unknown Drug Allergy Act farideh Penicillin Unknown Drug Allergy Active REAS[facility] FOR VISIT [facility] Encounter Medications Medication SIG (Take, Route, Frequency, Duration) Notes Start Date End Date Status Vitamin D3 25 MCG 1 tab(s) orally once a day Active Vitamin B1 50 MG 1 TAB(S) ORALLY ONCE A DAY *Please review and pick correct strength-formulat ion from [facility] options. If intended option is not shown, [...] MOUTH INHALED EVERY 2 HOURS DIRECTED . BROOD HATCHERY MANAGER RECOMMENDS NOT TO EXCEED 12 INHALATIONS A [...] a day; Duration: 90 days Active Nystatin 002539 UNIT/ML 5 ML orally 4 times a day; Duration: 15 days swish and swallow 09/22/2023 Active Nystatin 823876 UNIT/GM 1 denise applied topically 2 times a day 09/14/2023 Active Protonix 40 MG TAKE 1 TABLET BY MOUTH DAILY orally once a day; Duration: 90 days Active Atorvastatin Calcium 80 MG 1 tab(s) orally once a day; Duration: 90 Active Euthyrox 200 MCG (0.2 MG) 1 TAB(S) ORALLY ONCE A DAY; Duration: 90 DAYS *Please review and pick correct strength-formulat ion from [employer] options. If intended option is not shown, discontinue and re-order from Quick Search* Active Synthroid 25 MCG 1 tab(s) orally once a day; Duration: 90 days Active Trelegy Ellipta 200 MCG-62.5 MCG-25 MCG/INH 1 PUFF(S) INHALED ONCE A DAY; Duration: 90 DAYS *Please review and pick correct strength-formulat ion from [employer] options. If intended option is not shown, [...] Active Encounters Encounter Location Date Provider Diagnosis [facility] [place] [address] [facility] [address] [place] [address] 06/29/2024 Provider Migration Depression with anxiety F41.8 [...] MOUTH INHALED EVERY 2 HOURS DIRECTED . BROOD HATCHERY MANAGER RECOMMENDS NOT TO EXCEED 12 INHALATIONS A [...] once a day; Duration: 90 days Nystatin 644813 UNIT/ML 5 ML orally 4 times a [...] * Shantal LEON LDOB:1960 (64 yo F)Acc No.[id number]:06/29/2024 Patient: Shantal POTTER Provider: Cody Oneil :1960 A ge:63 Y S ex:Female Date:06/29/2024 Address:[address] [place], [place] [id number] Pcp:Mango Albert Subjective: * Chief Complaints: * 1 . [facility] Encounter. * Medical History: * [...] *Please review and pick correct strength-formulation from [facility] options. If intended option is not [...] *Please review and pick correct strength-formulation from [employer] options. If intended option is not shown, discontinue and re-order from Quick Search*, Taking Famotidine 40 MG Tablet 1 tab(s) orally once a day (at bedtime) , Taking Trelegy Ellipta 200 MCG-62.5 MCG-25 MCG/INH POWDER 1 PUFF(S) INHALED ONCE A DAY , Notes to Pharmacist: *Please review and pick correct strength-formulation from [employer] options. If intended option is not shown, discontinue and re-order from Quick Search*, Taking Nystatin 568089 UNIT/GM Ointment 1 denise applied topically 2 [...] 3. S ore throat Start Nystatin Suspension, 640042 UNIT/ML, 5 ML, orally, 4 times a [...] MOUTH INHALED EVERY 2 HOURS DIRECTED . BROOD HATCHERY MANAGER RECOMMENDS NOT TO EXCEED 12 INHALATIONS A [...] Electronic signature of Prov ider Migration on 11/15/2024 at 10:56 AM EDT Sign off status: Pending * Provider: Cody albright Migration Date: 0 06/29/2024 Generated for Printi ng/Corinna/Melitting on: 0 11/15/2024 10:56 AM EDT
--- OUTSIDE RECORDS SUMMARY | 2024-10-21 08:00 | XMS_ITS ---
Author Organization [facility] [place] Address [address] [place] [address] Care Team Providers Care Slicer Machine Operator Name Role Phone Mango Albert Primary Care Provider Aubrie Garza Unavailable [phone] Allergies Allergen (clinical drug ingredient) Drug/Non Drug Allergy documented on EMR Reaction Allergy Type Onset Date Status levetiracetam Keppra Unknown Drug Allergy Act farideh Penicillin Unknown Drug Allergy Active Results Component Value Reference Range Notes COMPREHENSIVE METABOLIC RADHA Welch (29708) Reviewed date:10/22/2024 04:06:15 PM Interpretation: Performing Lab:CB, [facility] Ocmg1377 MitteMarlton Rehabilitation Hospital, [facility] Medical CenterVtchXW[address] Ludwin Sidhu Notes/Report: NON-FASTING; NON-FASTING; NON-FASTING; NON-FASTING; [...] Reviewed date:10/22/2024 04:06:15 PM Interpretation: Performing Lab:ALEKSANDR Logue Transporte1355 [employer], MossoCacfEZ[address] Ludwin Sidhu Notes/Report: NON-FASTING; NON-FASTING; NON-FASTING; NON-FASTING; NON-FAST MAGNESIUM 1.6 1.5-2.5 mg/dL CBC (INCLUDES DIFF/PLT) (639 9) Reviewed date:10/22/2024 04:06:16 PM Interpretation: Performing Lab:ALEKSANDR boomtrain-Paladione1355 [employer], MossoYfdmHE[address] Ludwin Sidhu Notes/Report: NON-FASTING; NON-FASTING; NON-FASTING; NON-FASTING; [...] MPV 8.6 7.5-12.5 fL ABSOLUTE NEUTROPHILS 7746 9180-0941 cells/uL ABSOLUTE LYMPHOCYTES 3976 794-5418 cells/uL ABSOLUTE MONOCYTES 508 200-950 cells/uL ABSOLUTE EOSINOPHILS 0 15-500 cells/uL ABSOLUTE BASOPHILS 9 0-200 cells/uL NEUTROPHILS 82.4 LYMPHOCYTES 12.1 MONOCYTES 5.4 EOSINOPHILS 0.0 BASOPHILS 0.1 HEMOGLOBIN A1c (496) Reviewed date:10/22/2024 04:06:16 PM Interpretation: Performing Lab:ALEKSANDR boomtrain-Jade [employer] Ftuh7936 WellteClarion Psychiatric Center[address] Ludwin Sidhu Notes/Report: NON-FASTING; NON-FASTING; NON-FASTING; [...] diagnosis of diabetes in children. According to [place] Diabetes Association (ADA) guidelines, hemoglobin A1c <7.0% represents optimal control in non- diabetic patients. Different metrics may apply to specific patient populations. Standards of Medical Care in Diabetes(ADA). TSH W/REFLEX TO FT4 (50839) Reviewed date:10/22/2024 04:06:16 PM Interpretation: Performing Lab:ALEKSANDR boomtrain-[place] Mpar8144 E2E NetworksMarlton Rehabilitation [facility], [facility] ServicesLozxUO[address] Ludwin Sidhu Notes/Report: NON-FASTING; NON-FASTING; NON-FASTING; NON-FASTING; [...] review and pick correct strength-formulati on from Cadeespan options. If intended option is not shown, [...] 10/21/2024 Encounters Encounter Location Date Provider Diagnosis [address] [address] 10/21/2024 Aubrie McNees Small cell lung canc [...] Next Appt Details Follow Up: 3 Months,prn, [place] son: Progress Notes * Shantal LEON LDOB:1960 (64 yo F)Acc No.[id number]:10/21/2024 Progress Notes Patient: Shantal POTTER Provider: Kevon Garza APRN :1960 A ge:64 Y S ex:Female Date:10/21/2024 Address:[address] [place] [address] [address], [place] Pcp:Mango Albert Subjective: * Chief Complaints: [...] a molly , COPD 2012, pneumonia 03/2015, [facility]-pneumonia 03/2019, rhinovirus 03/2020, - stage 4 cancer 08/17-09/05/2023, [facility] Pneumonia 07/11-. * Family History: F ather: [...] *Please review and pick correct strength-formulation from Diffon options. If intended option is not shown, [...] - % * A BSOLUTE NEUTROPHILS 7746 5225-7897 - cells/uL * L YMPHOCYTES 12.1 - % * A BSOLUTE LYMPHOCYTES 4952 030-4928 - cells/uL * M ONOCYTES 5.4 - [...] PM EDT > labs look good Elian [facility] 10/22/2024 04:06:08 PM EDT > pt [...] 12:51:24 PM EDT > labs look good [place] [facility] 10/22/2024 04:06:08 PM EDT > pt notifiedThis lab was reviewed by Evaristo Plummer on 10/22/2024 at 16:06 PM EDT Notes: Will check A1c with upcoming oncology labs??5.?Hyponatremia?LAB: COMPREHENSIVE METABOLIC PANEL (82284)* Value Reference Range G LUCOSE 178 H [...] to labs??7.?Acquired hypothyroidism?LAB: TSH W/REFLEX TO FT4 (77644)* Value Reference Range T SH W/REFLEX TO [...] 10/21/2024 Generated for Rasheed park/Corinna/Pedrosmitting on: 0 11/15/2024 10:56 AM EDT History and Physical Notes * [...]
--- OUTSIDE RECORDS SUMMARY | 2024-11-15 10:56 | XMS_ITS ---
Author Organization Healthcare Address [address] [place] [address] Care Team Providers Care Medical Sales Name Role Phone Mango Albert MD Primary Care Provider [phone] Active Problems Problem Noted Date Diagnosed Date [...]
--- OUTSIDE RECORDS SUMMARY | 2024-11-15 10:57 | XMS_ITS | Clinical Summary ---
Author Organization Healthcare Address [address] [place] [address] Care Team Providers Care Load Manager Name Role Phone Mango Albert MD Primary Care Provider [phone] Allergies Active Allergy Reactions Criticality Noted Date [...] by mouth every night. 4 Active Multiple Vitamins-Padded Products Inspector Trimmer als (multivitamin with minerals) tablet Take 1 [...] - Risk 60-74 years 1-dose series) 2019 [id number] Vaccine (2 - Erasto risk series) 12/24/2020 [...] this topic Medical Devices Implanted Type Area Nutrition Associate Device Identifier Shelf Expiration Date Model / Serial / Lot Graft Dura Repair 2x2 Synthe[employer] - [id number] Implanted:Qty: 1 on 08/23/2023 by Nahum Peterson MD at [facility] Left: Brain Bkam [id number] 10/24/2025 [id number] .[id number] / / [id number] Cover, Neuro Ketan Lp 17mm - [id number] Implanted:Qty: 1 on 08/23/2023 by Nahum Peterson MD at [facility]-876357 [id number] / / Plate, 2 Hole Low Profile - [id number] Implanted:Qty: 1 on 08/23/2023 by Nahum Peterson MD at [facility]-897642 421.502 / / Screw Ti Matrixneuro Selfdrill 4mm - [id number] Implanted:Qty: 1 on 08/23/2023 by Nahum Peterson MD at [facility]652010 [id number] .01 / / Procedures Procedure Name Priority Date/Time Associated Diagnosis Comments HEPATITIS C ANTIBODY - ED W/REFLEX TO HCV QUANT PCR STAT 08/20/2023 6:36 AM EDT from Last 3 Months or Most Recently Relevant to Health Maintenance Results * Hepatitis C Antibody - ED (08/20/2023 6:36 AM EDT) Hepatitis C Antibody Negative Negative 08/20/2023 7:37 AM EDT [facility] Blood Venous blood specimen / Unknown Venipuncture / Unknown 08/20/2023 6:36 AM EDT 08/20/2023 6:58 AM EDT Neftaly Botello MD LAB BLOOD ORDERABLES Final Re sult [facility] [address] [place] [address] from Last 3 Months or Most Recently Relevant to Health Maintenance Insurance MEDICARE ANTHEM Advance Directives * Full Code (Latest Code Status on File) Date Activated Date Inactivated Comments 08/20/2023 1:42 PM 09/05/2023 7:24 PM Question Answer Comments Patient has decision-making capacity? Yes Care Teams Load Manager Relationship Specialty Start Date End Date Mango Albert MD [address] [place] [address] PCP - General Internal Medicine 08/20/23
--- OUTSIDE RECORDS SUMMARY | 2024-11-15 10:58 | XMS_ITS | Patient Health Record ---
Author Organization [facility] [place] Address [address] [facility] [address] [place] [address] Care Team Providers Care School Supervisor Name Role Phone Mango Albert Primary Care Provider Aubrie Garza Unavailable [phone] Migration, Provider Unavailable Unavailable Allergies Allergen (clinical drug ingredient) Drug/Non Drug Allergy documented on EMR Reaction Allergy Type Onset Date Status levetiracetam Keppra Unknown Drug Allergy Act farideh Penicillin Unknown Drug Allergy Active Results Component Value Reference Range Notes COMPREHENSIVE METABOLIC RADHA Welch (24601) Reviewed date:10/22/2024 04:06:15 PM Interpretation: Performing Lab:CB, [facility] [address], [facility] HospitalRyohBY[address] Ludwin Sidhu Notes/Report: NON-FASTING; NON-FASTING; NON-FASTING; NON-FASTING; [...] Reviewed date:10/22/2024 04:06:15 PM Interpretation: Performing Lab:ALEKSANDR GL [address], DemoHireHgdbMF[address] Ludwin Sidhu Notes/Report: NON-FASTING; NON-FASTING; NON-FASTING; NON-FASTING; NON-FAST MAGNESIUM 1.6 1.5-2.5 mg/dL CBC (INCLUDES DIFF/PLT) (639 9) Reviewed date:10/22/2024 04:06:16 PM Interpretation: Performing Lab:ALEKSANDR Deem[employer]-The [address], DemoHireGvtkON[address] Ludwin Sidhu Notes/Report: NON-FASTING; NON-FASTING; NON-FASTING; NON-FASTING; [...] MPV 8.6 7.5-12.5 fL ABSOLUTE NEUTROPHILS 7746 1183-6646 cells/uL ABSOLUTE LYMPHOCYTES 2705 105-8888 cells/uL ABSOLUTE MONOCYTES 508 200-950 cells/uL ABSOLUTE EOSINOPHILS 0 15-500 cells/uL ABSOLUTE BASOPHILS 9 0-200 cells/uL NEUTROPHILS 82.4 LYMPHOCYTES 12.1 MONOCYTES 5.4 EOSINOPHILS 0.0 BASOPHILS 0.1 HEMOGLOBIN A1c (496) Reviewed date:10/22/2024 04:06:16 PM Interpretation: Performing Lab:ALEKSANDR [facility]-[employer] [address] miLibristeEagleville Hospital[address] Ludwin Sidhu Notes/Report: NON-FASTING; NON-FASTING; NON-FASTING; [...] diagnosis of diabetes in children. According to [place] Diabetes Association (ADA) guidelines, hemoglobin A1c <7.0% represents optimal control in non- diabetic patients. Different metrics may apply to specific patient populations. Standards of Medical Care in Diabetes(ADA). TSH W/REFLEX TO FT4 (52773) Reviewed date:10/22/2024 04:06:16 PM Interpretation: Performing Lab:ALEKSANDR [facility] Et[address] miLibristeInspira Medical [facility] [place], [facility]ent[facility] HealthCyytYB[address] Ludwin Sidhu Notes/Report: NON-FASTING; NON-FASTING; NON-FASTING; NON-FASTING; [...] Immunizations Vaccine Route Administration Date Status Comme [facility] Prevnar PCV-13 (Pneumococcal [...] complication (E11.69) Active confirmed Problem Mixed hyperlipidemia (144898442) Mixed hyperlipidemia (E78.2) Active confirmed Problem Hypomagnesemia (939038036) Hypomagnesemia (E83.42) Active confirmed Problem Obstructive sleep apnea syndrome (disorder) (20650693) Obstructive sleep apnea (adult) (pediatric) (G47.33) Active confirmed Problem Essential hypertension (65131793) Essential (primary) hypertension (I10) Active confirmed Problem Mucopurulent chronic bronchitis (25373279) Mucopurulent chronic bronchitis (J41.1) Active confirmed Problem Fvcmk-qs-niigzav hypoxemic respiratory failure (60395038641091501) Acute and chronic respiratory failure with hypoxia (J96.21) Active confirmed Problem Nicotine dependence (60891370) Personal history of nicotine dependence (Z87.891) Active confirmed Problem Mixed anxiety and depressive disorder (349019496) Depression with anxiety (F41.8) Active confirmed Problem Gastroesophageal reflux disease (716825050) GERD without esophagitis (K21.9) Active confirmed Problem Tobacco abuse (9465979278) Tobacco abuse (Z72.0) Active confirmed Problem Acute exacerbation o f chronic obstructive airways disease (038915476) COPD exacerbation (J44.1) Active confirmed Problem Obese class II (606843548053528) BMI 39.0-39.9,adult (Z68.39) Active confirmed Problem Gastroesophageal reflux disease with esophagitis (disorder) (975664451) GERD with esophagitis (K21.0) Active confirmed Problem COPD - Chronic obstructive pulmonary disease (87672253) Chronic obstructive pulmonary disease, unspecified COPD type (J44.9) Active confirmed Problem Acquired hypothyroidism (291277087) Acquired hypothyroidism (E03.9) Active confirmed Problem Morbid obesity (763740220) Morbid obesity due to excess calories (E66.01) Active confirmed Problem Insomnia disorder related to another mental disorder (14775195) Psychophysiological insomnia (F51.04) Active confirmed Problem Body mass index 40+ - severely obese (902028200) Body mass index (BMI) of 40.1-44.9 in adult (Z68.41) Active confirmed Problem Pulmonary nodule (694086717) Pulmonary nodule (R91.1) Active confirmed Problem Dysphagia (98512111) Dysphagia, unspecified type (R13.10) Active confirmed Problem Obstructive sleep apnea syndrome (75921373) DANNY on CPAP (G47.33) Active confirmed Problem Familial hypercholesterolemia (223721746) Familial hypercholesterolemia (E78.01) Active confirmed Problem Tobacco use (084518466) Tobacco use disorder (F17.200) Active confirmed Problem Acute exacerbation o f chronic obstructive airways disease (252810169) Acute exacerbation of chronic obstructive pulmonary disease (COPD) (J44.1) Active confirmed Problem Chronic obstructive lung disease co-occurrent with acute bronchitis (843394328117130) Acute bronchitis with chronic obstructive pulmonary disease (COPD) (J44.0) Active confirmed Problem Recurrent major depression (65406869) Major depressive disorder, recurrent episode with anxious distress (F33.9) Active confirmed Problem Small cell lung cancer (770017387) Small cell lung cancer (C34.90) Active confirmed Problem Metastasis to brain (08088090) Metastasis to brain (C79.31) Active confirmed Vital Signs Heart Rate 92 /min 10/21/2024 Temperature 98 degrees Fahrenheit 10/21/2024 Blood pressure diastolic 80 mm Hg 10/21/2024 Height 5 ft 5 in in 10/21/2024 Blood pressure systolic 145 mm Hg 10/21/2024 Weight 188 lbs 10/21/2024 BMI 31.28 kg/m2 10/21/2024 Encounters Encounter Location Date Provider Diagnosis [facility] [address] [place] [address] 06/29/2024 Provider Migration Depression with anxiety F41.8 ; Major depressive disorder, recurrent episode with anxious distress F33.9 and Sore throat J02.9 [facility] [address] [address] 07/22/2024 Aubrie McNees Small cell lung canc er C34.90 ; Encounter for Medicare annual wellness exam Z00.00 ; Metastasis to brain C79.31 ; Depression with anxiety F41.8 ; Type 2 diabetes mellitus with other specified complication E11.69 ; Hyponatremia E87.1 ; Hypomagnesemia E83.42 ; Acquired hypothyroidism E03.9 ; Mixed hyperlipidemia E78.2 ; Obstructive sleep apnea (adult) (pediatric) G47.33 and Essential (primary) hypertension I10 [facility] [place] [address] [address] 10/21/2024 Aubrie McNees Small cell lung canc er C34.90 ; Metastasis to brain C79.31 ; Depression with anxiety F41.8 ; Type 2 diabetes mellitus with other specified complication E11.69 ; Hyponatremia E87.1 ; Hypomagnesemia E83.42 ; Acquired hypothyroidism E03.9 ; Mixed hyperlipidemia E78.2 ; Obstructive sleep apnea (adult) (pediatric) G47.33 and Essential (primary) hypertension I10 [facility] [place] [address] [address] 12/06/2023 Aubrie McNees [facility] [place] [address] [address] 12/25/2023 Mango Albert Major depressive disorder, recurrent episode with anxious distress F33.9 [facility] [place] [address] [address] 12/25/2023 Aubrie McNees [facility] [address] [place] [address] 07/09/2024 Mango Besson [facility] [address] [place] [address] 07/22/2024 Aubrie McNees [facility] [address] [place] [address] 07/22/2024 Mango Besson [facility] [address] [place] [address] 10/21/2024 Aubrie McNees [facility] [address] [place] [address] 10/21/2024 Mango Albert [facility] [address] [place] [address] 10/21/2024 Mango Albert Assessments Encounter Date Diagnosis [...] C-CMP 05/01/2020 C-LIPID PANEL 05/01/2020 C-LIPID PANEL 09/05/2016 C-LIPID PANEL 06/24/2013 C-LIPID PANEL 05/07/2013 C-TSH 08/17/2015 C-TSH 06/24/2013 C-TSH 05/07/2013 C-TSH [...] End Date [place] [address] [id number] Shantal Stanford Self - patient is the insured [facility] [address] [place] [address] [id number] Shantal Stanford Self - patient is the insured [employer] [address] [place] [address] ACL Shantal Stanford Self - patient is [...] on brain 08/20/23 Hospitalization History Reason Date(Month/Year) [facility] Pneumonia 07/11- - stage 4 cancer 08/17-09/05/2023 rhinovirus 03/2020 [facility]-pneumonia 03/2019 pneumonia 03/2015 COPD 2013 above
[2024-11-15 11:00] VITALS: BP 153/76; PULSE 73; RESP 20; TEMP 36.6; O2SAT 98
[2024-11-15] MEDS: DEXAMETHASONE 4MG TABLET 12 MG PO (11:00)
[2024-11-15] MEDS: SODIUM CHLORIDE 0.9% 10ML FLUSH SYRINGE 10 ML IV (11:04)
[2024-11-15 11:27] VITALS: BP 142/70; PULSE 78; RESP 20; O2SAT 98
[2024-11-15] MEDS: SODIUM CHLORIDE 0.9% IV (11:27)
[2024-11-15] MEDS: TOPOTECAN HCL IV (11:27)
[2024-11-15 12:10] VITALS: BP 136/68; PULSE 80; RESP 20; O2SAT 97
== END 2024-11-15 12:10 | disposition home or self-care (01) ==
LOC: INF 10:44
PROVIDERS: PCP Internal Medicine Adolescent Medicine; Visit Provider Internal Medicine Medical Oncology
DX: C34.91 Malignant neoplasm of unspecified part of right bronchus or lung (principal); Z51.11 Encounter for antineoplastic chemotherapy
CPT/HCPCS: 96413; J8540; J9351